=== PATIENT | female | born 1975 ===

== ENCOUNTER → 2020-07-15 11:32 | Outpatient (BNVA) | payer OTHER, SELFPAY | PROVIDERS: PCP Nurse Practitioner; Visit Provider Nurse Practitioner Gerontology | DX: E11.65 Type 2 diabetes mellitus with hyperglycemia (principal); E11.42 Type 2 diabetes mellitus with diabetic polyneuropathy; Z79.4 Long term (current) use of insulin; I10 Essential (primary) hypertension; E55.9 Vitamin D deficiency, unspecified | CPT/HCPCS: 82947; 99214 ==

== ENCOUNTER → 2020-09-10 09:10 | Outpatient (BNVA) | payer OTHER, SELFPAY | PROVIDERS: PCP Nurse Practitioner; Visit Provider Nurse Practitioner Gerontology | DX: Z76.89 Persons encountering health services in other specified circumstances (principal) ==

== ENCOUNTER 2020-09-11 13:25 | Outpatient (REF) | payer OTHER, SELFPAY | END 2020-09-11 13:26 | disposition home or self-care (01) | LOC: HO.LAB 13:25 | PROVIDERS: PCP Hospitalist; Visit Provider Internal Medicine | DX: Z20.828 Contact with and (suspected) exposure to other viral communicable diseases (principal) | CPT/HCPCS: C9803; U0003 ==

== ENCOUNTER → 2020-10-25 09:33 | Outpatient (BNVA) | payer OTHER, SELFPAY | PROVIDERS: PCP Hospitalist; Visit Provider Nurse Practitioner Gerontology ==

== ENCOUNTER → 2020-12-16 11:26 | Outpatient (BNVA) | payer OTHER, SELFPAY | PROVIDERS: PCP Hospitalist; Visit Provider Nurse Practitioner Gerontology | DX: E11.42 Type 2 diabetes mellitus with diabetic polyneuropathy (principal); E11.65 Type 2 diabetes mellitus with hyperglycemia; Z79.4 Long term (current) use of insulin; I10 Essential (primary) hypertension; E55.9 Vitamin D deficiency, unspecified | CPT/HCPCS: 82947 ==

== ENCOUNTER → 2021-01-30 10:26 | Outpatient (BNVA) | payer OTHER, SELFPAY | PROVIDERS: PCP Hospitalist; Visit Provider Nurse Practitioner Gerontology | DX: E11.42 Type 2 diabetes mellitus with diabetic polyneuropathy (principal); I10 Essential (primary) hypertension; E55.9 Vitamin D deficiency, unspecified | CPT/HCPCS: 82947 ==

== ENCOUNTER → 2021-05-02 10:13 | Outpatient (BNVA) | payer OTHER, SELFPAY | PROVIDERS: PCP Hospitalist; Visit Provider Nurse Practitioner Gerontology | DX: E11.42 Type 2 diabetes mellitus with diabetic polyneuropathy (principal); I10 Essential (primary) hypertension; E55.9 Vitamin D deficiency, unspecified | CPT/HCPCS: 82947; 99212 ==

== ENCOUNTER → 2021-10-02 12:33 | Outpatient (BNVA) | payer OTHER, SELFPAY | PROVIDERS: PCP Hospitalist; Visit Provider Nurse Practitioner Gerontology | DX: E11.42 Type 2 diabetes mellitus with diabetic polyneuropathy (principal); E55.9 Vitamin D deficiency, unspecified; I10 Essential (primary) hypertension | CPT/HCPCS: 82947; 83036; 99212 ==

== ENCOUNTER 2021-10-14 12:41 | Outpatient (REF) | payer OTHER, SELFPAY ==
[2021-10-14 14:03] LABS: COVID-19 Test Negative (Negative); IDNOW Serial# 16C4AD1C
== END 2021-10-14 12:42 | disposition home or self-care (01) ==
LOC: HO.LAB 12:41
PROVIDERS: Visit Provider Internal Medicine
DX: Z20.822 Contact with and (suspected) exposure to COVID-19 (principal)
CPT/HCPCS: 87635; C9803

== ENCOUNTER → 2022-01-01 12:48 | Outpatient (BNVA) | payer OTHER, SELFPAY | PROVIDERS: PCP Hospitalist; Visit Provider Nurse Practitioner Gerontology | DX: E11.42 Type 2 diabetes mellitus with diabetic polyneuropathy (principal); E55.9 Vitamin D deficiency, unspecified; I10 Essential (primary) hypertension | CPT/HCPCS: 82947; 83036; 99212 ==

== ENCOUNTER → 2022-02-05 12:50 | Outpatient (BNVA) | payer OTHER, SELFPAY | PROVIDERS: PCP Hospitalist; Visit Provider Registered Nurse Diabetes Educator | DX: E11.65 Type 2 diabetes mellitus with hyperglycemia (principal); Z79.4 Long term (current) use of insulin | CPT/HCPCS: 99211 ==

== ENCOUNTER → 2022-03-11 12:12 | Outpatient (BNVA) | payer OTHER, SELFPAY | PROVIDERS: PCP Hospitalist; Visit Provider Registered Nurse Diabetes Educator | DX: E11.65 Type 2 diabetes mellitus with hyperglycemia (principal); Z79.4 Long term (current) use of insulin | CPT/HCPCS: 99211 ==

== ENCOUNTER 2022-03-20 11:58 | Emergency (ER) | payer OTHER, SELFPAY ==
--- NOTE | ~2022-03-20 | XR_ITS ---
EXAMINATION: XR CHEST CLINICAL INFORMATION: Chest pain COMPARISON: Previous chest x-ray June 2019 TECHNIQUE: Frontal view of the chest was obtained. FINDINGS: No significant abnormality is noted involving the heart, lungs, mediastinum, bony thorax or soft tissues. XR/XR chest 1V IMPRESSION: Unremarkable examination.
--- NOTE | 2022-03-20 12:01 | ECG_ITS ---
Test Reason : cp Blood Pressure : / mmHG Vent. Rate : 076 BPM Atrial Rate : 076 BPM P-R Int : 182 ms QRS Dur : 078 ms QT Int : 376 ms P-R-T Axes : 014 007 024 degrees QTc Int : 423 ms Normal sinus rhythm Cannot rule out Anterior infarct (cited on or before 26-SEP-2016) Abnormal ECG When compared with ECG of 24-JUL-2019 21:19, No significant change was found Referred By: Generic ED Physician Electronically Signed By:HARVEY ELIZABETH MD
[2022-03-20 12:11] VITALS: BP 137/81; PULSE 78; RESP 18; TEMP 36.9; O2SAT 98; BMI 34.9
[2022-03-20 12:28] LABS: MANUAL DIFF FLAG NO
[2022-03-20 12:36] LABS: Basophils Percent Auto 0.2 % (0-2); Eosinophils Absolute Auto 0.1 X10*3/uL (0.0-0.4); Hemoglobin 12.3 g/dl (12.0-16.0); Imm Gran Abs Auto 0.05 X10*3/uL (0.00-0.03); Imm Gran Pct Auto 0.4 % (0.0-0.4); Lymphocytes Absolute Auto 3.3 X10*3/uL (1.2-4.9); Lymphocytes Percent Auto 25.8 % (20-40); Mean Corpuscular HGB Conc 32.4 g/dl (31.0-35.0); Mean Corpuscular Hemoglobin 27.8 pg (27.0-33.0); Mean Platelet Volume 10.5 fL (9.4-12.3); Monocytes Absolute Auto 0.6 X10*3/uL (0.1-1.2); Monocytes Percent Auto 4.9 % (2-11); Neutrophils Absolute Auto 8.7 x10*3/uL (2.0-8.3); Neutrophils Percent Auto 67.7 % (45-73); Platelet Count 364 X10*3/uL (160-400); Red Blood Count 4.42 X10*6/uL (4.20-5.50); Red Cell Distribution Width 13.6 % (11.0-16.0); White Blood Count 12.8 X10*3/uL (4.8-10.8)
[2022-03-20 12:46] LABS: Alanine Aminotransferase 26 U/L (0-31); Albumin Level 4.1 g/dL (3.5-5.0); Alkaline Phosphatase 80 U/L (39-117); Anion Gap 13 (12-20); Aspartate Amino Transferase 23 U/L (5-31); Bilirubin Total 0.3 mg/dL (0.0-1.0); Blood Urea Nitrogen 11 mg/dL (9-16); Calcium 9.6 mg/dL (8.4-10.2); Carbon Dioxide 25 mmol/L (22-29); Chloride 103 mmol/L (96-108); Creatinine Clr Calc Pharmacy 109.3; Estimated Glomerular Filt Rate > 60; Glucose Random 204 mg/dL (60-115); Sodium 137 mmol/L (135-145)
[2022-03-20 12:52] LABS: Troponin-I High Sensitivity < 3.5 ng/L (<3.5-17.0)
--- NOTE | 2022-03-20 12:53 | ED_ITS ---
HPI - Chest Pain General Chief Complaint: Chest Pain Stated Complaint: chest pains Time Seen by Provider: 03/20/22 12:53 Source: patient and family (daughter interpreting) Mode of arrival: ambulatory Limitations: language barrier (speaks thai) History of Present Illness HPI narrative: 46-year-old female who is Turkmen speaking here with her daughter who translatesfor her, presenting for chest pain and rash on chest for the last 3 days. Patient has felt a burning pain in her chest that is worse today. The pain is constant, and is worse with movement. No radiation of pain, no diaphoresis no nausea no shortness of breath. Patient does not smoke or drink, is vaccinated for COVID. Patient states she has a burning spot on her upper left chest. Past medical history insulin-dependent diabetes, hypertension, GERD, depression, anxiety, leukocytosis, migraine. Reports history of heart palpitations, is not having heart palpitations now. Patient is very concerned that she may have cancer, and wants us to run all the tests to rule out cancer. I explained to patient that that was not possible to do here in the emergency room, and that she did not Related Data Home Medications Medication Instructions Recorded Confirmed albuterol sulfate 90 mcg/actuation 2 puff inhalation Q4-5H PRN 07/04/20 01/01/22 aerosol inhaler amitriptyline 25 mg tablet 25 mg PO DAILY 07/04/20 01/01/22 fluoxetine 20 mg capsule 20 mg PO DAILY 07/04/20 01/01/22 fluticasone propionate 50 1 spray intranasal DAILY 07/04/20 01/01/22 mcg/actuation nasal spray,suspension (Flonase Allergy Relief) hydroxyzine HCl 25 mg tablet 25 mg PO BEDTIME 07/04/20 01/01/22 lisinopril 10 mg tablet 10 mg PO DAILY 07/04/20 01/01/22 lorazepam 0.5 mg tablet 0.5 mg PO DAILY PRN 07/04/20 01/01/22 quetiapine 25 mg tablet (Seroquel) 25 mg PO BEDTIME 07/04/20 05/02/21 zolpidem 10 mg tablet (Ambien) 10 mg PO BEDTIME PRN 07/04/20 01/01/22 blood sugar diagnostic #10 ea 07/15/20 01/01/22 loratadine 10 mg tablet (Allergy 10 mg PO DAILY PRN 12/16/20 01/01/22 Relief (loratadine)) meloxicam 7.5 mg tablet 7.5 mg PO DAILY 05/02/21 01/01/22 Previous Rx's Medication Instructions Recorded blood sugar diagnostic (FreeStyle 1 strip miscellaneous .qd 90 days 06/26/21 Lite Strips) #100 strips flash glucose sensor (FreeStyle 1 ea topical Q2W 90 days #6 ea 06/26/21 Sal 14 Day Sensor) glucose 4 gram chewable tablet 12 g PO Q15M PRN hypoglycemia 90 06/26/21 (Dex4 Glucose) days #60 tabs pen needle, diabetic 32 gauge x #150 ea 06/26/21 metformin 1,000 mg tablet 1,000 mg PO BID 90 days #180 tabs 06/27/21 cholecalciferol (vitamin D3) 50 50 mcg PO DAILY #30 caps 10/09/21 mcg (2,000 unit) capsule gabapentin 600 mg tablet 600 mg PO TID 30 days #90 tabs 01/01/22 insulin aspart U-100 100 unit/mL See Rx Instructions subcut TID #15 01/01/22 (3 mL) subcutaneous pen mL pen needle, diabetic 32 gauge x #125 ea 01/01/22 (BD Ultra-Fine Che Pen Needle) insulin glargine 100 unit/mL (3 32 unit (0.32 mL) subcut QAM 90 02/12/22 mL) subcutaneous pen (Lantus days #28.8 mL Solostar U-100 Insulin) triamcinolone acetonide 0.5 % 1 appl topical BID apply to rash 03/20/22 topical cream on chest #15 grams Allergies Allergy/AdvReac Type Severity Reaction Status Date / Time No Known Allergies Allergy Verified 01/01/22 13:16 Review of Systems Constitutional: Constitutional: Denies body ache(s), Denies chills, Denies fatigue, Denies fever(s), Denies headache(s), Denies malaise and Denies weakness Eyes: Eyes: Denies diplopia ENT: Denies vertigo, Denies dizziness, Denies otalgia, Denies headache(s), Denies mouth pain, Denies post nasal drip, Denies sinus pain, Denies sinus pressure, Denies sore throat and Denies throat swelling Cardiovascular: Cardiovascular: Reports chest pain, Denies syncope, Denies leg edema, Denies lightheadedness, Denies Loss of Consciousness, Denies palpitations and Denies dyspnea Respiratory: Respiratory: Denies chest congestion, Denies cough and Denies dyspnea Gastrointestinal: Gastrointestinal: Denies abdominal pain, Denies hematochezia, Denies constipation, Denies diarrhea, Denies nausea and Denies vomiting Genitourinary: Genitourinary: Reports no additional female genitourinary complaints Musculoskeletal: Musculoskeletal: Reports no additional musculoskeletal complaints and Denies back pain Integumentary/Breasts: Skin/Breast: Reports rash Neurologic: Denies confusion, Denies vertigo, Denies dizziness, Denies syncope, Denies headache(s) and Denies weakness Psychiatric: Psychiatric: Denies anxiety, Denies confusion and Denies depression Endocrine: Endocrine: Denies fatigue and Denies palpitations Allergic/Immunologic: Allergic/Immunologic: Denies throat swelling PMFSH Past Medical History Medical History Acid indigestion Anxiety Asthma Back pain Depression Leukocytosis Migraine Palpitations Surgical History Hx of section Hx of mammogram Family History Family History Father Hypertension Diabetes Heart disease Mother Diabetes Heart disease Hypertension Social History Social History (Updated 01/01/22 @ 13:51 by NARAYAN Kinsey) Household Members: Family and Children Alcohol intake: current Alcohol intake frequency: does not drink Patient Tobacco Use Status: Never used Tobacco Advance Directives: No Advance Directives Information Provided: No Patient : Yes Physical Exam Vital Signs: Vital Signs: Last Vital Signs Temp 98.2 F 03/20/22 15:20 Pulse 69 03/20/22 15:20 Resp 16 03/20/22 15:20 BP 127/77 03/20/22 15:20 Pulse Ox 98 03/20/22 15:20 O2 Del Method 03/20/22 15:20 BMI result Body Mass Index 34.9 Const: General: No confusion Nutritional Appearance: well nourished Orientation/consciousness: No confusion Limitations: no limitations Eyes: Conjunctivae: conjunctivae normal Pupils: Equal, round and reactive pupils present EOM: EOMs intact bilaterally Neck: Neck: Yes full ROM, Yes no lymphadenopathy and Yes supple Resp: Effort & Inspection: normal respiratory effort and able to speak in complete sentences Auscultation: clear to auscultation bilaterally, no crackles, no rales, no rhonchi and no wheezes Cardio: Rate: regular rate Rhythm: regular rhythm Heart sounds: S1 normal heart sound present and S2 normal heart sound present GI: Inspection: Yes normal to inspection Palpation (GI): Soft to palpation, nontender, no guarding and not rigid Percussion: Yes normal to percussion Auscultation: normal bowel sounds Skin: Other: Small scab the rash 3 cm in diameter left upper chest Neuro: General: No confusion Cranial nerves: Yes Equal, round and reactive pupils present Extrem: General: Yes normal to inspection and Yes full ROM Psych: Appearance: grossly normal Affect: normal affect Attitude: cooperative Thought process: Normal thought process present Course Course Course Narrative: 46-year-old female who is insulin-dependent diabetic presents with 3 days of chest pain and what she initially stated as a burning rash on her upper left chest. Patient is anxious, refuses morphine for concern of side effects, her chest pain resolved completely with Tylenol Patient has had stable vitals, not tachycardic, not hypoxic, she PERCs out. Patient has 2 negative troponins 3 hours apart. Patient has small 3 cm scab a rash on upper left chest. White blood cell count 12.8, blood glucose 204, chest x-ray negative, labs otherwise unremarkable Patient has a heart score of 4, EKG shows possible old anterior infarct. Initially thought rash in upper left chest could be zoster, but patient clarifies that the rash is just itchy, and is not burning in nature, is not painful. Referred patient to Cardiology, gave return precautions of chest pain, shortness of breath Daughter was there for entire workup and discussion, she translated everything into Turkmen. All patient's questions and daughter's questions were answered Reevaluation(s) Reevaluation #1: FINDINGS: No significant abnormality is noted involving the heart, lungs, mediastinum, bony thorax or soft tissues. XR/XR chest 1V IMPRESSION: Unremarkable examination. ? MDM - Chest Pain Lab Data Result diagrams: 03/20/22 12:25 03/20/22 12:25 Labs: Lab Results 03/20/22 03/20/22 03/20/22 Range/Units 12:25 12:25 12:25 WBC 12.8 H (4.8-10.8) X10*3/uL RBC 4.42 (4.20-5.50) X10*6/uL Hgb 12.3 (12.0-16.0) g/dl Hct 38.0 (37.0-47.0) % MCV 86.0 (80.0-98.0) fL MCH 27.8 (27.0-33.0) pg MCHC 32.4 (31.0-35.0) g/dl RDW 13.6 (11.0-16.0) % Plt Count 364 (160-400) X10*3/uL MPV 10.5 (9.4-12.3) fL Immature Gran % (Auto) 0.4 (0.0-0.4) % Neut % (Auto) 67.7 (45-73) % Lymph % (Auto) 25.8 (20-40) % [place] % (Auto) 4.9 (2-11) % Eos % (Auto) 1.0 (0-4) % Baso % (Auto) 0.2 (0-2) % Lymph # (Auto) 3.3 (1.2-4.9) X10*3/uL [place] # (Auto) 0.6 (0.1-1.2) X10*3/uL Eos # (Auto) 0.1 (0.0-0.4) X10*3/uL Baso # (Auto) 0.0 (0.0-0.2) X10*3/uL Abs Immat Gran (auto) 0.05 H (0.00-0.03) X10*3/uL Absolute Neuts (auto) 8.7 H (2.0-8.3) x10*3/uL Absolute Nucleated RBC 0.000 (0.0-0.012) X10*3/uL Nucleated RBC % (auto) 0.0 (0.0-0.2) /100WBC Sodium 137 (135-145) mmol/L Potassium 4.0 (3.3-5.1) mmol/L Chloride 103 (96-108) mmol/L Carbon Dioxide 25 (22-29) mmol/L Anion Gap 13 (12-20) BUN 11 (9-16) mg/dL Creatinine 0.70 (0.5-1.4) mg/dL Estim Creat Clear Calc 109.3 Estimated GFR > 60 POC Glucose (60-115) mg/dL Random Glucose 204 H (60-115) mg/dL Calcium 9.6 (8.4-10.2) mg/dL Total Bilirubin 0.3 (0.0-1.0) mg/dL AST 23 (5-31) U/L ALT 26 (0-31) U/L Alkaline Phosphatase 80 (39-117) U/L Troponin I High Sens < 3.5 (<3.5-17.0) ng/L Total Protein 8.0 (6.5-8.0) g/dL Albumin 4.1 (3.5-5.0) g/dL 03/20/22 03/20/22 Range/Units 15:02 15:36 WBC (4.8-10.8) X10*3/uL RBC (4.20-5.50) X10*6/uL Hgb (12.0-16.0) g/dl Hct (37.0-47.0) % MCV (80.0-98.0) fL MCH (27.0-33.0) pg MCHC (31.0-35.0) g/dl RDW (11.0-16.0) % Plt Count (160-400) X10*3/uL MPV (9.4-12.3) fL Immature Gran % (Auto) (0.0-0.4) % Neut % (Auto) (45-73) % Lymph % (Auto) (20-40) % [place] % (Auto) (2-11) % Eos % (Auto) (0-4) % Baso % (Auto) (0-2) % Lymph # (Auto) (1.2-4.9) X10*3/uL [place] # (Auto) (0.1-1.2) X10*3/uL Eos # (Auto) (0.0-0.4) X10*3/uL Baso # (Auto) (0.0-0.2) X10*3/uL Abs Immat Gran (auto) (0.00-0.03) X10*3/uL Absolute Neuts (auto) (2.0-8.3) x10*3/uL Absolute Nucleated RBC (0.0-0.012) X10*3/uL Nucleated RBC % (auto) (0.0-0.2) /100WBC Sodium (135-145) mmol/L Potassium (3.3-5.1) mmol/L Chloride (96-108) mmol/L Carbon Dioxide (22-29) mmol/L Anion Gap (12-20) BUN (9-16) mg/dL Creatinine (0.5-1.4) mg/dL Estim Creat Clear Calc Estimated GFR POC Glucose 85 (60-115) mg/dL Random Glucose (60-115) mg/dL Calcium (8.4-10.2) mg/dL Total Bilirubin (0.0-1.0) mg/dL AST (5-31) U/L ALT (0-31) U/L Alkaline Phosphatase (39-117) U/L Troponin I High Sens < 3.5 (<3.5-17.0) ng/L Total Protein (6.5-8.0) g/dL Albumin (3.5-5.0) g/dL ECG Data ECG #1: Interpretation: EKG shows sinus at a rate of 76, OH interval 182, QRS 78, QTC 423, normal axis, Q-waves in leads 3, V1, V2 no ST depression or elevation, no T-wave abnormalities Possible old anterior infarct Scores Heart Score History: -0- slightly suspicious ECG: -1- non specific repolarization disturbance Age: -1- >45 - <65 Risk factory: -2- 3 or more risk factors or treated atherosclerosis Troponin: -0- < or = normal limit Score: 4 Risk: 16.6% Discharge Plan Discharge Clinical Impression: Atypical chest pain, Rash Patient Disposition: Home, Self-Care Instructions: Chest Pain (ED), Acute Rash (ED) Additional Instructions: I have referred her to Cardiology as a follow-up from today's emergency room visit. If you do not hear from them by Wednesday I want you to call them at [phone] I have prescribed a cream to her pharmacy which you may apply to the rash on her chest twice a day until the rash goes away Please alternate Tylenol and ibuprofen for pain. Take 1 or the other every 4 hours. For example, at midnight take 1000 mg of Tylenol, then at 4:00 a.m. take 800 mg ibuprofen, at 8:00 a.m. take 1000 mg of Tylenol, at noon take 800 mg of ibuprofen, at 4:00 p.m. take 1000 mg of Tylenol, at 8:00 p.m. take 800 mg of ibuprofen. Do not exceed 3000 mg of Tylenol in 24 hours. This method is proven to be as effective as an opioid for pain control. If you have worsening chest pain, shortness of breath, or any other new or concerning symptoms, please return to the emergency room Prescriptions: New triamcinolone acetonide 0.5 % cream 1 appl topical BID Qty: 15 0RF No Action FreeStyle Lite Strips Strip 1 strip miscellaneous .qd 90 Days Qty: 100 10RF FreeStyle Sal 14 Day Sensor Kit 1 ea topical Q2W 90 Days Qty: 6 11RF glucose [Dex4 Glucose] 4 gram tablet,chewable 12 g PO Q15M PRN (Reason: hypoglycemia) 90 Days Qty: 60 3RF Rx Instructions: until symptoms of low blood sugar are controlled (DME) pen needle, diabetic 32 gauge x 5/32 needle See Rx Instructions subcut .MEDSUPPLY Qty: 150 11RF Rx Instructions: Once a day metformin 1,000 mg tablet 1,000 mg PO BID 90 Days Qty: 180 3RF cholecalciferol (vitamin D3) 50 mcg (2,000 unit) capsule 50 mcg PO DAILY Qty: 30 11RF Lantus Solostar U-100 Insulin 100 unit/mL (3 mL) insulin pen 32 unit subcut QAM 90 Days Qty: 28.8 1RF (DME) FreeStyle Precision [place] Strips Strip See Rx Instructions .ROUTE DAILY Qty: 10 Rx Instructions: As directed meloxicam 7.5 mg tablet 7.5 mg PO DAILY lorazepam 0.5 mg tablet 0.5 mg PO DAILY PRN hydroxyzine HCl 25 mg tablet 25 mg PO BEDTIME zolpidem [Ambien] 10 mg tablet 10 mg PO BEDTIME PRN fluoxetine 20 mg capsule 20 mg PO DAILY quetiapine [Seroquel] 25 mg tablet 25 mg PO BEDTIME fluticasone propionate [Flonase Allergy Relief] 50 mcg/actuation spray,suspen [place] 1 spray intranasal DAILY Rx Instructions: administer into each nostril amitriptyline 25 mg tablet 25 mg PO DAILY lisinopril 10 mg tablet 10 mg PO DAILY albuterol sulfate 90 mcg/actuation HFA aerosol inhaler 2 puff inhalation Q4-5H PRN loratadine [Allergy Relief (loratadine)] 10 mg tablet 10 mg PO DAILY PRN insulin aspart U-100 100 unit/mL (3 mL) insulin pen See Rx Instructions subcut TID Qty: 15 2RF Rx Instructions: 4 units before breakfast and dinner and 6 units before lunch subcut 3 times a day; (DME) pen needle, diabetic [BD Ultra-Fine Che Pen Needle] 32 gauge x 5/32 needle See Rx Instructions .ROUTE .MEDSUPPLY Qty: 125 6RF Rx Instructions: As directed four times a day gabapentin 600 mg tablet 600 mg PO TID 30 Days Qty: 90 6RF Referrals: Jm Osuna MD [Physician] - Interventions: ED Discharge Assessment Last Done: 03/20/22 16:24 Discharge Date/Time: 03/20/22 16:25
[2022-03-20 14:17] VITALS: BP 129/72; PULSE 75; RESP 18; TEMP 36.8
[2022-03-20 14:36] VITALS: PULSE 72
--- NOTE | 2022-03-20 14:44 | PC.NURSE ---
pt a/o x 3 refused pain med at this time concerns about side effects. mlp to re-eval.
[2022-03-20 15:06] LABS: Glucose, Whole Blood 85 mg/dL (60-115)
[2022-03-20] MEDS: Acetaminophen 325 MG TABLET 975 MG PO (15:06)
[2022-03-20 15:20] VITALS: BP 127/77; PULSE 69; RESP 16; TEMP 36.8; O2SAT 98
[2022-03-20 16:04] LABS: Troponin-I High Sensitivity < 3.5 ng/L (<3.5-17.0)
== END 2022-03-20 16:25 | disposition home or self-care (01) ==
PROVIDERS: Physician Assistant; Emergency Provider Emergency Medicine Emergency Medical Services; PCP Hospitalist
DX: R07.89 Other chest pain (principal); R00.2 Palpitations; R21 Rash and other nonspecific skin eruption; E11.9 Type 2 diabetes mellitus without complications; I10 Essential (primary) hypertension; Z79.4 Long term (current) use of insulin; Z79.899 Other long term (current) drug therapy
CPT/HCPCS: 36415; 71045; 80053; 82947; 84484; 85025; 93005; 99283; 99284

== ENCOUNTER → 2022-04-10 13:00 | Outpatient (BNVA) | payer OTHER, SELFPAY | PROVIDERS: PCP Hospitalist; Visit Provider Registered Nurse Diabetes Educator | DX: E11.42 Type 2 diabetes mellitus with diabetic polyneuropathy (principal); Z79.4 Long term (current) use of insulin | CPT/HCPCS: 99211 ==

== ENCOUNTER 2022-09-27 18:53 | Emergency (ER) | payer OTHER, SELFPAY ==
[2022-09-27 18:58] VITALS: BP 179/87; PULSE 92; RESP 18; TEMP 36.9; O2SAT 99; BMI 35.5
--- NOTE | 2022-09-27 18:59 | ED.GENADULT ---
HPI - General Adult General Chief complaint: Dizziness <SHARRON Galindo - Last Filed: 09/27/22 19:00> Stated complaint: palpatations,weakness <SHARRON Galindo - Last Filed: 09/27/22 19:00> Time Seen by Provider: 09/27/22 21:35 <SHARRON Galindo - Last Filed: 09/27/22 19:00> Source: patient <SHARRON Galindo - Last Filed: 09/27/22 19:00> family (Daughter) <Jos Gerard MD - Last Filed: 09/27/22 22:22> Mode of arrival: wheelchair <SHARRON Galindo - Last Filed: 09/27/22 19:00> Limitations: no limitations <SHARRON Galindo - Last Filed: 09/27/22 19:00> language barrier (Patient speaks Telugu, the patient's daughter speaks Swedish in air back and was used as the physical therapist center manager) <Jos Gerard MD - Last Filed: 09/27/22 22:22> History of Present Illness HPI narrative: 47-year-old female who presents emergency department with multiple complaints. The patient states that she is feeling very and easy. She states she feels dizzy. She states that when she walks she feels off balance and she has difficulty feeling her feet. She states that she feels like she is dying. She states she has been having difficulty eating of that when she eats she gets full quickly. She states she has been experiencing chest tightness daily. She states that she developed multiple episodes a and they can last up to 1 hour. She points to left chest when asked to localize this discomfort she states that it is a sharp pressure-like pain. She states that she often feels short of breath especially when she has chest tightness. She denied fever or chills. She states she occasionally gets throat pain but has no throat pain at this time. She has intermittent nausea with no vomiting. She states she feels constipated. The patient recently was started on Trulicity to try to help better control her diabetes. I did review the external record from her endocrinology office visit on 01/01/2022. Patient has had difficulty controlling her blood pressures since she has not been giving herself insulin boluses when she has high glucose. The patient states that she has been under increased stress mainly secondary to the recent of her in May of 2022. She does have a psychiatrist but she does not know which medications her psychiatrist as prescribed for her for her anxiety. <Jos Gerard MD - Last Filed: 09/27/22 22:22> Related Data Home medications: Home Medications Medication Instructions Recorded Confirmed albuterol sulfate 90 mcg/actuation 2 puff inhalation Q4-5H PRN 07/04/20 01/01/22 aerosol inhaler amitriptyline 25 mg tablet 25 mg PO DAILY 07/04/20 01/01/22 fluoxetine 20 mg capsule 20 mg PO DAILY 07/04/20 01/01/22 fluticasone propionate 50 1 spray intranasal DAILY 07/04/20 01/01/22 mcg/actuation nasal spray,suspension (Flonase Allergy Relief) hydroxyzine HCl 25 mg tablet 25 mg PO BEDTIME 07/04/20 01/01/22 lisinopril 10 mg tablet 10 mg PO DAILY 07/04/20 01/01/22 lorazepam 0.5 mg tablet 0.5 mg PO DAILY PRN 07/04/20 01/01/22 quetiapine 25 mg tablet (Seroquel) 25 mg PO BEDTIME 07/04/20 05/02/21 zolpidem 10 mg tablet (Ambien) 10 mg PO BEDTIME PRN 07/04/20 01/01/22 blood sugar diagnostic #10 ea 07/15/20 01/01/22 loratadine 10 mg tablet (Allergy 10 mg PO DAILY PRN 12/16/20 01/01/22 Relief (loratadine)) meloxicam 7.5 mg tablet 7.5 mg PO DAILY 05/02/21 01/01/22 Previous Rx's Medication Instructions Recorded blood sugar diagnostic (FreeStyle 1 strip miscellaneous .qd 90 days 06/26/21 Lite Strips) #100 strips glucose 4 gram chewable tablet 12 g PO Q15M PRN hypoglycemia 90 06/26/21 (Dex4 Glucose) days #60 tabs pen needle, diabetic 32 gauge x #150 ea 06/26/21 cholecalciferol (vitamin D3) 50 50 mcg PO DAILY #30 caps 10/09/21 mcg (2,000 unit) capsule gabapentin 600 mg tablet 600 mg PO TID 30 days #90 tabs 01/01/22 pen needle, diabetic 32 gauge x #125 ea 01/01/22 (BD Ultra-Fine Che Pen Needle) insulin glargine 100 unit/mL (3 32 unit (0.32 mL) subcut QAM 90 02/12/22 mL) subcutaneous pen (Lantus days #28.8 mL Solostar U-100 Insulin) triamcinolone acetonide 0.5 % 1 appl topical BID apply to rash 03/20/22 topical cream on chest #15 grams flash glucose sensor (FreeStyle 1 ea topical Q2W 90 days #6 ea 04/28/22 Sal 14 Day Sensor kit) insulin lispro 100 unit/mL See Rx Instructions subcut TID #15 07/02/22 subcutaneous pen mL metformin 1,000 mg tablet 1,000 mg PO BID 30 days #60 tabs 08/25/22 <SHARRON Galindo - Last Filed: 09/27/22 19:00> Allergies/adverse reactions: Allergies Allergy/AdvReac Type Severity Reaction Status Date / Time No Known Allergies Allergy Verified 01/01/22 13:16 <SHARRON Galindo - Last Filed: 09/27/22 19:00> Review of Systems Review of Systems: Yes all other systems are reviewed and are negative <Jos Gerard MD - Last Filed: 09/27/22 22:22> [facility] Past Medical History [facility] Narrative: Social history: She denies tobacco, alcohol and drug use. She is here with her daughter. Her recently in May of 2022. <Jos Gerard MD - Last Filed: 09/27/22 22:22> Medical History: Medical History Acid indigestion Anxiety Asthma Back pain Depression Essential hypertension Leukocytosis Migraine Palpitations Type 2 diabetes mellitus with hyperglycemia, with long-term current use of insulin Type 2 diabetes mellitus with polyneuropathy Vitamin D insufficiency <SHARRON Galindo - Last Filed: 09/27/22 19:00> Surgical History: Surgical History Hx of section Hx of mammogram <SHARRON Galindo - Last Filed: 09/27/22 19:00> Family History Family History: Family History Father Hypertension Diabetes Heart disease Mother Diabetes Heart disease Hypertension <SHARRON Galindo - Last Filed: 09/27/22 19:00> Social History Social History: Social History Household Members: Family and Children Alcohol intake: current Alcohol intake frequency: does not drink Patient Tobacco Use Status: Never used Tobacco Advance Directives: No Advance Directives Information Provided: No <SHARRON Galindo - Last Filed: 09/27/22 19:00> Physical Exam ED Vital Signs: Vital Signs - 24 hr 09/27/22 18:58 Temperature 98.4 F Pulse Rate 92 Respiratory Rate 18 Blood Pressure 179/87 H Pulse Oximetry 99 Oxygen Delivery Method Room Air BMI result Body Mass Index 35.5 <SHARRON Galindo - Last Filed: 09/27/22 19:00> Vital Signs - 24 hr 09/27/22 18:58 Temperature 98.4 F Pulse Rate 92 Respiratory Rate 18 Blood Pressure 179/87 H Pulse Oximetry 99 Oxygen Delivery Method Room Air BMI result Body Mass Index 35.5 <Jos Gerard MD - Last Filed: 09/27/22 22:22> Const General: cooperative and no acute distress <Jos Gerard MD - Last Filed: 09/27/22 22:22> Orientation/consciousness: oriented to person and oriented to place <Jos Gerard MD - Last Filed: 09/27/22 22:22> Limitations: no limitations <Jos Gerard MD - Last Filed: 09/27/22 22:22> HENMT Head: Yes normal to inspection, Yes normocephalic and Yes atraumatic <Jos Gerard MD - Last Filed: 09/27/22 22:22> Ears: external ears normal <Jos Gerard MD - Last Filed: 09/27/22 22:22> General nose exam: Normal external nose present <Jos Gerard MD - Last Filed: 09/27/22 22:22> Face and sinus: Yes normal facial exam <Jos Gerard MD - Last Filed: 09/27/22 22:22> Mouth: Normal oral and palatal mucosa present <MD Dano Hernandez Last Filed: 09/27/22 22:22> Throat: Yes posterior oropharynx normal <Jos Gerard MD - Last Filed: 09/27/22 22:22> Eyes General: appearance normal, both eyes and all related structures <Jos Gerard MD - Last Filed: 09/27/22 22:22> Pupils: Equal, round and reactive pupils present <Jos Gerard MD - Last Filed: 09/27/22 22:22> Neck Neck: Yes normal visual inspection, Yes no lymphadenopathy, Yes trachea midline and Yes supple <Jos Gerard MD - Last Filed: 09/27/22 22:22> Chest Chest palpation & inspection: normal inspection of the chest and normal palpation of entire chest wall <Jos Gerard MD - Last Filed: 09/27/22 22:22> Resp Effort & Inspection: normal respiratory effort and able to speak in complete sentences <MD Dano Hernandez Last Filed: 09/27/22 22:22> Auscultation: clear to auscultation bilaterally <Jos Gerard MD - Last Filed: 09/27/22 22:22> Cardio Rate: regular rate <MD Dano Hernandez Last Filed: 09/27/22 22:22> Rhythm: regular rhythm <MD Dano Hernandez Last Filed: 09/27/22 22:22> Heart sounds: S1 normal heart sound present, S2 normal heart sound present and no murmurs <MD Dano Hernandez Last Filed: 09/27/22 22:22> GI Inspection: Yes normal to inspection <MD Dano Hernandez Last Filed: 09/27/22 22:22> Palpation (GI): Soft to palpation, nontender and no guarding <Jos Gerard MD - Last Filed: 09/27/22 22:22> Auscultation: normal bowel sounds <Jos Gerard MD - Last Filed: 09/27/22 22:22> General: Yes no CVA tenderness <Jos Gerard MD - Last Filed: 09/27/22 22:22> Back/Spine/Pelvis Back: no CVA tenderness <Jos Gerard MD - Last Filed: 09/27/22 22:22> Skin General skin exam: no rashes or lesions noted <Jos Gerard MD - Last Filed: 09/27/22 22:22> Neuro General: oriented to person and oriented to place <Jos Gerard MD - Last Filed: 09/27/22 22:22> Cranial nerves: Yes CN's II-XII intact bilaterally and Yes Equal, round and reactive pupils present <Jos Gerard MD - Last Filed: 09/27/22 22:22> Cognition (Neuro): normal cognition <Jos Gerard MD - Last Filed: 09/27/22 22:22> Motor exam (neuro): 5/5 motor strength present throughout <Jos Gerard MD - Last Filed: 09/27/22 22:22> Extrem General: Yes normal to inspection <Jos Gerard MD - Last Filed: 09/27/22 22:22> Psych Appearance: grossly normal <Jos Gerard MD - Last Filed: 09/27/22 22:22> Speech and movement: Normal speech and movement present <Jos Gerard MD - Last Filed: 09/27/22 22:22> Affect: Anxious affect present <Jos eGrard MD - Last Filed: 09/27/22 22:22> Attitude: cooperative <Jos Gerard MD - Last Filed: 09/27/22 22:22> Thought process: Normal thought process present <Jos Gerard MD - Last Filed: 09/27/22 22:22> Course Course Course Narrative: RME performed by Tiffanie Mckeon PA-C. Patient is a 47 year old female presenting to the emergency department with palpitations. Work up ordered. Patient placed back in the waiting room pending results and room availability. <SHARRON Galindo - Last Filed: 09/27/22 19:00> Medical Decision Making Medical Decision Making [facility] Narrative: 47-year-old female who presents emergency department for evaluation of multiple complaints, please see the HPI. Patient has been under increased stress secondary to the recent of her in May of 2022. Patient does have a history of anxiety and believes that her anti anxiety medications are not helping. Patient's physical examination was unremarkable. [place] laboratory [place] [address] which is chronic she has leukocytosis of unclear etiology. Her glucose was elevated 259. Troponin was below detectable limits. COVID-19 influenza and RSV tests were negative 12 EKG was unchanged from her previous EKG dated 03/20/2022 she does have poor R-wave progression V2 and V3 and a Q-wave in V1 which is unchanged. At this time I believe that the patient's symptoms are secondary to stress reaction/anxiety and I did discuss this with the patient. I advised to discuss her symptoms with her psychiatrist at her appointment this week to see if her psychiatrist can adjust her medications to help her with her symptoms. I also believe that some of her symptoms are secondary to your diabetic neuropathy and I did discuss this with her as well. Patient was given printed and verbal instructions discharged home <Jos Gerard MD - Last Filed: 09/27/22 22:22> Differential Diagnosis Differential diagnosis includes was not limited to coronary disease, palpitations, myocardial infarction, chest wall pain, stress, anxiety, depression <Jos Gerard MD - Last Filed: 09/27/22 22:22> Lab Data [facility] Lab Attestation statement: I reviewed the patient's lab results. <Jos Gerard MD - Last Filed: 09/27/22 22:22> Please see [facility] for discussion of my laboratory interpretation <Jos Gerard MD - Last Filed: 09/27/22 22:22> Result Diagrams: : 09/27/22 19:24 09/27/22 19:24 <SHARRON Galindo - Last Filed: 09/27/22 19:00> Labs: Lab Results 09/27/22 09/27/22 09/27/22 Range/Units 19:20 19:24 19:24 WBC 13.7 H (4.8-10.8) X10*3/uL RBC 4.45 (4.20-5.50) X10*6/uL Hgb 12.3 (12.0-16.0) g/dl Hct 37.8 (37.0-47.0) % MCV 84.9 (80.0-98.0) fL MCH 27.6 (27.0-33.0) pg MCHC 32.5 (31.0-35.0) g/dl RDW 13.3 (11.0-16.0) % Plt Count 394 (160-400) X10*3/uL MPV 10.3 (9.4-12.3) fL Immature Gran % (Auto) 1.0 H (0.0-0.4) % Neut % (Auto) 69.3 (45-73) % Lymph % (Auto) 23.9 (20-40) % Yancey % (Auto) 4.9 (2-11) % Eos % (Auto) 0.6 (0-4) % Baso % (Auto) 0.3 (0-2) % Lymph # (Auto) 3.3 (1.2-4.9) X10*3/uL Yancey # (Auto) 0.7 (0.1-1.2) X10*3/uL Eos # (Auto) 0.1 (0.0-0.4) X10*3/uL Baso # (Auto) 0.0 (0.0-0.2) X10*3/uL Abs Immat Gran (auto) 0.14 H (0.00-0.03) X10*3/uL Absolute Neuts (auto) 9.5 H (2.0-8.3) x10*3/uL Absolute Nucleated RBC 0.000 (0.0-0.012) X10*3/uL Nucleated RBC % (auto) 0.0 (0.0-0.2) /100WBC Sodium 137 (135-145) mmol/L Potassium 4.3 (3.3-5.1) mmol/L Chloride 102 (96-108) mmol/L Carbon Dioxide 25 (22-29) mmol/L Anion Gap 14 (12-20) BUN 7 L (9-16) mg/dL Creatinine 0.74 (0.5-1.4) mg/dL Estim Creat Clear Calc 103.3 Estimated GFR > 60 POC Glucose 242 H (60-115) mg/dL Random Glucose 259 H (60-115) mg/dL Calcium 9.7 (8.4-10.2) mg/dL Magnesium 1.7 (1.6-2.6) mg/dL Total Bilirubin 0.2 (0.0-1.0) mg/dL AST 15 (5-31) U/L ALT 22 (0-31) U/L Alkaline Phosphatase 78 (39-117) U/L Troponin I High Sens (<3.5-17.0) ng/L Total Protein 8.0 (6.5-8.0) g/dL Albumin 4.2 (3.5-5.0) g/dL Urine Color Urine Appearance Urine pH (5.0-9.0) Ur Specific Fyffe (1.005-1.025) Urine Protein (Neg-Trace) mg/dL Urine Glucose (UA) (Negative) mg/dL Urine Ketones (Negative) mg/dL Urine Blood (Negative) Urine Nitrite (Negative) Ur Leukocyte Esterase (Negative) Urine RBC (0-2) /HPF Urine WBC (0-5) /HPF Ur Squamous Epith Cells (0-2) /HPF Urine Bacteria (None Seen) Hyaline Casts (0-2) /LPF Influenza Type A (PCR) (Negative) Influenza Type B (PCR) (Negative) RSV RNA Qual (PCR) (Negative) SARS-CoV-2 RNA (RT-PCR) (Negative) 09/27/22 09/27/22 09/27/22 Range/Units 19:24 19:24 19:31 WBC (4.8-10.8) X10*3/uL RBC (4.20-5.50) X10*6/uL Hgb (12.0-16.0) g/dl Hct (37.0-47.0) % MCV (80.0-98.0) fL MCH (27.0-33.0) pg MCHC (31.0-35.0) g/dl RDW (11.0-16.0) % Plt Count (160-400) X10*3/uL MPV (9.4-12.3) fL Immature Gran % (Auto) (0.0-0.4) % Neut % (Auto) (45-73) % Lymph % (Auto) (20-40) % Yancey % (Auto) (2-11) % Eos % (Auto) (0-4) % Baso % (Auto) (0-2) % Lymph # (Auto) (1.2-4.9) X10*3/uL Yancey # (Auto) (0.1-1.2) X10*3/uL Eos # (Auto) (0.0-0.4) X10*3/uL Baso # (Auto) (0.0-0.2) X10*3/uL Abs Immat Gran (auto) (0.00-0.03) X10*3/uL Absolute Neuts (auto) (2.0-8.3) x10*3/uL Absolute Nucleated RBC (0.0-0.012) X10*3/uL Nucleated RBC % (auto) (0.0-0.2) /100WBC Sodium (135-145) mmol/L Potassium (3.3-5.1) mmol/L Chloride (96-108) mmol/L Carbon Dioxide (22-29) mmol/L Anion Gap (12-20) BUN (9-16) mg/dL Creatinine (0.5-1.4) mg/dL Estim Creat Clear Calc Estimated GFR POC Glucose (60-115) mg/dL Random Glucose (60-115) mg/dL Calcium (8.4-10.2) mg/dL Magnesium (1.6-2.6) mg/dL Total Bilirubin (0.0-1.0) mg/dL AST (5-31) U/L ALT (0-31) U/L Alkaline Phosphatase (39-117) U/L Troponin I High Sens < 3.5 (<3.5-17.0) ng/L Total Protein (6.5-8.0) g/dL Albumin (3.5-5.0) g/dL Urine Color Yellow Urine Appearance Clear Urine pH 6.0 (5.0-9.0) Ur Specific Fyffe <= 1.005 (1.005-1.025) Urine Protein Negative (Neg-Trace) mg/dL Urine Glucose (UA) 100 H (Negative) mg/dL Urine Ketones Negative (Negative) mg/dL Urine Blood Trace H (Negative) Urine Nitrite Negative (Negative) Ur Leukocyte Esterase Negative (Negative) Urine RBC 0-2 (0-2) /HPF Urine WBC 0-5 (0-5) /HPF Ur Squamous Epith Cells 0-2 (0-2) /HPF Urine Bacteria None Seen (None Seen) Hyaline Casts 0-2 (0-2) /LPF Influenza Type A (PCR) NEGATIVE (Negative) Influenza Type B (PCR) NEGATIVE (Negative) RSV RNA Qual (PCR) NEGATIVE (Negative) SARS-CoV-2 RNA (RT-PCR) NEGATIVE (Negative) <SHARRON Galindo - Last Filed: 09/27/22 19:00> Lab Results 09/27/22 09/27/22 09/27/22 Range/Units 19:20 19:24 19:24 WBC 13.7 H (4.8-10.8) X10*3/uL RBC 4.45 (4.20-5.50) X10*6/uL Hgb 12.3 (12.0-16.0) g/dl Hct 37.8 (37.0-47.0) % MCV 84.9 (80.0-98.0) fL MCH 27.6 (27.0-33.0) pg MCHC 32.5 (31.0-35.0) g/dl RDW 13.3 (11.0-16.0) % Plt Count 394 (160-400) X10*3/uL MPV 10.3 (9.4-12.3) fL Immature Gran % (Auto) 1.0 H (0.0-0.4) % Neut % (Auto) 69.3 (45-73) % Lymph % (Auto) 23.9 (20-40) % Yancey % (Auto) 4.9 (2-11) % Eos % (Auto) 0.6 (0-4) % Baso % (Auto) 0.3 (0-2) % Lymph # (Auto) 3.3 (1.2-4.9) X10*3/uL Yancey # (Auto) 0.7 (0.1-1.2) X10*3/uL Eos # (Auto) 0.1 (0.0-0.4) X10*3/uL Baso # (Auto) 0.0 (0.0-0.2) X10*3/uL Abs Immat Gran (auto) 0.14 H (0.00-0.03) X10*3/uL Absolute Neuts (auto) 9.5 H (2.0-8.3) x10*3/uL Absolute Nucleated RBC 0.000 (0.0-0.012) X10*3/uL Nucleated RBC % (auto) 0.0 (0.0-0.2) /100WBC Sodium 137 (135-145) mmol/L Potassium 4.3 (3.3-5.1) mmol/L Chloride 102 (96-108) mmol/L Carbon Dioxide 25 (22-29) mmol/L Anion Gap 14 (12-20) BUN 7 L (9-16) mg/dL Creatinine 0.74 (0.5-1.4) mg/dL Estim Creat Clear Calc 103.3 Estimated GFR > 60 POC Glucose 242 H (60-115) mg/dL Random Glucose 259 H (60-115) mg/dL Calcium 9.7 (8.4-10.2) mg/dL Magnesium 1.7 (1.6-2.6) mg/dL Total Bilirubin 0.2 (0.0-1.0) mg/dL AST 15 (5-31) U/L ALT 22 (0-31) U/L Alkaline Phosphatase 78 (39-117) U/L Troponin I High Sens (<3.5-17.0) ng/L Total Protein 8.0 (6.5-8.0) g/dL Albumin 4.2 (3.5-5.0) g/dL Urine Color Urine Appearance Urine pH (5.0-9.0) Ur Specific F[place]ffe (1.005-1.025) Urine Protein (Neg-Trace) mg/dL Urine Glucose (UA) (Negative) mg/dL Urine Ketones (Negative) mg/dL Urine Blood (Negative) Urine Nitrite (Negative) Ur Leukocyte Esterase (Negative) Urine RBC (0-2) /HPF Urine WBC (0-5) /HPF Ur Squamous Epith Cells (0-2) /HPF Urine Bacteria (None Seen) Hyaline Casts (0-2) /LPF Influenza Type A (PCR) (Negative) Influenza Type B (PCR) (Negative) RSV RNA Qual (PCR) (Negative) SARS-CoV-2 RNA (RT-PCR) (Negative) 09/27/22 09/27/22 09/27/22 Range/Units 19:24 19:24 19:31 WBC (4.8-10.8) X10*3/uL RBC (4.20-5.50) X10*6/uL Hgb (12.0-16.0) g/dl Hct (37.0-47.0) % MCV (80.0-98.0) fL MCH (27.0-33.0) pg MCHC (31.0-35.0) g/dl RDW (11.0-16.0) % Plt Count (160-400) X10*3/uL MPV (9.4-12.3) fL Immature Gran % (Auto) (0.0-0.4) % Neut % (Auto) (45-73) % Lymph % (Auto) (20-40) % Yancey % (Auto) (2-11) % Eos % (Auto) (0-4) % Baso % (Auto) (0-2) % Lymph # (Auto) (1.2-4.9) X10*3/uL Yancey # (Auto) (0.1-1.2) X10*3/uL Eos # (Auto) (0.0-0.4) X10*3/uL Baso # (Auto) (0.0-0.2) X10*3/uL Abs Immat Gran (auto) (0.00-0.03) X10*3/uL Absolute Neuts (auto) (2.0-8.3) x10*3/uL Absolute Nucleated RBC (0.0-0.012) X10*3/uL Nucleated RBC % (auto) (0.0-0.2) /100WBC Sodium (135-145) mmol/L Potassium (3.3-5.1) mmol/L Chloride (96-108) mmol/L Carbon Dioxide (22-29) mmol/L Anion Gap (12-20) BUN (9-16) mg/dL Creatinine (0.5-1.4) mg/dL Estim Creat Clear Calc Estimated GFR POC Glucose (60-115) mg/dL Random Glucose (60-115) mg/dL Calcium (8.4-10.2) mg/dL Magnesium (1.6-2.6) mg/dL Total Bilirubin (0.0-1.0) mg/dL AST (5-31) U/L ALT (0-31) U/L Alkaline Phosphatase (39-117) U/L Troponin I High Sens < 3.5 (<3.5-17.0) ng/L Total Protein (6.5-8.0) g/dL Albumin (3.5-5.0) g/dL Urine Color Yellow Urine Appearance Clear Urine pH 6.0 (5.0-9.0) Ur Specific [place] <= 1.005 (1.005-1.025) Urine Protein Negative (Neg-Trace) mg/dL Urine Glucose (UA) 100 H (Negative) mg/dL Urine Ketones Negative (Negative) mg/dL Urine Blood Trace H (Negative) Urine Nitrite Negative (Negative) Ur Leukocyte Esterase Negative (Negative) Urine RBC 0-2 (0-2) /HPF Urine WBC 0-5 (0-5) /HPF Ur Squamous Epith Cells 0-2 (0-2) /HPF Urine Bacteria None Seen (None Seen) Hyaline Casts 0-2 (0-2) /LPF Influenza Type A (PCR) NEGATIVE (Negative) Influenza Type B (PCR) NEGATIVE (Negative) RSV RNA Qual (PCR) NEGATIVE (Negative) SARS-CoV-2 RNA (RT-PCR) NEGATIVE (Negative) <Jos Gerard MD - Last Filed: 09/27/22 22:22> Independent Interpretation Interpretation: My independent interpretation of the patient's EKG is as follows: Normal sinus rhythm rate of 84, normal MA interval, QRS duration QTC interval, inverted T-wave in lead 3 and V1. Q-wave in V1. Poor R-wave progression V1 to V2. No ST segment elevation. No ST segment depression, no PACs, no PVCs. Compared to EKG dated 03/20/2022 there is no significant change. <Jos Gerard MD - Last Filed: 09/27/22 22:22> Independent Historian Clinical information obtained from an independent historian. History obtained from or confirmed by: Other (Patient's daughter) <Jos Gerard MD - Last Filed: 09/27/22 22:22> External Record Review External record reviewed: Office record (Endocrinology record 01/01/2022) <Jos Gerard MD - Last Filed: 09/27/22 22:22> Tests considered The following testing was considered but not selected: D-dimer <Jos Gerard MD - Last Filed: 09/27/22 22:22> Prescription Management I considered prescription management with: Other (Anti anxiety medications however she has a psychiatrist and she is seeing this provider this week) <Jos Gerard MD - Last Filed: 09/27/22 22:22> Chronic Conditions Patient?s care impacted by: Diabetes and Hypertension <Jos Gerard MD - Last Filed: 09/27/22 22:22> Social Determinants Recent of her <Jos Gerard MD - Last Filed: 09/27/22 22:22> Discharge Plan Discharge Clinical Impression: Stress disorder, acute, Anxiety <SHARRON Galindo - Last Filed: 09/27/22 19:00> Patient Disposition: Home, Self-Care <SHARRON Galindo - Last Filed: 09/27/22 19:00> Instructions: Stress (ED), Anxiety (ED) <SHARRON Galindo - Last Filed: 09/27/22 19:00> Additional Instructions: Your blood work today was normal except for an elevated glucose. Your EKG was unchanged from your previous EKG At this time I think that your symptoms are caused by the stress and anxiety caused by the recent of your . Continue taking your medications as prescribed by your providers. When you see your psychiatrist this week make sure you tell them about your symptoms and the stress that your under and maybe they can adjust your medications to help with your symptoms. Follow-up with your doctor in 2 days. Please return to the emergency department if your symptoms get worse or if you develop any symptoms that are concerning to you. <SHARRON Galindo - Last Filed: 09/27/22 19:00> Prescriptions: No Action FreeStyle Lite Strips Strip 1 strip miscellaneous .qd 90 Days Qty: 100 10RF glucose [Dex4 Glucose] 4 gram tablet,chewable 12 g PO Q15M PRN (Reason: hypoglycemia) 90 Days Qty: 60 3RF Rx Instructions: until symptoms of low blood sugar are controlled (DME) pen needle, diabetic 32 gauge x 5/32 needle See Rx Instructions subcut .MEDSUPPLY Qty: 150 11RF Rx Instructions: Once a day cholecalciferol (vitamin D3) 50 mcg (2,000 unit) capsule 50 mcg PO DAILY Qty: 30 11RF Lantus Solostar U-100 Insulin 100 unit/mL (3 mL) insulin pen 32 unit subcut QAM 90 Days Qty: 28.8 1RF FreeStyle Sal 14 Day Sensor Kit 1 ea topical Q2W 90 Days Qty: 6 11RF insulin lispro 100 unit/mL insulin pen See Rx Instructions subcut TID Qty: 15 5RF Rx Instructions: 4 units before breakfast and dinner and 6 units before lunch subcut 3 times a day; 4 units before breakfast and dinner and 6 units before lunch subcut 3 times a day; subcutaneously 3 times a day; metformin 1,000 mg tablet 1,000 mg PO BID 30 Days Qty: 60 0RF Rx Instructions: FUTURE REFILLS FROM PCP. triamcinolone acetonide 0.5 % cream 1 appl topical BID Qty: 15 0RF (DME) FreeStyle Precision Krunal Strips Strip See Rx Instructions .ROUTE DAILY Qty: 10 Rx Instructions: As directed meloxicam 7.5 mg tablet 7.5 mg PO DAILY lorazepam 0.5 mg tablet 0.5 mg PO DAILY PRN hydroxyzine HCl 25 mg tablet 25 mg PO BEDTIME zolpidem [Ambien] 10 mg tablet 10 mg PO BEDTIME PRN fluoxetine 20 mg capsule 20 mg PO DAILY quetiapine [Seroquel] 25 mg tablet 25 mg PO BEDTIME fluticasone propionate [Flonase Allergy Relief] 50 mcg/actuation spray,suspension 1 spray intranasal DAILY Rx Instructions: administer into each nostril amitriptyline 25 mg tablet 25 mg PO DAILY lisinopril 10 mg tablet 10 mg PO DAILY albuterol sulfate 90 mcg/actuation HFA aerosol inhaler 2 puff inhalation Q4-5H PRN loratadine [Allergy Relief (loratadine)] 10 mg tablet 10 mg PO DAILY PRN (DME) pen needle, diabetic [BD Ultra-Fine Che Pen Needle] 32 gauge x 5/32 needle See Rx Instructions .ROUTE .MEDSUPPLY Qty: 125 6RF Rx Instructions: As directed four times a day gabapentin 600 mg tablet 600 mg PO TID 30 Days Qty: 90 6RF <SHARRON Galindo - Last Filed: 09/27/22 19:00> Interventions: ED Discharge Assessment Last Done: 09/27/22 22:20 <SHARRON Galindo - Last Filed: 09/27/22 19:00> Discharge Date/Time: 09/27/22 22:20 <SHARRON Galindo - Last Filed: 09/27/22 19:00>
--- NOTE | 2022-09-27 19:00 | ECG_ITS ---
Test Reason : CHEST PAIN Blood Pressure : / mmHG Vent. Rate : 084 BPM Atrial Rate : 084 BPM P-R Int : 184 ms QRS Dur : 084 ms QT Int : 376 ms P-R-T Axes : 022 007 020 degrees QTc Int : 444 ms Normal sinus rhythm Cannot rule out Anterior infarct (cited on or before 26-SEP-2016) Abnormal ECG When compared with ECG of 20-MAR-2022 12:00, No significant change was found Referred By: Tiffanie Mckeon Electronically Signed By:HARVEY ELIZABETH MD
[2022-09-27 19:31] LABS: Glucose, Whole Blood 242 mg/dL (60-115)
[2022-09-27 19:32] LABS: MANUAL DIFF FLAG NO
[2022-09-27 19:33] LABS: Basophils Percent Auto 0.3 % (0-2); Eosinophils Absolute Auto 0.1 X10*3/uL (0.0-0.4); Eosinophils Percent Auto 0.6 % (0-4); Hematocrit 37.8 % (37.0-47.0); Hemoglobin 12.3 g/dl (12.0-16.0); Imm Gran Abs Auto 0.14 X10*3/uL (0.00-0.03); Lymphocytes Absolute Auto 3.3 X10*3/uL (1.2-4.9); Lymphocytes Percent Auto 23.9 % (20-40); Mean Corpuscular HGB Conc 32.5 g/dl (31.0-35.0); Mean Corpuscular Hemoglobin 27.6 pg (27.0-33.0); Mean Corpuscular Volume 84.9 fL (80.0-98.0); Mean Platelet Volume 10.3 fL (9.4-12.3); Monocytes Absolute Auto 0.7 X10*3/uL (0.1-1.2); Monocytes Percent Auto 4.9 % (2-11); Neutrophils Absolute Auto 9.5 x10*3/uL (2.0-8.3); Neutrophils Percent Auto 69.3 % (45-73); Platelet Count 394 X10*3/uL (160-400); Red Blood Count 4.45 X10*6/uL (4.20-5.50); Red Cell Distribution Width 13.3 % (11.0-16.0); White Blood Count 13.7 X10*3/uL (4.8-10.8)
[2022-09-27 19:37] LABS: Appearance Urine Clear; Color Urine Yellow; Glucose Urine UA 100 mg/dL (Negative); Leukocyte Esterase Urine Negative (Negative); Nitrite Urine Negative (Negative); Specific Gravity - Urine <= 1.005 (1.005-1.025); UMIC TRIGGER UACC YES; Urine Blood Trace (Negative); Urine Ketones Negative (Negative); Urine Protein Negative (Neg-Trace)
[2022-09-27 19:42] LABS: Bacteria Urine None Seen (None Seen); Hyaline Casts Urine 0-2 /LPF (0-2); RBC Urine 0-2 /HPF (0-2); Squamous Epithelial Cell Urine 0-2 /HPF (0-2); WBC Urine 0-5 /HPF (0-5)
[2022-09-27 19:49] LABS: Alanine Aminotransferase 22 U/L (0-31); Albumin Level 4.2 g/dL (3.5-5.0); Alkaline Phosphatase 78 U/L (39-117); Anion Gap 14 (12-20); Aspartate Amino Transferase 15 U/L (5-31); Bilirubin Total 0.2 mg/dL (0.0-1.0); Blood Urea Nitrogen 7 mg/dL (9-16); Calcium 9.7 mg/dL (8.4-10.2); Carbon Dioxide 25 mmol/L (22-29); Chloride 102 mmol/L (96-108); Creatinine Clr Calc Pharmacy 103.3; Estimated Glomerular Filt Rate > 60; Glucose Random 259 mg/dL (60-115); Magnesium 1.7 mg/dL (1.6-2.6); Potassium 4.3 mmol/L (3.3-5.1); Sodium 137 mmol/L (135-145)
[2022-09-27 20:10] LABS: Influenza A PCR NEGATIVE (Negative); Influenza B PCR NEGATIVE (Negative); Resp Syncy Virus RNA Qual PCR NEGATIVE (Negative); SARS COV2 PCR INHOUSE NEGATIVE (Negative)
[2022-09-27 20:19] LABS: Troponin-I High Sensitivity < 3.5 ng/L (<3.5-17.0)
== END 2022-09-27 22:20 | disposition home or self-care (01) ==
PROVIDERS: Physician Assistant Medical; Emergency Provider Emergency Medicine Emergency Medical Services; PCP Hospitalist
DX: F41.9 Anxiety disorder, unspecified (principal); Z72.89 Other problems related to lifestyle; Z63.4 Disappearance and death of family member; I10 Essential (primary) hypertension; E11.9 Type 2 diabetes mellitus without complications; Z79.4 Long term (current) use of insulin; Z79.899 Other long term (current) drug therapy; Z20.828 Contact with and (suspected) exposure to other viral communicable diseases
CPT/HCPCS: 0241U; 80053; 81001; 82947; 83735; 84484; 85025; 93005; 99283

== ENCOUNTER 2023-04-27 19:39 | Emergency (ER) | payer OTHER, SELFPAY ==
--- NOTE | ~2023-04-27 | CT_ITS ---
EXAMINATION: CT ABDOMEN AND PELVIS WITH CONTRAST CLINICAL INFORMATION: Epigastric pain COMPARISON: None available. TECHNIQUE: Multidetector volumetric images were obtained from the superior aspect of the liver through the pubic symphysis following administration 85 mL of Omnipaque 350 intravenous contrast. Sagittal and coronal reformatted images were obtained on the technologist's workstation. Oral contrast: No This CT examination was performed using dose optimization techniques as appropriate, variously including the following: *Automated exposure control *Adjustment of mA and/or kV according to patient size (this includes techniques or standardized protocols for targeted exams where dose is matched to indication/reason for exam; i.e. extremities or head) *Use of iterative reconstruction technique DLP: 753 mGy-cm FINDINGS: LUNG BASES: There is a pleural-based 5 mm nodule present in the left lower lobe (4:49. No suspicious lung mass or pleural effusion is seen. LIVER, GALLBLADDER, AND BILIARY TREE: The liver is enlarged measuring almost 20 cm in greatest length with decreased attenuation consistent with hepatic steatosis. No focal hepatic lesion or biliary ductal dilatation is present. The gallbladder is contains layering calcified small stones but otherwise is unremarkable with no evidence of pericholecystic inflammatory changes. PANCREAS: Unremarkable. SPLEEN: Unremarkable. ADRENAL GLANDS: Unremarkable. KIDNEYS AND URETERS: The kidneys are normal in size, shape, and attenuation. No hydronephrosis, hydroureter, or calculi seen. No perinephric stranding. BLADDER: Unremarkable. GASTROINTESTINAL TRACT: The small and large bowel are unremarkable. The appendix is unremarkable. ABDOMINAL WALL: No significant hernia is appreciated. LYMPH NODES: No retroperitoneal lymphadenopathy. VASCULAR: Unremarkable. PELVIC VISCERA: The uterus and adnexa are unremarkable. Nabothian cysts are present in the cervix. OSSEOUS STRUCTURES: Unremarkable. CT/CT abdomen pelvis w IV con IMPRESSION: 1. A cause for the patient's epigastric pain has not been found. 2. Incidental note made of an enlarged fatty liver and cholelithiasis without cholecystitis. Fleischner guidelines were followed.
[2023-04-27 20:27] VITALS: BP 136/82; PULSE 76; RESP 20; TEMP 36.7; O2SAT 99; BMI 36.8
--- NOTE | 2023-04-27 20:29 | ED_ITS ---
HPI - Abdominal Pain General Chief Complaint: Abdominal Pain Stated Complaint: abd pain Time Seen by Provider: 04/27/23 21:02 Source: patient and family Mode of arrival: ambulatory History of Present Illness HPI narrative: Patient comes to the emergency room complaining of epigastric abdominal pain. patient states that the present started approximately a week ago, for the last 3 days she has been having lightheadedness and epigastric pain with food intake. Today, at 17:00 patient started having constant epigastric pain, nonradiating. Patient states it is a very severe pain, sharp. Patient complaining of nausea, no vomiting, no diarrhea. Patient states that last week she was seen by her primary care physician for constipation. Patient's son is at bedside, patient does not speak Swedish, an principal developer was offered, declined, patient would like her son to translate. Related Data Home Medications Medication Instructions Recorded Confirmed albuterol sulfate 90 mcg/actuation 2 puff inhalation Q4-5H PRN 07/04/20 01/01/22 aerosol inhaler amitriptyline 25 mg tablet 25 mg PO DAILY 07/04/20 01/01/22 fluoxetine 20 mg capsule 20 mg PO DAILY 07/04/20 01/01/22 fluticasone propionate 50 1 spray intranasal DAILY 07/04/20 01/01/22 mcg/actuation nasal spray,suspension (Flonase Allergy Relief) hydroxyzine HCl 25 mg tablet 25 mg PO BEDTIME 07/04/20 01/01/22 lisinopril 10 mg tablet 10 mg PO DAILY 07/04/20 01/01/22 lorazepam 0.5 mg tablet 0.5 mg PO DAILY PRN 07/04/20 01/01/22 quetiapine 25 mg tablet (Seroquel) 25 mg PO BEDTIME 07/04/20 05/02/21 zolpidem 10 mg tablet (Ambien) 10 mg PO BEDTIME PRN 07/04/20 01/01/22 blood sugar diagnostic #10 ea 07/15/20 01/01/22 loratadine 10 mg tablet (Allergy 10 mg PO DAILY PRN 12/16/20 01/01/22 Relief (loratadine)) meloxicam 7.5 mg tablet 7.5 mg PO DAILY 05/02/21 01/01/22 Previous Rx's Medication Instructions Recorded blood sugar diagnostic (FreeStyle 1 strip miscellaneous .qd 90 days 06/26/21 Lite Strips) #100 strips glucose 4 gram chewable tablet 12 g PO Q15M PRN hypoglycemia 90 06/26/21 (Dex4 Glucose) days #60 tabs pen needle, diabetic 32 gauge x #150 ea 06/26/21 cholecalciferol (vitamin D3) 50 50 mcg PO DAILY #30 caps 10/09/21 mcg (2,000 unit) capsule gabapentin 600 mg tablet 600 mg PO TID 30 days #90 tabs 01/01/22 pen needle, diabetic 32 gauge x #125 ea 01/01/22 (BD Ultra-Fine Che Pen Needle) insulin glargine 100 unit/mL (3 32 unit (0.32 mL) subcut QAM 90 02/12/22 mL) subcutaneous pen (Lantus days #28.8 mL Solostar U-100 Insulin) triamcinolone acetonide 0.5 % 1 appl topical BID apply to rash 03/20/22 topical cream on chest #15 grams flash glucose sensor (FreeStyle 1 ea topical Q2W 90 days #6 ea 04/28/22 Sal 14 Day Sensor kit) insulin lispro 100 unit/mL See Rx Instructions subcut TID #15 07/02/22 subcutaneous pen mL metformin 1,000 mg tablet 1,000 mg PO BID 30 days #60 tabs 08/25/22 omeprazole 40 mg capsule,delayed 40 mg PO DAILY #20 caps 04/27/23 release tramadol 50 mg tablet 50 mg PO BID PRN pain #5 tabs 04/27/23 Allergies Allergy/AdvReac Type Severity Reaction Status Date / Time No Known Allergies Allergy Verified 01/01/22 13:16 Review of Systems Review of Systems Constitutional : No Weight loss, No Fever, No Chills, No Night Sweats, No Fatigue, No Malaise ENT/Mouth : No Hearing loss, No Ear Pain, No Nasal Congestion, No Sinus Pain, No Hoarseness, No sore throat, No Rhinorrhea, No Swallowing Difficulty Eyes: No Eye Pain, No Swelling, No Redness, No Foreign Body, No Discharge, No Vision Changes Cardiovascular : No Chest Pain, No SOB, No Dyspnea on Exertion, No Orthopnea, No Edema, No Palpitations Respiratory : No Cough, No Sputum, No Wheezing, No Smoke Exposure, No Dyspnea Gastrointestinal : complaining of nausea, no vomiting, or diarrhea, had constipation last week, complaining of severe epigastric pain almost 5 hours Genitourinary : no irregular bleeding, No Dysuria, No Urinary Frequency, No Hematuria, No Urinary Incontinence, No Urgency, No Flank Pain, No Urinary Flow Changes, No Hesitancy Musculoskeletal : No joint pain, No Myalgias, No Joint Swelling Skin : No Skin Lesions, No rash Neuro : No Weakness, No Numbness, No Paresthesias, No Loss of Consciousness, No Dizziness, No Headache Psych : No Anxiety/Panic, No Depression, No SI/HI/AH/VH, No Social Issues, Heme/Lymph: No Bruising, No Bleeding,No Lymphadenopathy Endocrine : No Polyuria, No Polydipsia, No Temperature Intolerance PMFSH Past Medical History Medical History Acid indigestion Anxiety Asthma Back pain Depression Essential hypertension Leukocytosis Migraine Palpitations Type 2 diabetes mellitus with hyperglycemia, with long-term current use of insulin Type 2 diabetes mellitus with polyneuropathy Vitamin D insufficiency Surgical History Hx of section Hx of mammogram Family History Family History Father Hypertension Diabetes Heart disease Mother Diabetes Heart disease Hypertension Social History Social History Household Members: Family and Children Alcohol intake: current Alcohol intake frequency: does not drink Patient Tobacco Use Status: Never used Tobacco Advance Directives: No Advance Directives Information Provided: No Physical Exam ED Vital Signs: Vital Signs - 24 hr 04/27/23 20:27 04/27/23 22:09 Temperature 98.1 F Pulse Rate 76 69 Respiratory Rate 20 17 Blood Pressure 136/82 117/63 Pulse Oximetry 99 97 Oxygen Delivery Method Room Air Room Air BMI result Body Mass Index 36.8 Const Other: Appearance: Alert. Oriented X3. patient looks uncomfortable Eyes: Pupils equal, round and reactive to light. ENT: Pharynx normal. Neck: Normal inspection. Neck supple. No lymph nodes noted. No crepitus CVS: Normal heart rate and rhythm. Pulses normal. Normal S1 and S2 Respiratory: No respiratory distress. Breath sounds normal. No Wheezing. No rales Abdomen: Soft , nondistended, tender to palpation in epigastric area, no rebound or guarding Skin: Skin warm and dry. Normal skin color. Normal skin turgor. Extremities: No lower extremity edema. No Lacerations. No Rash Neuro: Oriented X 3. No motor deficit. No sensory deficit. Moving all extre mities. No slurred speech. CN 2 through 12 grossly intact Psych: calm, cooperative Course Course Course Narrative: RME - 48 yo female with history of DM2 w/ polyneuropathy, HTN who presents to the ER evaluation of 07/06 epigastric abdominal pain, nausea, dizziness that started at 5pm today. Sent in from Urgent Care. No vomiting or diarrhea. Seen by PCP last week for GERD, constipation and is now having normal BMs. Pain is now radiating to her back. VSS in triage, appears uncomfortable and is reporting chest pain. Plan: labs, EKG, to be brought back to treatment room Medical Decision Making Medical Decision Making [facility] Narrative: - initially patient complaining of significant pain in the abdomen, admission was considered - my interpretation of labs, white blood cell count 19.0. However, patient has chronic leukocytosis since 2019. Chemistry within normal limits . Lipase normal - my interpretation of CT scan findings, no obstruction - patient feeling much better. I discussed with the patient that likely she has peptic ulcer disease versus gastritis - patient instructed to follow-up with gastroenterology, patient may need an endoscopy Differential Diagnosis Differential Diagnoses: The differential diagnosis associated with the presentation includes ( peptic ulcer disease, gastritis, perforated ulcer) Admission/Observation Consideration of admission/observation: Escalation of care including admission/observation considered Lab Data [facility] Lab Attestation statement: I reviewed the patient's lab results. 04/27/23 20:50 04/27/23 20:50 Labs: Lab Results 04/27/23 04/27/23 04/27/23 Range/Units 20:48 20:50 20:50 WBC 19.0 H (4.8-10.8) X10*3/uL RBC 4.64 (4.20-5.50) X10*6/uL Hgb 13.0 (12.0-16.0) g/dl Hct 40.0 (37.0-47.0) % MCV 86.2 (80.0-98.0) fL MCH 28.0 (27.0-33.0) pg MCHC 32.5 (31.0-35.0) g/dl RDW 13.5 (11.0-16.0) % Plt Count 396 (160-400) X10*3/uL MPV 10.9 (9.4-12.3) fL Immature Gran % (Auto) 0.6 H (0.0-0.4) % Neut % (Auto) 77.2 H (45-73) % Lymph % (Auto) 16.0 L (20-40) % [place] % (Auto) 5.6 (2-11) % Eos % (Auto) 0.2 (0-4) % Baso % (Auto) 0.4 (0-2) % Lymph # (Auto) 3.0 (1.2-4.9) X10*3/uL [place] # (Auto) 1.1 (0.1-1.2) X10*3/uL Eos # (Auto) 0.0 (0.0-0.4) X10*3/uL Baso # (Auto) 0.1 (0.0-0.2) X10*3/uL Abs Immat Gran (auto) 0.11 H (0.00-0.03) X10*3/uL Absolute Neuts (auto) 14.7 H (2.0-8.3) x10*3/uL Absolute Nucleated RBC 0.000 (0.0-0.012) X10*3/uL Nucleated RBC % (auto) 0.0 (0.0-0.2) /100WBC Sodium 141 (135-145) mmol/L Potassium 3.6 (3.3-5.1) mmol/L Chloride 103 (96-108) mmol/L Carbon Dioxide 24 (22-29) mmol/L Anion Gap 18 (12-20) BUN 8 L (9-16) mg/dL Creatinine 0.68 (0.5-1.4) mg/dL Estim Creat Clear Calc 107.0 Estimated GFR > 60 Random Glucose 173 H (60-115) mg/dL Calcium 9.8 (8.4-10.2) mg/dL Magnesium 1.9 (1.6-2.6) mg/dL Total Bilirubin 0.4 (0.0-1.0) mg/dL Direct Bilirubin 0.3 (0.0-0.5) mg/dL AST 45 H (5-31) U/L ALT 28 (0-31) U/L Alkaline Phosphatase 70 (39-117) U/L Troponin I High Sens (<3.5-17.0) ng/L Total Protein 8.1 H (6.5-8.0) g/dL Albumin 4.1 (3.5-5.0) g/dL Lipase 25 (8-78) U/L Beta HCG, Quant < 2 mIU/mL Urine Color Yellow Urine Appearance Clear Urine pH 7.5 (5.0-9.0) Ur Specific [place] 1.020 (1.005-1.025) Urine Protein Negative (Neg-Trace) mg/dL Urine Glucose (UA) Negative (Negative) mg/dL Urine Ketones Negative (Negative) mg/dL Urine Blood Negative (Negative) Urine Nitrite Negative (Negative) Ur Leukocyte Esterase Negative (Negative) 04/27/23 Range/Units 20:50 WBC (4.8-10.8) X10*3/uL RBC (4.20-5.50) X10*6/uL Hgb (12.0-16.0) g/dl Hct (37.0-47.0) % MCV (80.0-98.0) fL MCH (27.0-33.0) pg MCHC (31.0-35.0) g/dl RDW (11.0-16.0) % Plt Count (160-400) X10*3/uL MPV (9.4-12.3) fL Immature Gran % (Auto) (0.0-0.4) % Neut % (Auto) (45-73) % Lymph % (Auto) (20-40) % [place] % (Auto) (2-11) % Eos % (Auto) (0-4) % Baso % (Auto) (0-2) % Lymph # (Auto) (1.2-4.9) X10*3/uL [place] # (Auto) (0.1-1.2) X10*3/uL Eos # (Auto) (0.0-0.4) X10*3/uL Baso # (Auto) (0.0-0.2) X10*3/uL Abs Immat Gran (auto) (0.00-0.03) X10*3/uL Absolute Neuts (auto) (2.0-8.3) x10*3/uL Absolute Nucleated RBC (0.0-0.012) X10*3/uL Nucleated RBC % (auto) (0.0-0.2) /100WBC Sodium (135-145) mmol/L Potassium (3.3-5.1) mmol/L Chloride (96-108) mmol/L Carbon Dioxide (22-29) mmol/L Anion Gap (12-20) BUN (9-16) mg/dL Creatinine (0.5-1.4) mg/dL Estim Creat Clear Calc Estimated GFR Random Glucose (60-115) mg/dL Calcium (8.4-10.2) mg/dL Magnesium (1.6-2.6) mg/dL Total Bilirubin (0.0-1.0) mg/dL Direct Bilirubin (0.0-0.5) mg/dL AST (5-31) U/L ALT (0-31) U/L Alkaline Phosphatase (39-117) U/L Troponin I High Sens < 2.7 (<3.5-17.0) ng/L Total Protein (6.5-8.0) g/dL Albumin (3.5-5.0) g/dL Lipase (8-78) U/L Beta HCG, Quant mIU/mL Urine Color Urine Appearance Urine pH (5.0-9.0) Ur Specific [place] (1.005-1.025) Urine Protein (Neg-Trace) mg/dL Urine Glucose (UA) (Negative) mg/dL Urine Ketones (Negative) mg/dL Urine Blood (Negative) Urine Nitrite (Negative) Ur Leukocyte Esterase (Negative) Independent Interpretation I performed an independent interpretation of an: EKG ( interpretation of EKG: Normal sinus rhythm, rate 79, no ST segment depression or elevation, no T-wave inversion, QTC 444) and CT Scan Radiology Impression Discussion of test interpretation with radiology: I have reviewed the radiologist's reading. Radiologist Impression: FINDINGS: LUNG BASES: There is a pleural-based 5 mm nodule present in the left lower lobe (4:49. No suspicious lung mass or pleural effusion is seen. LIVER, GALLBLADDER, AND BILIARY TREE: The liver is enlarged measuring almost 20 cm in greatest length with decreased attenuation consistent with hepatic steatosis.? No focal hepatic lesion or biliary ductal dilatation is present. The gallbladder is contains layering calcified small stones but otherwise is unremarkable with no evidence of pericholecystic inflammatory changes.? PANCREAS: Unremarkable.? SPLEEN: Unremarkable.? ADRENAL GLANDS: Unremarkable.? KIDNEYS AND URETERS: The kidneys are normal in size, shape, and attenuation. No hydronephrosis, hydroureter, or calculi seen. No perinephric stranding. ? BLADDER: Unremarkable.? GASTROINTESTINAL TRACT: The small and large bowel are unremarkable. The appendix is unremarkable.? ABDOMINAL WALL: No significant hernia is appreciated.? LYMPH NODES: No retroperitoneal lymphadenopathy. VASCULAR: Unremarkable. PELVIC VISCERA: The uterus and adnexa are unremarkable. Nabothian cysts are present in the cervix. OSSEOUS STRUCTURES: Unremarkable.? CT/CT abdomen pelvis w IV con IMPRESSION: 1.? A cause for the patient's epigastric pain has not been found. 2.? Incidental note made of an enlarged fatty liver and cholelithiasis without cholecystitis. ? Fleischner guidelines were followed. Independent Historian Clinical information obtained from an independent historian. History obtained from or confirmed by: Other ( son) Medications Administered Discontinued Medications Generic Name Dose Route Start Last Admin Trade Name Freq PRN Reason Stop Dose Admin Iohexol 100 ml 04/27/23 21:46 04/27/23 21:46 Iohexol 350 Mg/Ml 100 Ml Infus..Btl IV 04/27/23 21:47 85 ml ONCE ONE Administration Morphine Sulfate 4 mg 04/27/23 21:13 04/27/23 21:34 Morphine Sulfate 4 Mg/Ml Cartridge IVPUSH 04/27/23 21:14 4 mg ONCE ONE Administration Protocol Ondansetron HCl 4 mg 04/27/23 21:13 04/27/23 21:38 Ondansetron Hcl 4 Mg/2 Ml Vial IVPUSH 04/27/23 21:14 4 mg ONCE ONE Administration Discharge Plan Discharge Clinical Impression: Peptic ulcer disease Patient Disposition: Home, Self-Care Instructions: Peptic Ulcer (ED), Diet for Stomach Ulcers and Gastritis (ED) Additional Instructions: Please follow-up with your primary care physician tomorrow. If you have any worsening or new symptoms, please return to the emergency room or call 911 Prescriptions: New omeprazole 40 mg capsule,delayed release(DR/EC) 40 mg PO DAILY Qty: 20 0RF tramadol 50 mg tablet 50 mg PO BID PRN (Reason: pain) Qty: 5 0RF No Action FreeStyle Lite Strips Strip 1 strip miscellaneous .qd 90 Days Qty: 100 10RF glucose [Dex4 Glucose] 4 gram tablet,chewable 12 g PO Q15M PRN (Reason: hypoglycemia) 90 Days Qty: 60 3RF Rx Instructions: until symptoms of low blood sugar are controlled (DME) pen needle, diabetic 32 gauge x 5/32 needle See Rx Instructions subcut .MEDSUPPLY Qty: 150 11RF Rx Instructions: Once a day cholecalciferol (vitamin D3) 50 mcg (2,000 unit) capsule 50 mcg PO DAILY Qty: 30 11RF Lantus Solostar U-100 Insulin 100 unit/mL (3 mL) insulin pen 32 unit subcut QAM 90 Days Qty: 28.8 1RF FreeStyle Sal 14 Day Sensor Kit 1 ea topical Q2W 90 Days Qty: 6 11RF insulin lispro 100 unit/mL insulin pen See Rx Instructions subcut TID Qty: 15 5RF Rx Instructions: 4 units before breakfast and dinner and 6 units before lunch subcut 3 times a day; 4 units before breakfast and dinner and 6 units before lunch subcut 3 times a day; subcutaneously 3 times a day; metformin 1,000 mg tablet 1,000 mg PO BID 30 Days Qty: 60 0RF Rx Instructions: FUTURE REFILLS FROM PCP. triamcinolone acetonide 0.5 % cream 1 appl topical BID Qty: 15 0RF (DME) FreeStyle Precision Kurnal Strips Strip See Rx Instructions .ROUTE DAILY Qty: 10 Rx Instructions: As directed meloxicam 7.5 mg tablet 7.5 mg PO DAILY lorazepam 0.5 mg tablet 0.5 mg PO DAILY PRN hydroxyzine HCl 25 mg tablet 25 mg PO BEDTIME zolpidem [Ambien] 10 mg tablet 10 mg PO BEDTIME PRN fluoxetine 20 mg capsule 20 mg PO DAILY quetiapine [Seroquel] 25 mg tablet 25 mg PO BEDTIME fluticasone propionate [Flonase Allergy Relief] 50 mcg/actuation spray,suspension 1 spray intranasal DAILY Rx Instructions: administer into each nostril amitriptyline 25 mg tablet 25 mg PO DAILY lisinopril 10 mg tablet 10 mg PO DAILY albuterol sulfate 90 mcg/actuation HFA aerosol inhaler 2 puff inhalation Q4-5H PRN loratadine [Allergy Relief (loratadine)] 10 mg tablet 10 mg PO DAILY PRN (DME) pen needle, diabetic [BD Ultra-Fine Che Pen Needle] 32 gauge x 5/32 needle See Rx Instructions .ROUTE .MEDSUPPLY Qty: 125 6RF Rx Instructions: As directed four times a day gabapentin 600 mg tablet 600 mg PO TID 30 Days Qty: 90 6RF
--- NOTE | 2023-04-27 20:31 | ECG_ITS ---
Test Reason : cp Blood Pressure : / mmHG Vent. Rate : 079 BPM Atrial Rate : 079 BPM P-R Int : 184 ms QRS Dur : 080 ms QT Int : 388 ms P-R-T Axes : 028 011 019 degrees QTc Int : 444 ms Artifact in tracing Normal sinus rhythm Cannot rule out Anterior infarct (cited on or before 26-SEP-2016) Abnormal ECG When compared with ECG of 27-SEP-2022 19:13, Nonspecific T wave abnormality now evident in Anterior leads Referred By: Shanell Farias Electronically Signed By:DELISA POLLARD
--- NOTE | 2023-04-27 20:50 | MHC.EDTECH ---
This tech brought pt into triage area,EKG taken.Labs and Urine collected and sent to lab. Patient then brought to room 13 in the ED.
[2023-04-27 20:56] LABS: MANUAL DIFF FLAG NO
[2023-04-27 21:01] LABS: Basophils Absolute Auto 0.1 X10*3/uL (0.0-0.2); Basophils Percent Auto 0.4 % (0-2); Eosinophils Percent Auto 0.2 % (0-4); Imm Gran Abs Auto 0.11 X10*3/uL (0.00-0.03); Imm Gran Pct Auto 0.6 % (0.0-0.4); Mean Corpuscular HGB Conc 32.5 g/dl (31.0-35.0); Mean Corpuscular Volume 86.2 fL (80.0-98.0); Mean Platelet Volume 10.9 fL (9.4-12.3); Monocytes Absolute Auto 1.1 X10*3/uL (0.1-1.2); Monocytes Percent Auto 5.6 % (2-11); Neutrophils Absolute Auto 14.7 x10*3/uL (2.0-8.3); Neutrophils Percent Auto 77.2 % (45-73); Platelet Count 396 X10*3/uL (160-400); Red Blood Count 4.64 X10*6/uL (4.20-5.50); Red Cell Distribution Width 13.5 % (11.0-16.0)
[2023-04-27 21:12] LABS: Alanine Aminotransferase 28 U/L (0-31); Albumin Level 4.1 g/dL (3.5-5.0); Alkaline Phosphatase 70 U/L (39-117); Anion Gap 18 (12-20); Aspartate Amino Transferase 45 U/L (5-31); Bilirubin Direct 0.3 mg/dL (0.0-0.5); Bilirubin Total 0.4 mg/dL (0.0-1.0); Blood Urea Nitrogen 8 mg/dL (9-16); Calcium 9.8 mg/dL (8.4-10.2); Carbon Dioxide 24 mmol/L (22-29); Chloride 103 mmol/L (96-108); Estimated Glomerular Filt Rate > 60; Glucose Random 173 mg/dL (60-115); Lipase 25 U/L (8-78); Magnesium 1.9 mg/dL (1.6-2.6); Potassium 3.6 mmol/L (3.3-5.1); Sodium 141 mmol/L (135-145); Total Protein 8.1 g/dL (6.5-8.0)
[2023-04-27 21:25] LABS: Troponin-I High Sensitivity < 2.7 ng/L (<3.5-17.0)
[2023-04-27] MEDS: Morphine Sulfate 4 MG/ML CARTRIDGE IVPUSH (21:34)
[2023-04-27] MEDS: ondansetron HCL 4 MG/2 ML VIAL IVPUSH (21:38)
[2023-04-27 21:46] LABS: HCG Quantitative < 2 mIU/mL
[2023-04-27] MEDS: iohexoL 350 MG/ML 100 ML INFUS..BTL IV (21:46)
[2023-04-27 22:09] VITALS: BP 117/63; PULSE 69; RESP 17; O2SAT 97
[2023-04-27 23:08] LABS: Color Urine Yellow; Glucose Urine UA Negative (Negative); Leukocyte Esterase Urine Negative (Negative); Nitrite Urine Negative (Negative); PH 7.5 (5.0-9.0); Urine Blood Negative (Negative); Urine Ketones Negative (Negative); Urine Protein Negative (Neg-Trace)
[2023-04-27 23:11] LABS: Appearance Urine Clear
[2023-04-27 23:54] VITALS: BP 122/62; PULSE 66; RESP 18; TEMP 36.6; O2SAT 95
[2023-04-28] MEDS: Famotidine/PF 20 MG/2 ML VIAL IVPUSH (00:23)
[2023-04-28 00:24] VITALS: RESP 18
[2023-04-28] MEDS: Morphine Sulfate 2 MG/ML CARTRIDGE IM (00:24)
[2023-04-28] MEDS: Magnesium Hydrox/Alum Hydrox 30 ML ORAL.SUSP PO (00:24)
== END 2023-04-28 00:38 | disposition home or self-care (01) ==
PROVIDERS: Physician Assistant; Emergency Provider Emergency Medicine; PCP Hospitalist
DX: K27.9 Peptic ulcer, site unspecified, unspecified as acute or chronic, without hemorrhage or perforation (principal); E11.9 Type 2 diabetes mellitus without complications; I10 Essential (primary) hypertension; Z79.899 Other long term (current) drug therapy; Z79.4 Long term (current) use of insulin
CPT/HCPCS: 36415; 74177; 80048; 80076; 81003; 83690; 83735; 84484; 84702; 85025; 93005; 96372; 96374; 96375; 99284; J2270; J2405; Q9967

== ENCOUNTER → 2023-04-27 20:31 | Outpatient (BNV) | payer OTHER, SELFPAY | PROVIDERS: Emergency Provider Emergency Medicine; PCP Hospitalist; Visit Provider Internal Medicine | DX: R07.9 Chest pain, unspecified (principal); R94.31 Abnormal electrocardiogram [ECG] [EKG] | CPT/HCPCS: 93010 ==

== ENCOUNTER 2023-11-22 10:14 | Outpatient (REF) | payer OTHER, SELFPAY ==
[2023-11-22 13:01] LABS: Alanine Aminotransferase 23 U/L (0-31); Alkaline Phosphatase 66 U/L (39-117); Aspartate Amino Transferase 17 U/L (5-31); Bilirubin Direct < 0.2 mg/dL (0.0-0.5); Bilirubin Total 0.2 mg/dL (0.0-1.0); Lipase 28 U/L (8-78); Total Protein 7.8 g/dL (6.5-8.0)
[2023-11-22 13:17] LABS: TSH reflex Free T4 0.86 uIU/mL (0.32-4.0)
[2023-11-22 13:25] LABS: Folate 9.4 ng/mL (> or = 4.0); Vitamin B12 399 pg/mL (200-900)
[2023-11-24 07:43] LABS: Transglutaminase Ab IgG <1.0 U/mL; Transglutaminase IgA <1.0 U/mL
[2023-11-26 17:58] LABS: Vitamin D 25-OH, D2 <4 ng/mL; Vitamin D 25-OH, D3 37 ng/mL; Vitamin D 25-OH, Total 37 ng/mL (30-100)
== END 2023-11-22 10:15 | disposition home or self-care (01) ==
LOC: HO.LAB 10:14
PROVIDERS: PCP Hospitalist; Visit Provider Nurse Practitioner Family
DX: R10.13 Epigastric pain (principal); R14.0 Abdominal distension (gaseous); K59.01 Slow transit constipation; E55.9 Vitamin D deficiency, unspecified; R74.01 Elevation of levels of liver transaminase levels; R19.7 Diarrhea, unspecified
CPT/HCPCS: 36415; 80076; 82306; 82607; 82746; 83690; 84443; 86364; 99202

== ENCOUNTER 2023-11-22 10:14 | Outpatient (AMB) | payer OTHER, SELFPAY ==
--- NOTE | 2023-11-22 10:18 | MHC.OFFVIS ---
Intake Vital Signs 11/22/23 10:19 Height 5 ft 2.99 in Weight 201 lb 8.04 oz BMI 35.7 BP 116/75 Blood Pressure Location Rt brachial Position Sitting Pulse 70 Intake Visit Reasons: Abdominal pain Intake Note: Patient presents to in office visit today as a new patient for abdominal pain. CC: Patient's son translating for her. Pt states that her pain starts from her epigastric region with radiation to bilateral shoulders and upper back. She also c/o abdominal bloating, constipation, and feeling like fainting when finally having a BM. Per patient when she is emotionally stressed or having issues her symptoms flare up. She was given Tramadol 50 mg PRN but she states she gets side effects from Tramadol. She is also taking Omeprazole 40 mg at bedtime. Onset of symptoms around last March. She lost her in 05/2022, per her son this might've triggered some of her symptoms. She also reports dark stools and nausea occasionally. Body And Fender Worker Required: Yes Body And Fender Worker Language: Yi Allergies No Known Allergies Allergy (Verified 11/22/23 10:30) HPI Abdominal pain HPI Details 48-year-old female with past medical history of diabetes, asthma, osteoarthritis, hypertension, insomnia, pseudobulbar disorder is here today for initial consultation. Patient reports that she has started with symptoms of epigastric discomfort, dyspepsia postprandially. Depending on what she eats. If anything spicy or fried patient will have severe epigastric discomfort. Patient reports nausea pain radiates to upper back and shoulders. Patient denies any chest pain, presyncope or syncope. Patient lost her in 2021 since then her symptoms are getting worse. Patient states that she gets anxious many times and feels like that does not help. Patient reports that she is unable to move her bowels. When patient has a urge to go to the bathroom she has abdominal pain and cramping. Feels like something is twisting insight feeling like she is going to pass out. Patient was seen in the ER last April in [facility] and then again at [facility]. Patient was given tramadol for pain and omeprazole. Her PCP is refilling this for her for pain. Reports that when she takes tramadol her pain is relieved. Omeprazole patient reports that she takes, however does not feel like it always helps. Patient denies any nausea or vomiting at this time. Not on any particular diet. Aerobic interpreter for the deaf via iPad used during the appointment. Patient's son stepped out of the room for privacy. Patient reports occasional black stool, taking iron daily. Patient reports that she does not drink enough fluids. Patient denies any hematochezia, no unintentional weight loss or ribbon like stools. Patient reports dyspepsia without dysphagia or odynophagia. No fever or chills. Patient admits that symptoms worse with different food. PFSH Medical History Acid indigestion Anxiety Asthma Back pain Depression Essential hypertension Leukocytosis Migraine Palpitations Type 2 diabetes mellitus with hyperglycemia, with long-term current use of insulin Type 2 diabetes mellitus with polyneuropathy Vitamin D insufficiency Surgical History Hx of section Hx of mammogram Family History Father Hypertension Diabetes Heart disease Mother Diabetes Heart disease Hypertension Social History Household Members: Family and Children Alcohol intake: current Alcohol intake frequency: does not drink Patient Tobacco Use Status: Never used Tobacco Review of Systems Const Denies weight gain and Denies weight loss ENT Reports no additional complaints, Denies dysphagia and Denies odynophagia Card Reports no additional complaints Resp Reports no additional complaints GI Reports abdominal pain, Denies belching, Denies melena, Reports bloating, Denies change in bowel habits, Reports constipation, Denies dysphagia, Denies excessive flatus, Reports dyspepsia, Reports heartburn, Denies diarrhea, Denies loose stools, Denies nausea, Denies odynophagia and Denies vomiting Reports no additional complaints Musc Reports no additional complaints Neuro Reports no additional complaints Psych Reports no additional complaints Endo Reports no additional complaints Physical Exam Vital Signs: Last Vital Signs Pulse 70 11/22/23 10:19 BP 116/75 11/22/23 10:19 BMI result Body Mass Index 35.7 Const General: healthy appearing, no acute distress and well developed Nutritional Appearance: obese Orientation/consciousness: patient oriented x3 Resp Effort & Inspection: normal respiratory effort, able to speak in complete sentences, no tracheal deviation and symmetric chest movement Auscultation: clear to auscultation bilaterally Cardio Rate: regular rate GI Inspection: Yes normal to inspection, No distended and Yes obesity Palpation (GI): Soft to palpation, not firm, nontender and No hepatosplenomegaly present Auscultation: normal bowel sounds General: Yes no CVA tenderness Back/Spine/Pelvis Back: no CVA tenderness Skin General skin exam: elasticity normal, turgor normal and dry skin Neuro General: patient oriented x3 Psych Appearance: grossly normal Mental Status: mental status grossly normal Assessment & Plan Assessment & Plan (1) Postprandial epigastric pain: Code(s): R10.13 - Epigastric pain (2) Postprandial abdominal bloating: Code(s): R14.0 - Abdominal distension (gaseous) (3) Constipation: Code(s): K59.00 - Constipation, unspecified Qualifiers: Constipation type: slow transit constipation Qualified Code(s): K59.01 - Slow transit constipation (4) Dyspepsia: Code(s): R10.13 - Epigastric pain Plan Patient reports postprandial abdominal pain, will check lipase r/o pancreatitis, transglutaminase to rule out celiac component. Will check thyroid study, liver panel as well as vitamin B12, folate and vitamin-D level. Patient can stop taking omeprazole. Start taking Nexium in the morning half an hour before breakfast. Patient can take 2 Colace every evening to help her move her bowels better. Discussed with patient possibly going for upper endoscopy. Patient reports that she is too anxious to go for this type of a procedure. Reports that she will think about it until next appointment. Discussed with patient avoiding dietary triggers and late night snacking. Staying upright for minimum 3 hours after meals discussed with patient. I will see patient in 3 weeks, sooner on as needed basis. Patient is agreeable to this plan and verbalizes understanding of instructions. She was given the opportunity to ask questions and all questions answered. Thank you for allowing me to participate in her care Orders: Orders Transglutaminase IgA Today R10.9 - Unspecified abdominal pain Lipase Today R10.9 - Unspecified abdominal pain Vitamin B12 and Folate Today R19.7 - Diarrhea, unspecified Transglutaminase Ab IgG Today R10.9 - Unspecified abdominal pain TSH reflex Free T4 Today K59.00 - Constipation, unspecified Liver Panel Today R74.01 - Elevation of levels of liver transaminase levels Vitamin D 25-OH (D2 and D3) Today E55.9 - Vitamin D deficiency, unspecified Medications: New docusate sodium 200 mg (2 x 100 mg) PO BEDTIME 180 caps 3RF K59.00 - Constipation, unspecified esomeprazole magnesium (Nexium) 40 mg PO DAILY 30 caps 5RF K21.9 - Gastro-esophageal reflux disease without esophagitis Discontinued omeprazole Discontinued Reason: Doctor's Order 40 mg PO DAILY 20 caps 0RF Coding Level of Care Code New Pt Level 4 (90532) Diagnoses Postprandial epigastric pain R10.13 Postprandial abdominal bloating R14.0 Slow transit constipation K59.01 Constipation type: slow transit constipation Dyspepsia R10.13 Time Spent (min) 45 Comment 30 minutes spent with patient and additional 15 minutes spent reviewing her records
[2023-11-22 10:19] VITALS: BP 116/75; PULSE 70; BMI 35.7
== END 2023-11-22 11:00 | disposition home or self-care (01) ==
PROVIDERS: PCP Hospitalist; Visit Provider Nurse Practitioner Family
DX: R10.13 Epigastric pain (principal); R14.0 Abdominal distension (gaseous); K59.01 Slow transit constipation
CPT/HCPCS: 99204

== ENCOUNTER 2023-11-30 16:10 | Emergency (ER) | payer OTHER, SELFPAY ==
--- NOTE | ~2023-11-30 | XR_ITS ---
EXAMINATION: XR CHEST CLINICAL INFORMATION: Pain COMPARISON: Frontal view 03/20/22 TECHNIQUE: 2 views of the chest were obtained. FINDINGS: The mediastinum, oscar, vasculature, lungs and visualized pleural margins are within normal limits. Moderate relative elevation of the right hemidiaphragm. No suspicious focal bony lesion. No change in the appearance of the right hemidiaphragm XR/XR chest 2V IMPRESSION: No focal pneumonia or edema.
[2023-11-30 16:11] VITALS: BP 187/92; PULSE 90; RESP 18; TEMP 36.4; O2SAT 100; BMI 33.3
--- NOTE | 2023-11-30 16:12 | ECG_ITS ---
Test Reason : chest pain Blood Pressure : / mmHG Vent. Rate : 075 BPM Atrial Rate : 075 BPM P-R Int : 190 ms QRS Dur : 082 ms QT Int : 380 ms P-R-T Axes : 005 -02 014 degrees QTc Int : 424 ms Normal sinus rhythm Minimal voltage criteria for LVH, may be normal variant ( R in aVL ) Possible Anterior infarct (cited on or before 26-SEP-2016) Abnormal ECG When compared with ECG of 27-APR-2023 20:37, No significant change was found Referred By: Scot Chester Electronically Signed By:Dax Suarez
--- NOTE | 2023-11-30 16:24 | ED_ITS ---
HPI - General Adult General Chief complaint: Dyspnea Stated complaint: chest pain/sob Time Seen by Provider: 11/30/23 21:21 Source: patient and family Mode of arrival: ambulatory Limitations: no limitations History of Present Illness HPI narrative: Patient history of anxiety depression not taking any medication, hypertension, diabetes complaining of chest pain since 03:00 today with tightness feeling patient had similar feeling multiple times in the past when she gets anxiety was at [facility] months ago with whole workup was negative headache cardiac echo done which was also negative plan to have further evaluation by the senior accounting manager patient feels under increased stress pain is continuous since 03:00 EKG and high sensitive troponin done before my evaluation was normal. No leg pain no recent travel no history of PE or DVT patient is mongolian speaking son was translating Related Data Home Medications Medication Instructions Recorded Confirmed albuterol sulfate 90 mcg/actuation 2 puff inhalation Q4-5H PRN 07/04/20 01/01/22 aerosol inhaler amitriptyline 25 mg tablet 25 mg PO DAILY 07/04/20 01/01/22 fluticasone propionate 50 1 spray intranasal DAILY 07/04/20 01/01/22 mcg/actuation nasal spray,suspension (Flonase Allergy Relief) hydroxyzine HCl 25 mg tablet 25 mg PO BEDTIME 07/04/20 01/01/22 lisinopril 10 mg tablet 10 mg PO DAILY 07/04/20 01/01/22 lorazepam 0.5 mg tablet 0.5 mg PO DAILY PRN 07/04/20 01/01/22 quetiapine 25 mg tablet (Seroquel) 25 mg PO BEDTIME 07/04/20 05/02/21 zolpidem 10 mg tablet (Ambien) 10 mg PO BEDTIME PRN 07/04/20 01/01/22 blood sugar diagnostic #10 ea 07/15/20 01/01/22 loratadine 10 mg tablet (Allergy 10 mg PO DAILY PRN 12/16/20 01/01/22 Relief (loratadine)) meloxicam 7.5 mg tablet 7.5 mg PO DAILY 05/02/21 01/01/22 aspirin 81 mg tablet,delayed 81 mg PO DAILY 11/22/23 release calcium carbonate 500 mg calcium 500 mg PO BID 11/22/23 (1,250 mg) chewable tablet ferrous gluconate 324 mg (38 mg 324 mg PO DAILY 11/22/23 iron) tablet latanoprost 0.005 % eye drops 1 drp ophthalmic (eye) BEDTIME 11/22/23 metoprolol tartrate 25 mg tablet 12.5 mg PO BID 11/22/23 Previous Rx's Medication Instructions Recorded blood sugar diagnostic (FreeStyle 1 strip miscellaneous .qd 90 days 06/26/21 Lite Strips) #100 strips glucose 4 gram chewable tablet 12 g (3 x 4 gram) PO Q15M PRN 06/26/21 (Dex4 Glucose) hypoglycemia 90 days #60 tabs pen needle, diabetic 32 gauge x #150 ea 06/26/21 cholecalciferol (vitamin D3) 50 50 mcg PO DAILY #30 caps 10/09/21 mcg (2,000 unit) capsule gabapentin 600 mg tablet 600 mg PO TID 30 days #90 tabs 01/01/22 pen needle, diabetic 32 gauge x #125 ea 01/01/22 (BD Ultra-Fine Che Pen Needle) insulin glargine 100 unit/mL (3 32 unit (0.32 mL) subcut QAM 90 02/12/22 mL) subcutaneous pen (Lant days #28.8 mL Solostar U-100 Insulin) triamcinolone acetonide 0.5 % 1 appl topical BID apply to rash 03/20/22 topical cream on chest #15 grams flash glucose sensor (FreeStyle 1 ea topical Q2W 90 days #6 ea 04/28/22 Sal 14 Day Sensor kit) insulin lispro 100 unit/mL See Rx Instructions subcut TID #15 07/02/22 subcutaneous pen mL metformin 1,000 mg tablet 1,000 mg PO BID 30 days #60 tabs 08/25/22 tramadol 50 mg tablet 50 mg PO BID PRN pain #5 tabs 04/27/23 docusate sodium 100 mg capsule 200 mg (2 x 100 mg) PO BEDTIME 11/22/23 #180 caps esomeprazole magnesium 40 mg 40 mg PO DAILY #30 caps 11/22/23 capsule,delayed release (Nexium) alprazolam 0.5 mg tablet (Xanax) 0.5 mg PO BID PRN anxiety #20 tabs 11/30/23 Allergies Allergy/AdvReac Type Severity Reaction Status Date / Time No Known Allergies Allergy Verified 11/22/23 10:30 Review of Systems 2 Review of Systems: Yes all other systems are reviewed and are negative [facility] Past Medical History Medical History Acid indigestion Back pain Palpitations Leukocytosis Depression Anxiety Asthma Migraine Type 2 diabetes mellitus with polyneuropathy Type 2 diabetes mellitus with hyperglycemia, with long-term current use of insulin Essential hypertension Vitamin D insufficiency Surgical History Hx of mammogram Hx of section Family History Family History Father Hypertension Diabetes Heart disease Mother Diabetes Heart disease Hypertension Social History Social History Household Members: Family and Children Alcohol intake: current Alcohol intake frequency: does not drink Patient Tobacco Use Status: Never used Tobacco Smoked in Last 30 Days: No Advance Directives: No Advance Directives Information Provided: No Physical Exam ED Vital Signs: Vital Signs - 24 hr 11/30/23 16:11 11/30/23 21:24 Temperature 97.6 F 98.2 F Pulse Rate 90 75 Respiratory Rate 18 16 Blood Pressure 187/92 H 140/71 H Pulse Oximetry 100 98 Oxygen Delivery Method Room Air Room Air BMI result Body Mass Index 33.3 Appearance: Alert. Oriented X3. No acute distress. Eyes: PERRLA, No Nystagmus ENT: Pharynx normal. Oral Mucosa moist Neck: Normal inspection. Neck supple. CVS: Normal heart rate and rhythm. Pulses normal. Respiratory: No respiratory distress. Equal air entry bilateral, no wheezing/rales/rhonchi Abdomen: Soft and nontender. Bowel sounds are present, no mass palpable, no CVA tenderness Skin: Skin warm and dry. Normal skin color. Normal skin turgor. Extremities: No lower extremity edema. No calf tenderness Neuro: Oriented X 3. No motor deficit. Course Course Course Narrative: RME- 48 year old female presents for evaluation of chest pain since yesterday. Plan for cardiac workup with labs, EKG, chest x-ray Medications Administered Discontinued Medications Generic Name Dose Route Start Last Admin Trade Name Freq PRN Reason Stop Dose Admin Alprazolam 0.5 mg 11/30/23 21:48 11/30/23 21:54 Alprazolam 0.5 Mg Tablet PO 11/30/23 21:49 0.5 mg ONCE ONE Administration Medical Decision Making Medical Decision Making [facility] Narrative: Patient with chronic frequent chest pain with multiple evaluation in the ED negative workup likely has stress cardiomyopathy with history of anxiety 2 sets of cardiac enzymes negative discharge patient home on medication for anxiety advised to follow with senior accounting manager Differential Diagnosis Differential Diagnoses: The differential diagnosis associated with the presentation includes Lab Data [facility] Lab Attestation statement: I reviewed the patient's lab results. 11/30/23 19:01 11/30/23 19:01 Labs: Lab Results 11/30/23 11/30/23 Range/Units 19:01 21:55 WBC 14.0 H (4.8-10.8) X10*3/uL RBC 4.54 (4.20-5.50) X10*6/uL Hgb 12.2 (12.0-16.0) g/dl Hct 38.2 (37.0-47.0) % MCV 84.1 (80.0-98.0) fL MCH 26.9 L (27.0-33.0) pg MCHC 31.9 (31.0-35.0) g/dl RDW 13.4 (11.0-16.0) % Plt Count 361 (160-400) X10*3/uL MPV 10.7 (9.4-12.3) fL Immature Gran % (Auto) 0.3 (0.0-0.4) % Neut % (Auto) 69.1 (45-73) % Lymph % (Auto) 25.1 (20-40) % [place] % (Auto) 4.5 (2-11) % Eos % (Auto) 0.7 (0-4) % Baso % (Auto) 0.3 (0-2) % Lymph # (Auto) 3.5 (1.2-4.9) X10*3/uL [place] # (Auto) 0.6 (0.1-1.2) X10*3/uL Eos # (Auto) 0.1 (0.0-0.4) X10*3/uL Baso # (Auto) 0.0 (0.0-0.2) X10*3/uL Abs Immat Gran (auto) 0.04 H (0.00-0.03) X10*3/uL Absolute Neuts (auto) 9.7 H (2.0-8.3) x10*3/uL Absolute Nucleated RBC 0.000 (0.0-0.012) X10*3/uL Nucleated RBC % (auto) 0.0 (0.0-0.2) /100WBC PT 13.4 H (11.1-13.3) SEC INR 1.1 (0.9-1.1) Sodium 138 (135-145) mmol/L Potassium 3.8 (3.3-5.1) mmol/L Chloride 105 (96-108) mmol/L Carbon Dioxide 26 (22-29) mmol/L Anion Gap 11 L (12-20) BUN 8 L (9-16) mg/dL Creatinine 0.69 (0.5-1.4) mg/dL Estim Creat Clear Calc 109.7 Estimated GFR > 60 Random Glucose 149 H (60-115) mg/dL Calcium 9.9 (8.4-10.2) mg/dL Total Bilirubin 0.1 (0.0-1.0) mg/dL AST 17 (5-31) U/L ALT 22 (0-31) U/L Alkaline Phosphatase 69 (39-117) U/L Troponin I High Sens < 2.7 < 2.7 (<3.5-17.0) ng/L Total Protein 8.1 H (6.5-8.0) g/dL Albumin 4.0 (3.5-5.0) g/dL Lipase 34 (8-78) U/L Influenza Type A (PCR) NEGATIVE (Negative) Influenza Type B (PCR) NEGATIVE (Negative) RSV RNA Qual (PCR) NEGATIVE (Negative) SARS-CoV-2 RNA (RT-PCR) NEGATIVE (Negative) Independent Interpretation I performed an independent interpretation of an: EKG Interpretation: Normal sinus rhythm heart rate of 75 normal interval normal axis no acute ST-T no acute ischemia Discharge Plan Discharge Clinical Impression: Chest pain, Anxiety Patient Disposition: Home, Self-Care Instructions: Chest Pain (ED), Anxiety (ED) Additional Instructions: Your basic cardiac workup is negative for coronary artery disease The chest pain is likely from anxiety/panic attack Take medication as prescribed for anxiety/sleep Follow-up with your senior accounting manager as scheduled Prescriptions: New alprazolam [Xanax] 0.5 mg tablet 0.5 mg PO BID PRN (Reason: anxiety) Qty: 20 0RF No Action FreeStyle Lite Strips Strip 1 strip miscellaneous .qd 90 Days Qty: 100 10RF glucose [Dex4 Glucose] 4 gram tablet,chewable 12 g PO Q15M PRN (Reason: hypoglycemia) 90 Days Qty: 60 3RF Rx Instructions: until symptoms of low blood sugar are controlled (DME) pen needle, diabetic 32 gauge x 5/32 needle See Rx Instructions subcut .MEDSUPPLY Qty: 150 11RF Rx Instructions: Once a day cholecalciferol (vitamin D3) 50 mcg (2,000 unit) capsule 50 mcg PO DAILY Qty: 30 11RF Lantus Solostar U-100 Insulin 100 unit/mL (3 mL) insulin pen 32 unit subcut QAM 90 Days Qty: 28.8 1RF FreeStyle Sal 14 Day Sensor Kit 1 ea topical Q2W 90 Days Qty: 6 11RF insulin lispro 100 unit/mL insulin pen See Rx Instructions subcut TID Qty: 15 5RF Rx Instructions: 4 units before breakfast and dinner and 6 units before lunch subcut 3 times a day; 4 units before breakfast and dinner and 6 units before lunch subcut 3 times a day; subcutaneously 3 times a day; metformin 1,000 mg tablet 1,000 mg PO BID 30 Days Qty: 60 0RF Rx Instructions: FUTURE REFILLS FROM PCP. triamcinolone acetonide 0.5 % cream 1 appl topical BID Qty: 15 0RF tramadol 50 mg tablet 50 mg PO BID PRN (Reason: pain) Qty: 5 0RF (DME) FreeStyle Precision Krunal Strips Strip See Rx Instructions .ROUTE DAILY Qty: 10 Rx Instructions: As directed meloxicam 7.5 mg tablet 7.5 mg PO DAILY lorazepam 0.5 mg tablet 0.5 mg PO DAILY PRN hydroxyzine HCl 25 mg tablet 25 mg PO BEDTIME zolpidem [Ambien] 10 mg tablet 10 mg PO BEDTIME PRN quetiapine [Seroquel] 25 mg tablet 25 mg PO BEDTIME fluticasone propionate [Flonase Allergy Relief] 50 mcg/actuation spray,suspension 1 spray intranasal DAILY Rx Instructions: administer into each nostril amitriptyline 25 mg tablet 25 mg PO DAILY lisinopril 10 mg tablet 10 mg PO DAILY albuterol sulfate 90 mcg/actuation HFA aerosol inhaler 2 puff inhalation Q4-5H PRN loratadine [Allergy Relief (loratadine)] 10 mg tablet 10 mg PO DAILY PRN (DME) pen needle, diabetic [BD Ultra-Fine Che Pen Needle] 32 gauge x 5/32 needle See Rx Instructions .ROUTE .MEDSUPPLY Qty: 125 6RF Rx Instructions: As directed four times a day gabapentin 600 mg tablet 600 mg PO TID 30 Days Qty: 90 6RF aspirin 81 mg tablet,delayed release (DR/EC) 81 mg PO DAILY latanoprost 0.005 % drops 1 drp ophthalmic (eye) BEDTIME ferrous gluconate 324 mg (38 mg iron) tablet 324 mg PO DAILY docusate sodium 100 mg capsule 200 mg PO BEDTIME Qty: 180 3RF esomeprazole magnesium [Nexium] 40 mg capsule,delayed release(DR/EC) 40 mg PO DAILY Qty: 30 5RF metoprolol tartrate 25 mg tablet 12.5 mg PO BID calcium carbonate 500 mg calcium (1,250 mg) tablet,chewable 500 mg PO BID Interventions: ED Discharge Assessment Last Done: 11/30/23 23:04 Discharge Date/Time: 11/30/23 23:07
[2023-11-30 19:06] LABS: MANUAL DIFF FLAG NO
[2023-11-30 19:07] LABS: Basophils Percent Auto 0.3 % (0-2); Eosinophils Absolute Auto 0.1 X10*3/uL (0.0-0.4); Eosinophils Percent Auto 0.7 % (0-4); Hematocrit 38.2 % (37.0-47.0); Hemoglobin 12.2 g/dl (12.0-16.0); Imm Gran Abs Auto 0.04 X10*3/uL (0.00-0.03); Imm Gran Pct Auto 0.3 % (0.0-0.4); Lymphocytes Absolute Auto 3.5 X10*3/uL (1.2-4.9); Lymphocytes Percent Auto 25.1 % (20-40); Mean Corpuscular HGB Conc 31.9 g/dl (31.0-35.0); Mean Corpuscular Hemoglobin 26.9 pg (27.0-33.0); Mean Corpuscular Volume 84.1 fL (80.0-98.0); Mean Platelet Volume 10.7 fL (9.4-12.3); Monocytes Absolute Auto 0.6 X10*3/uL (0.1-1.2); Monocytes Percent Auto 4.5 % (2-11); Neutrophils Absolute Auto 9.7 x10*3/uL (2.0-8.3); Neutrophils Percent Auto 69.1 % (45-73); Platelet Count 361 X10*3/uL (160-400); Red Blood Count 4.54 X10*6/uL (4.20-5.50); Red Cell Distribution Width 13.4 % (11.0-16.0)
[2023-11-30 19:14] LABS: INTERNATIONAL NORM RATIO 1.1 (0.9-1.1); Prothrombin Time 13.4 SEC (11.1-13.3)
[2023-11-30 19:22] LABS: Alanine Aminotransferase 22 U/L (0-31); Alkaline Phosphatase 69 U/L (39-117); Anion Gap 11 (12-20); Aspartate Amino Transferase 17 U/L (5-31); Bilirubin Total 0.1 mg/dL (0.0-1.0); Blood Urea Nitrogen 8 mg/dL (9-16); Calcium 9.9 mg/dL (8.4-10.2); Carbon Dioxide 26 mmol/L (22-29); Chloride 105 mmol/L (96-108); Creatinine Clr Calc Pharmacy 109.7; Estimated Glomerular Filt Rate > 60; Glucose Random 149 mg/dL (60-115); Lipase 34 U/L (8-78); Potassium 3.8 mmol/L (3.3-5.1); Sodium 138 mmol/L (135-145); Total Protein 8.1 g/dL (6.5-8.0)
[2023-11-30 19:34] LABS: Troponin-I High Sensitivity < 2.7 ng/L (<3.5-17.0)
[2023-11-30 19:43] LABS: Influenza A PCR NEGATIVE (Negative); Influenza B PCR NEGATIVE (Negative); Resp Syncy Virus RNA Qual PCR NEGATIVE (Negative); SARS COV2 PCR INHOUSE NEGATIVE (Negative)
[2023-11-30 21:24] VITALS: BP 140/71; PULSE 75; RESP 16; TEMP 36.8; O2SAT 98
--- NOTE | 2023-11-30 21:34 | MHC.EDTECH ---
This pct just assumed care of patient ,vitals taken ,and Patient was hooked up to monitor technician .
[2023-11-30] MEDS: ALPRAZolam 0.5 MG TABLET PO (21:54)
--- NOTE | 2023-11-30 22:10 | MHC.EDTECH ---
PATIENT 2ND TROP COLLECTED AND SENT TO LAB .
[2023-11-30 22:31] LABS: Troponin-I High Sensitivity < 2.7 ng/L (<3.5-17.0)
== END 2023-11-30 23:07 | disposition home or self-care (01) ==
PROVIDERS: Physician Assistant; Emergency Provider Internal Medicine; PCP Hospitalist
DX: R06.02 Shortness of breath (principal); R07.89 Other chest pain; F41.9 Anxiety disorder, unspecified; Z79.899 Other long term (current) drug therapy; Z20.822 Contact with and (suspected) exposure to COVID-19; Z11.52 Encounter for screening for COVID-19
CPT/HCPCS: 0241U; 36415; 71046; 80053; 83690; 84484; 85025; 85610; 93005; 99283; 99284

== ENCOUNTER → 2023-11-30 16:12 | Outpatient (BNV) | payer OTHER, SELFPAY | PROVIDERS: Emergency Provider Internal Medicine; PCP Hospitalist; Visit Provider Internal Medicine Cardiovascular Disease | DX: R94.31 Abnormal electrocardiogram [ECG] [EKG] (principal) | CPT/HCPCS: 93010 ==

== ENCOUNTER 2023-12-22 10:59 | Outpatient (AMB) | payer OTHER, SELFPAY ==
--- NOTE | 2023-12-22 11:07 | A.OFFVIS_ITS ---
Intake Vital Signs 12/22/23 11:09 Height 5 ft 5 in Weight 208 lb 1.862 oz BMI 34.6 BP 130/60 Blood Pressure Location Lt brachial Position Sitting Pulse 71 Pulse Source Pulse Oximeter Pulse Oximetry (%) 99 Oxygen Delivery Method Room Air Intake Visit Reasons: 3 week follow up Intake Note: pt here for 3 months follow up.abdominal pain, loss appetite for one month Clinical Laboratory Scientist Required: Yes Clinical Laboratory Scientist Language: Azeri Clinical Laboratory Scientist Name: Joao([id number]) Accompanied by: Son Allergies No Known Allergies Allergy (Verified 11/22/23 10:30) HPI 3 week follow up HPI Details LAST VISIT: Postprandial epigastric pain Postprandial abdominal bloating Constipation Dyspepsia Plan Patient reports postprandial abdominal pain, will check lipase r/o pancreatitis, transglutaminase to rule out celiac component. Will check thyroid study, liver panel as well as vitamin B12, folate and vitamin-D level. Patient can stop taking omeprazole. Start taking Nexium in the morning half an hour before breakfast. Patient can take 2 Colace every evening to help her move her bowels better. Discussed with patient possibly going for upper endoscopy. Patient reports that she is too anxious to go for this type of a procedure. Reports that she will think about it until next appointment. Discussed with patient avoiding dietary triggers and late night snacking. Staying upright for minimum 3 hours after meals discussed with patient. I will see patient in 3 weeks, sooner on as needed basis. Patient is agreeable to this plan and verbalizes understanding of instructions. She was given the opportunity to ask questions and all questions answered. ? Thank you for allowing me to participate in her care Orders Orders Transglutaminase IgA Today R10.9 Lipase Today R10.9 Vitamin B12 and Folate Today R19.7 Transglutaminase Ab IgG Today R10.9 TSH reflex Free T4 Today K59.00 Liver Panel Today R74.01 Vitamin D 25-OH (D2 and D3) Today E55.9 Medications New docusate sodium 200 mg (2 x 100 mg) PO BEDTIME 180 caps 3RF K59.00 esomeprazole magnesium (Nexium) 40 mg PO DAILY 30 caps 5RF K21.9 Discontinued omeprazole Discontinued Reason: Doctor's Order 40 mg PO DAILY 20 caps 0RF TODAY'S VISIT: Patient is here today for follow-up and to discuss lab results. Patient continues to have epigastric discomfort postprandially. Patient also reports postprandial abdominal bloating. Patient tried [id number] simethicone with each meal and stated that she felt better. She reports that she is moving her bowels without any issues. Now that she is taking Colace. Patient reports that when she gets bloated she will get epigastric pain so strong that she feels it in her back. Patient gets very bloated with almost anything she eats. Patient never had colonoscopy and states that she does not want to go for colonoscopy. Patient agrees to go for upper endoscopy even though he is very scared. Patient denies melena, hematochezia, unintentional weight loss or ribbon like stools. Patient reports dyspepsia without dysphagia or odynophagia. [facility] Medical History Acid indigestion Back pain Palpitations Leukocytosis Depression Anxiety Asthma Migraine Type 2 diabetes mellitus with polyneuropathy Type 2 diabetes mellitus with hyperglycemia, with long-term current use of insulin Essential hypertension Vitamin D insufficiency Surgical History Hx of mammogram Hx of section Family History Father Hypertension Diabetes Heart disease Mother Diabetes Heart disease Hypertension Social History Household Members: Family and Children Alcohol intake: current Alcohol intake frequency: does not drink Patient Tobacco Use Status: Never used Tobacco Review of Systems Const Denies weight gain and Denies weight loss ENT Reports no additional complaints, Denies dysphagia and Denies odynophagia Card Reports no additional complaints Resp Reports no additional complaints GI Reports abdominal pain, Denies belching, Denies melena, Reports bloating, Denies change in bowel habits, Denies dysphagia, Denies excessive flatus, Denies dyspepsia, Reports heartburn, Denies diarrhea, Denies loose stools, Denies nausea, Denies odynophagia and Denies vomiting Reports no additional complaints Musc Reports no additional complaints Neuro Reports no additional complaints Psych Reports no additional complaints Endo Reports no additional complaints Physical Exam Vital Signs: Last Vital Signs Pulse 71 12/22/23 11:09 BP 130/60 12/22/23 11:09 Pulse Ox 99 12/22/23 11:09 Oxygen Delivery Method Room Air 12/22/23 11:09 BMI result Body Mass Index 34.6 Const General: healthy appearing and no acute distress Nutritional Appearance: obese Orientation/consciousness: patient oriented x3 Resp Effort & Inspection: normal respiratory effort, able to speak in complete sentences, no tracheal deviation and symmetric chest movement Auscultation: clear to auscultation bilaterally Cardio Rate: regular rate GI Inspection: Yes normal to inspection, No distended and Yes obesity Palpation (GI): Soft to palpation, not firm, nontender and No hepatosplenomegaly present Auscultation: normal bowel sounds General: Yes no CVA tenderness Back/Spine/Pelvis Back: no CVA tenderness Skin General skin exam: elasticity normal, turgor normal and dry skin Neuro General: patient oriented x3 Psych Appearance: grossly normal Mental Status: mental status grossly normal Assessment & Plan Assessment & Plan (1) Postprandial epigastric pain: Code(s): R10.13 - Epigastric pain (2) Postprandial abdominal bloating: Code(s): R14.0 - Abdominal distension (gaseous) (3) Constipation: Code(s): K59.00 - Constipation, unspecified Qualifiers: Constipation type: slow transit constipation Qualified Code(s): K59.01 - Slow transit constipation (4) Dyspepsia: Code(s): R10.13 - Epigastric pain (5) IBS (irritable bowel syndrome): Code(s): K58.9 - Irritable bowel syndrome without diarrhea Qualifiers: Irritable bowel syndrome type: without diarrhea Qualified Code(s): K58.9 - Irritable bowel syndrome without diarrhea Plan Discussed with patient avoiding dietary triggers and late night snacking. Staying upright for minimum patient. Patient will stop Nexium and start lansoprazole. Patient can also take famotidine at bedtime. Patient was instructed to stay upright for minimal 3 hours after meals. We will rule out pancreatic insufficiency and H pylori. Patient will be sent for upper endoscopy. I will also send her for ultrasound to rule out cholelithiasis, cholecystitis. I will see patient few weeks before the procedure, sooner on as needed basis. Patient is is agreeable to plan of care and verbalizes understanding of instructions. She was given the opportunity to ask questions and all questions answered. Thank you for allowing me to participate in her care Orders: Orders H pylori Ag Stool Today K21.9 - Gastro-esophageal reflux disease without esophagitis Pancreatic Elastase-1 Today R10.9 - Unspecified abdominal pain US abdomen complete Today R10.9 - Unspecified abdominal pain Medications: New lansoprazole 30 mg PO DAILY 30 caps 3RF K21.9 - Gastro-esophageal reflux disease without esophagitis famotidine 40 mg PO BEDTIME 30 tabs 3RF K21.9 - Gastro-esophageal reflux disease without esophagitis simethicone (Gas Relief (simethicone)) 125 mg PO TID-QID PRN 120 caps 2RF abdominal distention Discontinued esomeprazole magnesium (Nexium) Discontinued Reason: Doctor's Order 40 mg PO DAILY 30 caps 5RF K21.9 - Gastro-esophageal reflux disease without esophagitis Coding Level of Care Code Est Pt Level 4 (81920) Diagnoses Postprandial epigastric pain R10.13 Postprandial abdominal bloating R14.0 Slow transit constipation K59.01 Constipation type: slow transit constipation Dyspepsia R10.13 Irritable bowel syndrome without diarrhea K58.9 Irritable bowel syndrome type: without diarrhea Time Spent (min) 35 Comment 25 minutes spent with patient and additional 10 minutes spent reviewing her records
[2023-12-22 11:09] VITALS: BP 130/60; PULSE 71; O2SAT 99; BMI 34.6
== END 2023-12-22 11:57 | disposition home or self-care (01) ==
PROVIDERS: PCP Hospitalist; Visit Provider Nurse Practitioner Family
DX: R10.13 Epigastric pain (principal); R14.0 Abdominal distension (gaseous); K59.01 Slow transit constipation; K58.9 Irritable bowel syndrome, unspecified
CPT/HCPCS: 99214

== ENCOUNTER 2023-12-22 10:59 | Outpatient (REF) | payer OTHER, SELFPAY | END 2023-12-22 11:00 | disposition home or self-care (01) | LOC: HO.LAB 10:59 | PROVIDERS: PCP Hospitalist; Visit Provider Nurse Practitioner Family | DX: R10.13 Epigastric pain (principal); R14.0 Abdominal distension (gaseous); K59.01 Slow transit constipation; R63.0 Anorexia; K58.9 Irritable bowel syndrome, unspecified; K21.9 Gastro-esophageal reflux disease without esophagitis | CPT/HCPCS: 99212 ==

== ENCOUNTER 2024-01-12 09:08 | Outpatient (REF) | payer OTHER, SELFPAY ==
--- NOTE | ~2024-01-12 | US_ITS ---
EXAMINATION: US ABDOMEN COMPLETE CLINICAL INFORMATION: Unspecified abdominal pain. COMPARISON: CT abdomen and pelvis 04/27/2023. TECHNIQUE: Real-time imaging of the abdominal viscera. Technically difficult study secondary to bowel gas and body habitus. FINDINGS: PANCREAS: Limited visualization of pancreatic tail and head. Imaged portion of pancreatic body is unremarkable. ABDOMINAL AORTA: Limited visualization. INFERIOR VENA CAVA: Visualized portions are normal. LIVER: Hepatomegaly. Increased hepatic parenchymal heterogeneity and echogenicity could be associated with hepatocellular disease/hepatic steatosis and severely limits visualization. Hypoechoic areas within the liver adjacent to the gallbladder are characteristic of focal sparing within a fatty liver. Correlation with liver function tests and clinical exam recommended to determine further management. GALLBLADDER: No gallbladder wall thickening. 1.8 x 1.1 x 1.2 cm echogenic focus within the gallbladder characteristic of a gallstone. COMMON BILE DUCT: Normal in caliber measuring 0.6 cm in diameter. RIGHT KIDNEY: Mild right hydronephrosis. No renal calculi. Limited visualization. The kidney measures 11.0 cm in maximum dimension. LEFT KIDNEY: No hydronephrosis. No renal calculi. Limited visualization. The kidney measures 11.7 cm in maximum dimension. SPLEEN: Normal. The spleen measures 11.0 cm in maximum dimension. FREE FLUID: None. US/US abdomen complete IMPRESSION: 1. Hepatomegaly. Increased hepatic parenchymal heterogeneity and echogenicity could be associated with hepatocellular disease/hepatic steatosis and severely limits visualization. Hypoechoic areas within the liver adjacent to the gallbladder are characteristic of focal sparing within a fatty liver. Correlation with liver function tests and clinical exam recommended to determine further management. 2. A 1.8 cm echogenic focus in the gallbladder characteristic of a gallstone. Limited visualization due to bowel gas. 3. Mild right hydronephrosis. No obstructing renal calculi appreciated.
== END 2024-01-12 09:09 | disposition home or self-care (01) ==
LOC: HO.US 09:08
PROVIDERS: PCP Hospitalist; Visit Provider Nurse Practitioner Family
DX: R10.9 Unspecified abdominal pain (principal)
CPT/HCPCS: 76700

== ENCOUNTER 2024-01-20 12:29 | Outpatient (REF) | payer OTHER, SELFPAY ==
[2024-01-27 20:53] LABS: Pancreatic Elastase-1 >500 mcg/g
== END 2024-01-20 12:30 | disposition home or self-care (01) ==
LOC: HO.LNP 12:29
PROVIDERS: Visit Provider Nurse Practitioner Family
DX: K21.9 Gastro-esophageal reflux disease without esophagitis (principal); R10.9 Unspecified abdominal pain
CPT/HCPCS: 82656; 87338

== ENCOUNTER 2024-01-31 16:35 | Emergency (ER) | payer OTHER, SELFPAY ==
--- NOTE | ~2024-01-31 | US_ITS ---
EXAMINATION: US PELVIS CLINICAL INFORMATION: Heavy vaginal bleeding. COMPARISON: CT abdomen/pelvis 04/27/2023. TECHNIQUE: Ultrasound of the pelvis is performed using both transabdominal and transvaginal transducers along with Doppler. Transvaginal imaging is performed due to inadequate visualization transabdominally. FINDINGS: The uterus is anteverted measuring 10.7 x 5.6 x 6.3 cm. There is a 1.1 x 1 x 0.9 cm intramural lesion in the left uterine body, most likely representing a fibroid. Simple appearing nabothian cysts are noted in the cervix. The endometrium measures 1.9 cm in thickness without discrete focal abnormality nor associated vascularity on color Doppler. The ovaries are normal in morphology with preserved flow on color Doppler at the moment of this examination. The right ovary measures 2.5 x 1.7 x 1.6 cm, 3.6 mL. The left ovary measures 3.2 x 1.7 x 2.7 cm, 7.7 mL. There is a 2.1 x 1.1 x 1.4 cm simple appearing cyst in the left ovary, for which no imaging follow-up is recommended. No free fluid. US/US pelvic and transvaginal IMPRESSION: 1. Nonspecific mild thickening of the endometrium. Recommend LITHOGRAPH DESIGNER consultation and short-term follow-up pelvic ultrasound. 2. There is a 1.1 cm intramural lesion in the left uterine body, most likely representing a fibroid. 3. Normal sonographic appearance of the ovaries.
[2024-01-31 16:59] VITALS: BP 137/84; PULSE 81; RESP 16; TEMP 36.4; O2SAT 99; BMI 35.4
--- NOTE | 2024-01-31 17:03 | ED.GENADULT ---
HPI - General Adult General Chief complaint: Vaginal Bleeding Stated complaint: vaginal bleeding x22 days Time Seen by Provider: 01/31/24 22:52 Source: patient Mode of arrival: ambulatory Limitations: no limitations History of Present Illness HPI narrative: patient comes to the emergency room accompanied by her son. Patient is Persian speaking only, patient respectfully declined cell tuber machine, would like her son to interpret. Patient comes to the emergency room complaining of menstrual bleeding for approximately 25 days straight. Patient states that for the last couple of months, her menstrual cycle has become irregular. However, this time she came because she has been bleeding for so long and now she has mild lightheadedness and she is concerned that she may be becoming too anemic. Patient denies abdominal pain, no chest pain or shortness of breath, no dysuria. patient states that she saturates 6 pads every 24 hours. Related Data Home Medications ?Medication ?Instructions ?Recorded ?Confirmed albuterol sulfate 90 mcg/actuation 2 puff inhalation Q4-5H PRN 07/04/20 01/01/22 aerosol inhaler amitriptyline 25 mg tablet 25 mg PO DAILY 07/04/20 01/01/22 fluticasone propionate 50 1 spray intranasal DAILY 07/04/20 01/01/22 mcg/actuation nasal spray,suspension (Flonase Allergy Relief) hydroxyzine HCl 25 mg tablet 25 mg PO BEDTIME 07/04/20 01/01/22 lisinopril 10 mg tablet 10 mg PO DAILY 07/04/20 01/01/22 lorazepam 0.5 mg tablet 0.5 mg PO DAILY PRN 07/04/20 01/01/22 quetiapine 25 mg tablet (Seroquel) 25 mg PO BEDTIME 07/04/20 05/02/21 zolpidem 10 mg tablet (Ambien) 10 mg PO BEDTIME PRN 07/04/20 01/01/22 blood sugar diagnostic #10 ea 07/15/20 01/01/22 loratadine 10 mg tablet (Allergy 10 mg PO DAILY PRN 12/16/20 01/01/22 Relief (loratadine)) meloxicam 7.5 mg tablet 7.5 mg PO DAILY 05/02/21 01/01/22 aspirin 81 mg tablet,delayed 81 mg PO DAILY 11/22/23 release calcium carbonate 500 mg PO BID 11/22/23 ferrous gluconate 324 mg (38 mg 324 mg PO DAILY 11/22/23 iron) tablet latanoprost 0.005 % eye drops 1 drp ophthalmic (eye) BEDTIME 11/22/23 metoprolol tartrate 25 mg tablet 12.5 mg PO BID 11/22/23 Previous Rx's ?Medication ?Instructions ?Recorded blood sugar diagnostic (FreeStyle 1 strip miscellaneous .qd 90 days 06/26/21 Lite Strips) #100 strips glucose 4 gram chewable tablet 12 g (3 x 4 gram) PO Q15M PRN 06/26/21 (Dex4 Glucose) hypoglycemia 90 days #60 tabs pen needle, diabetic 32 gauge x #150 ea 06/26/21 cholecalciferol (vitamin D3) 50 50 mcg PO DAILY #30 caps 10/09/21 mcg (2,000 unit) capsule gabapentin 600 mg tablet 600 mg PO TID 30 days #90 tabs 01/01/22 pen needle, diabetic 32 gauge x #125 ea 01/01/22 (BD Ultra-Fine Che Pen Needle) insulin glargine 100 unit/mL (3 32 unit (0.32 mL) subcut QAM 90 02/12/22 mL) subcutaneous pen ( #28.8 mL Solostar U-100 Insulin) triamcinolone acetonide 0.5 % 1 appl topical BID apply to rash 03/20/22 topical cream on chest #15 grams flash glucose sensor (FreeStyle 1 ea topical Q2W 90 days #6 ea 04/28/22 Sal 14 Day Sensor kit) insulin lispro 100 unit/mL See Rx Instructions subcut TID #15 07/02/22 subcutaneous pen mL metformin 1,000 mg tablet 1,000 mg PO BID 30 days #60 tabs 08/25/22 tramadol 50 mg tablet 50 mg PO BID PRN pain #5 tabs 04/27/23 docusate sodium 100 mg capsule 200 mg (2 x 100 mg) PO BEDTIME 11/22/23 #180 caps alprazolam 0.5 mg tablet (Xanax) 0.5 mg PO BID PRN anxiety #20 tabs 11/30/23 famotidine 40 mg tablet 40 mg PO BEDTIME #30 tabs 12/22/23 lansoprazole 30 mg capsule,delayed 30 mg PO DAILY #30 caps 12/22/23 release simethicone 125 mg capsule (Gas 125 mg PO TID-QID PRN abdominal 12/22/23 Relief (simethicone)) distention #120 caps bismuth subsalicylate 262 mg 2 tab PO QID diarrhea 14 days #112 01/21/24 chewable tablet tabs metronidazole 500 mg tablet 1,000 mg (2 x 500 mg) PO BID #56 01/21/24 tabs tetracycline 500 mg capsule 1,000 mg (2 x 500 mg) PO Q12H #56 01/21/24 caps tranexamic acid 650 mg tablet 1,300 mg (2 x 650 mg) PO TID 5 01/31/24 days #30 tabs Allergies Allergy/AdvReac Type Severity Reaction Status Date / Time No Known Allergies Allergy Verified 01/31/24 17:06 Review of Systems Review of Systems: Constitutional : No Weight loss, No Fever, No Chills, No Night Sweats, No Fatigue, No Malaise ENT/Mouth : No Hearing loss, No Ear Pain, No Nasal Congestion, No Sinus Pain, No Hoarseness, No sore throat, No Rhinorrhea, No Swallowing Difficulty Eyes: No Eye Pain, No Swelling, No Redness, No Foreign Body, No Discharge, No Vision Changes Cardiovascular : No Chest Pain, No SOB, No Dyspnea on Exertion, No Orthopnea, No Edema, No Palpitations Respiratory : No Cough, No Sputum, No Wheezing, No Smoke Exposure, No Dyspnea Gastrointestinal : No Nausea, No Vomiting, No Diarrhea, No Constipation, No abdominal Pain, No Hematochezia, No Melena Genitourinary : Complaining of irregular bleeding, now on day 25 of vaginal bleeding. No Dysuria, No Urinary Frequency, No Hematuria, No Urinary Incontinence, No Urgency, No Flank Pain, No Urinary Flow Changes, No Hesitancy Musculoskeletal : No joint pain, No Myalgias, No Joint Swelling Skin : No Skin Lesions, No rash Neuro : No Weakness, No Numbness, No Paresthesias, No Loss of Consciousness, No Dizziness, No Headache Psych : No Anxiety/Panic, No Depression, No SI/HI/AH/VH, No Social Issues, Heme/Lymph: No Bruising, No Bleeding,No Lymphadenopathy Endocrine : No Polyuria, No Polydipsia, No Temperature Intolerance PMFSH Past Medical History Medical History Acid indigestion Back pain Palpitations Leukocytosis Depression Anxiety Asthma Migraine Type 2 diabetes mellitus with polyneuropathy Type 2 diabetes mellitus with hyperglycemia, with long-term current use of insulin Essential hypertension Vitamin D insufficiency Surgical History Hx of mammogram Hx of section Family History Family History Father Hypertension Diabetes Heart disease Mother Diabetes Heart disease Hypertension Social History Social History Household Members: Family and Children Alcohol intake: current Alcohol intake frequency: does not drink Patient Tobacco Use Status: Never used Tobacco Advance Directives: No Advance Directives Information Provided: No Do you have a plan to hurt others: No Plan Physical Exam ED Vital Signs: Vital Signs - 24 hr 01/31/24 16:59 01/31/24 22:07 Temperature 97.6 F Pulse Rate 81 79 Respiratory Rate 16 16 Blood Pressure 137/84 140/75 H Pulse Oximetry 99 98 Oxygen Delivery Method Room Air Room Air BMI result Body Mass Index 35.4 Const Other: Appearance: Alert. Oriented X3. No acute distress. Eyes: Pupils equal, round and reactive to light. ENT: Pharynx normal. Neck: Normal inspection. Neck supple. No lymph nodes noted. No crepitus CVS: Normal heart rate and rhythm. Pulses normal. Normal S1 and S2 Respiratory: No respiratory distress. Breath sounds normal. No Wheezing. No rales Abdomen: Soft and nontender. No rigidity. No distention. : Moderate vaginal bleeding Skin: Skin warm and dry. Normal skin color. Normal skin turgor. Extremities: No lower extremity edema. No Lacerations. No Rash Neuro: Oriented X 3. No motor deficit. No sensory deficit. Moving all extremities. No slurred speech. CN 2 through 12 grossly intact Psych: calm, cooperative, normal affect Course Course Course Narrative: RME performed by Tiffanie Mckeon PA-C. Patient is a 48 year old assigned female at presenting to the emergency department with vaginal bleeding. Patient states that she has had irregular periods lately, didn't have a period for months, and has now had a period for 25 days with intermittent days of heavy bleeding. Patient states that if necessary, she would consent to a blood transfusion. Detailed physical exam and review of systems are deferred to the grinder set up operator external. Labs ordered. Patient placed back in the waiting room pending room availability and results. Medical Decision Making Medical Decision Making [facility] Narrative: - my interpretation of labs: Hemoglobin 11.7, slightly be low patient's last set of labs, hemoglobin was 12.2. - Chemistry within normal limits - ultrasound report: There is a 1.1 cm fibroid - patient may be having heavy menstrual. Secondary to starting menopause versus a fibroma. - I discussed with the patient multiple treatment options including control pills, TXA, IUD. Patient states that she would like the treatment that is the shortness , which would be TXA. 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 Differential Diagnosis Differential Diagnoses: The differential diagnosis associated with the presentation includes ( As above) Lab Data [facility] Lab Attestation statement: I reviewed the patient's lab results. 01/31/24 18:11 01/31/24 18:11 Labs: Lab Results 01/31/24 Range/Units 18:11 WBC 16.4 H (4.8-10.8) X10*3/uL RBC 4.25 (4.20-5.50) X10*6/uL Hgb 11.7 L (12.0-16.0) g/dl Hct 35.4 L (37.0-47.0) % MCV 83.3 (80.0-98.0) fL MCH 27.5 (27.0-33.0) pg MCHC 33.1 (31.0-35.0) g/dl RDW 14.1 (11.0-16.0) % Plt Count 440 H (160-400) X10*3/uL MPV 10.6 (9.4-12.3) fL Immature Gran % (Auto) 0.5 H (0.0-0.4) % Neut % (Auto) 64.4 (45-73) % Lymph % (Auto) 27.0 (20-40) % [place] % (Auto) 5.8 (2-11) % Eos % (Auto) 1.9 (0-4) % Baso % (Auto) 0.4 (0-2) % Lymph # (Auto) 4.4 (1.2-4.9) X10*3/uL [place] # (Auto) 1.0 (0.1-1.2) X10*3/uL Eos # (Auto) 0.3 (0.0-0.4) X10*3/uL Baso # (Auto) 0.1 (0.0-0.2) X10*3/uL Abs Immat Gran (auto) 0.08 H (0.00-0.03) X10*3/uL Absolute Neuts (auto) 10.6 H (2.0-8.3) x10*3/uL Absolute Nucleated RBC 0.000 (0.0-0.012) X10*3/uL Nucleated RBC % (auto) 0.0 (0.0-0.2) /100WBC PT 14.9 H (11.1-13.3) SEC INR 1.2 H (0.9-1.1) APTT 31.0 (26.0-36.8) SEC Sodium 138 (135-145) mmol/L Potassium 4.0 (3.3-5.1) mmol/L Chloride 103 (96-108) mmol/L Carbon Dioxide 24 (22-29) mmol/L Anion Gap 15 (12-20) BUN 10 (9-16) mg/dL Creatinine 0.66 (0.5-1.4) mg/dL Estim Creat Clear Calc 110.2 Estimated GFR > 60 Random Glucose 87 (60-115) mg/dL Calcium 9.9 (8.4-10.2) mg/dL Magnesium 1.8 (1.6-2.6) mg/dL Total Bilirubin 0.1 (0.0-1.0) mg/dL AST 21 (5-31) U/L ALT 28 (0-31) U/L Alkaline Phosphatase 58 (39-117) U/L Total Protein 7.9 (6.5-8.0) g/dL Albumin 4.0 (3.5-5.0) g/dL Independent Interpretation I performed an independent interpretation of an: Ultrasound Radiology Impression Discussion of test interpretation with radiology: I have reviewed the radiologist's reading. Radiologist Impression: IMPRESSION: 1. Nonspecific mild thickening of the endometrium. Recommend COAL MINE INSPECTOR consultation and short-term follow-up pelvic ultrasound. 2. There is a 1.1 cm intramural lesion in the left uterine body, most likely representing a fibroid. 3. Normal sonographic appearance of the ovaries. Discharge Plan Discharge Clinical Impression: Menorrhagia Patient Disposition: Home, Self-Care Instructions: Menorrhagia (ED) Additional Instructions: Please follow-up with your primary care physician tomorrow. If you have any worsening or new symptoms, please return to the emergency room or call 911 Prescriptions: New tranexamic acid 650 mg tablet 1,300 mg PO TID 5 Days Qty: 30 0RF No Action FreeStyle Lite Strips Strip 1 strip miscellaneous .qd 90 Days Qty: 100 10RF glucose [Dex4 Glucose] 4 gram tablet,chewable 12 g PO Q15M PRN (Reason: hypoglycemia) 90 Days Qty: 60 3RF Rx Instructions: until symptoms of low blood sugar are controlled (DME) pen needle, diabetic 32 gauge x 5/32 needle See Rx Instructions subcut .MEDSUPPLY Qty: 150 11RF Rx Instructions: Once a day cholecalciferol (vitamin D3) 50 mcg (2,000 unit) capsule 50 mcg PO DAILY Qty: 30 11RF Lantus Solostar U-100 Insulin 100 unit/mL (3 mL) insulin pen 32 unit subcut QAM 90 Days Qty: 28.8 1RF FreeStyle Sal 14 Day Sensor Kit 1 ea topical Q2W 90 Days Qty: 6 11RF insulin lispro 100 unit/mL insulin pen See Rx Instructions subcut TID Qty: 15 5RF Rx Instructions: 4 units before breakfast and dinner and 6 units before lunch subcut 3 times a day; 4 units before breakfast and dinner and 6 units before lunch subcut 3 times a day; subcutaneously 3 times a day; metformin 1,000 mg tablet 1,000 mg PO BID 30 Days Qty: 60 0RF Rx Instructions: FUTURE REFILLS FROM PCP. tetracycline 500 mg capsule 1,000 mg PO Q12H Qty: 56 0RF metronidazole 500 mg tablet 1,000 mg PO BID Qty: 56 0RF bismuth subsalicylate 262 mg tablet,chewable 2 tab PO QID 14 Days Qty: 112 0RF triamcinolone acetonide 0.5 % cream 1 appl topical BID Qty: 15 0RF tramadol 50 mg tablet 50 mg PO BID PRN (Reason: pain) Qty: 5 0RF alprazolam [Xanax] 0.5 mg tablet 0.5 mg PO BID PRN (Reason: anxiety) Qty: 20 0RF (DME) FreeStyle Precision Krunal Strips Strip See Rx Instructions .ROUTE DAILY Qty: 10 Rx Instructions: As directed meloxicam 7.5 mg tablet 7.5 mg PO DAILY lorazepam 0.5 mg tablet 0.5 mg PO DAILY PRN hydroxyzine HCl 25 mg tablet 25 mg PO BEDTIME zolpidem [Ambien] 10 mg tablet 10 mg PO BEDTIME PRN quetiapine [Seroquel] 25 mg tablet 25 mg PO BEDTIME fluticasone propionate [Flonase Allergy Relief] 50 mcg/actuation spray,suspension 1 spray intranasal DAILY Rx Instructions: administer into each nostril amitriptyline 25 mg tablet 25 mg PO DAILY lisinopril 10 mg tablet 10 mg PO DAILY albuterol sulfate 90 mcg/actuation HFA aerosol inhaler 2 puff inhalation Q4-5H PRN loratadine [Allergy Relief (loratadine)] 10 mg tablet 10 mg PO DAILY PRN (DME) pen needle, diabetic [BD Ultra-Fine Che Pen Needle] 32 gauge x 5/32 needle See Rx Instructions .ROUTE .MEDSUPPLY Qty: 125 6RF Rx Instructions: As directed four times a day gabapentin 600 mg tablet 600 mg PO TID 30 Days Qty: 90 6RF aspirin 81 mg tablet,delayed release (DR/EC) 81 mg PO DAILY latanoprost 0.005 % drops 1 drp ophthalmic (eye) BEDTIME ferrous gluconate 324 mg (38 mg iron) tablet 324 mg PO DAILY docusate sodium 100 mg capsule 200 mg PO BEDTIME Qty: 180 3RF metoprolol tartrate 25 mg tablet 12.5 mg PO BID calcium carbonate 500 mg calcium (1,250 mg) tablet,chewable 500 mg PO BID famotidine 40 mg tablet 40 mg PO BEDTIME Qty: 30 3RF lansoprazole 30 mg capsule,delayed release(DR/EC) 30 mg PO DAILY Qty: 30 3RF simethicone [Gas Relief (simethicone)] 125 mg capsule 125 mg PO TID-QID PRN (Reason: abdominal distention) Qty: 120 2RF Print Language: Persian
[2024-01-31 18:17] LABS: MANUAL DIFF FLAG NO
[2024-01-31 18:22] LABS: Basophils Absolute Auto 0.1 X10*3/uL (0.0-0.2); Basophils Percent Auto 0.4 % (0-2); Eosinophils Absolute Auto 0.3 X10*3/uL (0.0-0.4); Eosinophils Percent Auto 1.9 % (0-4); Hematocrit 35.4 % (37.0-47.0); Hemoglobin 11.7 g/dl (12.0-16.0); Imm Gran Abs Auto 0.08 X10*3/uL (0.00-0.03); Imm Gran Pct Auto 0.5 % (0.0-0.4); Lymphocytes Absolute Auto 4.4 X10*3/uL (1.2-4.9); Mean Corpuscular HGB Conc 33.1 g/dl (31.0-35.0); Mean Corpuscular Hemoglobin 27.5 pg (27.0-33.0); Mean Corpuscular Volume 83.3 fL (80.0-98.0); Mean Platelet Volume 10.6 fL (9.4-12.3); Monocytes Percent Auto 5.8 % (2-11); Neutrophils Absolute Auto 10.6 x10*3/uL (2.0-8.3); Neutrophils Percent Auto 64.4 % (45-73); Platelet Count 440 X10*3/uL (160-400); Red Blood Count 4.25 X10*6/uL (4.20-5.50); Red Cell Distribution Width 14.1 % (11.0-16.0); White Blood Count 16.4 X10*3/uL (4.8-10.8)
[2024-01-31 18:29] LABS: INTERNATIONAL NORM RATIO 1.2 (0.9-1.1); Prothrombin Time 14.9 SEC (11.1-13.3)
[2024-01-31 18:46] LABS: Alanine Aminotransferase 28 U/L (0-31); Alkaline Phosphatase 58 U/L (39-117); Anion Gap 15 (12-20); Aspartate Amino Transferase 21 U/L (5-31); Bilirubin Total 0.1 mg/dL (0.0-1.0); Blood Urea Nitrogen 10 mg/dL (9-16); Calcium 9.9 mg/dL (8.4-10.2); Carbon Dioxide 24 mmol/L (22-29); Chloride 103 mmol/L (96-108); Creatinine Clr Calc Pharmacy 110.2; Estimated Glomerular Filt Rate > 60; Glucose Random 87 mg/dL (60-115); Magnesium 1.8 mg/dL (1.6-2.6); Sodium 138 mmol/L (135-145); Total Protein 7.9 g/dL (6.5-8.0)
[2024-01-31 22:07] VITALS: BP 140/75; PULSE 79; RESP 16; O2SAT 98
--- NOTE | 2024-01-31 23:38 | MHC.EDTECH ---
THIS PCT FINGERER DR ALCANTARA DURING PATIENT PELVIC EXAM .
[2024-01-31 23:43] VITALS: BP 148/73; PULSE 82; RESP 16; TEMP 36.9; O2SAT 98
[2024-01-31 23:49] VITALS: BP 148/73; PULSE 82; RESP 16; TEMP 36.9; O2SAT 98
== END 2024-01-31 23:51 | disposition home or self-care (01) ==
PROVIDERS: Physician Assistant Medical; Emergency Provider Emergency Medicine; PCP Hospitalist
DX: N92.0 Excessive and frequent menstruation with regular cycle (principal); N93.9 Abnormal uterine and vaginal bleeding, unspecified; E11.9 Type 2 diabetes mellitus without complications; Z79.899 Other long term (current) drug therapy
CPT/HCPCS: 36415; 76830; 76856; 80053; 83735; 85025; 85610; 85730; 99283; 99284

== ENCOUNTER 2024-02-04 01:30 | Emergency (ER) | payer OTHER, SELFPAY ==
[2024-02-04 01:38] VITALS: BP 109/58; BP 132/83; PULSE 78; PULSE 83; RESP 17; TEMP 36.6; O2SAT 97; O2SAT 99; BMI 36.6
--- NOTE | 2024-02-04 02:10 | ECG_ITS ---
Test Reason : ANXIETY Blood Pressure : / mmHG Vent. Rate : 083 BPM Atrial Rate : 083 BPM P-R Int : 184 ms QRS Dur : 088 ms QT Int : 372 ms P-R-T Axes : 044 002 013 degrees QTc Int : 437 ms Sinus rhythm with Fusion complexes Minimal voltage criteria for LVH, may be normal variant ( R in aVL ) Possible Anteroseptal infarct (cited on or before 26-SEP-2016) Abnormal ECG When compared with ECG of 30-NOV-2023 16:17, Fusion complexes are now Present Referred By: Radha Gallegos Electronically Signed By:Dax Suarez
--- NOTE | 2024-02-04 02:10 | ED_ITS ---
HPI - General Adult General Chief complaint: General Medical Stated complaint: crisis Time Seen by Provider: 02/04/24 01:33 Source: patient, family and EMS Mode of arrival: EMS Limitations: no limitations History of Present Illness HPI narrative: Patient comes to the emergency room via ambulance. Patient is Kinyarwanda speaking only, certified court/medical interpreter offered, patient declined, patient would like her son to interpret. Earlier today, there was a family argument today, patient became very anxious and had a panic attack. Patient requesting Ativan. Related Data Home Medications ?Medication ?Instructions ?Recorded ?Confirmed albuterol sulfate 90 mcg/actuation 2 puff inhalation Q4-5H PRN 07/04/20 01/01/22 aerosol inhaler amitriptyline 25 mg tablet 25 mg PO DAILY 07/04/20 01/01/22 fluticasone propionate 50 1 spray intranasal DAILY 07/04/20 01/01/22 mcg/actuation nasal spray,suspension (Flonase Allergy Relief) hydroxyzine HCl 25 mg tablet 25 mg PO BEDTIME 07/04/20 01/01/22 lisinopril 10 mg tablet 10 mg PO DAILY 07/04/20 01/01/22 lorazepam 0.5 mg tablet 0.5 mg PO DAILY PRN 07/04/20 01/01/22 quetiapine 25 mg tablet (Seroquel) 25 mg PO BEDTIME 07/04/20 05/02/21 zolpidem 10 mg tablet (Ambien) 10 mg PO BEDTIME PRN 07/04/20 01/01/22 blood sugar diagnostic #10 ea 07/15/20 01/01/22 loratadine 10 mg tablet (Allergy 10 mg PO DAILY PRN 12/16/20 01/01/22 Relief (loratadine)) meloxicam 7.5 mg tablet 7.5 mg PO DAILY 05/02/21 01/01/22 aspirin 81 mg tablet,delayed 81 mg PO DAILY 11/22/23 release calcium carbonate 500 mg PO BID 11/22/23 ferrous gluconate 324 mg (38 mg 324 mg PO DAILY 11/22/23 iron) tablet latanoprost 0.005 % eye drops 1 drp ophthalmic (eye) BEDTIME 11/22/23 metoprolol tartrate 25 mg tablet 12.5 mg PO BID 11/22/23 Previous Rx's ?Medication ?Instructions ?Recorded blood sugar diagnostic (FreeStyle 1 strip miscellaneous .qd 90 days 06/26/21 Lite Strips) #100 strips glucose 4 gram chewable tablet 12 g (3 x 4 gram) PO Q15M PRN 06/26/21 (Dex4 Glucose) hypoglycemia 90 days #60 tabs pen needle, diabetic 32 gauge x #150 ea 06/26/21 cholecalciferol (vitamin D3) 50 50 mcg PO DAILY #30 caps 10/09/21 mcg (2,000 unit) capsule gabapentin 600 mg tablet 600 mg PO TID 30 days #90 tabs 01/01/22 pen needle, diabetic 32 gauge x #125 ea 01/01/22 (BD Ultra-Fine Che Pen Needle) insulin glargine 100 unit/mL (3 32 unit (0.32 mL) subcut QAM 90 02/12/22 mL) subcutaneous pen ( days #28.8 mL Solostar U-100 Insulin) triamcinolone acetonide 0.5 % 1 appl topical BID apply to rash 03/20/22 topical cream on chest #15 grams flash glucose sensor (FreeStyle 1 ea topical Q2W 90 days #6 ea 04/28/22 Sal 14 Day Sensor kit) insulin lispro 100 unit/mL See Rx Instructions subcut TID #15 07/02/22 subcutaneous pen mL metformin 1,000 mg tablet 1,000 mg PO BID 30 days #60 tabs 08/25/22 tramadol 50 mg tablet 50 mg PO BID PRN pain #5 tabs 04/27/23 docusate sodium 100 mg capsule 200 mg (2 x 100 mg) PO BEDTIME 11/22/23 #180 caps alprazolam 0.5 mg tablet (Xanax) 0.5 mg PO BID PRN anxiety #20 tabs 11/30/23 famotidine 40 mg tablet 40 mg PO BEDTIME #30 tabs 12/22/23 lansoprazole 30 mg capsule,delayed 30 mg PO DAILY #30 caps 12/22/23 release simethicone 125 mg capsule (Gas 125 mg PO TID-QID PRN abdominal 12/22/23 Relief (simethicone)) distention #120 caps bismuth subsalicylate 262 mg 2 tab PO QID diarrhea 14 days #112 01/21/24 chewable tablet tabs metronidazole 500 mg tablet 1,000 mg (2 x 500 mg) PO BID #56 01/21/24 tabs tetracycline 500 mg capsule 1,000 mg (2 x 500 mg) PO Q12H #56 01/21/24 caps tranexamic acid 650 mg tablet 1,300 mg (2 x 650 mg) PO TID 5 01/31/24 days #30 tabs Allergies Allergy/AdvReac Type Severity Reaction Status Date / Time No Known Allergies Allergy Verified 02/04/24 01:41 Review of Systems Review of Systems: Constitutional : No Weight loss, No Fever, No Chills, No Night Sweats, No Fatigue, No Malaise ENT/Mouth : No Hearing loss, No Ear Pain, No Nasal Congestion, No Sinus Pain, No Hoarseness, No sore throat, No Rhinorrhea, No Swallowing Difficulty Eyes: No Eye Pain, No Swelling, No Redness, No Foreign Body, No Discharge, No Vision Changes Cardiovascular : No Chest Pain, No SOB, No Dyspnea on Exertion, No Orthopnea, No Edema, No Palpitations Respiratory : No Cough, No Sputum, No Wheezing, No Smoke Exposure, No Dyspnea Gastrointestinal : Mild epigastric discomfort, known to have H pylori. No Nausea, No Vomiting, No Diarrhea, No Constipation, No abdominal Pain, No Hematochezia, No Melena Genitourinary : no irregular bleeding, No Dysuria, No Urinary Frequency, No Hematuria, No Urinary Incontinence, No Urgency, No Flank Pain, No Urinary Flow Changes, No Hesitancy Musculoskeletal : No joint pain, No Myalgias, No Joint Swelling Skin : No Skin Lesions, No rash Neuro : No Weakness, No Numbness, No Paresthesias, No Loss of Consciousness, No Dizziness, No Headache Psych : Complaining of anxiety, panic attack earlier today, No Depression, No SI/HI/AH/VH, No Social Issues, Heme/Lymph: No Bruising, No Bleeding,No Lymphadenopathy Endocrine : No Polyuria, No Polydipsia, No Temperature Intolerance PMFSH Past Medical History Medical History Acid indigestion Back pain Palpitations Leukocytosis Depression Anxiety Asthma Migraine Type 2 diabetes mellitus with polyneuropathy Type 2 diabetes mellitus with hyperglycemia, with long-term current use of insulin Essential hypertension Vitamin D insufficiency Surgical History Hx of mammogram Hx of section Family History Family History Father Hypertension Diabetes Heart disease Mother Diabetes Heart disease Hypertension Social History Social History Household Members: Family and Children Alcohol intake: current Alcohol intake frequency: does not drink Patient Tobacco Use Status: Never used Tobacco Advance Directives: No Advance Directives Information Provided: No Do you have a plan to hurt others: No Plan Physical Exam ED Vital Signs: Vital Signs - 24 hr 02/04/24 01:38 Temperature 97.8 F Pulse Rate 78 Respiratory Rate 17 Blood Pressure 109/58 L Pulse Oximetry 97 Oxygen Delivery Method Room Air BMI result Body Mass Index 36.6 Const Other: Appearance: Alert. Oriented X3. No acute distress. Eyes: Pupils equal, round and reactive to light. ENT: Pharynx normal. Neck: Normal inspection. Neck supple. No lymph nodes noted. No crepitus CVS: Normal heart rate and rhythm. Pulses normal. Normal S1 and S2 Respiratory: No respiratory distress. Breath sounds normal. No Wheezing. No rales Abdomen: Soft and nontender. No rigidity. No distention. Skin: Skin warm and dry. Normal skin color. Normal skin turgor. Extremities: No lower extremity edema. No Lacerations. No Rash Neuro: Oriented X 3. No motor deficit. No sensory deficit. Moving all extremities. No slurred speech. CN 2 through 12 grossly intact Psych: calm, cooperative, normal affect Course Course Course Narrative: Patient states that overall she feels better, patient had a panic attack due to a home argument. According to the patient and family who is at bedside, there was no physical altercation. Medications Administered Discontinued Medications Generic Name Dose Route Start Last Admin Trade Name Freq PRN Reason Stop Dose Admin Lorazepam 2 mg 02/04/24 02:10 02/04/24 02:22 Lorazepam 1 Mg Tablet PO 02/04/24 02:11 2 mg ONCE ONE Administration Medical Decision Making Medical Decision Making [facility] Narrative: My interpretation of EKG, sinus rhythm, heart rate 83, no ST segment depression or elevation, nonspecific T-wave inversion in lead 3, QTC 437 -patient received a dose of Ativan, patient overall feeling better -patient's family at bedside, patient overall feels much better. Differential Diagnosis Differential Diagnoses: The differential diagnosis associated with the presentation includes (Anxiety, panic attack) Discharge Plan Discharge Clinical Impression: Anxiety Patient Disposition: Home, Self-Care Instructions: Anxiety (ED) Additional Instructions: Please follow-up with your primary care physician tomorrow. If you have any worsening or new symptoms, please return to the emergency room or call 911 Prescriptions: No Action FreeStyle Lite Strips Strip 1 strip miscellaneous .qd 90 Days Qty: 100 10RF glucose [Dex4 Glucose] 4 gram tablet,chewable 12 g PO Q15M PRN (Reason: hypoglycemia) 90 Days Qty: 60 3RF Rx Instructions: until symptoms of low blood sugar are controlled (DME) pen needle, diabetic 32 gauge x 5/32 needle See Rx Instructions subcut .MEDSUPPLY Qty: 150 11RF Rx Instructions: Once a day cholecalciferol (vitamin D3) 50 mcg (2,000 unit) capsule 50 mcg PO DAILY Qty: 30 11RF Lantus Solostar U-100 Insulin 100 unit/mL (3 mL) insulin pen 32 unit subcut QAM 90 Days Qty: 28.8 1RF FreeStyle Sal 14 Day Sensor Kit 1 ea topical Q2W 90 Days Qty: 6 11RF insulin lispro 100 unit/mL insulin pen See Rx Instructions subcut TID Qty: 15 5RF Rx Instructions: 4 units before breakfast and dinner and 6 units before lunch subcut 3 times a day; 4 units before breakfast and dinner and 6 units before lunch subcut 3 times a day; subcutaneously 3 times a day; metformin 1,000 mg tablet 1,000 mg PO BID 30 Days Qty: 60 0RF Rx Instructions: FUTURE REFILLS FROM PCP. tetracycline 500 mg capsule 1,000 mg PO Q12H Qty: 56 0RF metronidazole 500 mg tablet 1,000 mg PO BID Qty: 56 0RF bismuth subsalicylate 262 mg tablet,chewable 2 tab PO QID 14 Days Qty: 112 0RF triamcinolone acetonide 0.5 % cream 1 appl topical BID Qty: 15 0RF tramadol 50 mg tablet 50 mg PO BID PRN (Reason: pain) Qty: 5 0RF alprazolam [Xanax] 0.5 mg tablet 0.5 mg PO BID PRN (Reason: anxiety) Qty: 20 0RF tranexamic acid 650 mg tablet 1,300 mg PO TID 5 Days Qty: 30 0RF (DME) FreeStyle Precision Krunal Strips Strip See Rx Instructions .ROUTE DAILY Qty: 10 Rx Instructions: As directed meloxicam 7.5 mg tablet 7.5 mg PO DAILY lorazepam 0.5 mg tablet 0.5 mg PO DAILY PRN hydroxyzine HCl 25 mg tablet 25 mg PO BEDTIME zolpidem [Ambien] 10 mg tablet 10 mg PO BEDTIME PRN quetiapine [Seroquel] 25 mg tablet 25 mg PO BEDTIME fluticasone propionate [Flonase Allergy Relief] 50 mcg/actuation spray,suspension 1 spray intranasal DAILY Rx Instructions: administer into each nostril amitriptyline 25 mg tablet 25 mg PO DAILY lisinopril 10 mg tablet 10 mg PO DAILY albuterol sulfate 90 mcg/actuation HFA aerosol inhaler 2 puff inhalation Q4-5H PRN loratadine [Allergy Relief (loratadine)] 10 mg tablet 10 mg PO DAILY PRN (DME) pen needle, diabetic [BD Ultra-Fine Che Pen Needle] 32 gauge x 5/32 needle See Rx Instructions .ROUTE .MEDSUPPLY Qty: 125 6RF Rx Instructions: As directed four times a day gabapentin 600 mg tablet 600 mg PO TID 30 Days Qty: 90 6RF aspirin 81 mg tablet,delayed release (DR/EC) 81 mg PO DAILY latanoprost 0.005 % drops 1 drp ophthalmic (eye) BEDTIME ferrous gluconate 324 mg (38 mg iron) tablet 324 mg PO DAILY docusate sodium 100 mg capsule 200 mg PO BEDTIME Qty: 180 3RF metoprolol tartrate 25 mg tablet 12.5 mg PO BID calcium carbonate 500 mg calcium (1,250 mg) tablet,chewable 500 mg PO BID famotidine 40 mg tablet 40 mg PO BEDTIME Qty: 30 3RF lansoprazole 30 mg capsule,delayed release(DR/EC) 30 mg PO DAILY Qty: 30 3RF simethicone [Gas Relief (simethicone)] 125 mg capsule 125 mg PO TID-QID PRN (Reason: abdominal distention) Qty: 120 2RF Print Language: Kinyarwanda
[2024-02-04] MEDS: LORazepam 1 MG TABLET 2 MG PO (02:22)
[2024-02-04 03:30] VITALS: BP 102/60; PULSE 69; RESP 16; TEMP 36.6; O2SAT 98
== END 2024-02-04 03:30 | disposition home or self-care (01) ==
PROVIDERS: Emergency Provider Emergency Medicine; PCP Hospitalist
DX: F41.0 Panic disorder [episodic paroxysmal anxiety] (principal); F41.1 Generalized anxiety disorder; R94.31 Abnormal electrocardiogram [ECG] [EKG]; Z79.899 Other long term (current) drug therapy
CPT/HCPCS: 93005; 99283; 99284

== ENCOUNTER → 2024-02-04 02:10 | Outpatient (BNV) | payer OTHER, SELFPAY | PROVIDERS: Emergency Provider Emergency Medicine; PCP Hospitalist; Visit Provider Internal Medicine Cardiovascular Disease | DX: R94.31 Abnormal electrocardiogram [ECG] [EKG] (principal) | CPT/HCPCS: 93010 ==

== ENCOUNTER 2024-02-23 10:41 | Outpatient (AMB) | payer OTHER, SELFPAY ==
--- NOTE | 2024-02-23 10:44 | MHC.OFFVIS ---
Vital Signs 02/23/24 10:47 Height 5 ft 4 in Weight 200 lb 9.93 oz BMI 34.4 BP 111/63 Blood Pressure Location Lt brachial Position Sitting Pulse 72 Intake Visit Reasons: f/u prior to procedure Intake Note: Ele presents in the office as a follow up. CC: discuss having procedure. has follow up for procedure but I do not see that she is scheduled. Daughter states that it is 04/12/24. 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 Staying upright for minimum patient. Patient will stop Nexium and start lansoprazole. Patient can also take famotidine at bedtime. Patient was instructed to stay upright for minimal 3 hours after meals. We will rule out pancreatic insufficiency and H pylori. Patient will be sent for upper endoscopy. I will also send her for ultrasound to rule out cholelithiasis, cholecystitis. I will see patient few weeks before the procedure, sooner on as needed basis. Patient is is agreeable to plan of care and verbalizes understanding of instructions. She was given the opportunity to ask questions and all questions answered. ? Thank you for allowing me to participate in her care Orders Orders H pylori Ag Stool Today K21.9 Pancreatic Elastase-1 Today R10.9 US abdomen complete Today R10.9 Medications New lansoprazole 30 mg PO DAILY 30 caps 3RF K21.9 famotidine 40 mg PO BEDTIME 30 tabs 3RF K21.9 simethicone (Gas Relief (simethicone)) 125 mg PO TID-QID PRN 120 caps 2RF abdominal distention Discontinued esomeprazole magnesium (Nexium) Discontinued Reason: Doctor's Order 40 mg PO DAILY 30 caps 5RF K21.9 Patient is here today for follow-up and to discuss ultrasound results and lab results. Patient was diagnosed with H pylori and was placed on quadruple treatment for 2 weeks. Patient states that she finished all of her treatment. Reports that she is feeling much better. However patient states that she had to go to ER couple times for epigastric and chest pain. Patient is taking lansoprazole in the morning and famotidine at bedtime. Patient reports that she is moving her bowels well now. Patient has not booked upper endoscopy or colonoscopy yet. Agreeing to colonoscopy and endoscopy and will book the procedure today. [facility] Medical History Acid indigestion Back pain Palpitations Leukocytosis Depression Anxiety Asthma Migraine Type 2 diabetes mellitus with polyneuropathy Type 2 diabetes mellitus with hyperglycemia, with long-term current use of insulin Essential hypertension Vitamin D insufficiency Surgical History Hx of mammogram Hx of section Family History Father Hypertension Diabetes Heart disease Mother Diabetes Heart disease Hypertension Social History Household Members: Family and Children Alcohol intake: current Alcohol intake frequency: does not drink Patient Tobacco Use Status: Never used Tobacco Review of Systems Const Denies weight gain and Denies weight loss ENT Reports no additional complaints, Denies dysphagia and Denies odynophagia Card Reports no additional complaints Resp Reports no additional complaints GI Denies abdominal pain, Denies belching, Denies melena, Denies bloating, Denies change in bowel habits, Denies dysphagia, Denies excessive flatus, Denies dyspepsia, Reports heartburn (Occasional), Denies diarrhea, Denies loose stools, Denies nausea, Denies odynophagia and Denies vomiting Reports no additional complaints Musc Reports no additional complaints Neuro Reports no additional complaints Psych Reports no additional complaints Endo Reports no additional complaints Physical Exam Vital Signs: Last Vital Signs Pulse 72 02/23/24 10:47 BP 111/63 02/23/24 10:47 BMI result Body Mass Index 34.4 Const General: healthy appearing and no acute distress Nutritional Appearance: obese Orientation/consciousness: patient oriented x3 Resp Effort & Inspection: normal respiratory effort, able to speak in complete sentences, no tracheal deviation and symmetric chest movement Auscultation: clear to auscultation bilaterally Cardio Rate: regular rate GI Inspection: Yes normal to inspection, No distended and Yes obesity Palpation (GI): Soft to palpation, not firm, nontender and No hepatosplenomegaly present Auscultation: normal bowel sounds General: Yes no CVA tenderness Back/Spine/Pelvis Back: no CVA tenderness Skin General skin exam: elasticity normal, turgor normal and dry skin Neuro General: patient oriented x3 Psych Appearance: grossly normal Mental Status: mental status grossly normal Results Reviewed Results Reviewed: FINDINGS: PANCREAS: Limited visualization of pancreatic tail and head. Imaged portion of pancreatic body is unremarkable. ABDOMINAL AORTA: Limited visualization. INFERIOR VENA CAVA: Visualized portions are normal. LIVER: Hepatomegaly. Increased hepatic parenchymal heterogeneity and echogenicity could be associated with hepatocellular disease/hepatic steatosis and severely limits visualization. Hypoechoic areas within the liver adjacent to the gallbladder are characteristic of focal sparing within a fatty liver. Correlation with liver function tests and clinical exam recommended to determine further management. GALLBLADDER: No gallbladder wall thickening. 1.8 x 1.1 x 1.2 cm echogenic focus within the gallbladder characteristic of a gallstone. COMMON BILE DUCT: Normal in caliber measuring 0.6 cm in diameter. RIGHT KIDNEY: Mild right hydronephrosis. No renal calculi. Limited visualization. The kidney measures 11.0 cm in maximum dimension. LEFT KIDNEY: No hydronephrosis. No renal calculi. Limited visualization. The kidney measures 11.7 cm in maximum dimension. SPLEEN: Normal. The spleen measures 11.0 cm in maximum dimension. FREE FLUID: None. US/US abdomen complete IMPRESSION: 1. Hepatomegaly. Increased hepatic parenchymal heterogeneity and echogenicity could be associated with hepatocellular disease/hepatic steatosis and severely limits visualization. Hypoechoic areas within the liver adjacent to the gallbladder are characteristic of focal sparing within a fatty liver. Correlation with liver function tests and clinical exam recommended to determine further management. 2. A 1.8 cm echogenic focus in the gallbladder characteristic of a gallstone. Limited visualization due to bowel gas. Laboratory Tests 01/20/24 01/31/24 11:30 18:11 AST 21 ALT 28 Alkaline Phosphatase 58 Stool Pancreat Elastase >500 Stool H. pylori Ag SEE NOTE A Assessment & Plan Assessment & Plan (1) Postprandial epigastric pain: Code(s): R10.13 - Epigastric pain (2) Postprandial abdominal bloating: Code(s): R14.0 - Abdominal distension (gaseous) (3) Constipation: Code(s): K59.00 - Constipation, unspecified Qualifiers: Constipation type: slow transit constipation Qualified Code(s): K59.01 - Slow transit constipation (4) Dyspepsia: Code(s): R10.13 - Epigastric pain (5) IBS (irritable bowel syndrome): Code(s): K58.9 - Irritable bowel syndrome without diarrhea Qualifiers: Irritable bowel syndrome type: without diarrhea Qualified Code(s): K58.9 - Irritable bowel syndrome without diarrhea (6) Helicobacter pylori (H. pylori): Code(s): A04.8 - Other specified bacterial intestinal infections Plan Continue lansoprazole and famotidine. Avoid dietary triggers and late night snacking. Patient admits to have occasional postprandial abdominal bloating related most likely to food. Patient does admit that after she eats onions or garlic she will be bloated. Avoid dietary triggers. Continue low FODMAP diet. Patient has appointment in March with me. We will discuss going for endoscopy and colonoscopy. Patient will call our office if she will have any GI concerning symptoms. She is agreeable to this plan and verbalizes understanding of instructions. She was given the opportunity to ask questions and all questions answered. Thank you for allowing me to participate in her care Medications: Refilled lansoprazole 30 mg PO DAILY 90 caps 3RF K21.9 - Gastro-esophageal reflux disease without esophagitis famotidine 40 mg PO BEDTIME 90 tabs 3RF K21.9 - Gastro-esophageal reflux disease without esophagitis Discontinued tetracycline Discontinued Reason: Patient Completed Course 1,000 mg (2 x 500 mg) PO Q12H 56 caps 0RF A04.8 - Other specified bacterial intestinal infections bismuth subsalicylate Discontinued Reason: Patient Completed Course 2 tabs PO QID 14 days 112 tabs 0RF diarrhea A04.8 - Other specified bacterial intestinal infections metronidazole Discontinued Reason: Patient Completed Course 1,000 mg (2 x 500 mg) PO BID 56 tabs 0RF A04.8 - Other specified bacterial intestinal infections Coding Level of Care Code Est Pt Level 4 (59921) Diagnoses Postprandial epigastric pain R10.13 Postprandial abdominal bloating R14.0 Slow transit constipation K59.01 Constipation type: slow transit constipation Dyspepsia R10.13 Irritable bowel syndrome without diarrhea K58.9 Irritable bowel syndrome type: without diarrhea Helicobacter pylori (H. pylori) A04.8 Time Spent (min) 35 Comment 20 minutes spent with patient and additional 15 minutes her records
[2024-02-23 10:47] VITALS: BP 111/63; PULSE 72; BMI 34.4
== END 2024-02-23 11:19 | disposition home or self-care (01) ==
PROVIDERS: PCP Hospitalist; Visit Provider Nurse Practitioner Family
DX: R10.13 Epigastric pain (principal); R14.0 Abdominal distension (gaseous); K59.01 Slow transit constipation; K58.9 Irritable bowel syndrome, unspecified; A04.8 Other specified bacterial intestinal infections
CPT/HCPCS: 99214

== ENCOUNTER → 2024-02-23 10:41 | Outpatient (BNVA) | payer OTHER, SELFPAY | PROVIDERS: PCP Hospitalist; Visit Provider Nurse Practitioner Family | DX: K59.01 Slow transit constipation (principal); K58.9 Irritable bowel syndrome, unspecified; R10.13 Epigastric pain; R14.0 Abdominal distension (gaseous); A04.8 Other specified bacterial intestinal infections | CPT/HCPCS: 99212 ==

== ENCOUNTER 2024-07-09 21:38 | Emergency (ER) | payer OTHER, SELFPAY ==
--- NOTE | ~2024-07-09 | US_ITS ---
EXAMINATION: US ABDOMEN LIMITED CLINICAL INFORMATION: Epigastric pain.. COMPARISON: None available. TECHNIQUE: Real-time imaging of the right upper quadrant abdominal viscera. FINDINGS: PANCREAS: Not imaged. LIVER: Visualized portions of the liver are unremarkable. GALLBLADDER: There is a prominent gallstone measuring up to 1.7 cm. There is also a small amount of faintly echogenic layering and mobile material within the gallbladder consistent with sludge. COMMON BILE DUCT: Normal in caliber measuring 0.5 cm in diameter. RIGHT KIDNEY: Not imaged. FREE FLUID: None. US/US abdomen limited IMPRESSION: Cholelithiasis and gallbladder sludge without evidence of acute cholecystitis. Electronically signed by: Antoine Fermin MD 07/10/2024 04:05 AM EDT
[2024-07-09 21:43] VITALS: BP 159/69; PULSE 77; RESP 18; TEMP 36.6; O2SAT 100; BMI 33.7
[2024-07-09 22:04] LABS: MANUAL DIFF FLAG NO
[2024-07-09 22:12] LABS: Basophils Absolute Auto 0.1 X10*3/uL (0.0-0.2); Basophils Percent Auto 0.5 % (0-2); Eosinophils Absolute Auto 0.2 X10*3/uL (0.0-0.4); Eosinophils Percent Auto 1.2 % (0-4); Hematocrit 28.2 % (37.0-47.0); Hemoglobin 8.1 g/dl (12.0-16.0); Imm Gran Abs Auto 0.11 X10*3/uL (0.00-0.03); Imm Gran Pct Auto 0.6 % (0.0-0.4); Lymphocytes Absolute Auto 3.8 X10*3/uL (1.2-4.9); Lymphocytes Percent Auto 21.5 % (20-40); Mean Corpuscular HGB Conc 28.7 g/dl (31.0-35.0); Mean Platelet Volume 10.1 fL (9.4-12.3); Monocytes Absolute Auto 1.1 X10*3/uL (0.1-1.2); Monocytes Percent Auto 6.4 % (2-11); Neutrophils Absolute Auto 12.4 x10*3/uL (2.0-8.3); Neutrophils Percent Auto 69.8 % (45-73); Platelet Count 490 X10*3/uL (160-400); Red Blood Count 4.27 X10*6/uL (4.20-5.50); Red Cell Distribution Width 17.5 % (11.0-16.0); White Blood Count 17.7 X10*3/uL (4.8-10.8)
[2024-07-09 22:25] LABS: Alanine Aminotransferase 14 U/L (0-31); Albumin Level 3.8 g/dL (3.5-5.0); Alkaline Phosphatase 82 U/L (39-117); Anion Gap 13 (12-20); Aspartate Amino Transferase 10 U/L (5-31); Bilirubin Direct < 0.2 mg/dL (0.0-0.5); Bilirubin Total 0.1 mg/dL (0.0-1.0); Blood Urea Nitrogen 9 mg/dL (9-16); Calcium 9.5 mg/dL (8.4-10.2); Carbon Dioxide 25 mmol/L (22-29); Chloride 103 mmol/L (96-108); Creatinine Clr Calc Pharmacy 97.9; Estimated Glomerular Filt Rate > 60; Glucose Random 239 mg/dL (60-115); Lipase 44 U/L (8-78); Potassium 4.1 mmol/L (3.3-5.1); Sodium 137 mmol/L (135-145); Total Protein 7.5 g/dL (6.5-8.0)
--- NOTE | 2024-07-10 01:15 | ECG_ITS ---
Test Reason : EVAL Blood Pressure : / mmHG Vent. Rate : 066 BPM Atrial Rate : 066 BPM P-R Int : 184 ms QRS Dur : 078 ms QT Int : 402 ms P-R-T Axes : 005 020 029 degrees QTc Int : 421 ms Normal sinus rhythm Low voltage QRS Cannot rule out Anterior infarct (cited on or before 26-SEP-2016) Abnormal ECG When compared with ECG of 04-FEB-2024 02:36, Questionable change in initial forces of Septal leads Referred By: Reid Corrigan Electronically Signed By:DELISA POLLARD
--- NOTE | 2024-07-10 02:13 | ED.ABDPAIN ---
HPI - Abdominal Pain General Chief Complaint: Abdominal Pain Stated Complaint: gallstones Time Seen by Provider: 07/10/24 02:09 Source: patient Mode of arrival: ambulatory Limitations: no limitations History of Present Illness ED Provider: shelley GLOVER narrative: Patient is Hebrew speaking with history of menorrhagia and gallstone comes here for of epigastric pain followed by nausea after eating pizza. Also patient having heavy menstrual periods lasting than 10 days getting iron tablets lab workup done prior to my evaluation showed hemoglobin of 8.1 with hematocrit 28.2 as compared to 11.7 and 35.4 in 02/17 patient does feel weak patient claims that she take ferrous sulfate tablets daily and does have history of constipation pain in abdomen was getting better patient does not have a surgeon or manager of financial planning to follow up. Denies any urinary symptoms Related Data Home Medications ?Medication ?Instructions ?Recorded ?Confirmed albuterol sulfate 90 mcg/actuation 2 puff inhalation Q4-5H PRN 07/04/20 06/13/24 aerosol inhaler Shortness Of Breath amitriptyline 25 mg tablet 25 mg PO DAILY 07/04/20 06/13/24 fluticasone propionate 50 1 spray intranasal DAILY 07/04/20 06/13/24 mcg/actuation nasal spray,suspension (Flonase Allergy Relief) hydroxyzine HCl 25 mg tablet 25 mg PO BEDTIME 07/04/20 06/13/24 lisinopril 10 mg tablet 10 mg PO DAILY 07/04/20 06/13/24 quetiapine 25 mg tablet (Seroquel) 25 mg PO BEDTIME 07/04/20 06/13/24 zolpidem 10 mg tablet (Ambien) 10 mg PO BEDTIME PRN Insomnia 07/04/20 06/13/24 blood sugar diagnostic #10 ea 07/15/20 01/01/22 loratadine 10 mg tablet (Allergy 10 mg PO DAILY PRN Allergy Symptoms 12/16/20 06/13/24 Relief (loratadine)) meloxicam 7.5 mg tablet 7.5 mg PO DAILY 05/02/21 06/13/24 aspirin 81 mg tablet,delayed 81 mg PO DAILY 11/22/23 06/13/24 release calcium carbonate 500 mg PO BID 11/22/23 06/13/24 ferrous gluconate 324 mg (38 mg 324 mg PO DAILY 11/22/23 06/13/24 iron) tablet latanoprost 0.005 % eye drops 1 drp ophthalmic (eye) BEDTIME 11/22/23 06/13/24 metoprolol tartrate 25 mg tablet 12.5 mg PO BID 11/22/23 06/13/24 Previous Rx's ?Medication ?Instructions ?Recorded blood sugar diagnostic (FreeStyle 1 strip miscellaneous .qd 90 days 06/26/21 Lite Strips) #100 strips glucose 4 gram chewable tablet 12 g (3 x 4 gram) PO Q15M PRN 06/26/21 (Dex4 Glucose) hypoglycemia 90 days #60 tabs pen needle, diabetic 32 gauge x #150 ea 06/26/21 cholecalciferol (vitamin D3) 50 50 mcg PO DAILY #30 caps 10/09/21 mcg (2,000 unit) capsule gabapentin 600 mg tablet 600 mg PO TID 30 days #90 tabs 01/01/22 pen needle, diabetic 32 gauge x #125 ea 01/01/22 (BD Ultra-Fine Che Pen Needle) insulin glargine 100 unit/mL (3 32 unit (0.32 mL) subcut QAM 90 02/12/22 mL) subcutaneous pen ( days #28.8 mL Solostar U-100 Insulin) triamcinolone acetonide 0.5 % 1 appl topical BID apply to rash 03/20/22 topical cream on chest #15 grams flash glucose sensor (FreeStyle 1 ea topical Q2W 90 days #6 ea 04/28/22 Sal 14 Day Sensor kit) insulin lispro 100 unit/mL See Rx Instructions subcut TID #15 07/02/22 subcutaneous pen mL metformin 1,000 mg tablet 1,000 mg PO BID 30 days #60 tabs 08/25/22 tramadol 50 mg tablet 50 mg PO BID PRN pain #5 tabs 04/27/23 docusate sodium 100 mg capsule 200 mg (2 x 100 mg) PO BEDTIME 11/22/23 #180 caps alprazolam 0.5 mg tablet (Xanax) 0.5 mg PO BID PRN anxiety #20 tabs 11/30/23 simethicone 125 mg capsule (Gas 125 mg PO TID-QID PRN abdominal 12/22/23 Relief (simethicone)) distention #120 caps tranexamic acid 650 mg tablet 1,300 mg (2 x 650 mg) PO TID 5 01/31/24 days #30 tabs lorazepam 1 mg tablet (Ativan) 1 mg PO BID PRN anxiety #4 tabs 02/04/24 famotidine 40 mg tablet 40 mg PO BEDTIME #90 tabs 02/23/24 lansoprazole 30 mg capsule,delayed 30 mg PO DAILY #90 caps 02/23/24 release bisacodyl 5 mg tablet,delayed 20 mg (4 x 5 mg) PO .once #4 tabs 06/13/24 release (Dulcolax (bisacodyl)) polyethylene glycol 3350 17 238 g PO .COMPLEX 1 day #238 grams 06/13/24 gram/dose oral powder (Miralax) ferrous gluconate 324 mg (37.5 mg 324 mg PO BID #60 tabs 07/10/24 iron) tablet polyethylene glycol 3350 17 17 g PO DAILY #510 grams 07/10/24 gram/dose oral powder (Miralax) Allergies Allergy/AdvReac Type Severity Reaction Status Date / Time No Known Allergies Allergy Verified 07/09/24 21:44 Review of Systems Review of Systems Yes all other systems are reviewed and are negative PMFSH Past Medical History Medical History Acid indigestion Back pain Palpitations Leukocytosis Depression Anxiety Asthma Migraine Type 2 diabetes mellitus with polyneuropathy Type 2 diabetes mellitus with hyperglycemia, with long-term current use of insulin Essential hypertension Vitamin D insufficiency Surgical History Hx of section Family History Family History Father Hypertension Diabetes Heart disease Mother Diabetes Heart disease Hypertension Social History Social History Household Members: Family and Children Alcohol intake: current Alcohol intake frequency: does not drink Patient Tobacco Use Status: Never used Tobacco Advance Directives: No Advance Directives Information Provided: Yes Do you have a plan to hurt others: No Plan Physical Exam ED Vital Signs: Vital Signs - 24 hr 07/09/24 21:43 07/10/24 02:49 Temperature 97.8 F 98.4 F Pulse Rate 77 66 Respiratory Rate 18 16 Blood Pressure 159/69 H 111/56 L Pulse Oximetry 100 99 Oxygen Delivery Method Room Air Room Air BMI result Body Mass Index 33.7 Appearance: Alert. Oriented X3. No acute distress. Eyes: Pallor++ ENT: Pharynx normal. Oral Mucosa moist Neck: Normal inspection. Neck supple. CVS: Normal heart rate and rhythm. Pulses normal. Respiratory: No respiratory distress. Equal air entry bilateral, no wheezing/rales/rhonchi Abdomen: Soft and mild epigastric tenderness. Bowel sounds are present, no mass palpable, no CVA tenderness Skin: Skin warm and dry. Normal skin color. Normal skin turgor. Extremities: No lower extremity edema. No calf tenderness Neuro: Oriented X 3. No motor deficit. No sensory deficit.No cerebellar signs , cranial nerves II-XII intact Medical Decision Making Medical Decision Making MDM Narrative: Patient's gallstone with without any finding of cholecystitis and ultrasound pain-free at this time advised to follow with horticultural farm manager Lab Data [facility] Lab Attestation statement: I reviewed the patient's lab results. 07/09/24 22:01 07/09/24 22:01 Labs: Lab Results 07/09/24 07/10/24 Range/Units 22:01 01:45 WBC 17.7 H (4.8-10.8) X10*3/uL RBC 4.27 (4.20-5.50) X10*6/uL Hgb 8.1 L D (12.0-16.0) g/dl Hct 28.2 L D (37.0-47.0) % MCV 66.0 L (80.0-98.0) fL MCH 19.0 L (27.0-33.0) pg MCHC 28.7 L (31.0-35.0) g/dl RDW 17.5 H (11.0-16.0) % Plt Count 490 H (160-400) X10*3/uL MPV 10.1 (9.4-12.3) fL Immature Gran % (Auto) 0.6 H (0.0-0.4) % Neut % (Auto) 69.8 (45-73) % Lymph % (Auto) 21.5 (20-40) % [place] % (Auto) 6.4 (2-11) % Eos % (Auto) 1.2 (0-4) % Baso % (Auto) 0.5 (0-2) % Lymph # (Auto) 3.8 (1.2-4.9) X10*3/uL [place] # (Auto) 1.1 (0.1-1.2) X10*3/uL Eos # (Auto) 0.2 (0.0-0.4) X10*3/uL Baso # (Auto) 0.1 (0.0-0.2) X10*3/uL Abs Immat Gran (auto) 0.11 H (0.00-0.03) X10*3/uL Absolute Neuts (auto) 12.4 H (2.0-8.3) x10*3/uL Absolute Nucleated RBC 0.000 (0.0-0.012) X10*3/uL Nucleated RBC % (auto) 0.0 (0.0-0.2) /100WBC Sodium 137 (135-145) mmol/L Potassium 4.1 (3.3-5.1) mmol/L Chloride 103 (96-108) mmol/L Carbon Dioxide 25 (22-29) mmol/L Anion Gap 13 (12-20) BUN 9 (9-16) mg/dL Creatinine 0.70 (0.5-1.4) mg/dL Estim Creat Clear Calc 97.9 Estimated GFR > 60 Random Glucose 239 H (60-115) mg/dL Calcium 9.5 (8.4-10.2) mg/dL Iron 14 L (30-160) mcg/dL TIBC 337 (228-428) mcg/dL % Saturation 4 L (15-50) % Unsat Iron Binding 323 ug/dL Total Bilirubin 0.1 (0.0-1.0) mg/dL Direct Bilirubin < 0.2 (0.0-0.5) mg/dL AST 10 (5-31) U/L ALT 14 (0-31) U/L Alkaline Phosphatase 82 (39-117) U/L Total Protein 7.5 (6.5-8.0) g/dL Albumin 3.8 (3.5-5.0) g/dL Lipase 44 (8-78) U/L Blood Type B Positive Antibody Screen NEGATIVE Discharge Plan Discharge Clinical Impression: Gallstone, Iron deficiency anemia Patient Disposition: Home, Self-Care Instructions: Gallstones (ED), Iron Deficiency Anemia (ED) Additional Instructions: Increase the dose of your iron tablets 2 times a day Take MiraLax for constipation Follow with surgeon and manager of financial planning Avoid fried foods Prescriptions: New polyethylene glycol 3350 [Miralax] 17 gram/dose powder 17 g PO DAILY Qty: 510 0RF ferrous gluconate 324 mg (37.5 mg iron) tablet 324 mg PO BID Qty: 60 0RF No Action FreeStyle Lite Strips Strip 1 strip miscellaneous .qd 90 Days Qty: 100 10RF glucose [Dex4 Glucose] 4 gram tablet,chewable 12 g PO Q15M PRN (Reason: hypoglycemia) 90 Days Qty: 60 3RF Rx Instructions: until symptoms of low blood sugar are controlled (DME) pen needle, diabetic 32 gauge x 5/32 needle See Rx Instructions subcut .MEDSUPPLY Qty: 150 11RF Rx Instructions: Once a day cholecalciferol (vitamin D3) 50 mcg (2,000 unit) capsule 50 mcg PO DAILY Qty: 30 11RF Lantus Solostar U-100 Insulin 100 unit/mL (3 mL) insulin pen 32 unit subcut QAM 90 Days Qty: 28.8 1RF FreeStyle Sal 14 Day Sensor Kit 1 ea topical Q2W 90 Days Qty: 6 11RF insulin lispro 100 unit/mL insulin pen See Rx Instructions subcut TID Qty: 15 5RF Rx Instructions: 4 units before breakfast and dinner and 6 units before lunch subcut 3 times a day; 4 units before breakfast and dinner and 6 units before lunch subcut 3 times a day; subcutaneously 3 times a day; metformin 1,000 mg tablet 1,000 mg PO BID 30 Days Qty: 60 0RF Rx Instructions: FUTURE REFILLS FROM PCP. bisacodyl [Dulcolax (bisacodyl)] 5 mg tablet,delayed release (DR/EC) 20 mg PO .once Qty: 4 0RF Rx Instructions: Take 4 tablets of Dulcolax at noon, the day before your colonoscopy polyethylene glycol 3350 [Miralax] 17 gram/dose powder 238 g PO .COMPLEX 1 Days Qty: 238 0RF Rx Instructions: 238 grams orally; Mix Miralax with 64 oz of a clear liquid. Begin drinking at 5 pm the day before colonoscopy. triamcinolone acetonide 0.5 % cream 1 appl topical BID Qty: 15 0RF tramadol 50 mg tablet 50 mg PO BID PRN (Reason: pain) Qty: 5 0RF alprazolam [Xanax] 0.5 mg tablet 0.5 mg PO BID PRN (Reason: anxiety) Qty: 20 0RF tranexamic acid 650 mg tablet 1,300 mg PO TID 5 Days Qty: 30 0RF lorazepam [Ativan] 1 mg tablet 1 mg PO BID PRN (Reason: anxiety) Qty: 4 0RF Rx Instructions: Please be aware that this medication can cause addiction/dependence (DME) FreeStyle Precision Krunal Strips Strip See Rx Instructions .ROUTE DAILY Qty: 10 Rx Instructions: As directed meloxicam 7.5 mg tablet 7.5 mg PO DAILY hydroxyzine HCl 25 mg tablet 25 mg PO BEDTIME zolpidem [Ambien] 10 mg tablet 10 mg PO BEDTIME PRN (Reason: Insomnia) quetiapine [Seroquel] 25 mg tablet 25 mg PO BEDTIME fluticasone propionate [Flonase Allergy Relief] 50 mcg/actuation spray,suspension 1 spray intranasal DAILY Rx Instructions: administer into each nostril amitriptyline 25 mg tablet 25 mg PO DAILY lisinopril 10 mg tablet 10 mg PO DAILY albuterol sulfate 90 mcg/actuation HFA aerosol inhaler 2 puff inhalation Q4-5H PRN (Reason: Shortness Of Breath) loratadine [Allergy Relief (loratadine)] 10 mg tablet 10 mg PO DAILY PRN (Reason: Allergy Symptoms) (DME) pen needle, diabetic [BD Ultra-Fine Che Pen Needle] 32 gauge x 5/32 needle See Rx Instructions .ROUTE .MEDSUPPLY Qty: 125 6RF Rx Instructions: As directed four times a day gabapentin 600 mg tablet 600 mg PO TID 30 Days Qty: 90 6RF lansoprazole 30 mg capsule,delayed release(DR/EC) 30 mg PO DAILY Qty: 90 3RF famotidine 40 mg tablet 40 mg PO BEDTIME Qty: 90 3RF aspirin 81 mg tablet,delayed release (DR/EC) 81 mg PO DAILY latanoprost 0.005 % drops 1 drp ophthalmic (eye) BEDTIME ferrous gluconate 324 mg (38 mg iron) tablet 324 mg PO DAILY docusate sodium 100 mg capsule 200 mg PO BEDTIME Qty: 180 3RF metoprolol tartrate 25 mg tablet 12.5 mg PO BID calcium carbonate 500 mg calcium (1,250 mg) tablet,chewable 500 mg PO BID simethicone [Gas Relief (simethicone)] 125 mg capsule 125 mg PO TID-QID PRN (Reason: abdominal distention) Qty: 120 2RF Referrals: Jose Vogt MD [Physician] - 2 weeks Florin Downs MD [Physician] - 2 weeks Interventions: ED Discharge Assessment Last Done: 07/10/24 05:00 Discharge Date/Time: 07/10/24 05:02 Print Language: Hebrew
[2024-07-10 02:49] VITALS: BP 111/56; PULSE 66; RESP 16; TEMP 36.9; O2SAT 99
[2024-07-10 03:15] LABS: Iron 14 mcg/dL (30-160); Percent Iron Saturation 4 % (15-50); Total Iron Binding Capacity 337 mcg/dL (228-428); Unsaturated Iron Binding 323 ug/dL
[2024-07-10 04:34] VITALS: BP 112/65; PULSE 68; RESP 16; TEMP 36.7; O2SAT 100
[2024-07-10 05:00] VITALS: BP 112/65; PULSE 68; RESP 16; TEMP 36.7; O2SAT 100
== END 2024-07-10 05:02 | disposition home or self-care (01) ==
PROVIDERS: Emergency Provider Internal Medicine; PCP Hospitalist
DX: K80.20 Calculus of gallbladder without cholecystitis without obstruction (principal); D50.9 Iron deficiency anemia, unspecified; R94.31 Abnormal electrocardiogram [ECG] [EKG]; Z79.899 Other long term (current) drug therapy
CPT/HCPCS: 36415; 76705; 80048; 80076; 83540; 83690; 85025; 86850; 86900; 86901; 93005; 99284

== ENCOUNTER → 2024-07-10 01:15 | Outpatient (BNV) | payer OTHER, SELFPAY | PROVIDERS: Emergency Provider Internal Medicine; PCP Hospitalist; Visit Provider Internal Medicine | DX: R94.31 Abnormal electrocardiogram [ECG] [EKG] (principal) | CPT/HCPCS: 93010 ==

== ENCOUNTER 2024-09-04 08:59 | Outpatient (AMB) | payer OTHER, SELFPAY ==
[2024-09-04 09:01] VITALS: BP 142/86; PULSE 74; O2SAT 100; BMI 33.7
--- NOTE | 2024-09-04 09:01 | MHC.OFFVIS ---
Vital Signs 09/04/24 09:01 Height 5 ft 3 in Weight 190 lb 7.67 oz BMI 33.7 BP 142/86 H Blood Pressure Location Rt brachial Position Sitting Pulse 74 Pulse Source Pulse Oximeter Pulse Oximetry (%) 100 Oxygen Delivery Method Room Air Intake Visit Reasons: Abdominal pain when eating Intake Note: ESTABLISHED PATIENT Ele presents in office today for a scheduled FUV/Pre Op Visit Meds reviewed? Y. Pt states that they have been taking an unspecified GI medication and pain medication per their abd pain. Pt cannot recall any further details. Allergies reviewed? Y No recent surgeries in the last year? None, however; pt reports new dx of gallstones from a provider in her home country of [place]. Pt states that she has also been to the [facility] where she was told the same thing. Any significant concerns or new changes? Abd pain upon consumption Pharmacy verified? [facility] Picture Framer Required: Yes Picture Framer Services: Picture Framer Present Picture Framer Name: [id number] Patsy Information Interpreted: non-clinical & clinical Accompanied by: Self / Same As Patient Allergies No Known Allergies Allergy (Verified 09/04/24 10:12) HPI HPI Abdominal pain when eating: Details: LAST VISIT Postprandial epigastric pain Postprandial abdominal bloating Constipation Dyspepsia IBS (irritable bowel syndrome) Helicobacter pylori (H. pylori) Plan Continue lansoprazole and famotidine. Avoid dietary triggers and late night snacking. Patient admits to have occasional postprandial abdominal bloating related most likely to food. Patient does admit that after she eats onions or garlic she will be bloated. Avoid dietary triggers. Continue low FODMAP diet. Patient has appointment in March with me. We will discuss going for endoscopy and colonoscopy. Patient will call our office if she will have any GI concerning symptoms. She is agreeable to this plan and verbalizes understanding of instructions. She was given the opportunity to ask questions and all questions answered. ? Thank you for allowing me to participate in her care Medications Refilled lansoprazole 30 mg PO DAILY 90 caps 3RF K21.9 famotidine 40 mg PO BEDTIME 90 tabs 3RF K21.9 Discontinued tetracycline Discontinued Reason: Patient Completed Course 1,000 mg (2 x 500 mg) PO Q12H 56 caps 0RF A04.8 bismuth subsalicylate Discontinued Reason: Patient Completed Course 2 tabs PO QID 14 days 112 tabs 0RF diarrhea A04.8 metronidazole Discontinued Reason: Patient Completed Course 1,000 mg (2 x 500 mg) PO BID 56 tabs 0RF A04.8 TODAY'S VISIT Patient is here today for follow-up and to discuss going for upper endoscopy and colonoscopy. In the past patient was treated for H pylori, finished all her treatment. Patient was in [place] visiting by herself for about a month end of April till mid of May and developedt epigastric pain, nausea and vomiting and was seen by a provider in her own country. Patient had an ultrasound and H pylori testing. She tested positive again for H pylori and was given a treatment for 1 month. Patient reports that she finish all of her treatment and then started taking PPI treatment. Patient saw her PCP when she returned back to the [facility] and he send her to GI at [facility]. Patient was seen at [facility] outpatient GI. Was seen by Dr. Lagunas, sent for HIDA scan which came back normal. Patient never saw General surgery in regarding her ultrasound. Ultrasound showed large stone without cholecystitis. Patient has occasional postprandial abdominal bloating and pain. Started taking iron supplements and is having trouble moving her bowels. Patient is no longer taking Colace. Patient denies melena, hematochezia, unintentional weight loss or ribbon like stools. Patient has colonoscopy and upper endoscopy scheduled for August and follow-up in the office in September [facility] Medical History Acid indigestion Back pain Palpitations Leukocytosis Depression Anxiety Asthma Migraine Type 2 diabetes mellitus with polyneuropathy Type 2 diabetes mellitus with hyperglycemia, with long-term current use of insulin Essential hypertension Vitamin D insufficiency Surgical History (Updated 09/25/24 @ 14:55 by Meg Duncan RN) History of esophagogastroduodenoscopy (EGD) H/O colonoscopy Hx of section Family History Father Hypertension Diabetes Heart disease Mother Diabetes Heart disease Hypertension Social History Household Members: Family and Children Alcohol intake: current Alcohol intake frequency: does not drink Patient Tobacco Use Status: Never used Tobacco Second Hand Smoke Exposure: No Review of Systems Const Denies weight gain and Denies weight loss ENT Reports no additional complaints, Denies dysphagia and Denies odynophagia Card Reports no additional complaints Resp Reports no additional complaints GI Reports abdominal pain (Epigastric), Denies belching, Denies melena, Reports bloating, Denies change in bowel habits, Denies dysphagia, Denies excessive flatus, Denies dyspepsia, Reports heartburn, Denies diarrhea, Denies loose stools, Denies nausea, Denies odynophagia and Denies vomiting Reports no additional complaints Musc Reports no additional complaints Neuro Reports no additional complaints Psych Reports no additional complaints Endo Reports no additional complaints Physical Exam Vital Signs: Last Vital Signs Pulse 74 09/04/24 09:01 BP 142/86 H 09/04/24 09:01 Pulse Ox 100 09/04/24 09:01 Oxygen Delivery Method Room Air 09/04/24 09:01 BMI result Body Mass Index 33.7 Const General: healthy appearing and no acute distress Nutritional Appearance: obese Orientation/consciousness: patient oriented x3 Resp Effort & Inspection: normal respiratory effort, able to speak in complete sentences, no tracheal deviation and symmetric chest movement Auscultation: clear to auscultation bilaterally Cardio Rate: regular rate GI Inspection: Yes normal to inspection, No distended and Yes obesity Palpation (GI): Soft to palpation, not firm, nontender and No hepatosplenomegaly present Auscultation: normal bowel sounds General: Yes no CVA tenderness Back/Spine/Pelvis Back: no CVA tenderness Skin General skin exam: elasticity normal, turgor normal and dry skin Neuro General: patient oriented x3 Psych Appearance: grossly normal Mental Status: mental status grossly normal Assessment & Plan Assessment & Plan (1) Postprandial epigastric pain: Code(s): R10.13 - Epigastric pain (2) Postprandial abdominal bloating: Code(s): R14.0 - Abdominal distension (gaseous) (3) Constipation: Code(s): K59.00 - Constipation, unspecified Qualifiers: Constipation type: slow transit constipation Qualified Code(s): K59.01 - Slow transit constipation (4) Dyspepsia: Code(s): R10.13 - Epigastric pain (5) IBS (irritable bowel syndrome): Code(s): K58.9 - Irritable bowel syndrome, unspecified Qualifiers: Irritable bowel syndrome type: without diarrhea Qualified Code(s): K58.9 - Irritable bowel syndrome, unspecified (6) Helicobacter pylori (H. pylori): Code(s): A04.8 - Other specified bacterial intestinal infections (7) Cholelithiasis: Code(s): K80.20 - Calculus of gallbladder without cholecystitis without obstruction Qualifiers: Biliary obstruction: without biliary obstruction Cholecystitis presence: without cholecystitis Cholelithiasis location: gallbladder Qualified Code(s): K80.20 - Calculus of gallbladder without cholecystitis without obstruction Plan Patient will start taking Dulcolax daily. Referral to General surgery for large gallstone and severe postprandial symptoms that send patient to ER few times in the past. What to expect before during and after procedure discussed with patient. Stressed the importance of good bowel prep and clear liquid diet. Patient will see me after the procedure. Patient will avoid food high in fat. Increase fluid intake and activity to promote better bowel motility. Patient is agreeable to current plan of care and verbalizes understanding of instructions. She was given the opportunity to ask questions and all questions answered. Thank you for allowing me to participate in her care Orders: Referrals General Surgery Referral K80.20 - Calculus of gallbladder without cholecystitis without obstruction Medications: New bisacodyl (Dulcolax (bisacodyl)) 10 mg (2 x 5 mg) PO BEDTIME 180 tabs 4RF Changed From polyethylene glycol 3350 238 grams orally; Mix Miralax with 64 oz of a clear liquid. Begin drinking at 5 pm the day before colonoscopy. 1 day 238 grams 0RF To polyethylene glycol 3350 (Miralax) 238 grams orally; Mix Miralax with 64 oz of a clear liquid. Begin drinking at 5 pm the day before colonoscopy. 238 grams 0RF 1 day Refilled bisacodyl (Dulcolax (bisacodyl)) Take 4 tablets of Dulcolax at noon, the day before your colonoscopy 20 mg (4 x 5 mg) PO .once 4 tabs 0RF Coding Level of Care Code Est Pt Level 4 (31982) Complex EM visit Add On G2211 Diagnoses Postprandial epigastric pain R10.13 Postprandial abdominal bloating R14.0 Slow transit constipation K59.01 Constipation type: slow transit constipation Dyspepsia R10.13 Irritable bowel syndrome without diarrhea K58.9 Irritable bowel syndrome type: without diarrhea Helicobacter pylori (H. pylori) A04.8 Calculus of gallbladder without cholecystitis without obstruction K80.20 Biliary obstruction: without biliary obstruction Cholecystitis presence: without cholecystitis Cholelithiasis location: gallbladder Time Spent (min) 40 Comment 25 minutes spent with patient and additional 15 minutes spent reviewing her records
--- OUTSIDE RECORDS SUMMARY | 2024-09-06 13:41 | XMS_ITS | Continuity of Care Document ---
Author Organization [facility] [place] Address [address] [place] [address]- Care Team Providers Care Internal Security Manager Name Role Phone Yarely Rondon MD Primary Care Physician [phone] Encounter [facility] NBR [id number] Date(s): 07/24/24 - 08/23/24 [facility] [place] [address] [place] [address]- Attending Physician: Jordin Lyon Admitting Physician: Jordin Lyon Referring Physician: AdmtrJordin Encounter Type: Triage Allergies, Adverse Reactions, Alerts No Known Allergies Medications (Vitamin D3) Cholecalciferol 400 PENITENTIARY units/mL oral syringe 1 mL = 10 mcg, By Mouth, Daily, 0 Refills, Maintenance, 03/06/23 8:08:00 PM EDT, Partial fill upon patient request if the prescription is for a schedule II opioid drug. Start Date: 03/06/23 Status: Ordered Repeat number: 1 Abilify 2 mg oral tablet 2 mg, 1, tablet, By Mouth, Daily, Refills 0, Maintenance, 03/06/23 8:07:00 PM EDT, Partial fill uponpatient request if the prescription is for a schedule II opioid drug. Start Date: 03/06/23 Status: Ordered Repeat number: 1 acetaminophen-HYDROcodone 325 mg-5 mg oral tablet 1-2 tablet, By Mouth, Every 6 hours, PRN for pain, May partial fill [id number], # 12 tablet, 0 Refills, Maintenance, 07/09/23 12:54:00 AM EDT, Tablet, [id number], Partial fill upon patient request if the prescription is for a schedule II opioid drug., 1-2 tablet By Mouth Every 6 hours,PRN:for pain,Instr:May partial fill; BS [id number], 160, cm, 07/08/23 21:38:00 EDT, Height, 93, kg, 07/08/2321:38:00 EDT, Dry Weight Start Date: 07/09/23 Status: Ordered Quantity: 12.0 Unit: tablet Repeat number: 1 Albuterol 0.083% inhalation lulú Refills 0, Maintenance, 01/03/18 2:13:56 PM EDT Start Date: 01/03/18 Status: Ordered Repeat number: 1 Ambien 10 mg oral tablet 1 tablet = 10 mg, By Mouth, Daily at bedtime, PRN for sleep, 0 Refills, Maintenance, 01/03/18 2:11:37PM EDT, Tablet Start Date: 01/03/18 Status: Ordered Repeat number: 1 amiTRIPTYLINE By Mouth, Daily at bedtime, 0 Refills, Maintenance, 03/06/23 8:06:00 PM EDT, Partial fill upon patient request if the prescription is for a schedule II opioid drug. Start Date: 03/06/23 Status: Ordered Repeat number: 1 aspirin 81 mg oral delayed release tablet 1 tablet = 81 mg, By Mouth, Daily, 0 Refills, Maintenance, 12/04/21 7:28:00 PM EST, Partial fill upon patient request if the prescription is for a schedule II opioid drug. Start Date: 12/04/21 Status: Ordered Repeat number: 1 calcium (as carbonate and lactate)-vitamin D 200 mg-250 intl units oral tablet, chewable 2 tablet, By Mouth, 2 times a day, 0 Refills, Maintenance, 03/06/23 8:07:00 PM EDT, Partial fill upon patient request if the prescription is for a schedule II opioid drug. Start Date: 03/06/23 Status: Ordered Repeat number: 1 Fish Oil By Mouth, 0 Refills, Maintenance, 03/06/23 8:06:00 PM EDT, Partial fill upon patient request if the prescription is for a schedule II opioid drug. Start Date: 03/06/23 Status: Ordered Repeat number: 1 Fluoxetine By Mouth, 0 Refills, Maintenance, 03/06/23 8:07:00 PM EDT, Partial fill upon patient request if the prescription is for a schedule II opioid drug. Start Date: 03/06/23 Status: Ordered Repeat number: 1 Freestyle Lite Lancets Maintenance, 01/03/18 2:31:14 PM EDT, Compound Start Date: 01/03/18 Status: Ordered Repeat number: 1 Freestyle Lite Test Strips Maintenance, 01/03/18 2:31:26 PM EDT, Compound Start Date: 01/03/18 Status: Ordered Repeat number: 1 gabapentin 300 mg oral capsule 1 capsule = 300 mg, By Mouth, 3 times a day, Increase by 1 capsule every week to maximum dose of 3 capsules, 3x a day. Patient provided with written instructions., # 180 capsule, 5 Refills, Maintenance, 12/01/11 1:05:40 PM EST, [facility]/pharmacy #[id number] Start Date: 12/01/11 Status: Ordered Quantity: 180.0 Unit: capsule Repeat number: 6 hydrOXYzine hydrochloride 25 mg oral tablet 1 tablet = 25 mg, By Mouth, 4 times a day, 0 Refills, Maintenance, 01/03/18 2:11:29 PM EDT Start Date: 01/03/18 Status: Ordered Repeat number: 1 Lantus Solostar Pen 100 units/mL subcutaneous solution Subcutaneous Infusion, 0 Refills, Maintenance, 01/03/18 2:14:28 PM EDT Start Date: 01/03/18 Status: Ordered Repeat number: 1 lisinopril 10 mg oral tablet 10 mg, 1, tablet, By Mouth, Daily, # 30 tablet, Refills 0, Maintenance, 12/04/21 7:27:00 PM EST, Partial fill upon patient request if the prescription is for a schedule II opioid drug. Start Date: 12/04/21 Status: Ordered Quantity: 30.0 Unit: tablet Repeat number: 1 Lorazepam 0 Refills, Maintenance, 03/06/23 8:07:00 PM EDT, Partial fill upon patient request if the prescription is for a schedule II opioid drug. Start Date: 03/06/23 Status: Ordered Repeat number: 1 meclizine 12.5 mg oral tablet 1 tablet = 12.5 mg, By Mouth, 3 times a day, PRN for dizziness, # 30 tablet, 0 Refills, Maintenance, 03/06/23 9:21:00 PM EDT, Tablet, [facility]/pharmacy #[id number], Partial fill upon patient request if the prescription is for a schedule II opioid drug., 165, cm, 03/06/23 19:58:00 EDT, Height, 95.8, kg, 03/06/23 19:58:00 EDT, Dry Weight Start Date: 03/06/23 Status: Ordered Quantity: 30.0 Unit: tablet Repeat number: 1 Meloxicam Daily, 0 Refills, Maintenance, 03/06/23 8:06:00 PM EDT, Partial fill upon patient request if the prescription is for a schedule II opioid drug. Start Date: 03/06/23 Status: Ordered Repeat number: 1 metFORMIN 1000 mg oral tablet 1 tablet = 1,000 mg, By Mouth, 2 times a day, # 60 tablet, 0 Refills, Maintenance, 02/16/24 12:22:00PM EDT, Tablet, Partial fill upon patient request if the prescription is for a schedule II opioid drug. Start Date: 02/16/24 Status: Ordered Quantity: 60.0 Unit: tablet Repeat number: 1 metoprolol (OP) 0 Refills, Maintenance, 2 Start Date: 03/06/23 Status: Ordered Repeat number: 1 Nitrostat 0.3 mg sublingual tablet 1 tablet = 0.3 mg, Sublingual, Every 5 minutes, 0 Refills, Maintenance, 03/06/23 8:08:00 PM EDT, Partial fill upon patient request if the prescription is for a schedule II opioid drug. Start Date: 03/06/23 Status: Ordered Repeat number: 1 Nuedexta By Mouth, Every 12 hours, 0 Refills, Maintenance, 03/06/23 8:08:00 PM EDT, Partial fill upon patientrequest if the prescription is for a schedule II opioid drug. Start Date: 03/06/23 Status: Ordered Repeat number: 1 Onglyza 5 mg oral tablet 1 tablet = 5 mg, By Mouth, Daily, # 30 tablet, 0 Refills, Maintenance, 01/03/18 2:15:03 PM EDT, Tablet Start Date: 01/03/18 Status: Ordered Quantity: 30.0 Unit: tablet Repeat number: 1 prazosin 1 mg oral capsule 1, capsule, By Mouth, Daily at bedtime, # 30 capsule, Refills 0, Maintenance, 06/15/22 9:03:00 AM EDT, Route to Pharmacy Electronically, [id number], 160, cm, 04/07/22 15:56:00 EDT, Height, 96, kg, 12/04/21 19:19:00 EST, Dry Weight Start Date: 06/15/22 Status: Ordered Quantity: 30.0 Unit: capsule Repeat number: 1 SEROquel 25 mg oral tablet 25 mg, 1, tablet, By Mouth, Daily, # 30 tablet, Refills 0, Maintenance, 01/03/18 2:12:13 PM EDT Start Date: 01/03/18 Status: Ordered Quantity: 30.0 Unit: tablet Repeat number: 1 Valium 5 mg oral tablet 5 mg, 1, tablet, By Mouth, Once, # 1 tablet, Refills 0, Tot. Refills 0, Soft Stop, 12/10/21 12:52:00PM EDT, Route to Pharmacy Electronically, [facility]/pharmacy #1972, Partial fill upon patient request if the prescription is for a schedule II opioid drug., 160, cm, 12/04/21 19:19:00 EST, Height, 96, kg, 12/04/21 19:19:00 EST, Dry Weight Start Date: 12/10/21 Status: Ordered Quantity: 1.0 Unit: tablet Repeat number: 1 Vicodin 5/500 Tablet By Mouth, Every 6 hours, 0 Refills, Maintenance, 03/06/23 8:06:00 PM EDT, Partial fill upon patient request if the prescription is for a schedule II opioid drug. Start Date: 03/06/23 Status: Ordered Repeat number: 1 Problem List Condition Confirmation Course Effective Dates Status Health St atus Informant Hypertension Confirmed Active Obese class I Confirmed Active Social History Social History Type Response Smoking Status Never smoker entered on: 01/03/18 Sex Sex Representation Female (finding) Patient Care team information Care Team Personnel Name: Yarely Rondon MD Position: [facility] Physician - Primary Care Member Role: PCP Address: [address] [place] [address] Telecom: Care Team Related Persons Name: FELICITA SPAULDING Name: YO LONG Name: GHAZALA MEZA Name: MIN LOWERY Insurance Providers Guarantor name: [facility] Information #: 1 Payer: [employer] Member Number: NA Policy Number: NA Group Number: NA
--- OUTSIDE RECORDS SUMMARY | 2024-09-06 13:42 | XMS_ITS | Continuity of Care Document ---
Author Organization [facility] [place] Address [address] [place] [address]- Care Team Providers Care Community Engagement Manager Name Role Phone Yarely Rondon MD Primary Care Physician [phone] Encounter [facility] NBR [id number] Date(s): 08/04/24 - 09/03/24 [facility] [place] [address] [place] [address]- Encounter Type: Triage Allergies, Adverse Reactions, Alerts No Known Allergies Medications (Vitamin D3) Cholecalciferol 400 HALF-WAY units/mL oral syringe 1 mL = 10 [...] hours, PRN for pain, May partial fill [id number], # 12 tablet, 0 Refills, Maintenance, 07/09/23 12:54:00 AM EDT, Tablet, [facility]/pharmacy #1972, Partial fill upon patient request if the prescription is for a schedule II opioid drug., 1-2 tablet By Mouth Every 6 hours,PRN:for pain,Instr:May partial fill; BS [id number], 160, cm, 07/08/23 21:38:00 EDT, Height, 93, [...] 5 Refills, Maintenance, 12/01/11 1:05:40 PM EST, [facility]/pharmacy #[id number] Start Date: 12/01/11 Status: Ordered [...] Refills, Maintenance, 03/06/23 9:21:00 PM EDT, Tablet, [facility]/pharmacy #1972, Partial fill upon patient request [...] 9:03:00 AM EDT, Route to Pharmacy Electronically, [id number], 160, cm, 04/07/22 15:56:00 EDT, Height, 96, [...] 12/10/21 12:52:00PM EDT, Route to Pharmacy Electronically, [facility]/pharmacy #1972, Partial fill upon patient request [...] Team Personnel Name: Yarely Rondon MD Position: [facility] Physician - Primary Care Member Role: PCP Address: [address] [place] [address] Telecom: Care Team Related Persons Name: FELICITA SPAULDING Name: YO LONG Name: GHAZALA MEZA Name: MIN LOWERY Insurance Providers Guarantor name: [facility] Information #: 1 Payer: [employer] Member Number: NA Policy Number: NA Group Number: NA
--- OUTSIDE RECORDS SUMMARY | 2024-09-06 13:42 | XMS_ITS ---
Author Organization [facility] Address [address] [place] [id number] Care Team Providers Care Machinery Cleaner Name Role Phone ALBERT MOJICA Primary Care Provider REASON FOR VISIT pre op notes request Encounters Encounter Location Date Provider Diagnosis [facility] [address] [facility] [address] [place] [address] 08/18/2024 ALBERT MOJICA Plan Of Treatment Next Appt Details Provider Name:Tariq Llamas, 1 11/13/2023 01:30:00 PM, [address] [facility] [address], [place], [address], Progress Notes * Ele DEL VALLEDOCora:1975 ( 49 yo F)Acc No.[id number]:08/18/2024 Patient:?ELIGIOEvansjennifer :1975???Age:49 Y???Sex:Female Address:[place] [address] * true * Date:? Generated for Ronniei soumya/Bassam/eTransmitting on:?09/06/2024 01:42 PM EST
--- OUTSIDE RECORDS SUMMARY | 2024-09-06 13:42 | XMS_ITS ---
Author Organization [facility] Address [address] [facility] [address] [place] [address] Care Team Providers Care Road Manager Name Role Phone ALBERT MOJICA Primary Care Provider Eladio Garrett Unavailable [phone] REASON FOR VISIT Preop Encounters Encounter Location Date Provider Diagnosis [address] [place] [address] 08/18/2024 Eladio Garrett Plan Of Treatment Next Appt Details Provider Name:Tariq Llamas, 1 11/13/2023 01:30:00 PM, [address] [facility] [address], [place], [address], Progress Notes * Ele DEL VALLEDOB:1975 ( 49 yo F)Acc No.[id number]:08/18/2024 Patient:?Ele DEL VALLE :1975???Age:49 Y???Sex:Female Address:[place] [address] * true * Date:? Generated for Printi soumya/Bassam/eTransmitting on:?09/06/2024 01:41 PM EST
--- OUTSIDE RECORDS SUMMARY | 2024-09-06 13:42 | XMS_ITS ---
Author Organization [facility] Address [address] [address] Care Team Providers Care Co Founder Name Role Phone ALBERT MOJICA Primary Care Provider Eladio Garrett Unavailable [phone] REASON FOR VISIT Aspirin Encounters Encounter Location Date Provider Diagnosis [facility] [address] [address] 08/25/2024 Eladio Garrett Plan Of Treatment Next Appt Details Provider Name:Tariq Llamas, 1 11/13/2023 01:30:00 PM, [address] [address], [place], [address], Progress Notes * Ele DEL VALLEDOB:1975 ( 49 yo F)Acc No.[id number]:08/25/2024 Patient:?Ele DEL VALLE :1975???Age:49 Y???Sex:Female Address:[facility] [place] [address] * true * Date:? Generated for Printi soumya/Bassam/eTransmitting on:?09/06/2024 01:41 PM EST
--- OUTSIDE RECORDS SUMMARY | 2024-09-06 13:42 | XMS_ITS | Continuity of Care Document ---
Author Organization [facility] [place] Address [address] [place] [address]- Care Team Providers Care Rubber Compounder Mixer Name Role Phone Yarely Rondon MD Primary Care Physician [phone] Encounter [facility] NBR [id number] Date(s): 07/20/24 - 08/19/24 [facility] [place] [address] [place] [address]- Encounter Type: Triage Allergies, Adverse Reactions, Alerts No Known Allergies Medications (Vitamin D3) Cholecalciferol 400 FCI units/mL oral syringe 1 mL = 10 [...] hours, PRN for pain, May partial fill [id number], # 12 tablet, 0 Refills, Maintenance, 07/09/23 12:54:00 AM EDT, Tablet, [facility]/pharmacy #1972, Partial fill upon patient request if the prescription is for a schedule II opioid drug., 1-2 tablet By Mouth Every 6 hours,PRN:for pain,Instr:May partial fill; BS [id number], 160, cm, 07/08/23 21:38:00 EDT, Height, 93, [...] 5 Refills, Maintenance, 12/01/11 1:05:40 PM EST, [facility]/pharmacy #[id number] Start Date: 12/01/11 Status: Ordered Quantity: [...] Refills, Maintenance, 03/06/23 9:21:00 PM EDT, Tablet, [facility], Partial fill upon [...] 9:03:00 AM EDT, Route to Pharmacy Electronically, [id number], 160, cm, 04/07/22 15:56:00 EDT, Height, 96, [...] 12/10/21 12:52:00PM EDT, Route to Pharmacy Electronically, [facility]/pharmacy #1972, Partial fill upon patient request if [...] Team Personnel Name: Yarely Rondon MD Position: [facility] Physician - Primary Care Member Role: PCP Address: [address] [place] [address] Telecom: Care Team Related Persons Name: FELICITA SPAULDING Name: YO LONG Name: GHAZALA MEZA Name: MIN LOWERY Insurance Providers Guarantor name: [facility] Information #: 1 Payer: [employer] Member Number: NA Policy Number: NA Group Number: NA
--- OUTSIDE RECORDS SUMMARY | 2024-09-06 13:43 | XMS_ITS | Patient Health Record ---
Author Organization [facility]umatic Address [address] [facility] [address] [place] [address] Care Team Providers Care Broadcast Designer Name Role Phone ALBERT MOJICA Primary Care Provider [phone] Eladio Garrett Unavailable [phone] Allergies Allergen (clinical drug ingredient) Drug/Non Drug Allergy documented on EMR Reaction Allergy Type Onset Date Status dulaglutide Trulicity nausea/headache Drug Allergy Active Results Component Value Reference Range Notes Comp. Metabolic Panel (14)-3 Reviewed date:08/18/2024 11:12:10 AM Interpretation: Performing Lab:[facility], [address] [place] [address], [place], Phone - [phone], Director - Lissette Notes/Report: Glucose 144 70-99 mg/dL BUN 9 6-24 mg/dL Creatinine 0.68 0.57-1.00 mg/dL eGFR 106 >59 mL/min/1.73 BUN/Creatinine Ratio 13 9-23 Sodium 138 134-144 mmol/L Potassium 5.0 3.5-5.2 mmol/L Chloride 103 96-106 mmol/L Carbon Dioxide, Total 20 20-29 mmol/L Calcium 9.7 8.7-10.2 mg/dL Protein, Total 7.5 6.0-8.5 g/dL Albumin 4.1 3.9-4.9 g/dL Globulin, Total 3.4 1.5-4.5 g/dL Bilirubin, Total <0.2 0.0-1.2 mg/dL Alkaline Phosphatase 58 44-121 IU/L AST (SGOT) 10 0-40 IU/L ALT (SGPT) 11 0-32 IU/L CBC With Differential/Platel et-[id number] Reviewed date:08/18/2024 11:13:49 AM Interpretation: Performing Lab:[facility], [facility], Phone - [phone], Director - Lissette Notes/Report: WBC 12.4 3.4-10.8 x10E3/uL Effective August 28, 2024 profile [id number] WBC will be made non-orderable as a stand-alone order code. RBC 4.88 3.77-5.28 x10E6/uL Hemoglobin 9.9 11.1-15.9 g/dL Hematocrit 35.6 34.0-46.6 % MCV 73 79-97 fL MCH 20.3 26.6-33.0 pg MCHC 27.8 31.5-35.7 g/dL RDW 20.9 11.7-15.4 % Platelets 552 150-450 x10E3/uL Neutrophils 63 Not Estab. % Lymphs 30 Not Estab. % Monocytes 5 Not Estab. % Eos 1 Not Estab. % Basos 1 Not Estab. % Neutrophils (Absolute) 7.7 1.4-7.0 x10E3/uL Lymphs (Absolute) 3.8 0.7-3.1 x10E3/uL Monocytes(Absolute) 0.7 0.1-0.9 x10E3/uL Eos (Absolute) 0.1 0.0-0.4 x10E3/uL Baso (Absolute) 0.1 0.0-0.2 x10E3/uL Immature Granulocytes 0 Not Estab. % Immature Grans (Abs) 0.0 0.0-0.1 x10E3/uL Hemoglobin [id number] Reviewed date:08/18/2024 11:01:17 AM Interpretation: Performing Lab:[facility], [facility], Phone - [phone], Director - Lissette Notes/Report: Hemoglobin A1c 7.0 4.8-5.6 % . Prediabetes: 5.7 - 6.4 Diabetes: >6.4 Glycemic control for adults with diabetes: <7.0 CBC With Differential/Platel et-[id number] Reviewed date:02/17/2024 03:26:04 PM Interpretation: Performing Lab:[facility], [facility], Phone - [phone], Director - MDJodry Notes/Report: WBC 11.9 3.4-10.8 x10E3/uL RBC 3.51 3.77-5.28 x10E6/uL Hemoglobin 9.4 11.1-15.9 g/dL Hematocrit 30.7 34.0-46.6 % MCV 88 79-97 fL MCH 26.8 26.6-33.0 pg MCHC 30.6 31.5-35.7 g/dL RDW 13.1 11.7-15.4 % Platelets 455 150-450 x10E3/uL Neutrophils 59 Not Estab. % Lymphs 28 Not Estab. % Monocytes 7 Not Estab. % Eos 5 Not Estab. % Basos 1 Not Estab. % Neutrophils (Absolute) 7.1 1.4-7.0 x10E3/uL Lymphs (Absolute) 3.3 0.7-3.1 x10E3/uL Monocytes(Absolute) 0.8 0.1-0.9 x10E3/uL Eos (Absolute) 0.6 0.0-0.4 x10E3/uL Baso (Absolute) 0.1 0.0-0.2 x10E3/uL Immature Granulocytes 0 Not Estab. % Immature Grans (Abs) 0.0 0.0-0.1 x10E3/uL Ferritin-[id number] Reviewed date:02/16/2024 07:49:03 AM Interpretation: Performing Lab:[facility], [address] [place] [address], Phone - [phone], Director - Lissette Notes/Report: Ferritin 10 15-150 ng/mL Iron-[id number] Reviewed date:02/16/2024 07:49:05 AM Interpretation: Performing Lab:[facility], [address] [place] [address], Phone - [phone], Director - Marikay Notes/Report: Iron 15 27-159 ug/dL Hgb A1c with eAG Estimation- [id number] Reviewed date:02/01/2024 07:39:32 AM Interpretation: Performing Lab:Laura Goddard[address], Phone - [phone], Director - Lissette Notes/Report: Hemoglobin A1c 7.1 4.8-5.6 % . Prediabetes: 5.7 - 6.4 Diabetes: >6.4 Glycemic control for adults with diabetes: <7.0 Estim. Avg Glu (eAG) 157 CBC With Differential/Platel et-[id number] Reviewed date:07/18/2024 10:47:00 PM Interpretation: Performing Lab:Laura Goddard, [address] [place] [address], Phone - [phone], Director - Lissette Notes/Report: WBC 12.9 3.4-10.8 x10E3/uL RBC 4.35 3.77-5.28 x10E6/uL Hemoglobin 8.3 11.1-15.9 g/dL Hematocrit 31.2 34.0-46.6 % MCV 72 79-97 fL MCH 19.1 26.6-33.0 pg MCHC 26.6 31.5-35.7 g/dL RDW 17.1 11.7-15.4 % Platelets 568 150-450 x10E3/uL Neutrophils 69 Not Estab. % Lymphs 22 Not Estab. % Monocytes 6 Not Estab. % Eos 1 Not Estab. % Basos 1 Not Estab. % Neutrophils (Absolute) 8.9 1.4-7.0 x10E3/uL Lymphs (Absolute) 2.8 0.7-3.1 x10E3/uL Monocytes(Absolute) 0.8 0.1-0.9 x10E3/uL Eos (Absolute) 0.2 0.0-0.4 x10E3/uL Baso (Absolute) 0.1 0.0-0.2 x10E3/uL Immature Granulocytes 1 Not Estab. % Immature Grans (Abs) 0.1 0.0-0.1 x10E3/uL Ferritin-[id number] Reviewed date:07/18/2024 01:54:35 PM Interpretation: Performing Lab:[facility], [address] [place] [address], Phone - [phone], Director - Lissette Notes/Report: Ferritin 8 15-150 ng/mL Iron and TIBC-[id number] Reviewed date:07/18/2024 01:55:05 PM Interpretation: Performing Lab:Laura Goddard [address] [place] [address], Phone - [phone], Director - Lissette Notes/Report: Iron Bind.Cap.(TIBC) 385 250-450 ug/dL UIBC 329 131-425 ug/dL Iron 56 27-159 ug/dL Iron Saturation 15 15-55 % Reason For Referral Reason MARIANNA/MDD Diagnosis 1 Generalized anxiety disorder (F41.1) Diagnosis 2 Major depressive dis order, recurrent, moderate (F33.1) Referral Organization [facility] Referring Provider First Name ALBERT Referring Provider Last Name GALINA Referring Provider Speciality Internal M edicine Referred Provider Specialty Psychiatry General Notes Referral printed out and mailed home to patient with a list of Psychiatry for patient to see which one accepts her insurance.Niles Crystal 01/07/2024 04:19:53 PM > Referral Priority Routine Reason Evaluation and manag ement Diagnosis 1 Other cholelithiasis without obstruction (K80.80) Referral Organization [facility] Referring Provider First Name Eladio Referring Provider Last Name Tami Referred Provider Specialty Gastrointest inal surgeon General Notes Referral sent to [facility] GI - Office will call pt for scheduling.Chey Latraya 07/13/2024 07:43:35 AM > Referral Priority Stat Reason Evaluation and manag ement Diagnosis 1 Iron deficiency anem ia, unspecified (D50.9) Referral Organization [facility] Referring Provider First Name Eladio Referring Provider Last Name Tami Referred Provider Specialty Hematology General Notes [facility] Office will call patient for scheduling.Chey Latraya 07/14/2024 08:47:08 AM > Referral Priority Urgent Medications Medication SIG (Take, Route, Frequency, Duration) Notes Start Date End Date Status Baclofen 10 MG TAKE 1 TABLET BY GLORIA TH TWICE A DAY NEEDED FOR 30 DAYS for 30 Active metFORMIN HCl 1000 MG TAKE 1 TABLET BY M OUTH TWICE A DAY WITH A MEAL FOR 90 DAYS for 90 Active Fish Oil 1000 MG 1 capsule Orally Onc e a day Active Nitrostat 0.4 MG as directed Sublingual Active HumaLOG KwikPen 100 UNIT/ML as directed Subcutaneous before meals Active Aspirin Low Dose 81 MG TAKE 1 TABLET BY MOUTH EVERY DAY FOR 90 DAYS for 90 Active Amitriptyline HCl 25 MG 1 tablet at bedt david Orally Once a day for 30 day(s) Active Ferrous Gluconate 324 (38 Fe) MG TAKE 1 TABLET BY MOUTH EVERY DAY WITH WATER OR JUICE BETWEEN MEALS for 90 Active Abilify 10 MG 1 tablet Orally Once a day Active Vitamin D3 50 MCG (2000 UT) 1 capsule Orally Once a day for 90 days Active Calcium Carbonate 1250 (500 Ca) MG 1 tablet with food Orally Twice a day Active FreeStyle Sal 2 [place] - as directed Active hydrOXYzine HCl 25 MG 1 tablet as needed Orally every 8 hrs Active FreeStyle Sal 2 Sensor - Take as DIRECTED TRANSDERMAL CHANGE EVERY 14 DAYS 30 DAYS for 30 days Active Metoprolol Tartrate 25 MG 0.5 tablet wit h food Orally Twice a day for 30 day(s) Active Lantus SoloStar 100 UNIT/ML 32 units Subcutaneous once a day for 30 days Active SEROquel 25 MG 1 tablet at bedtime Orally Once a day Active FLUoxetine HCl 40 MG TAKE 1 CAPSULE BY [facility] EVERY DAY FOR 30 DAYS for 30 Active Ambien 10 MG 1 tablet at bedtime as needed Orally Once a day Active Gabapentin 300 MG 1 capsule Orally thr ee times a day for 30 day(s) Active Omeprazole 40 MG 1 capsule 30 minutes before morning meal Orally Once a day for 30 days Not-Taking FreeStyle Lite Test - as directed In Vitro Active Diflucan 150 MG 1 tablet Orally once for 1 days 11/04/2023 Not-Taking traMADol HCl 50 MG 1 tablet as needed Orally Once a day for 14 days 07/14/2024 Not-Taking Lisinopril 10 MG TAKE 1 TABLET BY GLORIA EVERY DAY FOR 90 DAYS for 90 Active Farxiga 10 MG 1/2 tab Orally Once a day Active Nuedexta 20-10 MG 1 capsule Orally Twi ce a day Active tiZANidine HCl 4 MG 1 tablet as needed Orally Three times a day for 7 days 05/06/2022 Not-Taking BD Pen Needle Che U/F 32G X 4 MM as directed Active Vicodin 5-300 MG 1 tablet as needed Orally every 6 hrs Not-Taking ProAir HFA 108 (90 Base) MCG/ACT INHALE 2 PUFFS BY MOUTH EVERY 6 HOURS NEEDED for 25 Active Bactrim DS 800-160 MG 1 tablet Orally Tw ice a day for 3 days 11/04/2023 Not-Taking Nabumetone 500 MG 1 tablet Orally Twic e a day for 30 day(s) 05/21/2020 Active tiZANidine HCl 2 MG 1 tablet as needed Orally Three times a day for 7 days 08/04/2023 Not-Taking Albuterol Sulfate HFA 108 (90 Base) MCG/ACT INHALE 2 PUFFS BY MOUTH NEEDED EVERY 6 HOURS. for 25 Active Famotidine 40 MG 1 tablet Orally Once a day for 30 days 08/15/2024 Active Prazosin HCl 1 MG 1 capsule at bedtime Orally Once a day for 30 days Active traMADol HCl 50 MG 1 tablet as needed Orally Once a day for 14 days 08/04/2023 Not-Taking FreeStyle Lancets - as directed for 30 days Active [place] 3 1000 MG 3 capsules Orally On ce a day for 30 days 08/13/2023 Active Lansoprazole 30 MG 1 capsule before a m eal Orally Once a day for 30 days 08/15/2024 Active Immunizations Vaccine Route Administration Date Status Comme nts COVID 19 Pfizer Unknown 01/28/2021 Administered COVID 19 Pfizer Unknown 02/18/2021 Administered Hep B, adult dosage, for intramuscular use Unknown 12/05/2010 Administered Hep B, adult dosage, for intramuscular use Unknown 08/13/2011 Administered Hep B, adult dosage, for intramuscular use Unknown 02/08/2012 Administered Influenza (split), 3 yrs and above Unknown 07/05/2013 A dministered Influenza, seasonal, injecta ble (split), for 3 yrs and up Unknown 06/29/2011 Administered MMR Unknown 11/07/2010 Administered MMR Unknown 12/05/2010 Administered Pneumococcal polysaccharide PPV23 Unknown 08/13/2011 Ad ministered Td (adult), absorbed Unknown 12/05/2010 Administered Tdap Unknown 11/07/2010 Administered Tdap Unknown 06/29/2011 Administered Social History Tobacco Use: Social History Observation Description Date Details (start date - stop date) Never Smoker NA - NA Tobacco Use/Smoking Question Answer Notes Are you a nonsmoker Alcohol Screen (Audit-C) Question Answer Notes Did you have a drink containing alcohol in the p ast year? 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) Active confirmed Problem Moderate recurrent major depression (26025479) Major depressive disorder, recurrent, moderate (F33.1) Active confirmed Problem Generalized anxiety disorder (64388392) Generalized anxiety disorder (F41.1) Active confirmed Problem Post-traumatic stress disorder (37594306) Post-traumatic stress disorder, unspecified (F43.10) Active confirmed Problem Transient ischemic attack (157021983) Transient cerebral ischemic attack, unspecified (G45.9) Active confirmed Problem Insomnia (514914260) Insomnia, unspecified (G47.00) Active confirmed Problem Vertiginous syndrome (23714234) Unspecified disorder of vestibular function, unspecified ear (H81.90) Active confirmed Problem Essential hypertension (72279140) Essential (primary) hypertension (I10) Active confirmed Problem Gastro-esophageal reflux disease without esophagitis (114001587) Gastro-esophageal reflux disease without esophagitis (K21.9) Active confirmed Problem Cholelithiasis without obstruction (42053038) Other cholelithiasis without obstruction (K80.80) Active confirmed Problem Osteoarthritis (155406816) Unspecified osteoarthritis, unspecified site (M19.90) Active confirmed Problem Backache (310358273) Dorsalgia, unspecified (M54.9) Active confirmed Problem Excessive and frequent menstruation (459423363) Excessive and frequent menstruation with regular cycle (N92.0) Active confirmed Problem Abnormal uterine bleeding (02633391345657) Abnormal uterine and vaginal bleeding, unspecified (N93.9) Active confirmed Problem Abnormal gait (92287620) Unspecified abnormalities of gait and mobility (R26.9) Active confirmed Problem Long-term current use of insulin (155134686) rn long term care (current) use of insulin (Z79.4) Active confirmed Problem Essential hypertension (05080440) HTN (hypertension), benign (I10) Active confirmed Problem Anemia (347884225) Anemia, unspecified type (D64.9) Active confirmed Problem Menstrual periods irregular (34768307) Menstrual periods irregular (N92.6) Active confirmed Vital Signs Heart Rate 76 /min 08/15/2024 Temperature 98.7 degrees Fahrenheit 08/15/2024 Blood pressure diastolic 72 mm Hg 08/15/2024 Oximetry 99 % 08/15/2024 Height 64 in 08/15/2024 Blood pressure systolic 116 mm Hg 08/15/2024 Weight 192.9 lbs 08/15/2024 BMI 33.11 kg/m2 08/15/2024 Encounters Encounter Location Date Provider Diagnosis [address] [place] [address] 05/05/[address] [place] [address] 08/16/[address] [place] [address] 11/04/2023 PRICE GU Urinary tract infection, site not specified N39.0 and Diabetes mellitus due to underlying condition with diabetic neuropathy, unspecified E08.[address] [place] [address] 12/03/2023 ALBERT MOJICA Diabetes mellitus du e to underlying condition with diabetic neuropathy, unspecified E08.40 ; Generalized anxiety disorder F41.1 ; Insomnia, unspecified G47.00 and Major depressive disorder, recurrent, moderate F33.[address] [place] [address] 02/03/2024 PRICE SANAMNeil Helicobacter pylori [H. pylori] as the cause of diseases classified elsewhere B96.81 ; Leiomyoma of uterus, unspecified D25.9 ; Abnormal uterine and vaginal bleeding, unspecified N93.9 ; Generalized anxiety disorder F41.1 and Headache, unspecified R51.[address] [place] [address] 03/08/2024 Ghadeer Mazloum Diabetes mellitus du e to underlying condition with diabetic neuropathy, unspecified E08.40 ; Essential (primary) hypertension I10 ; Anemia, unspecified D64.9 ; Menstrual periods irregular N92.6 and Gastro-esophageal reflux disease without esophagitis K21.[address] [place] [address] 07/12/2024 Ghadeer Mazloum Other cholelithiasis without obstruction K80.80 ; Anemia, unspecified type D64.9 and Diabetes mellitus due to underlying condition with diabetic neuropathy, unspecified E08.40 [facility] [address] [place] [address] 08/15/2024 Ghadeer Mazloum Pre-operative cleara nce Z01.818 ; Anemia, unspecified type D64.9 ; Menstrual periods irregular N92.6 and Other cholelithiasis without obstruction K80.80 [facility] [address] [place] [address] 11/22/2023 [facility] [address] [place] [address] 02/03/2024 [facility] [address] [place] [address] 03/03/2024 [facility] [address] [place] [address] 03/17/2024 [facility] [address] [place] [address] 05/05/2024 [facility] [address] [place] [address] 07/12/2024 [facility] [address] [place] [address] 07/17/2024 [facility] [address] [place] [address] 07/18/2024 Ghadeer Thaloum Other cholelithiasis without obstruction K80.80 [facility] [address] [place] [address] 08/04/2024 [facility] [address] [place] [address] 08/08/2024 [facility] Other cholelithiasis without obstruction K80.80 [facility] [address] [place] [address] 08/18/[address] [place] [address] 08/18/2024 Eladio Thaclaudette [facility] [address] [facility] [address] [place] [address] 10/15/2023 PRICE GUL [address] [place] [address] 01/28/2024 [facility] Excessive and freque nt menstruation with regular cycle N92.[address] [address] 08/25/2024 Eladio Almazaninnaamara Assessments Encounter Date Diagnosis (ICD Code) Assessment Notes Treatment Notes Treatment Clinical Notes Section Notes 11/04/2023 Urinary tract infection, site not specified (ICD-10 - N39.0) Mrs. Marlow is a 48-year-old female Georgian speaking patient with type 2 diabetes mellitus and multiple psych issues here for follow up. She complains of vaginal irritation and burning sensation with urination. It is associated with vaginal discharge. Plan is as follows: UTI. She saw nephrology in the past couple of weeks and she was started on GLP-1 and she has A1c of 8.2. She has vaginal discharge and burning sensations. Urine dip positive.Start Bactrim 800-160 MG BID for 3 days and Diflucan 150 MG. Type II diabetes mellitus with neuropathy. A1c in 8.2. Fasting sugars 189. She is on right medications. She has seen an rv service technician for the past year. Foot care discussed. check A1c. Blood work reviewed with patient and questions answered. Screening blood work before next appointment. General health concerns discussed with patient. Scribe services used to formulate this note under HIPAA compliance and under [place] law mandated for scribe services. Patient aware of service. Verbal consent and written consent taken from the patient. Patient understands and verbalizes understanding of the scribes services and all questions answered regarding scribes services. Patient agrees to use of scribes services. 01/28/2024 Excessive and frequent menstruation with regular cycle (ICD-10 - N92.0) 02/03/2024 Helicobacter pylori [H. pylori] as the cause of diseases classified elsewhere (ICD-10 - B96.81) Mrs. Marlow is a 48-year-old female Georgian speaking patient with type 2 diabetes mellitus and multiple psych issues here for follow up. She was recently diagnosed with H. pylori. She was not feeling well and had menorrhagia and she went to [facility]. She had CT abdomen and pelvis which showed fibroid and thickening of the uterus.Plan is as follows: H. pylori infection. She is currently on antibiotics for 2 weeks and then she will have a follow-up with GI for urea breath test Menorrhagia. She saw her water taxi operator and had a biopsy done and will go from there. She started on Tranxene acid tablets. Her hemoglobin and hematocrit were normal Generalized anxiety disorder. She is not currently seeing a psychiatrist. Increase fluoxetine to 40 mg daily and continue rest of the medications General health concerns discussed with patient and discharge summary from the ER visit reviewed and discussed with the patient and her son Headache. She also complained of headaches and she also have a pseudobulbar disorder. We will order MRI of the brain without contrast for further evaluation. She is having MRI of the spine under conscious sedation and this month. We will opportunity to do MRI of head at the same time Scribe services used to formulate this note under HIPAA compliance and under [place] law mandated for scribe services. Patient aware of service. Verbal consent and written consent taken from the patient. Patient understands and verbalizes understanding of the scribes services and all questions answered regarding scribes services. Patient agrees to use of scribes services. 02/03/2024 Leiomyoma of uterus, unspecified (ICD-10 - D25.9) Mrs. Marlow is a 48-year-old female Georgian speaking patient with type 2 diabetes mellitus and multiple psych issues here for follow up. She was recently diagnosed with H. pylori. She was not feeling well and had menorrhagia and she went to [facility]. She had CT abdomen and pelvis which showed fibroid and thickening of the uterus.Plan is as follows: H. pylori infection. She is currently on antibiotics for 2 weeks and then she will have a follow-up with GI for urea breath test Menorrhagia. She saw her water taxi operator and had a biopsy done and will go from there. She started on Tranxene acid tablets. Her hemoglobin and hematocrit were normal Generalized anxiety disorder. She is not currently seeing a psychiatrist. Increase fluoxetine to 40 mg daily and continue rest of the medications General health concerns discussed with patient and discharge summary from the ER visit reviewed and discussed with the patient and her son Headache. She also complained of headaches and she also have a pseudobulbar disorder. We will order MRI of the brain without contrast for further evaluation. She is having MRI of the spine under conscious sedation and this month. We will opportunity to do MRI of head at the same time Scribe services used to formulate this note under HIPAA compliance and under [place] law mandated for scribe services. Patient aware of service. Verbal consent and written consent taken from the patient. Patient understands and verbalizes understanding of the scribes services and all questions answered regarding scribes services. Patient agrees to use of scribes services. 03/08/2024 Diabetes mellitus due to underlying condition with diabetic neuropathy, unspecified (ICD-10 - E08.40) Mrs. Marlow is a 48-year-old female Georgian-speaking patient with type 2 diabetes mellitus and multiple psych issues here for follow up on MRI result. MRI of the brain and cervical were done on February 15. Findings are unremarkable for intracranial mass or mass effect. Cervical spine core is normal just small central disc protrusion on C3-C4 and C5-C6. DM: - Last A1C was 7.1 goal is below 7. Patient is educated lifestyle modifications. We will recheck A1C. COntinue on the same regimen. HTN: - Is well controlled. Continue on the same regimen. Anemia: Recent blood work showed iron deficiency anemia, secondary to menorrhagia. Continue on ferrous sulfate. Menstrual period irregular: - She is currently following up with obgyn. Based on recent CT scan patient has leiomyoma. Per patient bx is negative for malignancy. Finished Tranexamic acid. - Has an U/S of the pelvis coming up through obgyn. Also, they'll refer her for mammogram for screening. GERD: Pylori: - Patient has finished the antibiotic course. Recently seen by GI at [facility] with LISA Whitfield on February 22. She is currently on famotidine at night and lansoprazole. Recommended FOD MAP diet. Avoid triggers. Has an upcoming appt in March. And scheduled on for EGD and C-scope June 15. - CT of the abdomen and pelvis, showed a 1.8cm gallstone in the gallbladder Patient seen and examined with PA. Agree with the above mentioned assessment and plan 03/08/2024 Essential (primary) hypertension (ICD-10 - I10) Mrs. Marlow is a 48-year-old female Georgian-speaking patient with type 2 diabetes mellitus and multiple psych issues here for follow up on MRI result. MRI of the brain and cervical were done on February 15. Findings are unremarkable for intracranial mass or mass effect. Cervical spine core is normal just small central disc protrusion on C3-C4 and C5-C6. DM: - Last A1C was 7.1 goal is below 7. Patient is educated lifestyle modifications. We will recheck A1C. COntinue on the same regimen. HTN: - Is well controlled. Continue on the same regimen. Anemia: Recent blood work showed iron deficiency anemia, secondary to menorrhagia. Continue on ferrous sulfate. Menstrual period irregular: - She is currently following up with obgyn. Based on recent CT scan patient has leiomyoma. Per patient bx is negative for malignancy. Finished Tranexamic acid. - Has an U/S of the pelvis coming up through obgyn. Also, they'll refer her for mammogram for screening. GERD: Pylori: - Patient has finished the antibiotic course. Recently seen by GI at [facility] with LISA Whitfield on February 22. She is currently on famotidine at night and lansoprazole. Recommended FOD MAP diet. Avoid triggers. Has an upcoming appt in March. And scheduled on for EGD and C-scope June 15. - CT of the abdomen and pelvis, showed a 1.8cm gallstone in the gallbladder Patient seen and examined with PA. Agree with the above mentioned assessment and plan 07/12/2024 Other cholelithiasis without obstruction (ICD-10 - K80.80) Mrs. Marlow is a 48-year-old female Georgian-speaking patient with type 2 diabetes mellitus and multiple psych issues here for abdominal pain. Two days ago, she went to [facility] ER for recurrent abdominal pain. Ultrasound of abdomen and pelvis was remarkable for gallstone measuring about 1.8cm. Blood work remarkable for Hgb of 8.1 previously 11.1 normal Lipase. Plan as follows: Cholelithiasis w/o obstruction: - Recent U/S showed gallstone measuring about 1.8cm w/o obstruction or signs of cholecystitis. Unclear if GI surgeon was consulted. It is recurrent symptomatic cholelithiasis induced with eating. PE is positive for rodriguez sign and tender in the epigastric area. Started patient on Tramadol for pain. Referred to GI surgeon for consultation. - Ongoing epigastric pain, she has an appt with GI in August. Per record review, GI have considered EGD in October but patient deferred as she felt anxious. Suggested EGD to further delineate cause of persistent epigastric pain. Iron deficiency anemia Menorrhagia Fibroids - Patient has hx of iron deficiency anemia secondary to menorrhagia and recent finding of Fibroids. She has an appt July 13 with Obgyn to further discuss heavy menstruation. - Hgb in the ER of 8.1 previous Hgb 11.1. Per our record previous hgb of 9.1. I ordered CBC to check on Hgb. If Hgb is 7 or below then patient will be sent to ER for blood transfusion. Otherwise, she will be referred to animal hospital clerk. I have rendered the services for this patient under direct supervision of Dr. Mojica, who did not see the patient but was available upon request 07/12/2024 Anemia, unspecified type (ICD-10 - D64.9) Mrs. Marlow is a 48-year-old female Georgian-speaking patient with type 2 diabetes mellitus and multiple psych issues here for abdominal pain. Two days ago, she went to [facility] for recurrent abdominal pain. Ultrasound of abdomen and pelvis was remarkable for gallstone measuring about 1.8cm. Blood work remarkable for Hgb of 8.1 previously 11.1 normal Lipase. Plan as follows: Cholelithiasis w/o obstruction: - Recent U/S showed gallstone measuring about 1.8cm w/o obstruction or signs of cholecystitis. Unclear if GI surgeon was consulted. It is recurrent symptomatic cholelithiasis induced with eating. PE is positive for rodriguez sign and tender in the epigastric area. Started patient on Tramadol for pain. Referred to GI surgeon for consultation. - Ongoing epigastric pain, she has an appt with GI in August. Per record review, GI have considered EGD in October but patient deferred as she felt anxious. Suggested EGD to further delineate cause of persistent epigastric pain. Iron deficiency anemia Menorrhagia Fibroids - Patient has hx of iron deficiency anemia secondary to menorrhagia and recent finding of Fibroids. She has an appt July 13 with Obgyn to further discuss heavy menstruation. - Hgb in the ER of 8.1 previous Hgb 11.1. Per our record previous hgb of 9.1. I ordered CBC to check on Hgb. If Hgb is 7 or below then patient will be sent to ER for blood transfusion. Otherwise, she will be referred to animal hospital clerk. I have rendered the services for this patient under direct supervision of Dr. Mojica, who did not see the patient but was available upon request 07/18/2024 Other cholelithiasis without obstruction (ICD-10 - K80.80) 08/08/2024 Other cholelithiasis without obstruction (ICD-10 - K80.80) 08/15/2024 Pre-operative clearance (ICD-10 - Z01.818) Mrs. Marlow is a 49-year-old female Georgian-speaking patient with type 2 diabetes mellitus and multiple psych issues here for pre-op clearance for BL upper blepharoplasty w/ Bilateral Upper eyelid ptosis on 08/22/24. Plan as follows: Cardiac assessment. Patient can easily do 4 METS. Blood pressure and exam is within normal limits. Pulmonary assessment. Lung exam is normal. No further Intervention NPO on the day of surgery. Take your medications after the surgery. Hold NSAIDs and aspirin 5 days before the procedure. EKG is performed in the office today Heart rate of [address] No ST elevation/depressio n. No bundle branch block. Normal intervals. Bloodwork has been reviewed. Low risk procedure in a low risk patient. No contraindications for the procedure at this point in time. Menorrhagia Anemia - Improved hemoglobin of 9.9 previously 8.3. Platelet count is elevated, reactive. She is currently on TXA, iron supplements twice a day. Managed by Obgyn. She will be getting an IUD to regulate period. Cholelithiasis: - She is currently following up with GI surgeon. I have rendered the services for this patient under direct supervision of Dr. Mojica, who did not see the patient but was available upon request 12/03/2023 Diabetes mellitus due to underlying condition with diabetic neuropathy, unspecified (ICD-10 - E08.40) Mrs. Marlow is a 48-year-old female Georgian speaking patient with type 2 diabetes mellitus and multiple psych issues here complaining of severe stomach pain. Plan is as follows: Type II diabetes mellitus with neuropathy. She is on right medications. She has seen an rv service technician for the past year. Foot care discussed. Check A1c. MARIANNA/MDD/Insomnia. She was seen at [facility], all her exams are negative and was advised that her symptoms may be caused by anxiety. She may not be taking her medications as directed. Advised to take Lorazepam 0.5 MG as needed at this point and she was advised to touchbase with Psychiatry for review of her medications. She may also benefit from seeing a Psychologist. Referred to Psychiatry. Advised to bring the list of her updated medications next visit. patient daughter was advised to bring updated list of all her medications for review General health concerns discussed with patient discharge or from [facility] reviewed Scribe services used to formulate this note under HIPAA compliance and under [place] law mandated for scribe services. Patient aware of service. Verbal consent and written consent taken from the patient. Patient understands and verbalizes understanding of the scribes services and all questions answered regarding scribes services. Patient agrees to use of scribes services. 12/03/2023 Generalized anxiety disorder (ICD-10 - F41.1) Mrs. Marlow is a 48-year-old female Georgian speaking patient with type 2 diabetes mellitus and multiple psych issues here complaining of severe stomach pain. Plan is as follows: Type II diabetes mellitus with neuropathy. She is on right medications. She has seen an rv service technician for the past year. Foot care discussed. Check A1c. MARIANNA/MDD/Insomnia. She was seen at [facility], all her exams are negative and was advised that her symptoms may be caused by anxiety. She may not be taking her medications as directed. Advised to take Lorazepam 0.5 MG as needed at this point and she was advised to touchbase with Psychiatry for review of her medications. She may also benefit from seeing a Psychologist. Referred to Psychiatry. Advised to bring the list of her updated medications next visit. patient daughter was advised to bring updated list of all her medications for review General health concerns discussed with patient discharge or from [facility] reviewed Scribe services used to formulate this note under HIPAA compliance and under [place] law mandated for scribe services. Patient aware of service. Verbal consent and written consent taken from the patient. Patient understands and verbalizes understanding of the scribes services and all questions answered regarding scribes services. Patient agrees to use of scribes services. 12/03/2023 Insomnia, unspecified (ICD-10 - G47.00) Mrs. Marlow is a 48-year-old female Georgian speaking patient with type 2 diabetes mellitus and multiple psych issues here complaining of severe stomach pain. Plan is as follows: Type II diabetes mellitus with neuropathy. She is on right medications. She has seen an rv service technician for the past year. Foot care discussed. Check A1c. MARIANNA/MDD/Insomnia. She was seen at [facility], all her exams are negative and was advised that her symptoms may be caused by anxiety. She may not be taking her medications as directed. Advised to take Lorazepam 0.5 MG as needed at this point and she was advised to touchbase with Psychiatry for review of her medications. She may also benefit from seeing a Psychologist. Referred to Psychiatry. Advised to bring the list of her updated medications next visit. patient daughter was advised to bring updated list of all her medications for review General health concerns discussed with patient discharge or from [facility] reviewed Scribe services used to formulate this note under HIPAA compliance and under [place] law mandated for scribe services. Patient aware of service. Verbal consent and written consent taken from the patient. Patient understands and verbalizes understanding of the scribes services and all questions answered regarding scribes services. Patient agrees to use of scribes services. 08/15/2024 Anemia, unspecified type (ICD-10 - D64.9) Mrs. Marlow is a 49-year-old female Georgian-speaking patient with type 2 diabetes mellitus and multiple psych issues here for pre-op clearance for BL upper blepharoplasty w/ Bilateral Upper eyelid ptosis on 08/22/24. Plan as follows: Cardiac assessment. Patient can easily do 4 METS. Blood pressure and exam is within normal limits. Pulmonary assessment. Lung exam is normal. No further Intervention NPO on the day of surgery. Take your medications after the surgery. Hold NSAIDs and aspirin 5 days before the procedure. EKG is performed in the office today Heart rate of [address] bpm[address] Sin[address] rhythm[address] No ST elevation/depressio n. No bundle branch block. Normal intervals. Bloodwork has been reviewed. Low risk procedure in a low risk patient. No contraindications for the procedure at this point in time. Menorrhagia Anemia - Improved hemoglobin of 9.9 previously 8.3. Platelet count is elevated, reactive. She is currently on TXA, iron supplements twice a day. Managed by Obgyn. She will be getting an IUD to regulate period. Cholelithiasis: - She is currently following up with GI surgeon. I have rendered the services for this patient under direct supervision of Dr. Mojica, who did not see the patient but was available upon request 07/12/2024 Diabetes mellitus due to underlying condition with diabetic neuropathy, unspecified (ICD-10 - E08.40) Mrs. Marlow is a 48-year-old female Georgian-speaking patient with type 2 diabetes mellitus and multiple psych issues here for abdominal pain. Two days ago, she went to [facility] ER for recurrent abdominal pain. Ultrasound of abdomen and pelvis was remarkable for gallstone measuring about 1.8cm. Blood work remarkable for Hgb of 8.1 previously 11.1 normal Lipase. Plan as follows: Cholelithiasis w/o obstruction: - Recent U/S showed gallstone measuring about 1.8cm w/o obstruction or signs of cholecystitis. Unclear if GI surgeon was consulted. It is recurrent symptomatic cholelithiasis induced with eating. PE is positive for rodriguez sign and tender in the epigastric area. Started patient on Tramadol for pain. Referred to GI surgeon for consultation. - Ongoing epigastric pain, she has an appt with GI in August. Per record review, GI have considered EGD in October but patient deferred as she felt anxious. Suggested EGD to further delineate cause of persistent epigastric pain. Iron deficiency anemia Menorrhagia Fibroids - Patient has hx of iron deficiency anemia secondary to menorrhagia and recent finding of Fibroids. She has an appt July 13 with Obgyn to further discuss heavy menstruation. - Hgb in the ER of 8.1 previous Hgb 11.1. Per our record previous hgb of 9.1. I ordered CBC to check on Hgb. If Hgb is 7 or below then patient will be sent to ER for blood transfusion. Otherwise, she will be referred to animal hospital clerk. I have rendered the services for this patient under direct supervision of Dr. Mojica, who did not see the patient but was available upon request 02/03/2024 Abnormal uterine and vaginal bleeding, unspecified (ICD-10 - N93.9) Mrs. Marlow is a 48-year-old female Georgian speaking patient with type 2 diabetes mellitus and multiple psych issues here for follow up. She was recently diagnosed with H. pylori. She was not feeling well and had menorrhagia and she went to [facility]. She had CT abdomen and pelvis which showed fibroid and thickening of the uterus.Plan is as follows: H. pylori infection. She is currently on antibiotics for 2 weeks and then she will have a follow-up with GI for urea breath test Menorrhagia. She saw her water taxi operator and had a biopsy done and will go from there. She started on Tranxene acid tablets. Her hemoglobin and hematocrit were normal Generalized anxiety disorder. She is not currently seeing a psychiatrist. Increase fluoxetine to 40 mg daily and continue rest of the medications General health concerns discussed with patient and discharge summary from the ER visit reviewed and discussed with the patient and her son Headache. She also complained of headaches and she also have a pseudobulbar disorder. We will order MRI of the brain without contrast for further evaluation. She is having MRI of the spine under conscious sedation and this month. We will opportunity to do MRI of head at the same time Scribe services used to formulate this note under HIPAA compliance and under [place] law mandated for scribe services. Patient aware of service. Verbal consent and written consent taken from the patient. Patient understands and verbalizes understanding of the scribes services and all questions answered regarding scribes services. Patient agrees to use of scribes services. 03/08/2024 Anemia, unspecified (ICD-10 - D64.9) Mrs. Marlow is a 48-year-old female Georgian-speaking patient with type 2 diabetes mellitus and multiple psych issues here for follow up on MRI result. MRI of the brain and cervical were done on February 15. Findings are unremarkable for intracranial mass or mass effect. Cervical spine core is normal just small central disc protrusion on C3-C4 and C5-C6. DM: - Last A1C was 7.1 goal is below 7. Patient is educated lifestyle modifications. We will recheck A1C. COntinue on the same regimen. HTN: - Is well controlled. Continue on the same regimen. Anemia: Recent blood work showed iron deficiency anemia, secondary to menorrhagia. Continue on ferrous sulfate. Menstrual period irregular: - She is currently following up with obgyn. Based on recent CT scan patient has leiomyoma. Per patient bx is negative for malignancy. Finished Tranexamic acid. - Has an U/S of the pelvis coming up through obgyn. Also, they'll refer her for mammogram for screening. GERD: Pylori: - Patient has finished the antibiotic course. Recently seen by GI at [facility] with LISA Whitfield on February 22. She is currently on famotidine at night and lansoprazole. Recommended FOD MAP diet. Avoid triggers. Has an upcoming appt in March. And scheduled on for EGD and C-scope June 15. - CT of the abdomen and pelvis, showed a 1.8cm gallstone in the gallbladder Patient seen and examined with PA. Agree with the above mentioned assessment and plan 11/04/2023 Diabetes mellitus due to underlying condition with diabetic neuropathy, unspecified (ICD-10 - E08.40) Mrs. Marlow is a 48-year-old female Georgian speaking patient with type 2 diabetes mellitus and multiple psych issues here for follow up. She complains of vaginal irritation and burning sensation with urination. It is associated with vaginal discharge. Plan is as follows: UTI. She saw nephrology in the past couple of weeks and she was started on GLP-1 and she has A1c of 8.2. She has vaginal discharge and burning sensations. Urine dip positive.Start Bactrim 800-160 MG BID for 3 days and Diflucan 150 MG. Type II diabetes mellitus with neuropathy. A1c in 8.2. Fasting sugars 189. She is on right medications. She has seen an rv service technician for the past year. Foot care discussed. check A1c. Blood work reviewed with patient and questions answered. Screening blood work before next appointment. General health concerns discussed with patient. Scribe services used to formulate this note under HIPAA compliance and under [place] law mandated for scribe services. Patient aware of service. Verbal consent and written consent taken from the patient. Patient understands and verbalizes understanding of the scribes services and all questions answered regarding scribes services. Patient agrees to use of scribes services. 02/03/2024 Generalized anxiety disorder (ICD-10 - F41.1) Mrs. Marlow is a 48-year-old female Georgian speaking patient with type 2 diabetes mellitus and multiple psych issues here for follow up. She was recently diagnosed with H. pylori. She was not feeling well and had menorrhagia and she went to [facility]. She had CT abdomen and pelvis which showed fibroid and thickening of the uterus.Plan is as follows: H. pylori infection. She is currently on antibiotics for 2 weeks and then she will have a follow-up with GI for urea breath test Menorrhagia. She saw her water taxi operator and had a biopsy done and will go from there. She started on Tranxene acid tablets. Her hemoglobin and hematocrit were normal Generalized anxiety disorder. She is not currently seeing a psychiatrist. Increase fluoxetine to 40 mg daily and continue rest of the medications General health concerns discussed with patient and discharge summary from the ER visit reviewed and discussed with the patient and her son Headache. She also complained of headaches and she also have a pseudobulbar disorder. We will order MRI of the brain without contrast for further evaluation. She is having MRI of the spine under conscious sedation and this month. We will opportunity to do MRI of head at the same time Scribe services used to formulate this note under HIPAA compliance and under [place] law mandated for scribe services. Patient aware of service. Verbal consent and written consent taken from the patient. Patient understands and verbalizes understanding of the scribes services and all questions answered regarding scribes services. Patient agrees to use of scribes services. 03/08/2024 Menstrual periods irregular (ICD-10 - N92.6) Mrs. Marlow is a 48-year-old female Georgian-speaking patient with type 2 diabetes mellitus and multiple psych issues here for follow up on MRI result. MRI of the brain and cervical were done on February 15. Findings are unremarkable for intracranial mass or mass effect. Cervical spine core is normal just small central disc protrusion on C3-C4 and C5-C6. DM: - Last A1C was 7.1 goal is below 7. Patient is educated lifestyle modifications. We will recheck A1C. COntinue on the same regimen. HTN: - Is well controlled. Continue on the same regimen. Anemia: Recent blood work showed iron deficiency anemia, secondary to menorrhagia. Continue on ferrous sulfate. Menstrual period irregular: - She is currently following up with obgyn. Based on recent CT scan patient has leiomyoma. Per patient bx is negative for malignancy. Finished Tranexamic acid. - Has an U/S of the pelvis coming up through obgyn. Also, they'll refer her for mammogram for screening. GERD: Pylori: - Patient has finished the antibiotic course. Recently seen by GI at [facility] with LISA Whitfield on February 22. She is currently on famotidine at night and lansoprazole. Recommended FOD MAP diet. Avoid triggers. Has an upcoming appt in March. And scheduled on for EGD and C-scope June 15. - CT of the abdomen and pelvis, showed a 1.8cm gallstone in the gallbladder Patient seen and examined with PA. Agree with the above mentioned assessment and plan 08/15/2024 Menstrual periods irregular (ICD-10 - N92.6) Mrs. Marlow is a 49-year-old female Georgian-speaking patient with type 2 diabetes mellitus and multiple psych issues here for pre-op clearance for BL upper blepharoplasty w/ Bilateral Upper eyelid ptosis on 08/22/24. Plan as follows: Cardiac assessment. Patient can easily do 4 METS. Blood pressure and exam is within normal limits. Pulmonary assessment. Lung exam is normal. No further Intervention NPO on the day of surgery. Take your medications after the surgery. Hold NSAIDs and aspirin 5 days before the procedure. EKG is performed in the office today Heart rate of 76 bpm. Sin[address] rhythm. No ST elevation/depressio n. No bundle branch block. Normal intervals. Bloodwork has been reviewed. Low risk procedure in a low risk patient. No contraindications for the procedure at this point in time. Menorrhagia Anemia - Improved hemoglobin of 9.9 previously 8.3. Platelet count is elevated, reactive. She is currently on TXA, iron supplements twice a day. Managed by Obgyn. She will be getting an IUD to regulate period. Cholelithiasis: - She is currently following up with GI surgeon. I have rendered the services for this patient under direct supervision of Dr. Mojica, who did not see the patient but was available upon request 12/03/2023 Major depressive disorder, recurrent, moderate (ICD-10 - F33.1) Mrs. Marlow is a 48-year-old female Georgian speaking patient with type 2 diabetes mellitus and multiple psych issues here complaining of severe stomach pain. Plan is as follows: Type II diabetes mellitus with neuropathy. She is on right medications. She has seen an rv service technician for the past year. Foot care discussed. Check A1c. MARIANNA/MDD/Insomnia. She was seen at [facility], all her exams are negative and was advised that her symptoms may be caused by anxiety. She may not be taking her medications as directed. Advised to take Lorazepam 0.5 MG as needed at this point and she was advised to touchbase with Psychiatry for review of her medications. She may also benefit from seeing a Psychologist. Referred to Psychiatry. Advised to bring the list of her updated medications next visit. patient daughter was advised to bring updated list of all her medications for review General health concerns discussed with patient discharge or from [facility] reviewed Scribe services used to formulate this note under HIPAA compliance and under [place] law mandated for scribe services. Patient aware of service. Verbal consent and written consent taken from the patient. Patient understands and verbalizes understanding of the scribes services and all questions answered regarding scribes services. Patient agrees to use of scribes services. 03/08/2024 Gastro-esophageal reflux disease without esophagitis (ICD-10 - K21.9) Mrs. Marlow is a 48-year-old female Georgian-speaking patient with type 2 diabetes mellitus and multiple psych issues here for follow up on MRI result. MRI of the brain and cervical were done on February 15. Findings are unremarkable for intracranial mass or mass effect. Cervical spine core is normal just small central disc protrusion on C3-C4 and C5-C6. DM: - Last A1C was 7.1 goal is below 7. Patient is educated lifestyle modifications. We will recheck A1C. COntinue on the same regimen. HTN: - Is well controlled. Continue on the same regimen. Anemia: Recent blood work showed iron deficiency anemia, secondary to menorrhagia. Continue on ferrous sulfate. Menstrual period irregular: - She is currently following up with obgyn. Based on recent CT scan patient has leiomyoma. Per patient bx is negative for malignancy. Finished Tranexamic acid. - Has an U/S of the pelvis coming up through obgyn. Also, they'll refer her for mammogram for screening. GERD: Pylori: - Patient has finished the antibiotic course. Recently seen by GI at [facility] with LISA Whiftield on February 22. She is currently on famotidine at night and lansoprazole. Recommended FOD MAP diet. Avoid triggers. Has an upcoming appt in March. And scheduled on for EGD and C-scope June 15. - CT of the abdomen and pelvis, showed a 1.8cm gallstone in the gallbladder Patient seen and examined with PA. Agree with the above mentioned assessment and plan 08/15/2024 Other cholelithiasis without obstruction (ICD-10 - K80.80) Mrs. Marlow is a 49-year-old female Georgian-speaking patient with type 2 diabetes mellitus and multiple psych issues here for pre-op clearance for BL upper blepharoplasty w/ Bilateral Upper eyelid ptosis on 08/22/24. Plan as follows: Cardiac assessment. Patient can easily do 4 METS. Blood pressure and exam is within normal limits. Pulmonary assessment. Lung exam is normal. No further Intervention NPO on the day of surgery. Take your medications after the surgery. Hold NSAIDs and aspirin 5 days before the procedure. EKG is performed in the office today Heart rate of [address]. No ST elevation/depressio n. No bundle branch block. Normal intervals. Bloodwork has been reviewed. Low risk procedure in a low risk patient. No contraindications for the procedure at this point in time. Menorrhagia Anemia - Improved hemoglobin of 9.9 previously 8.3. Platelet count is elevated, reactive. She is currently on TXA, iron supplements twice a day. Managed by Obgyn. She will be getting an IUD to regulate period. Cholelithiasis: - She is currently following up with GI surgeon. I have rendered the services for this patient under direct supervision of Dr. Mojica, who did not see the patient but was available upon request 02/03/2024 Headache, unspecified (ICD-10 - R51.9) Mrs. Marlow is a 48-year-old female Georgian speaking patient with type 2 diabetes mellitus and multiple psych issues here for follow up. She was recently diagnosed with H. pylori. She was not feeling well and had menorrhagia and she went to [facility]. She had CT abdomen and pelvis which showed fibroid and thickening of the uterus.Plan is as follows: H. pylori infection. She is currently on antibiotics for 2 weeks and then she will have a follow-up with GI for urea breath test Menorrhagia. She saw her water taxi operator and had a biopsy done and will go from there. She started on Tranxene acid tablets. Her hemoglobin and hematocrit were normal Generalized anxiety disorder. She is not currently seeing a psychiatrist. Increase fluoxetine to 40 mg daily and continue rest of the medications General health concerns discussed with patient and discharge summary from the ER visit reviewed and discussed with the patient and her son Headache. She also complained of headaches and she also have a pseudobulbar disorder. We will order MRI of the brain without contrast for further evaluation. She is having MRI of the spine under conscious sedation and this month. We will opportunity to do MRI of head at the same time Scribe services used to formulate this note under HIPAA compliance and under [place] law mandated for scribe services. Patient aware of service. Verbal consent and written consent taken from the patient. Patient understands and verbalizes understanding of the scribes services and all questions answered regarding scribes services. Patient agrees to use of scribes services. Plan Of Treatment Pending Test Test Name Order Date MRI : Brain 02/03/2024 Comp. Metabolic Panel (14) 03/08/2024 MRI : Brain without Contrast 02/07/2024 COMPREHENSIVE METABOLIC PANEL 09/30/2022 H. PYLORI ANTIGEN, STOOL 11/27/2019 HEMOGLOBIN A1C 06/05/2022 HEMOGLOBIN A1C WITH EST GLUCOSE 09/30/19 23 HEMOGLOBIN A1C WITH EST GLUCOSE 01/29/20 23 TSH WITH REFLEX TO FT4 09/30/2022 CBC/Differential (No Platelet)-[id number] CBC/Differential (No Platelet)-[id number] A1c w/GlycoMark(R) Reflex-[id number] Next Appt Details Provider Name:Tariq Llamas, 1 11/13/2023 01:30:00 PM, [address] [place] [address], [phone], Insurance Providers Payer Name Payer Address Payer Phone Subscriber Number Group Number Insured Name Patient Relationship to Insured Coverage Start Date Coverage End Date [facility]) 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
== END 2024-09-04 10:30 | disposition home or self-care (01) ==
PROVIDERS: PCP Hospitalist; Visit Provider Nurse Practitioner Family
DX: R10.13 Epigastric pain (principal); R14.0 Abdominal distension (gaseous); K59.01 Slow transit constipation; K58.9 Irritable bowel syndrome, unspecified; A04.8 Other specified bacterial intestinal infections; K80.20 Calculus of gallbladder without cholecystitis without obstruction
CPT/HCPCS: 99214; G2211

== ENCOUNTER → 2024-09-04 08:59 | Outpatient (BNVA) | payer OTHER, SELFPAY | PROVIDERS: PCP Hospitalist; Visit Provider Nurse Practitioner Family | DX: K80.20 Calculus of gallbladder without cholecystitis without obstruction (principal); K59.01 Slow transit constipation; K58.9 Irritable bowel syndrome, unspecified; R10.13 Epigastric pain; R14.0 Abdominal distension (gaseous); A04.8 Other specified bacterial intestinal infections | CPT/HCPCS: 99202; 99212 ==

== ENCOUNTER 2024-09-04 10:09 | Outpatient (AMB) | payer OTHER, SELFPAY ==
[2024-09-04 10:10] VITALS: BP 142/86; PULSE 74; BMI 33.7
--- NOTE | 2024-09-04 10:10 | MHC.OFFVIS ---
Vital Signs 09/04/24 10:10 Height 5 ft 3 in Weight 190 lb BMI 33.7 BP 142/86 H Blood Pressure Location Rt brachial Position Sitting Pulse 74 Intake Visit Reasons: cholelithiasis Intake Note: Patient referred by Amanda GONZALEZ for cholelithiasis. Patient c/o; RUQ pain tht at times spreads to back. ABD US: 07-10-2024. Surgical Nurse Practitioner Required: Yes Surgical Nurse Practitioner Name: [id number] Aysar~ [place] Accompanied by: Self / Same As Patient Allergies No Known Allergies Allergy (Verified 09/04/24 10:12) HPI Comments Details: Patient presents here from GI as a referral because of symptomatic cholelithiasis. She has been seen by the GI clinic and has had symptoms of right upper quadrant pain radiating around to her back times a year and a half time. Interview was done through tele school community relations coordinator. She otherwise tolerating a diet. She has regular bowel habits. He has never been jaundiced before. Only past surgical history for section. Chart was reviewed and patient evaluated. Past medical history includes hypertension and diabetes [facility] Medical History Acid indigestion Back pain Palpitations Leukocytosis Depression Anxiety Asthma Migraine Type 2 diabetes mellitus with polyneuropathy Type 2 diabetes mellitus with hyperglycemia, with long-term current use of insulin Essential hypertension Vitamin D insufficiency Surgical History Hx of section Family History Father Hypertension Diabetes Heart disease Mother Diabetes Heart disease Hypertension Social History Household Members: Family and Children Alcohol intake: current Alcohol intake frequency: does not drink Patient Tobacco Use Status: Never used Tobacco Physical Exam Vital Signs: Last Vital Signs Pulse 74 09/04/24 10:10 BP 142/86 H 09/04/24 10:10 BMI result Body Mass Index 33.7 Chest Other: Chest breath sounds bilaterally, HS 1 in 2 GI Other: Abdomen moderately corpulent, soft, benign Assessment & Plan Assessment & Plan (1) Symptomatic cholelithiasis: Code(s): K80.20 - Calculus of gallbladder without cholecystitis without obstruction Category: Surgical Plan Therapeutic options reviewed with the patient which consistent with conservative therapy with laparoscopic possible open cholecystectomy. Because of severity of her symptoms which have included each visit to the ER because of severe pain, she would like to proceed with the latter. Risks, benefits, alternatives laparoscopic possible open cholecystectomy reviewed with the patient and included but not limited to bleeding, infection, recurrence of symptoms, numbness, pain, scarring bowel or bile duct injury or leak and the patient wishes to proceed. All questions answered. Arrangements were made for this on a day which is convenient for her. Coding Level of Care Code New Pt Level 5 (27128) Diagnoses Symptomatic cholelithiasis K80.20
== END 2024-09-04 10:52 | disposition home or self-care (01) ==
LOC: HO.HGS 10:09
PROVIDERS: PCP Hospitalist; Visit Provider Surgery
DX: K80.20 Calculus of gallbladder without cholecystitis without obstruction (principal)
CPT/HCPCS: 99204

== ENCOUNTER 2024-09-19 12:07 | Day surgery (SDC) | payer OTHER, SELFPAY ==
[2024-09-15 13:15] VITALS: BMI 33.7
--- NOTE | 2024-09-18 10:36 | HO.ANESPROP2 ---
Documented by User: Anne Marie Coreas NP 09/18/24 10:40 HPI - Anesthesia Eval Consult details Narrative: 49yo F for Upper Endoscopy and Colonoscopy [facility] Active Problems Active Problems: All Active Problems Symptomatic cholelithiasis (Acute) Type 2 diabetes mellitus with polyneuropathy (Acute) Type 2 diabetes mellitus with hyperglycemia, with long-term current use of insulin (Acute) Essential hypertension (Acute) Vitamin D insufficiency (Acute) Past Medical History Medical History Acid indigestion Back pain Palpitations Leukocytosis Depression Anxiety Asthma Migraine Type 2 diabetes mellitus with polyneuropathy Type 2 diabetes mellitus with hyperglycemia, with long-term current use of insulin Essential hypertension Vitamin D insufficiency Family History Family History Father Hypertension Diabetes Heart disease Mother Diabetes Heart disease Hypertension Surgical History Surgical History Hx of section Social History Social History Household Members: Family and Children Alcohol intake: current Alcohol intake frequency: does not drink Patient Tobacco Use Status: Never used Tobacco Second Hand Smoke Exposure: No Meds Allergies Allergy/AdvReac Type Severity Reaction Status Date / Time No Known Allergies Allergy Verified 09/04/24 10:12 Home Medications ?Medication ?Instructions ?Recorded ?Confirmed ?Last Taken ?Type albuterol sulfate 90 mcg/actuation 2 puff inhalation Q4-5H PRN 07/04/20 09/15/24 Unknown History aerosol inhaler Shortness Of Breath amitriptyline 25 mg tablet 25 mg PO DAILY 07/04/20 09/15/24 Unknown History fluticasone propionate 50 1 spray intranasal DAILY 07/04/20 09/15/24 Unknown History mcg/actuation nasal spray,suspension (Flonase Allergy Relief) hydroxyzine HCl 25 mg tablet 25 mg PO BEDTIME 07/04/20 09/15/24 Unknown History lisinopril 10 mg tablet 10 mg PO DAILY 07/04/20 09/15/24 Unknown History quetiapine 25 mg tablet (Seroquel) 25 mg PO BEDTIME 07/04/20 09/15/24 Unknown History zolpidem 10 mg tablet (Ambien) 10 mg PO BEDTIME PRN Insomnia 07/04/20 09/15/24 Unknown History blood sugar diagnostic #10 ea 07/15/20 09/04/24 Unknown History loratadine 10 mg tablet (Allergy 10 mg PO DAILY PRN Allergy Symptoms 12/16/20 09/15/24 Unknown History Relief (loratadine)) meloxicam 7.5 mg tablet 7.5 mg PO DAILY 05/02/21 09/15/24 Unknown History aspirin 81 mg tablet,delayed 81 mg PO DAILY 11/22/23 09/15/24 Unknown History release calcium carbonate 500 mg PO BID 11/22/23 09/15/24 Unknown History latanoprost 0.005 % eye drops 1 drp ophthalmic (eye) BEDTIME 11/22/23 09/15/24 Unknown History metoprolol tartrate 25 mg tablet 12.5 mg PO BID 11/22/23 09/15/24 Unknown History baclofen 10 mg tablet 10 mg PO BID 09/04/24 09/15/24 Unknown History flash glucose scanning reader #1 ea 09/04/24 09/04/24 Unknown History (Datahero Sal 2 Crary) gabapentin 300 mg capsule 300 mg PO TID 09/04/24 09/15/24 Unknown History levonorgestrel 20.4 mcg/24 hr (up intrauterine 09/04/24 09/04/24 Unknown History to 8 yrs) 52 mg intrauterine device (Liletta) Exam Height,Weight and Vital Signs: Height 5 ft 3 in Weight 86.183 kg Pertinent Lab Results Pertinent Lab Results: Laboratory Tests 07/09/24 22:01 WBC 17.7 H Hgb 8.1 L D Hct 28.2 L D Plt Count 490 H Sodium 137 Potassium 4.1 Chloride 103 Carbon Dioxide 25 BUN 9 Creatinine 0.70 Narrative Narrative: EKG 06/2024 Vent. Rate : 066 BPM Atrial Rate : 066 BPM P-R Int : 184 ms QRS Dur : 078 ms QT Int : 402 ms P-R-T Axes : 005 020 029 degrees QTc Int : 421 ms Normal sinus rhythm Low voltage QRS Cannot rule out Anterior infarct (cited on or before 26-SEP-2016) Abnormal ECG When compared with ECG of 04-FEB-2024 02:36, Questionable change in initial forces of Septal leads Assessment and Plan Assessment Anesthesia Assessment: Chart Reviewed Documented by User: Jayy Gloria MD 09/19/24 13:08 [facility] Past Medical History Medical History Acid indigestion Back pain Palpitations Leukocytosis Depression Anxiety Asthma Migraine Type 2 diabetes mellitus with polyneuropathy Type 2 diabetes mellitus with hyperglycemia, with long-term current use of insulin Essential hypertension Vitamin D insufficiency Patient : No Family History Family History Father Hypertension Diabetes Heart disease Mother Diabetes Heart disease Hypertension Family history of problems with anesthesia: No Surgical History Surgical History Hx of section History of Problems with Anesthesia: No Social History Social History Household Members: Family and Children Alcohol intake: current Alcohol intake frequency: does not drink Patient Tobacco Use Status: Never used Tobacco Second Hand Smoke Exposure: No Meds Allergies Allergy/AdvReac Type Severity Reaction Status Date / Time No Known Allergies Allergy Verified 09/04/24 10:12 Home Medications ?Medication ?Instructions ?Recorded ?Confirmed ?Last Taken ?Type albuterol sulfate 90 mcg/actuation 2 puff inhalation Q4-5H PRN 07/04/20 09/15/24 Unknown History aerosol inhaler Shortness Of Breath amitriptyline 25 mg tablet 25 mg PO DAILY 07/04/20 09/15/24 Unknown History fluticasone propionate 50 1 spray intranasal DAILY 07/04/20 09/15/24 Unknown History mcg/actuation nasal spray,suspension (Flonase Allergy Relief) hydroxyzine HCl 25 mg tablet 25 mg PO BEDTIME 07/04/20 09/15/24 Unknown History lisinopril 10 mg tablet 10 mg PO DAILY 07/04/20 09/15/24 Unknown History quetiapine 25 mg tablet (Seroquel) 25 mg PO BEDTIME 07/04/20 09/15/24 Unknown History zolpidem 10 mg tablet (Ambien) 10 mg PO BEDTIME PRN Insomnia 07/04/20 09/15/24 Unknown History blood sugar diagnostic #10 ea 07/15/20 09/04/24 Unknown History loratadine 10 mg tablet (Allergy 10 mg PO DAILY PRN Allergy Symptoms 12/16/20 09/15/24 Unknown History Relief (loratadine)) meloxicam 7.5 mg tablet 7.5 mg PO DAILY 05/02/21 09/15/24 Unknown History aspirin 81 mg tablet,delayed 81 mg PO DAILY 11/22/23 09/15/24 Unknown History release calcium carbonate 500 mg PO BID 11/22/23 09/15/24 Unknown History latanoprost 0.005 % eye drops 1 drp ophthalmic (eye) BEDTIME 11/22/23 09/15/24 Unknown History metoprolol tartrate 25 mg tablet 12.5 mg PO BID 11/22/23 09/15/24 Unknown History baclofen 10 mg tablet 10 mg PO BID 09/04/24 09/15/24 Unknown History flash glucose scanning reader #1 ea 09/04/24 09/04/24 Unknown History (Datahero Sal 2 Crary) gabapentin 300 mg capsule 300 mg PO TID 09/04/24 09/15/24 Unknown History levonorgestrel 20.4 mcg/24 hr (up intrauterine 09/04/24 09/04/24 Unknown History to 8 yrs) 52 mg intrauterine device (Liletta) Exam Airway Mallampati Class: II TM Dist: >3cm Neck ROM: Full Loose/Missing/Broken Teeth: No Heart: ok Lungs: ok Assessment and Plan Assessment Anesthesia Assessment: Anesthesia Plan Discussed Final Anesthetic Review Family History of Problems with Anesthesia: No History of Problems with Anesthesia: No NPO: Yes ASA Class: II Final Preanesthetic Review: No Changes in Pt Med Stat, Meds/Allgs Chart Reviewed, Consent Obtained/Reviewed and Anes Risks/Benef Reviewed Patient Risk: Low Procedure Risk: Intermediate Anesthetic Plan Anesthetic Plan: Agree w/ Assess. and Plan and TIVA Disposition: Standard PACU
[2024-09-19 12:31] VITALS: BP 149/82; PULSE 84; RESP 16; TEMP 36.7; O2SAT 99
[2024-09-19 12:31] LABS: UPreg QC Valid YES; Urine Pregnancy NEGATIVE (NEGATIVE)
[2024-09-19] MEDS: Lactated Ringers 1,000 ML 100 ML IVCONT (12:42)
--- NOTE | 2024-09-19 13:05 | MHC.SHP ---
Pre-Procedural Eval Section A - 24 Hr Update-Section A only Date of Service: 09/19/24 The patient is an INPATIENT: No The patient has been examined within 24 hours of the surgical procedure. The History & Physical has been completed within 30 days and I have reviewed it.: Yes Section B - Complete if H&P > 30 days Chief Complaint: gerd,screening Allergies: Allergies Allergy/AdvReac Type Severity Reaction Status Date / Time No Known Allergies Allergy Verified 09/04/24 10:12 Plan Diagnosis/Plan: Unchanged I have reviewed the history and physical and performed a pertinent physical examination on my patient. No changes have occurred unless specified. Time Spent With Patient Time: Total time managing care of this patient today ____ minutes.
--- NOTE | 2024-09-19 13:44 | P.OPN-COLO_ITS ---
Colonoscopy Operative Note Operative Note Date of Service: 09/19/24 Narrative: Procedure: Upper endoscopy and colonoscopy Indication: Abd pain, H Pylori, iron deficiency anemia Endoscopist: Beatrice Aragon MD Anesthesia Provider: Anesthesia type: MAC Instrument: [id number] and [id number]-[id number] EGD Procedure:?? The procedure, indications, preparation and potential complications were reviewed with the patient, who indicated understanding and gave written informed consent to proceed. The endoscope was introduced through the mouth, and advanced to the 2nd part of the duodenum. The mucosa was carefully examined on slow withdrawal of the endoscope. The patient tolerated the procedure well. There were no immediate complications.? EGD Findings:? * Esophagus:? Normal esophageal mucosa was noted. The Z-line was at 35 cm. Cold forceps biopsies were taken from middle and lower esophagus to rule out eosinophilic esophagitis. * Stomach:? Mild erythema in the antrum. Retroflexion was performed in the cardia. Random cold forceps biopsies were taken from the stomach. * Duodenum:? Fissuring of the mucosa was noted in the duodenal bulb. Cold forceps biopsies were taken from the duodenal bulb and 2nd portion of the duodenum to rule out celiac sprue. Additional interventions: Due to history of recurrent H Pylori infection, sample was also sent to Micro for culture and sensitivity to tailor antibiotics. Colonoscopy Procedure:? The patient was then turned for the colonoscopy. A digital rectal exam was performed which was normal.? A distal attachment cap was affixed to the tip of the scope and the colonoscope was then inserted through the anus and advanced through the colon and advanced to the cecum at 70 cm.? Appendiceal orifice and ileocecal valve were identified. Mucosa was carefully examined under high definition white light as the instrument was slowly withdrawn in a retrograde panoramic fashion. Retroflexion was performed in rectum. The procedure was not difficult. The quality of the prep was BBPS: 0+2+2 = inadequate Withdrawal time 6 minutes Limitations: Poor prep Findings: Mucosa: Solid stool noted in the cecal pouch which could not be flushed out limiting visualization. Protruding lesions: * Medium internal hemorrhoids. Impression: 1. Normal esophagus (biopsy) 2. Gastritis (biopsy) 3. Abnormal duodenal mucosa (biopsy) 4. Poor prep 5. Internal hemorrhoids Recommendations:?? * Follow-up path and micro results * H Pylori treatment if biopsies + * Consider iron infusion/supplementation * Repeat colonoscopy will be booked in 6-12 months
[2024-09-19 13:49] VITALS: BP 114/81; PULSE 91; RESP 18; TEMP 36.3; O2SAT 98
[2024-09-19 14:04] VITALS: BP 125/80; PULSE 71; RESP 16; TEMP 36.1; O2SAT 98
[2024-09-19 14:39] LABS: Glucose, Whole Blood 135 mg/dL (60-115)
== END 2024-09-19 14:45 | disposition home or self-care (01) ==
PROVIDERS: Nurse Practitioner; PCP Hospitalist; Visit Provider Internal Medicine
PROC: (CPT 45378; principal; 2024-09-19 11:10)
DX: Z12.11 Encounter for screening for malignant neoplasm of colon (principal); K64.8 Other hemorrhoids; K59.01 Slow transit constipation; Z91.199 Patient's noncompliance with other medical treatment and regimen due to unspecified reason; K29.70 Gastritis, unspecified, without bleeding; K21.9 Gastro-esophageal reflux disease without esophagitis; D50.9 Iron deficiency anemia, unspecified; E11.9 Type 2 diabetes mellitus without complications; I10 Essential (primary) hypertension; E55.9 Vitamin D deficiency, unspecified; J45.909 Unspecified asthma, uncomplicated
CPT/HCPCS: 45378; 43239; 81025; 82947; 87081; 87205; 88305; 88342; J2003; J2704

== ENCOUNTER → 2024-09-19 12:07 | Outpatient (BNV) | payer OTHER, SELFPAY | PROVIDERS: PCP Hospitalist; Visit Provider Internal Medicine | DX: R10.9 Unspecified abdominal pain (principal); D50.9 Iron deficiency anemia, unspecified; B96.81 Helicobacter pylori [H. pylori] as the cause of diseases classified elsewhere; K29.70 Gastritis, unspecified, without bleeding; Z91.199 Patient's noncompliance with other medical treatment and regimen due to unspecified reason; K64.8 Other hemorrhoids | CPT/HCPCS: 43239; 45378 ==

== ENCOUNTER 2024-10-03 14:11 | Outpatient (AMB) | payer OTHER, SELFPAY ==
[2024-10-03 14:13] VITALS: BP 134/76; PULSE 74; O2SAT 100; BMI 34.2
--- NOTE | 2024-10-03 14:13 | A.OFFVIS_ITS ---
Vital Signs 10/03/24 14:13 Height 5 ft 3 in Weight 193 lb 1.999 oz BMI 34.2 BP 134/76 Blood Pressure Location Lt brachial Position Sitting Pulse 74 Pulse Source Pulse Oximeter Pulse Oximetry (%) 100 Oxygen Delivery Method Room Air Intake Visit Reasons: s/p egd/colon Intake Note: ESTABLISHED PATIENT Reason; s/p FUV Changes/Concerns? Pt would like to discuss recent difficulties with bloating and abd pain after eating. Pharmacy verified? [facility] Secured Entrance Monitor Required: Yes Secured Entrance Monitor Name: Patsy [id number] Accompanied by: Self / Same As Patient Allergies No Known Allergies Allergy (Verified 10/03/24 14:15) HPI HPI s/p egd/colon: Details: LAST VISIT Postprandial epigastric pain Postprandial abdominal bloating Constipation Dyspepsia IBS (irritable bowel syndrome) Helicobacter pylori (H. pylori) Cholelithiasis Plan Patient will start taking Dulcolax daily. Referral to General surgery for large gallstone and severe postprandial symptoms that send patient to ER few times in the past. What to expect before during and after procedure discussed with patient. Stressed the importance of good bowel prep and clear liquid diet. Patient will see me after the procedure. Patient will avoid food high in fat. Increase fluid intake and activity to promote better bowel motility. Patient is agreeable to current plan of care and verbalizes understanding of instructions. She was given the opportunity to ask questions and all questions answered. ? Thank you for allowing me to participate in her care Orders Referrals General Surgery Referral K80.20 Medications New bisacodyl (Dulcolax (bisacodyl)) 10 mg (2 x 5 mg) PO BEDTIME 180 tabs 4RF Changed Changed From polyethylene glycol 3350 238 grams orally; Mix Miralax with 64 oz of a clear liquid. Begin drinking at 5 pm the day before colonoscopy. 1 day 238 grams 0RF Changed To polyethylene glycol 3350 (Miralax) 238 grams orally; Mix Miralax with 64 oz of a clear liquid. Begin drinking at 5 pm the day before colonoscopy. 238 grams 0RF 1 day Refilled bisacodyl (Dulcolax (bisacodyl)) Take 4 tablets of Dulcolax at noon, the day before your colonoscopy 20 mg (4 x 5 mg) PO .once 4 tabs 0RF UPPER ENDOSCOPY AND COLONOSCOPY EGD Findings:? * Esophagus:? Normal esophageal mucosa was noted. The Z-line was at 35 cm. Cold forceps biopsies were taken from middle and lower esophagus to rule out eosinophilic esophagitis. * Stomach:? Mild erythema in the antrum. Retroflexion was performed in the cardia. Random cold forceps biopsies were taken from the stomach. * Duodenum:? Fissuring of the mucosa was noted in the duodenal bulb. Cold forceps biopsies were taken from the duodenal bulb and 2nd portion of the duodenum to rule out celiac sprue. Additional interventions: Due to history of recurrent H Pylori infection, sample was also sent to Micro for culture and sensitivity to tailor antibiotics. Colonoscopy Procedure:? The patient was then turned for the colonoscopy. A digital rectal exam was performed which was normal.? A distal attachment cap was affixed to the tip of the scope and the colonoscope was then inserted through the anus and advanced through the colon and advanced to the cecum at 70 cm.? Appendiceal orifice and ileocecal valve were identified. Mucosa was carefully examined under high definition white light as the instrument was slowly withdrawn in a retrograde panoramic fashion. Retroflexion was performed in rectum. The procedure was not difficult. The quality of the prep was BBPS: 0+2+2 = inadequate Withdrawal time 6 minutes Limitations: Poor prep Findings: Mucosa: Solid stool noted in the cecal pouch which could not be flushed out limiting visualization. Protruding lesions: * Medium internal hemorrhoids. Impression: 1. Normal esophagus (biopsy) 2. Gastritis (biopsy) 3. Abnormal duodenal mucosa (biopsy) 4. Poor prep 5. Internal hemorrhoids Recommendations:?? * Follow-up path and micro results * H Pylori treatment if biopsies + * Consider iron infusion/supplementation * Repeat colonoscopy will be booked in 6-12 months PATHOLOGY: Diagnosis A. Duodenum, biopsy: Duodenal mucosa with preserved villi and no specific change. B. Stomach, random, biopsy: Gastric body mucosa with minimal chronic inactive gastritis; negative for H. pylori, intestinal metaplasia and dysplasia. C. Esophagus, lower, biopsy: Squamous mucosa with no specific change; no columnar mucosa present. D. Esophagus, mid, biopsy: Squamous mucosa with no specific change; no columnar mucosa present TODAY'S VISIT: Patient is here today for follow-up and to discuss upper endoscopy and colonoscopy results. Patient denies any ill effects from the prep, anesthesia or procedure itself. Upper endoscopy with chronic inactive gastritis negative for esophagitis. Patient continues to have epigastric pain postprandially. Colonoscopy unable to complete as patient had suboptimal prep. Patient reports that because she is a diabetic she had breakfast in the morning day before the procedure. Patient continues to have trouble with her bowels. Taking Dulcolax and still is unable to have a bowel movement. Patient reports that she is also taking MiraLax in the morning. Patient was referred to general surgeon was supposed to have a cholecystectomy September 28, however patient states that she got nervous because she was told that she does not have to stop aspirin before the procedure. Patient has appointment with the surgeon next week. Patient denies any melena, hematochezia, unintentional weight loss or ribbon like stools. Denies any dyspepsia, dysphagia or odynophagia. [facility] Medical History (Updated 10/03/24 @ 20:17 by Roseann Trujillo [facility]) GERD (gastroesophageal reflux disease) Acid indigestion Back pain Palpitations Leukocytosis Depression Anxiety Asthma Migraine Type 2 diabetes mellitus with polyneuropathy Type 2 diabetes mellitus with hyperglycemia, with long-term current use of insulin Essential hypertension Vitamin D insufficiency Surgical History History of esophagogastroduodenoscopy (EGD) H/O colonoscopy Hx of section Family History Father Hypertension Diabetes Heart disease Mother Diabetes Heart disease Hypertension Social History Household Members: Family and Children Alcohol intake: current Alcohol intake frequency: does not drink Patient Tobacco Use Status: Never used Tobacco Second Hand Smoke Exposure: No Review of Systems Const Denies weight gain and Denies weight loss ENT Reports no additional complaints, Denies dysphagia and Denies odynophagia Card Reports no additional complaints Resp Reports no additional complaints GI Reports abdominal pain (Epigastric), Denies belching, Denies melena, Reports bloating, Denies change in bowel habits, Reports constipation, Denies dysphagia, Denies excessive flatus, Denies dyspepsia, Reports heartburn, Denies diarrhea, Denies loose stools, Denies nausea, Denies odynophagia and Denies vomiting Reports no additional complaints Musc Reports no additional complaints Neuro Reports no additional complaints Psych Reports no additional complaints Endo Reports no additional complaints Physical Exam Vital Signs: Last Vital Signs Pulse 74 10/03/24 14:13 BP 134/76 10/03/24 14:13 Pulse Ox 100 10/03/24 14:13 Oxygen Delivery Method Room Air 10/03/24 14:13 BMI result Body Mass Index 34.2 Const General: healthy appearing and no acute distress Nutritional Appearance: obese Orientation/consciousness: patient oriented x3 Resp Effort & Inspection: normal respiratory effort, able to speak in complete sentences, no tracheal deviation and symmetric chest movement Auscultation: clear to auscultation bilaterally Cardio Rate: regular rate GI Inspection: Yes normal to inspection, No distended and Yes obesity Palpation (GI): Soft to palpation, not firm, nontender and No hepatosplenomegaly present Auscultation: normal bowel sounds General: Yes no CVA tenderness Back/Spine/Pelvis Back: no CVA tenderness Skin General skin exam: elasticity normal, turgor normal and dry skin Neuro General: patient oriented x3 Psych Appearance: grossly normal Mental Status: mental status grossly normal Assessment & Plan Assessment & Plan (1) Symptomatic cholelithiasis: Code(s): K80.20 - Calculus of gallbladder without cholecystitis without obstruction Category: Surgical (2) GERD (gastroesophageal reflux disease): Code(s): K21.9 - Gastro-esophageal reflux disease without esophagitis Category: Medical Qualifiers: Esophagitis presence: without esophagitis Qualified Code(s): K21.9 - Gastro-esophageal reflux disease without esophagitis (3) Postprandial epigastric pain: Code(s): R10.13 - Epigastric pain (4) Postprandial abdominal bloating: Code(s): R14.0 - Abdominal distension (gaseous) (5) Constipation: Code(s): K59.00 - Constipation, unspecified Qualifiers: Constipation type: slow transit constipation Qualified Code(s): K59.01 - Slow transit constipation (6) Dyspepsia: Code(s): R10.13 - Epigastric pain (7) IBS (irritable bowel syndrome): Code(s): K58.9 - Irritable bowel syndrome, unspecified Qualifiers: Irritable bowel syndrome type: with constipation Qualified Code(s): K58.1 - Irritable bowel syndrome with constipation (8) Helicobacter pylori (H. pylori): Code(s): A04.8 - Other specified bacterial intestinal infections Plan History of anemia, patient will go and have her blood work rechecked today. Patient will have colonoscopy rescheduled as she had a suboptimal prep. Will return in 2 months so we can discuss how to prep and making sure that she is currently moving her bowels. Dulcolax has not been working for patient she continues to have left lower quadrant pain and constipation. Will start patient on Linzess 145 mcg if this will not work we will increase her dose. Patient was also encouraged to increase fluid intake and activity to promote better bowel motility. No H pylori found on upper endoscopy. Continue lansoprazole. Avoid dietary triggers and late night snacking. Staying upright for minimum 3 hours after meals discussed with patient. Patient was encouraged to keep her appointment with general surgeon for next week so she can discuss a plan about going for cholecystectomy. Patient is agreeable to current plan of care and verbalizes understanding of instructions, she was given the opportunity to ask questions and all questions answered. Thank you for allowing me to participate in her care Orders: Orders Complete Blood Count no Diff Today K21.9 - Gastro-esophageal reflux disease without esophagitis Medications: New linaclotide (Linzess) 145 mcg PO DAILY 30 caps 2RF Coding Level of Care Code Est Pt Level 4 (81657) Diagnoses Symptomatic cholelithiasis K80.20 Gastroesophageal reflux disease without esophagitis K21.9 Esophagitis presence: without esophagitis Postprandial epigastric pain R10.13 Postprandial abdominal bloating R14.0 Slow transit constipation K59.01 Constipation type: slow transit constipation Dyspepsia R10.13 Irritable bowel syndrome with constipation K58.1 Irritable bowel syndrome type: with constipation Helicobacter pylori (H. pylori) A04.8 Time Spent (min) 40 Comment 25 minutes spent with patient and additional 15 minutes spent reviewing her records
--- OUTSIDE RECORDS SUMMARY | 2024-10-03 17:36 | XMS_ITS ---
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 Refill FreeStyle Sal 2 Sensor Miscellaneous, -, 1, Take as DIRECTED TRANSDERMAL CHANGE EVERY 14 DAYS 30 DAYS, 30 days, Refills=5 Refill Ferrous Gluconate Tablet, 324 (38 Fe) MG, 90 Tablet, TAKE 1 TABLET BY MOUTH EVERY DAY WITH WATER OR JUICE BETWEEN MEALS, 90, Refills=3 * true * Date:? Generated for Alvaro dooley/Bassam/Patysmitting on:?10/03/2024 05:36 PM EST
--- OUTSIDE RECORDS SUMMARY | 2024-10-03 17:36 | XMS_ITS | Patient Health Record ---
Author Organization [facility] Address [address] [place] [address] Care Team Providers Care Edi Coordinator Name Role Phone ALBERT MOJICA Primary Care Provider [phone] Tariq Llamas Unavailable [phone] Eladio Garrett Unavailable [phone] Allergies Allergen (clinical drug ingredient) Drug/Non Drug Allergy documented on EMR Reaction Allergy Type Onset Date Status dulaglutide Trulicity nausea/headache Drug Allergy Active Results Component Value Reference Range Notes Hgb A1c with eAG Estimation- [id number] Reviewed date:02/01/2024 07:39:32 AM Interpretation: Performing Lab:[facility], [address] [facility], Phone - [phone], Director - MDJodry Notes/Report: Hemoglobin A1c 7.1 4.8-5.6 % . Prediabetes: 5.7 - 6.4 Diabetes: >6.4 Glycemic control for adults with diabetes: <7.0 Estim. Avg Glu (eAG) 157 CBC With Differential/Platel et-[id number] Reviewed date:07/18/2024 10:47:00 PM Interpretation: Performing Lab:[facility], [address] [employer] [place], [place], Phone - [phone], Director - MDJodry Notes/Report: WBC 12.9 3.4-10.8 x10E3/uL RBC 4.35 [...] % Immature Grans (Abs) 0.1 0.0-0.1 x10E3/uL Ferritin-[id number] Reviewed date:07/18/2024 01:54:35 PM Interpretation: Performing Lab:[facility] [place], [address] [place] [address], Phone - [phone], Director - Marikay Notes/Report: Ferritin 8 15-150 ng/mL Iron and TIBC-[id number] Reviewed date:07/18/2024 01:55:05 PM Interpretation: Performing Lab:[facility] [place], [address] [place] [address], Phone - [phone], Director - Marikay Notes/Report: Iron Bind.Cap.(TIBC) 385 250-450 ug/dL UIBC 329 131-425 ug/dL Iron 56 27-159 ug/dL Iron Saturation 15 15-55 % CBC With Differential/Platel et-[id number] Reviewed date:02/17/2024 03:26:04 PM Interpretation: Performing Lab:[facility], [address] [place] [address], Phone - [phone], Director - MDJodry Notes/Report: WBC 11.9 3.4-10.8 [...] % Immature Grans (Abs) 0.0 0.0-0.1 x10E3/uL Ferritin-[id number] Reviewed date:02/16/2024 07:49:03 AM Interpretation: Performing Lab:[facility], [address] [place] [address], Phone - [phone], Director - ARBuffyy Notes/Report: Ferritin 10 15-150 ng/mL Iron-[id number] Reviewed date:02/16/2024 07:49:05 AM Interpretation: Performing Lab:[facility], [address] [place] [address], Phone - [phone], Director - [facility] Notes/Report: Iron 15 27-159 ug/dL Comp. Metabolic Panel (14)-3 [id number] Reviewed date:08/18/2024 11:12:10 AM Interpretation: Performing Lab:[facility], [address] [place] [address], Phone - [phone], Director - [facility]/Report: Glucose 144 70-99 mg/dL BUN 9 [...] (SGPT) 11 0-32 IU/L CBC With Differential/Platel et-[id number] Reviewed date:08/18/2024 11:13:49 AM Interpretation: Performing Lab:[facility] [place], [address] [facility], Phone - [phone], Director - MDJoy Notes/Report: WBC 12.4 3.4-10.8 x10E3/uL Effective August 28, 2024 profile [id number] WBC will be made non-orderable as a [...] Immature Grans (Abs) 0.0 0.0-0.1 x10E3/uL Hemoglobin P8r-[id number] Reviewed date:08/18/2024 11:01:17 AM Interpretation: Performing Lab:[facility] [place], [address] [facility], [place], Phone - [phone], Director - Lissette Notes/Report: Hemoglobin A1c 7.0 4.8-5.6 % . Prediabetes: 5.7 - 6.4 Diabetes: >6.4 Glycemic control for adults with diabetes: <7.0 Reason For Referral Reason MARIANNA/MDD Diagnosis 1 Generalized anxiety disorder (F41.1) Diagnosis 2 Major depressive dis order, recurrent, moderate (F33.1) Referral Organization [facility] Referring Provider First Name ALBERT Referring Provider Last Name GAILNA Referring Provider Speciality Internal M edicine Referred Provider Specialty Psychiatry General Notes Referral printed out and mailed home to patient with a list of Psychiatry for patient to see which one accepts her insurance. [email or web address] 01/07/2024 04:19:53 PM > Referral Priority Routine Reason Evaluation and manag ement Diagnosis 1 Other cholelithiasis without obstruction (K80.80) Referral Organization [facility] Referring Provider First Name Eladio Referring Provider Last Name Tami Referred Provider Specialty Gastrointest inal surgeon General Notes Referral sent to [facility] GI - Office will call pt for scheduling.Chey Latraya 07/13/2024 07:43:35 AM > Referral Priority Stat Reason Evaluation and manag ement Diagnosis 1 Iron deficiency anem ia, unspecified (D50.9) Referral Organization [facility] Referring Provider First Name Eladio Referring Provider Last Name Tami Referred Provider Specialty Hematology General Notes [facility] - Office will call patient for scheduling.Chey Latraya 07/14/2024 08:47:08 AM > Referral Priority Urgent Medications Medication SIG (Take, Route, Frequency, Duration) Notes Start Date End Date Status HumaLOG KwikPen 100 UNIT/ML as directed Subcutaneous before meals Active FreeStyle Sal 2 [place] - as directed Active Aspirin Low Dose [...] Twice a day for 30 days Active Lisinopril 10 MG TAKE 1 TABLET BY GLORIA EVERY DAY FOR 90 DAYS for 90 Active Laxative 5 MG 1 tablet as needed Orally Once a day Active metFORMIN HCl 1000 MG TAKE 1 TABLET BY M OUTH TWICE A DAY WITH A MEAL FOR 90 DAYS for 90 Active Amitriptyline [...] - as directed for 30 days Active Chloride 3 1000 MG 3 capsules Orally On [...] Status Risk Notes Problem Iron deficiency anemia (06311932) Iron deficiency anemia, unspecified (D50.9) Active confirmed Problem Diabetic neuropathy (469133949) Diabetes mellitus due to underlying condition with diabetic neuropathy, unspecified (E08.40) Active confirmed Problem Type II diabetes mellitus without complication (066468834) Type 2 diabetes mellitus without complications (E11.9) Active confirmed Problem 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) Active confirmed Problem Moderate recurrent major depression (47214672) Major depressive disorder, recurrent, moderate (F33.1) Active confirmed Problem Generalized anxiety disorder (99587143) Generalized anxiety disorder (F41.1) Active confirmed Problem Post-traumatic stress disorder (27162878) Post-traumatic stress disorder, unspecified (F43.10) Active confirmed Problem Transient ischemic attack (079644179) Transient cerebral ischemic attack, unspecified (G45.9) Active confirmed Problem Insomnia (284603512) Insomnia, unspecified (G47.00) Active confirmed Problem Vertiginous syndrome (70101727) Unspecified disorder of vestibular function, unspecified ear (H81.90) Active confirmed Problem Essential hypertension (59421201) Essential (primary) hypertension (I10) Active confirmed Problem Gastro-esophageal reflux disease without esophagitis (844247446) Gastro-esophageal reflux disease without esophagitis (K21.9) Active confirmed Problem Cholelithiasis without obstruction (24605032) Other cholelithiasis without obstruction (K80.80) Active confirmed Problem Osteoarthritis (853992725) Unspecified osteoarthritis, unspecified site (M19.90) Active confirmed Problem Backache (637910458) Dorsalgia, unspecified (M54.9) Active confirmed Problem Excessive and frequent menstruation (777929815) Excessive and frequent menstruation with regular cycle (N92.0) Active confirmed Problem Abnormal uterine bleeding (92589765854287) Abnormal uterine and vaginal bleeding, unspecified (N93.9) Active confirmed Problem Abnormal gait (74664403) Unspecified abnormalities of gait and mobility (R26.9) Active confirmed Problem Long-term current use of insulin (900946867) correction (current) use of insulin (Z79.4) Active confirmed Problem Essential hypertension (82216177) HTN (hypertension), benign (I10) Active confirmed Problem Anemia (893484410) Anemia, unspecified type (D64.9) Active confirmed Problem Menstrual periods irregular (74760320) Menstrual periods irregular (N92.6) Active confirmed Vital Signs Heart Rate 74 /min 09/12/2024 Temperature 98.1 degrees Fahrenheit 09/12/2024 Blood pressure diastolic 70 mm Hg 09/12/2024 Oximetry 99 % 09/12/2024 Height 64 in 09/12/2024 Blood pressure systolic 118 mm Hg 09/12/2024 Weight 193.4 lbs 09/12/2024 BMI 33.19 kg/m2 09/12/2024 Encounters Encounter Location Date Provider Diagnosis [address] [place] [address] 05/05/[address] [place] [address] 08/16/[address] [address] 11/04/2023 ALBERT MARION Urinary tract infection, site not specified N39.0 and Diabetes mellitus due to underlying condition with diabetic neuropathy, unspecified E08.[address] [address] 12/03/2023 ALBERT MOJICA Diabetes mellitus du e to underlying condition with diabetic neuropathy, unspecified E08.40 ; Generalized anxiety disorder F41.1 ; Insomnia, unspecified G47.00 and Major depressive disorder, recurrent, moderate F33.[address] [address] 02/03/2024 [facility] Helicobacter pylori [H. pylori] as the cause of diseases classified elsewhere B96.81 ; Leiomyoma of uterus, unspecified D25.9 ; Abnormal uterine and vaginal bleeding, unspecified N93.9 ; Generalized anxiety disorder F41.1 and Headache, unspecified R51.[address] [address] 03/08/2024 Ghadeer Mazloum Diabetes mellitus du e to underlying condition with diabetic neuropathy, unspecified E08.40 ; Essential (primary) hypertension I10 ; Anemia, unspecified D64.9 ; Menstrual periods irregular N92.6 and Gastro-esophageal reflux disease without esophagitis K21.[address] [address] 07/12/2024 Ghadeer Mazloum Other cholelithiasis without obstruction K80.80 ; Anemia, unspecified type D64.9 and Diabetes mellitus due to underlying condition with diabetic neuropathy, unspecified E08.40 [facility] [address] [facility] [address] [place] [address] 08/15/2024 Ghadeer Mazloum Pre-operative cleara nce Z01.818 ; Anemia, unspecified type D64.9 ; Menstrual periods irregular N92.6 and Other cholelithiasis without obstruction K80.80 [facility] [address] [facility] [address] [place] [address] 09/12/2024 Aroosa Alam Anemia, unspecified type D64.9 ; Annual physical exam Z00.00 ; Menstrual periods irregular N92.6 and Other cholelithiasis without obstruction K80.80 [facility] [address] [facility] [address] [place] [address] 11/22/[address] [place] [address] 02/03/2024 [facility] [address] [place] [address] 03/03/[address] [place] [address] 03/17/2024 [facility] [address] [facility] [address] [place] [address] 05/05/2024 [facility] [address] [facility] [address] [place] [address] 07/12/2024 [facility] [address] [facility] [address] [place] [address] 07/17/2024 [facility] [address] [facility] [address] [place] [address] 07/18/2024 Ghadeer Mazloum Other cholelithiasis without obstruction K80.[address] [place] [address] 08/04/2024 ALBERT MOJICA [address] [place] [address] 08/08/2024 PRICE GUL Other cholelithiasis without obstruction K80.[address] [place] [address] 08/18/[address] [place] [address] 08/18/2024 Eladio Garrett [address] [place] [address] 09/12/2024 PRICE GUL Other cholelithiasis without obstruction K80.[address] [place] [address] 09/14/2024 PRICE SANAML Anemia, unspecified type D64.[address] [place] [address] 09/18/2024 PRICE Neil [address] [place] [address] 10/15/[address] [place] [address] 01/28/2024 PRICE SANAML Excessive and freque nt menstruation with regular cycle N92.[address] [place] [address] 08/25/2024 Eladio Garrett Assessments Encounter Date Diagnosis (ICD Code) Assessment Notes Treatment Notes Treatment Clinical Notes Section Notes 11/04/2023 Urinary tract infection, site not specified (ICD-10 - N39.0) Mrs. Marlow is a 48-year-old female Slovenian speaking patient with type 2 diabetes mellitus [...] on right medications. She has seen an dry wall finisher for the past year. Foot care discussed. check A1c. Blood work reviewed with patient and questions answered. Screening blood work before next appointment. General health concerns discussed with patient. Scribe services used to formulate this note under HIPAA compliance and under [place] law mandated for scribe services. Patient aware of service. Verbal consent and written consent taken from the patient. Patient understands and verbalizes understanding of the scribes services and all questions answered regarding scribes services. Patient agrees to use of scribes services. 12/03/2023 Diabetes mellitus due to underlying condition with diabetic neuropathy, unspecified (ICD-10 - E08.40) Mrs. Marlow is a 48-year-old female [place]ian speaking patient with type 2 diabetes mellitus and multiple psych issues here complaining of severe stomach pain. Plan is as follows: Type II diabetes mellitus with neuropathy. She is on right medications. She has seen an dry wall finisher for the past year. Foot care discussed. Check A1c. MARIANNA/MDD/Insomnia. She was seen at [facility], all her exams are negative and [...] concerns discussed with patient discharge or from [facility] reviewed Scribe services used to formulate this note under HIPAA compliance and under [place] law mandated for scribe services. Patient aware [...] B96.81) Mrs. Marlow is a 48-year-old female [place]ian speaking patient with type 2 diabetes mellitus and multiple psych issues here for follow up. She was recently diagnosed with H. pylori. She was not feeling well and had menorrhagia and she went to [facility]. She had CT abdomen and pelvis which showed fibroid and thickening of the uterus.Plan is as follows: H. pylori infection. She is currently on antibiotics for 2 weeks and then she will have a follow-up with GI for urea breath test Menorrhagia. She saw her narrow fabric calenderer and had a biopsy done and will [...] this note under HIPAA compliance and under [place] law mandated for scribe services. Patient aware of service. Verbal consent and written consent taken from the patient. Patient understands and verbalizes understanding of the scribes services and all questions answered regarding scribes services. Patient agrees to use of scribes services. 02/03/2024 Leiomyoma of uterus, unspecified (ICD-10 - D25.9) Mrs. Marlow is a 48-year-old female Slovenian speaking patient with type 2 diabetes mellitus and multiple psych issues here for follow up. She was recently diagnosed with H. pylori. She was not feeling well and had menorrhagia and she went to [facility]. She had CT abdomen and pelvis which showed fibroid and thickening of the uterus.Plan is as follows: H. pylori infection. She is currently on antibiotics for 2 weeks and then she will have a follow-up with GI for urea breath test Menorrhagia. She saw her narrow fabric calenderer and had a biopsy done and will [...] this note under HIPAA compliance and under [place] law mandated for scribe services. Patient aware of service. Verbal consent and written consent taken from the patient. Patient understands and verbalizes understanding of the scribes services and all questions answered regarding scribes services. Patient agrees to use of scribes services. 12/03/2023 Generalized anxiety disorder (ICD-10 - F41.1) Mrs. Marlow is a 48-year-old female [place]ian speaking patient with type 2 diabetes mellitus and multiple psych issues here complaining of severe stomach pain. Plan is as follows: Type II diabetes mellitus with neuropathy. She is on right medications. She has seen an dry wall finisher for the past year. Foot care discussed. Check A1c. MARIANNA/MDD/Insomnia. She was seen at [facility], all her exams are negative and [...] concerns discussed with patient discharge or from [facility] reviewed Scribe services used to formulate this note under HIPAA compliance and under [place] law mandated for scribe services. Patient aware of service. Verbal consent and written consent taken from the patient. Patient understands and verbalizes understanding of the scribes services and all questions answered regarding scribes services. Patient agrees to use of scribes services. 03/08/2024 Diabetes mellitus due to underlying condition with diabetic neuropathy, unspecified (ICD-10 - E08.40) Mrs. Marlow is a 48-year-old female Slovenian-speaking patient with type 2 diabetes mellitus and [...] antibiotic course. Recently seen by GI at [facility] with LISA Whitfield on February 22. She [...] I10) Mrs. Marlow is a 48-year-old female Slovenian-speaking patient with type 2 diabetes mellitus and [...] antibiotic course. Recently seen by GI at [facility] with LISA Whitfield on February 22. She [...] K80.80) Mrs. Marlow is a 48-year-old female Slovenian-speaking patient with type 2 diabetes mellitus and multiple psych issues here for abdominal pain. Two days ago, she went to [facility] ER for recurrent abdominal pain. Ultrasound of [...] transfusion. Otherwise, she will be referred to qc manager. I have rendered the services for this patient under direct supervision of Dr. Mojica, who did not see the patient but was available upon request 07/12/2024 Anemia, unspecified type (ICD-10 - D64.9) Mrs. Marlow is a 48-year-old female Slovenian-speaking patient with type 2 diabetes mellitus and multiple psych issues here for abdominal pain. Two days ago, she went to [facility] for recurrent abdominal pain. Ultrasound of [...] transfusion. Otherwise, she will be referred to qc manager. I have rendered the services for this patient under direct supervision of Dr. Mojica, who did not see the patient but was available upon request 07/18/2024 Other cholelithiasis without obstruction (ICD-10 - K80.80) 08/08/2024 Other cholelithiasis without obstruction (ICD-10 - K80.80) 08/15/2024 Pre-operative clearance (ICD-10 - Z01.818) Mrs. Marlow is a 49-year-old female Slovenian-speaking patient with type 2 diabetes mellitus and [...] patient but was available upon request 09/12/2024 Annual physical exam (ICD-10 - Z00.00) Mrs. Marlow is a 49-year-old female Slovenian-speaking patient with type 2 diabetes mellitus anxiety [...] D64.9) Mrs. Marlow is a 49-year-old female Slovenian-speaking patient with type 2 diabetes mellitus anxiety [...] she does not want tdap either 09/12/2024 Other cholelithiasis without obstruction (ICD-10 - K80.80) 09/14/2024 Anemia, unspecified type (ICD-10 - D64.9) 09/12/2024 Menstrual periods irregular (ICD-10 - N92.6) Mrs. Marlow is a 49-year-old female Slovenian-speaking patient with type 2 diabetes mellitus anxiety [...] E08.40) Mrs. Marlow is a 48-year-old female Slovenian-speaking patient with type 2 diabetes mellitus and multiple psych issues here for abdominal pain. Two days ago, she went to [facility] ER for recurrent abdominal pain. Ultrasound of [...] transfusion. Otherwise, she will be referred to qc manager. I have rendered the services for this patient under direct supervision of Dr. Mojica, who did not see the patient but was available upon request 08/15/2024 Anemia, unspecified type (ICD-10 - D64.9) Mrs. Marlow is a 49-year-old female Slovenian-speaking patient with type 2 diabetes mellitus and [...] the patient but was available upon request 03/08/2024 Anemia, unspecified (ICD-10 - D64.9) Mrs. Marlow is a 48-year-old female Slovenian-speaking patient with type 2 diabetes mellitus and [...] antibiotic course. Recently seen by GI at [facility] with LISA Whitfield on February 22. She [...] the above mentioned assessment and plan 12/03/2023 Insomnia, unspecified (ICD-10 - G47.00) Mrs. Marlow is a 48-year-old female Slovenian speaking patient with type 2 diabetes mellitus and multiple psych issues here complaining of severe stomach pain. Plan is as follows: Type II diabetes mellitus with neuropathy. She is on right medications. She has seen an dry wall finisher for the past year. Foot care discussed. Check A1c. MARIANNA/MDD/Insomnia. She was seen at [facility], all her exams are negative and [...] concerns discussed with patient discharge or from [facility] reviewed Scribe services used to formulate this note under HIPAA compliance and under [place] law mandated for scribe services. Patient aware of service. Verbal consent and written consent taken from the patient. Patient understands and verbalizes understanding of the scribes services and all questions answered regarding scribes services. Patient agrees to use of scribes services. 02/03/2024 Abnormal uterine and vaginal bleeding, unspecified (ICD-10 - N93.9) Mrs. Marlow is a 48-year-old female [place]ian speaking patient with type 2 diabetes mellitus and multiple psych issues here for follow up. She was recently diagnosed with H. pylori. She was not feeling well and had menorrhagia and she went to [facility]. She had CT abdomen and pelvis which showed fibroid and thickening of the uterus.Plan is as follows: H. pylori infection. She is currently on antibiotics for 2 weeks and then she will have a follow-up with GI for urea breath test Menorrhagia. She saw her narrow fabric calenderer and had a biopsy done and will [...] this note under HIPAA compliance and under [place] law mandated for scribe services. Patient aware of service. Verbal consent and written consent taken from the patient. Patient understands and verbalizes understanding of the scribes services and all questions answered regarding scribes services. Patient agrees to use of scribes services. 11/04/2023 Diabetes mellitus due to underlying condition with diabetic neuropathy, unspecified (ICD-10 - E08.40) Mrs. Marlow is a 48-year-old female [place]ian speaking patient with type 2 diabetes mellitus [...] on right medications. She has seen an dry wall finisher for the past year. Foot care discussed. check A1c. Blood work reviewed with patient and questions answered. Screening blood work before next appointment. General health concerns discussed with patient. Scribe services used to formulate this note under HIPAA compliance and under [place] law mandated for scribe services. Patient aware of service. Verbal consent and written consent taken from the patient. Patient understands and verbalizes understanding of the scribes services and all questions answered regarding scribes services. Patient agrees to use of scribes services. 12/03/2023 Major depressive disorder, recurrent, moderate (ICD-10 - F33.1) Mrs. Marlow is a 48-year-old female [place]ian speaking patient with type 2 diabetes mellitus and multiple psych issues here complaining of severe stomach pain. Plan is as follows: Type II diabetes mellitus with neuropathy. She is on right medications. She has seen an dry wall finisher for the past year. Foot care discussed. Check A1c. MARIANNA/MDD/Insomnia. She was seen at [facility], all her exams are negative and [...] concerns discussed with patient discharge or from [facility] reviewed Scribe services used to formulate this note under HIPAA compliance and under [place] law mandated for scribe services. Patient aware of service. Verbal consent and written consent taken from the patient. Patient understands and verbalizes understanding of the scribes services and all questions answered regarding scribes services. Patient agrees to use of scribes services. 02/03/2024 Generalized anxiety disorder (ICD-10 - F41.1) Mrs. Marlow is a 48-year-old female Slovenian speaking patient with type 2 diabetes mellitus and multiple psych issues here for follow up. She was recently diagnosed with H. pylori. She was not feeling well and had menorrhagia and she went to [facility]. She had CT abdomen and pelvis which showed fibroid and thickening of the uterus.Plan is as follows: H. pylori infection. She is currently on antibiotics for 2 weeks and then she will have a follow-up with GI for urea breath test Menorrhagia. She saw her narrow fabric calenderer and had a biopsy done and will [...] this note under HIPAA compliance and under [place] law mandated for scribe services. Patient aware of service. Verbal consent and written consent taken from the patient. Patient understands and verbalizes understanding of the scribes services and all questions answered regarding scribes services. Patient agrees to use of scribes services. 03/08/2024 Menstrual periods irregular (ICD-10 - N92.6) Mrs. Marlow is a 48-year-old female Slovenian-speaking patient with type 2 diabetes mellitus and [...] antibiotic course. Recently seen by GI at [facility] with LISA Whitfield on February 22. She [...] N92.6) Mrs. Marlow is a 49-year-old female Slovenian-speaking patient with type 2 diabetes mellitus and [...] patient but was available upon request 09/12/2024 Other cholelithiasis without obstruction (ICD-10 - K80.80) Mrs. Marlow is a 49-year-old female Slovenian-speaking patient with type 2 diabetes mellitus anxiety [...] she does not want tdap either 08/15/2024 Other cholelithiasis without obstruction (ICD-10 - K80.80) Mrs. Marlow is a 49-year-old female Slovenian-speaking patient with type 2 diabetes mellitus and [...] the patient but was available upon request 03/08/2024 Gastro-esophageal reflux disease without esophagitis (ICD-10 - K21.9) Mrs. Marlow is a 48-year-old female Slovenian-speaking patient with type 2 diabetes mellitus and [...] antibiotic course. Recently seen by GI at [facility] with LISA Whitfield on February 22. She [...] the above mentioned assessment and plan 02/03/2024 Headache, unspecified (ICD-10 - R51.9) Mrs. Marlow is a 48-year-old female Slovenian speaking patient with type 2 diabetes mellitus and multiple psych issues here for follow up. She was recently diagnosed with H. pylori. She was not feeling well and had menorrhagia and she went to [facility]. She had CT abdomen and pelvis which showed fibroid and thickening of the uterus.Plan is as follows: H. pylori infection. She is currently on antibiotics for 2 weeks and then she will have a follow-up with GI for urea breath test Menorrhagia. She saw her narrow fabric calenderer and had a biopsy done and will [...] this note under HIPAA compliance and under [place] law mandated for scribe services. Patient aware [...] 09/30/2022 Mammo: Diagnostic Mammogram Bilateral CBC/Differential (No Platelet)-[id number] CBC/Differential (No Platelet)-[id number] A1c w/GlycoMark(R) Reflex-[id number] Next Appt Details Provider Name:Eladio multani, 03/14/2025 11:00:00 AM, [address] [place] [address], [phone], Insurance Providers Payer Name Payer Address Payer Phone Subscriber Number Group Number Insured Name Patient Relationship to Insured Coverage Start Date Coverage End Date [facility]) 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
--- OUTSIDE RECORDS SUMMARY | 2024-10-03 17:36 | XMS_ITS ---
Author Organization [facility] Address [address] [place] [address] Care Team Providers Care Die Lay Out Worker Name Role Phone ALBERT MOJICA Primary Care Provider [phone] REASON FOR VISIT BD needle refill Medications Medication SIG (Take, Route, Frequency, Duration) Notes Start Date End Date Status BD Pen Needle Che U/F 32G X 4 MM Check blood sugar three times a day DX: E11.9 for 30 days Active Encounters Encounter Location Date Provider Diagnosis [facility] [address] [address] 09/14/2024 PRICESONAM MARIONNeil Anemia, unspecified type D64.9 [...] Details Provider Name:Eladio multani, 03/14/2025 11:00:00 AM, [address] [place] [address], [place], [address], Progress Notes * Ele DEL VALLEDOB:1975 ( 49 yo F)Acc No.[id number]:09/14/2024 Patient:?Ele DEL VALLE :1975???Age:49 Y???Sex:Female Address:[facility], [place] [address] * Refills? Refill BD Pen Needle Che [...] * true * Date:? Generated for Alvaro dooley/Bassam/eTtheosmmontserrat on:?10/03/2024 05:35 PM EST
--- OUTSIDE RECORDS SUMMARY | 2024-10-03 17:36 | XMS_ITS ---
Author Organization [facility] Address [address] [place] [phone] Care Team Providers Care Director Public Policy Name Role Phone ALBERT MOJICA Primary Care Provider REASON FOR VISIT Colonoscopy Question Encounters Encounter Location Date Provider Diagnosis [facility] [address] [facility] [address] [place] [address] 09/18/2024 ALBERT MOJICA Plan Of Treatment Next Appt Details Provider Name:Eladio multani, 03/14/2025 11:00:00 AM, [address] [facility] [address], [place], [address], Progress Notes * Ele DEL VALLEDOB:1975 ( 49 yo F)Acc No.[id number]:09/18/2024 Patient:?ELIGIO Ele :1975???Age:49 Y???Sex:Female Address:[place] [address] * true * Date:? Generated for Alvaro dooley/Bassam/eTransmitting on:?10/03/2024 05:35 PM EST
== END 2024-10-03 14:49 | disposition home or self-care (01) ==
PROVIDERS: PCP Hospitalist; Visit Provider Nurse Practitioner Family
DX: K80.20 Calculus of gallbladder without cholecystitis without obstruction (principal); K21.9 Gastro-esophageal reflux disease without esophagitis; R10.13 Epigastric pain; R14.0 Abdominal distension (gaseous); K59.01 Slow transit constipation; K58.1 Irritable bowel syndrome with constipation; A04.8 Other specified bacterial intestinal infections
CPT/HCPCS: 99214

== ENCOUNTER 2024-10-03 14:11 | Outpatient (REF) | payer OTHER, SELFPAY ==
[2024-10-03 15:26] LABS: Hematocrit 38.3 % (37.0-47.0); Hemoglobin 11.6 g/dl (12.0-16.0); Mean Corpuscular HGB Conc 30.3 g/dl (31.0-35.0); Mean Corpuscular Hemoglobin 22.4 pg (27.0-33.0); Mean Corpuscular Volume 74.1 fL (80.0-98.0); Mean Platelet Volume 10.3 fL (9.4-12.3); Platelet Count 426 X10*3/uL (160-400); Red Blood Count 5.17 X10*6/uL (4.20-5.50); Red Cell Distribution Width 20.5 % (11.0-16.0); White Blood Count 13.9 X10*3/uL (4.8-10.8)
== END 2024-10-03 14:12 | disposition home or self-care (01) ==
LOC: HO.LAB 14:11
PROVIDERS: PCP Hospitalist; Visit Provider Nurse Practitioner Family
DX: K21.9 Gastro-esophageal reflux disease without esophagitis (principal); K80.20 Calculus of gallbladder without cholecystitis without obstruction; R10.13 Epigastric pain; R14.0 Abdominal distension (gaseous); K59.00 Constipation, unspecified; K58.1 Irritable bowel syndrome with constipation; A04.8 Other specified bacterial intestinal infections; Z86.2 Personal history of diseases of the blood and blood-forming organs and certain disorders involving the immune mechanism; Z98.890 Other specified postprocedural states
CPT/HCPCS: 36415; 85027; 99212

== ENCOUNTER 2024-11-22 21:37 | Emergency (ER) | payer OTHER, SELFPAY ==
--- NOTE | 2024-11-22 | ECG_ITS ---
Test Reason : CHEST PAIN Blood Pressure : */* mmHG Vent. Rate : 76 BPM Atrial Rate : 76 BPM P-R Int : 170 ms QRS Dur : 74 ms QT Int : 366 ms P-R-T Axes : 52 6 41 degrees QTcB Int : 411 ms Normal sinus rhythm Possible Anterior infarct (cited on or before 20-Mar-2012) Abnormal ECG When compared with ECG of 10-Jul-2024 01:26, No significant change was found Referred By: Generic ED Physician Electronically Signed By: Dax Suarez
[2024-11-22 21:47] VITALS: BP 147/81; PULSE 76; RESP 18; TEMP 36.9; O2SAT 98; BMI 32.6
--- OUTSIDE RECORDS SUMMARY | 2024-11-22 22:18 | XMS_ITS | Encounter Summary ---
Author Organization [facility] Address [id number] [place] [address] Care Team Providers Care Windows Software Engineer Name Role Phone Yarely Rondon MD Primary Care Provider [phone] Reason for Visit * Episode Based Medications (Routine) - Authorized Specialty Diagnoses / Procedures Referred By Estelita callaway Referred To Contact Diagnoses Iron deficiency anemia due to chronic blood loss Chi Barrow MD [address] [place] [address] Phone: tel: fax: [facility] [address] [place] [address] Phone: tel: fax: Referral ID Status Reason Start Date Expiration Date V isits Requested Visits Authorized [id number] Authorized 10/16/2024 10/16/2025 6 6 Encounter Details Date Type Department Care Team (Latest Contact Info) Description 10/23/2024 2:00 PM EST - 10/23/2024 11:59 PM EST Hospital Encounter [facility] [address] [place] [address] Chi Barrow MD [address] [place] [address] Iron deficiency anemia due to chronic blood loss (Primary Dx) Discharge Disposition: Home or Self Care Social History Tobacco Use Types Packs/Day Years Used Date Smoking Tobacco: Never Smokeless Tobacco: Never Alcohol Use Standard Drinks/Week Comments Never 0 (1 standard drink = 0.6 oz pur e alcohol) Comments Unknown Sex and Gender Information Value Date Recorded Sex Assigned at Female 08/16/2024 2:52 PM EST Legal Sex Female 9:20 AM EST Gender Identity Female 08/16/2024 2:52 PM EST Sexual Orientation Straight 10/23/2024 2: 07 PM EST documented as of this encounter Last Filed Vital Signs Vital Sign Reading Time Taken Comments Blood Pressure 143/75 10/23/2024 4:03 PM EST Pulse 81 10/23/2024 4:03 PM EST Temperature 36.7 ??C (98.1 ??F) 10/23/2024 4:03 PM ES T Respiratory Rate 18 10/23/2024 4:03 PM EST Oxygen Saturation 100% 10/23/2024 4:03 PM EST Inhaled Oxygen Concentration - - Weight - - Height - - Body Mass Index - - documented in this encounter Medications at Time of Discharge aspirin 81 mg EC tablet Take 81 mg by mouth. 12/04/2021 baclofen (LIORESAL) 10 mg tablet take 1 tablet by mouth twice a day as needed for 30 days 09/07/2024 gabapentin (NEURONTIN) 300 mg capsule Take 300 mg by mouth. 12/01/2011 hydrOXYzine HCL (ATARAX) 25 mg tablet Take 25 mg by mouth. 01/03/2018 insulin glargine (LANTUS) 100 unit/mL injection Inject into the skin. 01/03/2018 ketorolac (TORADOL) 60 mg/2 mL syringe 2 mL by Other route Once for 1 dose. 10/29/2023 Laxative, bisacodyl, 5 mg EC tablet Take 2 tablets (10 mg total) by mouth. at bedtime 09/05/2024 lisinopriL (PRINIVIL,ZESTRIL ) 10 mg tablet Take 10 mg by mouth. 12/04/2021 metFORMIN (GLUCOPHAGE) 500 mg tablet Take 500 mg by mouth. 01/03/2018 QUEtiapine (SEROquel) 25 mg tablet Take 25 mg by mouth. 01/03/2018 zolpidem (AMBIEN) 10 mg tablet Take 10 mg by mouth. 01/03/2018 documented as of this encounter Discharge Disposition Disposition Code Departure Means Destination Home or Self Care documented in this encounter Progress Notes * Poppy Neves RN - 10/23/2024 2:00 PM ESTEncounter addended by: Poppy Neves RN on: 10/23/2024 5:00 PM Actions taken: Flowsheet accepted * Poppy Neves RN - 10/23/2024 2:00 PM EST Patient arrives ambulatory accompanied by daughter for first Feraheme infusion. Patient Maltese speaking and video investigation clerk used throughout encounter. Patient educated on Feraheme and given opportunity to ask questions. PIV inserted without incident. Patient resting comfortably in chair with callbell in reach. 1533-Patient completed Feraheme infusion without incident. Patient to remain for 30 minute observation period. 1605-Patient completed observation period without incident. Vitals retaken and stable. Patient reports feeling well. PIV removed-intact. Patient's next appointment scheduled and provided to her. Patient stable upon discharge. documented in this encounter Plan of Treatment Not on file documented as of this encounter Visit Diagnoses Diagnosis Iron deficiency anemia due to chronic blood loss- Primary Iron deficiency anemia secondary to blood loss (chronic) documented in this encounter Administered Medications Inactive Administered Medications - up to 3 most recent administrations Medication Order MAR Action Action Date Dose Rate Site ferumoxytoL (FERAHEME) 510 mg in sodium chloride 117 mL IVPB 510 mg, intravenous, at 468 mL/hr, Administer over 15 Minutes, Once, On 10/23/24 at 1500, For 1 doseIndications:Iron deficiency anemia due to chronic blood loss New Bag 10/23/2024 3:03 PM EST 510 mg documented in this encounter Orders Medications Ordered That Chance ht Not Have Been Administered Count Last Ordered Date First Ordered Date ferumoxytoL (FERAHEME) 510 m g in sodium chloride 117 mL IVPB 1 10/23/2024 documented in this encounter Care Teams Windows Software Engineer Relationship Specialty Start Date End Date Yarely Rondon MD [address] [place] [address] PCP - General Internal Medicine 03/05/22 documented as of this encounter
--- OUTSIDE RECORDS SUMMARY | 2024-11-22 22:18 | XMS_ITS | Clinical Summary ---
Author Organization [facility] Address [address] [place] [address] Care Team Providers Care Box Covering Machine Operator Name Role Phone Unavailable Primary Care Provider Unavailabl e Source Comments PLEASE NOTE, if this patient is a minor, it may be UNLAWFUL to discuss sensitive information that is contained in these records (such as FAMILY PLANNING, MENTAL HEALTH or SUBSTANCE ABUSE) with the minor patient's parent or other person without the patient's specific authorization.[facility] Allergies No known active allergies Medications metFORMIN (GLUCOPHAGE) 1,000 mg tabletIndications :Type 2 diabetes mellitus without complication, with long-term current use of insulin ([facility]) Take 1,000 mg by mouth 2 (two) times daily Per Endo 1 7 Active ADITYA PEN NEEDLE 32 gauge x 32 ndleIndications:T ype 2 diabetes mellitus without complication, with long-term current use of insulin ([facility]) Per Endo 0 7 Active ONGLYZA 5 mg tabletIndications :Type 2 diabetes mellitus without complication, with long-term current use of insulin ([facility]) Take by mouth once daily Per Endo 0 7 Active insulin glargine (LANTUS) 100 unit/mL injectionIndicati ons:Type 2 diabetes mellitus without complication, with long-term current use of insulin ([facility]) Per Endo 10 mL 7 Active canagliflozin (INVOKANA) 100 mg tabIndications:Ty pe 2 diabetes mellitus without complication, with long-term current use of insulin ([facility]) Take by mouth 7 Active betamethasone dipropionate (DIPROLENE) 0.05 % creamIndications: Dermatitis Apply topically 2 (two) times daily Apply as a thin film. 45 g 2 7 Active ferrous sulfate 325 mg (65 mg iron) tabletIndications :Iron deficiency anemia due to chronic blood loss Take 1 Tab by mouth 2 (two) times daily with a meal 60 Tab 5 7 Active FLUoxetine (PROZAC) 20 mg capsuleIndication s:Anxiety and depression Take 1 Cap by mouth once daily 30 Cap 5 8 Active capsaicin 0.025 % creamIndications: Musculoskeletal pain Apply topically 3 (three) times daily 60 g 3 8 Active polyethylene glycol 3350 (GLYCOLAX, MIRALAX) 17 gram packetIndications :Constipation, unspecified constipation type Take 17 g by mouth once daily 28 Each 1 8 Active metoprolol succinate (TOPROL-XL) 50 mg 24 hr tablet PER PSYCH 0 9 Active VITAMIN D3 2,000 unit capsule 0 9 Active amitriptyline (ELAVIL) 50 mg tablet PER PSYCH 0 9 Active FREESTYLE LITE STRIPS strips 1 9 Active MAPAP, ACETAMINOPHEN, 325 mg tablet take 2 tablets by mouth four times a day if needed 0 9 Active LANTUS SOLOSTAR U-100 INSULIN 100 unit/mL (3 mL) injection pen 0 9 Active FREESTYLE LANCETS 28 gauge 1 9 Active albuterol sulfate 90 mcg/actuation inhalerIndication s:Mild intermittent asthma without complication Inhale 2 Puffs into the lungs every 6 (six) hours as needed for shortness of breath 1 Inhaler 3 9 Active gabapentin (NEURONTIN) 300 mg capsuleIndication s:Neuropathy Take 1 Cap by mouth 3 (three) times daily 90 Cap 5 9 Active buPROPion HCl (WELLBUTRIN SR) 100 mg 12 hr tablet Take 100 mg by mouth every morning 0 9 Active nabumetone (RELAFEN) 500 mg tabletIndications :Musculoskeletal pain take 1 tablet by mouth twice a day 60 Tab 5 9 Active aspirin [address] tabletIndications :Essential hypertension take 1 tablet by mouth once daily 30 Tab 5 9 Active meclizine (ANTIVERT) 25 mg tabletIndications :Dizziness TAKE 1 TABLET BY MOUTH TWICE A DAY IF NEEDED FOR DIZZINESS 60 Tab 3 0 Active lisinopriL 10 mg tabletIndications :Essential hypertension TAKE 1 TABLET BY MOUTH ONCE DAILY 30 Tab 5 0 Active Active Problems Problem Noted Date Diagnosed Date Chest wall pain 11/05/2018 Overview (07/02/2019): 09/29/18 - Seen at [facility] c/o left sided chest pain x 2 days. CXR, EKG and troponin negative. Pain improved with Tylenol. Dx: chest chest wall pain. Tx: Tylenol. 06/21/19 - Myocardial perfusion study: likely normal myocardial perfusion. Gated LVEF is greater than 70%, Transcient ischemic dilatation not present. Stress EKG negative for ischemia. Iron deficiency anemia due to chronic blood loss 01/25/2017 Overview (01/25/2017): Due to menorrhagia Mild intermittent asthma 01/25/2017 Type 2 diabetes mellitus without complication Overview (06/26/2019): F/U C Endo 03/25/18 - Endo F/U. HgA1c 8.8%. C/w Onglyza 5 mg, Lantus, Invokana 100 mg, Metformin 1000 mg BID. 05/08/18 - A1c 8.5% 08/05/18 - A1c 8.1% lantus 57 u 11/08/18 - A1c = 8.0% 03/17/19 - A1c = 7.7% 06/16/19 - 7.2% Musculoskeletal pain 11/13/2016 Neuropathy 11/13/2016 Essential hypertension 11/13/2016 Anxiety and depression 11/13/2016 Resolved Problems Problem Noted Date Diagnosed Date Resolved Date Diabetic eye exam ([facility]) 11/17/2016 08/03/2018 Overview (11/17/2016): Per pt, follow up with eye doc regularly Psychophysiological insomnia 11/13/2016 08/03/2018 Social History Tobacco Use Types Packs/Day Years Used Date Smoking Tobacco: Never Smokeless Tobacco: Never Alcohol Use Standard Drinks/Week Comments No 0 (1 standard drink = 0.6 oz pur e alcohol) Social Connections Answer Date Recorded Social Connections and Isolation 0 05/16/2019 Financial Resource Strain Answer Date R ecorded Financial Resource Strain 0 2018 Stress Answer Date Recorded Stress 0 05/16/2019 Physical Activity Answer Date Recorded Physical Activity 0 05/16/2019 Food Insecurity Answer Date Recorded Food 0 05/16/2019 Transportation Needs Answer Date Record ed Transportation 0 05/16/2019 Housing Stability Answer Date Recorded Housing 0 05/16/2019 Safety and Environment Answer Date Jae rded Safety 0 05/16/2019 Utilities Answer Date Recorded Utilities 0 05/16/2019 Employment Answer Date Recorded Employment 0 05/16/2019 Comments No Sex and Gender Information Value Date Recorded Sex Assigned at Female 09/02/2017 6:16 AM PST Legal Sex Female 11:36 AM PDT Gender Identity Female 09/02/2017 6:16 AM PST Sexual Orientation Straight 09/02/2017 6: 16 AM PST Last Filed Vital Signs Vital Sign Reading Time Taken Comments Blood Pressure 116/70 02/01/2019 11:30 AM EDT Pulse 76 02/01/2019 11:30 AM EDT Temperature 36.8 ??C (98.2 ??F) 02/01/2019 11:30 AM E DT Respiratory Rate 16 02/01/2019 11:30 AM EDT Oxygen Saturation 100% 04/08/2018 10:17 AM EDT Inhaled Oxygen Concentration - - Weight 97.1 kg (214 lb) 02/01/2019 11:30 AM EDT Height 168 cm (5' 6.14 ) 02/01/2019 11:30 AM EDT Body Mass Index 34.39 02/01/2019 11:30 AM EDT Plan of Treatment Not on file Insurance [facility] [employer] [facility]
--- OUTSIDE RECORDS SUMMARY | 2024-11-22 22:18 | XMS_ITS | Clinical Summary ---
Author Organization [facility] Address [address] [place] [address] Phone Care Team Providers Care Soubrette Name Role Phone Yarely Rondon MD Primary Care Provider [phone] Allergies No known active allergies Medications aspirin (ST MACY) 81 MG EC tablet Take 81 mg by mouth 12/04/2021 Active Calcium Citrate-Vitamin D 250-5 MG-MCG tablet Take 2 tablets by mouth 03/06/2023 Active diazePAM (Valium) 5 MG tablet Take 5 mg by mouth 12/10/2021 Active gabapentin (NEURONTIN) 300 MG capsule Take 300 mg by mouth 12/01/2011 Active insulin glargine (Lantus SoloStar) 100 UNIT/ML injection Inject under the skin 01/03/2018 Active lisinopril 10 MG tablet Take 10 mg by mouth 12/04/2021 Active meclizine (ANTIVERT) 12.5 MG tablet Take 12.5 mg by mouth 03/06/2023 Active metFORMIN (GLUCOPHAGE) 1000 MG tablet Take 1,000 mg by mouth in the morning and 1,000 mg in the evening. 01/03/2018 Active QUEtiapine (SEROquel) 25 MG tablet Take 25 mg by mouth 01/03/2018 Active rizatriptan (MAXALT) 10 MG tablet Take 10 mg by mouth 03/11/2023 Active zolpidem (Ambien) 10 MG tablet Take 10 mg by mouth 01/03/2018 Active Dapagliflozin Propanediol 5 MG tablet Take 5 mg by mouth 1 (one) time each day in the morning 30 tablet 11 10/08/2023 Active Active Problems Problem Noted Date Diagnosed Date Other iron deficiency anemia 10/01/2023 Irregular period 10/01/2023 Long-term (current) use of insulin 10/01/2023 Other abnormalities of gait and mobility 024 Pain in right upper arm 10/01/2023 Dorsalgia 10/01/2023 Osteoarthritis 10/01/2023 Other specified diabetes mellitus with diabetic nephropathy 09/06/2023 Type 2 diabetes mellitus with diabetic polyneuro hoa 09/06/2023 Major depressive disorder 09/06/2023 Generalized anxiety disorder 09/06/2023 Post-traumatic stress disorder 09/06/2023 Transient cerebral ischemic attack 09/06/2023 Insomnia 09/06/2023 Other disorders of vestibular function, unspecif ied ear 09/06/2023 Gastro-esophageal reflux disease without esophag itis 09/06/2023 Hypertension 09/03/2023 09/03/2023 Obese class I 09/03/2023 09/03/2023 Family History Medical History Relation Comments Diabetes Father Heart attack Father Hypertension Father Diabetes Mother Heart attack Mother Hypertension Mother Relation Status Comments Father Mother Social History Tobacco Use Types Packs/Day Years Used Date Smoking Tobacco: Never Tobacco Cessation:Counseling Given: Not Answered Alcohol Use Standard Drinks/Week Comments Never 0 (1 standard drink = 0.6 oz pur e alcohol) Comments Unknown Sex and Gender Information Value Date Recorded Sex Assigned at Not on file Legal Sex Female 9:54 AM EDT Gender Identity Not on file Sexual Orientation Not on file Last Filed Vital Signs Vital Sign Reading Time Taken Comments Blood Pressure 120/72 02/08/2024 1:43 PM EDT Pulse 83 02/08/2024 1:43 PM EDT Temperature - - Respiratory Rate - - Oxygen Saturation - - Inhaled Oxygen Concentration - - Weight 88.5 kg (195 lb) 02/08/2024 1:43 PM EDT Height - - Body Mass Index - - Plan of Treatment Upcoming Encounters Date Type Department Care Team (Late st Contact Info) Description 02/06/2025 1:00 PM EDT Office Visit [facility] [address] [address] Catalino Younger MD [address] [address] Health Maintenance Due Date Last Done Comments Breast Cancer Screening 1975 Pneumococcal Vaccine: Pediat rics (0 to 5 Years) and At-Risk Patients (6 to 64 Years) (1 of 2 - PCV) 1980 Hepatitis B Vaccine (1 of 3 - 19+ 3-dose series) 03/29 Colorectal Cancer Screening: Annual FOBT 2023 Colorectal Cancer Screening: Colonoscopy 2023 Colorectal Cancer Screening: Sigmoidoscopy 2023 Diabetes: Hemoglobin A1C 09/06/2023 Diabetes: Ophthalmology Exam 09/06/2023 Diabetes: Pedal Pulse Checked 09/06/2023 Diabetes: Sensory Foot Exam 09/06/2023 Diabetes: Visual Foot Exam 09/06/2023 Influenza Vaccine (#1) [address] [place] [address] [place] [address] Care Teams Soubrette Relationship Specialty Start Date End Date Yarely Rondon MD [address] [place] [address] PCP - General Internal Medicine 04/07/23
--- OUTSIDE RECORDS SUMMARY | 2024-11-22 22:18 | XMS_ITS ---
Author Organization [facility] Address [address] [place] [address] [address] [place] [address] Care Team Providers Care Shop Supervisor Name Role Phone ALBERT MOJICA Primary Care Provider [phone] REASON FOR VISIT psychi Encounters Encounter Location Date Provider Diagnosis [facility] [address] [facility] [address] [place] [address] 11/03/2024 ALBERT MOJICA Plan Of Treatment Next Appt Details Provider Name:Eladio Almazanjeremiah multani, 01/11/2025 11:00:00 AM, [address] [place] [address], [phone], Provider Name:Eladio Almazanjeremiah multani, 03/14/2025 11:00:00 AM, [address] [place] [address], [phone], Progress Notes * Ele DEL VALLEDOB:1975 ( 49 yo F)Acc No.[id number]:11/03/2024 Patient:?Ele DEL VALLE :1975???Age:49 Y???Sex:Female Address:[place] [address] * true * Date:? Generated for Ronniei soumya/Bassam/eTransmitting on:?11/22/2024 10:18 PM EST
--- OUTSIDE RECORDS SUMMARY | 2024-11-22 22:18 | XMS_ITS | Encounter Summary ---
Author Organization [facility] Address [address] [facility] [address] [place] [address] Phone Care Team Providers Care Control Clerk Head Name Role Phone Yarely Rondon MD Primary Care Provider [phone] Reason for Visit * Reason Comments Med Change Request Encounter Details Date Type Department Care Team (Late Contact Info) Description 10/08/2023 Refill [facility] [address] [place] [address] Catalino Younger MD [address] [address] Social History Tobacco Use Types Packs/Day Years Used Date Smoking Tobacco: Never Alcohol Use Standard Drinks/Week Comments Never 0 (1 standard drink = 0.6 oz pur e alcohol) Comments Unknown Sex and Gender Information Value Date Recorded Sex Assigned at Not on file Legal Sex Female 9:54 AM EDT Gender Identity Not on file Sexual Orientation Not on file documented as of this encounter Plan of Treatment Upcoming Encounters Date Type Department Care Team (Late st Contact Info) Description 02/06/2025 1:00 PM EDT Office Visit [facility] [address] [address] Catalino Younger MD [address] [address] documented as of this encounter Visit Diagnoses Not on filedocumented in this encounter Care Teams Control Clerk Head Relationship Specialty Start Date End Date Yarely Rondon MD [address] [place] [address] PCP - General Internal Medicine 04/07/23 documented as of this encounter
--- OUTSIDE RECORDS SUMMARY | 2024-11-22 22:18 | XMS_ITS | Encounter Summary ---
Author Organization [facility] Address [address] [place] [id number] Care Team Providers Care Pm Head Cook Name Role Phone Yarely Rondon MD Primary Care Provider [phone] Reason for Visit * Episode Based Medications (Routine) - Authorized Specialty Diagnoses / Procedures Referred By Estelita callaway Referred To Contact Diagnoses Iron deficiency anemia due to chronic blood loss Chi Barrow MD [address] [place] [address] Phone: tel: fax: [facility] [address] [place] [phone] Phone: tel: fax: Referral ID Status Reason Start Date Expiration Date V isits Requested Visits Authorized [id number] Authorized 10/16/2024 10/16/2025 6 6 Encounter Details Date Type Department Care Team (Latest Contact Info) Description 10/31/2024 2:00 PM EST - 10/31/2024 11:59 PM EST Hospital Encounter [facility] [address] [place] [phone] Chi Barrow MD [address] [place] [address] Iron deficiency anemia due to [...] Sign Reading Time Taken Comments Blood Pressure 135/81 10/31/2024 3:20 PM EST Pulse 85 10/31/2024 3:20 PM EST Temperature 36.7 ??C (98 ??F) 10/31/2024 3:04 PM EST Respiratory Rate 18 10/31/2024 3:20 PM EST Oxygen Saturation 100% 10/31/2024 3:04 PM EST Inhaled Oxygen Concentration - - Weight - - Height - - Body Mass Index - - documented in this encounter Medications at Time of Discharge glipiZIDE (GLUCOTROL XL) 5 mg 24 hr tablet 1 TABLET BY MOUTH DAILY,INSTR:WIT H BREAKFAST 10/26/2024 aspirin 81 mg EC tablet Take 81 [...] total) by mouth. at bedtime 09/05/2024 lisinopriL (PRINIVIL,ZESTRI L) 10 mg tablet Take 10 mg by [...] Progress Notes * Poppy Neves RN - 10/31/2024 2:00 PM ESTEncounter addended by: Poppy Neves RN on: 10/31/2024 3:55 PM Actions taken: Flowsheet accepted * Poppy Neves RN - 10/31/2024 2:00 PM EST Patient arrives ambulatory accompanied by son for second feraheme infusion. Patient Estonian speaking, video gold leaf printer used throughout encounter. Stable patient assessment, patient reports mild headache after her first infusion. PIV inserted without incident. Patient resting comfortably in chair with call corado in reach. 1503-Patient's feraheme 29.4mls infused when patient reported 8/10 bilateral leg pain. Patient's vitals taken and HR and BP elevated, temperature and oxygen saturation normal. Feraheme stopped and normal saline initiated to flush line. Phone call placed to Dr. Barrow who advised to give patient 25mg Benadryl and 650mg Tylenol. Estonian gold leaf printer used to explain plan of administering benadryl and tylenol and restarting iron infusion after those medications have absorbed. Patient stating after a few minutes of the iron beingoff her pain has resolved. Patient expressing reservations about restarting iron infusion and wouldlike a few minutes to think about it and consult her other son who is a physician. Patient requesting BP be retaken- BP and HR decreased to normal range. 1530-Patient decided she does not wish to continue with iron infusion today. PIV removed-intact. Patient advised to follow-up with her PCP regarding repeat lab testing. Patient verbalized understanding. Patient stable upon discharge. documented in this [...] mL/hr, Administer over 15 Minutes, Once, On Wed10/31/24 at 1445, For 1 doseIndications:Iron deficiency anemia due to chronic blood loss New Bag 10/31/2024 2:49 PM EST 510 mg documented in this encounter Historical Medications * This list may reflect changes made after this encounter. glipiZIDE (GLUCOTROL XL) 5 mg 24 hr tablet 1 TABLET BY MOUTH DAILY,INSTR:WIT H BREAKFAST 10/26/2024 added in this encounter Orders Medications Ordered That Chance ht Not Have Been Administered Count Last Ordered Date First Ordered Date acetaminophen (TYLENOL) tablet 650 mg 1 12/2024 diphenhydrAMINE (BENADRYL) injection 25 mg 1 10/31/2024 sodium chloride 0.9 % flush 10 mL 1 025 sodium chloride 0.9 % flush 5 mL 1 10/31/19 25 sodium chloride 0.9 % infusion 1 10/31/2024 Nursing Count Last Ordered Date First Orde red Date ONC NURSING COMMUNICATION 1 10/31/2024 ONC NURSING COMMUNICATION 10 2 10/31/2024 ONC NURSING COMMUNICATION 5 1 10/31/2024 ONC NURSING COMMUNICATION 7 1 10/31/2024 TREATMENT CONDITIONS 1 10/31/2024 Appointment Requests Count Last Ordered Date Fi rst Ordered Date ONCBCN INFUSION APPOINTMENT REQUEST 03 1 documented in this encounter Care Teams Pm Head Cook Relationship Specialty Start Date End Date Yarely Rondon MD [address] [place] [address] PCP - General Internal Medicine 03/05/22 documented as of this encounter
--- OUTSIDE RECORDS SUMMARY | 2024-11-22 22:19 | XMS_ITS ---
Author Organization [facility] Address [address] [place] [phone] Care Team Providers Care Administrative Fellow Name Role Phone ALBERT MOJICA Primary Care Provider REASON FOR VISIT psychiatry Encounters Encounter Location Date Provider Diagnosis [facility] [address] [phone] 11/03/2024 ALBERT MOJICA Plan Of Treatment Next Appt Details Provider Name:Eladio Almazanjeremiah multani, 01/11/2025 11:00:00 AM, [address] [place] [address], [phone], Provider Name:Eladio Almazanjeremiah multani, 03/14/2025 11:00:00 AM, [address] [place] [address], [phone], Progress Notes * Ele DEL VALLEDOB:1975 ( 49 yo F)Acc No.[id number]:11/03/2024 Patient:?Ele DEL VALLE :1975???Age:49 Y???Sex:Female Address:[place] [address] * true * Date:? Generated for Printi ng/Fatroyg/eTransmitting on:?11/22/2024 10:18 PM EST
[2024-11-22 22:28] LABS: MANUAL DIFF FLAG NO
[2024-11-22 22:30] LABS: Basophils Absolute Auto 0.1 X10*3/uL (0.0-0.2); Basophils Percent Auto 0.4 % (0-2); Eosinophils Absolute Auto 0.1 X10*3/uL (0.0-0.4); Hematocrit 37.9 % (37.0-47.0); Hemoglobin 12.4 g/dl (12.0-16.0); Imm Gran Abs Auto 0.04 X10*3/uL (0.00-0.03); Imm Gran Pct Auto 0.3 % (0.0-0.4); Lymphocytes Absolute Auto 4.1 X10*3/uL (1.2-4.9); Lymphocytes Percent Auto 29.3 % (20-40); Mean Corpuscular HGB Conc 32.7 g/dl (31.0-35.0); Mean Corpuscular Hemoglobin 25.6 pg (27.0-33.0); Mean Corpuscular Volume 78.3 fL (80.0-98.0); Mean Platelet Volume 10.4 fL (9.4-12.3); Monocytes Absolute Auto 0.8 X10*3/uL (0.1-1.2); Monocytes Percent Auto 5.8 % (2-11); Neutrophils Absolute Auto 8.9 x10*3/uL (2.0-8.3); Neutrophils Percent Auto 63.2 % (45-73); Platelet Count 344 X10*3/uL (160-400); Red Blood Count 4.84 X10*6/uL (4.20-5.50); Red Cell Distribution Width 20.8 % (11.0-16.0); White Blood Count 14.1 X10*3/uL (4.8-10.8)
[2024-11-22 22:46] LABS: Alanine Aminotransferase 12 U/L (0-31); Albumin Level 3.8 g/dL (3.5-5.0); Alkaline Phosphatase 67 U/L (39-117); Anion Gap 10 (12-20); Aspartate Amino Transferase 14 U/L (5-31); Bilirubin Direct < 0.2 mg/dL (0.0-0.5); Bilirubin Total 0.2 mg/dL (0.0-1.0); Blood Urea Nitrogen 10 mg/dL (9-16); Calcium 9.2 mg/dL (8.4-10.2); Carbon Dioxide 25 mmol/L (22-29); Chloride 106 mmol/L (96-108); Creatinine Clr Calc Pharmacy 103.6; Estimated Glomerular Filt Rate > 60; Glucose Random 135 mg/dL (60-115); Lipase 38 U/L (8-78); Potassium 3.9 mmol/L (3.3-5.1); Sodium 137 mmol/L (135-145); Total Protein 7.6 g/dL (6.5-8.0)
[2024-11-22 22:55] LABS: Troponin-I High Sensitivity < 2.7 ng/L (<3.5-17.0)
== END 2024-11-23 03:03 | disposition left against medical advice (07) ==
PROVIDERS: Emergency Provider Emergency Medicine; PCP Hospitalist
DX: R10.9 Unspecified abdominal pain (principal); R07.9 Chest pain, unspecified; Z53.21 Procedure and treatment not carried out due to patient leaving prior to being seen by health care provider
CPT/HCPCS: 36415; 80048; 80076; 83690; 84484; 85025; 93005; 99281; 99283

== ENCOUNTER → 2024-11-22 21:41 | Outpatient (BNV) | payer OTHER, SELFPAY | PROVIDERS: Emergency Provider Emergency Medicine; PCP Hospitalist; Visit Provider Internal Medicine Cardiovascular Disease | DX: R07.9 Chest pain, unspecified (principal); R94.31 Abnormal electrocardiogram [ECG] [EKG] | CPT/HCPCS: 93010 ==

== ENCOUNTER 2024-12-26 18:14 | Emergency (ER) | payer OTHER, SELFPAY ==
--- NOTE | ~2024-12-26 | CT_ITS ---
CLINICAL HISTORY: Transient vision loss?tia CT head without contrast Comparison: None Findings: No acute intracranial hemorrhage. No midline shift or hydrocephalus. No arterial territorial infarction by CT. Fluid and mucosal thickening of the paranasal sinuses are multifocal. Partially empty sella. No acute skull fracture. Imaged mastoid air cells are well aerated. Imaged orbits are unremarkable for technique. IMPRESSION: 1. No acute intracranial abnormality by CT. 2. Fluid and mucosal thickening of the paranasal sinuses as can be associated with sinusitis. This document has been electronically signed by: Westley Whitney MD on 12/27/2024 02:21:19
[2024-12-26 18:25] VITALS: BP 175/78; PULSE 77; RESP 16; TEMP 36.8; O2SAT 98; BMI 33.7
[2024-12-26 18:49] LABS: MANUAL DIFF FLAG NO
[2024-12-26 18:57] LABS: Basophils Percent Auto 0.1 % (0-2); Eosinophils Absolute Auto 0.1 X10*3/uL (0.0-0.4); Eosinophils Percent Auto 0.8 % (0-4); Hematocrit 40.7 % (37.0-47.0); Hemoglobin 13.4 g/dl (12.0-16.0); Imm Gran Abs Auto 0.02 X10*3/uL (0.00-0.03); Imm Gran Pct Auto 0.2 % (0.0-0.4); Lymphocytes Absolute Auto 2.8 X10*3/uL (1.2-4.9); Lymphocytes Percent Auto 30.7 % (20-40); Mean Corpuscular HGB Conc 32.9 g/dl (31.0-35.0); Mean Corpuscular Hemoglobin 26.9 pg (27.0-33.0); Mean Corpuscular Volume 81.6 fL (80.0-98.0); Mean Platelet Volume 10.8 fL (9.4-12.3); Monocytes Absolute Auto 0.5 X10*3/uL (0.1-1.2); Monocytes Percent Auto 5.3 % (2-11); Neutrophils Absolute Auto 5.6 x10*3/uL (2.0-8.3); Neutrophils Percent Auto 62.9 % (45-73); Platelet Count 269 X10*3/uL (160-400); Red Blood Count 4.99 X10*6/uL (4.20-5.50); Red Cell Distribution Width 18.4 % (11.0-16.0)
[2024-12-26 19:08] LABS: INTERNATIONAL NORM RATIO 1.1 (0.9-1.1); Prothrombin Time 12.3 SEC (10.9-12.4)
[2024-12-26 19:12] LABS: Alanine Aminotransferase 18 U/L (0-31); Albumin Level 4.1 g/dL (3.5-5.0); Alkaline Phosphatase 65 U/L (39-117); Anion Gap 12 (12-20); Aspartate Amino Transferase 21 U/L (5-31); Bilirubin Direct < 0.2 mg/dL (0.0-0.5); Bilirubin Total 0.2 mg/dL (0.0-1.0); Blood Urea Nitrogen 9 mg/dL (9-16); Calcium 9.2 mg/dL (8.4-10.2); Carbon Dioxide 24 mmol/L (22-29); Chloride 106 mmol/L (96-108); Creatinine Clr Calc Pharmacy 96.6; Estimated Glomerular Filt Rate > 60; Glucose Random 180 mg/dL (60-115); Potassium 4.4 mmol/L (3.3-5.1); Sodium 138 mmol/L (135-145); Total Protein 7.9 g/dL (6.5-8.0)
[2024-12-26 19:49] LABS: Influenza A PCR NEGATIVE (Negative); Influenza B PCR NEGATIVE (Negative); Resp Syncy Virus RNA Qual PCR NEGATIVE (Negative); SARS COV2 PCR INHOUSE NEGATIVE (Negative)
--- NOTE | 2024-12-27 00:16 | ED_ITS ---
HPI - General Adult General Chief complaint: General Medical Stated complaint: 6 days of tooth pain Time Seen by Provider: 12/27/24 00:16 Source: patient Mode of arrival: ambulatory Limitations: no limitations History of Present Illness ED Provider: HPI narrative: Patient's history of remote migraine comes here for toothache in right upper premolar for last 1 week in the dentist who prescribed antibiotics earlier today at 17:00 patient noticed tingling sensation of the right face with transient decreased vision on the right eye lasted for 15 minutes patient does have history of migraines headache did not have slight headache on that time no vision loss at this time no other deficits Related Data Home Medications ?Medication ?Instructions ?Recorded ?Confirmed albuterol sulfate 90 mcg/actuation 2 puff inhalation Q4-5H PRN 07/04/20 09/15/24 aerosol inhaler Shortness Of Breath amitriptyline 25 mg tablet 25 mg PO DAILY 07/04/20 09/15/24 fluticasone propionate 50 1 spray intranasal DAILY 07/04/20 09/15/24 mcg/actuation nasal spray,suspension (Flonase Allergy Relief) hydroxyzine HCl 25 mg tablet 25 mg PO BEDTIME 07/04/20 09/15/24 lisinopril 10 mg tablet 10 mg PO DAILY 07/04/20 09/15/24 quetiapine 25 mg tablet (Seroquel) 25 mg PO BEDTIME 07/04/20 09/15/24 zolpidem 10 mg tablet (Ambien) 10 mg PO BEDTIME PRN Insomnia 07/04/20 09/15/24 blood sugar diagnostic #10 ea 07/15/20 09/04/24 loratadine 10 mg tablet (Allergy 10 mg PO DAILY PRN Allergy Symptoms 12/16/20 09/15/24 Relief (loratadine)) meloxicam 7.5 mg tablet 7.5 mg PO DAILY 05/02/21 09/15/24 aspirin 81 mg tablet,delayed 81 mg PO DAILY 11/22/23 09/15/24 release calcium carbonate 500 mg PO BID 11/22/23 09/15/24 latanoprost 0.005 % eye drops 1 drp ophthalmic (eye) BEDTIME 11/22/23 09/15/24 metoprolol tartrate 25 mg tablet 12.5 mg PO BID 11/22/23 09/15/24 baclofen 10 mg tablet 10 mg PO BID 09/04/24 09/15/24 flash glucose scanning reader #1 ea 09/04/24 09/04/24 (FreeStyle Sal 2 [place]) gabapentin 300 mg capsule 300 mg PO TID 09/04/24 09/15/24 levonorgestrel 20.4 mcg/24 hr (up intrauterine 09/04/24 09/04/24 to 8 yrs) 52 mg intrauterine device (Liletta) Previous Rx's ?Medication ?Instructions ?Recorded blood sugar diagnostic (FreeStyle 1 strip miscellaneous .qd 90 days 06/26/21 Lite Strips) #100 strips glucose 4 gram chewable tablet 12 g (3 x 4 gram) PO Q15M PRN 06/26/21 (Dex4 Glucose) hypoglycemia 90 days #60 tabs pen needle, diabetic 32 gauge x #150 ea 06/26/21 cholecalciferol (vitamin D3) 50 50 mcg PO DAILY #30 caps 10/09/21 mcg (2,000 unit) capsule pen needle, diabetic 32 gauge x #125 ea 01/01/22 (BD Ultra-Fine Che Pen Needle) insulin glargine 100 unit/mL (3 32 unit (0.32 mL) subcut QAM 90 02/12/22 mL) subcutaneous pen ( #28.8 mL Solostar U-100 Insulin) triamcinolone acetonide 0.5 % 1 appl topical BID apply to rash 03/20/22 topical cream on chest #15 grams flash glucose sensor (FreeStyle 1 ea topical Q2W 90 days #6 ea 04/28/22 Sal 14 Day Sensor kit) insulin lispro 100 unit/mL See Rx Instructions subcut TID #15 07/02/22 subcutaneous pen mL metformin 1,000 mg tablet 1,000 mg PO BID 30 days #60 tabs 08/25/22 tramadol 50 mg tablet 50 mg PO BID PRN pain #5 tabs 04/27/23 docusate sodium 100 mg capsule 200 mg (2 x 100 mg) PO BEDTIME 11/22/23 #180 caps alprazolam 0.5 mg tablet (Xanax) 0.5 mg PO BID PRN anxiety #20 tabs 11/30/23 simethicone 125 mg capsule (Gas 125 mg PO TID-QID PRN abdominal 12/22/23 Relief (simethicone)) distention #120 caps tranexamic acid 650 mg tablet 1,300 mg (2 x 650 mg) PO TID 5 01/31/24 days #30 tabs lorazepam 1 mg tablet (Ativan) 1 mg PO BID PRN anxiety #4 tabs 02/04/24 famotidine 40 mg tablet 40 mg PO BEDTIME #90 tabs 02/23/24 lansoprazole 30 mg capsule,delayed 30 mg PO DAILY #90 caps 02/23/24 release ferrous gluconate 324 mg (37.5 mg 324 mg PO BID #60 tabs 07/10/24 iron) tablet polyethylene glycol 3350 17 17 g PO DAILY #510 grams 07/10/24 gram/dose oral powder (Miralax) bisacodyl 5 mg tablet,delayed 10 mg (2 x 5 mg) PO BEDTIME #180 09/04/24 release (Dulcolax (bisacodyl)) tabs linaclotide 145 mcg capsule 145 mcg PO DAILY #30 caps 10/03/24 (Linzess) tramadol 50 mg tablet 50 mg PO Q6H PRN pain #20 tabs 12/27/24 Allergies Allergy/AdvReac Type Severity Reaction Status Date / Time No Known Allergies Allergy Verified 12/26/24 18:30 Review of Systems 2 Review of Systems: Yes all other systems are reviewed and are negative PMFSH Past Medical History Medical History GERD (gastroesophageal reflux disease) Acid indigestion Back pain Palpitations Leukocytosis Depression Anxiety Asthma Migraine Type 2 diabetes mellitus with polyneuropathy Type 2 diabetes mellitus with hyperglycemia, with long-term current use of insulin Essential hypertension Vitamin D insufficiency Surgical History History of esophagogastroduodenoscopy (EGD) H/O colonoscopy Hx of section Family History Family History Father Hypertension Diabetes Heart disease Mother Diabetes Heart disease Hypertension Social History Social History Household Members: Family and Children Alcohol intake: current Alcohol intake frequency: does not drink Patient Tobacco Use Status: Never used Tobacco Second Hand Smoke Exposure: No Advance Directives: No Advance Directives Information Provided: Yes Physical Exam ED Vital Signs: Vital Signs - 24 hr 12/26/24 18:25 12/27/24 01:22 12/27/24 02:02 Temperature 98.3 F 98.2 F 98.2 F Pulse Rate 77 61 61 Respiratory Rate 16 16 16 Blood Pressure 175/78 H 136/79 136/79 Pulse Oximetry 98 97 97 Oxygen Delivery Method Room Air Room Air Room Air BMI result Body Mass Index 33.7 Appearance: Alert. Oriented X3. No acute distress. Eyes: PERRLA, No Nystagmus ENT: Pharynx normal. Oral Mucosa moist Neck: Normal inspection. Neck supple. CVS: Normal heart rate and rhythm. Pulses normal. Respiratory: No respiratory distress. Equal air entry bilateral, no wheezing/rales/rhonchi Abdomen: Soft and nontender. Bowel sounds are present, no mass palpable, no CVA tenderness Skin: Skin warm and dry. Normal skin color. Normal skin turgor. Extremities: No lower extremity edema. No calf tenderness Neuro: Oriented X 3. No motor deficit. No sensory deficit.No cerebellar signs , cranial nerves II-XII intact NIH Stroke Scale Internal: Initial- Upon Arrival Level of Consciousness: Alert Level of Consciousness Questions: Answers both questions correctly Level of Consciousness Commands: Performs both tasks correctly Best Gaze: Normal Visual: No visual loss Facial Palsy: Normal Motor Arm (Right): No drift Motor Arm (Left): No drift Motor Leg (Right): No drift Motor Leg (Left): No drift Limb Ataxia: Absent Sensory: Normal Best Language: No aphasia Dysarthia: Normal Extinction and Inattention: No abnormality Score: 0 Medications Administered Discontinued Medications Generic Name Dose Route Start Last Admin Trade Name Freq PRN Reason Stop Dose Admin Oxycodone HCl 10 mg 12/27/24 01:53 12/27/24 02:00 Oxycodone Hcl Immed Release 5 Mg Tablet PO 12/27/24 01:54 10 mg ONCE ONE Administration Medical Decision Making Medical Decision Making [facility] Narrative: Patient with transient loss of vision on the ice eye with headache likely ocular migraine CT scan is negative workup also negative Differential Diagnosis Differential Diagnoses: The differential diagnosis associated with the presentation includes TIA/ocular migraine Lab Data [facility] Lab Attestation statement: I reviewed the patient's lab results. 12/26/24 18:43 12/26/24 18:43 Labs: Lab Results 12/26/24 Range/Units 18:43 WBC 9.0 (4.8-10.8) X10*3/uL RBC 4.99 (4.20-5.50) X10*6/uL Hgb 13.4 (12.0-16.0) g/dl Hct 40.7 (37.0-47.0) % MCV 81.6 (80.0-98.0) fL MCH 26.9 L (27.0-33.0) pg MCHC 32.9 (31.0-35.0) g/dl RDW 18.4 H (11.0-16.0) % Plt Count 269 (160-400) X10*3/uL MPV 10.8 (9.4-12.3) fL Immature Gran % (Auto) 0.2 (0.0-0.4) % Neut % (Auto) 62.9 (45-73) % Lymph % (Auto) 30.7 (20-40) % [place] % (Auto) 5.3 (2-11) % Eos % (Auto) 0.8 (0-4) % Baso % (Auto) 0.1 (0-2) % Lymph # (Auto) 2.8 (1.2-4.9) X10*3/uL [place] # (Auto) 0.5 (0.1-1.2) X10*3/uL Eos # (Auto) 0.1 (0.0-0.4) X10*3/uL Baso # (Auto) 0.0 (0.0-0.2) X10*3/uL Abs Immat Gran (auto) 0.02 (0.00-0.03) X10*3/uL Absolute Neuts (auto) 5.6 (2.0-8.3) x10*3/uL Absolute Nucleated RBC 0.000 (0.0-0.012) X10*3/uL Nucleated RBC % (auto) 0.0 (0.0-0.2) /100WBC PT 12.3 (10.9-12.4) SEC INR 1.1 (0.9-1.1) Sodium 138 (135-145) mmol/L Potassium 4.4 (3.3-5.1) mmol/L Chloride 106 (96-108) mmol/L Carbon Dioxide 24 (22-29) mmol/L Anion Gap 12 (12-20) BUN 9 (9-16) mg/dL Creatinine 0.71 (0.5-1.4) mg/dL Estim Creat Clear Calc 96.6 Estimated GFR > 60 Random Glucose 180 H (60-115) mg/dL Calcium 9.2 (8.4-10.2) mg/dL Total Bilirubin 0.2 (0.0-1.0) mg/dL Direct Bilirubin < 0.2 (0.0-0.5) mg/dL AST 21 (5-31) U/L ALT 18 (0-31) U/L Alkaline Phosphatase 65 (39-117) U/L Total Protein 7.9 (6.5-8.0) g/dL Albumin 4.1 (3.5-5.0) g/dL Influenza Type A (PCR) NEGATIVE (Negative) Influenza Type B (PCR) NEGATIVE (Negative) RSV RNA Qual (PCR) NEGATIVE (Negative) SARS-CoV-2 RNA (RT-PCR) NEGATIVE (Negative) Discharge Plan Discharge Clinical Impression: Migraine aura occurring with and without headache Patient Disposition: Home, Self-Care Instructions: Ocular Migraine (ED) Additional Instructions: Likely your symptoms were from the migraine aura phase No signs of stroke were seen Your CT scan is negative for stroke Follow up with your PCP if any recurrence Prescriptions: New tramadol 50 mg tablet 50 mg PO Q6H PRN (Reason: pain) Qty: 20 0RF No Action FreeStyle Lite Strips Strip 1 strip miscellaneous .qd 90 Days Qty: 100 10RF glucose [Dex4 Glucose] 4 gram tablet,chewable 12 g PO Q15M PRN (Reason: hypoglycemia) 90 Days Qty: 60 3RF Rx Instructions: until symptoms of low blood sugar are controlled (DME) pen needle, diabetic 32 gauge x 5/32 needle See Rx Instructions subcut .MEDSUPPLY Qty: 150 11RF Rx Instructions: Once a day cholecalciferol (vitamin D3) 50 mcg (2,000 unit) capsule 50 mcg PO DAILY Qty: 30 11RF Lantus Solostar U-100 Insulin 100 unit/mL (3 mL) insulin pen 32 unit subcut QAM 90 Days Qty: 28.8 1RF FreeStyle Sal 14 Day Sensor Kit 1 ea topical Q2W 90 Days Qty: 6 11RF insulin lispro 100 unit/mL insulin pen See Rx Instructions subcut TID Qty: 15 5RF Rx Instructions: 4 units before breakfast and dinner and 6 units before lunch subcut 3 times a day; 4 units before breakfast and dinner and 6 units before lunch subcut 3 times a day; subcutaneously 3 times a day; metformin 1,000 mg tablet 1,000 mg PO BID 30 Days Qty: 60 0RF Rx Instructions: FUTURE REFILLS FROM PCP. triamcinolone acetonide 0.5 % cream 1 appl topical BID Qty: 15 0RF tramadol 50 mg tablet 50 mg PO BID PRN (Reason: pain) Qty: 5 0RF alprazolam [Xanax] 0.5 mg tablet 0.5 mg PO BID PRN (Reason: anxiety) Qty: 20 0RF tranexamic acid 650 mg tablet 1,300 mg PO TID 5 Days Qty: 30 0RF lorazepam [Ativan] 1 mg tablet 1 mg PO BID PRN (Reason: anxiety) Qty: 4 0RF Rx Instructions: Please be aware that this medication can cause addiction/dependence polyethylene glycol 3350 [Miralax] 17 gram/dose powder 17 g PO DAILY Qty: 510 0RF ferrous gluconate 324 mg (37.5 mg iron) tablet 324 mg PO BID Qty: 60 0RF (DME) FreeStyle Precision [place] Strips Strip See Rx Instructions .ROUTE DAILY Qty: 10 Rx Instructions: As directed meloxicam 7.5 mg tablet 7.5 mg PO DAILY hydroxyzine HCl 25 mg tablet 25 mg PO BEDTIME zolpidem [Ambien] 10 mg tablet 10 mg PO BEDTIME PRN (Reason: Insomnia) quetiapine [Seroquel] 25 mg tablet 25 mg PO BEDTIME fluticasone propionate [Flonase Allergy Relief] 50 mcg/actuation spray,suspension 1 spray intranasal DAILY Rx Instructions: administer into each nostril amitriptyline 25 mg tablet 25 mg PO DAILY lisinopril 10 mg tablet 10 mg PO DAILY albuterol sulfate 90 mcg/actuation HFA aerosol inhaler 2 puff inhalation Q4-5H PRN (Reason: Shortness Of Breath) loratadine [Allergy Relief (loratadine)] 10 mg tablet 10 mg PO DAILY PRN (Reason: Allergy Symptoms) (DME) pen needle, diabetic [BD Ultra-Fine Che Pen Needle] 32 gauge x 5/32 needle See Rx Instructions .ROUTE .MEDSUPPLY Qty: 125 6RF Rx Instructions: As directed four times a day lansoprazole 30 mg capsule,delayed release(DR/EC) 30 mg PO DAILY Qty: 90 3RF famotidine 40 mg tablet 40 mg PO BEDTIME Qty: 90 3RF aspirin 81 mg tablet,delayed release (DR/EC) 81 mg PO DAILY latanoprost 0.005 % drops 1 drp ophthalmic (eye) BEDTIME docusate sodium 100 mg capsule 200 mg PO BEDTIME Qty: 180 3RF metoprolol tartrate 25 mg tablet 12.5 mg PO BID calcium carbonate 500 mg calcium (1,250 mg) tablet,chewable 500 mg PO BID simethicone [Gas Relief (simethicone)] 125 mg capsule 125 mg PO TID-QID PRN (Reason: abdominal distention) Qty: 120 2RF Linzess 145 mcg capsule 145 mcg PO DAILY Qty: 30 2RF baclofen 10 mg tablet 10 mg PO BID gabapentin 300 mg capsule 300 mg PO TID (DME) FreeStyle Sal 2 [place] Misc See Rx Instructions .ROUTE .MEDSUPPLY Qty: 1 Rx Instructions: As directed Liletta 20.4 mcg/24 hr (8 yrs) 52 mg intrauterine device intrauterine bisacodyl [Dulcolax (bisacodyl)] 5 mg tablet,delayed release (DR/EC) 10 mg PO BEDTIME Qty: 180 4RF Interventions: ED Discharge Assessment Last Done: 12/27/24 02:02 Discharge Date/Time: 12/27/24 02:03 Print Language: Other
[2024-12-27 01:22] VITALS: BP 136/79; PULSE 61; RESP 16; TEMP 36.8; O2SAT 97
[2024-12-27] MEDS: oxyCODONE HCl Immed Release 5 MG TABLET 10 MG PO (02:00)
[2024-12-27 02:02] VITALS: BP 136/79; PULSE 61; RESP 16; TEMP 36.8; O2SAT 97
== END 2024-12-27 02:03 | disposition home or self-care (01) ==
PROVIDERS: Emergency Provider Internal Medicine; PCP Hospitalist
DX: G43.909 Migraine, unspecified, not intractable, without status migrainosus (principal); K08.89 Other specified disorders of teeth and supporting structures; Z03.818 Encounter for observation for suspected exposure to other biological agents ruled out; Z79.899 Other long term (current) drug therapy; Z79.4 Long term (current) use of insulin
CPT/HCPCS: 0241U; 70450; 80048; 80076; 85025; 85610; 99283; 99284

== ENCOUNTER → 2024-12-27 00:25 | Outpatient (BNV) | payer OTHER, SELFPAY | PROVIDERS: Emergency Provider Internal Medicine; PCP Hospitalist; Visit Provider Radiology Neuroradiology | DX: J34.89 Other specified disorders of nose and nasal sinuses (principal) | CPT/HCPCS: 70450 ==

== ENCOUNTER 2024-12-29 06:28 | Day surgery (SDC) | payer OTHER, SELFPAY ==
--- OUTSIDE RECORDS SUMMARY | 2024-10-02 07:48 | XMS_ITS ---
Author Organization [facility] Address [address] [place] [id number] Care Team Providers Care Chain Puller Name Role Phone ALBERT MOJICA Primary Care Provider REASON FOR VISIT BD needle refill Medications Medication SIG (Take, Route, Frequency, Duration) Notes Start Date End Date Status BD Pen Needle Che U/F 32G X 4 MM Check blood sugar three times a day DX: E11.9 for 30 days Active Encounters Encounter Location Date Provider Diagnosis [facility] [address] [address] 09/14/2024 PRICESONAM MARIONNeil Anemia, unspecified type D64.9 Assessments Encounter Date Diagnosis (ICD Code) Assessment Notes Treatment Notes Treatment Clinical Notes Section Notes 09/14/2024 Anemia, unspecified type (ICD-10 - D64.9) Plan Of Treatment Medication Medication Name Sig Start Date Stop Date Notes BD Pen Needle Che U/F 32G X 4 MM Check blood sugar three times a day DX: E11.9 for 30 days Next Appt Details Provider Name:Eladio multani, 03/14/2025 11:00:00 AM, [address] [place] [address], [place], [phone], Progress Notes * Ele DEL VALLEDOB:1975 ( 49 yo F)Acc No.[id number]:09/14/2024 Patient:?Ele DEL VALLE :1975???Age:49 Y???Sex:Female Address:[facility] [address], [place] [address] * Refills? Refill BD Pen Needle Che U/F Miscellaneous, 32G X 4 MM, 100, Check blood sugar three times a day DX: E11.9, 30 days, Refills=11 Subjective: * Chief Complaints: * ???BD needle refill * Medical History:? * Surgical History:? * Hospitalization/Major Diagno stic Procedure:? * Medications:? Objective: * Vitals:? * Physical Examination:? Assessment: * Assessment: 1.?Anemia, unspecified type - D64.9??? Plan: * Treatment: * Procedure Codes:? * true * Date:? Generated for Alvaro dooley/Bassam/eTtheosmitting on:?10/02/2024 07:48 AM EST
--- OUTSIDE RECORDS SUMMARY | 2024-10-02 07:48 | XMS_ITS | Continuity of Care Document ---
Author Organization [facility] Address [address] [place] [address]- Care Team Providers Care Idea Man Name Role Phone Yarely Rondon MD Primary Care Physician Encounter [facility] NBR [id number] Date(s): 08/29/24 - 09/28/24 [facility] [address] [place] [address]- Encounter Type: Triage Allergies, Adverse Reactions, Alerts No Known Allergies Medications (Vitamin D3) Cholecalciferol 400 FPC units/mL oral syringe 1 mL = 10 [...] hours, PRN for pain, May partial fill [id number], # 12 tablet, 0 Refills, Maintenance, 07/09/23 12:54:00 AM EDT, Tablet, [facility]/pharmacy #[id number], Partial fill upon patient request if the prescription is for a schedule II opioid drug., 1-2 tablet By Mouth Every 6 hours,PRN:for pain,Instr:May partial fill; BS [id number], 160, cm, 07/08/23 21:38:00 EDT, Height, 93, [...] 5 Refills, Maintenance, 12/01/11 1:05:40 PM EST, [facility]/pharmacy #[id number] Start Date: 12/01/11 Status: Ordered [...] 9:03:00 AM EDT, Route to Pharmacy Electronically, [id number], 160, cm, 04/07/22 15:56:00 EDT, Height, 96, [...] 12/10/21 12:52:00PM EDT, Route to Pharmacy Electronically, [facility]/pharmacy #[id number], Partial fill upon patient request [...] Team Personnel Name: Yarely Rondon MD Position: [facility] Physician - Primary Care Member Role: PCP Address: [address] [place] [address] Telecom: Care Team Related Persons Name: FELICITA SPAULDING Name: YO LONG Name: GHAZALA MEZA Name: MIN LOWERY Insurance Providers Guarantor name: [facility] Information #: 1 Payer: [employer] Member Number: NA Policy Number: NA Group Number: NA
--- OUTSIDE RECORDS SUMMARY | 2024-10-02 07:48 | XMS_ITS ---
Author Organization [facility] Address [address] [place] [phone] Care Team Providers Care Hand Stonecutter Name Role Phone ALBERT MOJICA Primary Care Provider [phone] REASON FOR VISIT Colonoscopy Question Encounters Encounter Location Date Provider Diagnosis [facility] [address] [facility] [address] [place] [address] 09/18/2024 ALBERT MOJICA Plan Of Treatment Next Appt Details Provider Name:Eladio multani, 03/14/2025 11:00:00 AM, [address] [facility] [address], [place], [address], Progress Notes * Ele DEL VALLEDOB:1975 ( 49 yo F)Acc No.[id number]:09/18/2024 Patient:?ELIGIO Ele :1975???Age:49 Y???Sex:Female Address:[place] [address] * true * Date:? Generated for Ronniei soumya/Bassam/eTransmitting on:?10/02/2024 07:48 AM EST
--- OUTSIDE RECORDS SUMMARY | 2024-10-02 07:48 | XMS_ITS ---
Author Organization [facility] Address [address] [place] [address] Care Team Providers Care Linux Engineer Name Role Phone CHARLES MOJICAPRICE Primary Care Provider REASON FOR VISIT Refills Medications Medication SIG (Take, Route, Frequency, Duration) Notes Start Date End Date Status Ferrous Gluconate 324 (38 Fe) MG TAKE 1 TABLET BY MOUTH EVERY DAY WITH WATER OR JUICE BETWEEN MEALS for 90 Activ e FreeStyle Sal 2 Sensor - Take as DIREC ALLAN TRANSDERMAL CHANGE EVERY 14 DAYS 30 DAYS for 30 days Active Encounters Encounter Location Date Provider Diagnosis [facility] [address] [address] 09/12/2024 ALBERT MOJICA Other cholelithiasis without obstruction K80.80 Assessments Encounter Date Diagnosis (ICD Code) Assessment Notes Treatment Notes Treatment Clinical Notes Section Notes 09/12/2024 Other cholelithiasis without obstruction (ICD-10 - K80.80) Plan Of Treatment Medication Medication Name Sig Start Date Stop Date Notes Ferrous Gluconate 324 (38 Fe ) MG TAKE 1 TABLET BY MOUTH EVERY DAY WITH WATER OR JUICE BETWEEN MEALS for 90 FreeStyle Sal 2 Sensor - Take as DIREC ALLAN TRANSDERMAL CHANGE EVERY 14 DAYS 30 DAYS for 30 days Next Appt Details Provider Name:Eladio multani, 03/14/2025 11:00:00 AM, [address] [place] [address], [place], [address], Progress Notes * Ele DEL VALLEDOB:1975 ( 49 yo F)Acc No.[id number]:09/12/2024 Patient:?Ele DEL VALLE :1975???Age:49 Y???Sex:Female Address:[facility] [place] [address] * Refills? Refill FreeStyle Sal 2 Sensor Miscellaneous, -, 1, Take as DIRECTED TRANSDERMAL CHANGE EVERY 14 DAYS 30 DAYS, 30 days, Refills=5 Refill Ferrous Gluconate Tablet, 324 (38 Fe) MG, 90 Tablet, TAKE 1 TABLET BY MOUTH EVERY DAY WITH WATER OR JUICE BETWEEN MEALS, 90, Refills=3 * true * Date:? Generated for Alvaro dooley/Bassam/Patysmitting on:?10/02/2024 07:48 AM EST
--- OUTSIDE RECORDS SUMMARY | 2024-10-02 07:49 | XMS_ITS | Patient Health Record ---
Author Organization [employer] Address [address] [place] [address] Care Team Providers Care Operations Support Coordinator Name Role Phone SANAMNeil PRICE Primary Care Provider Tariq Llamas Unavailable [phone] Eladio Garrett Unavailable [phone] Allergies Allergen (clinical drug ingredient) Drug/Non Drug Allergy documented on EMR Reaction Allergy Type Onset Date Status dulaglutide Trulicity nausea/headache Drug Allergy Active Results Component Value Reference Range Notes CBC With Differential/Platel et-[id number] Reviewed date:07/18/2024 10:47:00 PM Interpretation: Performing Lab:[facility], [address], [place], Phone - [phone], Director - Lissette Notes/Report: WBC 12.9 3.4-10.8 [...] % Immature Grans (Abs) 0.1 0.0-0.1 x10E3/uL Comp. Metabolic Panel (14)-3 [id number] Reviewed date:08/18/2024 11:12:10 AM Interpretation: Performing Lab:[facility], [address] [place] [address], Phone - [phone], Director - MDJodry Notes/Report: Glucose 144 70-99 mg/dL BUN 9 [...] 0-40 IU/L ALT (SGPT) 11 0-32 IU/L Hemoglobin I9o-[id number] Reviewed date:08/18/2024 11:01:17 AM Interpretation: Performing Lab:[facility]athewutdeyan[facility]dard, [address] [place] [address], Phone - [phone], Director - MDJodry Notes/Report: Hemoglobin A1c 7.0 4.8-5.6 % . Prediabetes: 5.7 - 6.4 Diabetes: >6.4 Glycemic control for adults with diabetes: <7.0 Iron and TIBC-[id number] Reviewed date:07/18/2024 01:55:05 PM Interpretation: Performing Lab:[facility] Goddard, [address] [place] [address], Phone - [phone], Director - MDJodry Notes/Report: Iron Bind.Cap.(TIBC) 385 250-450 ug/dL UIBC 329 131-425 ug/dL Iron 56 27-159 ug/dL Iron Saturation 15 15-55 % Ferritin-[id number] Reviewed date:07/18/2024 01:54:35 PM Interpretation: Performing Lab:[facility] Goddard, [address] [place] [address], Phone - [phone], Director - Lissette Notes/Report: Ferritin 8 15-150 ng/mL CBC With Differential/Platel et-[id number] Reviewed date:02/17/2024 03:26:04 PM Interpretation: Performing Lab:[facility], [address] [place] [address], Phone - [phone], Director - Lissette Notes/Report: WBC 11.9 3.4-10.8 x10E3/uL RBC 3.51 [...] % Immature Grans (Abs) 0.0 0.0-0.1 x10E3/uL Ferritin-[id number] Reviewed date:02/16/2024 07:49:03 AM Interpretation: Performing Lab:[facility] Goddard, [address] [place] [address], Phone - [phone], Director - Lissette Notes/Report: Ferritin 10 15-150 ng/mL Iron-[id number] Reviewed date:02/16/2024 07:49:05 AM Interpretation: Performing Lab:[facility] [place], [address] [facility], Phone - [phone], Director - Lissette Notes/Report: Iron 15 27-159 ug/dL Hgb A1c with eAG Estimation- [id number] Reviewed date:02/01/2024 07:39:32 AM Interpretation: Performing Lab:[facility] [place], [address] [facility], [place], Phone - [phone], Director - Lissette Notes/Report: Hemoglobin A1c 7.1 4.8-5.6 % . Prediabetes: 5.7 - 6.4 Diabetes: >6.4 Glycemic control for adults with diabetes: <7.0 Estim. Avg Glu (eAG) 157 CBC With Differential/Platel et-[id number] Reviewed date:08/18/2024 11:13:49 AM Interpretation: Performing Lab:[facility] [place], [address] [facility], Phone - [phone], Director - Lissette Notes/Report: WBC 12.4 3.4-10.8 x10E3/uL Effective August 28, 2024 profile [id number] WBC will be made non-orderable as a [...] % Immature Grans (Abs) 0.0 0.0-0.1 x10E3/uL Reason For Referral Reason MARIANNA/MDD Diagnosis 1 Generalized anxiety disorder (F41.1) Diagnosis 2 Major depressive dis order, recurrent, moderate (F33.1) Referral Organization [facility] Referring Provider First Name PRICE Referring Provider Last Name GALINA Referring Provider Speciality Internal M edicine Referred Provider Specialty Psychiatry General Notes Referral printed out and mailed home to patient with a list of Psychiatry for patient to see which one accepts her insurance. [email or web address] 01/07/2024 04:19:53 PM > Referral Priority Routine Reason Evaluation and manag ement Diagnosis 1 Other cholelithiasis without obstruction (K80.80) Referral Organization [facility] Referring Provider First Name Eladio Referring Provider Last Name Tami Referred Provider Specialty Gastrointest inal surgeon General Notes Referral sent to [facility] GI - Office will call pt for scheduling.Chey Latraya 07/13/2024 07:43:35 AM > Referral Priority Stat Reason Evaluation and manag ement Diagnosis 1 Iron deficiency anem ia, unspecified (D50.9) Referral Organization [facility] Referring Provider First Name Eladio Referring Provider Last Name Tami Referred Provider Specialty Hematology General Notes [facility] Office will call patient for scheduling.Chey Latraya 07/14/2024 08:47:08 AM > Referral Priority Urgent Medications Medication SIG (Take, Route, Frequency, Duration) Notes Start Date End Date Status HumaLOG KwikPen 100 UNIT/ML as directed Subcutaneous before meals Active FreeStyle Sal 2 [place] - as directed Active Aspirin Low Dose 81 MG TAKE 1 TABLET BY MOUTH EVERY DAY FOR 90 DAYS for 90 Active Abilify 10 MG 1 tablet Orally Once a day Active Lantus SoloStar 100 UNIT/ML 32 units Subcutaneous once a day for 30 days Active Calcium Carbonate 1250 (500 Ca) MG 1 tablet with food Orally Twice a day Active Vitamin D3 50 MCG (2000 UT) 1 capsule Orally Once a day for 90 days Active BD Pen Needle Che U/F 32G X 4 MM Check blood sugar three times a day DX: E11.9 for 30 days Active Ferrous Gluconate 324 (38 Fe) MG TAKE 1 TABLET BY MOUTH EVERY DAY WITH WATER OR JUICE BETWEEN MEALS for 90 Active FreeStyle Sal 2 Sensor - Take as DIRECTED TRANSDERMAL CHANGE EVERY 14 DAYS 30 DAYS for 30 days Active Fish Oil 1000 MG 1 capsule Orally Onc e a day Active Nitrostat 0.4 MG as directed Sublingual Active Lansoprazole 30 MG 1 capsule before a m eal Orally Once a day for 30 days 08/15/2024 Active FreeStyle Lite Test - as directed In Vitro Active hydrOXYzine HCl 25 MG 1 tablet as needed Orally every 8 hrs Active Metoprolol Tartrate 25 MG 0.5 tablet wit h food Orally Twice a day for 30 day(s) Active SEROquel 25 MG 1 tablet at bedtime Orally Once a day Active Famotidine 40 MG 1 tablet Orally Once a day for 30 days 08/15/2024 Active Ambien 10 MG 1 tablet at bedtime as needed Orally Once a day Active FLUoxetine HCl 40 MG TAKE 1 CAPSULE BY M OUTH EVERY DAY FOR 30 DAYS for 30 Active Nuedexta 20-10 MG 1 capsule Orally Twi ce a day Active Diflucan 150 MG 1 tablet Orally once for 1 days 11/04/2023 Not-Taking traMADol HCl 50 MG 1 tablet as needed Orally Once a day for 14 days 07/14/2024 Not-Taking ProAir HFA 108 (90 Base) MCG/ACT INHALE 2 PUFFS BY MOUTH EVERY 6 HOURS NEEDED for 25 Active tiZANidine HCl 4 MG 1 tablet as needed Orally Three times a day for 7 days 05/06/2022 Not-Taking Nabumetone 500 MG 1 tablet Orally Twic e a day for 30 day(s) 05/21/2020 Active Vicodin 5-300 MG 1 tablet as needed Orally every 6 hrs Not-Taking Gabapentin 300 MG TAKE 1 CAPSULE BY MO UTH THREE TIMES A DAY FOR 30 DAYS for 30 Active Omeprazole 40 MG 1 capsule 30 minutes before morning meal Orally Once a day for 30 days Not-Taking Baclofen 10 MG 1 tablet as needed Orally Twice a day for 30 days Active Laxative 5 MG 1 tablet as needed Orally Once a day Active metFORMIN HCl 1000 MG TAKE 1 TABLET BY M OUTH TWICE A DAY WITH A MEAL FOR 90 DAYS for 90 Active Lisinopril 10 MG TAKE 1 TABLET BY GLORIA EVERY DAY FOR 90 DAYS for 90 Active Amitriptyline HCl 25 MG 1 tablet at bedt david Orally Once a day for 30 day(s) Active Farxiga 10 MG 1/2 tab Orally Once a day Active Albuterol Sulfate HFA 108 (90 Base) MCG/ACT INHALE 2 PUFFS BY MOUTH NEEDED EVERY 6 HOURS. for 25 Active Bactrim DS 800-160 MG 1 tablet Orally Tw ice a day for 3 days 11/04/2023 Not-Taking Prazosin HCl 1 MG 1 capsule at bedtime Orally Once a day for 30 days Active tiZANidine HCl 2 MG 1 tablet as needed Orally Three times a day for 7 days 08/04/2023 Not-Taking FreeStyle Lancets - as directed for [address] 3 1000 MG 3 capsules Orally On ce a day for 30 days 08/13/2023 Active traMADol HCl 50 MG 1 tablet as needed Orally Once a day for 14 days 08/04/2023 Not-Taking Immunizations Vaccine Route Administration Date Status Comme [...] Status Risk Notes Problem Iron deficiency anemia (91481070) Iron deficiency anemia, unspecified (D50.9) Active confirmed Problem Diabetic neuropathy (474401979) Diabetes mellitus due to underlying condition with diabetic neuropathy, unspecified (E08.40) Active confirmed Problem Type II diabetes mellitus without complication (467830101) Type 2 diabetes mellitus without complications (E11.9) Active confirmed Problem 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) Active confirmed Problem Moderate recurrent major depression (11826406) Major depressive disorder, recurrent, moderate (F33.1) Active confirmed Problem Generalized anxiety disorder (02300378) Generalized anxiety disorder (F41.1) Active confirmed Problem Post-traumatic stress disorder (79259625) Post-traumatic stress disorder, unspecified (F43.10) Active confirmed Problem Transient ischemic attack (722266994) Transient cerebral ischemic attack, unspecified (G45.9) Active confirmed Problem Insomnia (231098990) Insomnia, unspecified (G47.00) Active confirmed Problem Vertiginous syndrome (61850696) Unspecified disorder of vestibular function, unspecified ear (H81.90) Active confirmed Problem Essential hypertension (57069025) Essential (primary) hypertension (I10) Active confirmed Problem Gastro-esophageal reflux disease without esophagitis (863775926) Gastro-esophageal reflux disease without esophagitis (K21.9) Active confirmed Problem Cholelithiasis without obstruction (44053073) Other cholelithiasis without obstruction (K80.80) Active confirmed Problem Osteoarthritis (835446376) Unspecified osteoarthritis, unspecified site (M19.90) Active confirmed Problem Backache (781274813) Dorsalgia, unspecified (M54.9) Active confirmed Problem Excessive and frequent menstruation (165459081) Excessive and frequent menstruation with regular cycle (N92.0) Active confirmed Problem Abnormal uterine bleeding (27897637301963) Abnormal uterine and vaginal bleeding, unspecified (N93.9) Active confirmed Problem Abnormal gait (52085336) Unspecified abnormalities of gait and mobility (R26.9) Active confirmed Problem Long-term current use of insulin (978275185) [facility] (current) use of insulin (Z79.4) Active confirmed Problem Essential hypertension (95929545) HTN (hypertension), benign (I10) Active confirmed Problem Anemia (473824246) Anemia, unspecified type (D64.9) Active confirmed Problem Menstrual periods irregular (32334173) Menstrual periods irregular (N92.6) Active confirmed Vital Signs Heart Rate 74 /min 09/12/2024 Temperature 98.1 degrees Fahrenheit 09/12/2024 Blood pressure diastolic 70 mm Hg 09/12/2024 Oximetry 99 % 09/12/2024 Height 64 in 09/12/2024 Blood pressure systolic 118 mm Hg 09/12/2024 Weight 193.4 lbs 09/12/2024 BMI 33.19 kg/m2 09/12/2024 Encounters Encounter Location Date Provider Diagnosis [address] [place] [address] 05/05/[address] [place] [address] 08/16/[address] [address] 11/04/2023 ALBERT MARION Urinary tract infection, site not specified N39.0 and Diabetes mellitus due to underlying condition with diabetic neuropathy, unspecified E08.[address] [address] 12/03/2023 ALBERT MOJICA Diabetes mellitus du e to underlying condition with diabetic neuropathy, unspecified E08.40 ; Generalized anxiety disorder F41.1 ; Insomnia, unspecified G47.00 and Major depressive disorder, recurrent, moderate F33.[address] [address] 02/03/2024 [facility] Helicobacter pylori [H. pylori] as the cause of diseases classified elsewhere B96.81 ; Leiomyoma of uterus, unspecified D25.9 ; Abnormal uterine and vaginal bleeding, unspecified N93.9 ; Generalized anxiety disorder F41.1 and Headache, unspecified R51.[address] [address] 03/08/2024 Ghadeer Mazloum Diabetes mellitus du e to underlying condition with diabetic neuropathy, unspecified E08.40 ; Essential (primary) hypertension I10 ; Anemia, unspecified D64.9 ; Menstrual periods irregular N92.6 and Gastro-esophageal reflux disease without esophagitis K21.[address] [address] 07/12/2024 Ghadeer Mazloum Other cholelithiasis without obstruction K80.80 ; Anemia, unspecified type D64.9 and Diabetes mellitus due to underlying condition with diabetic neuropathy, unspecified E08.40 [facility] [address] [place] [address] 08/15/2024 Ghadeer Mazloum Pre-operative cleara nce Z01.818 ; Anemia, unspecified type D64.9 ; Menstrual periods irregular N92.6 and Other cholelithiasis without obstruction K80.80 [facility] [address] [place] [address] 09/12/2024 Aroosa Alam Anemia, unspecified type D64.9 ; Annual physical exam Z00.00 ; Menstrual periods irregular N92.6 and Other cholelithiasis without obstruction K80.80 [facility] [address] [place] [address] 11/22/[address] [place] [address] 02/03/2024 [facility] [address] [place] [address] 03/03/[address] [place] [address] 03/17/2024 [facility] [address] [place] [address] 05/05/2024 [facility] [address] [place] [address] 07/12/2024 [facility] [address] [place] [address] 07/17/2024 [facility] [address] [place] [address] 07/18/2024 Ghadeer Mazloum Other cholelithiasis without obstruction K80.[address] [place] [address] 08/04/2024 PRICE GALINA [address] [place] [address] 08/08/2024 PRICE GUL Other cholelithiasis without obstruction K80.[address] [place] [address] 08/18/[address] [place] [address] 08/18/2024 Eladio Garrett [address] [place] [address] 09/12/2024 PRICE GUL Other cholelithiasis without obstruction K80.[address] [place] [address] 09/14/2024 PRICE GUL Anemia, unspecified type D64.[address] [place] [address] 09/18/[address] [place] [address] 10/15/[address] [place] [address] 01/28/2024 PRICE SANAML Excessive and freque nt menstruation with regular cycle N92.[address] [place] [address] 08/25/2024 Eladio Garrett Assessments Encounter Date Diagnosis (ICD Code) Assessment Notes Treatment Notes Treatment Clinical Notes Section Notes 01/28/2024 Excessive and frequent menstruation with regular cycle (ICD-10 - N92.0) 03/08/2024 Diabetes mellitus due to underlying condition with diabetic neuropathy, unspecified (ICD-10 - E08.40) Mrs. Marlow is a 48-year-old female Kyrgyz-speaking patient with type 2 diabetes mellitus and [...] I10) Mrs. Marlow is a 48-year-old female [place]yr[place]z-speaking patient with type 2 diabetes mellitus and [...] K80.80) Mrs. Marlow is a 48-year-old female [place]z-speaking patient with type 2 diabetes mellitus and [...] transfusion. Otherwise, she will be referred to engraver picture. I have rendered the services for this patient under direct supervision of Dr. Mojica, who did not see the patient but was available upon request 07/12/2024 Anemia, unspecified type (ICD-10 - D64.9) Mrs. Marlow is a 48-year-old female [place]yrgyz-speaking patient with type 2 diabetes mellitus and [...] transfusion. Otherwise, she will be referred to engraver picture. I have rendered the services for this patient under direct supervision of Dr. Mojica, who did not see the patient but was available upon request 08/08/2024 Other cholelithiasis without obstruction (ICD-10 - K80.80) 02/03/2024 Helicobacter pylori [H. pylori] as the cause of diseases classified elsewhere (ICD-10 - B96.81) Mrs. Marlow is a 48-year-old female [place]yrgyz speaking patient with type 2 diabetes mellitus and multiple psych issues here for follow up. She was recently diagnosed with H. pylori. She was not feeling well and had menorrhagia and she went to [facility]. She had CT abdomen and pelvis which showed fibroid and thickening of the uterus.Plan is as follows: H. pylori infection. She is currently on antibiotics for 2 weeks and then she will have a follow-up with GI for urea breath test Menorrhagia. She saw her sewer contractor and had a biopsy done and will [...] this note under HIPAA compliance and under [place] law mandated for scribe services. Patient aware of service. Verbal consent and written consent taken from the patient. Patient understands and verbalizes understanding of the scribes services and all questions answered regarding scribes services. Patient agrees to use of scribes services. 02/03/2024 Leiomyoma of uterus, unspecified (ICD-10 - D25.9) Mrs. Marolw is a 48-year-old female [place]yrgyz speaking patient with type 2 diabetes mellitus and multiple psych issues here for follow up. She was recently diagnosed with H. pylori. She was not feeling well and had menorrhagia and she went to [facility]. She had CT abdomen and pelvis which showed fibroid and thickening of the uterus.Plan is as follows: H. pylori infection. She is currently on antibiotics for 2 weeks and then she will have a follow-up with GI for urea breath test Menorrhagia. She saw her sewer contractor and had a biopsy done and will [...] this note under HIPAA compliance and under [place] law mandated for scribe services. Patient aware of service. Verbal consent and written consent taken from the patient. Patient understands and verbalizes understanding of the scribes services and all questions answered regarding scribes services. Patient agrees to use of scribes services. 12/03/2023 Diabetes mellitus due to underlying condition with diabetic neuropathy, unspecified (ICD-10 - E08.40) Mrs. Marlow is a 48-year-old female [place]yrgyz speaking patient with type 2 diabetes mellitus and multiple psych issues here complaining of severe stomach pain. Plan is as follows: Type II diabetes mellitus with neuropathy. She is on right medications. She has seen an communications analyst for the past year. Foot care discussed. Check A1c. MARIANNA/MDD/Insomnia. She was seen at [facility], all her exams are negative and was [...] concerns discussed with patient discharge or from [facility] reviewed Scribe services used to formulate this note under HIPAA compliance and under [place] law mandated for scribe services. Patient aware of service. Verbal consent and written consent taken from the patient. Patient understands and verbalizes understanding of the scribes services and all questions answered regarding scribes services. Patient agrees to use of scribes services. 12/03/2023 Generalized anxiety disorder (ICD-10 - F41.1) Mrs. Marlow is a 48-year-old female Kyrgyz speaking patient with type 2 diabetes mellitus and multiple psych issues here complaining of severe stomach pain. Plan is as follows: Type II diabetes mellitus with neuropathy. She is on right medications. She has seen an communications analyst for the past year. Foot care discussed. Check A1c. MARIANNA/MDD/Insomnia. She was seen at [facility], all her exams are negative and was [...] concerns discussed with patient discharge or from [facility] reviewed Scribe services used to formulate this note under HIPAA compliance and under [place] law mandated for scribe services. Patient aware of service. Verbal consent and written consent taken from the patient. Patient understands and verbalizes understanding of the scribes services and all questions answered regarding scribes services. Patient agrees to use of scribes services. 11/04/2023 Urinary tract infection, site not specified (ICD-10 - N39.0) Mrs. Marlow is a 48-year-old female Kyrgyz speaking patient with type 2 diabetes mellitus [...] on right medications. She has seen an communications analyst for the past year. Foot care discussed. check A1c. Blood work reviewed with patient and questions answered. Screening blood work before next appointment. General health concerns discussed with patient. Scribe services used to formulate this note under HIPAA compliance and under [place] law mandated for scribe services. Patient aware of service. Verbal consent and written consent taken from the patient. Patient understands and verbalizes understanding of the scribes services and all questions answered regarding scribes services. Patient agrees to use of scribes services. 09/12/2024 Annual physical exam (ICD-10 - Z00.00) Mrs. Marlow is a 49-year-old female Kyrgyz-speaking patient with type 2 diabetes mellitus anxiety depression is here today for CPE.. hypertension blood pressure is stable today, last blood work done was unremarkable.she is on metoprolol which she will continue. Anxiety and depression her PHQ score is 18 however when I asked multiple questions her complaints are mostly missing her home country overall change in life, feeling fatigued at time and not really seriously depressed or anxious. Confirmed with her daughter who is very supportive. Patient is on fluoxetine and taking it regularly. She sleeps well. insulin-dependent diabetes mellitus, HbA1c is improved to 7.0 she checks her sugars regularly mostly morning fasting glucose is 130. She will continue with dietary restriction and weight loss Constipation she is on laxatives history of H pylori completed therapy with Dr. Bebo Chavezagia Anemia, iron deficiency anemia patient is on iron supplements but that causes constipation she will be following up with hematology if she needs iron infusion. -. Managed by Obgyn. She will be getting an IUD to regulate period. Cholelithiasis: - She is currently following up with GI surgeon.and plan for cholecystectomy in September 2024 preventive care measures listed below she will be given a referral for mammogram today She does not want Clomid vaccine and does not want flu vaccination she does not want tdap either 09/12/2024 Anemia, unspecified type (ICD-10 - D64.9) Mrs. Marlow is a 49-year-old female Kyrgyz-speaking patient with type 2 diabetes mellitus anxiety depression is here today for CPE.. hypertension blood pressure is stable today, last blood work done was unremarkable.she is on metoprolol which she will continue. Anxiety and depression her PHQ score is 18 however when I asked multiple questions her complaints are mostly missing her home country overall change in life, feeling fatigued at time and not really seriously depressed or anxious. Confirmed with her daughter who is very supportive. Patient is on fluoxetine and taking it regularly. She sleeps well. insulin-dependent diabetes mellitus, HbA1c is improved to 7.0 she checks her sugars regularly mostly morning fasting glucose is 130. She will continue with dietary restriction and weight loss Constipation she is on laxatives history of H pylori completed therapy with Dr. Bebo Chavezagia Anemia, iron deficiency anemia patient is on iron supplements but that causes constipation she will be following up with hematology if she needs iron infusion. -. Managed by Obgyn. She will be getting an IUD to regulate period. Cholelithiasis: - She is currently following up with GI surgeon.and plan for cholecystectomy in September 2024 preventive care measures listed below she will be given a referral for mammogram today She does not want Clomid vaccine and does not want flu vaccination she does not want tdap either 08/15/2024 Pre-operative clearance (ICD-10 - Z01.818) Mrs. Marlow is a 49-year-old female Kyrgyz-speaking patient with type 2 diabetes mellitus and [...] Other cholelithiasis without obstruction (ICD-10 - K80.80) 09/14/2024 Anemia, unspecified type (ICD-10 - D64.9) 09/12/2024 Other cholelithiasis without obstruction (ICD-10 - K80.80) 08/15/2024 Anemia, unspecified type (ICD-10 - D64.9) Mrs. Marlow is a 49-year-old female Kyrgyz-speaking patient with type 2 diabetes mellitus and [...] the patient but was available upon request 09/12/2024 Menstrual periods irregular (ICD-10 - N92.6) Mrs. Marlow is a 49-year-old female Kyrgyz-speaking patient with type 2 diabetes mellitus anxiety depression is here today for CPE.. hypertension blood pressure is stable today, last blood work done was unremarkable.she is on metoprolol which she will continue. Anxiety and depression her PHQ score is 18 however when I asked multiple questions her complaints are mostly missing her home country overall change in life, feeling fatigued at time and not really seriously depressed or anxious. Confirmed with her daughter who is very supportive. Patient is on fluoxetine and taking it regularly. She sleeps well. insulin-dependent diabetes mellitus, HbA1c is improved to 7.0 she checks her sugars regularly mostly morning fasting glucose is 130. She will continue with dietary restriction and weight loss Constipation she is on laxatives history of H pylori completed therapy with Dr. Lagunas Menorrhagia Anemia, iron deficiency anemia patient is on iron supplements but that causes constipation she will be following up with hematology if she needs iron infusion. -. Managed by Obgyn. She will be getting an IUD to regulate period. Cholelithiasis: - She is currently following up with GI surgeon.and plan for cholecystectomy in September 2024 preventive care measures listed below she will be given a referral for mammogram today She does not want Clomid vaccine and does not want flu vaccination she does not want tdap either 07/12/2024 Diabetes mellitus due to underlying condition with diabetic neuropathy, unspecified (ICD-10 - E08.40) Mrs. Marlow is a 48-year-old female Kyrgyz-speaking patient with type 2 diabetes mellitus and [...] transfusion. Otherwise, she will be referred to engraver picture. I have rendered the services for this patient under direct supervision of Dr. Mojica, who did not see the patient but was available upon request 12/03/2023 Insomnia, unspecified (ICD-10 - G47.00) Mrs. Marlow is a 48-year-old female Kyrgyz speaking patient with type 2 diabetes mellitus and multiple psych issues here complaining of severe stomach pain. Plan is as follows: Type II diabetes mellitus with neuropathy. She is on right medications. She has seen an communications analyst for the past year. Foot care discussed. Check A1c. MARIANNA/MDD/Insomnia. She was seen at [facility], all her exams are negative and was [...] concerns discussed with patient discharge or from [facility] reviewed Scribe services used to formulate this note under HIPAA compliance and under [place] law mandated for scribe services. Patient aware of service. Verbal consent and written consent taken from the patient. Patient understands and verbalizes understanding of the scribes services and all questions answered regarding scribes services. Patient agrees to use of scribes services. 11/04/2023 Diabetes mellitus due to underlying condition with diabetic neuropathy, unspecified (ICD-10 - E08.40) Mrs. Marlow is a 48-year-old female Kyrgyz speaking patient with type 2 diabetes mellitus [...] on right medications. She has seen an communications analyst for the past year. Foot care discussed. check A1c. Blood work reviewed with patient and questions answered. Screening blood work before next appointment. General health concerns discussed with patient. Scribe services used to formulate this note under HIPAA compliance and under [place] law mandated for scribe services. Patient aware of service. Verbal consent and written consent taken from the patient. Patient understands and verbalizes understanding of the scribes services and all questions answered regarding scribes services. Patient agrees to use of scribes services. 02/03/2024 Abnormal uterine and vaginal bleeding, unspecified (ICD-10 - N93.9) Mrs. Marlow is a 48-year-old female Kyrgyz speaking patient with type 2 diabetes mellitus and multiple psych issues here for follow up. She was recently diagnosed with H. pylori. She was not feeling well and had menorrhagia and she went to [facility]. She had CT abdomen and pelvis which showed fibroid and thickening of the uterus.Plan is as follows: H. pylori infection. She is currently on antibiotics for 2 weeks and then she will have a follow-up with GI for urea breath test Menorrhagia. She saw her sewer contractor and had a biopsy done and will [...] this note under HIPAA compliance and under [place] law mandated for scribe services. Patient aware of service. Verbal consent and written consent taken from the patient. Patient understands and verbalizes understanding of the scribes services and all questions answered regarding scribes services. Patient agrees to use of scribes services. 03/08/2024 Anemia, unspecified (ICD-10 - D64.9) Mrs. Marlow is a 48-year-old female Kyrgyz-speaking patient with type 2 diabetes mellitus and [...] with the above mentioned assessment and plan 02/03/2024 Generalized anxiety disorder (ICD-10 - F41.1) Mrs. Marlow is a 48-year-old female Kyrgyz speaking patient with type 2 diabetes mellitus and multiple psych issues here for follow up. She was recently diagnosed with H. pylori. She was not feeling well and had menorrhagia and she went to [facility]. She had CT abdomen and pelvis which showed fibroid and thickening of the uterus.Plan is as follows: H. pylori infection. She is currently on antibiotics for 2 weeks and then she will have a follow-up with GI for urea breath test Menorrhagia. She saw her sewer contractor and had a biopsy done and will [...] this note under HIPAA compliance and under [place] law mandated for scribe services. Patient aware of service. Verbal consent and written consent taken from the patient. Patient understands and verbalizes understanding of the scribes services and all questions answered regarding scribes services. Patient agrees to use of scribes services. 03/08/2024 Menstrual periods irregular (ICD-10 - N92.6) Mrs. Marlow is a 48-year-old female Kyrgyz-speaking patient with type 2 diabetes mellitus and [...] with the above mentioned assessment and plan 12/03/2023 Major depressive disorder, recurrent, moderate (ICD-10 - F33.1) Mrs. Marlow is a 48-year-old female Kyrgyz speaking patient with type 2 diabetes mellitus and multiple psych issues here complaining of severe stomach pain. Plan is as follows: Type II diabetes mellitus with neuropathy. She is on right medications. She has seen an communications analyst for the past year. Foot care discussed. Check A1c. MARIANNA/MDD/Insomnia. She was seen at [facility], all her exams are negative and was [...] concerns discussed with patient discharge or from [facility] reviewed Scribe services used to formulate this note under HIPAA compliance and under [place] law mandated for scribe services. Patient aware of service. Verbal consent and written consent taken from the patient. Patient understands and verbalizes understanding of the scribes services and all questions answered regarding scribes services. Patient agrees to use of scribes services. 09/12/2024 Other cholelithiasis without obstruction (ICD-10 - K80.80) Mrs. Marlow is a 49-year-old female Kyrgyz-speaking patient with type 2 diabetes mellitus anxiety depression is here today for CPE.. hypertension blood pressure is stable today, last blood work done was unremarkable.she is on metoprolol which she will continue. Anxiety and depression her PHQ score is 18 however when I asked multiple questions her complaints are mostly missing her home country overall change in life, feeling fatigued at time and not really seriously depressed or anxious. Confirmed with her daughter who is very supportive. Patient is on fluoxetine and taking it regularly. She sleeps well. insulin-dependent diabetes mellitus, HbA1c is improved to 7.0 she checks her sugars regularly mostly morning fasting glucose is 130. She will continue with dietary restriction and weight loss Constipation she is on laxatives history of H pylori completed therapy with Dr. Lagunas Menorrhagia Anemia, iron deficiency anemia patient is on iron supplements but that causes constipation she will be following up with hematology if she needs iron infusion. -. Managed by Obgyn. She will be getting an IUD to regulate period. Cholelithiasis: - She is currently following up with GI surgeon.and plan for cholecystectomy in September 2024 preventive care measures listed below she will be given a referral for mammogram today She does not want Clomid vaccine and does not want flu vaccination she does not want tdap either 08/15/2024 Menstrual periods irregular (ICD-10 - N92.6) Mrs. Marlow is a 49-year-old female Kyrgyz-speaking patient with type 2 diabetes mellitus and [...] the patient but was available upon request 08/15/2024 Other cholelithiasis without obstruction (ICD-10 - K80.80) Mrs. Marlow is a 49-year-old female Kyrgyz-speaking patient with type 2 diabetes mellitus and [...] R51.9) Mrs. Marlow is a 48-year-old female Kyrgyz speaking patient with type 2 diabetes mellitus and multiple psych issues here for follow up. She was recently diagnosed with H. pylori. She was not feeling well and had menorrhagia and she went to [facility]. She had CT abdomen and pelvis which showed fibroid and thickening of the uterus.Plan is as follows: H. pylori infection. She is currently on antibiotics for 2 weeks and then she will have a follow-up with GI for urea breath test Menorrhagia. She saw her sewer contractor and had a biopsy done and will [...] this note under HIPAA compliance and under [place] law mandated for scribe services. Patient aware of service. Verbal consent and written consent taken from the patient. Patient understands and verbalizes understanding of the scribes services and all questions answered regarding scribes services. Patient agrees to use of scribes services. 03/08/2024 Gastro-esophageal reflux disease without esophagitis (ICD-10 - K21.9) Mrs. Marlow is a 48-year-old female Kyrgyz-speaking patient with type 2 diabetes mellitus and [...] with the above mentioned assessment and plan Plan Of Treatment Pending Test Test Name Order Date MRI : Brain 02/03/2024 Comp. Metabolic Panel (14) 03/08/2024 MRI : Brain without Contrast 02/07/2024 COMPREHENSIVE METABOLIC PANEL 09/30/2022 H. PYLORI ANTIGEN, STOOL 11/27/2019 HEMOGLOBIN A1C 06/05/2022 HEMOGLOBIN A1C WITH EST GLUCOSE 09/30/19 23 HEMOGLOBIN A1C WITH EST GLUCOSE 01/29/20 23 TSH WITH REFLEX TO FT4 09/30/2022 Mammo: Diagnostic Mammogram Bilateral CBC/Differential (No Platelet)-[id number] CBC/Differential (No Platelet)-[id number] A1c w/GlycoMark(R) Reflex-[id number] Next Appt Details Provider Name:Eladio multani, 03/14/2025 11:00:00 AM, [address] [place] [address], [id number], Insurance Providers Payer Name Payer Address Payer Phone Subscriber Number Group Number Insured Name Patient Relationship to Insured Coverage Start Date Coverage End Date [facility]) 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
[2024-11-08 12:51] VITALS: BMI 33.7
--- NOTE | 2024-12-28 13:04 | MHC.SHP ---
Pre-Procedural Eval Section A - 24 Hr Update-Section A only Date of Service: 12/29/24 The patient is an INPATIENT: No Changes since office visit: No Cold of Flu in the past 2 weeks, No New Medical Problems, No Changes in Medication and No Patient answered all questions Section B - Complete if H&P > 30 days Chief Complaint: Calculus of gallbladder without cholecystitis with Allergies: Allergies Allergy/AdvReac Type Severity Reaction Status Date / Time No Known Allergies Allergy Verified 12/26/24 18:30 Review of Systems Sugical H&P ROS: Negative: Constitution, Cardiovascular, Respiratory, Neurological, Psychiatric, Hem-Onc, Allergic/Immunologic, Gastrointestinal, Genitourinary, Musculoskeletal, Integumentary, Endocrine and Eyes/Ears/Nose/Throat Exam Surgical H&P Exam: Normal: HEENT, Normal: Heart, Normal: Lungs, Normal: Extremities, Normal: Abdomen, Normal: Skin and Normal: Neurological Plan I have reviewed the history and physical and performed a pertinent physical examination on my patient. No changes have occurred unless specified. Time Spent With Patient Time: Total time managing care of this patient today ____ minutes.
[2024-12-29] VITALS (13 sets, daily range): BP systolic 129–153; BP diastolic 65–87; PULSE 70–96; RESP 10–16; TEMP 36.1–37.2; O2SAT 89–100; BMI 33.2
[2024-12-29 07:52] LABS: UPreg QC Valid YES
[2024-12-29 07:54] LABS: Urine Pregnancy NEGATIVE (NEGATIVE)
[2024-12-29] MEDS: Lactated Ringers 1,000 ML 100 ML IVCONT (08:08)
--- NOTE | 2024-12-29 08:29 | HO.ANESPROP2 ---
Documented by User: Anne Marie Coreas NP 12/27/24 14:41 HPI - Anesthesia Eval Consult details Narrative: 49yo F for Cholecystectomy Laparoscopic, possible open s/p EGD and [place] 08/2024 with [facility] PMFSH Active Problems Active Problems: All Active Problems Migraine aura occurring with and without headache (Acute) GERD (gastroesophageal reflux disease) (Acute) Symptomatic cholelithiasis (Acute) Type 2 diabetes mellitus with polyneuropathy (Acute) Type 2 diabetes mellitus with hyperglycemia, with long-term current use of insulin (Acute) Essential hypertension (Acute) Vitamin D insufficiency (Acute) Past Medical History Medical History GERD (gastroesophageal reflux disease) Acid indigestion Back pain Palpitations Leukocytosis Depression Anxiety Asthma Migraine Type 2 diabetes mellitus with polyneuropathy Type 2 diabetes mellitus with hyperglycemia, with long-term current use of insulin Essential hypertension Vitamin D insufficiency Family History Family History Father Hypertension Diabetes Heart disease Mother Diabetes Heart disease Hypertension Family history of problems with anesthesia: No Surgical History Surgical History History of esophagogastroduodenoscopy (EGD) H/O colonoscopy Hx of section History of Problems with Anesthesia: No Social History Social History Household Members: Family and Children Are you a primary palliative care nurse to a significant other at home: No Do you presently have visiting nurse or other home services: No Alcohol intake: current Alcohol intake frequency: does not drink Patient Tobacco Use Status: Never used Tobacco Second Hand Smoke Exposure: No Use of substances other than those prescribed or required for medical reasons: No Have you been hit, kicked, punched, or otherwise hurt by someone within the past year? If so, by whom?: No Are you DNR?: No Advance Directives: No Advance Directives Information Provided: Yes Patient : No FDLMP: 12/15/24 Meds Allergies Allergy/AdvReac Type Severity Reaction Status Date / Time No Known Allergies Allergy Verified 12/29/24 07:58 Home Medications ?Medication ?Instructions ?Recorded ?Confirmed ?Last Taken ?Type albuterol sulfate 90 mcg/actuation 2 puff inhalation Q4-5H PRN 07/04/20 09/15/24 Unknown History aerosol inhaler Shortness Of Breath amitriptyline 25 mg tablet 25 mg PO DAILY 07/04/20 09/15/24 Unknown History fluticasone propionate 50 1 spray intranasal DAILY 07/04/20 09/15/24 Unknown History mcg/actuation nasal spray,suspension (Flonase Allergy Relief) hydroxyzine HCl 25 mg tablet 25 mg PO BEDTIME 07/04/20 09/15/24 Unknown History lisinopril 10 mg tablet 10 mg PO DAILY 07/04/20 09/15/24 Unknown History quetiapine 25 mg tablet (Seroquel) 25 mg PO BEDTIME 07/04/20 09/15/24 Unknown History zolpidem 10 mg tablet (Ambien) 10 mg PO BEDTIME PRN Insomnia 07/04/20 09/15/24 Unknown History blood sugar diagnostic #10 ea 07/15/20 09/04/24 Unknown History loratadine 10 mg tablet (Allergy 10 mg PO DAILY PRN Allergy Symptoms 12/16/20 09/15/24 Unknown History Relief (loratadine)) meloxicam 7.5 mg tablet 7.5 mg PO DAILY 05/02/21 09/15/24 Unknown History aspirin 81 mg tablet,delayed 81 mg PO DAILY 11/22/23 09/15/24 Unknown History release calcium carbonate 500 mg PO BID 11/22/23 09/15/24 Unknown History latanoprost 0.005 % eye drops 1 drp ophthalmic (eye) BEDTIME 11/22/23 09/15/24 Unknown History metoprolol tartrate 25 mg tablet 12.5 mg PO BID 11/22/23 09/15/24 Unknown History baclofen 10 mg tablet 10 mg PO BID 09/04/24 09/15/24 Unknown History flash glucose scanning reader #1 ea 09/04/24 09/04/24 Unknown History ([employer] [place]) gabapentin 300 mg capsule 300 mg PO TID 09/04/24 09/15/24 Unknown History levonorgestrel 20.4 mcg/24 hr (up intrauterine 09/04/24 09/04/24 Unknown History to 8 yrs) 52 mg intrauterine device (Liletta) benzonatate 100 mg capsule 100 mg PO TID cough 12/29/24 12/29/24 Unknown History clindamycin HCl 300 mg capsule 300 mg PO TID 12/29/24 12/29/24 Unknown History metoclopramide HCl 10 mg tablet mg 12/29/24 Unknown History metoclopramide HCl 10 mg tablet mg 12/29/24 Unknown History tramadol 50 mg tablet 50 mg PO Q6H PRN Pain 12/29/24 12/29/24 Unknown History Exam Height,Weight and Vital Signs: Height 5 ft 3 in Weight 86.183 kg Pertinent Lab Results Pertinent Lab Results: Laboratory Tests 12/26/24 18:43 WBC 9.0 Hgb 13.4 Hct 40.7 Plt Count 269 Sodium 138 Potassium 4.4 Chloride 106 Carbon Dioxide 24 BUN 9 Creatinine 0.71 Narrative Narrative: EKG 10/2024 Vent. Rate : 76 BPM Atrial Rate : 76 BPM P-R Int : 170 ms QRS Dur : 74 ms QT Int : 366 ms P-R-T Axes : 52 6 41 degrees QTcB Int : 411 ms Normal sinus rhythm Possible Anterior infarct (cited on or before 20-Mar-2012) Abnormal ECG When compared with ECG of 10-Jul-2024 01:26, No significant change was found Assessment and Plan Assessment Anesthesia Assessment: Chart Reviewed Final Anesthetic Review Family History of Problems with Anesthesia: No History of Problems with Anesthesia: No Documented by User: Angela Ellison DO 12/29/24 08:31 [facility] Past Medical History Medical History GERD (gastroesophageal reflux disease) Acid indigestion Back pain Palpitations Leukocytosis Depression Anxiety Asthma Migraine Type 2 diabetes mellitus with polyneuropathy Type 2 diabetes mellitus with hyperglycemia, with long-term current use of insulin Essential hypertension Vitamin D insufficiency Family History Family History Father Hypertension Diabetes Heart disease Mother Diabetes Heart disease Hypertension Family history of problems with anesthesia: No Surgical History Surgical History History of esophagogastroduodenoscopy (EGD) H/O colonoscopy Hx of section History of Problems with Anesthesia: No Social History Social History Household Members: Family and Children Are you a primary palliative care nurse to a significant other at home: No Do you presently have visiting nurse or other home services: No Alcohol intake: current Alcohol intake frequency: does not drink Patient Tobacco Use Status: Never used Tobacco Second Hand Smoke Exposure: No Use of substances other than those prescribed or required for medical reasons: No Have you been hit, kicked, punched, or otherwise hurt by someone within the past year? If so, by whom?: No Are you DNR?: No Advance Directives: No Advance Directives Information Provided: Yes Patient : No FDLMP: 12/15/24 Meds Allergies Allergy/AdvReac Type Severity Reaction Status Date / Time No Known Allergies Allergy Verified 12/29/24 07:58 Home Medications ?Medication ?Instructions ?Recorded ?Confirmed ?Last Taken ?Type albuterol sulfate 90 mcg/actuation 2 puff inhalation Q4-5H PRN 07/04/20 09/15/24 Unknown History aerosol inhaler Shortness Of Breath amitriptyline 25 mg tablet 25 mg PO DAILY 07/04/20 09/15/24 Unknown History fluticasone propionate 50 1 spray intranasal DAILY 07/04/20 09/15/24 Unknown History mcg/actuation nasal spray,suspension (Flonase Allergy Relief) hydroxyzine HCl 25 mg tablet 25 mg PO BEDTIME 07/04/20 09/15/24 Unknown History lisinopril 10 mg tablet 10 mg PO DAILY 07/04/20 09/15/24 Unknown History quetiapine 25 mg tablet (Seroquel) 25 mg PO BEDTIME 07/04/20 09/15/24 Unknown History zolpidem 10 mg tablet (Ambien) 10 mg PO BEDTIME PRN Insomnia 07/04/20 09/15/24 Unknown History blood sugar diagnostic #10 ea 07/15/20 09/04/24 Unknown History loratadine 10 mg tablet (Allergy 10 mg PO DAILY PRN Allergy Symptoms 12/16/20 09/15/24 Unknown History Relief (loratadine)) meloxicam 7.5 mg tablet 7.5 mg PO DAILY 05/02/21 09/15/24 Unknown History aspirin 81 mg tablet,delayed 81 mg PO DAILY 11/22/23 09/15/24 Unknown History release calcium carbonate 500 mg PO BID 11/22/23 09/15/24 Unknown History latanoprost 0.005 % eye drops 1 drp ophthalmic (eye) BEDTIME 11/22/23 09/15/24 Unknown History metoprolol tartrate 25 mg tablet 12.5 mg PO BID 11/22/23 09/15/24 Unknown History baclofen 10 mg tablet 10 mg PO BID 09/04/24 09/15/24 Unknown History flash glucose scanning reader #1 ea 09/04/24 09/04/24 Unknown History ([employer] [place]) gabapentin 300 mg capsule 300 mg PO TID 09/04/24 09/15/24 Unknown History levonorgestrel 20.4 mcg/24 hr (up intrauterine 09/04/24 09/04/24 Unknown History to 8 yrs) 52 mg intrauterine device (Liletta) benzonatate 100 mg capsule 100 mg PO TID cough 12/29/24 12/29/24 Unknown History clindamycin HCl 300 mg capsule 300 mg PO TID 12/29/24 12/29/24 Unknown History metoclopramide HCl 10 mg tablet mg 12/29/24 Unknown History metoclopramide HCl 10 mg tablet mg 12/29/24 Unknown History tramadol 50 mg tablet 50 mg PO Q6H PRN Pain 12/29/24 12/29/24 Unknown History Exam Exam Date and Time: 12/29/24 0825 Height,Weight and Vital Signs: Height 5 ft 3 in Weight 86.183 kg Vital Signs Temperature 99.0 F 12/29/24 08:04 Pulse Rate 85 12/29/24 08:04 Respiratory Rate 14 12/29/24 08:04 Blood Pressure 134/87 12/29/24 08:04 Pulse Oximetry 98 12/29/24 08:04 Oxygen Delivery Method Room Air 12/29/24 08:04 Temperature 99.0 F 12/29/24 08:04 Pulse Rate 85 12/29/24 08:04 Respiratory Rate 14 12/29/24 08:04 Blood Pressure 134/87 12/29/24 08:04 Pulse Oximetry 98 12/29/24 08:04 Oxygen Delivery Method Room Air 12/29/24 08:04 Airway Mallampati Class: II TM Dist: >3cm Neck ROM: Full Loose/Missing/Broken Teeth: No (patient denies any loose or broken teeth) Heart: S1S2 Lungs: CTAB Assessment and Plan Assessment Anesthesia Assessment: Anesthesia Plan Discussed and Chart Reviewed Final Anesthetic Review Family History of Problems with Anesthesia: No History of Problems with Anesthesia: No NPO: Yes ASA Class: II Final Preanesthetic Review: No Changes in Pt Med Stat, Meds/Allgs Chart Reviewed, Consent Obtained/Reviewed (Faroese cardiovascular lab director at bedside for translation) and Anes Risks/Benef Reviewed Patient Risk: Low Procedure Risk: Intermediate Anesthetic Plan Anesthetic Plan: GA and Agree w/ Assess. and Plan Disposition: Standard PACU
--- NOTE | 2024-12-29 09:28 | W.PM.OPN ---
Operative Note Operative Note Date of Service: 12/29/24 Narrative: Preoperative diagnosis: [] Symptomatic gallbladder Postop diagnosis: [] The same Procedure [] laparoscopic cholecystectomy Surgeon: [] Farhat Tricot Knitter: [] Shashi Type of Anesthesia: [] General Indication for surgery: [] Gallbladder with omental and gastric adhesions to it. Moderately intrahepatic gallbladder. Findings: [] Patient brought to the operating room, placed on operative table supine position, after an adequate level of general anesthesia was induced, the patient's abdomen was prepped and draped in usual sterile fashion. Using a supraumbilical curvilinear incision, Dennis technique was used to insufflate abdominal cavity to 15 mm of CO2. Upper midline and right subcostal ports were placed under direct laparoscopic view, and the patient placed in reverse Trendelenburg position, and tilted to the left. Findings were as noted above. Common bile duct was identified and preserved throughout the procedure. Gallbladder was grasped using laparoscopic graspers and retracted superiorly and laterally. Soft omental and gastric adhesions were swept off the gallbladder, where the hilum was approached. Cystic artery and cystic duct were each identified, circumferentially skeletonized, traced directly into the gallbladder, and critical view obtained. Each was clipped proximally x2, distally x1, and transected.The gallbladder, which was moderately intrahepatic ,was then cauterized from the gallbladder fossa using Bovie. Specimen placed in an Endo-Catch bag, and retrieved through the umbilical port. Abdominal cavity was copiously irrigated and secured hemostasis. All ports removed under direct laparoscopic view. Wounds were closed in the following manner; umbilical wound had its fascia reapproximated using interrupted 0 Vicryl sutures. Skin wounds were closed using subcuticular 4-0 Vicryl sutures followed by Steri-Strips and sterile dressings. Wounds were infiltrated 0.5% Marcaine at completion. Sponge, needle, and instrument counts reported correct. Patient tolerated the procedure well and emerged from anesthesia stable condition. EBL minimal
[2024-12-29] MEDS: fentaNYL citrate/PF 100 MCG/2 ML VIAL 50 MCG IVPUSH (09:54)
[2024-12-29] MEDS: oxyCODONE HCl Immed Release 5 MG TABLET PO (10:15)
== END 2024-12-29 11:45 | disposition home or self-care (01) ==
PROVIDERS: Nurse Practitioner; PCP Hospitalist; Visit Provider Surgery
PROC: 0FT44ZZ Resection of Gallbladder, Percutaneous Endoscopic Approach (ICD-10-PCS; CPT 47562; principal; 2024-12-29 08:40)
DX: K80.10 Calculus of gallbladder with chronic cholecystitis without obstruction (principal); K82.8 Other specified diseases of gallbladder; Q44.1 Other congenital malformations of gallbladder; K21.9 Gastro-esophageal reflux disease without esophagitis; I10 Essential (primary) hypertension; E11.42 Type 2 diabetes mellitus with diabetic polyneuropathy; E11.65 Type 2 diabetes mellitus with hyperglycemia; D72.829 Elevated white blood cell count, unspecified; E55.9 Vitamin D deficiency, unspecified; J45.909 Unspecified asthma, uncomplicated; G43.109 Migraine with aura, not intractable, without status migrainosus; R00.2 Palpitations; F32.A Depression, unspecified; F41.9 Anxiety disorder, unspecified; Z79.82 Long term (current) use of aspirin; Z79.899 Other long term (current) drug therapy
CPT/HCPCS: 47562; 81025; 88304; J0131; J0690; J1100; J1885; J2003; J2250; J2405; J2704; J3010

== ENCOUNTER → 2024-12-29 06:28 | Outpatient (BNV) | payer OTHER, SELFPAY | PROVIDERS: PCP Hospitalist; Visit Provider Surgery | DX: K81.0 Acute cholecystitis (principal) | CPT/HCPCS: 47562 ==

== ENCOUNTER 2024-12-31 17:15 | Emergency (ER) | payer OTHER, SELFPAY ==
[2024-12-31 17:25] VITALS: BP 123/84; PULSE 80; O2SAT 97
[2024-12-31 17:31] VITALS: BP 150/83; PULSE 83; RESP 16; TEMP 37.6; O2SAT 97; BMI 33.3
--- NOTE | 2024-12-31 17:34 | ED_ITS ---
HPI - General Adult General Chief complaint: General Medical Stated complaint: fatigue weakness abd pain hx pt had cholecysectomy Time Seen by Provider: 12/31/24 17:31 Source: patient Mode of arrival: ambulatory Limitations: no limitations History of Present Illness ED Provider: HPI narrative: Patient with multiple complaints was seen here on 12/26 went to [facility] next day and was seen by surgeon on 12/29 and had cholecystectomy done now she comes here with not feeling good fatigue patient is taking hydrocodone for the pain and feel foggy no diarrhea patient did not move her bowels today vomited 1 time after surgery Related Data Home Medications ?Medication ?Instructions ?Recorded ?Confirmed albuterol sulfate 90 mcg/actuation 2 puff inhalation Q4-5H PRN 07/04/20 09/15/24 aerosol inhaler Shortness Of Breath amitriptyline 25 mg tablet 25 mg PO DAILY 07/04/20 09/15/24 fluticasone propionate 50 1 spray intranasal DAILY 07/04/20 09/15/24 mcg/actuation nasal spray,suspension (Flonase Allergy Relief) hydroxyzine HCl 25 mg tablet 25 mg PO BEDTIME 07/04/20 09/15/24 lisinopril 10 mg tablet 10 mg PO DAILY 07/04/20 09/15/24 quetiapine 25 mg tablet (Seroquel) 25 mg PO BEDTIME 07/04/20 09/15/24 zolpidem 10 mg tablet (Ambien) 10 mg PO BEDTIME PRN Insomnia 07/04/20 09/15/24 blood sugar diagnostic #10 ea 07/15/20 09/04/24 loratadine 10 mg tablet (Allergy 10 mg PO DAILY PRN Allergy Symptoms 12/16/20 09/15/24 Relief (loratadine)) meloxicam 7.5 mg tablet 7.5 mg PO DAILY 05/02/21 09/15/24 aspirin 81 mg tablet,delayed 81 mg PO DAILY 11/22/23 09/15/24 release calcium carbonate 500 mg PO BID 11/22/23 09/15/24 latanoprost 0.005 % eye drops 1 drp ophthalmic (eye) BEDTIME 11/22/23 09/15/24 metoprolol tartrate 25 mg tablet 12.5 mg PO BID 11/22/23 09/15/24 baclofen 10 mg tablet 10 mg PO BID 09/04/24 09/15/24 flash glucose scanning reader #1 ea 09/04/24 09/04/24 (FreeStyle Sal 2 Naalehu) gabapentin 300 mg capsule 300 mg PO TID 09/04/24 09/15/24 levonorgestrel 20.4 mcg/24 hr (up intrauterine 09/04/24 09/04/24 to 8 yrs) 52 mg intrauterine device (Liletta) benzonatate 100 mg capsule 100 mg PO TID cough 12/29/24 12/29/24 clindamycin HCl 300 mg capsule 300 mg PO TID 12/29/24 12/29/24 metoclopramide HCl 10 mg tablet mg 12/29/24 metoclopramide HCl 10 mg tablet mg 12/29/24 tramadol 50 mg tablet 50 mg PO Q6H PRN Pain 12/29/24 12/29/24 Previous Rx's ?Medication ?Instructions ?Recorded blood sugar diagnostic (FreeStyle 1 strip miscellaneous .qd 90 days 06/26/21 Lite Strips) #100 strips glucose 4 gram chewable tablet 12 g (3 x 4 gram) PO Q15M PRN 06/26/21 (Dex4 Glucose) hypoglycemia 90 days #60 tabs pen needle, diabetic 32 gauge x #150 ea 06/26/21 cholecalciferol (vitamin D3) 50 50 mcg PO DAILY #30 caps 10/09/21 mcg (2,000 unit) capsule pen needle, diabetic 32 gauge x #125 ea 01/01/22 (BD Ultra-Fine Che Pen Needle) insulin glargine 100 unit/mL (3 32 unit (0.32 mL) subcut QAM 90 02/12/22 mL) subcutaneous pen (Lantus days #28.8 mL Solostar U-100 Insulin) triamcinolone acetonide 0.5 % 1 appl topical BID apply to rash 03/20/22 topical cream on chest #15 grams flash glucose sensor (FreeStyle 1 ea topical Q2W 90 days #6 ea 04/28/22 Sal 14 Day Sensor kit) insulin lispro 100 unit/mL See Rx Instructions subcut TID #15 07/02/22 subcutaneous pen mL metformin 1,000 mg tablet 1,000 mg PO BID 30 days #60 tabs 08/25/22 tramadol 50 mg tablet 50 mg PO BID PRN pain #5 tabs 04/27/23 docusate sodium 100 mg capsule 200 mg (2 x 100 mg) PO BEDTIME 11/22/23 #180 caps alprazolam 0.5 mg tablet (Xanax) 0.5 mg PO BID PRN anxiety #20 tabs 11/30/23 simethicone 125 mg capsule (Gas 125 mg PO TID-QID PRN abdominal 12/22/23 Relief (simethicone)) distention #120 caps tranexamic acid 650 mg tablet 1,300 mg (2 x 650 mg) PO TID 5 01/31/24 days #30 tabs lorazepam 1 mg tablet (Ativan) 1 mg PO BID PRN anxiety #4 tabs 02/04/24 famotidine 40 mg tablet 40 mg PO BEDTIME #90 tabs 02/23/24 lansoprazole 30 mg capsule,delayed 30 mg PO DAILY #90 caps 02/23/24 release ferrous gluconate 324 mg (37.5 mg 324 mg PO BID #60 tabs 07/10/24 iron) tablet polyethylene glycol 3350 17 17 g PO DAILY #510 grams 07/10/24 gram/dose oral powder (Miralax) bisacodyl 5 mg tablet,delayed 10 mg (2 x 5 mg) PO BEDTIME #180 09/04/24 release (Dulcolax (bisacodyl)) tabs linaclotide 145 mcg capsule 145 mcg PO DAILY #30 caps 10/03/24 (Linzess) tramadol 50 mg tablet 50 mg PO Q6H PRN pain #20 tabs 12/27/24 hydrocodone 5 mg-acetaminophen 325 1 tab PO Q4-6H PRN pain #30 tabs 12/29/24 mg tablet alprazolam 0.5 mg tablet 0.5 mg PO BEDTIME PRN 12/31/24 anxiety/sleep #20 tabs Allergies Allergy/AdvReac Type Severity Reaction Status Date / Time No Known Allergies Allergy Verified 12/31/24 17:31 Review of Systems 2 Review of Systems: Yes all other systems are reviewed and are negative PMFSH Past Medical History Medical History GERD (gastroesophageal reflux disease) Acid indigestion Back pain Palpitations Leukocytosis Depression Anxiety Asthma Migraine Type 2 diabetes mellitus with polyneuropathy Type 2 diabetes mellitus with hyperglycemia, with long-term current use of insulin Essential hypertension Vitamin D insufficiency Surgical History History of esophagogastroduodenoscopy (EGD) H/O colonoscopy Hx of section Family History Family History Father Hypertension Diabetes Heart disease Mother Diabetes Heart disease Hypertension Social History Social History Household Members: Family and Children Are you a primary manager care management to a significant other at home: No Do you presently have visiting nurse or other home services: No Alcohol intake: current Alcohol intake frequency: does not drink Patient Tobacco Use Status: Never used Tobacco Smoked in Last 30 Days: No Second Hand Smoke Exposure: No Advance Directives: No Advance Directives Information Provided: Yes Patient : No Physical Exam ED Vital Signs: Vital Signs - 24 hr 12/31/24 17:31 12/31/24 18:02 12/31/24 19:01 Temperature 99.7 F 98.7 F 98.1 F Pulse Rate 83 72 63 Respiratory Rate 16 16 16 Blood Pressure 150/83 H 137/78 135/77 Pulse Oximetry 97 97 97 Oxygen Delivery Method Room Air Room Air Room Air 12/31/24 19:21 Temperature 98.1 F Pulse Rate 63 Respiratory Rate 16 Blood Pressure 135/77 Pulse Oximetry 97 Oxygen Delivery Method Room Air BMI result Body Mass Index 33.3 Appearance: Alert. Oriented X3. No acute distress. Anxious Eyes: No pallor or icterus ENT: Pharynx normal. Oral Mucosa moist Neck: Normal inspection. Neck supple. CVS: Normal heart rate and rhythm. Pulses normal. Respiratory: No respiratory distress. Equal air entry bilateral, no wheezing/rales/rhonchi Abdomen: Soft and mild tenderness at the surgical site Bowel sounds are present, no mass palpable, no CVA tenderness Skin: Skin warm and dry. Normal skin color. Normal skin turgor. Extremities: No lower extremity edema. No calf tenderness Neuro: Oriented X 3. No motor deficit. No sensory deficit.No cerebellar signs , cranial nerves II-XII intact Medications Administered Discontinued Medications Generic Name Dose Route Start Last Admin Trade Name Freq PRN Reason Stop Dose Admin Sodium Chloride 1,000 mls @ 999 mls/hr 12/31/24 17:36 12/31/24 17:48 Ns IV 12/31/24 18:36 999 mls/hr .Q1H1M ONE Administration Medical Decision Making Medical Decision Making [facility] Narrative: Patient with multiple nonspecific complaints taking hydrocodone likely the side effect of the also patient does have history of anxiety has not taken anxiety medication fairly wide maybe that is contributing to have will give alprazolam 0.5 mg every night used to take in the past Lab Data MDM Lab Attestation statement: I reviewed the patient's lab results. 12/31/24 17:45 12/31/24 17:45 Labs: Lab Results 12/31/24 Range/Units 17:45 WBC 11.8 H (4.8-10.8) X10*3/uL RBC 4.74 (4.20-5.50) X10*6/uL Hgb 13.0 (12.0-16.0) g/dl Hct 38.1 (37.0-47.0) % MCV 80.4 (80.0-98.0) fL MCH 27.4 (27.0-33.0) pg MCHC 34.1 (31.0-35.0) g/dl RDW 17.1 H (11.0-16.0) % Plt Count 350 D (160-400) X10*3/uL MPV 10.4 (9.4-12.3) fL Immature Gran % (Auto) 0.4 (0.0-0.4) % Neut % (Auto) 68.6 (45-73) % Lymph % (Auto) 23.0 (20-40) % Callaway % (Auto) 7.1 (2-11) % Eos % (Auto) 0.6 (0-4) % Baso % (Auto) 0.3 (0-2) % Lymph # (Auto) 2.7 (1.2-4.9) X10*3/uL Callaway # (Auto) 0.8 (0.1-1.2) X10*3/uL Eos # (Auto) 0.1 (0.0-0.4) X10*3/uL Baso # (Auto) 0.0 (0.0-0.2) X10*3/uL Abs Immat Gran (auto) 0.05 H (0.00-0.03) X10*3/uL Absolute Neuts (auto) 8.1 (2.0-8.3) x10*3/uL Absolute Nucleated RBC 0.000 (0.0-0.012) X10*3/uL Nucleated RBC % (auto) 0.0 (0.0-0.2) /100WBC Sodium 139 (135-145) mmol/L Potassium 3.9 (3.3-5.1) mmol/L Chloride 108 (96-108) mmol/L Carbon Dioxide 24 (22-29) mmol/L Anion Gap 11 L (12-20) BUN 8 L (9-16) mg/dL Creatinine 0.68 (0.5-1.4) mg/dL Estim Creat Clear Calc 102.4 Estimated GFR > 60 Random Glucose 178 H (60-115) mg/dL Calcium 9.4 (8.4-10.2) mg/dL Total Bilirubin 0.4 (0.0-1.0) mg/dL AST 31 (5-31) U/L ALT 28 (0-31) U/L Alkaline Phosphatase 68 (39-117) U/L Total Protein 7.7 (6.5-8.0) g/dL Albumin 4.0 (3.5-5.0) g/dL Lipase 28 (8-78) U/L Discharge Plan Discharge Clinical Impression: Anxiety GERD (gastroesophageal reflux disease) Qualifiers: Esophagitis presence: without esophagitis Qualified Code(s): K21.9 - Gastro- esophageal reflux disease without esophagitis Patient Disposition: Home, Self-Care Instructions: Gastroesophageal Reflux Disease (ED), Anxiety (ED) Additional Instructions: Continue take your medications as prescribed by your PCP and clinical research physician Alprazolam every night for sleep and and anxiety Prescriptions: New alprazolam 0.5 mg tablet 0.5 mg PO BEDTIME PRN (Reason: anxiety/sleep) Qty: 20 0RF No Action FreeStyle Lite Strips Strip 1 strip miscellaneous .qd 90 Days Qty: 100 10RF glucose [Dex4 Glucose] 4 gram tablet,chewable 12 g PO Q15M PRN (Reason: hypoglycemia) 90 Days Qty: 60 3RF Rx Instructions: until symptoms of low blood sugar are controlled (DME) pen needle, diabetic 32 gauge x 5/32 needle See Rx Instructions subcut .MEDSUPPLY Qty: 150 11RF Rx Instructions: Once a day cholecalciferol (vitamin D3) 50 mcg (2,000 unit) capsule 50 mcg PO DAILY Qty: 30 11RF Lantus Solostar U-100 Insulin 100 unit/mL (3 mL) insulin pen 32 unit subcut QAM 90 Days Qty: 28.8 1RF FreeStyle Sal 14 Day Sensor Kit 1 ea topical Q2W 90 Days Qty: 6 11RF insulin lispro 100 unit/mL insulin pen See Rx Instructions subcut TID Qty: 15 5RF Rx Instructions: 4 units before breakfast and dinner and 6 units before lunch subcut 3 times a day; 4 units before breakfast and dinner and 6 units before lunch subcut 3 times a day; subcutaneously 3 times a day; metformin 1,000 mg tablet 1,000 mg PO BID 30 Days Qty: 60 0RF Rx Instructions: FUTURE REFILLS FROM PCP. triamcinolone acetonide 0.5 % cream 1 appl topical BID Qty: 15 0RF clindamycin HCl 300 mg capsule 300 mg PO TID tramadol 50 mg Tablet 50 mg PO Q6H PRN (Reason: Pain) metoclopramide HCl 10 mg Tablet metoclopramide HCl 10 mg Tablet benzonatate 100 mg capsule 100 mg PO TID hydrocodone-acetaminophen 5-325 mg tablet 1 tab PO Q4-6H PRN (Reason: pain) Qty: 30 0RF Rx Instructions: Partial Fill upon patient request. tramadol 50 mg tablet 50 mg PO Q6H PRN (Reason: pain) Qty: 20 0RF tramadol 50 mg tablet 50 mg PO BID PRN (Reason: pain) Qty: 5 0RF alprazolam [Xanax] 0.5 mg tablet 0.5 mg PO BID PRN (Reason: anxiety) Qty: 20 0RF tranexamic acid 650 mg tablet 1,300 mg PO TID 5 Days Qty: 30 0RF lorazepam [Ativan] 1 mg tablet 1 mg PO BID PRN (Reason: anxiety) Qty: 4 0RF Rx Instructions: Please be aware that this medication can cause addiction/dependence polyethylene glycol 3350 [Miralax] 17 gram/dose powder 17 g PO DAILY Qty: 510 0RF ferrous gluconate 324 mg (37.5 mg iron) tablet 324 mg PO BID Qty: 60 0RF (DME) FreeStyle Precision Krunal Strips Strip See Rx Instructions .ROUTE DAILY Qty: 10 Rx Instructions: As directed meloxicam 7.5 mg tablet 7.5 mg PO DAILY hydroxyzine HCl 25 mg tablet 25 mg PO BEDTIME zolpidem [Ambien] 10 mg tablet 10 mg PO BEDTIME PRN (Reason: Insomnia) quetiapine [Seroquel] 25 mg tablet 25 mg PO BEDTIME fluticasone propionate [Flonase Allergy Relief] 50 mcg/actuation spray,suspension 1 spray intranasal DAILY Rx Instructions: administer into each nostril amitriptyline 25 mg tablet 25 mg PO DAILY lisinopril 10 mg tablet 10 mg PO DAILY albuterol sulfate 90 mcg/actuation HFA aerosol inhaler 2 puff inhalation Q4-5H PRN (Reason: Shortness Of Breath) loratadine [Allergy Relief (loratadine)] 10 mg tablet 10 mg PO DAILY PRN (Reason: Allergy Symptoms) (DME) pen needle, diabetic [BD Ultra-Fine Che Pen Needle] 32 gauge x 5/32 needle See Rx Instructions .ROUTE .MEDSUPPLY Qty: 125 6RF Rx Instructions: As directed four times a day lansoprazole 30 mg capsule,delayed release(DR/EC) 30 mg PO DAILY Qty: 90 3RF famotidine 40 mg tablet 40 mg PO BEDTIME Qty: 90 3RF aspirin 81 mg tablet,delayed release (DR/EC) 81 mg PO DAILY latanoprost 0.005 % drops 1 drp ophthalmic (eye) BEDTIME docusate sodium 100 mg capsule 200 mg PO BEDTIME Qty: 180 3RF metoprolol tartrate 25 mg tablet 12.5 mg PO BID calcium carbonate 500 mg calcium (1,250 mg) tablet,chewable 500 mg PO BID simethicone [Gas Relief (simethicone)] 125 mg capsule 125 mg PO TID-QID PRN (Reason: abdominal distention) Qty: 120 2RF Linzess 145 mcg capsule 145 mcg PO DAILY Qty: 30 2RF baclofen 10 mg tablet 10 mg PO BID gabapentin 300 mg capsule 300 mg PO TID (DME) FreeStyle Sal 2 Naalehu Misc See Rx Instructions .ROUTE .MEDSUPPLY Qty: 1 Rx Instructions: As directed Liletta 20.4 mcg/24 hr (8 yrs) 52 mg intrauterine device intrauterine bisacodyl [Dulcolax (bisacodyl)] 5 mg tablet,delayed release (DR/EC) 10 mg PO BEDTIME Qty: 180 4RF Interventions: ED Discharge Assessment Last Done: 12/31/24 19:21 Discharge Date/Time: 12/31/24 19:21 Print Language: Other
[2024-12-31] MEDS: 0.9 % Sodium Chloride 1,000 ML 999 ML IV (17:48)
[2024-12-31 17:49] LABS: MANUAL DIFF FLAG NO
[2024-12-31 18:02] VITALS: BP 137/78; PULSE 72; RESP 16; TEMP 37.1; O2SAT 97
[2024-12-31 18:03] LABS: Basophils Percent Auto 0.3 % (0-2); Eosinophils Absolute Auto 0.1 X10*3/uL (0.0-0.4); Eosinophils Percent Auto 0.6 % (0-4); Hematocrit 38.1 % (37.0-47.0); Imm Gran Abs Auto 0.05 X10*3/uL (0.00-0.03); Imm Gran Pct Auto 0.4 % (0.0-0.4); Lymphocytes Absolute Auto 2.7 X10*3/uL (1.2-4.9); Mean Corpuscular HGB Conc 34.1 g/dl (31.0-35.0); Mean Corpuscular Hemoglobin 27.4 pg (27.0-33.0); Mean Corpuscular Volume 80.4 fL (80.0-98.0); Mean Platelet Volume 10.4 fL (9.4-12.3); Monocytes Absolute Auto 0.8 X10*3/uL (0.1-1.2); Monocytes Percent Auto 7.1 % (2-11); Neutrophils Absolute Auto 8.1 x10*3/uL (2.0-8.3); Neutrophils Percent Auto 68.6 % (45-73); Platelet Count 350 X10*3/uL (160-400); Red Blood Count 4.74 X10*6/uL (4.20-5.50); Red Cell Distribution Width 17.1 % (11.0-16.0); White Blood Count 11.8 X10*3/uL (4.8-10.8)
[2024-12-31 18:08] LABS: Alanine Aminotransferase 28 U/L (0-31); Alkaline Phosphatase 68 U/L (39-117); Anion Gap 11 (12-20); Aspartate Amino Transferase 31 U/L (5-31); Bilirubin Total 0.4 mg/dL (0.0-1.0); Blood Urea Nitrogen 8 mg/dL (9-16); Calcium 9.4 mg/dL (8.4-10.2); Carbon Dioxide 24 mmol/L (22-29); Chloride 108 mmol/L (96-108); Creatinine Clr Calc Pharmacy 102.4; Estimated Glomerular Filt Rate > 60; Glucose Random 178 mg/dL (60-115); Lipase 28 U/L (8-78); Potassium 3.9 mmol/L (3.3-5.1); Sodium 139 mmol/L (135-145); Total Protein 7.7 g/dL (6.5-8.0)
[2024-12-31 19:01] VITALS: BP 135/77; PULSE 63; RESP 16; TEMP 36.7; O2SAT 97
--- OUTSIDE RECORDS SUMMARY | 2024-12-31 19:10 | XMS_ITS | Clinical Summary ---
Author Organization [facility] Address [address] [place] [address] Phone Care Team Providers Care Marketing Support Assistant Name Role Phone Yarely Mojica MD Primary Care Provider [phone] Allergies No known active allergies Medications aspirin 81 mg EC tablet Take 81 mg by mouth. 2 Active gabapentin (NEURONTIN) 300 mg capsule Take 300 mg by mouth. 2 Active hydrOXYzine HCL (ATARAX) 25 mg tablet Take 25 mg by mouth. 8 Active insulin glargine (LANTUS) 100 unit/mL injection Inject into the skin. 8 Active ketorolac (TORADOL) 60 mg/2 mL syringe 2 mL by Other route Once for 1 dose. 4 Active lisinopriL (PRINIVIL,ZESTR IL) 10 mg tablet Take 10 mg by mouth. 2 Active metFORMIN (GLUCOPHAGE) 500 mg tablet Take 500 mg by mouth. 8 Active QUEtiapine (SEROquel) 25 mg tablet Take 25 mg by mouth. 8 Active zolpidem (AMBIEN) 10 mg tablet Take 10 mg by mouth. 8 Active baclofen (LIORESAL) 10 mg tablet take 1 tablet by mouth twice a day as needed for 30 days 4 Active Laxative, bisacodyl, 5 mg EC tablet Take 2 tablets (10 mg total) by mouth. at bedtime 4 Active glipiZIDE (GLUCOTROL XL) 5 mg 24 hr tablet 1 TABLET BY MOUTH DAILY,INSTR: BREAKFAST 5 Active Active Problems Problem Noted Date Diagnosed Date Trigger ring finger of right hand 05/04/2023 Nodule of skin of hand 08/26/2022 Abnormal gait 04/08/2022 Backache 04/08/2022 Class 2 obesity 04/08/2022 Diabetic neuropathy 04/08/2022 Essential hypertension 04/08/2022 Gastro-esophageal reflux disease without esophag itis 04/08/2022 Generalized anxiety disorder 04/08/2022 Insomnia 04/08/2022 Iron deficiency anemia 04/08/2022 Moderate recurrent major depression 04/08/2022 Osteoarthrosis 04/08/2022 Transient ischemic attack 04/08/2022 Post-traumatic stress disorder 04/08/2022 Severe obesity (BMI >= 40) 04/08/2022 Overview (08/17/2024): Body mass index (BMI) greater than 40 Encounters Date Type Department Care Team Description 10/31/2024 2:00 PM EST - 10/31/2024 11:59 PM EST Hospital Encounter [facility] [address] [place] [phone] Chi Barrow MD Iron deficiency anemia due to chronic blood loss (Primary Dx) Discharge Disposition: Home or Self Care 10/23/2024 2:00 PM EST - 10/23/2024 11:59 PM EST Hospital Encounter [facility] [address] [place] [phone] Chi Barrow MD Iron deficiency anemia due to chronic blood loss (Primary Dx) Discharge Disposition: Home or Self Care 10/16/2024 10:30 AM EST Office Visit [facility] Hematology Oncology [address] [place] [phone] Chi Barrow MD Iron deficiency anemia due to chronic blood loss (Primary Dx) from Last 3 Months Surgical History Surgery Date Site/Laterality Comments SECTION PROCEDURE: HISTORICAL Medical History Medical History Date Comments Diabetes mellitus type 2, co ntrolled, with complications (CMS/HCC) DX:Diabetes mellitus type 2, controlled, with complications (HCC) Essential hypertension DX:Essent ial hypertension Anxiety state DX:Anxiety state Asthma DX:Asthma Social History Tobacco Use Types Packs/Day Years [...] Orientation Straight 10/23/2024 2: 07 PM EST Obstetrics History Last Filed Vital Signs Vital Sign Reading Time Taken Comments Blood Pressure 135/81 10/31/2024 3:20 PM EST Pulse 85 10/31/2024 3:20 PM EST Temperature 36.7 ??C (98 ??F) 10/31/2024 3:04 PM EST Respiratory Rate 18 10/31/2024 3:20 PM EST Oxygen Saturation 100% 10/31/2024 3:04 PM EST Inhaled Oxygen Concentration - - Weight 86.2 kg (190 lb) 10/16/2024 10:40 AM EST Height 160 cm (5' 2.99 ) 09/15/2024 9:37 AM EST Body Mass Index 33.67 09/15/2024 9:37 AM EST Plan of Treatment Health Maintenance Due Date Last Done Comments Diabetes: Annual GFR (Glomer ular Filtration Rate) 1974 Diabetes: Annual Foot Exam 1984 Diabetes: Annual Retina Eye Exam 1984 DTaP,Tdap,and Td Vaccines (1 - Tdap) 1993 Hepatitis B Vaccines (1 of 3 - 19+ 3-dose series) 1993 Pneumococcal Vaccine: 50+ Ye ars (1 of 2 - PCV) 1993 Pneumococcal Vaccine: Pediat rics (0 to 5 Years) and At-Risk Patients (6 to 64 Years) (1 of 2 - PCV) 1993 Cervical Cancer Screening: P ap Smear 1995 Cholesterol Screening (Lipid Panel) 09/05/2022 Colorectal Cancer Screening: Colonoscopy 09/05/2022 Depression Screening 09/05/2022 HIV Screening 09/05/2022 Hepatitis C Screening 09/05/2022 Social Influencers of Health Screening 09/05/2022 Diabetes: Annual Urine Albumin-Creatinine Ratio (uACR) 09/12/2022 02/01/2019 Diabetes: Blood Sugar Contro l Test (HGBA1C) 09/12/2022 Hypertension/CHF/CAD Annual BMP Blood Test 09/12/2022 Zoster Vaccines (1 of 2) 2024 Breast Cancer Screening 05/07/2024 05/07/2022 COVID-19 Vaccine ( - 2023-2 5 season) 2024 Influenza Vaccine (#1) 2024 HIB Vaccines Aged Out No longer eligi ble based on patient's age to complete this topic HPV Vaccines Aged Out No longer eligi ble based on patient's age to complete this topic Hepatitis A Vaccines Aged Out No long er eligible based on patient's age to complete this topic IPV Vaccines Aged Out No longer eligi ble based on patient's age to complete this topic MMR Vaccines Aged Out No longer eligi ble based on patient's age to complete this topic Meningococcal ACWY Vaccine Aged Out N o longer eligible based on patient's age to complete this topic Meningococcal B Vacine Aged Out No lo nger eligible based on patient's age to complete this topic RSV Immunization Patients Un christal 20 months Aged Out No longer eligible b ased on patient's age to complete this topic Varicella Vaccines Aged Out No longer eligible based on patient's age to complete this topic Procedures Procedure Name Priority Date/Time Associated Diagnosis Comments [facility] Routine 05/07/2022 8:06 AM EDT Encounter for screening mammogram for malignant neoplasm of breast from Last 3 Months or Most Recently Relevant to Health Maintenance Results * [facility] (05/07/2022 8:06 AM EDT) Anatomical Region Laterality Modality Mammography 05/04/2022 2:48 PM EDT Narrative 05/07/2022 8:06 AM EDT [facility] Diagnostic Imaging Department [address] [place] [id number] Patient: ??ELIGIO,ELE ?/Age/Sex: 1975 - 47 - F Unit#: ??[id number] ? Location/Status: ??SPDIMAM/REG CLI ? Mnemonic/Ordering Site: ??DIGSC/SPMAM Ordering Physician: ??YARELY MOJICA MD [facility] Screening Digital - 05/04/22 - 1523 EXAM: [facility] Screening Digital EXAM DATE AND TIME: 05/04/2022 3:24 PM HISTORY: ??Screening. COMPARISON: ??05/03/14 outside study TECHNIQUE: CC and MLO views of both breasts were obtained using full field digital mammography. Bilateral digital breast tomosynthesis was performed in the MLO projection. Computer aided detection with the Direct Sitters 7.2-H was employed. TISSUE DENSITY: c. The breasts are heterogeneously dense, which may obscure small masses. FINDINGS: There is significant motion artifact on the left MLO view, requiring a repeat image. The patient will be called back and this will be performed at no additional charge. No suspicious masses, grouped microcalcifications, or areas of architectural distortion are seen. Vascular calcification is present. The skin is unremarkable. IMPRESSION: 1. Motion artifact on the left MLO view, requiring a repeat image. The patient will be called back. 2. Stable mammographic appearance of the right breast. No evidence of malignancy is seen. BI-RADS: ??Category 0: Incomplete - Need Additional Imaging Evaluation (technical recall) RECOMMENDATION(S): 1: Repeat film(s) needed LEFT 04306, [id number] 3340F, 7025F Dictating Physician: ??ELIAN HERNANDEZ MD Electronically Signed by: ??ELIAN HERNANDEZ MD Dic Date/Time: ??05/07/22803 Sign date/Time: ??05/07/22 0806 Procedure Note Elian Hernandez MD - 09/16/2022 [facility] Diagnostic Imaging Department [address] [place] [id number] Patient: ELIGIOELE /Age/Sex: 1975 - 47 - F Unit#: [id number] [facility]Ordering [facility] Ordering Physician: YARELY MOJICA MD [facility] Screening Digital - 05/04/22 - 1523 EXAM: [facility] Screening Digital EXAM DATE AND TIME: 05/04/2022 3:24 PM HISTORY: Screening. COMPARISON: 05/03/14 outside study TECHNIQUE: CC and MLO views of both breasts were obtained using fullfield digital mammography. Bilateral digital breast tomosynthesis was performedin the MLO projection. Computer aided detection with the Direct Sitters 7.2-Hwas employed. TISSUE DENSITY: c. The breasts are heterogeneously dense, which mayobscure small masses. FINDINGS: There is significant motion artifact on the left MLO view, requiring arepeat image. The patient will be called back and this will be performed at no additional charge. No suspicious masses, grouped microcalcifications, or areas ofarchitectural distortion are seen. Vascular calcification is present. The skin is unremarkable. IMPRESSION: 1. Motion artifact on the left MLO view, requiring a repeat image. Thepatient will be called back. 2. Stable mammographic appearance of the right breast. No evidence of malignancy is seen. BI-RADS: Category 0: Incomplete - Need Additional Imaging Evaluation (technical recall) RECOMMENDATION(S): 1: Repeat film(s) needed LEFT 53324, [id number] 3340F, 7025F Dictating Physician: ELIAN HERNANDEZ MD Electronically Signed by: ELIAN HERNANDEZ MD Dic Date/Time: 05/07/22803 Sign date/Time: 05/07/22805 Yarely Mojica MD IMG BI PROCEDURES Final Result from Last 3 Months or Most Recently Relevant to Health Maintenance Insurance [facility] [email or web address] [address] Care Teams Marketing Support Assistant Relationship Specialty Start Date End Date Yarely Mojica MD [address] [place] [phone] PCP - General Internal Medicine 03/05/22
--- OUTSIDE RECORDS SUMMARY | 2024-12-31 19:10 | XMS_ITS | Clinical Summary ---
Author Organization [facility] Address [address] [place] [address] Care Team Providers Care Burr Grinder Name Role Phone Unavailable Primary Care Provider [...] complication, with long-term current use of insulin ([facility]) Take 1,000 mg by mouth 2 (two) times daily Per Endo 1 7 Active ADITYA PEN NEEDLE 32 gauge x 32 ndleIndications:T ype 2 diabetes mellitus without complication, with long-term current use of insulin ([facility]) Per Endo 0 7 Active ONGLYZA 5 mg tabletIndications :Type 2 diabetes mellitus without complication, with long-term current use of insulin ([facility]) Take by mouth once daily Per Endo 0 7 Active insulin glargine (LANTUS) 100 unit/mL injectionIndicati ons:Type 2 diabetes mellitus without complication, with long-term current use of insulin ([facility]) Per Endo 10 mL 7 Active canagliflozin (INVOKANA) 100 mg tabIndications:Ty pe 2 diabetes mellitus without complication, with long-term current use of insulin ([facility]) Take by mouth 7 Active betamethasone dipropionate [...] mcg/actuation inhalerIndication s:Mild intermittent asthma without complication ([facility]) Inhale 2 Puffs into the lungs every [...] 11/05/2018 Overview (07/02/2019): 09/29/18 - Seen at [facility] c/o left sided chest pain x [...] (01/25/2017): Due to menorrhagia Mild intermittent asthma ([facility]) 01/25/2017 Type 2 diabetes mellitus without complication Overview (06/26/2019): F/U [facility] Endo 03/25/18 - Endo F/U. HgA1c 8.8%. [...] Diagnosed Date Resolved Date Diabetic eye exam ([facility]) 11/17/2016 08/03/2018 Overview (11/17/2016): Per pt, follow [...] Plan of Treatment Not on file Insurance [facility] [place] [employer] [facility]
--- OUTSIDE RECORDS SUMMARY | 2024-12-31 19:10 | XMS_ITS | Clinical Summary ---
Author Organization [facility] Address [address] [place] [address] Phone Care Team Providers Care International Trade Manager Name Role Phone Yarely Rondon MD Primary Care Provider [phone] Allergies No known active allergies Medications aspirin [...] Visit [facility] [address] [address] Catalino Younger MD [address] [address] Health Maintenance Due Date Last Done Comments [...] Diabetes: Visual Foot Exam 09/06/2023 Influenza Vaccine (Season Ended) [address] [place] [address] Care Teams International Trade Manager Relationship Specialty Start Date End Date Yarely Rondon MD [address] [place] [address] PCP - General Internal Medicine 04/07/23
--- OUTSIDE RECORDS SUMMARY | 2024-12-31 19:10 | XMS_ITS ---
Author Organization [id number] Address [address] 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 Mojica, will bring daughter Medications Medication SIG (Take, Route, Frequency, Duration) Notes Start Date End Date Status Ambien 10 MG 1 tablet at bedtime as needed Orally Once a day Active hydrOXYzine HCl 25 MG 1 tablet as needed Orally every 8 hrs Active SEROquel 25 MG 1 tablet at bedtime Orally Once a day Active Metoprolol Tartrate 25 MG 0.5 tablet wit h food Orally Twice a day for 30 day(s) Active Abilify 10 MG 1 tablet Orally Once a day Active glipiZIDE 5 MG 1 tablet 30 minutes before breakfast Orally Once a day 11/03/2024 Active Farxiga 10 MG 1/2 tab Orally Once a day Active Laxative 5 MG 1 tablet as needed Orally Once a day Active Calcium Carbonate 1250 (500 Ca) MG 1 tablet with food Orally Twice a day Active Amitriptyline HCl 25 MG 1 tablet at bedt david Orally Once a day for 30 day(s) Active tiZANidine HCl 2 MG 1 tablet as needed Orally Three times a day for 7 days 08/04/2023 Not-Taking tiZANidine HCl 4 MG 1 tablet as needed Orally Three times a day for 7 days 05/06/2022 Not-Taking traMADol HCl 50 MG 1 tablet as needed Orally Once a day for 14 days 08/04/2023 Not-Taking Bactrim DS 800-160 MG 1 tablet Orally Tw ice a day for 3 days 11/04/2023 Not-Taking Albuterol Sulfate HFA 108 (90 Base) MCG/ACT 1 puff as needed Inhalation every 4 hrs for 30 days 12/25/2024 Active Omeprazole 40 MG 1 capsule 30 minutes before morning meal Orally Once a day for 30 days Not-Taking metFORMIN HCl 1000 MG TAKE 1 TABLET BY M OUTH TWICE A DAY WITH MEALS for 90 Active Diflucan 150 MG 1 tablet Orally once for 1 days 11/04/2023 Not-Taking traMADol HCl 50 MG 1 tablet as needed Orally Once a day for 14 days 07/14/2024 Not-Taking Vicodin 5-300 MG 1 tablet as needed Orally every 6 hrs Not-Taking Glucose 4 GM as directed Orally 3 0 for 30 days 10/13/2024 Active FreeStyle Sal 2 Dennis - as directed Active BD Pen Needle Che U/F 32G X 4 MM Check blood sugar three times a day DX: E11.9 for 30 days Active Gabapentin 300 MG TAKE 1 CAPSULE BY MO [facility] THREE TIMES A DAY for 30 Active HumaLOG KwikPen 100 UNIT/ML Sliding scale; DX: E11.9 Subcutaneous before meals for 30 days Active Lansoprazole 30 MG 1 capsule before a m eal Orally Once a day for 30 days 08/15/2024 Active FreeStyle Sal 2 Sensor - Take as DIRECTED TRANSDERMAL CHANGE EVERY 14 DAYS 30 DAYS for 30 days Active Baclofen 10 MG 1 tablet as needed Orally Twice a day for 30 days Active Lisinopril 10 MG TAKE 1 TABLET BY GLORIA EVERY DAY FOR 90 DAYS for 90 Active Ferrous Gluconate 324 (38 Fe) MG TAKE 1 TABLET BY MOUTH EVERY DAY WITH WATER OR JUICE BETWEEN MEALS for 90 Active Vitamin D3 50 MCG (2000 UT) 1 capsule Orally Once a day for 90 days Active Aspirin Low Dose 81 MG TAKE 1 TABLET BY MOUTH EVERY DAY FOR 90 DAYS for 90 Active FLUoxetine HCl 40 MG TAKE 1 CAPSULE BY M OUTH EVERY DAY FOR 30 DAYS for 30 Active Lantus SoloStar 100 UNIT/ML 25 unit Subcutaneous once a day for 30 days Active Famotidine 40 MG 1 tablet Orally Once a day for 30 days 08/15/2024 Active Prazosin HCl 1 MG 1 capsule at bedtime Orally Once a day for 30 days Active ProAir HFA 108 (90 Base) MCG/ACT INHALE 2 PUFFS BY MOUTH EVERY 6 HOURS NEEDED for 25 Active Belfast 3 1000 MG 3 capsules Orally On ce a day for 30 days 08/13/2023 Active Albuterol Sulfate HFA 108 (90 Base) MCG/ACT INHALE 2 PUFFS BY MOUTH NEEDED EVERY 6 HOURS. for 25 Active FreeStyle Lancets - as directed for 30 days Active Nitrostat 0.4 MG as directed Sublingual Active FreeStyle Lite Test - as directed In Vitro Active Fish Oil 1000 MG 1 capsule Orally Onc e a day Active Nabumetone 500 MG 1 tablet Orally Twic e a day for 30 day(s) 05/21/2020 Active Nuedexta 20-10 MG 1 capsule Orally Twi ce a day Active Vital Signs Temperature 97.7 degrees Fahrenheit 12/26/19 25 Oximetry 98 % 12/25/2024 Heart Rate 88 /min 12/25/2024 Blood pressure systolic 110 mm Hg 12/26/19 25 Blood pressure diastolic 82 mm Hg 025 Weight 191.4 lbs 12/25/2024 BMI 32.85 kg/m2 12/25/2024 Height 64 in 12/25/2024 Encounters Encounter Location Date Provider Diagnosis [facility] [address] [address] 12/25/2024 ALBERT MOJICA Cough, unspecified R05.9 and Pain in right knee M25.561 Assessments Encounter Date Diagnosis (ICD Code) Assessment Notes Treatment Notes Treatment Clinical Notes Section Notes 12/25/2024 Cough, unspecified (ICD-10 - R05.9) Mrs. Marlow is a 49-year-old female Ukrainian-speaking patient with type 2 diabetes mellitus anxiety, depression, history of H pylori is here for follow-up. She states that recently was seen by Dr. Jones for iron transfusion. She complains of right knee joint pain and cough. Plan is as follows Cough. Most likely viral. She has upcoming cholecystectomy at [facility]. We will do chest x-ray to rule out any underlying pathology.meanwhil e she can continue Tessalon Perles and appropriate hydration. Pain right knee joint. Osteoarthritis, tendinitis. Will do x-ray and continue ibuprofen along with Tylenol and recommended weight loss. once we have the results of the x-ray we will decide on further disposition 12/25/2024 Pain in right knee (ICD-10 - M25.561) Mrs. Marlow is a 49-year-old female Ukrainian-speaking patient with type 2 diabetes mellitus anxiety, depression, history of H pylori is here for follow-up. She states that recently was seen by Dr. Jones for iron transfusion. She complains of right knee joint pain and cough. Plan is as follows Cough. Most likely viral. She has upcoming cholecystectomy at [facility]. We will do chest x-ray to rule out any underlying pathology.meanwhil e she can continue Tessalon Perles and appropriate hydration. Pain right knee joint. Osteoarthritis, tendinitis. Will do x-ray and continue ibuprofen along with Tylenol and recommended weight loss. once we have the results of the x-ray we will decide on further disposition Plan Of Treatment Medication Medication Name Sig Start Date Stop Date Notes Albuterol Sulfate HFA 108 (9 0 Base) MCG/ACT 1 puff as needed Inhalation every 4 hrs for 30 days 12/25/2024 Pending Test Test Name Order Date Chest X-ray PA and lateral 12/25/2024 Xray: Knee Right (Standard, 4 Views) Next Appt Details Follow Up: 6 Months, Reason: Provider Name:Eladio Gayle nerissa, 01/11/2025 11:00:00 AM, [address] [place] [address], [phone], Provider Name:Eladio Gayle nerissa, 03/14/2025 11:00:00 AM, [address] [place] [address], [phone], Progress Notes * ELIGIO EleDOB:1975 ( 49 yo F)Acc No.[id number]:12/25/2024 Patient:?Ele DEL VALLE Provider:?ALBERT MOJICA MD :1975???Age:49 Y???Sex:Female D ate:12/25/2024 Address:[address] [place] [address] Subjective: * Chief Complaints: * ???R knee pain/Pt req Dr. Aaron gilmore, will bring daughter * HPI: ???Internal Medicine:? Mrs. Marlow is a 49-year-old female Ukrainian-speaking patient with type 2 diabetes mellitus anxiety, depression, history of H pylori is here for follow- up. She states that recently was seen by Dr. Jones for iron transfusion. She currently saw his dentist and she is having infection and she is on clindamycin along with ibuprofen for pain.? She is also coughing with no fever or chills and she is on Tessalon Perles.? She is going to have gallbladder surgery at [facility] and she is concerned of cough.? She also complained of pain in the right knee joint and she has difficulty in flexion and extension.? No history of injury or trauma. Per record review, she currently has IUD. Her recent Hgb was 11.5, HCT 39.5, MCV 75. She was on iron supplements, but she could not tolerate it, thus heme/onc decided on Iron infusion with Feraheme 510. Initially she was able to tolerate it but during her second session she developed abdominal pain with body weakness, however after discontinuing the infusion her sxs improved. Now she is back on taking the iron supplements. She also states that she recently had EGD/c-scope which it was remarkable for inactive gastritis negative for esophagitis and hpylori. Internal hemorrhoids were noted. She has a repeat C-scope in 6-12 months due to poor prep. Patient is to start taking Dulcolax daily and to continue on Lansoprazole and famotidine, also to follow FODMAP diet. In addition, she has elective cholecystectomy coming up. She is also currently seeing microsystems engineer for T2DM and was started on glipizide. Off note, she states that she has not been seeing Dr. Meade due to change in insurance and would like to be referred to a new provider. She denies any other active issues. * ROS:?General/Constitutional:?Overall health?Good.?Change in appetite?denies.?Chills?denies.?Fatigue?admits, that is constan.?Fever?denies.?Night sweats?denies.?Sleep disturbance?denies.?Weight gain?denies.?Weight loss?denies.?Neurologic:?Difficulty speaking?denies.?Dizziness?denies.?Gait abnormality?denies.?Headache?denies.?Loss of strength?denies.?Memory loss?denies.?Seizures?denies.?Tingling/Numbness?denies .?Ophthalmologic:?Blurred vision?denies.?Discharge?denies.?Dry eye?denies.?Red eye?denies.?ENT:?Change in Voice?Denies.?Cold Symptoms?Denies.?Cough?,Admits.?Dizziness?Denies.?Nasal Congestion?Denies.?Otalgia?Denies.?postnasal drip?Denies.?Blocked ear?denies.?Nosebleed?denies.?Snoring?denies.?Cardiovascular:?Diaphoresis?Denies.?Pedal Edema?Denies.?PND (Paroxsymal nocturnal dyspnea)?Denies.?Chest pain?denies.?Difficulty laying flat?denies.?Dyspnea on exertion?denies.?Heart murmur?denies.?Orthopnea?denies.?Respiratory:?Snoring?denies.?Asthma?denies.?Cough?denies.?Shortness of breath with exertion?denies.?Sputum production?denies.?Wheezing?denies.?Gastrointestinal:?Abdominal pain?admits.?Change in bowel habits?denies.?Constipation?admits.?Decreased appetite?denies.?Diarrhea?denies.?Heartburn?denies.?Nausea?denies.?Vomiting?doug es.?Musculoskeletal:?tingling/numbness?Denies.?myalgias?Denies.?Joint Swelling?Denies.?extremeties?normal.?Arthritis?,admits.?Back problems?denies.?Carpal tunnel?denies.?Joint stiffness?denies.?Muscle aches?denies.?Endocrine:?Bowel Changes?Denies.?Breast Discharge?Denies.?poor libido?Denies.?Cold intolerance?denies.?Excessive sweating?denies.?Excessive thirst?denies.?Frequent urination?denies.?Thyroid problems?denies.?Skin:?Bruising?Denies.?Eczema?denies.?Hair changes?denies.?Rash?denies.?Skin lesion(s)?denies.?Psychiatric:?Anxiety?denies.?Depressed mood?denies.?Difficulty sleeping?denies.?Nervous breakdown?denies.?Substance abuse?denies.?Urology:?abnormal menstrual bleeding?admits.?blood in urine?denies.?burning on urination?denies.?difficulty urinating?denies.?discharge?denies.?dysuria?denies.? * Medical History:? * Medications:?TakingglipiZIDE 5 MG Tablet 1 tablet 30 minutes before breakfast Orally Once a day Laxative 5 MG Tablet Delayed Release 1 tablet as needed Orally Once a day Farxiga 10 MG Tablet 1/2 tab Orally Once a day Amitriptyline HCl 25 MG Tablet 1 tablet at bedtime Orally Once a day Calcium Carbonate 1250 (500 Ca) MG Tablet 1 tablet with food Orally Twice a day Abilify 10 MG Tablet 1 tablet Orally Once a day Metoprolol Tartrate 25 MG Tablet 0.5 tablet with food Orally Twice a day hydrOXYzine HCl 25 MG Tablet 1 tablet as needed Orally every 8 hrs Ambien 10 MG Tablet 1 tablet at bedtime as needed Orally Once a day SEROquel 25 MG Tablet 1 tablet at bedtime Orally Once a day Nitrostat 0.4 MG Tablet Sublingual as directed Sublingual Fish Oil 1000 MG Capsule 1 capsule Orally Once a day FreeStyle Lite Test - Strip as directed In Vitro Nuedexta 20-10 MG Capsule 1 capsule Orally Twice a day Nabumetone 500 MG Tablet 1 tablet Orally Twice a day ProAir HFA 108 (90 Base) MCG/ACT Aerosol Solution INHALE 2 PUFFS BY MOUTH EVERY 6 HOURS NEEDED Prazosin HCl 1 MG Capsule 1 capsule at bedtime Orally Once a day Albuterol Sulfate HFA 108 (90 Base) MCG/ACT Aerosol Solution INHALE 2 PUFFS BY MOUTH NEEDED EVERY 6 HOURS. Belfast 3 1000 MG Capsule 3 capsules Orally Once a day FreeStyle Lancets - Miscellaneous as directed Aspirin Low Dose 81 MG Tablet Delayed Release TAKE 1 TABLET BY MOUTH EVERY DAY FOR 90 DAYS Vitamin D3 50 MCG (2000 UT) Capsule 1 capsule Orally Once a day Lantus SoloStar 100 UNIT/ML Solution Pen-injector 25 unit Subcutaneous once a day FLUoxetine HCl 40 MG Capsule TAKE 1 CAPSULE BY MOUTH EVERY DAY FOR 30 DAYS Famotidine 40 MG Tablet 1 tablet Orally Once a day Lansoprazole 30 MG Capsule Delayed Release 1 capsule before a meal Orally Once a day Baclofen 10 MG Tablet 1 tablet as needed Orally Twice a day FreeStyle Sal 2 Sensor - Miscellaneous Take as DIRECTED TRANSDERMAL CHANGE EVERY 14 DAYS 30 DAYS Ferrous Gluconate 324 (38 Fe) MG Tablet TAKE 1 TABLET BY MOUTH EVERY DAY WITH WATER OR JUICE BETWEEN MEALS Lisinopril 10 MG Tablet TAKE 1 TABLET BY MOUTH EVERY DAY FOR 90 DAYS Glucose 4 GM Tablet Chewable as directed Orally 30 BD Pen Needle Che U/F 32G X 4 MM Miscellaneous Check blood sugar three times a day DX: E11.9 FreeStyle Sal 2 Dennis - Device as directed HumaLOG KwikPen 100 UNIT/ML Solution Pen-injector Sliding scale; DX: E11.9 Subcutaneous before meals Gabapentin 300 MG Capsule TAKE 1 CAPSULE BY MOUTH THREE TIMES A DAY metFORMIN HCl 1000 MG Tablet TAKE 1 TABLET BY MOUTH TWICE A DAY WITH MEALS Taking glipiZIDE 5 MG Tablet 1 tablet 30 minutes before breakfast Orally Once a day Taking Laxative 5 MG Tablet Delayed Release 1 tablet as needed Orally Once a day Taking Farxiga 10 MG Tablet 1/2 tab Orally Once a day Taking Amitriptyline HCl 25 MG Tablet 1 tablet at bedtime Orally Once a day Taking Calcium Carbonate 1250 (500 Ca) MG Tablet 1 tablet with food Orally Twice a day Taking Abilify 10 MG Tablet 1 tablet Orally Once a day Taking Metoprolol Tartrate 25 MG Tablet 0.5 tablet with food Orally Twice a day Taking hydrOXYzine HCl 25 MG Tablet 1 tablet as needed Orally every 8 hrs Taking Ambien 10 MG Tablet 1 tablet at bedtime as needed Orally Once a day Taking SEROquel 25 MG Tablet 1 tablet at bedtime Orally Once a day Taking Nitrostat 0.4 MG Tablet Sublingual as directed Sublingual Taking Fish Oil 1000 MG Capsule 1 capsule Orally Once a day Taking FreeStyle Lite Test - Strip as directed In Vitro Taking Nuedexta 20-10 MG Capsule 1 capsule Orally Twice a day Taking Nabumetone 500 MG Tablet 1 tablet Orally Twice a day Taking ProAir HFA 108 (90 Base) MCG/ACT Aerosol Solution INHALE 2 PUFFS BY MOUTH EVERY 6 HOURS NEEDED Taking Prazosin HCl 1 MG Capsule 1 capsule at bedtime Orally Once a day Taking Albuterol Sulfate HFA 108 (90 Base) MCG/ACT Aerosol Solution INHALE 2 PUFFS BY MOUTH NEEDED EVERY 6 HOURS. Taking Belfast 3 1000 MG Capsule 3 capsules Orally Once a day Taking FreeStyle Lancets - Miscellaneous as directed Taking Aspirin Low Dose 81 MG Tablet Delayed Release TAKE 1 TABLET BY MOUTH EVERY DAY FOR 90 DAYS Taking Vitamin D3 50 MCG (2000 UT) Capsule 1 capsule Orally Once a day Taking Lantus SoloStar 100 UNIT/ML Solution Pen-injector 25 unit Subcutaneous once a day Taking FLUoxetine HCl 40 MG Capsule TAKE 1 CAPSULE BY MOUTH EVERY DAY FOR 30 DAYS Taking Famotidine 40 MG Tablet 1 tablet Orally Once a day Taking Lansoprazole 30 MG Capsule Delayed Release 1 capsule before a meal Orally Once a day Taking Baclofen 10 MG Tablet 1 tablet as needed Orally Twice a day Taking FreeStyle Sal 2 Sensor - Miscellaneous Take as DIRECTED TRANSDERMAL CHANGE EVERY 14 DAYS 30 DAYS Taking Ferrous Gluconate 324 (38 Fe) MG Tablet TAKE 1 TABLET BY MOUTH EVERY DAY WITH WATER OR JUICE BETWEEN MEALS Taking Lisinopril 10 MG Tablet TAKE 1 TABLET BY MOUTH EVERY DAY FOR 90 DAYS Taking Glucose 4 GM Tablet Chewable as directed Orally 30 Taking BD Pen Needle Che U/F 32G X 4 MM Miscellaneous Check blood sugar three times a day DX: E11.9 Taking FreeStyle Sal 2 Dennis - Device as directed Taking HumaLOG KwikPen 100 UNIT/ML Solution Pen-injector Sliding scale; DX: E11.9 Subcutaneous before meals Taking Gabapentin 300 MG Capsule TAKE 1 CAPSULE BY MOUTH THREE TIMES A DAY Taking metFORMIN HCl 1000 MG Tablet TAKE 1 TABLET BY MOUTH TWICE A DAY WITH MEALS Not-TakingOmeprazole 40 MG Capsule Delayed Release 1 capsule 30 minutes before morning meal Orally Once a day traMADol HCl 50 MG Tablet 1 tablet as needed Orally Once a day Diflucan 150 MG Tablet 1 tablet Orally once Vicodin 5-300 MG Tablet 1 tablet as needed Orally every 6 hrs tiZANidine HCl 4 MG Tablet 1 tablet as needed Orally Three times a day tiZANidine HCl 2 MG Tablet 1 tablet as needed Orally Three times a day Bactrim DS 800-160 MG Tablet 1 tablet Orally Twice a day traMADol HCl 50 MG Tablet 1 tablet as needed Orally Once a day Medication List reviewed and reconciled with the patientNot-Taking Omeprazole 40 MG Capsule Delayed Release 1 capsule 30 minutes before morning meal Orally Once a day Not-Taking traMADol HCl 50 MG Tablet 1 tablet as needed Orally Once a day Not-Taking Diflucan 150 MG Tablet 1 tablet Orally once Not-Taking Vicodin 5-300 MG Tablet 1 tablet as needed Orally every 6 hrs Not-Taking tiZANidine HCl 4 MG Tablet 1 tablet as needed Orally Three times a day Not-Taking tiZANidine HCl 2 MG Tablet 1 tablet as needed Orally Three times a day Not-Taking Bactrim DS 800-160 MG Tablet 1 tablet Orally Twice a day Not-Taking traMADol HCl 50 MG Tablet 1 tablet as needed Orally Once a day Medication List reviewed and reconciled with the patient * Allergies:?Trulicity: nausea /headache - Side Effectsno[Allergies Verified] Objective: * Vitals:?Temp:97.7F, Oxygen s at %:98%, HR:88/min, BP:110/82mm Hg, Wt:191.4lbs, BMI:32.85Index, Ht: 64 in. * Examination: ???General Examination: ?Psychiatry?Normal.?GENERAL APPEARANCE:?Well developed, well nourished, in no acute distress.?MUSCULOSKELETAL:?mild discomfort on flexion and extension of the right knee joint.?HEAD:?Normocephalic, atraumatic.?EYES:?Pupils equal, round, reactive to light and accommodation, sclera non-icteric.?SINUSES?Normal.?NECK/THYROID:?Neck supple, full range of motion, no cervical lymphadenopathy.?SKIN:?Warm and dry, no suspicious lesions.?HEART:?Normal, no murmurs, rubs, gallops.?LUNGS:?Normal, clear to auscultation bilaterally.?BREASTS:?__, normal, normal, no discharge, no drainage.?ABDOMEN:?bowel sounds present.?EXTREMITIES:?Normal.?PERIPHERAL PULSES:?Normal.?NEUROLOGIC:?Nonfocal,? appropriate?motor strength normal upper and lower extremities, sensory exam intact.?FEMALE GENITOURINARY:?__.?MALE GENITOURINARY:?__.?Personal Computer Network Engineer? .? Assessment: * Assessment: 1.?Cough, unspecified - R05. 9 (Primary)???2.?Pain in right knee - M25.561??? Mrs. Marlow is a 49-year-old female Ukrainian-speaking patient with type 2 diabetes mellitus anxiety, depression, history of H pylori is here for follow-up. She states that recently was seen by Dr. Jones for iron transfusion.? She complains of right knee joint pain and cough.? Plan is as follows Cough.? Most likely viral.? She has upcoming? cholecystectomy at [facility].? We will do chest x-ray to rule out any underlying pathology.meanwhile she can continue Tessalon Perles and appropriate hydration. Pain right knee joint.? Osteoarthritis, tendinitis.? Will do x-ray and continue ibuprofen along with Tylenol and recommended weight loss. once we have the results of the x-ray we will decide on further disposition Plan: * Treatment: 2.?Pain in right knee?Imaging: Xray: Knee Right (Standard, 4 Views) * Procedure Codes:?3079F DIAST BP 80-89 MM [id number] SYST BP LT 130 MM HG * Follow Up:?6 Months * Images: * Sign off status: Completed true * Provider:?ALBERT MOJICA MD Date:?12/25 Generated for Alvaro dooley/Bassam/Horaceitting on:?12/31/2024 07:09 PM EDT History and Physical Notes * HPI (History of Present Illness) Category Sub-Category Detail Notes Category Not es Internal Medicine Mrs. Marlow is a 49-year-old female Ukrainian-speaking patient with type 2 diabetes mellitus anxiety, depression, history of H pylori is here for follow-up. She states that recently was seen by Dr. Jones for iron transfusion. She currently saw his dentist and she is having infection and she is on clindamycin along with ibuprofen for pain. She is also coughing with no fever or chills and she is on Tessalon Perles. She is going to have gallbladder surgery at [facility] and she is concerned of cough. She also complained of pain in the right knee joint and she has difficulty in flexion and extension. No history of injury or trauma. Per record review, she currently has IUD. Her recent Hgb was 11.5, HCT 39.5, MCV 75. She was on iron supplements, but she could not tolerate it, thus heme/onc decided on Iron infusion with Feraheme 510. Initially she was able to tolerate it but during her second session she developed abdominal pain with body weakness, however after discontinuing the infusion her sxs improved. Now she is back on taking the iron supplements. She also states that she recently had EGD/c-scope which it was remarkable for inactive gastritis negative for esophagitis and hpylori. Internal hemorrhoids were noted. She has a repeat C-scope in 6-12 months due to poor prep. Patient is to start taking Dulcolax daily and to continue on Lansoprazole and famotidine, also to follow FODMAP diet. In addition, she has elective cholecystectomy coming up. She is also currently seeing microsystems engineer for T2DM and was started on glipizide. Off note, she states that she has not been seeing Dr. Meade due to change in insurance and would like to be referred to a new provider. She denies any other active issues. Examination Category Sub-Category Detail Notes Category Not es General Examination GENERAL APPEARANCE: Well dev eloped, well nourished, in no acute distress HEAD: Normocephalic, atrau matic EYES: Pupils equal, round, reactive to light and accommodation, sclera non-icteric NECK/THYROID: Neck supple, full ra nge of motion, no cervical lymphadenopathy HEART: Normal, no murmurs, rubs, gallops LUNGS: Normal, clear to aus cultation bilaterally ABDOMEN: bowel sounds present NEUROLOGIC: Nonfocal, appropriat e motor strength normal upper and lower extremities, sensory exam intact SKIN: Warm and dry, no selena picious lesions EXTREMITIES: Normal PERIPHERAL PULSES: Normal BREASTS: __, normal, normal, no discharge, no drainage MUSCULOSKELETAL: mild discomfort on f lexion and extension of the right knee joint MALE GENITOURINARY: __ FEMALE GENITOURINARY: __ Psychiatry Normal SINUSES Normal Personal Computer Network Engineer
--- OUTSIDE RECORDS SUMMARY | 2024-12-31 19:10 | XMS_ITS ---
Author Organization [facility] Address [address] [place] [address] [address] [place] [address] Care Team Providers Care [employer] Worker Name Role Phone ALBERT MOJICA Primary Care Provider [phone] REASON FOR VISIT psychi Encounters Encounter Location Date Provider Diagnosis [facility] [address] [facility] [address] [place] [address] 11/03/2024 ALBERT MOJICA Plan Of Treatment Next Appt Details Provider Name:Eladio Almazanjeremiah multani, 01/11/2025 11:00:00 AM, [address] [place] [address], [place], [phone], Provider Name:Eladio Almazaninnadaphney nerissa, 03/14/2025 11:00:00 AM, [address] [place] [address], [phone], Progress Notes * Ele DEL VALLEDOB:1975 ( 49 yo F)Acc No.[id number]:11/03/2024 Patient:?Ele DEL VALLE :1975???Age:49 Y???Sex:Female Address:[place] [address] * true * Date:? Generated for Printi soumya/Bassam/eTransmitting on:?12/31/2024 07:10 PM EDT
--- OUTSIDE RECORDS SUMMARY | 2024-12-31 19:10 | XMS_ITS | Continuity of Care Document ---
Author Organization [facility] ter Address [address] [place] [address]- Care Team Providers Care Jewelry Model Maker Name Role Phone Yarely Rondon MD Primary Care Physician [phone] [id number] Date(s): 12/28/24 - 12/28/[address] [address]- Encounter Diagnosis N&V (nausea and vomiting)(Final) - 12/28/24 Discharge Disposition: A-D/C Home Attending Physician: Seymour Escobedo MD Admitting Physician: Seymour Escobedo MD Referring Physician: Not on Staff, Referring MD Encounter Type: Disch ES Allergies, Adverse Reactions, Alerts No Known Allergies Medications (Vitamin D3) Cholecalciferol 400 RETIREMENT units/mL oral syringe 1 mL = 10 [...] hours, PRN for pain, May partial fill [id number], # 12 tablet, 0 Refills, Maintenance, 07/09/23 12:54:00 AM EDT, Tablet, [facility]/pharmacy #[id number], Partial fill upon patient request if the prescription is for a schedule II opioid drug., 1-2 tablet By Mouth Every 6 hours,PRN:for pain,Instr:May partial fill; BS [id number], 160, cm, 07/08/23 21:38:00 EDT, Height, 93, [...] 03/06/23 Status: Ordered Repeat number: 1 Freestyle Sal 3 Monitor Freestyle Sal 3 Monitor, See Instructions, # 1 each, Refills 0, Tot. Refills 0, Maintenance, Use to check blood glucose at least 4x daily E 11.9, 10/31/24 7:31:00 PM EST, Supply, 160, cm, 10/26/24 10:54:00 EST, Height, 89.5, kg, 02/16/24 12:27:00 EDT, Dry Weight Start Date: 10/31/24 Status: Ordered Quantity: 1.0 Unit: each Repeat number: 1 Indication: Type 2 diabetes mellitus with hyperglycemia Freestyle Sal 3 Plus sensors Freestyle Sal 3 Plus sensors, See Instructions, # 2 each, Refills 11, Tot. Refills 11, Maintenance, E11.9 30 day supply Use to check blood glucose 4x daily, 10/31/24 7:30:00 PM EST, Supply, 160, cm, 10/26/24 10:54:00 EST, Height, 89.5, kg, 02/16/24 12:27:00 EDT, Dry Weight Start Date: 10/31/24 Status: Ordered Quantity: 2.0 Unit: each Repeat number: 12 Indication: Type 2 diabetes mellitus with hyperglycemia Freestyle Lite Lancets Freestyle Lite Lancets, See Instructions, # 100 each, Refills 11, Tot. Refills 11, Maintenance, Used to test blood glucose 3x/day. E11.65, 10/26/24 11:21:00 AM EST, Supply, 160, cm, 10/26/24 10:54:00 EST, Height, 89.5, kg, 02/16/24 12:27:00 EDT, Dry Weight Start Date: 10/26/24 Status: Ordered Quantity: 100.0 Unit: each Repeat number: 12 Indication: Type 2 diabetes mellitus with hyperglycemia Freestyle Lite Lancets Maintenance, 01/03/18 2:31:14 PM [...] 5 Refills, Maintenance, 12/01/11 1:05:40 PM EST, [facility]/pharmacy #[id number] Start Date: 12/01/11 Status: Ordered Quantity: 180.0 Unit: capsule Repeat number: 6 glipiZIDE 5 mg oral tablet, extended release 1 tablet = 5 mg, By Mouth, Daily, with breakfast, # 30 tablet, 5 Refills, Maintenance, 10/26/24 11:22:00 AM EST, ER Tablet, [facility]/pharmacy #[id number], Partial fill upon patient request if the prescription isfor a schedule II opioid drug., 160, cm, 10/26/24 10:54:00 EST, Height, 89.5, kg, 02/16/24 12:27:00EDT, Dry Weight Start Date: 10/26/24 Status: Ordered Quantity: 30.0 Unit: tablet Repeat number: 6 Indication: Type 2 diabetes mellitus with hyperglycemia hydrOXYzine hydrochloride 25 mg oral tablet 1 [...] Quantity: 60.0 Unit: tablet Repeat number: 1 metoclopramide 10 mg oral tablet 1 tablet = 10 mg, By Mouth, 4 times a day, for 7 days, # 28 tablet, 0 Refills, Acute 01/04/25 6:43:00 PM EDT, 12/28/24 6:43:00 PM EDT, Tablet, [facility]/pharmacy #1972, Partial fill upon patient request if the prescription is for a schedule II opioid drug., 160, cm, 12/28/24 14:30:00 EDT, Height, 86.5, kg, 12/28/24 14:30:00 EDT, Dry Weight Start Date: 12/28/24 Stop Date: 01/04/25 Status: Ordered Quantity: 28.0 Unit: tablet Repeat number: 1 metoprolol (OP) [...] 9:03:00 AM EDT, Route to Pharmacy Electronically, [facility] ST[id number], 160, cm, 04/07/22 15:56:00 EDT, Height, 96, [...] 12/10/21 12:52:00PM EDT, Route to Pharmacy Electronically, [facility]/pharmacy #[id number], Partial fill upon patient request [...] Confirmed Active Obese class I Confirmed Active Vital Signs Most recent to oldest [Reference Range]: 1 2 Height 160 cm (12/28/24 2:30 PM) 160 cm (12/28/24 2:15 PM) Weight 86.5 kg (12/28/24 2:30 PM) 86.5 kg (12/28/24 2:15 PM) Oxygen Saturation [94-100 %] 100 % (12/28/24 2:15 PM) Pulse Rate [55-90 bpm] 77 bpm (12/28/24 2:15 PM) Body Mass Index [18.5-24.99 kg/m2] 33.79 kg/m2 *>HHI* (12/28/24 2:15 PM) Blood Pressure [90-138/55-84 mm Hg] 139/ 79mm Hg *H* (12/28/24 2:15 PM) Respiratory Rate [16-30 br/min] 18 br/mi n (12/28/24 2:15 PM) Temperature [96.8-100.4 DegF] 97.6 DegF (12/28/24 2:15 PM) Mode of Delivery (Oxygen) Room air (12/28/24 2:15 PM) Blood pressure sites Arm, left (12/28/24 2:15 PM) Temperature Route Oral (12/28/24 2:15 PM) Dry Weight 86.5 kg (12/28/24 2:30 PM) 86.5 kg (12/28/24 2:15 PM) Weight Obtained Via Patient/family state d (12/28/24 2:15 PM) Dry Weight Obtained Via Patient/family s tated (12/28/24 2:15 PM) Social History Social History Type Response Smoking Status Never smoker entered on: 01/03/18 Sex Sex Representation Female (finding) Note * Seymour Escobedo MD: PERFORM Event Display: Patient Education Leaflets Authored Date: [id number] [employer] ?? [id number] ? (?) ?. ?. ? (?)?. ?. ? (?) ?. ?. ?. ?. ?. ? . ?. ?. ?: ? (?) ? 24 ?. ?. ?. ? 20 ?. ?.? 20 ?. ?. ?. ?. ?.?. ? 18 ?. ?. ?. ?. ?. ?. ?. ?. ?: ? 12 ? 24 ?: ? (?)? 24 ?: ? (?) ? (6 ? 8 ?) ? 24 ?. ?. ?: ? (?) ? 24 ? (? 5?)? (?) ? 100.4 ? (38 ?) ? Last Reviewed Date: 2024 00:00:00 ? [employer] ?. ?. ?. ?? Patient Care team information Care Team Personnel Name: Yarely Rondon MD Position: [facility] Physician - Primary Care Member Role: PCP Address: [address] [place] [address]- [place] Telecom: Care Team Related Persons Name: FELICITA SPAULDING Name: YO LONG Name: GHAZALA MEZA Name: MIN LOWERY Insurance Providers Guarantor name: [facility] Information #: 1 Payer: [employer] Member Number: [id number] Policy Number: NA Group Number: [id number] [facility] Information #: 2 Payer: [employer] Member Number: [id number] Policy Number: NA Group Number: NA
--- OUTSIDE RECORDS SUMMARY | 2024-12-31 19:10 | XMS_ITS | Encounter Summary ---
Author Organization [facility] Address 100 [facility] [address] [place] [address] Phone Care Team Providers Care Agronomy Technician Name Role Phone Yarely Rondon MD Primary Care Provider [phone] Reason for Visit * Reason Comments Med Change Request Encounter Details Date Type Department Care Team (Late Contact Info) Description 10/08/2023 Refill [facility] 100 [facility] [address] [place] [address] Catalino Younger MD [address] [address] Social History Tobacco Use Types [...] Visit [facility] [address] [address] Catalino Younger MD [address] [address] documented as of this encounter Visit Diagnoses Not on filedocumented in this encounter Care Teams Agronomy Technician Relationship Specialty Start Date End Date Yarely Rondon MD [address] [place] [address] PCP - General Internal Medicine 04/07/23 documented as of this encounter
--- OUTSIDE RECORDS SUMMARY | 2024-12-31 19:11 | XMS_ITS ---
Author Organization [facility] Address [address] [place] [address] Care Team Providers Care Certified Anesthesiologist Assistant Name Role Phone ALBERT MOJICA Primary Care Provider REASON FOR VISIT psychiatry Encounters Encounter Location Date Provider Diagnosis [facility] [address] [address] 11/03/2024 ALBERT MOJICA Plan Of Treatment Next Appt Details Provider Name:Eladio Almazanjeremiah multani, 01/11/2025 11:00:00 AM, [address] [place] [address], [phone], Provider Name:Eladio Almazanjeremiah multani, 03/14/2025 11:00:00 AM, [address] [place] [address], [phone], Progress Notes * Ele DEL VALLEDOB:1975 ( 49 yo F)Acc No.[id number]:11/03/2024 Patient:?Eel DEL VALLE :1975???Age:49 Y???Sex:Female Address:[place] [address] * true * Date:? Generated for Printi ng/Faxing/eTransmitting on:?12/31/2024 07:11 PM EDT
--- OUTSIDE RECORDS SUMMARY | 2024-12-31 19:11 | XMS_ITS | Continuity of Care Document ---
Author Organization [facility] ter Address [address] [place] [address]- Care Team Providers Care Motel Keeper Name Role Phone Yarely Rondon MD Primary Care Physician [id number] Date(s): 12/29/24 - 12/30/[address] [address]- Encounter Diagnosis Vomiting(Final) - 12/30/24 Discharge Disposition: A-D/C Home Attending Physician: Jane Rousseau MD Admitting Physician: Jane Rousseau MD Referring Physician: Not on Staff, Referring MD Encounter Type: Disch ES Allergies, Adverse Reactions, Alerts No Known Allergies Medications (Vitamin D3) Cholecalciferol 400 ASSISTED units/mL oral syringe 1 mL = 10 [...] hours, PRN for pain, May partial fill [id number], # 12 tablet, 0 Refills, Maintenance, 07/09/23 12:54:00 AM EDT, Tablet, [facility]/pharmacy #1972, Partial fill upon patient request if the prescription is for a schedule II opioid drug., 1-2 tablet By Mouth Every 6 hours,PRN:for pain,Instr:May partial fill; BS [id number], 160, cm, 07/08/23 21:38:00 EDT, Height, 93, [...] 5 Refills, Maintenance, 12/01/11 1:05:40 PM EST, [facility]/pharmacy #[id number] Start Date: 12/01/11 Status: Ordered Quantity: 180.0 Unit: capsule Repeat number: 6 glipiZIDE 5 mg oral tablet, extended release 1 tablet = 5 mg, By Mouth, Daily, with breakfast, # 30 tablet, 5 Refills, Maintenance, 10/26/24 11:22:00 AM EST, ER Tablet, [facility]/pharmacy #1972, Partial fill upon patient request [...] 9:03:00 AM EDT, Route to Pharmacy Electronically, [facility] [id number], 160, cm, 04/07/22 15:56:00 EDT, Height, 96, [...] 12/10/21 12:52:00PM EDT, Route to Pharmacy Electronically, [facility]/pharmacy #1972, Partial fill upon patient request [...] recent to oldest [Reference Range]: 1 2 3 Height 163 cm (12/30/24 4:55 AM) 163 cm (12/29/24 10:55 PM) Weight 86.2 kg (12/30/24 4:55 AM) 86.2 kg (12/29/24 10:55 PM) Oxygen Saturation [94-100 %] 97 % (12/30/24 4:55 AM) 98 % (12/30/24 1:49 AM) 96 % (12/29/24 10:55 PM) Pulse Rate [55-90 bpm] 72 bpm (12/30/24 4:55 AM) 70 bpm (12/30/24 1:49 AM) 75 bpm (12/29/24 10:55 PM) Body Mass Index [18.5-24.99 kg/m2] 32.44 kg/m2 *>HHI* (12/30/24 4:55 AM) Blood Pressure [90-138/55-84 mm Hg] 152/77mm Hg *H* (12/30/24 4:55 AM) 148/66mm Hg *H* (12/30/24 1:49 AM) 152/90mm Hg *H* (12/29/24 10:55 PM) Respiratory Rate [16-30 br/min] 17 br/min (12/30/24 4:55 AM) 18 br/min (12/30/24 1:49 AM) 17 br/min (12/29/24 10:55 PM) Temperature [96.8-100.4 DegF] 98.2 DegF (12/29/24 10:55 PM) Mode of Delivery (Oxygen) Room air (12/30/24 4:55 AM) Room air (12/30/24 1:49 AM) Room air (12/29/24 10:55 PM) Blood pressure sites Arm, left (12/30/24 4:55 AM) Arm, right (12/29/24 10:55 PM) Temperature Route Oral (12/29/24 10:55 PM) Weight Obtained Via Patient/family state d (12/29/24 10:55 PM) Social History Social History Type Response Smoking Status Never smoker entered on: 01/03/18 Sex Sex Representation Female (finding) Note * Rene Diallo DO: PERFORM Event Display: Patient Education Leaflets Authored Date: [id number] [facility] ?? [id number] ? (?) ?. ?. ? (?)?. ?. [...] ?) ? Last Reviewed Date: 2024 00:00:00 ?? [id number] ? [employer] ?. ?. ?. ?? Patient Care team information Care Team Personnel Name: Yarely Rondon MD Position: [facility] Physician - Primary Care Member Role: PCP Address: [address] [facility] [address] [place] [address]- Telecom: Care Team Related Persons Name: FELICITA SPAULDING Name: YO LONG Name: GHAZALA MEZA Name: MIN LOWERY Insurance Providers Guarantor name: [facility] [employer] [facility] Information #: 1 Payer: [employer] O Member Number: [id number] Policy Number: NA Group Number: [id number] Health Plan Information #: 2 Payer: [employer] O Member Number: [id number] Policy Number: NA Group Number: NA
[2024-12-31 19:21] VITALS: BP 135/77; PULSE 63; RESP 16; TEMP 36.7; O2SAT 97
== END 2024-12-31 19:21 | disposition home or self-care (01) ==
PROVIDERS: Emergency Provider Internal Medicine; PCP Hospitalist
DX: F41.9 Anxiety disorder, unspecified (principal); K21.9 Gastro-esophageal reflux disease without esophagitis; R53.83 Other fatigue; E11.9 Type 2 diabetes mellitus without complications; I10 Essential (primary) hypertension; Z79.899 Other long term (current) drug therapy
CPT/HCPCS: 36415; 80053; 83690; 85025; 99283; 99284

== ENCOUNTER 2025-01-08 08:50 | Outpatient (AMB) | payer OTHER, SELFPAY ==
--- NOTE | 2025-01-08 08:51 | A.OFFVIS_ITS ---
Vital Signs 01/08/25 09:02 Height 5 ft 3 in Weight 187 lb BMI 33.1 BP 112/63 Blood Pressure Location Rt brachial Position Sitting Pulse 81 Intake Visit Reasons: s/p laparoscopic cholecystectomy Intake Note: Patient here s/p laparoscopic cholecystectomy. Reports incision healing well. Patient c/o: no cocnerns. Steri strips fell off. No longer taking rx pain meds. Surgery: 12-29-2024 Roll Picker Required: Yes Roll Picker Name: Andreea # [id number] Accompanied by: daughter Balbir Allergies No Known Allergies Allergy (Verified 01/08/25 09:02) HPI Comments Details: Patient presents for follow-up status post laparoscopic cholecystectomy. Zoom pit operator was used. She is doing well all things considered. She had a reaction to the pain meds and had to be seen ER for this. Otherwise she is tolerating a diet. She is having bowel movements. Minimal incisional discomfort. Increasing her activity level. [facility] Medical History GERD (gastroesophageal reflux disease) Acid indigestion Back pain Palpitations Leukocytosis Depression Anxiety Asthma Migraine Type 2 diabetes mellitus with polyneuropathy Type 2 diabetes mellitus with hyperglycemia, with long-term current use of insulin Essential hypertension Vitamin D insufficiency Surgical History History of esophagogastroduodenoscopy (EGD) H/O colonoscopy Hx of section Family History Father Hypertension Diabetes Heart disease Mother Diabetes Heart disease Hypertension Social History Household Members: Family and Children Are you a primary neonatal intensive care unit nurse to a significant other at home: No Do you presently have visiting nurse or other home services: No Alcohol intake: current Alcohol intake frequency: does not drink Patient Tobacco Use Status: Never used Tobacco Second Hand Smoke Exposure: No Physical Exam Vital Signs: Last Vital Signs Pulse 81 01/08/25 09:02 BP 112/63 01/08/25 09:02 BMI result Body Mass Index 33.1 Eyes Other: Anicteric GI Other: Abdomen is soft, benign. All wounds clean dry and intact healing well Assessment & Plan Assessment & Plan (1) Status post laparoscopic cholecystectomy: Code(s): Z90.49 - Acquired absence of other specified parts of digestive tract Category: Surgical Plan Patient was been given local instructions, and will otherwise follow-up p.r.n.. All questions answered. Coding Level of Care Code Global (40353) Diagnoses Status post laparoscopic cholecystectomy Z90.49
[2025-01-08 09:02] VITALS: BP 112/63; PULSE 81; BMI 33.1
--- OUTSIDE RECORDS SUMMARY | 2025-01-08 09:36 | XMS_ITS | Clinical Summary ---
Author Organization [facility] Address [address] [place] [address] Phone Care Team Providers Care Die Repairer Trimmer Dies Name Role Phone Yarely Mojica MD Primary Care Provider [phone] Allergies No known active allergies Medications aspirin [...] tablet 1 TABLET BY MOUTH DAILY,INSTR: BREAKFAST Active Active Problems Problem Noted Date Diagnosed Date Trigger ring finger of right hand 05/04/2023 Nodule of skin of hand 08/26/2022 Abnormal gait 04/08/2022 Backache 04/08/2022 Class 2 obesity 04/08/2022 Diabetic neuropathy ([facility] V24, [facility] V28) 0 04/08/2022 Essential hypertension 04/08/2022 Gastro-esophageal reflux disease without esophag itis 04/08/2022 Generalized anxiety disorder 04/08/2022 Insomnia 04/08/2022 Iron deficiency anemia 04/08/2022 Moderate recurrent major dep ression ([facility] V24, [facility] V28) 04/08/2022 Osteoarthrosis 04/08/2022 Transient ischemic attack 04/08/2022 Post-traumatic stress disorder 04/08/2022 Severe obesity (BMI >= 40) ([facility] V24, [facility] V28) 04/08/2022 Overview (08/17/2024): Body mass index (BMI) greater than 40 Encounters Date Type Department Care Team Description 10/31/2024 2:00 PM EST - 10/31/2024 11:59 PM EST Hospital Encounter [facility] [address] [place] [phone] Chi Barrow MD Iron deficiency anemia due to chronic blood loss (Primary Dx) Discharge Disposition: Home or Self Care 10/23/2024 2:00 PM EST - 10/23/2024 11:59 PM EST Hospital Encounter [facility] [address] [place] [phone] Chi Barrow MD Iron deficiency anemia due to chronic blood loss (Primary Dx) Discharge Disposition: Home or Self Care 10/16/2024 10:30 AM EST Office Visit [facility] [address] [place] [phone] Chi Barrow MD Iron deficiency anemia due to chronic blood loss (Primary Dx) from Last 3 Months Surgical History Surgery Date Site/Laterality Comments SECTION PROCEDURE: HISTORICAL Medical History Medical History Date Comments Diabetes mellitus type 2, co ntrolled, with complications (CMS/HCC V24, CMS/HCC V28) DX:Diabetes mellitus type 2, controlled, with complications [...] - 2023-2 5 season) 2024 Influenza Vaccine (Season Ended) 2025 HIB Vaccines Aged Out No longer eligi [...] age to complete this topic Meningococcal B Vaccine Aged Out No l onger eligible based on patient's age to complete this topic RSV Immunization Patients Un christal 20 months Aged Out No longer eligible b ased on patient's age to complete this topic Varicella Vaccines Aged Out No longer eligible based on patient's age to complete this topic Procedures Procedure Name Priority Date/Time Associated Diagnosis Comments [facility] SCREENING DIGITAL Routine 05/07/2022 8:06 AM EDT Encounter for screening mammogram for malignant neoplasm of breast from Last 3 Months or Most Recently Relevant to Health Maintenance Results * DADA SCREENING DIGITAL (05/07/2022 8:06 AM EDT) Anatomical Region Laterality Modality Mammography 05/04/2022 2:48 PM EDT Narrative 05/07/2022 8:06 AM EDT [facility] Diagnostic Imaging Department [address] [place] [address] Patient: ??ELE DEL VALLE ?/Age/Sex: 1975 - 47 - F Unit#: ??[id number] ? Location/Status: ??SPDIMAM/REG CLI ? Mnemonic/Ordering Site: ??DIGSC/SPMAM Ordering Physician: ??YARELY MOJICA MD Dada Screening Digital - 05/04/22 - 1523 EXAM: [facility] Screening Digital EXAM DATE AND TIME: 05/04/2022 3:24 PM HISTORY: ??Screening. COMPARISON: ??05/03/14 outside study TECHNIQUE: CC and MLO views of both breasts were obtained using full field digital mammography. Bilateral digital breast tomosynthesis was performed in the MLO projection. Computer aided detection with the [employer] 7.2-H was employed. TISSUE DENSITY: c. The [...] recall) RECOMMENDATION(S): 1: Repeat film(s) needed LEFT 81221, 68931 3340F, 7030F Dictating Physician: ??ELIAN HERNANDEZ MD Electronically Signed by: ??ELIAN HERNANDEZ MD Dic Date/Time: ??05/07/22803 Sign date/Time: ??05/07/22 08 Procedure Note Elian Hernandez MD - 09/16/2022 [facility] Diagnostic Imaging Department [address] [place] [address] Patient: ELIGIOELE /Age/Sex: 1975 - 47 - F Unit#: [id number] Location/Status: [facility] CLI Mnemonic/Ordering Site: [facility] Ordering Physician: YARELY MOJICA MD [facility] Screening Digital - 05/04/22 - 1523 EXAM: [facility] Screening Digital EXAM DATE AND TIME: 05/04/2022 3:24 PM HISTORY: Screening. COMPARISON: 05/03/14 outside study TECHNIQUE: CC and MLO views of both breasts were obtained using fullfield digital mammography. Bilateral digital breast tomosynthesis was performedin the MLO projection. Computer aided detection with the [employer] 7.2-WO Fundingas employed. TISSUE DENSITY: c. The breasts are [...] recall) RECOMMENDATION(S): 1: Repeat film(s) needed LEFT 39637, 99000 3340F, 7025F Dictating Physician: ELIAN HERNANDEZ MD Electronically Signed by: ELIAN HERNANDEZ MD Dic Date/Time: 05/07/22803 Sign date/Time: 05/07/22805 Yarely Mojica MD IMG BI PROCEDURES Final Result from Last 3 Months or Most Recently Relevant to Health Maintenance Insurance [facility] [address] Care Teams Die Repairer Trimmer Dies Relationship Specialty Start Date End Date Yarely Mojica MD [address] [place] [address] PCP - General Internal Medicine 03/05/22
--- OUTSIDE RECORDS SUMMARY | 2025-01-08 09:36 | XMS_ITS | Encounter Summary ---
Author Organization [facility] Address [address] [facility] [address] [place] [address] Phone Care Team Providers Care Deburr Technician Name Role Phone Yarely Rondon MD Primary Care Provider [phone] Reason for Visit * Reason Comments Med Change Request Encounter Details Date Type Department Care Team (Late Contact Info) Description 10/08/2023 Refill [facility] 100 [facility] [address] [place] [address] Catalino Younger MD [address] [address] Social History Tobacco Use Types [...] [facility] [address] [address] Catalino Younger MD [address] [address] documented as of this encounter Visit Diagnoses Not on filedocumented in this encounter Care Teams Deburr Technician Relationship Specialty Start Date End Date Yarely Rondon MD [address] [place] [address] PCP - General Internal Medicine 04/07/23 documented as of this encounter
--- OUTSIDE RECORDS SUMMARY | 2025-01-08 09:37 | XMS_ITS ---
Author Organization [employer] [facility] Address [address] [place] [address] Care Team Providers Care Petroleum Sampler Name Role Phone AARONCHARLES GilmorePRICE Primary Care [...] 30 days 10/13/2024 Active FreeStyle Sal 2 [place] - as directed Active BD Pen Needle Che U/F 32G X 4 MM Check blood sugar three times a day DX: E11.9 for 30 days Active Gabapentin 300 MG TAKE 1 CAPSULE BY MO [facility] THREE TIMES A DAY for 30 Active [...] EVERY 6 HOURS NEEDED for 25 Active [place] 3 1000 MG 3 capsules Orally On [...] 12/25/2024 Encounters Encounter Location Date Provider Diagnosis [facility] [address] [address] 12/25/2024 ALBERT MOJICA Cough, unspecified R05.9 and Pain in right knee M25.561 Assessments Encounter Date Diagnosis (ICD Code) Assessment Notes Treatment Notes Treatment Clinical Notes Section Notes 12/25/2024 Cough, unspecified (ICD-10 - R05.9) Mrs. Marlow is a 49-year-old female Nepali-speaking patient with type 2 diabetes mellitus anxiety, depression, history of H pylori is here for follow-up. She states that recently was seen by Dr. Jones for iron transfusion. She complains of right knee joint pain and cough. Plan is as follows Cough. Most likely viral. She has upcoming cholecystectomy at [facility]. We will do chest x-ray to rule [...] M25.561) Mrs. Marlow is a 49-year-old female Nepali-speaking patient with type 2 diabetes mellitus anxiety, depression, history of H pylori is here for follow-up. She states that recently was seen by Dr. Jones for iron transfusion. She complains of right knee joint pain and cough. Plan is as follows Cough. Most likely viral. She has upcoming cholecystectomy at [facility]. We will do chest x-ray to rule [...] Provider Name:Eladio Gayle nerissa, 01/11/2025 11:00:00 AM, [address] [place] [address], [phone], Provider Name:Eladio Gayle nerissa, 03/14/2025 11:00:00 AM, [address] [place] [address], [phone], Progress Notes * ELIGIO EleDOB:1975 ( 49 yo F)Acc No.[id number]:12/25/2024 Patient:?Ele DEL VALLE Provider:?ALBERT MOJICA MD :1975???Age:49 Y???Sex:Female D ate:12/25/2024 Address:[address] [place] [address] Subjective: * Chief Complaints: * ???R knee pain/Pt req Dr. Aaron gilmore, will bring daughter * HPI: ???Internal Medicine:? Mrs. Marlow is a 49-year-old female Nepali-speaking patient with type 2 diabetes mellitus anxiety, [...] is going to have gallbladder surgery at [facility] and she is concerned of cough.? [...] coming up. She is also currently seeing environmental protection forester for T2DM and was started on glipizide. [...] PUFFS BY MOUTH NEEDED EVERY 6 HOURS. Atlanta 3 1000 MG Capsule 3 capsules Orally [...] a day DX: E11.9 FreeStyle Sal 2 [place] - Device as directed [employer]LOG KwikPen 100 [...] BY MOUTH NEEDED EVERY 6 HOURS. Taking [place] 3 1000 MG Capsule 3 capsules Orally [...] day DX: E11.9 Taking FreeStyle Sal 2 [place] - Device as directed Taking [employer]umaLOG KwikPen [...] and lower extremities, sensory exam intact.?FEMALE GENITOURINARY:?__.?MALE GENITOURINARY:?__.?Roll Hauler? .? Assessment: * Assessment: 1.?Cough, unspecified - R05. 9 (Primary)???2.?Pain in right knee - M25.561??? Mrs. Marlow is a 49-year-old female Nepali-speaking patient with type 2 diabetes mellitus anxiety, depression, history of H pylori is here for follow-up. She states that recently was seen by Dr. Jones for iron transfusion.? She complains of right knee joint pain and cough.? Plan is as follows Cough.? Most likely viral.? She has upcoming? cholecystectomy at [facility].? We will do chest x-ray to rule [...] * Procedure Codes:?3079F DIAST BP 80-89 MM [id number] SYST BP LT 130 MM HG * Follow Up:?6 Months * Images: * Sign off status: Completed true * Provider:?ALBERT MOJICA MD Date:?12/25 Generated for Alvaro dooley/Bassam/Horaceitting on:?01/08/2025 09:36 AM EDT History and Physical Notes * HPI (History of Present Illness) Category Sub-Category Detail Notes Category Not es Internal Medicine Mrs. Marlow is a 49-year-old female Nepali-speaking patient with type 2 diabetes mellitus anxiety, [...] is going to have gallbladder surgery at [facility] and she is concerned of cough. [...] coming up. She is also currently seeing environmental protection forester for T2DM and was started on glipizide. [...] FEMALE GENITOURINARY: __ Psychiatry Normal SINUSES Normal Roll Hauler
--- OUTSIDE RECORDS SUMMARY | 2025-01-08 09:37 | XMS_ITS ---
Author Organization [facility] Address [address] [place] [address] Care Team Providers Care Cardiovascular Surgical Tech Name Role Phone ALBERT MOJICA Primary Care Provider [phone] Eladio Garrett Unavailable [phone] REASON FOR VISIT Glucose tab PA Denial Encounters Encounter Location Date Provider Diagnosis [facility] [address] [address] 01/02/2025 Eladio Garrett Plan Of Treatment Next Appt Details Provider Name:Eladio multani, 01/11/2025 11:00:00 AM, [address] [place] [address], [phone], Provider Name:Sheilaantonia Almazanjeremiah multani, 03/14/2025 11:00:00 AM, [address] [place] [address], [phone], Progress Notes * Ele DEL VALLEDOB:1975 ( 49 yo F)Acc No.[id number]:01/02/2025 Patient:?Ele DEL VALLE :1975???Age:49 Y???Sex:Female Address:[place] [address] * true * Date:? Generated for Printi ng/Faxing/eTransmitting on:?01/08/2025 09:37 AM EDT
--- OUTSIDE RECORDS SUMMARY | 2025-01-08 09:38 | XMS_ITS | Clinical Summary ---
Author Organization [facility] Address [address] [place] [address] Phone Care Team Providers Care Cell Cleaner Name Role Phone Yarely Rondon MD Primary Care Provider [phone] Allergies No known active allergies Medications aspirin [...] [facility] [address] [address] Catalino Younger MD [address] [address] Health Maintenance Due Date Last Done Comments Breast Cancer Screening 1975 Hepatitis B Vaccine (1 of 3 - 19+ 3-dose series) 03/29 Pneumococcal Vaccine: 50+ Years (1 of 2 - PCV) 993 Colorectal Cancer Screening: Annual FOBT 2023 Colorectal Cancer Screening: Colonoscopy 2023 Colorectal Cancer Screening: Sigmoidoscopy 2023 Diabetes: Hemoglobin A1C 09/06/2023 Diabetes: Ophthalmology Exam 09/06/2023 Diabetes: Pedal Pulse Checked 09/06/2023 Diabetes: Sensory Foot Exam 09/06/2023 Diabetes: Visual Foot Exam 09/06/2023 Influenza Vaccine (Season Ended) 2025 Insurance Care Teams Cell Cleaner Relationship Specialty Start Date End Date Yarely Rondon MD [address] [place] [address] PCP - General Internal Medicine 04/07/23
--- OUTSIDE RECORDS SUMMARY | 2025-01-08 09:38 | XMS_ITS | Clinical Summary ---
Author Organization [facility] Address [address] [place] [address] Care Team Providers Care Ash Handler Name Role Phone Unavailable Primary Care Provider [...] complication, with long-term current use of insulin ([facility]) Take 1,000 mg by mouth 2 (two) times daily Per Endo 1 7 Active ADITYA PEN NEEDLE 32 gauge x 32 ndleIndications:T ype 2 diabetes mellitus without complication, with long-term current use of insulin ([facility]) Per Endo 0 7 Active ONGLYZA 5 mg tabletIndications :Type 2 diabetes mellitus without complication, with long-term current use of insulin ([facility]) Take by mouth once daily Per Endo 0 7 Active insulin glargine (LANTUS) 100 unit/mL injectionIndicati ons:Type 2 diabetes mellitus without complication, with long-term current use of insulin ([facility]) Per Endo 10 mL 7 Active canagliflozin (INVOKANA) 100 mg tabIndications:Ty pe 2 diabetes mellitus without complication, with long-term current use of insulin ([facility]) Take by mouth 7 Active betamethasone dipropionate [...] mcg/actuation inhalerIndication s:Mild intermittent asthma without complication ([facility]) Inhale 2 Puffs into the lungs every [...] 11/05/2018 Overview (07/02/2019): 09/29/18 - Seen at [facility] c/o left sided chest pain x [...] (01/25/2017): Due to menorrhagia Mild intermittent asthma ([facility]) 01/25/2017 Type 2 diabetes mellitus without complication Overview (06/26/2019): F/U [facility] Endo 03/25/18 - Endo F/U. HgA1c 8.8%. [...] Diagnosed Date Resolved Date Diabetic eye exam ([facility]) 11/17/2016 08/03/2018 Overview (11/17/2016): Per pt, [...] Plan of Treatment Not on file Insurance [facility] [place] [employer] [facility] [employer]
--- OUTSIDE RECORDS SUMMARY | 2025-01-08 09:38 | XMS_ITS ---
Author Organization [facility] Address [address] [place] [address] Care Team Providers Care Horse Trekking Guide Name Role Phone ALBERT MOJICA Primary Care Provider REASON FOR VISIT psychiatry Encounters Encounter Location Date Provider Diagnosis [facility] [address] [address] 11/03/2024 ALBERT MOJICA Plan Of Treatment Next Appt Details Provider Name:Eladio Almazanjeremiah multani, 01/11/2025 11:00:00 AM, [address] [place] [address], [phone], Provider Name:Arsengilbertoantonia Irwin multani, 03/14/2025 11:00:00 AM, [address] [place] [address], [phone], Progress Notes * Ele DEL VALLEDOB:1975 ( 49 yo F)Acc No.[id number]:11/03/2024 Patient:?Ele DEL VALLE :1975???Age:49 Y???Sex:Female Address:[place] [address] * true * Date:? Generated for Printi ng/Faxing/eTransmitting on:?01/08/2025 09:37 AM EDT
== END 2025-01-08 09:15 | disposition home or self-care (01) ==
LOC: HO.HGS 08:51
PROVIDERS: PCP Hospitalist; Visit Provider Surgery
DX: Z90.49 Acquired absence of other specified parts of digestive tract (principal)
CPT/HCPCS: 99024

== ENCOUNTER → 2025-01-08 08:50 | Outpatient (BNVA) | payer OTHER, SELFPAY | PROVIDERS: PCP Hospitalist; Visit Provider Surgery | DX: Z90.49 Acquired absence of other specified parts of digestive tract (principal); Z79.899 Other long term (current) drug therapy | CPT/HCPCS: 99212 ==

== ENCOUNTER 2025-01-22 13:24 | Outpatient (AMB) | payer OTHER, SELFPAY ==
[2025-01-22 13:28] VITALS: BP 134/74; PULSE 80; O2SAT 98; BMI 33.1
--- NOTE | 2025-01-22 13:28 | MHC.OFFVIS ---
Vital Signs 01/22/25 13:28 Height 5 ft 3 in Weight 187 lb BMI 33.1 BP 134/74 Blood Pressure Location Rt brachial Position Sitting Pulse 80 Pulse Source Pulse Oximeter Pulse Oximetry (%) 98 Oxygen Delivery Method Room Air Intake Visit Reasons: Gerd Intake Note: ESTABLISHED PATIENT for mgmt of GERD + CIC. Lab done. Chief Complaint; C/O epigastric pain, reflux, intermittent constipation. Pt reports typically having BM every other day. Pt states she had some difficulty managing her medication s/p cholecystectomy Additional note; A VERY lengthy amount of time was needed in attempts to find an middle school spanish teacher. Both video and audio were attempted for establishing connection for approximately 15 minutes without success. An audio middle school spanish teacher was finally found after approximately 20 minutes. Imaging Technician Required: Yes Imaging Technician Services: Imaging Technician Present Imaging Technician Name: [id number] Ciara Accompanied by: Self / Same As Patient Allergies No Known Allergies Allergy (Verified 01/22/25 13:38) HPI HPI Gerd: Details: LAST VISIT: Symptomatic cholelithiasis GERD (gastroesophageal reflux disease) Postprandial epigastric pain Postprandial abdominal bloating Constipation Dyspepsia IBS (irritable bowel syndrome) Helicobacter pylori (H. pylori) Plan History of anemia, patient will go and have her blood work rechecked today. Patient will have colonoscopy rescheduled as she had a suboptimal prep. Will return in 2 months so we can discuss how to prep and making sure that she is currently moving her bowels. Dulcolax has not been working for patient she continues to have left lower quadrant pain and constipation. Will start patient on Linzess 145 mcg if this will not work we will increase her dose. Patient was also encouraged to increase fluid intake and activity to promote better bowel motility. No H pylori found on upper endoscopy. Continue lansoprazole. Avoid dietary triggers and late night snacking. Staying upright for minimum 3 hours after meals discussed with patient. Patient was encouraged to keep her appointment with general surgeon for next week so she can discuss a plan about going for cholecystectomy. Patient is agreeable to current plan of care and verbalizes understanding of instructions, she was given the opportunity to ask questions and all questions answered. ? Thank you for allowing me to participate in her care Orders Orders Complete Blood Count no Diff Today K21.9 Medications New linaclotide (Linzess) 145 mcg PO DAILY 30 caps 2RF LAST VISIT: Patient is here today for follow-up. Patient reports that she has been feeling fairly well except for still having epigastric pain. Patient reports to nauseous at times. Have epigastric stable better what she eats. Sometimes pain with just water. Patient does have a history of H pylori in the past and treated. Endoscopy in August of 2024 showed no H pylori on biopsy. Currently patient is on lansoprazole. Patient admits to be having more difficulties with epigastric pain after cholecystectomy.. Patient has been placed on antibiotics for tooth infection. Patient had to stop as she was getting severe discomfort. Patient was placed on hydrocodone for pain control which caused her to be more constipated. His her patient reports that she is taking Linzess daily, however bowel movements only every couple days. Patient denies any melena, hematochezia. Denies any postsurgical complications. Admits to abdominal bloating with certain food. [facility] Medical History GERD (gastroesophageal reflux disease) Acid indigestion Back pain Palpitations Leukocytosis Depression Anxiety Asthma Migraine Type 2 diabetes mellitus with polyneuropathy Type 2 diabetes mellitus with hyperglycemia, with long-term current use of insulin Essential hypertension Vitamin D insufficiency Surgical History (Updated 01/22/25 @ 13:48 by CYNDI Sampson) Hx of cholecystectomy History of esophagogastroduodenoscopy (EGD) H/O colonoscopy Hx of section Family History Father Hypertension Diabetes Heart disease Mother Diabetes Heart disease Hypertension Social History Household Members: Family and Children Are you a primary home care physical therapist to a significant other at home: No Do you presently have visiting nurse or other home services: No Alcohol intake: current Alcohol intake frequency: does not drink Patient Tobacco Use Status: Never used Tobacco Second Hand Smoke Exposure: No Review of Systems Const Denies weight gain and Denies weight loss ENT Reports no additional complaints, Denies dysphagia and Denies odynophagia Card Reports no additional complaints Resp Reports no additional complaints GI Reports abdominal pain (Epigastric), Denies belching, Denies melena, Reports bloating, Denies change in bowel habits, Reports constipation, Denies dysphagia, Denies excessive flatus, Denies dyspepsia, Reports heartburn, Denies diarrhea, Denies loose stools, Denies nausea, Denies odynophagia and Denies vomiting Reports no additional complaints Musc Reports no additional complaints Neuro Reports no additional complaints Psych Reports no additional complaints Endo Reports no additional complaints Physical Exam Vital Signs: Last Vital Signs Pulse 80 01/22/25 13:28 BP 134/74 01/22/25 13:28 Pulse Ox 98 01/22/25 13:28 Oxygen Delivery Method Room Air 01/22/25 13:28 BMI result Body Mass Index 33.1 Const General: healthy appearing and no acute distress Nutritional Appearance: obese Orientation/consciousness: patient oriented x3 Resp Effort & Inspection: normal respiratory effort, able to speak in complete sentences, no tracheal deviation and symmetric chest movement Auscultation: clear to auscultation bilaterally Cardio Rate: regular rate GI Inspection: Yes normal to inspection, No distended and Yes obesity Palpation (GI): Soft to palpation, not firm, nontender and No hepatosplenomegaly present Auscultation: normal bowel sounds General: Yes no CVA tenderness Back/Spine/Pelvis Back: no CVA tenderness Skin General skin exam: elasticity normal, turgor normal and dry skin Neuro General: patient oriented x3 Psych Appearance: grossly normal Mental Status: mental status grossly normal Assessment & Plan Assessment & Plan (1) Status post laparoscopic cholecystectomy: Code(s): Z90.49 - Acquired absence of other specified parts of digestive tract Category: Surgical (2) GERD (gastroesophageal reflux disease): Code(s): K21.9 - Gastro-esophageal reflux disease without esophagitis Category: Medical Qualifiers: Esophagitis presence: without esophagitis Qualified Code(s): K21.9 - Gastro-esophageal reflux disease without esophagitis (3) Postprandial epigastric pain: Code(s): R10.13 - Epigastric pain (4) Postprandial abdominal bloating: Code(s): R14.0 - Abdominal distension (gaseous) (5) Dyspepsia: Code(s): R10.13 - Epigastric pain (6) IBS (irritable bowel syndrome): Code(s): K58.9 - Irritable bowel syndrome, unspecified Qualifiers: Irritable bowel syndrome type: with constipation Qualified Code(s): K58.1 - Irritable bowel syndrome with constipation (7) Helicobacter pylori (H. pylori): Code(s): A04.8 - Other specified bacterial intestinal infections Plan Patient will hold lansoprazole and will take famotidine twice a day for 2 weeks until her H pylori breath test. Patient can restart PPI after the testing. If positive we will treat empirically. Continue Linzess daily. Increase fluid intake and activity to remove it her bowels lately. Patient reports postprandial abdominal bloating. Discussed with her low FODMAP diet. List of food recommended as well as list of food to avoid given to patient. Patient will follow-up in 3 months, sooner on as needed basis. She is agreeable to this plan and verbalizes understanding of instructions. She was given the opportunity to ask questions and all questions answered. Thank you for allowing me to participate in her care Orders: Orders H Pylori Breath Test Today K21.9 - Gastro-esophageal reflux disease without esophagitis Medications: On Hold lansoprazole Hold Comment: Doctor's Order 30 mg PO DAILY 90 caps 3RF K21.9 - Gastro-esophageal reflux disease without esophagitis Coding Level of Care Code Est Pt Level 4 (79050) Complex EM visit Add On G2211 Diagnoses Status post laparoscopic cholecystectomy Z90.49 Gastroesophageal reflux disease without esophagitis K21.9 Esophagitis presence: without esophagitis Postprandial epigastric pain R10.13 Postprandial abdominal bloating R14.0 Dyspepsia R10.13 Irritable bowel syndrome with constipation K58.1 Irritable bowel syndrome type: with constipation Helicobacter pylori (H. pylori) A04.8 Time Spent (min) 40 Comment 25 minutes spent with patient and additional 15 minutes spent reviewing her records
--- OUTSIDE RECORDS SUMMARY | 2025-01-22 15:55 | XMS_ITS | Encounter Summary ---
Author Organization [facility] Address [address] [facility] [address] [place] [address] Phone Care Team Providers Care Irrigation Equipment Installer Name Role Phone Yarely Rondon MD Primary Care Provider [phone] Reason for Visit * Reason Comments Med Change Request Encounter Details Date Type Department Care Team (Late Contact Info) Description 10/08/2023 Refill [facility] [address] [facility] [address] [place] [address] Catalino Younger MD [address] [address] Social History Tobacco Use Types [...] Visit [facility] [address] [address] Catalino Younger MD [address] [address] documented as of this encounter Visit Diagnoses Not on filedocumented in this encounter Care Teams Irrigation Equipment Installer Relationship Specialty Start Date End Date Yarely Rondon MD [address] [place] [address] PCP - General Internal Medicine 04/07/23 documented as of this encounter
--- OUTSIDE RECORDS SUMMARY | 2025-01-22 15:55 | XMS_ITS | Clinical Summary ---
Author Organization [facility] Address [address] [place] [address] Care Team Providers Care Contact Lens Inspector Name Role Phone Unavailable Primary Care Provider [...] complication, with long-term current use of insulin ([facility]) Take 1,000 mg by mouth 2 (two) times daily Per Endo 1 7 Active ADITYA PEN NEEDLE 32 gauge x 32 ndleIndications:T ype 2 diabetes mellitus without complication, with long-term current use of insulin ([facility]) Per Endo 0 7 Active ONGLYZA 5 mg tabletIndications :Type 2 diabetes mellitus without complication, with long-term current use of insulin ([facility]) Take by mouth once daily Per Endo 0 7 Active insulin glargine (LANTUS) 100 unit/mL injectionIndicati ons:Type 2 diabetes mellitus without complication, with long-term current use of insulin ([facility]) Per Endo 10 mL 7 Active canagliflozin (INVOKANA) 100 mg tabIndications:Ty pe 2 diabetes mellitus without complication, with long-term current use of insulin ([facility]) Take by mouth 7 Active [...] mcg/actuation inhalerIndication s:Mild intermittent asthma without complication ([facility]) Inhale 2 Puffs into the lungs every [...] 11/05/2018 Overview (07/02/2019): 09/29/18 - Seen at [facility] c/o left sided chest pain x [...] (01/25/2017): Due to menorrhagia Mild intermittent asthma ([facility]) 01/25/2017 Type 2 diabetes mellitus without complication Overview (06/26/2019): F[facility]o 03/25/18 - Endo F/U. HgA1c 8.8%. [...] Date Resolved Date Diabetic eye exam ([facility]) 11/17/2016 08/03/2018 Overview (11/17/2016): Per pt, follow [...] Plan of Treatment Not on file Insurance [facility] [employer] [place] [employer] [facility] [employer]
--- OUTSIDE RECORDS SUMMARY | 2025-01-22 15:55 | XMS_ITS ---
Author Organization [facility] Address [address] [address] Care Team Providers Care Residential Treatment Specialist Name Role Phone ALBERT MOJICA Primary Care Provider Eladio Garrett Unavailable [phone] REASON FOR VISIT Ubrelvy PA Approval Medications Medication SIG (Take, Route, Frequency, Duration) Notes Start Date End Date Status Ubrelvy 50 MG 1 tablet as needed, may take second dose at least 2 hours after first dose up to 4 tablets per day as needed Orally Once a day for 30 days As needed 01/11/2025 Active Encounters Encounter Location Date Provider Diagnosis [facility] [address] [address] 01/15/2025 Eladio Garrett Migraine, unspecified, not intractable, without status migrainosus G43.909 Assessments Encounter Date Diagnosis (ICD Code) Assessment Notes Treatment Notes Treatment Clinical Notes Section Notes 01/15/2025 Migraine, unspecified, not intractable, without status migrainosus (ICD-10 - G43.909) Plan Of Treatment Medication Medication Name Sig Start Date Stop Date Notes Ubrelvy 50 MG 1 tablet as needed, may take second dose at least 2 hours after first dose up to 4 tablets per day as needed Orally Once a day for 30 days 01/11/2025 Next Appt Details Provider Name:Eladio multani, 03/14/2025 11:00:00 AM, [address] [place] [address], [phone], Provider Name:Eladio multani, 07/13/2025 10:30:00 AM, [address] [place] [address], [place], [phone], Progress Notes * Ele DEL VALLEDOB:1975 ( 49 yo F)Acc No.[id number]:01/15/2025 Patient:?Ele DEL VALLE :1975???Age:49 Y???Sex:Female Address:[address] [place] [address] * Refills? Refill Ubrelvy Tablet, 50 MG, Orally, 90, 1 tablet as needed, may take second dose at least 2 hours after first dose up to 4 tablets per day as needed, Once a day, 30 days, Refills=3 * true * Date:? Generated for Alvaro dooley/Bassam/Patysmitting on:?01/22/2025 03:55 PM EDT
--- OUTSIDE RECORDS SUMMARY | 2025-01-22 15:55 | XMS_ITS | Clinical Summary ---
Author Organization [facility] Address [address] [place] [address] Phone Care Team Providers Care Alley Cleaner Name Role Phone Yarely Rondon MD Primary Care Provider [phone] Allergies No known active allergies Medications aspirin [...] Visit [facility] [address] [address] Catalino Younger MD [address] [address] Health Maintenance Due Date Last Done Comments [...] Vaccine (Season Ended) 2025 Insurance Care Teams Alley Cleaner Relationship Specialty Start Date End Date Yarely Rondon MD [address] [place] [address] PCP - General Internal Medicine 04/07/23
--- OUTSIDE RECORDS SUMMARY | 2025-01-22 15:55 | XMS_ITS ---
Author Organization [facility] Address [address] [place] [address] Care Team Providers Care Cream Maker Name Role Phone SANAMNeil PRICE Primary Care Provider [phone] Eladio Garrett Unavailable [phone] Allergies Allergen (clinical drug ingredient) Drug/Non Drug Allergy documented on EMR Reaction Allergy Type Onset Date Status dulaglutide Trulicity nausea/headache Drug Allergy Active Reason For Referral Reason Please evaluate and treat Diagnosis 1 Post-traumatic stres s disorder, unspecified (F43.10) Referral Organization [facility] Referring Provider First Name Eladio Referring Provider Last Name Tami Referred Provider Specialty Psychiatry General Notes Please call patient to schedule appointment.Niles Crystal 01/12/2025 07:07:00 AM > Referral Priority Routine REASON FOR VISIT 3 month f/u Medications Medication SIG (Take, Route, Frequency, Duration) Notes Start Date End Date Status Ubrelvy 50 MG 1 tablet as needed, may take second dose at least 2 hours after first dose up to 4 tablets per day as needed Orally Once a day for 30 days As needed 01/11/2025 Active Bactrim DS 800-160 MG 1 tablet Orally Tw ice a day for 3 days 11/04/2023 Not-Taking traMADol HCl 50 MG 1 tablet as needed Orally Once a day for 14 days 08/04/2023 Not-Taking tiZANidine HCl 4 MG 1 tablet as needed Orally Three times a day for 7 days 05/06/2022 Not-Taking tiZANidine HCl 2 MG 1 tablet as needed Orally Three times a day for 7 days 08/04/2023 Not-Taking Albuterol Sulfate HFA 108 (90 Base) MCG/ACT 1 puff as needed Inhalation every 4 hrs for 30 days 12/25/2024 Active Diflucan 150 MG 1 tablet Orally once for 1 days 11/04/2023 Not-Taking Vicodin 5-300 MG 1 tablet as needed Orally every 6 hrs Not-Taking Omeprazole 40 MG 1 capsule 30 minutes before morning meal Orally Once a day for 30 days Not-Taking traMADol HCl 50 MG 1 tablet as needed Orally Once a day for 14 days 07/14/2024 Not-Taking Gabapentin 300 MG TAKE 1 CAPSULE BY MO [facility] THREE TIMES A DAY for 30 Active metFORMIN HCl 1000 MG TAKE 1 TABLET BY M OUTH TWICE A DAY WITH MEALS for 90 Active FreeStyle Sal 2 Union - as directed Active HumaLOG KwikPen 100 UNIT/ML Sliding scale; DX: E11.9 Subcutaneous before meals for 30 days Active BD Pen Needle Che U/F 32G X 4 MM Check blood sugar three times a day DX: E11.9 for 30 days Active Baclofen 10 MG 1 tablet as needed Orally Twice a day for 30 days Active Glucose 4 GM as directed Orally 3 0 for 30 days 10/13/2024 Active Ferrous Gluconate 324 (38 Fe) MG TAKE 1 TABLET BY MOUTH EVERY DAY WITH WATER OR JUICE BETWEEN MEALS for 90 Active Lisinopril 10 MG TAKE 1 TABLET BY [facility] EVERY DAY FOR 90 DAYS for 90 Active FreeStyle Sal 2 Sensor - Take as DIRECTED TRANSDERMAL CHANGE EVERY 14 DAYS 30 DAYS for 30 days Active Lansoprazole 30 MG 1 capsule before a m eal Orally Once a day for 30 days 08/15/2024 Active FLUoxetine HCl 40 MG TAKE 1 CAPSULE BY OUT EVERY DAY FOR 30 DAYS for 30 Active Famotidine 40 MG 1 tablet Orally Once a day for 30 days 08/15/2024 Active Vitamin D3 50 MCG (2000 UT) 1 capsule Orally Once a day for 90 days Active Lantus SoloStar 100 UNIT/ML 25 unit Subcutaneous once a day for 30 days Active Prazosin HCl 1 MG 1 capsule at bedtime Orally Once a day for 30 days Active FreeStyle Lancets - as directed for 30 days Active Aspirin Low Dose 81 MG TAKE 1 TABLET BY MOUTH EVERY DAY FOR 90 DAYS for 90 Active Albuterol Sulfate HFA 108 (90 Base) MCG/ACT INHALE 2 PUFFS BY MOUTH NEEDED EVERY 6 HOURS. for 25 Active Big Sandy 3 1000 MG 3 capsules Orally On ce a day for 30 days 08/13/2023 Active Nabumetone 500 MG 1 tablet Orally Twic e a day for 30 day(s) 05/21/2020 Active ProAir HFA 108 (90 Base) MCG/ACT INHALE 2 PUFFS BY MOUTH EVERY 6 HOURS NEEDED for 25 Active FreeStyle Lite Test - as directed In Vitro Active Nuedexta 20-10 MG 1 capsule Orally Twi ce a day Active Fish Oil 1000 MG 1 capsule Orally Onc e a day Active Metoprolol Tartrate 25 MG 0.5 tablet wit h food Orally Twice a day for 30 day(s) Active Nitrostat 0.4 MG as directed Sublingual Active Ambien 10 MG 1 tablet at bedtime as needed Orally Once a day Active SEROquel 25 MG 1 tablet at bedtime Orally Once a day Active hydrOXYzine HCl 25 MG 1 tablet as needed Orally every 8 hrs Active Abilify 10 MG 1 tablet Orally Once a day Active Amitriptyline HCl 25 MG 1 tablet at bedt david Orally Once a day for 30 day(s) Active Calcium Carbonate 1250 (500 Ca) MG 1 tablet with food Orally Twice a day Active Laxative 5 MG 1 tablet as needed Orally Once a day Active Farxiga 10 MG 1/2 tab Orally Once a day Active glipiZIDE 5 MG 1 tablet 30 minutes before breakfast Orally Once a day 11/03/2024 Active Social History Tobacco Use: Social History Observation Description Date Details (start date - stop date) Never Smoker NA - NA Tobacco Use/Smoking Question Answer Notes Are you a nonsmoker Problems Problem Type SNOMED Code ICD Code Onset Dates Problem Status W/U Status Risk Notes Problem Migraine without aura, not refractory (disorder) ([id number]) Migraine, unspecified, not intractable, without status migrainosus (G43.909) Active confirmed Vital Signs Temperature 98.9 degrees Fahrenheit 01/12/20 25 Oximetry 98 % 01/11/2025 Heart Rate 75 /min 01/11/2025 Blood pressure systolic 110 mm Hg 01/12/20 25 Blood pressure diastolic 72 mm Hg 025 Weight 185.7 lbs 01/11/2025 BMI 31.87 kg/m2 01/11/2025 Height 64 in 01/11/2025 Encounters Encounter Location Date Provider Diagnosis [facility] [address] [place] [address] 01/11/2025 Eladio Garrett Type 2 diabetes mellitus without complications E11.9 ; Anemia, unspecified type D64.9 ; Gastro-esophageal reflux disease without esophagitis K21.9 ; Post-traumatic stress disorder, unspecified F43.10 and Migraine, unspecified, not intractable, without status migrainosus G43.909 Assessments Encounter Date Diagnosis (ICD Code) Assessment Notes Treatment Notes Treatment Clinical Notes Section Notes 01/11/2025 Type 2 diabetes mellitus without complications (ICD-10 - E11.9) Mrs. Marlow is a 49-year-old female Slovak-speaking patient with type 2 diabetes mellitus anxiety, depression, history of H pylori is here for follow-up. Plan as follows: T2DM: - She is currently following with duct cleaner at [facility]. Glipizide has been recently added to the regimen. Anemia: Irregular menstrual period: - She currently has IUD. She had two iron infusion, she could not tolerate the second round, thus treatment has been aborted. Patient is to resume back on iron supplements. Recent Hgb was 11.9. We will check CBC in 3-6 months. GERD/abdominal pain: - Had recent EGD/c-sccope. EGD was remarkable for inactive gastritis, negative for hpylori or dysplasia. She is to continue on Lansoprazole and famotidine. C-scope showed internal hemorrhoids but due to poor prep, patient to repeat c-scope in 6-12 months. - She follows with [facility]. She has an elective cholecystectomy surgery coming up at [facility]. PTSD: - referred patient to psychiatry Migraine: We will consider Ubrelvy. NSAIDs are CTD due to history of GI ulcer. Triptan is CTD due to history of TIA. She will be benefit from ubrelvy during acute attack. She was before on TCA however she has not been taking the medication. I have rendered the services for this patient under direct supervision of Dr. Mojica, who did not see the patient but was available upon request 01/11/2025 Anemia, unspecified type (ICD-10 - D64.9) Mrs. Marlow is a 49-year-old female Slovak-speaking patient with type 2 diabetes mellitus anxiety, depression, history of H pylori is here for follow-up. Plan as follows: T2DM: - She is currently following with duct cleaner at [facility]. Glipizide has been recently added to the regimen. Anemia: Irregular menstrual period: - She currently has IUD. She had two iron infusion, she could not tolerate the second round, thus treatment has been aborted. Patient is to resume back on iron supplements. Recent Hgb was 11.9. We will check CBC in 3-6 months. GERD/abdominal pain: - Had recent EGD/c-sccope. EGD was remarkable for inactive gastritis, negative for hpylori or dysplasia. She is to continue on Lansoprazole and famotidine. C-scope showed internal hemorrhoids but due to poor prep, patient to repeat c-scope in 6-12 months. - She follows with [facility]. She has an elective cholecystectomy surgery coming up at [facility]. PTSD: - referred patient to psychiatry Migraine: We will consider Ubrelvy. NSAIDs are CTD due to history of GI ulcer. Triptan is CTD due to history of TIA. She will be benefit from ubrelvy during acute attack. She was before on TCA however she has not been taking the medication. I have rendered the services for this patient under direct supervision of Dr. Mojica, who did not see the patient but was available upon request 01/11/2025 Gastro-esophageal reflux disease without esophagitis (ICD-10 - K21.9) Mrs. Marlow is a 49-year-old female Slovak-speaking patient with type 2 diabetes mellitus anxiety, depression, history of H pylori is here for follow-up. Plan as follows: T2DM: - She is currently following with duct cleaner at [facility]. Glipizide has been recently added to the regimen. Anemia: Irregular menstrual period: - She currently has IUD. She had two iron infusion, she could not tolerate the second round, thus treatment has been aborted. Patient is to resume back on iron supplements. Recent Hgb was 11.9. We will check CBC in 3-6 months. GERD/abdominal pain: - Had recent EGD/c-sccope. EGD was remarkable for inactive gastritis, negative for hpylori or dysplasia. She is to continue on Lansoprazole and famotidine. C-scope showed internal hemorrhoids but due to poor prep, patient to repeat c-scope in 6-12 months. - She follows with [facility]. She has an elective cholecystectomy surgery coming up at [facility]. PTSD: - referred patient to psychiatry Migraine: We will consider Ubrelvy. NSAIDs are CTD due to history of GI ulcer. Triptan is CTD due to history of TIA. She will be benefit from ubrelvy during acute attack. She was before on TCA however she has not been taking the medication. I have rendered the services for this patient under direct supervision of Dr. Mojica, who did not see the patient but was available upon request 01/11/2025 Post-traumatic stress disorder, unspecified (ICD-10 - F43.10) Mrs. Marlow is a 49-year-old female Slovak-speaking patient with type 2 diabetes mellitus anxiety, depression, history of H pylori is here for follow-up. Plan as follows: T2DM: - She is currently following with duct cleaner at [facility]. Glipizide has been recently added to the regimen. Anemia: Irregular menstrual period: - She currently has IUD. She had two iron infusion, she could not tolerate the second round, thus treatment has been aborted. Patient is to resume back on iron supplements. Recent Hgb was 11.9. We will check CBC in 3-6 months. GERD/abdominal pain: - Had recent EGD/c-sccope. EGD was remarkable for inactive gastritis, negative for hpylori or dysplasia. She is to continue on Lansoprazole and famotidine. C-scope showed internal hemorrhoids but due to poor prep, patient to repeat c-scope in 6-12 months. - She follows with [facility]. She has an elective cholecystectomy surgery coming up at [facility]. PTSD: - referred patient to psychiatry Migraine: We will consider Ubrelvy. NSAIDs are CTD due to history of GI ulcer. Triptan is CTD due to history of TIA. She will be benefit from ubrelvy during acute attack. She was before on TCA however she has not been taking the medication. I have rendered the services for this patient under direct supervision of Dr. Mojica, who did not see the patient but was available upon request 01/11/2025 Migraine, unspecified, not intractable, without status migrainosus (ICD-10 - G43.909) Mrs. Marlow is a 49-year-old female Slovak-speaking patient with type 2 diabetes mellitus anxiety, depression, history of H pylori is here for follow-up. Plan as follows: T2DM: - She is currently following with duct cleaner at [facility]. Glipizide has been recently added to the regimen. Anemia: Irregular menstrual period: - She currently has IUD. She had two iron infusion, she could not tolerate the second round, thus treatment has been aborted. Patient is to resume back on iron supplements. Recent Hgb was 11.9. We will check CBC in 3-6 months. GERD/abdominal pain: - Had recent EGD/c-sccope. EGD was remarkable for inactive gastritis, negative for hpylori or dysplasia. She is to continue on Lansoprazole and famotidine. C-scope showed internal hemorrhoids but due to poor prep, patient to repeat c-scope in 6-12 months. - She follows [facility]. She has an elective cholecystectomy surgery coming up at [facility]. PTSD: - referred patient to psychiatry Migraine: We will consider Ubrelvy. NSAIDs are CTD due to history of GI ulcer. Triptan is CTD due to history of TIA. She will be benefit from ubrelvy during acute attack. She was before on TCA however she has not been taking the medication. I have rendered the services for this patient under direct supervision of Dr. Mojica, who did not see the patient but was available upon request Plan Of Treatment Medication Medication Name Sig Start Date Stop Date Notes Ubrelvy 50 MG 1 tablet as needed, may take second dose at least 2 hours after first dose up to 4 tablets per day as needed Orally Once a day for 30 days 01/11/2025 Pending Test Test Name Order Date Albumin/Creatinine Ratio,[id number] Comp. Metabolic Panel [id number] Referrals Referral Date Details 01/11/2025 01/11/2025, Please e valuate and treat Next Appt Details Follow Up: 6 Months-f/up, Re ason: Provider Name:Eladio multani, 03/14/2025 11:00:00 AM, [address] [place] [address], [id number], Provider Name:Eladio multani, 07/13/2025 10:30:00 AM, [address] [place], [place] [address], [place], [address], Progress Notes * Ele DEL VALLEDOB:1975 ( 49 yo F)Acc No.[id number]:01/11/2025 Progress Notes Patient:Ele VAUGHN Appointment Provider:?Eladio Garrett :1975???Age:49 Y???Sex:Female S upervising Provider:Jose Aviles Date:01/11/2025 Address:[facility] [address] [facility] Pcp:ALBERT MOJICA Subjective: * Chief Complaints: * ???3 month f/u * HPI: ???Internal Medicine:? Mrs. Marlow is a 49-year-old female Slovak-speaking patient with type 2 diabetes mellitus anxiety, [...] is going to have gallbladder surgery at [facility] and she is concerned of cough.? [...] coming up. She is also currently seeing duct cleaner for T2DM and was started on glipizide. [...] on urination?denies.?difficulty urinating?denies.?discharge?denies.?dysuria?denies.? * Medical History:? 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 * Social History:?Tobacco Use:?Tobacco Use/Smoking?Are you a?nonsmoker ???Miscellaneous:?Marital status: . ?Occupation: Unemployed. * Medications:?TakingglipiZIDE 5 MG Tablet 1 tablet [...] PUFFS BY MOUTH NEEDED EVERY 6 HOURS. [place] 3 1000 MG Capsule 3 capsules Orally [...] a day DX: E11.9 FreeStyle Sal 2 Union - Device as directed HumaLOG KwikPen 100 UNIT/ML Solution Pen-injector Sliding scale; DX: E11.9 Subcutaneous before meals Gabapentin 300 MG Capsule TAKE 1 CAPSULE BY MOUTH THREE TIMES A DAY metFORMIN HCl 1000 MG Tablet TAKE 1 TABLET BY MOUTH TWICE A DAY WITH MEALS Albuterol Sulfate HFA 108 (90 Base) MCG/ACT Aerosol Solution 1 puff as needed Inhalation every 4 hrs Taking glipiZIDE 5 MG Tablet 1 tablet [...] BY MOUTH NEEDED EVERY 6 HOURS. Taking [place] 3 1000 MG Capsule 3 capsules Orally Once a day Taking FreeStyle Lancets - Miscellaneous as directed Taking Aspirin Low Dose 81 MG Tablet Delayed Release TAKE 1 TABLET BY MOUTH EVERY DAY FOR 90 DAYS Taking Vitamin D3 50 MCG (2000 UT) Capsule 1 capsule Orally Once a day Taking Lantus SoloStar 100 UNIT/ML Solution Pen- injector 25 unit Subcutaneous once a day Taking [...] day DX: E11.9 Taking FreeStyle Sal 2 Union - Device as directed Taking HumaLOG KwikPen 100 UNIT/ML Solution Pen-injector Sliding scale; DX: E11.9 Subcutaneous before meals Taking Gabapentin 300 MG Capsule TAKE 1 CAPSULE BY MOUTH THREE TIMES A DAY Taking metFORMIN HCl 1000 MG Tablet TAKE 1 TABLET BY MOUTH TWICE A DAY WITH MEALS Taking Albuterol Sulfate HFA 108 (90 Base) MCG/ACT Aerosol Solution 1 puff as needed Inhalation every 4 hrs Not-TakingOmeprazole 40 MG Capsule Delayed Release 1 [...] tablet as needed Orally Once a day Not- Taking Diflucan 150 MG Tablet 1 tablet Orally [...] /headache - Side Effectsno[Allergies Verified] Objective: * Vitals:?Temp:98.9F, Oxygen s at %:98%, HR:75/min, BP:110/72mm Hg, Wt:185.7lbs, BMI:31.87Index, Ht: 64 in. * Examination: ???General Examination: ?Psychiatry?Normal.?GENERAL APPEARANCE:?Well developed, well nourished, in no acute distress.?MUSCULOSKELETAL:?normal.?HEAD:?Normocephalic, atraumatic.?EYES:?Pupils equal, round, reactive to light and accommodation, sclera non-icteric.?SINUSES?Normal.?NECK/THYROID:?Neck supple, full range of motion, no cervical lymphadenopathy.?SKIN:?Warm and dry, no suspicious lesions.?HEART:?Normal, no murmurs, rubs, gallops.?LUNGS:?Normal, clear to auscultation bilaterally.?BREASTS:?__, normal, normal, no discharge, no drainage.?ABDOMEN:?bowel sounds present.?EXTREMITIES:?Normal.?PERIPHERAL PULSES:?Normal.?NEUROLOGIC:?Nonfocal,? appropriate?motor strength normal upper and lower extremities, sensory exam intact.?FEMALE GENITOURINARY:?__.?MALE GENITOURINARY:?__.?Line Construction Supervisor? .? Assessment: * Assessment: 1.?Type 2 diabetes mellitus without complications - E11.9???2.?Anemia, unspecified type - D64.9???3.?Gastro-esophageal reflux disease without esophagitis - K21.9???4.?Post-traumatic stress disorder, unspecified - F43.10?? 5.?Migraine, unspecified, not intractable, without status migrainosus - G43.909??? Mrs. Marlow is a 49-year-old female Slovak-speaking patient with type 2 diabetes mellitus anxiety, depression, history of H pylori is here for follow-up. Plan as follows: T2DM: - She is currently following with duct cleaner at [facility]. Glipizide has been recently added to the regimen. Anemia: Irregular menstrual period: - She currently has IUD. She had two iron infusion, she could not tolerate the second round, thus treatment has been aborted. Patient is to resume back on iron supplements. Recent Hgb was 11.9. We will check CBC in 3-6 months. GERD/abdominal pain: - Had recent EGD/c-sccope. EGD was remarkable for inactive gastritis, negative for hpylori or dysplasia. She is to continue on Lansoprazole and famotidine. C-scope showed internal hemorrhoids but due to poor prep, patient to repeat c- scope in 6-12 months. - [facility] follows [facility]. She has an elective cholecystectomy surgery coming up at [facility]. PTSD: - referred patient to psychiatry Migraine: We will consider Ubrelvy. NSAIDs are CTD due to history of GI ulcer. Triptan is CTD due to history of TIA. She will be benefit from ubrelvy during acute attack. She was before on TCA however she has not been taking the medication.? I have rendered the services for this patient under direct supervision of Dr. Mojica, who did not see the patient but was available upon request Plan: * Treatment: 2.?Post-traumatic stress dis order, unspecified? Referral To:Psychiatry ?Reason:Please evaluate and treat 3.?Migraine, unspecified, no t intractable, without status migrainosus? Start Ubrelvy Tablet, 50 MG, 1 tablet as needed, may take second dose at least 2 hours after first dose up to 4 tablets per day as needed, Orally, Once a day As needed, 30 days, 90, Refills 3.?? * Procedure Codes:? * Follow Up:?6 Months-f/up * Images: Review Notes: NidaJose garzon 2025-01-12 16:11:55* Electronically co-signed by Jose Aviles on 01/12/2025 at 04:11 PM EDT Sign off status: Completed true * Appointment Provider:?Eladio Mckeon te:?01/11/2025 Generated for Alvaro dooley/Bassam/Hanh on:?01/22/2025 03:55 PM EDT History and Physical Notes * HPI (History of Present Illness) Category Sub-Category Detail Notes Category Not es Internal Medicine Mrs. Marlow is a 49-year-old female Slovak-speaking patient with type 2 diabetes mellitus anxiety, [...] is going to have gallbladder surgery at [facility] and she is concerned of cough. [...] coming up. She is also currently seeing duct cleaner for T2DM and was started on glipizide. [...] normal, normal, no discharge, no drainage MUSCULOSKELETAL: normal MALE GENITOURINARY: __ FEMALE GENITOURINARY: __ Psychiatry Normal SINUSES Normal Line Construction Supervisor Consultation Request Notes Referral Date Referring Provider Referred Provider Not es 01/11/2025 Eladio Garrett , Please eval uate and treat
--- OUTSIDE RECORDS SUMMARY | 2025-01-22 15:55 | XMS_ITS | Patient Health Record ---
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 Electronic Name Role Phone ALBERT MOJICA Primary Care Provider [phone] Cliff Llamasphylicia Unavailable [phone] UvaldoArsen maloneysumeet Unavailable [phone] Allergies Allergen (clinical drug ingredient) Drug/Non Drug Allergy documented on EMR Reaction Allergy Type Onset Date Status dulaglutide Trulicity nausea/headache Drug Allergy Active Results Component Value Reference Range Notes Hgb A1c with eAG Estimation- [id number] Reviewed date:02/01/2024 07:39:32 AM Interpretation: Performing Lab:[facility], [address] [facility], Phone - [phone], Director - Lissette Notes/Report: Hemoglobin A1c 7.1 4.8-5.6 % . Prediabetes: 5.7 - 6.4 Diabetes: >6.4 Glycemic control for adults with diabetes: <7.0 Estim. Avg Glu (eAG) 157 CBC With Differential/Platel et-[id number] Reviewed date:02/17/2024 03:26:04 PM Interpretation: Performing Lab:[facility], [address] [facility], [place], Phone - [phone], Director - MDSuzette Notes/Report: WBC 11.9 3.4-10.8 x10E3/uL RBC 3.51 [...] % Immature Grans (Abs) 0.0 0.0-0.1 x10E3/uL Ferritin-[id number] Reviewed date:02/16/2024 07:49:03 AM Interpretation: Performing Lab:[facility], [address] [place] [address], Phone - [phone], Director - MDMegandry Notes/Report: Ferritin 10 15-150 ng/mL Iron-[id number] Reviewed date:02/16/2024 07:49:05 AM Interpretation: Performing Lab:[facility] Goddard, [address] [place] [address], Phone - [phone], Director - MDBuffyy Notes/Report: Iron 15 27-159 ug/dL Comp. Metabolic Panel (14)-3 [id number] Reviewed date:10/19/2024 02:29:35 PM Interpretation: Performing Lab:[facility]aura Goddard, [address] [place] [address], Phone - [phone], Director - MDJodry Notes/Report: Glucose 133 70-99 mg/dL BUN 8 6-24 mg/dL Creatinine 0.66 0.57-1.00 mg/dL eGFR 107 >59 mL/min/1.73 BUN/Creatinine Ratio 12 9-23 Sodium 138 134-144 mmol/L Potassium 5.0 3.5-5.2 mmol/L Chloride 102 96-106 mmol/L Carbon Dioxide, Total 23 20-29 mmol/L Calcium 9.6 8.7-10.2 mg/dL Protein, Total 7.3 6.0-8.5 g/dL Albumin 4.2 3.9-4.9 g/dL Globulin, Total 3.1 1.5-4.5 g/dL Bilirubin, Total <0.2 0.0-1.2 mg/dL Alkaline Phosphatase 69 44-121 IU/L AST (SGOT) 12 0-40 IU/L ALT (SGPT) 9 0-32 IU/L Hemoglobin [id number]-[id number] Reviewed date:10/19/2024 02:31:00 PM Interpretation: [facility]forming [facility], [address] [place] [address], Phone - [phone], [facility] Notes/Report: Hemoglobin A1c 7.5 4.8-5.6 % . Prediabetes: 5.7 - 6.4 Diabetes: >6.4 Glycemic control for adults with diabetes: <7.0 Rell Donaldson CMP14 Default A hand-written panel/profile was received from your office. In accordance with the [facility] Ambiguous Test Code Policy dated March 2003, we have completed your order by using the closest currently or formerly recognized AMA panel. We have assigned Comprehensive Metabolic Panel (14), Test Code #641800 to this request. If this is not the testing you wished to receive on this specimen, please contact the [facility] Client Inquiry/Technical Services Department to clarify the test order. We appreciate your business. Comp. Metabolic Panel (14)-3 Reviewed date:08/18/2024 11:12:10 AM Interpretation: Performing Lab:[facility], [address] [facility], Phone - [phone], Director - WYSuzette Notes/Report: Glucose 144 70-99 mg/dL BUN 9 [...] (SGPT) 11 0-32 IU/L CBC With Differential/Platel et-[id number] Reviewed date:08/18/2024 11:13:49 AM Interpretation: Performing Lab:[facility] [place], [address] [facility], Phone - [phone], Director - Lissette Notes/Report: WBC 12.4 3.4-10.8 x10E3/uL Effective August 28, 2024 profile [id number] WBC will be made non-orderable as a [...] Immature Grans (Abs) 0.0 0.0-0.1 x10E3/uL Hemoglobin [id number] Reviewed date:08/18/2024 11:01:17 AM Interpretation: Performing Lab:[facility] [place], [address] [facility], [place], Phone - [phone], Director - Lissette Notes/Report: Hemoglobin A1c 7.0 4.8-5.6 % . Prediabetes: 5.7 - 6.4 Diabetes: >6.4 Glycemic control for adults with diabetes: <7.0 Iron and TIBC-[id number] Reviewed date:07/18/2024 01:55:05 PM Interpretation: Performing Lab:[facility] [place], [address] [place] [address], Phone - [phone], Director - MDJodry Notes/Report: Iron Bind.Cap.(TIBC) 385 250-450 ug/dL UIBC 329 131-425 ug/dL Iron 56 27-159 ug/dL Iron Saturation 15 15-55 % Ferritin-[id number] Reviewed date:07/18/2024 01:54:35 PM Interpretation: Performing Lab:[facility] [place], [address] [place] [address], Phone - [phone], Director - MDJodry Notes/Report: Ferritin 8 15-150 ng/mL CBC With Differential/Platel et-[id number] Reviewed date:07/18/2024 10:47:00 PM Interpretation: Performing Lab:[facility] [place], [address] [place] [address], Phone - [phone], Director - MDJodry Notes/Report: WBC 12.9 3.4-10.8 [...] % Immature Grans (Abs) 0.1 0.0-0.1 x10E3/uL Reason For Referral Reason please evaluate and treat Diagnosis 1 Diabetes mellitus du e to underlying condition with diabetic neuropathy, unspecified (E08.40) Referral Organization [facility] Referring Provider First Name [facility] Referring Provider Last Name Uvaldo Referred Provider Specialty Endocrinolog y General Notes referral was faxed t o [facility]. Please contact patient for scheduling. Referral Priority Routine Reason please evaluate and treat Diagnosis 1 Post-traumatic stres s disorder, unspecified (F43.10) Referral Organization [facility] Referring Provider First Name [facility] Referring Provider Last Name Uvaldo Referred Provider Specialty Psychiatry General Notes referral was faxed t o Dr. Mann office. Please contact patient for scheduling.Rekha Rashida 11/03/2024 01:29:36 PM > Referral Priority Routine Reason Please evaluate and treat Diagnosis 1 Post-traumatic stres s disorder, unspecified (F43.10) Referral Organization [facility] Referring Provider First Name [facility] Referring Provider Last Name Uvaldo Referred Provider Specialty Psychiatry General Notes Please call patient to schedule appointment.Niles Crystal 01/12/2025 07:07:00 AM > Referral Priority Routine Reason Evaluation and manag ement Diagnosis 1 Iron deficiency anem ia, unspecified (D50.9) Referral Organization [facility] Referring Provider First Name [facility] Referring Provider Last Name Uvaldo Referred Provider Specialty Hematology General Notes [facility] Office will call patient for scheduling.Chey Latraya 07/14/2024 08:47:08 AM > Referral Priority Urgent Reason Evaluation and manag ement Diagnosis 1 Other cholelithiasis without obstruction (K80.80) Referral Organization [facility] Referring Provider First Name [facility] Referred Provider Specialty Gastrointest inal surgeon General Notes Referral sent to [facility] - Office will call pt for scheduling.Chey Latraya 07/13/2024 07:43:35 AM > Referral Priority Stat Medications Medication SIG (Take, Route, Frequency, Duration) Notes Start Date End Date Status Prazosin HCl 1 MG 1 capsule at bedtime Orally Once a day for 30 days Active Nabumetone 500 MG 1 tablet Orally Twic e a day for 30 day(s) 05/21/2020 Active Albuterol Sulfate HFA 108 (90 Base) MCG/ACT 1 puff as needed Inhalation every 4 hrs for 30 days 12/25/2024 Active ProAir HFA 108 (90 Base) MCG/ACT INHALE 2 PUFFS BY MOUTH EVERY 6 HOURS NEEDED for 25 Active FreeStyle Lite Test - as directed In Vitro Active Gabapentin 300 MG TAKE 1 CAPSULE BY MO UTH THREE TIMES A DAY for 30 Active Nuedexta 20-10 MG 1 capsule Orally Twi ce a day Active metFORMIN HCl 1000 MG TAKE 1 TABLET BY M OUTH TWICE A DAY WITH MEALS for 90 Active Nitrostat 0.4 MG as directed Sublingual Active FreeStyle Sal 2 Tibbie - as directed Active Fish Oil 1000 MG 1 capsule Orally Onc e a day Active HumaLOG KwikPen 100 UNIT/ML Sliding scale; DX: E11.9 Subcutaneous before meals for 30 days Active Ambien 10 MG 1 tablet at bedtime as needed Orally Once a day Active Glucose 4 GM as directed Orally 3 0 for 30 days 10/13/2024 Active SEROquel 25 MG 1 tablet at bedtime Orally Once a day Active BD Pen Needle Che U/F 32G X 4 MM Check blood sugar three times a day DX: E11.9 for 30 days Active Ferrous Gluconate 324 (38 Fe) MG TAKE 1 TABLET BY MOUTH EVERY DAY WITH WATER OR JUICE BETWEEN MEALS for 90 Active hydrOXYzine HCl 25 MG 1 tablet as needed Orally every 8 hrs Active Lisinopril 10 MG TAKE 1 TABLET BY GLORIA TH EVERY DAY FOR 90 DAYS for 90 Active FreeStyle Sal 2 Sensor - Take as DIRECTED TRANSDERMAL CHANGE EVERY 14 DAYS 30 DAYS for 30 days Active Abilify 10 MG 1 tablet Orally Once a day Active Metoprolol Tartrate 25 MG 0.5 tablet wit h food Orally Twice a day for 30 day(s) Active Amitriptyline HCl 25 MG 1 tablet at bedt david Orally Once a day for 30 day(s) Active Lansoprazole 30 MG 1 capsule before a m eal Orally Once a day for 30 days 08/15/2024 Active Calcium Carbonate 1250 (500 Ca) MG 1 tablet with food Orally Twice a day Active Baclofen 10 MG 1 tablet as needed Orally Twice a day for 30 days Active Laxative 5 MG 1 tablet as needed Orally Once a day Active FLUoxetine HCl 40 MG TAKE 1 CAPSULE BY M OUTH EVERY DAY FOR 30 DAYS for 30 Active Farxiga 10 MG 1/2 tab Orally Once a day Active Famotidine 40 MG 1 tablet Orally Once a day for 30 days 08/15/2024 Active Vitamin D3 50 MCG (2000 UT) 1 capsule Orally Once a day for 90 days Active Bactrim DS 800-160 MG 1 tablet Orally Tw ice a day for 3 days 11/04/2023 Not-Taking glipiZIDE 5 MG 1 tablet 30 minutes before breakfast Orally Once a day 11/03/2024 Active Lantus SoloStar 100 UNIT/ML 25 unit Subcutaneous once a day for 30 days Active traMADol HCl 50 MG 1 tablet as needed Orally Once a day for 14 days 08/04/2023 Not-Taking FreeStyle Lancets - as directed for 30 days Active tiZANidine HCl 4 MG 1 tablet as needed Orally Three times a day for 7 days 05/06/2022 Not-Taking tiZANidine HCl 2 MG 1 tablet as needed Orally Three times a day for 7 days 08/04/2023 Not-Taking Albuterol Sulfate HFA 108 (90 Base) MCG/ACT INHALE 2 PUFFS BY MOUTH NEEDED EVERY 6 HOURS. for 25 Active Diflucan 150 MG 1 tablet Orally once for 1 days 11/04/2023 Not-Taking Shelton 3 1000 MG 3 capsules Orally On ce a day for 30 days 08/13/2023 Active Vicodin 5-300 MG 1 tablet as needed Orally every 6 hrs Not-Taking Omeprazole 40 MG 1 capsule 30 minutes before morning meal Orally Once a day for 30 days Not-Taking traMADol HCl 50 MG 1 tablet as needed Orally Once a day for 14 days 07/14/2024 Not-Taking Aspirin Low Dose 81 MG TAKE 1 TABLET BY MOUTH EVERY DAY for 90 Active Ubrelvy 50 MG 1 tablet as needed, may take second dose at least 2 hours after first dose up to 4 tablets per day as needed Orally Once a day for 30 days As needed 01/11/2025 Active Immunizations Vaccine Route Administration Date Status [...] Problem Status W/U Status Risk Notes Problem Helicobacter pylori (77650547) Helicobacter pylori [H. 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) Active confirmed Problem Moderate recurrent major depression (19989099) Major depressive disorder, recurrent, moderate (F33.1) Active confirmed Problem Generalized anxiety disorder (35372221) Generalized anxiety disorder (F41.1) Active confirmed Problem Post-traumatic stress disorder (53120965) Post-traumatic stress disorder, unspecified (F43.10) Active confirmed Problem Migraine without aura, not refractory (disorder) (757197708) Migraine, unspecified, not intractable, without status migrainosus (G43.909) Active confirmed Problem Transient ischemic attack (247872025) Transient cerebral ischemic attack, unspecified (G45.9) Active confirmed Problem Insomnia (764263885) Insomnia, unspecified (G47.00) Active confirmed Problem Vertiginous syndrome (38370915) Unspecified disorder of vestibular function, unspecified ear (H81.90) Active confirmed Problem Essential hypertension (39353637) Essential (primary) hypertension (I10) Active confirmed Problem Gastro-esophageal reflux disease without esophagitis (218427257) Gastro-esophageal reflux disease without esophagitis (K21.9) Active confirmed Problem Cholelithiasis without obstruction (02120560) Other cholelithiasis without obstruction (K80.80) Active confirmed Problem Osteoarthritis (446977470) Unspecified osteoarthritis, unspecified site (M19.90) Active confirmed Problem Backache (035772734) Dorsalgia, unspecified (M54.9) Active confirmed Problem Excessive and frequent menstruation (895485697) Excessive and frequent menstruation with regular cycle (N92.0) Active confirmed Problem Abnormal uterine bleeding (52561900720483) Abnormal uterine and vaginal bleeding, unspecified (N93.9) Active confirmed Problem Abnormal gait (17445114) Unspecified abnormalities of gait and mobility (R26.9) Active confirmed Problem Long-term current use of insulin (337888894) 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 (Z79.4) Active confirmed Problem Essential hypertension (67420487) HTN (hypertension), benign (I10) Active confirmed Problem Anemia (731293415) Anemia, unspecified type (D64.9) Active confirmed Problem Menstrual periods irregular (62763469) Menstrual periods irregular (N92.6) Active confirmed Vital Signs Heart Rate 75 /min 01/11/2025 Temperature 98.9 degrees Fahrenheit 01/11/2025 Oximetry 98 % 01/11/2025 Blood pressure diastolic 72 mm Hg 01/11/2025 Height 64 in 01/11/2025 Blood pressure systolic 110 mm Hg 01/11/2025 Weight 185.7 lbs 01/11/2025 BMI 31.87 kg/m2 01/11/2025 Encounters Encounter Location Date Provider Diagnosis [address] [place] [address] 02/03/[address] [place] [address] 03/03/[address] [place] [address] 03/17/[address] [place] [address] 05/05/2024 PRICE GUL [facility] [address] [place] [address] 07/12/2024 PRICE L [facility] [address] [place] [address] 07/17/2024 PRICE L [facility] [address] [place] [address] 07/18/2024 Ghadeer Thaloum Other cholelithiasis without obstruction K80.80 [facility] [address] [facility] [address] [place] [address] 08/04/2024 PR[facility] [address] [facility] [address] [place] [address] 08/08/2024 PRICE GUL Other cholelithiasis without obstruction K80.80 [facility] [address] [place] [address] 08/18/2024 [facility] [address] [place] [address] 08/18/2024 Eladio Thaum [facility] [address] [facility] [address] [place] [address] 09/12/2024 PRICE GUL Other cholelithiasis without obstruction K80.80 [facility] [address] [place] [address] 09/14/2024 PRICE GUL Anemia, unspecified type D64.9 [facility] [address] [place] [address] 09/18/2024 PRICE [facility] [address] [facility] [address] [place] [address] 10/11/2024 [facility] [address] [place] [address] 10/16/2024 [facility] [address] [facility] [address] [place] [address] 10/19/2024 Eladio Thaclaudette [address] [place] [address] 11/03/2024 PRICE Neil [address] [place] [address] 11/03/[address] [place] [address] 01/02/2025 [facility] [place] [address] 01/15/2025 Eladio Garrett Migraine, unspecifie d, not intractable, without status migrainosus G43.[address] [place] [address] 01/28/2024 ALBERT MOJICA Excessive and freque nt menstruation with regular cycle N92.[address] [place] [address] 08/25/[address] [place] [address] 09/12/2024 Aroosa Alam Anemia, unspecified type D64.9 ; Annual physical exam Z00.00 ; Menstrual periods irregular N92.6 and Other cholelithiasis without obstruction K80.[address] [place] [address] 02/03/2024 PRICE SANAMNeil Helicobacter pylori [H. pylori] as the cause of diseases classified elsewhere B96.81 ; Leiomyoma of uterus, unspecified D25.9 ; Abnormal uterine and vaginal bleeding, unspecified N93.9 ; Generalized anxiety disorder F41.1 and Headache, unspecified R51.[address] [place] [address] 03/08/2024 Eladio Thaclaudette Diabetes mellitus du e to underlying condition with diabetic neuropathy, unspecified E08.40 ; Essential (primary) hypertension I10 ; Anemia, unspecified D64.9 ; Menstrual periods irregular N92.6 and Gastro-esophageal reflux disease without esophagitis K21.[address] [place] [address] 01/11/2025 Eladio Garrett Type 2 diabetes mellitus without complications E11.9 ; Anemia, unspecified type D64.9 ; Gastro-esophageal reflux disease without esophagitis K21.9 ; Post-traumatic stress disorder, unspecified F43.10 and Migraine, unspecified, not intractable, without status migrainosus G43.[address] [place] [address] 08/16/2024 ALBERT MOJICA [address] [place] [address] 08/15/2024 Eladio Garrett Pre-operative cleara nce Z01.818 ; Anemia, unspecified type D64.9 ; Menstrual periods irregular N92.6 and Other cholelithiasis without obstruction K80.[address] [place] [address] 07/12/2024 Eladio Garrett Other cholelithiasis without obstruction K80.80 ; Anemia, unspecified type D64.9 and Diabetes mellitus due to underlying condition with diabetic neuropathy, unspecified E08.[address] [place] [address] 10/13/2024 Eladio Garrett Diabetes mellitus du e to underlying condition with diabetic neuropathy, unspecified E08.40 ; Anemia, unspecified type D64.9 and Helicobacter pylori [H. pylori] as the cause of diseases classified elsewhere B96.[address] [place] [address] 11/03/2024 Eladio Garrett Type 2 diabetes mellitus without complications E11.9 ; Anemia, unspecified type D64.9 ; Gastro-esophageal reflux disease without esophagitis K21.9 and Post-traumatic stress disorder, unspecified F43.[address] [place] [address] 12/25/2024 ALBERT MOJICA Cough, unspecified R05.9 and Pain in right knee M25.561 [facility] [address] [facility] [address] [place] [address] 05/05/2024 ALBERT MOJICA Assessments Encounter Date Diagnosis (ICD Code) Assessment Notes Treatment Notes Treatment Clinical Notes Section Notes 07/12/2024 Other cholelithiasis without obstruction (ICD-10 - K80.80) Mrs. Marlow is a 48-year-old female Indonesian-speaking patient with type 2 diabetes mellitus and multiple psych issues here for abdominal pain. Two days ago, she went to [facility] for recurrent abdominal pain. Ultrasound of [...] transfusion. Otherwise, she will be referred to company pilot. I have rendered the services for this patient under direct supervision of Dr. Mojica, who did not see the patient but was available upon request 07/12/2024 Anemia, unspecified type (ICD-10 - D64.9) Mrs. Marlow is a 48-year-old female Indonesian-speaking patient with type 2 diabetes mellitus and multiple psych issues here for abdominal pain. Two days ago, she went to [facility] for recurrent abdominal pain. Ultrasound of [...] transfusion. Otherwise, she will be referred to company pilot. I have rendered the services for this patient under direct supervision of Dr. Mojica, who did not see the patient but was available upon request 07/18/2024 Other cholelithiasis without obstruction (ICD-10 - K80.80) 08/08/2024 Other cholelithiasis without obstruction (ICD-10 - K80.80) 08/15/2024 Pre-operative clearance (ICD-10 - Z01.818) Mrs. Marlow is a 49-year-old female Indonesian-speaking patient with type 2 diabetes mellitus and [...] Z00.00) Mrs. Marlow is a 49-year-old female Indonesian-speaking patient with type 2 diabetes mellitus anxiety [...] D64.9) Mrs. Marlow is a 49-year-old female Indonesian-speaking patient with type 2 diabetes mellitus anxiety [...] vaccination she does not want tdap either 10/13/2024 Diabetes mellitus due to underlying condition with diabetic neuropathy, unspecified (ICD-10 - E08.40) Mrs. Marlow is a 49-year-old female Indonesian-speaking patient with type 2 diabetes mellitus anxiety, depression, history of H pylori currently on abx treatment is here for fluctuating glucose. Plan as follows: T2DM: - Recent A1c of 7.0. She is currently on lantus 25units. Advised on consuming frequent small meals during the day to avoid hypoglycemia. However, if she experiences hypoglycemia at night then consider eating a meal or snack before sleep. Consider decreasinglantus 2-3 units. Consider glucose tabs, rx given today. Rule 15/15 explained. glucose should be above 70. - Resumed patient on Humalog. Sliding scale has been discussed. Postprandial glucose to be below 180. - She would like to establish care with office associate. Referred pt. Anemia: - Iron is currently on hold. She has a follow-up with Dr. Barrow next week for further workup. Hypylori; - She is currently on triple therapy. She has a follow-up with GI. I have rendered the services for this patient under direct supervision of Dr. Mojica, who did not see the patient but was available upon request 10/13/2024 Anemia, unspecified type (ICD-10 - D64.9) Mrs. Marlow is a 49-year-old female Indonesian-speaking patient with type 2 diabetes mellitus anxiety, depression, history of H pylori currently on abx treatment is here for fluctuating glucose. Plan as follows: T2DM: - Recent A1c of 7.0. She is currently on lantus 25units. Advised on consuming frequent small meals during the day to avoid hypoglycemia. However, if she experiences hypoglycemia at night then consider eating a meal or snack before sleep. Consider decreasinglantus 2-3 units. Consider glucose tabs, rx given today. Rule 15/15 explained. glucose should be above 70. - Resumed patient on Humalog. Sliding scale has been discussed. Postprandial glucose to be below 180. - She would like to establish care with office associate. Referred pt. Anemia: - Iron is currently on hold. She has a follow-up with Dr. Barrow next week for further workup. Hypylori; - She is currently on triple therapy. She has a follow-up with GI. I have rendered the services for this patient under direct supervision of Dr. Mojica, who did not see the patient but was available upon request 11/03/2024 Type 2 diabetes mellitus without complications (ICD-10 - E11.9) Mrs. Marlow is a 49-year-old female Indonesian-speaking patient with type 2 diabetes mellitus anxiety, depression, history of H pylori is here for follow-up. Plan as follows: T2DM: - She is currently following with office associate at [facility]. Glipizide has been recently added to [...] 6-12 months. - She follows with [facility]. She has an elective cholecystectomy surgery coming up at [facility]. PTSD: - referred patient to psychiatry I have rendered the services for this patient under direct supervision of Dr. Mojica, who did not see the patient but was available upon request 09/12/2024 Other cholelithiasis without obstruction (ICD-10 - K80.80) 09/14/2024 Anemia, unspecified type (ICD-10 - D64.9) 12/25/2024 Pain in right knee (ICD-10 - M25.561) Mrs. Marlow is a 49-year-old female Indonesian-speaking patient with type 2 diabetes mellitus anxiety, depression, history of H pylori is here for follow-up. She states that recently was seen by Dr. Jones for iron transfusion. She complains of right knee joint pain and cough. Plan is as follows Cough. Most likely viral. She has upcoming cholecystectomy at [facility]. We will do chest x-ray to rule out any underlying pathology.meanwhile she can continue Tessalon Perles and appropriate hydration. Pain right knee joint. Osteoarthritis, tendinitis. Will do x-ray and continue ibuprofen along with Tylenol and recommended weight loss. once we have the results of the x-ray we will decide on further disposition 12/25/2024 Cough, unspecified (ICD-10 - R05.9) Mrs. Marlow is a 49-year-old female Indonesian-speaking patient with type 2 diabetes mellitus anxiety, depression, history of H pylori is here for follow-up. She states that recently was seen by Dr. Jones for iron transfusion. She complains of right knee joint pain and cough. Plan is as follows Cough. Most likely viral. She has upcoming cholecystectomy at [facility]. We will do chest x-ray to rule out any underlying pathology.meanwhile she can continue Tessalon Perles and appropriate hydration. Pain right knee joint. Osteoarthritis, tendinitis. Will do x-ray and continue ibuprofen along with Tylenol and recommended weight loss. once we have the results of the x-ray we will decide on further disposition 01/11/2025 Type 2 diabetes mellitus without complications (ICD-10 - E11.9) Mrs. Marlow is a 49-year-old female Indonesian-speaking patient with type 2 diabetes mellitus anxiety, depression, history of H pylori is here for follow-up. Plan as follows: T2DM: - She is currently following with office associate at [facility]. Glipizide has been recently added to [...] 6-12 months. - She follows with [facility]. She has an elective cholecystectomy surgery coming up at [facility]. PTSD: - referred patient to psychiatry [...] the patient but was available upon request 01/15/2025 Migraine, unspecified, not intractable, without status migrainosus (ICD-10 - G43.909) 02/03/2024 Helicobacter pylori [H. pylori] as the cause of diseases classified elsewhere (ICD-10 - B96.81) Mrs. Marlow is a 48-year-old female Indonesian speaking patient with type 2 diabetes mellitus and multiple psych issues here for follow up. She was recently diagnosed with H. pylori. She was not feeling well and had menorrhagia and she went to [facility]. She had CT abdomen and pelvis which showed fibroid and thickening of the uterus.Plan is as follows: H. pylori infection. She is currently on antibiotics for 2 weeks and then she will have a follow-up with GI for urea breath test Menorrhagia. She saw her skin diving teacher and had a biopsy done and will [...] this note under HIPAA compliance and under [place] law mandated for scribe services. Patient aware of service. Verbal consent and written consent taken from the patient. Patient understands and verbalizes understanding of the scribes services and all questions answered regarding scribes services. Patient agrees to use of scribes services. 02/03/2024 Leiomyoma of uterus, unspecified (ICD-10 - D25.9) Mrs. Marlow is a 48-year-old female Indonesian speaking patient with type 2 diabetes mellitus and multiple psych issues here for follow up. She was recently diagnosed with H. pylori. She was not feeling well and had menorrhagia and she went to [facility]. She had CT abdomen and pelvis which showed fibroid and thickening of the uterus.Plan is as follows: H. pylori infection. She is currently on antibiotics for 2 weeks and then she will have a follow-up with GI for urea breath test Menorrhagia. She saw her skin diving teacher and had a biopsy done and will [...] this note under HIPAA compliance and under [place] law mandated for scribe services. Patient aware of service. Verbal consent and written consent taken from the patient. Patient understands and verbalizes understanding of the scribes services and all questions answered regarding scribes services. Patient agrees to use of scribes services. 03/08/2024 Diabetes mellitus due to underlying condition with diabetic neuropathy, unspecified (ICD-10 - E08.40) Mrs. Marlow is a 48-year-old female Indonesian-speaking patient with type 2 diabetes mellitus and [...] antibiotic course. Recently seen by GI at [facility] with LISA Whitfield on February 22. She [...] I10) Mrs. Marlow is a 48-year-old female Indonesian-speaking patient with type 2 diabetes mellitus and [...] antibiotic course. Recently seen by GI at [facility] with LISA Whitfield on February 22. She [...] with the above mentioned assessment and plan 01/28/2024 Excessive and frequent menstruation with regular cycle (ICD-10 - N92.0) 03/08/2024 Anemia, unspecified (ICD-10 - D64.9) Mrs. Marlow is a 48-year-old female Indonesian-speaking patient with type 2 diabetes mellitus and [...] antibiotic course. Recently seen by GI at [facility] with LISA Whitfield on February 22. She [...] the above mentioned assessment and plan 02/03/2024 Abnormal uterine and vaginal bleeding, unspecified (ICD-10 - N93.9) Mrs. Marlow is a 48-year-old female Indonesian speaking patient with type 2 diabetes mellitus and multiple psych issues here for follow up. She was recently diagnosed with H. pylori. She was not feeling well and had menorrhagia and she went to [facility]. She had CT abdomen and pelvis which showed fibroid and thickening of the uterus.Plan is as follows: H. pylori infection. She is currently on antibiotics for 2 weeks and then she will have a follow-up with GI for urea breath test Menorrhagia. She saw her skin diving teacher and had a biopsy done and will [...] this note under HIPAA compliance and under [place] law mandated for scribe services. Patient aware of service. Verbal consent and written consent taken from the patient. Patient understands and verbalizes understanding of the scribes services and all questions answered regarding scribes services. Patient agrees to use of scribes services. 01/11/2025 Anemia, unspecified type (ICD-10 - D64.9) Mrs. Marlow is a 49-year-old female Indonesian-speaking patient with type 2 diabetes mellitus anxiety, depression, history of H pylori is here for follow-up. Plan as follows: T2DM: - She is currently following with office associate at [facility]. Glipizide has been recently added to [...] 6-12 months. - She follows with [facility] She has an elective cholecystectomy surgery coming up at [facility]. PTSD: - referred patient to psychiatry [...] the patient but was available upon request 10/13/2024 Helicobacter pylori [H. pylori] as the cause of diseases classified elsewhere (ICD-10 - B96.81) Mrs. Marlow is a 49-year-old female Indonesian-speaking patient with type 2 diabetes mellitus anxiety, depression, history of H pylori currently on abx treatment is here for fluctuating glucose. Plan as follows: T2DM: - Recent A1c of 7.0. She is currently on lantus 25units. Advised on consuming frequent small meals during the day to avoid hypoglycemia. However, if she experiences hypoglycemia at night then consider eating a meal or snack before sleep. Consider decreasinglantus 2-3 units. Consider glucose tabs, rx given today. Rule 15/15 explained. glucose should be above 70. - Resumed patient on Humalog. Sliding scale has been discussed. Postprandial glucose to be below 180. - She would like to establish care with office associate. Referred pt. Anemia: - Iron is currently on hold. She has a follow-up with Dr. Barrow next week for further workup. Hypylori; - She is currently on triple therapy. She has a follow-up with GI. I have rendered the services for this patient under direct supervision of Dr. Mojica, who did not see the patient but was available upon request 11/03/2024 Anemia, unspecified type (ICD-10 - D64.9) Mrs. Marlow is a 49-year-old female Indonesian-speaking patient with type 2 diabetes mellitus anxiety, depression, history of H pylori is here for follow-up. Plan as follows: T2DM: - She is currently following with office associate at [facility]. Glipizide has been recently added to [...] 6-12 months. - She follows with [facility]. She has an elective cholecystectomy surgery coming up at [facility]. PTSD: - referred patient to psychiatry I have rendered the services for this patient under direct supervision of Dr. Mojica, who did not see the patient but was available upon request 09/12/2024 Menstrual periods irregular (ICD-10 - N92.6) Mrs. Marlow is a 49-year-old female Indonesian-speaking patient with type 2 diabetes mellitus anxiety [...] E08.40) Mrs. Marlow is a 48-year-old female Indonesian-speaking patient with type 2 diabetes mellitus and multiple psych issues here for abdominal pain. Two days ago, she went to [facility] for recurrent abdominal pain. Ultrasound of [...] transfusion. Otherwise, she will be referred to company pilot. I have rendered the services for this patient under direct supervision of Dr. Mojica, who did not see the patient but was available upon request 08/15/2024 Anemia, unspecified type (ICD-10 - D64.9) Mrs. Marlow is a 49-year-old female Indonesian-speaking patient with type 2 diabetes mellitus and [...] patient but was available upon request 08/15/2024 Menstrual periods irregular (ICD-10 - N92.6) Mrs. Marlow is a 49-year-old female Indonesian-speaking patient with type 2 diabetes mellitus and [...] K80.80) Mrs. Marlow is a 49-year-old female Indonesian-speaking patient with type 2 diabetes mellitus anxiety [...] vaccination she does not want tdap either 11/03/2024 Gastro-esophageal reflux disease without esophagitis (ICD-10 - K21.9) Mrs. Marlow is a 49-year-old female Indonesian-speaking patient with type 2 diabetes mellitus anxiety, depression, history of H pylori is here for follow-up. Plan as follows: T2DM: - She is currently following with office associate at [facility]. Glipizide has been recently added to [...] in 6-12 months. - She follows with [facility]. She has an elective cholecystectomy surgery coming up at [facility]. PTSD: - referred patient to psychiatry I have rendered the services for this patient under direct supervision of Dr. Mojica, who did not see the patient but was available upon request 01/11/2025 Gastro-esophageal reflux disease without esophagitis (ICD-10 - K21.9) Mrs. Marlow is a 49-year-old female Indonesian-speaking patient with type 2 diabetes mellitus anxiety, depression, history of H pylori is here for follow-up. Plan as follows: T2DM: - She is currently following with office associate at [facility]. Glipizide has been recently added to [...] in 6-12 months. - She follows with [facility]. She has an elective cholecystectomy surgery coming up at [facility]. PTSD: - referred patient to psychiatry [...] patient but was available upon request 02/03/2024 Generalized anxiety disorder (ICD-10 - F41.1) Mrs. Marlow is a 48-year-old female Indonesian speaking patient with type 2 diabetes mellitus and multiple psych issues here for follow up. She was recently diagnosed with H. pylori. She was not feeling well and had menorrhagia and she went to [facility]. She had CT abdomen and pelvis which showed fibroid and thickening of the uterus.Plan is as follows: H. pylori infection. She is currently on antibiotics for 2 weeks and then she will have a follow-up with GI for urea breath test Menorrhagia. She saw her skin diving teacher and had a biopsy done and will [...] this note under HIPAA compliance and under [place] law mandated for scribe services. Patient aware of service. Verbal consent and written consent taken from the patient. Patient understands and verbalizes understanding of the scribes services and all questions answered regarding scribes services. Patient agrees to use of scribes services. 03/08/2024 Menstrual periods irregular (ICD-10 - N92.6) Mrs. Marlow is a 48-year-old female Indonesian-speaking patient with type 2 diabetes mellitus and [...] antibiotic course. Recently seen by GI at [facility] with LISA Whitfield on February 22. She [...] the above mentioned assessment and plan 03/08/2024 Gastro-esophageal reflux disease without esophagitis (ICD-10 - K21.9) Mrs. Marlow is a 48-year-old female Indonesian-speaking patient with type 2 diabetes mellitus and [...] antibiotic course. Recently seen by GI at [facility] with LISA Whitfield on February 22. She [...] R51.9) Mrs. Marlow is a 48-year-old female Indonesian speaking patient with type 2 diabetes mellitus and multiple psych issues here for follow up. She was recently diagnosed with H. pylori. She was not feeling well and had menorrhagia and she went to [facility]. She had CT abdomen and pelvis which showed fibroid and thickening of the uterus.Plan is as follows: H. pylori infection. She is currently on antibiotics for 2 weeks and then she will have a follow-up with GI for urea breath test Menorrhagia. She saw her skin diving teacher and had a biopsy done and will [...] this note under HIPAA compliance and under [place] law mandated for scribe services. Patient aware of service. Verbal consent and written consent taken from the patient. Patient understands and verbalizes understanding of the scribes services and all questions answered regarding scribes services. Patient agrees to use of scribes services. 01/11/2025 Post-traumatic stress disorder, unspecified (ICD-10 - F43.10) Mrs. Marlow is a 49-year-old female Indonesian-speaking patient with type 2 diabetes mellitus anxiety, depression, history of H pylori is here for follow-up. Plan as follows: T2DM: - She is currently following with office associate at [facility]. Glipizide has been recently added to [...] in 6-12 months. - She follows with [facility]. She has an elective cholecystectomy surgery coming up at [facility]. PTSD: - referred patient to psychiatry [...] the patient but was available upon request 11/03/2024 Post-traumatic stress disorder, unspecified (ICD-10 - F43.10) Mrs. Marlow is a 49-year-old female Indonesian-speaking patient with type 2 diabetes mellitus anxiety, depression, history of H pylori is here for follow-up. Plan as follows: T2DM: - She is currently following with office associate at [facility]. Glipizide has been recently added to [...] in 6-12 months. - She follows with [facility]. She has an elective cholecystectomy surgery coming up at [facility]. PTSD: - referred patient to psychiatry I have rendered the services for this patient under direct supervision of Dr. Mojica, who did not see the patient but was available upon request 08/15/2024 Other cholelithiasis without obstruction (ICD-10 - K80.80) Mrs. Marlow is a 49-year-old female Indonesian-speaking patient with type 2 diabetes mellitus and [...] G43.909) Mrs. Marlow is a 49-year-old female Indonesian-speaking patient with type 2 diabetes mellitus anxiety, depression, history of H pylori is here for follow-up. Plan as follows: T2DM: - She is currently following with office associate at [facility]. Glipizide has been recently added to [...] 6-12 months. - She follows with [facility]. She has an elective cholecystectomy surgery coming up at [facility]. PTSD: - referred patient to psychiatry [...] was available upon request Plan Of Treatment Pending Test Test Name Order Date MRI : Brain 02/03/2024 Chest X-ray PA and lateral 12/25/2024 Comp. Metabolic Panel (14) 03/08/2024 MRI : Brain without Contrast 02/07/2024 COMPREHENSIVE METABOLIC PANEL 09/30/2022 H. PYLORI ANTIGEN, STOOL 11/27/2019 HEMOGLOBIN A1C 06/05/2022 HEMOGLOBIN A1C WITH EST GLUCOSE 09/30/19 23 HEMOGLOBIN A1C WITH EST GLUCOSE 01/29/20 23 TSH WITH REFLEX TO FT4 09/30/2022 Mammo: Diagnostic Mammogram Bilateral Xray: Knee Right (Standard, 4 Views) CBC/Differential (No Platelet)-[id number] CBC/Differential (No Platelet)-[id number] Albumin/Creatinine Ratio,Urine-[id number] Comp. Metabolic Panel (14)-[id number] 2024 A1c w/GlycoMark(R) Reflex-[id number] Future Test Test Name Order Date Iron and TIBC-[id number] 11/03/2024 Ferritin-[id number] 11/03/2024 CBC/Differential (No Platelet)-[id number] Next Appt Details Provider Name:Eladio multani, 03/14/2025 11:00:00 AM, [address] [place] [address], [phone], Provider Name:Eladio multani, 07/13/2025 10:30:00 AM, [address] [place] [address], [phone], Insurance Providers Payer Name Payer Address Payer Phone Subscriber Number Group Number Insured Name Patient Relationship to Insured Coverage Start Date Coverage End Date [facility]) [address] [address] [place] [phone] [id number] Ele Valencia Self - patient is the insured Medical (General) History Medical History History ICD Code Insulin-dependent DM type II and she see Lisette Bruce [employer] OFFICER Hypertension Insomnia Generalized anxiety disorder And see Dr Shannon Mcginnis PTSD Diabetic neuropathy Osteoarthritis Acid reflux Asthma Pseudobulbar disorder Surgical History Surgery Date(Month/Year) cholecystectomy 2024 Hospitalization History Reason Date(Month/Year) confused on meds as she lost her [employer]AN
--- OUTSIDE RECORDS SUMMARY | 2025-01-22 15:55 | XMS_ITS ---
Author Organization [facility] Address [address] [place] [address] Care Team Providers Care Licensed Sales Assistant Name Role Phone ALBERT MOJICA Primary Care Provider Eladio Garrett Unavailable [phone] REASON FOR VISIT Glucose tab PA Denial Encounters Encounter Location Date Provider Diagnosis [facility] [address] [address] 01/02/2025 Eladio Garrett Plan Of Treatment Next Appt Details Provider Name:Eladio multani, 03/14/2025 11:00:00 AM, [address] [place] [address], [phone], Provider Name:Sheilaantonia Almazanjeremiah multani, 07/13/2025 10:30:00 AM, [address] [place] [address], [phone], Progress Notes * Ele DEL VALLEDOB:1975 ( 49 yo F)Acc No.[id number]:01/02/2025 Patient:?Ele DEL VALLE :1975???Age:49 Y???Sex:Female Address:[place] [address] * true * Date:? Generated for Printi ng/Faxing/eTransmitting on:?01/22/2025 03:55 PM EDT
--- OUTSIDE RECORDS SUMMARY | 2025-01-22 15:55 | XMS_ITS | Clinical Summary ---
Author Organization [facility] Address [address] [place] [address] Phone Care Team Providers Care Tin Cutter Name Role Phone Yarely Mojica MD Primary Care Provider [phone] Allergies No known active allergies Medications aspirin [...] 04/08/2022 Class 2 obesity 04/08/2022 Diabetic neuropathy ([facility] V24, [facility] V28) 0 04/08/2022 Essential hypertension 04/08/2022 Gastro-esophageal reflux disease without esophag itis 04/08/2022 Generalized anxiety disorder 04/08/2022 Insomnia 04/08/2022 Iron deficiency anemia 04/08/2022 Moderate recurrent major dep ression ([facility] V24, [facility] V28) 04/08/2022 Osteoarthrosis 04/08/2022 Transient ischemic attack 04/08/2022 Post-traumatic stress disorder 04/08/2022 Severe obesity (BMI >= 40) ([facility] V24, [facility] V28) 04/08/2022 Overview (08/17/2024): Body mass index (BMI) greater than 40 Encounters Date Type Department Care Team Description 10/31/2024 2:00 PM EST - 10/31/2024 11:59 PM EST Hospital Encounter [facility] [address] [place] [phone] Chi Barrow MD Iron deficiency anemia due to chronic blood loss (Primary Dx) Discharge Disposition: Home or Self Care from Last 3 Months Surgical History Surgery Date Site/Laterality Comments SECTION PROCEDURE: HISTORICAL Medical History Medical History Date Comments Diabetes mellitus type 2, co ntrolled, with complications ([facility] V24, [facility] V28) DX:Diabetes mellitus type 2, controlled, with [...] Procedure Name Priority Date/Time Associated Diagnosis Comments [facility] SCREENING DIGITAL Routine 05/07/2022 8:06 AM EDT Encounter for screening mammogram for malignant neoplasm of breast from Last 3 Months or Most Recently Relevant to Health Maintenance Results * [facility] SCREENING DIGITAL (05/07/2022 8:06 AM EDT) Anatomical Region Laterality Modality Mammography 05/04/2022 2:48 PM EDT Narrative 05/07/2022 8:06 AM EDT [facility] Diagnostic Imaging Department [address] [place], [place] [id number] Patient: ??ABBAS,AKBAL ?/Age/Sex: 1975 - 47 - F Unit#: ??[id number] ? Location/Status: ??SPDIMAM/REG CLI ? Mnemonic/Ordering Site: ??DIGSC/SPMAM Ordering Physician: ??YARELY MOJICA MD Dada Screening Digital - 05/04/22 - 1523 EXAM: Dada Screening Digital EXAM DATE AND TIME: 05/04/2022 3:24 PM HISTORY: ??Screening. COMPARISON: ??05/03/14 outside study TECHNIQUE: CC and MLO views of both breasts were obtained using full field digital mammography. Bilateral digital breast tomosynthesis was performed in the MLO projection. Computer aided detection with the Localisto 7.2-H was employed. TISSUE DENSITY: c. The [...] recall) RECOMMENDATION(S): 1: Repeat film(s) needed LEFT 51928, 17587 3340F, 7025F Dictating Physician: ??ELIAN HERNANDEZ MD Electronically Signed by: ??ELIAN HERNANDEZ MD Dic Date/Time: ??05/07/22803 Sign date/Time: ??05/07/22 08 Procedure Note Elian Hernandez MD - 09/16/2022 [facility] Diagnostic Imaging Department [address] [place] [id number] Patient: ELE DEL VALLE /Age/Sex: 1975 - 47 - F Unit#: [id number] Location/Status: SPDIMAM/REG CLI Mnemonic/Ordering Site: [facility] Ordering Physician: YARELY MOJICA MD Dada Screening Digital - 05/04/22 - 1523 EXAM: [facility] Screening Digital EXAM DATE AND TIME: 05/04/2022 3:24 PM HISTORY: Screening. COMPARISON: 05/03/14 outside study TECHNIQUE: CC and MLO views of both breasts were obtained using fullfield digital mammography. Bilateral digital breast tomosynthesis was performedin the MLO projection. Computer aided detection with the Localisto 7.2-Retora Blackas employed. TISSUE DENSITY: c. The breasts are [...] recall) RECOMMENDATION(S): 1: Repeat film(s) needed LEFT 70725, 03566 3340F, 7025F Dictating Physician: ELIAN HERNANDEZ MD Electronically Signed by: ELIAN HERNANDEZ MD Dic Date/Time: 05/07/22803 Sign date/Time: 05/07/22805 Yarely Mojica MD IMG BI PROCEDURES Final Result from Last 3 Months or Most Recently Relevant to Health Maintenance Insurance [facility] [employer] Care Teams Tin Cutter Relationship Specialty Start Date End Date Yarely Mojica MD [address] [place] [address] PCP - General Internal Medicine 03/05/22
== END 2025-01-22 14:18 | disposition home or self-care (01) ==
LOC: HO.HGI 13:24
PROVIDERS: PCP Hospitalist; Visit Provider Nurse Practitioner Family
DX: Z90.49 Acquired absence of other specified parts of digestive tract (principal); K21.9 Gastro-esophageal reflux disease without esophagitis; R10.13 Epigastric pain; R14.0 Abdominal distension (gaseous); K58.1 Irritable bowel syndrome with constipation; A04.8 Other specified bacterial intestinal infections
CPT/HCPCS: 99214; G2211

== ENCOUNTER → 2025-01-22 13:24 | Outpatient (BNVA) | payer OTHER, SELFPAY | PROVIDERS: PCP Hospitalist; Visit Provider Nurse Practitioner Family | DX: K21.9 Gastro-esophageal reflux disease without esophagitis (principal); K58.1 Irritable bowel syndrome with constipation; R10.13 Epigastric pain; R14.0 Abdominal distension (gaseous); A04.8 Other specified bacterial intestinal infections; Z90.49 Acquired absence of other specified parts of digestive tract | CPT/HCPCS: 99212 ==

== ENCOUNTER 2025-02-07 12:04 | Outpatient (REF) | payer OTHER, SELFPAY ==
--- OUTSIDE RECORDS SUMMARY | 2025-02-09 11:54 | XMS_ITS | Clinical Summary ---
Author Organization [facility] Address [address] [place] [address] Care Team Providers Care Addictions Therapist Name Role Phone Unavailable Primary Care Provider [...] complication, with long-term current use of insulin ([facility]) Take 1,000 mg by mouth 2 (two) times daily Per Endo 1 7 Active ADITYA PEN NEEDLE 32 gauge x 32 ndleIndications:T ype 2 diabetes mellitus without complication, with long-term current use of insulin ([facility]) Per Endo 0 7 Active ONGLYZA 5 mg tabletIndications :Type 2 diabetes mellitus without complication, with long-term current use of insulin ([facility]) Take by mouth once daily Per Endo 0 7 Active insulin glargine (LANTUS) 100 unit/mL injectionIndicati ons:Type 2 diabetes mellitus without complication, with long-term current use of insulin ([facility]) Per Endo 10 mL 7 Active canagliflozin (INVOKANA) 100 mg tabIndications:Ty pe 2 diabetes mellitus without complication, with long-term current use of insulin ([facility]) Take by mouth 7 Active betamethasone dipropionate [...] mcg/actuation inhalerIndication s:Mild intermittent asthma without complication ([facility]) Inhale 2 Puffs into the lungs every [...] 11/05/2018 Overview (07/02/2019): 09/29/18 - Seen at [place] [facility] c/o left sided chest pain x [...] (01/25/2017): Due to menorrhagia Mild intermittent asthma ([facility]) 01/25/2017 Type 2 diabetes mellitus without complication Overview (06/26/2019): F/U [facility] Endo 03/25/18 - Endo F/U. HgA1c 8.8%. [...] Diagnosed Date Resolved Date Diabetic eye exam ([facility]) 11/17/2016 08/03/2018 Overview (11/17/2016): Per [...] Plan of Treatment Not on file Insurance [facility] [employer] [facility] [employer]
--- OUTSIDE RECORDS SUMMARY | 2025-02-09 11:54 | XMS_ITS | Patient Health Record ---
Author Organization [facility] Address [address] [place] [address] Care Team Providers Care Recep Name Role Phone ALBERT MOJICA Primary Care Provider [phone] YeseniaCliff multaniphylicia Unavailable [phone] UvaldoArsen maloneysumeet Unavailable [phone] Allergies Allergen (clinical drug ingredient) Drug/Non Drug Allergy documented on EMR Reaction Allergy Type Onset Date Status dulaglutide Trulicity nausea/headache Drug Allergy Active Results Component Value Reference Range Notes Comp. Metabolic Panel (14)-3 21111 Reviewed date:10/19/2024 02:29:35 PM Interpretation: Performing Lab:[facility], [address] [facility], [place], Phone - [phone], Director - Lissette Notes/Report: Glucose 133 70-99 mg/dL BUN 8 [...] IU/L ALT (SGPT) 9 0-32 IU/L Hemoglobin [id number] Reviewed date:10/19/2024 02:31:00 PM Interpretation: [facility], [address] [place] [address], [place], Phone - [phone], Director - Lissette Notes/Report: Hemoglobin A1c 7.5 4.8-5.6 % . Prediabetes: 5.7 - 6.4 Diabetes: >6.4 Glycemic control for adults with diabetes: <7.0 Rell Donaldson CMP14 Default A hand-written panel/profile was received from your office. In accordance with the [facility] Ambiguous Test Code Policy dated March 2003, we have completed your order by using the closest currently or formerly recognized AMA panel. We have assigned Comprehensive Metabolic Panel (14), Test Code #623826 to this request. If this is not the testing you wished to receive on this specimen, please contact the [facility] Client Inquiry/Technical Services Department to clarify the test order. We appreciate your business. CBC With Differential/Platel et-[id number] Reviewed date:07/18/2024 10:47:00 PM Interpretation: [facility]forming [facility], [address] [place] [address], [place], Phone - [phone], Director - Lissette Notes/Report: WBC 12.9 3.4-10.8 [...] % Immature Grans (Abs) 0.1 0.0-0.1 x10E3/uL Ferritin-[id number] Reviewed date:07/18/2024 01:54:35 PM Interpretation: Performing [facility], [address] [place] [address], Phone - [phone], [facility] Notes/Report: Ferritin 8 15-150 ng/mL Iron and TIBC-[id number] Reviewed date:07/18/2024 01:55:05 PM Interpretation: Performing Lab:[facility] [place], [address] [place] [address], Phone - [phone], Director - MDJodry Notes/Report: Iron Bind.Cap.(TIBC) 385 250-450 ug/dL UIBC 329 131-425 ug/dL Iron 56 27-159 ug/dL Iron Saturation 15 15-55 % CBC With Differential/Platel et-[id number] Reviewed date:02/17/2024 03:26:04 PM Interpretation: Performing Lab:[facility] [place], [address] [place] [address], Phone - [phone], Director - MDJodry Notes/Report: WBC 11.9 3.4-10.8 [...] % Immature Grans (Abs) 0.0 0.0-0.1 x10E3/uL [id number] Reviewed date:02/16/2024 07:49:03 AM Interpretation: Performing Lab:[facility] [place], [address] [place] [address], Phone - [phone], Director - MDdry Notes/Report: Ferritin 10 15-150 ng/mL Iron-[id number] Reviewed date:02/16/2024 07:49:05 AM Interpretation: Performing Lab:[facility] [place], [address] [place] [address], Phone - [phone], Director - MDJodry Notes/Report: Iron 15 27-159 ug/dL Comp. Metabolic Panel (14)-3 Reviewed date:08/18/2024 11:12:10 AM Interpretation: Performing Lab:[facility] [place], [address] [place] [address], Phone - [phone], Director - MDJodry Notes/Report: Glucose 144 70-99 [...] IU/L ALT (SGPT) 11 0-32 IU/L Hemoglobin [id number] Reviewed date:08/18/2024 11:01:17 AM Interpretation: Performing Lab:[facility] [address], Phone - [phone], Director - MDJodry Notes/Report: Hemoglobin A1c 7.0 4.8-5.6 % . Prediabetes: 5.7 - 6.4 Diabetes: >6.4 Glycemic control for adults with diabetes: <7.0 CBC With Differential/Platel et-[id number] Reviewed date:08/18/2024 11:13:49 AM Interpretation: Performing Lab:[facility], [address], [place], Phone - [phone], Director - Lissette Notes/Report: WBC 12.4 3.4-10.8 x10E3/uL Effective August 28, 2024 profile [id number] WBC will be made non-orderable as a [...] 0.0 0.0-0.1 x10E3/uL Reason For Referral Reason Evaluation and manag ement Diagnosis 1 Other cholelithiasis without obstruction (K80.80) Referral Organization [facility] Referring Provider First Name Eladio Referring Provider Last Name Tami Referred Provider Specialty Gastrointest inal surgeon General Notes Referral sent to [facility] - Office will call pt for scheduling., Emilie Guerrier 07/13/2024 07:43:35 AM > Referral Priority Stat Reason Evaluation and manag ement Diagnosis 1 Iron deficiency anem ia, unspecified (D50.9) Referral Organization [facility] Referring Provider First Name [facility] Referring Provider Last Name [facility] Referred Provider Specialty Hematology General Notes Referral faxed to [facility] - Office will call patient for scheduling.Chey Emilie 07/14/2024 08:47:08 AM > Referral Priority Urgent Reason please evaluate and treat Diagnosis 1 Diabetes mellitus du e to underlying condition with diabetic neuropathy, unspecified (E08.40) Referral Organization [facility] Referring Provider First Name [facility] Referring Provider Last Name [facility] Referred Provider Specialty Endocrinolog y General Notes referral was faxed t o [facility]. Please contact patient for scheduling. Referral Priority Routine Reason please evaluate and treat Diagnosis 1 Post-traumatic stres s disorder, unspecified (F43.10) Referral Organization [facility] Referring Provider First Name [facility] Referring Provider Last Name [facility] Referred Provider Specialty Psychiatry General Notes referral was faxed t o Dr. Mann office. Please contact patient for scheduling., Elana Da Silva 11/03/2024 01:29:36 PM > Referral Priority Routine Reason Please evaluate and treat Diagnosis 1 Post-traumatic stres s disorder, unspecified (F43.10) Referral Organization [facility] Referring Provider First Name [facility] Referring Provider Last Name [facility] Referred Provider Specialty Psychiatry General Notes Please [...] Gabapentin 300 MG TAKE 1 CAPSULE BY [facility] THREE TIMES A DAY for 30 Active Nuedexta 20-10 MG 1 capsule Orally Twi ce a day Active metFORMIN HCl 1000 MG TAKE 1 TABLET BY M OUTH TWICE A DAY WITH MEALS for 90 Active Nitrostat 0.4 MG as directed Sublingual Active FreeStyle Sal 2 [place] - as directed Active Fish Oil 1000 [...] Orally once for 1 days 11/04/2023 Not-Taking [place] 3 1000 MG 3 capsules Orally On [...] W/U Status Risk Notes Problem Helicobacter pylori (68682230) Helicobacter pylori [H. 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) Active confirmed Problem Moderate recurrent major depression (59495406) Major depressive disorder, recurrent, moderate (F33.1) Active confirmed Problem Generalized anxiety disorder (69982305) Generalized anxiety disorder (F41.1) Active confirmed Problem Post-traumatic stress disorder (38088399) Post-traumatic stress disorder, unspecified (F43.10) Active confirmed Problem Migraine without aura, not refractory (disorder) (995786763) Migraine, unspecified, not intractable, without status migrainosus (G43.909) Active confirmed Problem Transient ischemic attack (345573551) Transient cerebral ischemic attack, unspecified (G45.9) Active confirmed Problem Insomnia (622183646) Insomnia, unspecified (G47.00) Active confirmed Problem Vertiginous syndrome (48007436) Unspecified disorder of vestibular function, unspecified ear (H81.90) Active confirmed Problem Essential hypertension (49012390) Essential (primary) hypertension (I10) Active confirmed Problem Gastro-esophageal reflux disease without esophagitis (757638939) Gastro-esophageal reflux disease without esophagitis (K21.9) Active confirmed Problem Cholelithiasis without obstruction (45336375) Other cholelithiasis without obstruction (K80.80) Active confirmed Problem Osteoarthritis (417964673) Unspecified osteoarthritis, unspecified site (M19.90) Active confirmed Problem Backache (629560035) Dorsalgia, unspecified (M54.9) Active confirmed Problem Excessive and frequent menstruation (598495970) Excessive and frequent menstruation with regular cycle (N92.0) Active confirmed Problem Abnormal uterine bleeding (38108987994504) Abnormal uterine and vaginal bleeding, unspecified (N93.9) Active confirmed Problem Abnormal gait (41022824) Unspecified abnormalities of gait and mobility (R26.9) Active confirmed Problem Long-term current use of insulin (504390765) FCI (current) use of insulin (Z79.4) Active confirmed Problem Essential hypertension (42554836) HTN (hypertension), benign (I10) Active confirmed Problem Anemia (248127664) Anemia, unspecified type (D64.9) Active confirmed Problem Menstrual periods irregular (88522675) Menstrual periods irregular (N92.6) Active confirmed Vital Signs Heart Rate 75 /min 01/11/2025 Temperature 98.9 degrees Fahrenheit 01/11/2025 Blood pressure diastolic 72 mm Hg 01/11/2025 Oximetry 98 % 01/11/2025 Height 64 in 01/11/2025 Blood pressure systolic 110 mm Hg 01/11/2025 Weight 185.7 lbs 01/11/2025 BMI 31.87 kg/m2 01/11/2025 Encounters Encounter Location Date Provider Diagnosis [address] [address] 03/08/2024 Eladio Garrett Diabetes mellitus du e to underlying condition with diabetic neuropathy, unspecified E08.40 ; Essential (primary) hypertension I10 ; Anemia, unspecified D64.9 ; Menstrual periods irregular N92.6 and Gastro-esophageal reflux disease without esophagitis K21.[address] [address] 05/05/2024 ALBERT MOJICA [address] [place] [address] 07/12/2024 Eladio Garrett Other cholelithiasis without obstruction K80.80 ; Anemia, unspecified type D64.9 and Diabetes mellitus due to underlying condition with diabetic neuropathy, unspecified E08.[address] [address] 08/15/2024 Eladio Garrett Pre-operative cleara nce Z01.818 ; Anemia, unspecified type D64.9 ; Menstrual periods irregular N92.6 and Other cholelithiasis without obstruction K80.[address] [place] [address] 08/16/2024 PRICE Neil [address] [place] [address] 09/12/2024 Aroosa Alam Anemia, unspecified type D64.9 ; Annual physical exam Z00.00 ; Menstrual periods irregular N92.6 and Other cholelithiasis without obstruction K80.[address] [address] 10/13/2024 Eladio Garrett Diabetes mellitus du e to underlying condition with diabetic neuropathy, unspecified E08.40 ; Anemia, unspecified type D64.9 and Helicobacter pylori [H. pylori] as the cause of diseases classified elsewhere B96.[address] [address] 11/03/2024 Eladio Garrett Type 2 diabetes mellitus without complications E11.9 ; Anemia, unspecified type D64.9 ; Gastro-esophageal reflux disease without esophagitis K21.9 and Post-traumatic stress disorder, unspecified F43.[address] [place] [address] 12/25/2024 ALBERT MOJICA Cough, unspecified R05.9 and Pain in right knee M25.[address] [address] 01/11/2025 Eladio Garrett Type 2 diabetes mellitus without complications E11.9 ; Anemia, unspecified type D64.9 ; Gastro-esophageal reflux disease without esophagitis K21.9 ; Post-traumatic stress disorder, unspecified F43.10 and Migraine, unspecified, not intractable, without status migrainosus G43.[address] [place] [address] 03/03/2024 PRICE [facility] [address] [place] [address] 03/17/2024 PRICE [facility] [address] [place] [address] 05/05/2024 PRICE [facility] [address] [place] [address] 07/12/2024 PRICE [facility] [address] [place] [address] 07/17/2024 [facility] [address] [place] [address] 07/18/2024 Ghadeer Mazloum Other cholelithiasis without obstruction K80.80 [facility] [address] [place] [address] 08/04/2024 PRICE [facility] [address] [place] [address] 08/08/2024 PRICE GUL Other cholelithiasis without obstruction K80.80 [facility] [address] [place] [address] 08/18/2024 [facility] [address] [place] [address] 08/18/2024 Ghadeer Mazloum [facility] [address] [place] [address] 09/12/2024 PRICE GUL Other cholelithiasis without obstruction K80.80 [facility] [address] [place] [address] 09/14/2024 RPICE GUL Anemia, unspecified type D64.9 [facility] [address] [place] [address] 09/18/2024 [facility] [address] [place] [address] 10/11/[address] [place] [address] 10/16/[address] [place] [address] 10/19/2024 [facility] [address] [place] [address] 11/03/[address] [place] [address] 11/03/[address] [place] [address] 01/02/[address] [place] [address] 01/15/2025 [facility] Migraine, unspecifie d, not intractable, without status migrainosus G43.[address] [place] [address] 08/25/2024 [facility] Assessments Encounter Date Diagnosis (ICD Code) Assessment Notes Treatment Notes Treatment Clinical Notes Section Notes 03/08/2024 Diabetes mellitus due to underlying condition with diabetic neuropathy, unspecified (ICD-10 - E08.40) Mrs. Marlow is a 48-year-old female Danish-speaking patient with type 2 diabetes mellitus and [...] antibiotic course. Recently seen by GI at [facility] with LISA Whitfield on [...] I10) Mrs. Marlow is a 48-year-old female Danish-speaking patient with type 2 diabetes mellitus and [...] antibiotic course. Recently seen by GI at [facility] with LISA Whitfield on [...] K80.80) Mrs. Marlow is a 48-year-old female Danish-speaking patient with type 2 diabetes mellitus and multiple psych issues here for abdominal pain. Two days ago, she went to [facility] ER for recurrent abdominal [...] transfusion. Otherwise, she will be referred to chief passenger ship steward/stewardess. I have rendered the services for this patient under direct supervision of Dr. Mojica, who did not see the patient but was available upon request 07/12/2024 Anemia, unspecified type (ICD-10 - D64.9) Mrs. Marlow is a 48-year-old female Danish-speaking patient with type 2 diabetes mellitus and multiple psych issues here for abdominal pain. Two days ago, she went to [facility] ER for recurrent abdominal [...] transfusion. Otherwise, she will be referred to chief passenger ship steward/stewardess. I have rendered the services for this patient under direct supervision of Dr. Mojica, who did not see the patient but was available upon request 07/18/2024 Other cholelithiasis without obstruction (ICD-10 - K80.80) 08/08/2024 Other cholelithiasis without obstruction (ICD-10 - K80.80) 08/15/2024 Pre-operative clearance (ICD-10 - Z01.818) Mrs. Marlow is a 49-year-old female Danish-speaking patient with type 2 diabetes mellitus and [...] Z00.00) Mrs. Marlow is a 49-year-old female Danish-speaking patient with type 2 diabetes mellitus anxiety [...] D64.9) Mrs. Marlow is a 49-year-old female Danish-speaking patient with type 2 diabetes mellitus anxiety [...] E08.40) Mrs. Marlow is a 49-year-old female Danish-speaking patient with type 2 diabetes mellitus anxiety, [...] She would like to establish care with harness cutter. Referred pt. Anemia: - Iron is currently [...] D64.9) Mrs. Marlow is a 49-year-old female Danish-speaking patient with type 2 diabetes mellitus anxiety, [...] She would like to establish care with harness cutter. Referred pt. Anemia: - Iron is currently [...] E11.9) Mrs. Marlow is a 49-year-old female Danish-speaking patient with type 2 diabetes mellitus anxiety, depression, history of H pylori is here for follow-up. Plan as follows: T2DM: - She is currently following with harness cutter at [facility]. Glipizide has been recently added to [...] 6-12 months. - She follows with GI [facility]. She has an elective cholecystectomy surgery coming up at [facility]. PTSD: - referred patient to psychiatry I have rendered the services for this patient under direct supervision of Dr. Mojica, who did not see the patient but was available upon request 12/25/2024 Pain in right knee (ICD-10 - M25.561) Mrs. Marlow is a 49-year-old female Danish-speaking patient with type 2 diabetes mellitus anxiety, depression, history of H pylori is here for follow-up. She states that recently was seen by Dr. Jones for iron transfusion. She complains of right knee joint pain and cough. Plan is as follows Cough. Most likely viral. She has upcoming cholecystectomy at [facility]. We will do chest x-ray to [...] R05.9) Mrs. Marlow is a 49-year-old female Danish-speaking patient with type 2 diabetes mellitus anxiety, depression, history of H pylori is here for follow-up. She states that recently was seen by Dr. Jones for iron transfusion. She complains of right knee joint pain and cough. Plan is as follows Cough. Most likely viral. She has upcoming cholecystectomy at [facility]. We will do chest x-ray to [...] E11.9) Mrs. Marlow is a 49-year-old female Danish-speaking patient with type 2 diabetes mellitus anxiety, depression, history of H pylori is here for follow-up. Plan as follows: T2DM: - She is currently following with harness cutter at [facility]. Glipizide has been recently added to [...] in 6-12 months. - She follows with [facility]. She has an elective cholecystectomy surgery coming up at [facility]. PTSD: - referred patient to psychiatry [...] D64.9) Mrs. Marlow is a 49-year-old female Danish-speaking patient with type 2 diabetes mellitus anxiety, depression, history of H pylori is here for follow-up. Plan as follows: T2DM: - She is currently following with harness cutter at [facility]. Glipizide has been recently added to [...] in 6-12 months. - She follows with [facility]. She has an elective cholecystectomy surgery coming up at [facility]. PTSD: - referred patient to psychiatry [...] E08.40) Mrs. Marlow is a 48-year-old female Danish-speaking patient with type 2 diabetes mellitus and multiple psych issues here for abdominal pain. Two days ago, she went to [facility] ER for recurrent abdominal [...] transfusion. Otherwise, she will be referred to chief passenger ship steward/stewardess. I have rendered the services for this patient under direct supervision of Dr. Mojica, who did not see the patient but was available upon request 11/03/2024 Anemia, unspecified type (ICD-10 - D64.9) Mrs. Marlow is a 49-year-old female Danish-speaking patient with type 2 diabetes mellitus anxiety, depression, history of H pylori is here for follow-up. Plan as follows: T2DM: - She is currently following with harness cutter at [facility]. Glipizide has been recently added to [...] 6-12 months. - She follows with GI [facility]. She has an elective cholecystectomy surgery coming up at [facility]. PTSD: - referred patient to psychiatry I have rendered the services for this patient under direct supervision of Dr. Mojica, who did not see the patient but was available upon request 10/13/2024 Helicobacter pylori [H. pylori] as the cause of diseases classified elsewhere (ICD-10 - B96.81) Mrs. Marlow is a 49-year-old female Danish-speaking patient with type 2 diabetes mellitus anxiety, [...] She would like to establish care with harness cutter. Referred pt. Anemia: - Iron is currently [...] N92.6) Mrs. Marlow is a 49-year-old female Danish-speaking patient with type 2 diabetes mellitus anxiety [...] D64.9) Mrs. Marlow is a 49-year-old female Danish-speaking patient with type 2 diabetes mellitus and [...] D64.9) Mrs. Marlow is a 48-year-old female Danish-speaking patient with type 2 diabetes mellitus and [...] antibiotic course. Recently seen by GI at [facility] with LISA Whitfield on [...] N92.6) Mrs. Marlow is a 48-year-old female Danish-speaking patient with type 2 diabetes mellitus and [...] antibiotic course. Recently seen by GI at [facility] with LISA Whitfield on [...] N92.6) Mrs. Marlow is a 49-year-old female Danish-speaking patient with type 2 diabetes mellitus and [...] K80.80) Mrs. Marlow is a 49-year-old female Danish-speaking patient with type 2 diabetes mellitus anxiety [...] K21.9) Mrs. Marlow is a 49-year-old female Danish-speaking patient with type 2 diabetes mellitus anxiety, depression, history of H pylori is here for follow-up. Plan as follows: T2DM: - She is currently following with harness cutter at [facility]. Glipizide has been recently added to [...] in 6-12 months. - She follows with [facility]. She has an elective cholecystectomy surgery coming up at [facility]. PTSD: - referred patient to psychiatry [...] K21.9) Mrs. Marlow is a 49-year-old female Danish-speaking patient with type 2 diabetes mellitus anxiety, depression, history of H pylori is here for follow-up. Plan as follows: T2DM: - She is currently following with harness cutter at [facility]. Glipizide has been recently added to [...] in 6-12 months. - She follows with [facility]. She has an elective cholecystectomy surgery coming up at [facility]. PTSD: - referred patient to psychiatry I have rendered the services for this patient under direct supervision of Dr. Mojica, who did not see the patient but was available upon request 01/11/2025 Post-traumatic stress disorder, unspecified (ICD-10 - F43.10) Mrs. Marlow is a 49-year-old female Danish-speaking patient with type 2 diabetes mellitus anxiety, depression, history of H pylori is here for follow-up. Plan as follows: T2DM: - She is currently following with harness cutter at [facility]. Glipizide has been recently added to [...] 6-12 months. - She follows with [facility]. She has an elective cholecystectomy surgery coming up at [facility]. PTSD: - referred patient to psychiatry [...] F43.10) Mrs. Marlow is a 49-year-old female Danish-speaking patient with type 2 diabetes mellitus anxiety, depression, history of H pylori is here for follow-up. Plan as follows: T2DM: - She is currently following with harness cutter at [facility]. Glipizide has been recently added to [...] 6-12 months. - She follows with [facility]. She has an elective cholecystectomy surgery coming up at [facility]. PTSD: - referred patient to psychiatry I have rendered the services for this patient under direct supervision of Dr. Mojica, who did not see the patient but was available upon request 08/15/2024 Other cholelithiasis without obstruction (ICD-10 - K80.80) Mrs. Marlow is a 49-year-old female Danish-speaking patient with type 2 diabetes mellitus and [...] K21.9) Mrs. Marlow is a 48-year-old female Danish-speaking patient with type 2 diabetes mellitus and [...] antibiotic course. Recently seen by GI at [facility] with LISA Whitfield on [...] G43.909) Mrs. Marlow is a 49-year-old female Danish-speaking patient with type 2 diabetes mellitus anxiety, depression, history of H pylori is here for follow-up. Plan as follows: T2DM: - She is currently following with harness cutter at [facility]. Glipizide has been recently added to [...] 6-12 months. - She follows with GI [facility]. She has an elective cholecystectomy surgery coming up at [facility]. PTSD: - referred patient to psychiatry [...] A1C 06/05/2022 HEMOGLOBIN A1C WITH EST GLUCOSE 01/29/20 23 HEMOGLOBIN A1C WITH EST GLUCOSE 09/30/19 TSH WITH REFLEX TO FT4 09/30/2022 Mammo: Diagnostic Mammogram Bilateral Xray: Knee Right (Standard, 4 Views) CBC/Differential (No Platelet)-[id number] CBC/Differential (No Platelet)-[id number] Albumin/Creatinine Ratio,Urine-[id number] Comp. Metabolic Panel (14)-[id number] 2024 A1c w/GlycoMark(R) Reflex-[id number] 024 Future Test Test Name Order Date Iron and [id number] 11/03/2024 Ferritin-[id number] 11/03/2024 CBC/Differential (No Platelet)-[id number] Next Appt Details Provider Name:Eladio multani, 02/09/2025 02:30:00 PM, [address] [place] [address], [phone], Provider Name:Eladio multani, 03/14/2025 11:00:00 AM, [address] [place] [address], [phone], Provider Name:Eladio multani, 07/13/2025 10:30:00 AM, [address] [place] [address], [phone], Insurance Providers Payer Name Payer Address Payer Phone Subscriber Number Group Number Insured Name Patient Relationship to Insured Coverage Start Date Coverage End Date [facility]) 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
--- OUTSIDE RECORDS SUMMARY | 2025-02-09 11:54 | XMS_ITS | Clinical Summary ---
Author Organization [facility] Address [address] [place] [address] Phone Care Team Providers Care Director Of Corporate Sales Name Role Phone Albert Mojica MD Primary Care Provider [phone] Allergies No known active allergies Medications aspirin [...] 04/08/2022 Class 2 obesity 04/08/2022 Diabetic neuropathy ([facility] V24, [facility] V28) 0 04/08/2022 Essential hypertension 04/08/2022 Gastro-esophageal reflux disease without esophag itis 04/08/2022 Generalized anxiety disorder 04/08/2022 Insomnia 04/08/2022 Iron deficiency anemia 04/08/2022 Moderate recurrent major dep ression ([facility] V24, [facility] V28) 04/08/2022 Osteoarthrosis 04/08/2022 Transient ischemic attack 04/08/2022 Post-traumatic stress disorder 04/08/2022 Severe obesity (BMI >= 40) ([facility] V24, [facility] V28) 04/08/2022 Overview (08/17/2024): Body mass index (BMI) greater than 40 Surgical History Surgery Date Site/Laterality Comments SECTION PROCEDURE: HISTORICAL Medical History Medical History Date Comments Diabetes mellitus type 2, co ntrolled, with complications ([facility] V24, [facility] V28) DX:Diabetes mellitus type 2, controlled, with complications ([facility]) Essential hypertension DX:Essent ial hypertension Anxiety state [...] Name Priority Date/Time Associated Diagnosis Comments [facility] SCREENING DIGITAL Routine 05/07/2022 8:06 AM EDT Encounter for screening mammogram for malignant neoplasm of breast from Last 3 Months or Most Recently Relevant to Health Maintenance Results * [facility] SCREENING DIGITAL (05/07/2022 8:06 AM EDT) Anatomical Region Laterality Modality Mammography 05/04/2022 2:48 PM EDT Narrative 05/07/2022 8:06 AM EDT [facility] Diagnostic Imaging Department [address] [place] [address] Patient: ??ABBAS,AKBAL ?/Age/Sex: 1975 - 47 - F Unit#: ??[id number] ? Location/Status: ??SPDIMAM/REG CLI ? Mnemonic/Ordering Site: ??DIGSC/SPMAM Ordering Physician: ??ALBERT MOJICA MD [facility] Screening Digital - 05/04/22 - 1523 EXAM: [facility] Screening Digital EXAM DATE AND TIME: 05/04/2022 3:24 PM HISTORY: ??Screening. COMPARISON: ??05/03/14 outside study TECHNIQUE: CC and MLO views of both breasts were obtained using full field digital mammography. Bilateral digital breast tomosynthesis was performed in the MLO projection. Computer aided detection with the [employer]2-AnyPerk was employed. TISSUE DENSITY: c. The breasts [...] recall) RECOMMENDATION(S): 1: Repeat film(s) needed LEFT 94964, 30166 3340F, 7025F Dictating Physician: ??ELIAN HERNANDEZ MD Electronically Signed by: ??ELIAN HERNANDEZ MD Dic Date/Time: ??05/07/22 08 Sign date/Time: ??05/07/22 0806 Procedure Note Elian Hernandez MD - 09/16/2022 [facility] Diagnostic Imaging Department [address] [place] [address] Patient: RANDY DEL VALLE D.O.B./Age/Sex: 1975 - 47 - F Unit#: [id number] Location/Status: SPDIMAM/REG CLI Mnemonic/Ordering Site: [facility] Ordering Physician: ALBERT MOJICA MD [facility] Screening Digital - 05/04/22 - 1523 EXAM: [facility] Screening Digital EXAM DATE AND TIME: 05/04/2022 3:24 PM HISTORY: Screening. COMPARISON: 05/03/14 outside study TECHNIQUE: CC and MLO views of both breasts were obtained using fullfield digital mammography. Bilateral digital breast tomosynthesis was performedin the MLO projection. Computer aided detection with the [employer] 7.2-I-MDas employed. TISSUE DENSITY: c. The breasts are [...] recall) RECOMMENDATION(S): 1: Repeat film(s) needed LEFT 35937, 78345 3340F, 7025F Dictating Physician: ELIAN HERNANDEZ MD Electronically Signed by: ELIAN HERNANDEZ MD Dic Date/Time: 05/07/22803 Sign date/Time: 05/07/22805 Albert Mojica MD IMG BI PROCEDURES Final Result from Last 3 Months or Most Recently Relevant to Health Maintenance Insurance [facility] Care Teams Director Of Corporate Sales Relationship Specialty Start Date End Date Albert Mojica MD [address] [place] [address] PCP - General Internal Medicine 03/05/22
--- OUTSIDE RECORDS SUMMARY | 2025-02-09 11:54 | XMS_ITS | Encounter Summary ---
Author Organization [facility] Address [address] [address] Phone Care Team Providers Care Speeder Hand Name Role Phone Yarely Rondon MD Primary Care Provider [phone] Reason for Visit * Reason Comments Proteinuria Encounter Details Date Type Department Care Team (Latest Contact Info) Description 02/06/2025 1:00 PM EDT Office Visit [facility] [address] [address] Catalino Younger MD [address] [address] Type 2 diabetes mellitus with [...] Return in about 1 year (around 02/06/2026). Catalino Younger MD documented in this encounter Plan of Treatment Upcoming Encounters Date Type Department Care Team (Late st Contact Info) Description 02/05/2026 1:30 PM EDT Office Visit [facility] [address] [address] Catalino Younger MD [address] [address] Scheduled Orders Name Type Priority [...] proteinuria documented in this encounter Care Teams Speeder Hand Relationship Specialty Start Date End Date Yarely Rondon MD [address] [place] [address] PCP - General Internal Medicine 04/07/23 documented as of this encounter
--- OUTSIDE RECORDS SUMMARY | 2025-02-09 11:54 | XMS_ITS | Clinical Summary ---
Author Organization [facility] Address [address] [place] [address] Phone Care Team Providers Care Weight Engineer Name Role Phone Alcon Yarely Vines MD Primary Care Provider [phone] Allergies No known active allergies Medications aspirin [...] [facility] Visit [facility] [address] [address] Catalino oYunger MD Type 2 diabetes mellitus with diabetic [...] Office Visit [facility] [address] [address] Catalino Younger MD [address] [address] Health Maintenance Due Date Last [...] (6 to 49 Years) Discontinued 08/13/2011 Insurance [facility] [employer] [facility] [employer] Care Teams Weight Engineer Relationship Specialty Start Date End Date Yarely Rondon MD [address] [place] [address] PCP - General Internal Medicine 04/07/23
--- OUTSIDE RECORDS SUMMARY | 2025-02-09 11:54 | XMS_ITS | Encounter Summary ---
Author Organization [facility] Address [address] [facility] [address] [place] [address] Phone Care Team Providers Care Electrical Equipment Assembler Name Role Phone Alcon Pritchett A MD Primary Care Provider [phone] Reason for Visit * Reason Comments Med Change Request Encounter Details Date Type Department Care Team (Late Contact Info) Description 10/08/2023 Refill [facility] [address] [facility] [address] [place] [address] Catalino Younger MD [address] [address] Social History Tobacco Use Types [...] Visit [facility] [address] [address] Catalino Younger MD [address] [address] documented as of this encounter Visit Diagnoses Not on filedocumented in this encounter Care Teams Electrical Equipment Assembler Relationship Specialty Start Date End Date Yarely Rondon MD [address] [place] [address] PCP - General Internal Medicine 04/07/23 documented as of this encounter
[2025-02-09 13:44] LABS: H Pylori Breath Test Negative (Negative)
== END 2025-02-07 12:05 | disposition home or self-care (01) ==
LOC: HO.LNP 12:04
PROVIDERS: PCP Hospitalist; Visit Provider Nurse Practitioner Family
DX: K21.9 Gastro-esophageal reflux disease without esophagitis (principal)
CPT/HCPCS: 83013; 99211

== ENCOUNTER 2025-02-07 12:04 | Outpatient (AMB) | payer OTHER, SELFPAY ==
--- OUTSIDE RECORDS SUMMARY | 2025-02-07 12:45 | XMS_ITS | Continuity of Care Document ---
Author Organization [facility]ocrinolo gy and Diabetes Address [address] [place] [id number]- Care Team Providers Care Liquid Loader Name Role Phone Yarely Rondon MD Primary Care Physician En[facility] [id number] Date(s): 10/26/24 - 02/01/25 [facility] Diabetes [address] [place] [address] Encounter Diagnosis Type 2 diabetes mellitus with hyperglycemia, with long-term current use of insulin(Discharge Diagnosis) - 01/01/25 Attending Physician: Didier Vega MD Admitting Physician: Didier Vega MD Referring Physician: Yarely Rondon MD Encounter Type: Pre-OutPatient One Time Allergies, Adverse Reactions, Alerts No Known Allergies Medications (Vitamin D3) Cholecalciferol 400 [facility] units/mL oral syringe 1 mL = 10 [...] hours, PRN for pain, May partial fill BS [id number], # 12 tablet, 0 Refills, Maintenance, 07/09/23 12:54:00 AM EDT, Tablet, [facility]/pharmacy #[id number], Partial fill upon patient request if the prescription is for a schedule II opioid drug., 1-2 tablet By Mouth Every 6 hours,PRN:for pain,Instr:May partial fill; BS [id number], 160, cm, 07/08/23 21:38:00 EDT, Height, 93, [...] Repeat number: 1 Freestyle Lite Test Strips Freestyle Lite Test Strips, See Instructions, # 100 each, Refills 11, Tot. Refills 11, Maintenance,Used to test blood glucose 3x/day. E11.65, 01/30/25 3:28:00 PM EDT, Supply, 163, cm, 01/30/25 15:03:00 EDT, Height, 86.5, kg, 12/28/24 14:30:00 EDT, Dry Weight Start Date: 01/30/25 Status: Ordered Quantity: 100.0 Unit: each Repeat number: 12 Indication: Type 2 diabetes mellitus with hyperglycemia Freestyle Lite Test Strips Maintenance, 01/03/18 2:31:26 [...] 5 Refills, Maintenance, 12/01/11 1:05:40 PM EST, [facility]/pharmacy #[id number] Start Date: 12/01/11 Status: Ordered Quantity: 180.0 Unit: capsule Repeat number: 6 glipiZIDE 5 mg oral tablet, extended release 1 tablet = 5 mg, By Mouth, Daily, with breakfast, # 30 tablet, 5 Refills, Maintenance, 10/26/24 11:22:00 AM EST, ER Tablet, [facility]/pharmacy #[id number], Partial fill upon patient request if [...] Refills, Maintenance, 03/06/23 9:21:00 PM EDT, Tablet, [facility]/pharmacy #[id number], Partial fill upon patient request if [...] 9:03:00 AM EDT, Route to Pharmacy Electronically, [facility] STORE [id number], 160, cm, 04/07/22 15:56:00 EDT, Height, 96, [...] 12/10/21 12:52:00PM EDT, Route to Pharmacy Electronically, [facility]/pharmacy #[id number], Partial fill upon patient request if [...] Confirmed Active Obese class I Confirmed Active Diagnosis Diagnosis Type Effective Dates Health Status Cl inical Service Informant Type 2 diabetes mellitus with hyperglycemia, with long-term current use of insulin Discharge Diagnosis 01/01/25 Social History Social History Type Response Smoking Status Never (less than 100 in lifetime) entered on: 01/30/25 Sex Sex Representation Female (finding) Patient Care team information Care Team Personnel Name: Yarely Rondon MD Position: [facility] Physician - Primary Care Member Role: PCP Address: [address] [place] [address] [address] Telecom: Care Team Related Persons Name: FELICITA SPAULDING Name: YO LONG Name: GHAZALA MEZA Name: MIN LOWERY Insurance Providers Guarantor name: RANDY DEL VALLE Health Plan Information #: 1 Payer: [employer] Member Number: [id number] Policy Number: NA Group Number: NA Health Plan Information #: 2 Payer: [employer] Member Number: [id number] Policy Number: NA Group Number: NA
--- OUTSIDE RECORDS SUMMARY | 2025-02-07 12:45 | XMS_ITS | Clinical Summary ---
Author Organization [facility] Address [address] [place] [address] Phone Care Team Providers Care International Representative Name Role Phone Albert Mojica MD Primary Care Provider [phone] Allergies No known active allergies Medications aspirin [...] 04/08/2022 Class 2 obesity 04/08/2022 Diabetic neuropathy ([facility] V24, [facility] V28) 0 04/08/2022 Essential hypertension 04/08/2022 Gastro-esophageal reflux disease without esophag itis 04/08/2022 Generalized anxiety disorder 04/08/2022 Insomnia 04/08/2022 Iron deficiency anemia 04/08/2022 Moderate recurrent major dep ression ([facility] V24, [facility] V28) 04/08/2022 Osteoarthrosis 04/08/2022 Transient ischemic attack 04/08/2022 Post-traumatic stress disorder 04/08/2022 Severe obesity (BMI >= 40) ([facility] V24, [facility] V28) 04/08/2022 Overview (08/17/2024): Body mass index (BMI) greater than 40 Surgical History Surgery Date Site/Laterality Comments SECTION PROCEDURE: HISTORICAL Medical History Medical History Date Comments Diabetes mellitus type 2, co ntrolled, with complications ([facility] V24, [facility] V28) DX:Diabetes mellitus type 2, controlled, with complications ([facility]) Essential hypertension DX:Essent ial hypertension Anxiety state [...] Procedure Name Priority Date/Time Associated Diagnosis Comments [facility] Routine 05/07/2022 8:06 AM EDT Encounter for screening mammogram for malignant neoplasm of breast from Last 3 Months or Most Recently Relevant to Health Maintenance Results * [facility] (05/07/2022 8:06 AM EDT) Anatomical Region Laterality Modality Mammography 05/04/2022 2:48 PM EDT Narrative 05/07/2022 8:06 AM EDT [facility] Diagnostic Imaging Department [address] [place] [address] Patient: ??ABBAS,AKBAL ?/Age/Sex: 1975 - 47 - F Unit#: ??[id number] ? Location/Status: ??SPDIMAM/REG CLI ? Mnemonic/Ordering Site: ??DIGSC/SPMAM Ordering Physician: ??ALBERT MOJICA MD [facility] Screening Digital - 05/04/22 - 1523 EXAM: [facility] Screening Digital EXAM DATE AND TIME: 05/04/2022 3:24 PM HISTORY: ??Screening. COMPARISON: ??05/03/14 outside study TECHNIQUE: CC and MLO views of both breasts were obtained using full field digital mammography. Bilateral digital breast tomosynthesis was performed in the MLO projection. 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 TISSUE DENSITY: c. The breasts [...] recall) RECOMMENDATION(S): 1: Repeat film(s) needed LEFT 30035, 37648 3340F, 7025F Dictating Physician: ??ELIAN HERNANDEZ MD Electronically Signed by: ??ELIAN HERNANDEZ MD Dic Date/Time: ??05/07/22 08 Sign date/Time: ??05/07/22 0806 Procedure Note Elian Hernandez MD - 09/16/2022 [facility] Diagnostic Imaging Department [address] [place] [address] Patient: RANDY DEL VALLE D.O.B./Age/Sex: 1975 - 47 - F Unit#: [id number] Location/Status: SPDIMAM/REG CLI Mnemonic/Ordering Site: [facility] Ordering Physician: ALBERT MOJICA MD [facility] Digital - 05/04/22 - 1523 EXAM: [facility] EXAM DATE AND TIME: 05/04/2022 3:24 PM HISTORY: Screening. COMPARISON: 05/03/14 outside study TECHNIQUE: CC and MLO views of both breasts were obtained using fullfield digital mammography. Bilateral digital breast tomosynthesis was performedin the MLO projection. 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 TISSUE DENSITY: c. The breasts are [...] recall) RECOMMENDATION(S): 1: Repeat film(s) needed LEFT 82082, 24115 3340F, 7025F Dictating Physician: ELIAN HERNANDEZ MD Electronically Signed by: ELIAN HERNANDEZ MD Dic Date/Time: 05/07/22803 Sign date/Time: 05/07/22805 Albert Mojica MD IMG BI PROCEDURES Final Result from Last 3 Months or Most Recently Relevant to Health Maintenance Insurance [facility] [employer] Care Teams International Representative Relationship Specialty Start Date End Date Albert Mojica MD [address] [place] [address] PCP - General Internal Medicine 03/05/22
--- OUTSIDE RECORDS SUMMARY | 2025-02-07 12:45 | XMS_ITS | Encounter Summary ---
Author Organization [facility] Address [address] [address] Phone Care Team Providers Care Meat Department Manager Name Role Phone Yarely Rondon MD Primary Care Provider [phone] Reason for Visit * Reason Comments Proteinuria Encounter Details Date Type Department Care Team (Latest Contact Info) Description 02/06/2025 1:00 PM EDT Office Visit [facility] [address] [address] Catalino Younger MD [address] [address] Type 2 diabetes mellitus with diabetic polyneuropathy (HCC) (Primary Dx); Other proteinuria Social History Tobacco Use Types Packs/Day Years [...] on file documented as of this encounter Last Filed Vital Signs Vital Sign Reading Time Taken Comments Blood Pressure 120/74 02/06/2025 1:52 PM EDT Pulse 78 02/06/2025 1:52 PM EDT Temperature - - Respiratory Rate - - Oxygen Saturation - - Inhaled Oxygen Concentration - - Weight 83.9 kg (185 lb) 02/06/2025 1:52 PM EDT Height - - Body Mass Index - - documented in this encounter Progress Notes * Catalino Younger MD - 02/06/2025 1:00 PM EDT Images from the original note were not included. Patient Name: Ele Valencia, Female Date of : 1975, 49 y.o. Date: 02/06/2025 History of Present Illness Ele Valencia is a 49 y.o. female with past medical history of diabetes for the past 18 years, on insulin for the past 10 years, hypertension for > 10 years, GERD, obesity, asthma presents for concerns of microalbuminuria. Her renal function is fortunately within normal limits she has tried Trulicity in the past and she did not like it and therefore was stopped. She has been on lisinopril 10mg for about 10 years and at some point yet 20 mg dose was tried and it made her feel weird and then it was stopped by her doctor. Since last visit, she has some GI issues due to which reduced food intake and increased sugar control. A1c decreased from ~8 to ~7 now. She took the sglt2i for 3 days, had urinary symptoms- stopped taking it The following portions of the patient's chart were reviewed in this encounter and updated as appropriate: Allergies Meds Problems Med Hx Surg Hx Fam Hx Past Medical History: Diagnosis Date Anxiety disorder Asthma Insomnia Other specified diabetes mellitus with diabetic neuropathy (HCC) Posttraumatic stress disorder Pseudobulbar affect Review of Systems Constitutional: Negative for chills and fever. Respiratory: Negative for cough and shortness of breath. Cardiovascular: Negative for chest pain, palpitations and leg swelling. Gastrointestinal: Negative for abdominal pain, nausea and vomiting. Genitourinary: Negative for dysuria, frequency, hematuria and urgency. Medication List Current Outpatient Medications Medication Sig Dispense Refill aspirin (ST MACY) 81 MG EC tablet Take 81 mg by mouth Calcium Citrate-Vitamin D 250-5 MG-MCG tablet Take 2 tablets by mouth Dapagliflozin Propanediol 5 MG tablet Take 5 mg by mouth 1 (one) time each day in the morning 30 tablet 11 diazePAM (Valium) 5 MG tablet Take 5 mg by mouth gabapentin (NEURONTIN) 300 MG capsule Take 300 mg by mouth insulin glargine (Lantus SoloStar) 100 UNIT/ML injection Inject under the skin lisinopril 10 MG tablet Take 10 mg by mouth meclizine (ANTIVERT) 12.5 MG tablet Take 12.5 mg by mouth metFORMIN (GLUCOPHAGE) 1000 MG tablet Take 1,000 mg by mouth in the morning and 1,000 mg in the evening. QUEtiapine (SEROquel) 25 MG tablet Take 25 mg by mouth rizatriptan (MAXALT) 10 MG tablet Take 10 mg by mouth zolpidem (Ambien) 10 MG tablet Take 10 mg by mouth No current facility-administered medications for this visit. Allergy List No Known Allergies Physical Exam BP 120/74 Pulse 78 Wt 185 lb (83.9 kg) Vitals reviewed. Constitutional: She is oriented to person, place, and time. She appears well- developed. No distress. obese Cardiovascular: Normal rate, regular rhythm and normal heart sounds. She exhibits no edema. Pulmonary/Chest: Effort normal and breath sounds normal. No respiratory distress. Abdominal: Soft. There is no abdominal tenderness. Musculoskeletal: Normal range of motion. Neurological: She is alert and oriented to person, place, and time. Skin: Skin is warm and dry. Labs Chemistry Lab Units 08/10/23 0000 SODIUM 136* POTASSIUM 4.3* CO2 mmol/L 26 BUN mg/dL 13 CREATININE mg/dL 0.60 CHLORIDE 101.0 ALBUMIN g/dL 4.2 Bone Mineral Lab Units 08/10/23 0000 CALCIUM mg/dL 9.6 Iron Studies Lab Units 09/15/24 1019 FERRITIN ng/mL 6* TIBC mcg/dL 392 IRON SATURATION % 5* Assessment & Plan 1. Type 2 diabetes mellitus with diabetic polyneuropathy (HCC) 2. Other proteinuria She has diabetic nephropathy with microalbuminuria likely from longstanding diabetes. Fortunately her kidney function is within normal limits. Explored the option of increasing lisinopril to 20 mg, however due to side effects in the past thiswas stopped. Her blood pressure today is well-controlled Holding off SGLT2 inhibitors, dapagliflozin at 5 mg as she developed urinary symptoms. On metformin and insulin presently - last A1c 6.9 ( ) Plan: Counseled about weight loss and considering alternatives to Trulicity, counseled about diet and diabetes control. No medication changes today Will see her in follow-up with recheck of her urine albumin. Orders Placed This Encounter CBC and Differential Basic Metabolic Panel Urinalysis with microscopic Urine Albumin / Creatinine Ratio Protein, Total, Random Urine w/Creatinine (Protein/Creat Ratio) Vitamin D 25 Hydroxy Return in about 1 year (around 02/06/2026). Catalion Younger MD documented in this encounter Plan of Treatment Upcoming Encounters Date Type Department Care Team (Late st Contact Info) Description 02/05/2026 1:30 PM EDT Office Visit [facility] [address] [address] Catalino Younger MD [address] [address] Scheduled Orders Name Type Priority Associated Diagnoses Orde r Schedule CBC and Differential Lab Routine Type 2 diabetes mellitus with diabetic polyneuropathy (HCC) Other proteinuria Expected: 02/06/2025, Expires: 03/09/2026 Basic Metabolic Panel Lab Routine Type 2 diabetes mellitus with diabetic polyneuropathy (HCC) Other proteinuria Expected: 02/06/2025, Expires: 03/09/2026 Urinalysis with microscopic Lab Routine Type 2 diabetes mellitus with diabetic polyneuropathy (HCC) Other proteinuria Expected: 02/06/2025, Expires: 03/09/2026 Urine Albumin / Creatinine Ratio Lab Routine Type 2 diabetes mellitus with diabetic polyneuropathy (HCC) Other proteinuria Expected: 02/06/2025, Expires: 03/09/2026 Protein, Total, Random Urine w/Creatinine (Protein/Creat Ratio) Lab Routine Type 2 diabetes mellitus with diabetic polyneuropathy (HCC) Other proteinuria Expected: 02/06/2025, Expires: 03/09/2026 Vitamin D 25 Hydroxy Lab Routine Type 2 diabetes mellitus with diabetic polyneuropathy (HCC) Other proteinuria Expected: 02/06/2025, Expires: 03/09/2026 documented as of this encounter Visit Diagnoses Diagnosis Type 2 diabetes mellitus with diabetic polyneuropathy (HCC)- Primary Other proteinuria documented in this encounter Care Teams Meat Department Manager Relationship Specialty Start Date End Date Yarely Rondon MD [address] [place] [address] PCP - General Internal Medicine 04/07/23 documented as of this encounter
--- OUTSIDE RECORDS SUMMARY | 2025-02-07 12:45 | XMS_ITS | Clinical Summary ---
Author Organization [facility] Address [address] [place] [address] Care Team Providers Care Photoradio Operator Name Role Phone Unavailable Primary Care [...] complication, with long-term current use of insulin ([facility]) Take 1,000 mg by mouth 2 (two) times daily Per Endo 1 7 Active ADITYA PEN NEEDLE 32 gauge x 32 ndleIndications:T ype 2 diabetes mellitus without complication, with long-term current use of insulin ([facility]) Per Endo 0 7 Active ONGLYZA 5 mg tabletIndications :Type 2 diabetes mellitus without complication, with long-term current use of insulin ([facility]) Take by mouth once daily Per Endo 0 7 Active insulin glargine (LANTUS) 100 unit/mL injectionIndicati ons:Type 2 diabetes mellitus without complication, with long-term current use of insulin ([facility]) Per Endo 10 mL 7 Active canagliflozin (INVOKANA) 100 mg tabIndications:Ty pe 2 diabetes mellitus without complication, with long-term current use of insulin ([facility]) Take by mouth 7 Active betamethasone dipropionate [...] mcg/actuation inhalerIndication s:Mild intermittent asthma without complication ([facility]) Inhale 2 Puffs into the lungs every [...] 11/05/2018 Overview (07/02/2019): 09/29/18 - Seen at [facility] c/o left sided chest pain x [...] (01/25/2017): Due to menorrhagia Mild intermittent asthma ([facility]) 01/25/2017 Type 2 diabetes mellitus without complication Overview (06/26/2019): [place] [facility] [place] 03/25/18 - Endo F/U. HgA1c 8.8%. [...] Diagnosed Date Resolved Date Diabetic eye exam ([facility]) 11/17/2016 08/03/2018 Overview (11/17/2016): Per pt, [...] of Treatment Not on file Insurance [facility] [employer] [facility] [employer]
--- OUTSIDE RECORDS SUMMARY | 2025-02-07 12:45 | XMS_ITS | Patient Health Record ---
Author Organization [facility] Address [address] [place] [address] Care Team Providers Care Behavior Analyst Name Role Phone ALBERT MOJICA Primary Care Provider Tariq Llamas Unavailable [phone] Eladio Garrett Unavailable [phone] Allergies Allergen (clinical drug ingredient) Drug/Non Drug Allergy documented on EMR Reaction Allergy Type Onset Date Status dulaglutide Trulicity nausea/headache Drug Allergy Active Results Component Value Reference Range Notes CBC With Differential/Platel et-[id number] Reviewed date:02/17/2024 03:26:04 PM Interpretation: Performing Lab:[facility], [address], [place], Phone - [phone], Director - Lissette Notes/Report: WBC 11.9 3.4-10.8 [...] % Immature Grans (Abs) 0.0 0.0-0.1 x10E3/uL Ferritin-[id number] Reviewed date:02/16/2024 07:49:03 AM Interpretation: Performing Lab:[facility], [address] [place] [address], Phone - [phone], Director - MDJodry Notes/Report: Ferritin 10 15-150 ng/mL Iron-[id number] Reviewed date:02/16/2024 07:49:05 AM Interpretation: Performing Lab:[facility], [address] [place] [address], Phone - [phone], Director - MDJodry Notes/Report: Iron 15 27-159 ug/dL CBC With Differential/Platel et-[id number] Reviewed date:07/18/2024 10:47:00 PM Interpretation: Performing Lab:[facility], [address] [place] [address], Phone - [phone], Director - MDJodry Notes/Report: WBC 12.9 3.4-10.8 [...] % Immature Grans (Abs) 0.1 0.0-0.1 x10E3/uL Ferritin-[id number] Reviewed date:07/18/2024 01:54:35 PM Interpretation: Performing Lab:[facility], Phone - [phone], Director - [facility] Notes/Report: Ferritin 8 15-150 ng/mL Iron and TIBC-[id number] Reviewed date:07/18/2024 01:55:05 PM Interpretation: Performing Lab:[facility], Phone - [phone], Director [facility] Notes/Report: Iron Bind.Cap.(TIBC) 385 250-450 ug/dL UIBC 329 131-425 ug/dL Iron 56 27-159 ug/dL Iron Saturation 15 15-55 % Comp. Metabolic Panel (14)-3 65099 Reviewed date:10/19/2024 02:29:35 PM Interpretation: Performing Lab:[facility], [address] [place] [address], Phone - [phone], Director [facility] Notes/Report: Glucose 133 70-99 mg/dL BUN 8 [...] IU/L ALT (SGPT) 9 0-32 IU/L Hemoglobin [id number] Reviewed date:10/19/2024 02:31:00 PM Interpretation: Performing Lab:[facility], Phone - [phone], Director - Lissette Notes/Report: Hemoglobin A1c 7.5 4.8-5.6 % . Prediabetes: 5.7 - 6.4 Diabetes: >6.4 Glycemic control for adults with diabetes: <7.0 Rell Donaldson CMP14 Default A hand-written panel/profile was received from your office. In accordance with the [facility] Ambiguous Test Code Policy dated March 2003, we have completed your order by using the closest currently or formerly recognized AMA panel. We have assigned Comprehensive Metabolic Panel (14), Test Code #372058 to this request. If this is not the testing you wished to receive on this specimen, please contact the [facility] Client Inquiry/Technical Services Department to clarify the test order. We appreciate your business. Comp. Metabolic Panel (14)-3 Reviewed date:08/18/2024 11:12:10 AM Interpretation: Performing Lab:[facility], [address] [facility], Phone - [phone], Director - Lissette Notes/Report: Glucose 144 70-99 [...] (SGPT) 11 0-32 IU/L CBC With Differential/Platel et-[id number] Reviewed date:08/18/2024 11:13:49 AM Interpretation: Performing Lab:[facility], [address] [facility], [place], Phone - [phone], Director - Lissette Notes/Report: WBC 12.4 3.4-10.8 x10E3/uL Effective August 28, 2024 profile [id number] WBC will be made non-orderable as a [...] Immature Grans (Abs) 0.0 0.0-0.1 x10E3/uL Hemoglobin [id number] Reviewed date:08/18/2024 11:01:17 AM Interpretation: Performing Lab:[facility], [address] [place] [address], [place], Phone - [phone], Director - Lissette Notes/Report: Hemoglobin A1c 7.0 4.8-5.6 % . Prediabetes: 5.7 - 6.4 Diabetes: >6.4 Glycemic control for adults with diabetes: <7.0 Reason For Referral Reason Evaluation and manag ement Diagnosis 1 Other cholelithiasis without obstruction (K80.80) Referral Organization [facility] Referring Provider First Name Eladio Referring Provider Last Name Tami Referred Provider Specialty Gastrointest inal surgeon General Notes Referral sent to [facility] - Office will call pt for scheduling.Chey Latraya 07/13/2024 07:43:35 AM > Referral Priority Stat Reason Evaluation and manag ement Diagnosis 1 Iron deficiency anem ia, unspecified (D50.9) Referral Organization [facility] Referring Provider First Name [facility] Referring Provider Last Name [facility] Referred Provider Specialty Hematology General Notes Referral faxed to [facility] - Office will call patient for scheduling.Chey Emilie 07/14/2024 08:47:08 AM > Referral Priority Urgent Reason please evaluate and treat Diagnosis 1 Diabetes mellitus du e to underlying condition with diabetic neuropathy, unspecified (E08.40) Referral Organization [facility] Referring Provider First Name [facility] Referring Provider Last Name [facility] Referred Provider Specialty Endocrinolog y General Notes referral was faxed t o [facility]. Please contact patient for scheduling. Referral Priority Routine Reason please evaluate and treat Diagnosis 1 Post-traumatic stres s disorder, unspecified (F43.10) Referral Organization [facility] Referring Provider First Name [facility] Referring Provider Last Name [facility] Referred Provider Specialty Psychiatry General Notes referral was faxed t o Dr. Mann office. Please contact patient for scheduling., Elana Da Silva 11/03/2024 01:29:36 PM > Referral Priority Routine Reason Please evaluate and treat Diagnosis 1 Post-traumatic stres s disorder, unspecified (F43.10) Referral Organization [facility] Referring Provider First Name [facility] Referring Provider Last Name [facility] Referred Provider Specialty Psychiatry General Notes Please call patient to schedule appointment.Niles Crystal 01/12/2025 07:07:00 AM > Referral Priority Routine Medications Medication SIG (Take, Route, Frequency, Duration) [...] Gabapentin 300 MG TAKE 1 CAPSULE BY [facility] THREE TIMES A DAY for 30 Active Nuedexta 20-10 MG 1 capsule Orally Twi ce a day Active metFORMIN HCl 1000 MG TAKE 1 TABLET BY M OUTH TWICE A DAY WITH MEALS for 90 Active Nitrostat 0.4 MG as directed Sublingual Active FreeStyle Sal 2 [place] - as directed Active Fish Oil 1000 [...] Orally once for 1 days 11/04/2023 Not-Taking [place] 3 1000 MG 3 capsules Orally On [...] W/U Status Risk Notes Problem Helicobacter pylori (94260458) Helicobacter pylori [H. 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) Active confirmed Problem Moderate recurrent major depression (09407369) Major depressive disorder, recurrent, moderate (F33.1) Active confirmed Problem Generalized anxiety disorder (55294774) Generalized anxiety disorder (F41.1) Active confirmed Problem Post-traumatic stress disorder (85450033) Post-traumatic stress disorder, unspecified (F43.10) Active confirmed Problem Migraine without aura, not refractory (disorder) (562274732) Migraine, unspecified, not intractable, without status migrainosus (G43.909) Active confirmed Problem Transient ischemic attack (417551545) Transient cerebral ischemic attack, unspecified (G45.9) Active confirmed Problem Insomnia (476487264) Insomnia, unspecified (G47.00) Active confirmed Problem Vertiginous syndrome (83836453) Unspecified disorder of vestibular function, unspecified ear (H81.90) Active confirmed Problem Essential hypertension (97071996) Essential (primary) hypertension (I10) Active confirmed Problem Gastro-esophageal reflux disease without esophagitis (964897030) Gastro-esophageal reflux disease without esophagitis (K21.9) Active confirmed Problem Cholelithiasis without obstruction (50850827) Other cholelithiasis without obstruction (K80.80) Active confirmed Problem Osteoarthritis (873381339) Unspecified osteoarthritis, unspecified site (M19.90) Active confirmed Problem Backache (982575623) Dorsalgia, unspecified (M54.9) Active confirmed Problem Excessive and frequent menstruation (277175560) Excessive and frequent menstruation with regular cycle (N92.0) Active confirmed Problem Abnormal uterine bleeding (41374171090636) Abnormal uterine and vaginal bleeding, unspecified (N93.9) Active confirmed Problem Abnormal gait (11142019) Unspecified abnormalities of gait and mobility (R26.9) Active confirmed Problem Long-term current use of insulin (414520511) detention (current) use of insulin (Z79.4) Active confirmed Problem Essential hypertension (31941825) HTN (hypertension), benign (I10) Active confirmed Problem Anemia (543954591) Anemia, unspecified type (D64.9) Active confirmed Problem Menstrual periods irregular (56267209) Menstrual periods irregular (N92.6) Active confirmed Vital Signs Heart Rate 75 /min 01/11/2025 Temperature 98.9 degrees Fahrenheit 01/11/2025 Blood pressure diastolic 72 mm Hg 01/11/2025 Oximetry 98 % 01/11/2025 Height 64 in 01/11/2025 Blood pressure systolic 110 mm Hg 01/11/2025 Weight 185.7 lbs 01/11/2025 BMI 31.87 kg/m2 01/11/2025 Encounters Encounter Location Date Provider Diagnosis [address] [address] 03/08/2024 Eladio Garrett Diabetes mellitus du e to underlying condition with diabetic neuropathy, unspecified E08.40 ; Essential (primary) hypertension I10 ; Anemia, unspecified D64.9 ; Menstrual periods irregular N92.6 and Gastro-esophageal reflux disease without esophagitis K21.[address] [address] 05/05/2024 ALBERT MOJICA [address] [place] [address] 07/12/2024 Eladio Garrett Other cholelithiasis without obstruction K80.80 ; Anemia, unspecified type D64.9 and Diabetes mellitus due to underlying condition with diabetic neuropathy, unspecified E08.[address] [address] 08/15/2024 Eladio Garrett Pre-operative cleara nce Z01.818 ; Anemia, unspecified type D64.9 ; Menstrual periods irregular N92.6 and Other cholelithiasis without obstruction K80.[address] [place] [address] 08/16/2024 PRICE Neil [address] [place] [address] 09/12/2024 A[place] Alam Anemia, unspecified type D64.9 ; Annual physical exam Z00.00 ; Menstrual periods irregular N92.6 and Other cholelithiasis without obstruction K80.[address] [address] 10/13/2024 Eladio Garrett Diabetes mellitus du e to underlying condition with diabetic neuropathy, unspecified E08.40 ; Anemia, unspecified type D64.9 and Helicobacter pylori [H. pylori] as the cause of diseases classified elsewhere B96.[address] [address] 11/03/2024 Eladio Garrett Type 2 diabetes mellitus without complications E11.9 ; Anemia, unspecified type D64.9 ; Gastro-esophageal reflux disease without esophagitis K21.9 and Post-traumatic stress disorder, unspecified F43.[address] [place] [address] 12/25/2024 ALBERT MOJICA Cough, unspecified R05.9 and Pain in right knee M25.[address] [address] 01/11/2025 Eladio Garrett Type 2 diabetes mellitus without complications E11.9 ; Anemia, unspecified type D64.9 ; Gastro-esophageal reflux disease without esophagitis K21.9 ; Post-traumatic stress disorder, unspecified F43.10 and Migraine, unspecified, not intractable, without status migrainosus G43.[address] [place] [address] 03/03/2024 PRICE [facility] [address] [place] [address] 03/17/2024 PRICE [facility] [address] [place] [address] 05/05/2024 PRICE [facility] [address] [place] [address] 07/12/2024 PRICE [facility] [address] [place] [address] 07/17/2024 [facility] [address] [place] [address] 07/18/2024 Ghadeer Mazloum Other cholelithiasis without obstruction K80.80 [facility] [address] [place] [address] 08/04/2024 PRICE [facility] [address] [place] [address] 08/08/2024 PRICE GUL Other cholelithiasis without obstruction K80.80 [facility] [address] [place] [address] 08/18/2024 [facility] [address] [place] [address] 08/18/2024 Ghadeer Mazloum [facility] [address] [place] [address] 09/12/2024 PRICE GUL Other cholelithiasis without obstruction K80.80 [facility] [address] [place] [address] 09/14/2024 PRICE GUL Anemia, unspecified type D64.9 [facility] [address] [place] [address] 09/18/2024 [facility] [address] [place] [address] 10/11/[address] [place] [address] 10/16/[address] [place] [address] 10/19/2024 [facility] [address] [place] [address] 11/03/[address] [place] [address] 11/03/[address] [place] [address] 01/02/[address] [place] [address] 01/15/2025 [facility] Migraine, unspecifie d, not intractable, without status migrainosus G43.[address] [place] [address] 08/25/2024 [facility] Assessments Encounter Date Diagnosis (ICD Code) Assessment Notes Treatment Notes Treatment Clinical Notes Section Notes 03/08/2024 Diabetes mellitus due to underlying condition with diabetic neuropathy, unspecified (ICD-10 - E08.40) Mrs. Marlow is a 48-year-old female Mohawk-speaking patient with type 2 diabetes mellitus and [...] antibiotic course. Recently seen [place] [facility] [place] LISA Whitfield on February 22. She [...] I10) Mrs. Marlow is a 48-year-old female Mohawk-speaking patient with type 2 diabetes mellitus and [...] antibiotic course. Recently seen by GI at [facility] [place] LISA Whitfield on February 22. She [...] K80.80) Mrs. Marlow is a 48-year-old female Mohawk-speaking patient with type 2 diabetes mellitus and multiple psych issues here for abdominal pain. Two days ago, she went to [facility] for recurrent abdominal pain. Ultrasound of [...] transfusion. Otherwise, she will be referred to central service supply distributor. I have rendered the services for this patient under direct supervision of Dr. Mojica, who did not see the patient but was available upon request 07/12/2024 Anemia, unspecified type (ICD-10 - D64.9) Mrs. Marlow is a 48-year-old female Mohawk-speaking patient with type 2 diabetes mellitus and multiple psych issues here for abdominal pain. Two days ago, she went to [facility] for recurrent abdominal pain. Ultrasound of [...] transfusion. Otherwise, she will be referred to central service supply distributor. I have rendered the services for this patient under direct supervision of Dr. Mojica, who did not see the patient but was available upon request 07/18/2024 Other cholelithiasis without obstruction (ICD-10 - K80.80) 08/08/2024 Other cholelithiasis without obstruction (ICD-10 - K80.80) 08/15/2024 Pre-operative clearance (ICD-10 - Z01.818) Mrs. Marlow is a 49-year-old female Mohawk-speaking patient with type 2 diabetes mellitus and [...] Z00.00) Mrs. Marlow is a 49-year-old female Mohawk-speaking patient with type 2 diabetes mellitus anxiety [...] D64.9) Mrs. Marlow is a 49-year-old female Mohawk-speaking patient with type 2 diabetes mellitus anxiety [...] 09/14/2024 Anemia, unspecified type (ICD-10 - D64.9) 10/13/2024 Diabetes mellitus due to underlying condition with diabetic neuropathy, unspecified (ICD-10 - E08.40) Mrs. Marlow is a 49-year-old female Mohawk-speaking patient with type 2 diabetes mellitus anxiety, [...] She would like to establish care with geophysical laboratory chief. Referred pt. Anemia: - Iron is currently [...] D64.9) Mrs. Marlow is a 49-year-old female Mohawk-speaking patient with type 2 diabetes mellitus anxiety, [...] She would like to establish care with geophysical laboratory chief. Referred pt. Anemia: - Iron is currently [...] E11.9) Mrs. Marlow is a 49-year-old female Mohawk-speaking patient with type 2 diabetes mellitus anxiety, depression, history of H pylori is here for follow-up. Plan as follows: T2DM: - She is currently following with geophysical laboratory chief at [facility]. Glipizide has been recently added to [...] 6-12 months. - She follows with GI [facility]. She has an elective cholecystectomy surgery coming up at [facility]. PTSD: - referred patient to psychiatry I have rendered the services for this patient under direct supervision of Dr. Mojica, who did not see the patient but was available upon request 12/25/2024 Pain in right knee (ICD-10 - M25.561) Mrs. Marlow is a 49-year-old female Mohawk-speaking patient with type 2 diabetes mellitus anxiety, depression, history of H pylori is here for follow-up. She states that recently was seen by Dr. Jones for iron transfusion. She complains of right knee joint pain and cough. Plan is as follows Cough. Most likely viral. She has upcoming cholecystectomy at [facility]. We will do chest x-ray to [...] R05.9) Mrs. Marlow is a 49-year-old female Mohawk-speaking patient with type 2 diabetes mellitus anxiety, depression, history of H pylori is here for follow-up. She states that recently was seen by Dr. Jones for iron transfusion. She complains of right knee joint pain and cough. Plan is as follows Cough. Most likely viral. She has upcoming cholecystectomy at [facility]. We will do chest x-ray to [...] E11.9) Mrs. Marlow is a 49-year-old female Mohawk-speaking patient with type 2 diabetes mellitus anxiety, depression, history of H pylori is here for follow-up. Plan as follows: T2DM: - She is currently following with geophysical laboratory chief at [facility]. Glipizide has been recently added to [...] in 6-12 months. - She follows with [facility]. She has an elective cholecystectomy surgery coming up at [facility]. PTSD: - referred patient to psychiatry [...] this patient under direct supervision of Dr. Mojiac, who did not see the patient but was available upon request 01/15/2025 Migraine, unspecified, not intractable, without status migrainosus (ICD-10 - G43.909) 01/11/2025 Anemia, unspecified type (ICD-10 - D64.9) Mrs. Marlow is a 49-year-old female Mohawk-speaking patient with type 2 diabetes mellitus anxiety, depression, history of H pylori is here for follow-up. Plan as follows: T2DM: - She is currently following with geophysical laboratory chief at [facility]. Glipizide has been recently added to [...] in 6-12 months. - She follows with [facility]. She has an elective cholecystectomy surgery coming up at [facility]. PTSD: - referred patient to psychiatry [...] E08.40) Mrs. Marlow is a 48-year-old female Mohawk-speaking patient with type 2 diabetes mellitus and multiple psych issues here for abdominal pain. Two days ago, she went to [facility] for recurrent abdominal pain. Ultrasound of [...] transfusion. Otherwise, she will be referred to central service supply distributor. I have rendered the services for this patient under direct supervision of Dr. Mojica, who did not see the patient but was available upon request 11/03/2024 Anemia, unspecified type (ICD-10 - D64.9) Mrs. Marlow is a 49-year-old female Mohawk-speaking patient with type 2 diabetes mellitus anxiety, depression, history of H pylori is here for follow-up. Plan as follows: T2DM: - She is currently following with geophysical laboratory chief at [facility]. Glipizide has been recently added to [...] 6-12 months. - She follows with GI [facility]. She has an elective cholecystectomy surgery coming up at [facility]. PTSD: - referred patient to psychiatry I have rendered the services for this patient under direct supervision of Dr. Mojica, who did not see the patient but was available upon request 10/13/2024 Helicobacter pylori [H. pylori] as the cause of diseases classified elsewhere (ICD-10 - B96.81) Mrs. Marlow is a 49-year-old female Mohawk-speaking patient with type 2 diabetes mellitus anxiety, [...] She would like to establish care with geophysical laboratory chief. Referred pt. Anemia: - Iron is currently [...] N92.6) Mrs. Marlow is a 49-year-old female Mohawk-speaking patient with type 2 diabetes mellitus anxiety [...] she does not want tdap either 08/15/2024 Anemia, unspecified type (ICD-10 - D64.9) Mrs. aMrlow is a 49-year-old female Mohawk-speaking patient with type 2 diabetes mellitus and [...] D64.9) Mrs. Marlow is a 48-year-old female Mohawk-speaking patient with type 2 diabetes mellitus and [...] antibiotic course. Recently seen by GI [place] [facility] [place] LISA Whitfield on February 22. She [...] the above mentioned assessment and plan 03/08/2024 Menstrual periods irregular (ICD-10 - N92.6) Mrs. Marlow is a 48-year-old female Mohawk-speaking patient with type 2 diabetes mellitus and [...] antibiotic course. Recently seen by GI [place] [facility] [place] LISA Whitfield on February 22. She [...] N92.6) Mrs. Marlow is a 49-year-old female Mohawk-speaking patient with type 2 diabetes mellitus and [...] K80.80) Mrs. Marlow is a 49-year-old female Mohawk-speaking patient with type 2 diabetes mellitus anxiety [...] vaccination she does not want tdap either 01/11/2025 Gastro-esophageal reflux disease without esophagitis (ICD-10 - K21.9) Mrs. Marlow is a 49-year-old female Mohawk-speaking patient with type 2 diabetes mellitus anxiety, depression, history of H pylori is here for follow-up. Plan as follows: T2DM: - She is currently following with geophysical laboratory chief at [facility]. Glipizide has been recently added to [...] in 6-12 months. - She follows with [facility]. She has an elective cholecystectomy surgery coming up at [facility]. PTSD: - referred patient to psychiatry [...] patient but was available upon request 11/03/2024 Gastro-esophageal reflux disease without esophagitis (ICD-10 - K21.9) Mrs. Marlow is a 49-year-old female Mohawk-speaking patient with type 2 diabetes mellitus anxiety, depression, history of H pylori is here for follow-up. Plan as follows: T2DM: - She is currently following with geophysical laboratory chief at [facility]. Glipizide has been recently added to [...] in 6-12 months. - [facility] [facility] She has an elective cholecystectomy surgery coming up at [facility]. PTSD: - referred patient to psychiatry I have rendered the services for this patient under direct supervision of Dr. Mojica, who did not see the patient but was available upon request 01/11/2025 Post-traumatic stress disorder, unspecified (ICD-10 - F43.10) Mrs. Marlow is a 49-year-old female Mohawk-speaking patient with type 2 diabetes mellitus anxiety, depression, history of H pylori is here for follow-up. Plan as follows: T2DM: - She is currently following with geophysical laboratory chief at [facility]. Glipizide has been recently added to [...] 6-12 months. - She follows with GI [facility]. She has an elective cholecystectomy surgery coming up at [facility]. PTSD: - referred patient to psychiatry [...] F43.10) Mrs. Marlow is a 49-year-old female Mohawk-speaking patient with type 2 diabetes mellitus anxiety, depression, history of H pylori is here for follow-up. Plan as follows: T2DM: - She is currently following with geophysical laboratory chief at [facility]. Glipizide has been recently added to [...] 6-12 months. - She follows with GI [facility]. She has an elective cholecystectomy surgery coming up at [facility]. PTSD: - referred patient to psychiatry I have rendered the services for this patient under direct supervision of Dr. Mojica, who did not see the patient but was available upon request 08/15/2024 Other cholelithiasis without obstruction (ICD-10 - K80.80) Mrs. Marlow is a 49-year-old female Mohawk-speaking patient with type 2 diabetes mellitus and [...] K21.9) Mrs. Marlow is a 48-year-old female Mohawk-speaking patient with type 2 diabetes mellitus and [...] antibiotic course. Recently seen [place] [facility] [place] LISA Whitfield on February 22. She [...] with the above mentioned assessment and plan 01/11/2025 Migraine, unspecified, not intractable, without status migrainosus (ICD-10 - G43.909) Mrs. Marlow is a 49-year-old female Mohawk-speaking patient with type 2 diabetes mellitus anxiety, depression, history of H pylori is here for follow-up. Plan as follows: T2DM: - She is currently following with geophysical laboratory chief at [facility]. Glipizide has been recently added to [...] 6-12 months. - She follows with GI [facility]. She has an elective cholecystectomy surgery coming up at [facility]. PTSD: - referred patient to psychiatry [...] 23 HEMOGLOBIN A1C WITH EST GLUCOSE 01/29/20 TSH WITH REFLEX TO FT4 09/30/2022 Mammo: Diagnostic Mammogram Bilateral Xray: Knee Right (Standard, 4 Views) CBC/Differential (No Platelet)-[id number] CBC/Differential (No Platelet)-[id number] Albumin/Creatinine Ratio,Urine-[id number] Comp. Metabolic Panel [id number] 2024 A1c w/GlycoMark(R) Reflex-[id number] Future Test Test Name Order Date Iron and [id number] 11/03/2024 Ferritin-[id number] 11/03/2024 CBC/Differential (No Platelet)-[id number] Next Appt Details Provider Name:Eladio multani, 03/14/2025 11:00:00 AM, [address] [place] [address], [phone], Provider Name:Eladio multani, 07/13/2025 10:30:00 AM, [address] [place] [address], [phone], Insurance Providers Payer Name Payer Address Payer Phone Subscriber Number Group Number Insured Name Patient Relationship to Insured Coverage Start Date Coverage End Date [facility]) 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
--- OUTSIDE RECORDS SUMMARY | 2025-02-07 12:45 | XMS_ITS | Encounter Summary ---
Author Organization [facility] Address [address] [facility] [address] [place] [address] Phone Care Team Providers Care Financial Report Service Sales Agent Name Role Phone Alcon Pritchett A MD Primary Care Provider [phone] Reason for Visit * Reason Comments Med Change Request Encounter Details Date Type Department Care Team (Late Contact Info) Description 10/08/2023 Refill [facility] [address] [facility] [address] [place] [address] Catalino Younger MD [address] [address] Social History Tobacco Use Types [...] Encounters Date Type Department Care Team (Late Contact Info) Description 02/05/2026 1:30 PM EDT Office Visit [facility] [address] [address] Catalino Younger MD [address] [address] documented as of this encounter Visit Diagnoses Not on filedocumented in this encounter Care Teams Financial Report Service Sales Agent Relationship Specialty Start Date End Date Yarely Rondon MD [address] [place] [address] PCP - General Internal Medicine 04/07/23 documented as of this encounter
--- OUTSIDE RECORDS SUMMARY | 2025-02-07 12:45 | XMS_ITS | Clinical Summary ---
Author Organization [facility] Address [address] [place] [address] Phone Care Team Providers Care Screw Driver Operator Name Role Phone Alcon Yarely Vines MD Primary Care Provider [phone] Allergies No known active allergies Medications aspirin [...] 09/03/2023 09/03/2023 Obese class I 09/03/2023 09/03/2023 Encounters Date Type Department Care Team Description 02/06/2025 1:00 PM EDT [facility] [address] [address] Catalino Younger MD Type 2 diabetes mellitus with diabetic polyneuropathy (HCC) (Primary Dx); Other proteinuria from Last 3 Months Family History Medical History Relation Comments Diabetes [...] Office Visit [facility] [address] [address] Catalino Younger MD [address] [address] Health Maintenance Due Date Last Done Comments Breast Cancer Screening 1975 Hepatitis B Vaccine (1 of 3 - 19+ 3-dose series) 1993 02/08/2012, 08/13/2011, 12/05/2010 Pneumococcal Vaccine: 50+ Ye ars (2 of 2 - PCV) 08/13/2012 08/13/2011 Colorectal Cancer Screening: Annual FOBT 2023 Colorectal Cancer Screening: Colonoscopy 2023 Colorectal Cancer Screening: Sigmoidoscopy 2023 Diabetes: Hemoglobin A1C 09/06/2023 Diabetes: Ophthalmology Exam 09/06/2023 Diabetes: Pedal Pulse Checked 09/06/2023 Diabetes: Sensory Foot Exam 09/06/2023 Diabetes: Visual Foot Exam 09/06/2023 Influenza Vaccine (Season Ended) 2025 07/05/20 13 Pneumococcal Vaccine: Peds ( 0 to 5 Years) and At-Risk Patients (6 to 49 Years) Discontinued 08/13/2011 Insurance [facility] [employer] Care Teams Screw Driver Operator Relationship Specialty Start Date End Date Yarely Rondon MD [address] [place] [address] PCP - General Internal Medicine 04/07/23
--- NOTE | 2025-02-07 14:00 | AM.OFFVISNUR ---
Intake Visit Reasons: hpylori Allergies No Known Allergies Allergy (Verified 01/22/25 13:38) Nursing Note Patient presents for collection of H Pylori breath test. Patient has been fasting for 1 hour (nothing to eat, drink, no chewing gum or smoking) has not taken any antacid medication for at least 2 weeks and has no allergies to artificial sweeteners.?? Assessment & Plan Assessment & Plan (1) GERD (gastroesophageal reflux disease): Code(s): K21.9 - Gastro-esophageal reflux disease without esophagitis Category: Medical Qualifiers: Esophagitis presence: without esophagitis Qualified Code(s): K21.9 - Gastro-esophageal reflux disease without esophagitis Plan Patient presents for collection of H Pylori breath test. Patient has been fasting for 1 hour (nothing to eat, drink, no chewing gum or smoking) has not taken any antacid medication for at least 2 weeks and has no allergies to artificial sweeteners.???This test checks for an overgrowth of bacteria in your stomach. We all have bacteria but some may have more than others. It is treatable. if the test comes back negative there is nothing else to do. If the test result is positive we will treat you with 2 antibiotics and a medication to decrease the acid in your stomach (PPI) for 2 weeks. Two weeks after you have completed the treatment we will retest you to make sure the overgrowth has resolved. Patient Instructions: Process for specimen collection and reason for testing was explained to the patient. Specimen collection. Patient instructed to take a deep breath and then exhale into the blue bag, filling it up as much as possible. Patient instructed to drink a mixture of water and the artificial sweetener with a straw. A 15 minute wait period was observed. Patient instructed to take a deep breath and then exhale into the pink bag, filling it up as much as possible. Coding Level of Care Code Established Pt Est Pt Level 1 (22869) Patient Type Established Medical Decision Making Straight Forward Diagnoses Gastroesophageal reflux disease without esophagitis K21.9 Esophagitis presence: without esophagitis
== END 2025-02-07 13:54 | disposition home or self-care (01) ==
LOC: HO.HGI 12:04
PROVIDERS: PCP Hospitalist; Visit Provider Nurse Practitioner Family
DX: K21.9 Gastro-esophageal reflux disease without esophagitis (principal)

== ENCOUNTER 2025-04-23 13:30 | Outpatient (AMB) | payer OTHER, SELFPAY ==
--- NOTE | 2025-04-23 13:32 | MHC.OFFVIS ---
Vital Signs 04/23/25 13:40 Height 5 ft 3 in Weight 187 lb BMI 33.1 Intake Visit Reasons: 30 min pls Intake Note: ESTABLISHED PATIENT for mgmt of GERD + CIC. Chief Complaint; C.O. difficulty with eating meals and intermittent appetite fluctuations. Pt had cholecystectomy in December and has been having trouble with the changes. Pole Classifier Required: Yes Pole Classifier Services: Pole Classifier Present Pole Classifier Name: Shahriar (Voice only) Information Interpreted: clinical only Accompanied by: Self / Same As Patient Allergies No Known Allergies Allergy (Verified 04/23/25 13:32) HPI HPI 30 min pls: Details: LAST VISIT Status post laparoscopic cholecystectomy GERD (gastroesophageal reflux disease) Postprandial epigastric pain Postprandial abdominal bloating Dyspepsia IBS (irritable bowel syndrome) Helicobacter pylori (H. pylori) Plan Patient will hold lansoprazole and will take famotidine twice a day for 2 weeks until her H pylori breath test. Patient can restart PPI after the testing. If positive we will treat empirically. Continue Linzess daily. Increase fluid intake and activity to remove it her bowels lately. Patient reports postprandial abdominal bloating. Discussed with her low FODMAP diet. List of food recommended as well as list of food to avoid given to patient. Patient will follow-up in 3 months, sooner on as needed basis. She is agreeable to this plan and verbalizes understanding of instructions. She was given the opportunity to ask questions and all questions answered. ? Thank you for allowing me to participate in her care Orders H Pylori Breath Test Today K21.9 On Hold lansoprazole Hold Comment: Doctor's Order 30 mg PO DAILY 90 caps 3RF K21.9 TODAY'S VISIT: Patient is here today for follow-up. Patient reports that she has been doing okay, however she still has epigastric pain. H pylori was negative. She reports that she is moving her bowels better. Patient is taking Linzess in the morning the 1st thing when she wakes up. Sometimes it causes her to have diarrhea. Patient denies melena, hematochezia, unintentional weight loss or ribbon like stools. Currently she is taking lansoprazole every morning. Patient reports that the epigastric pain is there is since she had cholecystectomy. Patient had upper endoscopy and colonoscopy scheduled for April 03 and she canceled the procedure as she was afraid of the anesthesia. Patient never had trouble with anesthesia in the past, not even after her surgery. Patient reports occasional dyspepsia without dysphagia or odynophagia. Patient reports that her symptoms are worse after she eats sweets and fatty food PFSH Medical History GERD (gastroesophageal reflux disease) Acid indigestion Back pain Palpitations Leukocytosis Depression Anxiety Asthma Migraine Type 2 diabetes mellitus with polyneuropathy Type 2 diabetes mellitus with hyperglycemia, with long-term current use of insulin Essential hypertension Vitamin D insufficiency Surgical History Hx of cholecystectomy History of esophagogastroduodenoscopy (EGD) H/O colonoscopy Hx of section Family History Father Hypertension Diabetes Heart disease Mother Diabetes Heart disease Hypertension Social History Household Members: Family and Children Are you a primary urgent care technician to a significant other at home: No Do you presently have visiting nurse or other home services: No Alcohol intake: current Alcohol intake frequency: does not drink Patient Tobacco Use Status: Never used Tobacco Second Hand Smoke Exposure: No Review of Systems Const Denies weight gain and Denies weight loss ENT Reports no additional complaints, Denies dysphagia and Denies odynophagia Card Reports no additional complaints Resp Reports no additional complaints GI Reports abdominal pain (Epigastric), Denies belching, Denies melena, Reports bloating, Denies change in bowel habits, Reports constipation, Denies dysphagia, Denies excessive flatus, Denies dyspepsia, Reports heartburn, Denies diarrhea, Denies loose stools, Denies nausea, Denies odynophagia and Denies vomiting Reports no additional complaints Musc Reports no additional complaints Neuro Reports no additional complaints Psych Reports no additional complaints Endo Reports no additional complaints Physical Exam Vital Signs: BMI result Body Mass Index 33.1 Const General: healthy appearing and no acute distress Nutritional Appearance: obese Orientation/consciousness: patient oriented x3 Resp Effort & Inspection: normal respiratory effort, able to speak in complete sentences, no tracheal deviation and symmetric chest movement Auscultation: clear to auscultation bilaterally Cardio Rate: regular rate GI Inspection: Yes normal to inspection, No distended and Yes obesity Palpation (GI): Soft to palpation, not firm, nontender and No hepatosplenomegaly present Auscultation: normal bowel sounds General: Yes no CVA tenderness Back/Spine/Pelvis Back: no CVA tenderness Skin General skin exam: elasticity normal, turgor normal and dry skin Neuro General: patient oriented x3 Psych Appearance: grossly normal Mental Status: mental status grossly normal Assessment & Plan Assessment & Plan (1) Status post laparoscopic cholecystectomy: Code(s): Z90.49 - Acquired absence of other specified parts of digestive tract Category: Surgical (2) GERD (gastroesophageal reflux disease): Code(s): K21.9 - Gastro-esophageal reflux disease without esophagitis Category: Medical Qualifiers: Esophagitis presence: without esophagitis Qualified Code(s): K21.9 - Gastro-esophageal reflux disease without esophagitis (3) Postprandial epigastric pain: Code(s): R10.13 - Epigastric pain (4) Postprandial abdominal bloating: Code(s): R14.0 - Abdominal distension (gaseous) (5) Dyspepsia: Code(s): R10.13 - Epigastric pain (6) Irritable bowel syndrome: Code(s): K58.9 - Irritable bowel syndrome, unspecified Qualifiers: Irritable bowel syndrome type: without diarrhea Qualified Code(s): K58.9 - Irritable bowel syndrome, unspecified Plan Patient will continue taking lansoprazole in the morning. Avoid dietary triggers in late night snacking. Staying upright for minimum 3 hours after meals discussed with patient. Patient will start taking famotidine at bedtime. Patient will avoid food high in fat. Low-fat, low carb diet recommended. Patient will be scheduled for upper endoscopy and colonoscopy. Message sent to Surgical scheduled to go procedure perforation. Patient did not had any issues with anesthesia in the past. Currently is on Lantus and should take half of the Lantus does night before and 2 nights before the procedure. What to expect before during and after procedure discussed with patient. Stressed importance of good bowel prep and clear liquid diet day before procedure. I will see her after the procedure, sooner on as needed basis. Patient is agreeable to this plan and verbalizes understanding of instructions. She was given the opportunity to ask questions and all questions answered. Thank you for allowing me to participate in her care Medications: New famotidine (Pepcid) 20 mg PO BEDTIME 30 tabs 3RF K21.9 - Gastro-esophageal reflux disease without esophagitis Refilled lansoprazole 30 mg PO DAILY 90 caps 3RF K21.9 - Gastro-esophageal reflux disease without esophagitis Coding Level of Care Code Est Pt Level 4 (80149) Complex EM visit Add On G2211 Diagnoses Status post laparoscopic cholecystectomy Z90.49 Gastroesophageal reflux disease without esophagitis K21.9 Esophagitis presence: without esophagitis Postprandial epigastric pain R10.13 Postprandial abdominal bloating R14.0 Dyspepsia R10.13 Irritable bowel syndrome without diarrhea K58.9 Irritable bowel syndrome type: without diarrhea Time Spent (min) 35 Comment 25 minutes spent with patient and additional 10 minutes spent reviewing her records
[2025-04-23 13:40] VITALS: BMI 33.1
--- OUTSIDE RECORDS SUMMARY | 2025-04-23 14:11 | XMS_ITS | Clinical Summary ---
Author Organization [facility] Address [address] [place] [address] Phone Care Team Providers Care Electroplater Name Role Phone Yarely Mojica MD Primary Care Provider [phone] Allergies No known active allergies Medications aspirin [...] 24 hr tablet 1 TABLET BY MOUTH DAILY,INSTR:MS BREAKFAST Active Active Problems Problem Noted Date Diagnosed Date Trigger ring finger of right hand 05/04/2023 Nodule of skin of hand 08/26/2022 Abnormal gait 04/08/2022 Backache 04/08/2022 Class 2 obesity 04/08/2022 Diabetic neuropathy ([facility] V24, [facility] V28) 0 04/08/2022 Essential hypertension 04/08/2022 Gastro-esophageal reflux disease without esophag itis 04/08/2022 Generalized anxiety disorder 04/08/2022 Insomnia 04/08/2022 Iron deficiency anemia 04/08/2022 Moderate recurrent major dep ression ([facility] V24, [facility] V28) 04/08/2022 Osteoarthrosis 04/08/2022 Transient ischemic attack 04/08/2022 Post-traumatic stress disorder 04/08/2022 Severe obesity (BMI >= 40) ([facility] V24, [facility] V28) 04/08/2022 Overview (08/17/2024): Body mass index (BMI) greater than 40 Encounters Date Type Department Care Team Description 03/23/2025 2:30 PM EDT Ancillary Procedure [facility] [address] [facility] [address] [place] [address] Shortness of breath from Last 3 Months Surgical History Surgery Date Site/Laterality Comments SECTION PROCEDURE: HISTORICAL Medical History Medical History Date Comments Diabetes mellitus type 2, co ntrolled, with complications ([facility] V24, [facility] V28) DX:Diabetes mellitus type 2, controlled, with complications ([facility]) Essential hypertension DX:Essent ial hypertension Anxiety [...] 85 10/31/2024 3:20 PM EST Temperature 36.7 C (98 F) 10/31/2024 3:04 PM EST Respiratory Rate 18 10/31/2024 3:20 PM EST Oxygen Saturation 100% 10/31/2024 3:04 PM EST Inhaled Oxygen Concentration - - Weight 86.2 kg (190 lb) 03/23/2025 2:46 PM EDT Height 160 cm (5' 3 ) 03/23/2025 2:46 PM EDT Body Mass Index 33.66 03/23/2025 2:46 PM EDT Plan of Treatment Health Maintenance Due Date Last Done Comments Diabetes: Annual GFR (Glomerular Filtration Rate) 1974 Diabetes: Annual Foot Exam 1984 Diabetes: Annual Retina Eye Exam 1984 Cervical Cancer Screening: P ap Smear 1995 Pneumococcal Vaccine: 50+ Years (2 of 2 - PCV) 08/13/2012 08/13/2011 DTaP,Tdap,and Td Vaccines (4 - Td or Tdap) 06/29/2021 06/29/2011, 12/05/2010, 11/07/2010 Cholesterol Screening (Lipid Panel) 09/05/2022 Colorectal Cancer Screening: Colonoscopy 09/05/2022 HIV Screening 09/05/2022 Hepatitis C Screening 09/05/2022 Social Influencers of Health Screening 09/05/2022 Diabetes: Annual Urine Albumin-Creatinine Ratio (uACR) 09/12/2022 02/01/2019 Diabetes: Blood Sugar Contro l Test (HGBA1C) 09/12/2022 Hypertension/CHF/CAD Annual BMP Blood Test 09/12/2022 Zoster Vaccines (1 of 2) 2024 Breast Cancer Screening 05/07/2024 05/07/2022 COVID-19 Vaccine (3 - 2023-2 5 season) 2024 02/18/2021, 01/28/2021 Depression Screening 09/27/2024 Influenza Vaccine (#1) 2025 3, 06/29/2011 MMR Vaccines Aged Out 12/05/2010, 11/07/2010 No longer eligible based on patient's age to complete this topic Hepatitis B Vaccines Completed 02/08/2012, 08/13/2011, 12/05/2010 HIB Vaccines Aged Out No longer eligi [...] to complete this topic RSV Immunization Patients Under 20 months Aged Out No longer eligible b ased on patient's age to complete this topic Varicella Vaccines Aged Out No longer eligible based on patient's age to complete this topic Procedures Procedure Name Priority Date/Time Associated Diagnosis Comments STRESS ECHOCARDIOGRAM EXERCISE Routine 03/23/2025 3:36 PM EDT Shortness of breath DADA SCREENING DIGITAL Routine 05/07/2022 8:06 AM EDT Encounter for screening mammogram for malignant neoplasm of breast from Last 3 Months or Most Recently Relevant to Health Maintenance Results * STRESS ECHOCARDIOGRAM EXERCISE (03/23/2025 3:36 PM EDT) BSA 1.96 m2 CV PACS STRESS Target HR 145 bpm CV PACS STRESS Baseline HR 78 bpm CV PACS STRESS Baseline SBP 128 mmHg CV PACS STRESS Baseline DBP 70 mmHg CV PACS STRESS O2 sat rest 99 % CV PACS STRESS Peak HR 167 bpm CV PACS STRESS Peak SBP 136 mmHg CV PACS STRESS Peak DBP 70 mmHg CV PACS STRESS O2 sat peak 99 % CV PACS STRESS Estimated workload 7.1 METS CV PACS STRESS Rate Pressure Product 22,712.0 mmHg*bpm CV PACS STRESS Percent HR 98 % CV PACS STRESS Exercise/injec tion duration (min) 5 min CV PACS STRESS Exercise/injec tion duration (sec) 42 sec CV PACS STRESS Angina Index 0 CV PACS STRESS Max HR Percent 98 % CV PA CS STRESS Anatomical Region Laterality Modality Ultrasound Narrative 03/23/2025 5:36 PM EDT This is an equivocal exercise echocardiogram stress test at a target heart rate. There is no significant enhancement of left ventricular contraction post exercise. Stress ECG was normal. Patient reported no symptoms during the stress test. Exercise capacity was average. Normal blood pressure response. Left Ventricle Left ventricle cavity size is normal. Systolic function is normal with an ejection fraction of 55-60%. There are no regional LV wall motion abnormalities. Right Ventricle Right ventricle cavity appears normal. Systolic function is normal. Mitral Valve There is no significant mitral valve regurgitation. There is no evidence of mitral valve stenosis. Aortic Valve The aortic valve is trileaflet. There is no regurgitation or stenosis. Study Details Overall the study quality was adequate. Stress Findings A Dakota protocol stress test was performed. Overall, the patient's exercise capacity was average. The patient reached stage 2. Total stress time was 5 min and 42 sec. The patient experienced no angina during the test. The test was stopped because the patient experienced fatigue. The patient requested the test to be stopped. The patient's hemodynamic response was adequate for diagnosis. Blood pressure demonstrated a normal response. Heart rate demonstrated a normal response. The patient reported no symptoms during the stress test. ECG Mrs. Del Valle is a 49-year-old female with past medical history of diabetes on insulin, hypertension, GERD, obesity and asthma who presents for evaluation of shortness of breath. The ECG shows normal sinus rhythm. There were no arrhythmias during stress. There were no arrhythmias during recovery. The result of the stress ECG was negative for ischemia. Echo Post Stress Left ventricular cavity size was unchanged from baseline. Left ventricular systolic function was unchanged from baseline. Normal wall motion, unchanged from baseline. Procedure Note Troy Sal NP / Celina Hernández MD - 03/23/2025 This is an equivocal exercise echocardiogram stress test at a targetheart rate. There is no significant enhancement of left ventricular contractionpost exercise. Stress ECG was normal. Patient reported no symptoms during the stress test. Exercise capacitywas average. Normal blood pressure response. us Eladio MCDERMOTT CV ECHO PROCEDURES Final Re sult * [facility] SCREENING DIGITAL (05/07/2022 8:06 AM EDT) Anatomical Region Laterality Modality Mammography 05/04/2022 2:48 PM EDT Narrative 05/07/2022 8:06 AM EDT [facility] Diagnostic Imaging Department [address] [place] [id number] Patient: ELE DEL VALLE /Age/Sex: 1975 - 47 - F Unit#: [id number] Location/Status: SPDIMAM/REG CLI Mnemonic/Ordering Site: [facility] Ordering Physician: YARELY MOJICA MD Dada Screening Digital - 05/04/22 - 1523 EXAM: [facility] Screening Digital EXAM DATE AND TIME: 05/04/2022 3:24 PM HISTORY: Screening. COMPARISON: 05/03/14 outside study TECHNIQUE: CC and MLO views of both breasts were obtained using full field digital mammography. Bilateral digital breast tomosynthesis was performed in the MLO projection. Computer aided detection with the Auterra 7.2-H was employed. TISSUE DENSITY: c. The [...] recall) RECOMMENDATION(S): 1: Repeat film(s) needed LEFT 70960, 05701 3340F, 7025F Dictating Physician: GAY HERNANDEZ MD Electronically Signed by: GAY HERNANDEZ MD Dic Date/Time: 05/07/22803 Sign date/Time: 05/07/22805 Procedure Note Gay Hernandez MD - 09/16/2022 [facility] Diagnostic Imaging Department [address] [place] [address] Patient: ELE DEL VALLE /Age/Sex: 1975 - 47 - F Unit#: [id number] Location/Status: [facility] CLI Mnemonic/Ordering Site: [facility] Ordering Physician: YARELY MOJICA MD [facility] Screening Digital - 05/04/22 - 1523 EXAM: [facility] Screening Digital EXAM DATE AND TIME: 05/04/2022 3:24 PM HISTORY: Screening. COMPARISON: 05/03/14 outside study TECHNIQUE: CC and MLO views of both breasts were obtained using fullfield digital mammography. Bilateral digital breast tomosynthesis was performedin the MLO projection. Computer aided detection with the [employer]erra 7.[employer] employed. TISSUE DENSITY: c. The breasts are [...] recall) RECOMMENDATION(S): 1: Repeat film(s) needed LEFT 90291, 91533 3340F, 7025F Dictating Physician: GAY HERNANDEZ MD Electronically Signed by: GAY HERNANDEZ MD Dic Date/Time: 05/07/22803 Sign date/Time: 05/07/22805 Yarely Mojica MD IMG BI PROCEDURES Final Result from Last 3 Months or Most Recently Relevant to Health Maintenance Insurance [facility] [employer] [facility] Care Teams Electroplater Relationship Specialty Start Date End Date Yarely Mojica MD [address] [place] [id number] PCP - General Internal Medicine 03/05/22
--- OUTSIDE RECORDS SUMMARY | 2025-04-23 14:11 | XMS_ITS | Encounter Summary ---
Author Organization [facility] Address [address] [facility] [address] [place] [address] Phone Care Team Providers Care Roll Off Driver Name Role Phone Alcon Pritchett A MD Primary Care Provider [phone] Reason for Visit * Reason Comments Med Change Request Encounter Details Date Type Department Care Team (Late Contact Info) Description 10/08/2023 Refill [facility] [address] [facility] [address] [place] [phone] Catalino Younger MD [address] [address] Social History Tobacco Use Types [...] [facility] [address] [address] Catalino Younger MD [address] [address] documented as of this encounter Visit Diagnoses Not on filedocumented in this encounter Care Teams Roll Off Driver Relationship Specialty Start Date End Date Yarely Rondon MD [address] [facility], [address] [place] [address] PCP - General Internal Medicine 03/16/25 documented as of this encounter
--- OUTSIDE RECORDS SUMMARY | 2025-04-23 14:11 | XMS_ITS | Clinical Summary ---
Author Organization [facility] Address [address] [place] [address] Care Team Providers Care Pig Breeder Name Role Phone Unavailable Primary Care Provider [...] complication, with long-term current use of insulin ([facility]) Take 1,000 mg by mouth 2 (two) times daily Per Endo 1 7 Active ADITYA PEN NEEDLE 32 gauge x 5/32 ndleIndications:T ype 2 diabetes mellitus without complication, with long-term current use of insulin ([facility]) Per Endo 0 7 Active ONGLYZA 5 mg tabletIndications :Type 2 diabetes mellitus without complication, with long-term current use of insulin ([facility]) Take by mouth once daily Per Endo 0 7 Active insulin glargine (LANTUS) 100 unit/mL injectionIndicati ons:Type 2 diabetes mellitus without complication, with long-term current use of insulin (CMS & [facility]) Per Endo 10 mL 7 Active canagliflozin (INVOKANA) 100 mg tabIndications:Ty pe 2 diabetes mellitus without complication, with long-term current use of insulin (CMS & [facility]) Take by mouth 7 Active betamethasone dipropionate [...] mcg/actuation inhalerIndication s:Mild intermittent asthma without complication ([facility]) Inhale 2 Puffs into the lungs every [...] 11/05/2018 Overview (07/02/2019): 09/29/18 - Seen at [place] [facility] c/o left sided chest pain x [...] (01/25/2017): Due to menorrhagia Mild intermittent asthma ([facility]) 01/25/2017 Type 2 diabetes mellitus without complication Overview (06/26/2019): F/U [facility] Endo 03/25/18 - Endo [...] Diagnosed Date Resolved Date Diabetic eye exam ([facility]) 11/17/2016 08/03/2018 Overview (11/17/2016): Per [...] 76 02/01/2019 11:30 AM EDT Temperature 36.8 C (98.2 F) 02/01/2019 11:30 AM EDT Respiratory Rate 16 02/01/2019 11:30 AM EDT Oxygen Saturation 100% 04/08/2018 10:17 AM EDT Inhaled Oxygen Concentration - - Weight 97.1 kg (214 lb) 02/01/2019 11:30 AM EDT Height 168 cm (5' 6.14 ) 02/01/2019 11:30 AM EDT Body Mass Index 34.39 02/01/2019 11:30 AM EDT Plan of Treatment Not on file Insurance [facility] [employer] [facility] [employer]
== END 2025-04-23 14:24 | disposition home or self-care (01) ==
LOC: HO.HGI 13:31
PROVIDERS: PCP Hospitalist; Visit Provider Nurse Practitioner Family
DX: Z90.49 Acquired absence of other specified parts of digestive tract (principal); K21.9 Gastro-esophageal reflux disease without esophagitis; R10.13 Epigastric pain; R14.0 Abdominal distension (gaseous); K58.9 Irritable bowel syndrome, unspecified
CPT/HCPCS: 99214; G2211

== ENCOUNTER → 2025-04-23 13:30 | Outpatient (BNVA) | payer OTHER, SELFPAY | PROVIDERS: PCP Hospitalist; Visit Provider Nurse Practitioner Family | DX: K21.9 Gastro-esophageal reflux disease without esophagitis (principal); K58.9 Irritable bowel syndrome, unspecified; R10.13 Epigastric pain; R14.0 Abdominal distension (gaseous); Z90.49 Acquired absence of other specified parts of digestive tract | CPT/HCPCS: 99212 ==

== ENCOUNTER 2025-05-12 13:15 | Emergency (ER) | payer OTHER, SELFPAY ==
--- NOTE | ~2025-05-12 | XR_ITS ---
CLINICAL HISTORY: cp 2 view chest x-ray Comparison: CR/SR - XR CHEST 2 VIEWS - 11/30/23 16:42 EST Findings: The lungs are clear. Normal size heart. No acute fracture. IMPRESSION: 1. No acute findings. This document has been electronically signed by: Peyton Hernández MD on 05/12/2025 14:57:24
--- NOTE | ~2025-05-12 | CT_ITS ---
CLINICAL HISTORY: chest pain, SOB CT angiography chest with contrast. 3D Postprocessing. Comparison: CR - XR CHEST 2V - 05/12/25 13:57 EDT Findings: The heart size is normal. RV/LV ratio is normal. Unremarkable thoracic aorta and great vessels. No aneurysm. No pulmonary artery filling defects. The visualized thyroid and mediastinum are unremarkable. No consolidation or effusion. The visualized upper abdomen is unremarkable. Status post cholecystectomy. No acute fractures. IMPRESSION: 1. No pulmonary embolus. No acute aortic syndrome. Lungs are grossly clear. This document has been electronically signed by: Karo Martinez MD on 05/12/2025 18:23:44
--- NOTE | 2025-05-12 13:17 | ECG_ITS ---
Test Reason : CP Blood Pressure : */* mmHG Vent. 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
[2025-05-12 13:30] VITALS: BP 155/75; PULSE 84; RESP 18; TEMP 36.8; O2SAT 99; BMI 32.9
--- NOTE | 2025-05-12 13:38 | ED.CHESTPAIN ---
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 Patient states that she has had intermittent chest pain for the last 3 days, however states that since today the chest pain has been constant. She describes this sensation as a tight like sensation. Patient reports that the pain worsens when she is lying on her left side. Denies any recent trauma, injury, or heavy lifting. She denies any known cardiac history, however states that she recently had a cardiac stress test, which was normal. Patient does report that she had a cholecystectomy 4 months ago, she does have an IUD, and also reports recent flight to [place] several months ago. She denies any known fevers. She does endorse subjective fevers and chills. Unable to discern whether not she is having palpitations however does report flutter like sensation. She states that she is currently comfortable, has not taken any many indications to treat her current pain. Denies any lower extremity swelling. She states that she has had this chest pain for 10 years however states that she has had increased shortness of breath over the last several days which is why she presented to the emergency room today. No other complaints or concerns at this time. MD complaint: chest pain Onset (ago): day(s) Timing of current episode: constant Prior episodes: Yes Onset: during rest Pain location: left chest Pain radiation: none Severity: moderate Quality: tightness Relieving factors: nothing Exacerbating factors: palpation and movement Context: recent surgery and recent travel Treatment prior to arrival: none Risk Factors Coronary artery disease risk factors: diabetes and hypertension Thoracic aortic dissection risk factors: none Related Data Home Medications ?Medication ?Instructions ?Recorded ?Confirmed albuterol sulfate 90 mcg/actuation 2 puff inhalation Q4-5H PRN 07/04/20 03/29/25 aerosol inhaler Shortness Of Breath amitriptyline 25 mg tablet 25 mg PO DAILY 07/04/20 03/29/25 fluticasone propionate 50 1 spray intranasal DAILY 07/04/20 01/08/25 mcg/actuation nasal spray,suspension (Flonase Allergy Relief) hydroxyzine HCl 25 mg tablet 25 mg PO BEDTIME 07/04/20 03/29/25 lisinopril 10 mg tablet 10 mg PO DAILY 07/04/20 03/29/25 quetiapine 25 mg tablet (Seroquel) 25 mg PO BEDTIME 07/04/20 03/29/25 zolpidem 10 mg tablet (Ambien) 10 mg PO BEDTIME PRN Insomnia 07/04/20 03/29/25 blood sugar diagnostic #10 ea 07/15/20 01/08/25 loratadine 10 mg tablet (Allergy 10 mg PO DAILY PRN Allergy Symptoms 12/16/20 01/08/25 Relief (loratadine)) meloxicam 7.5 mg tablet 7.5 mg PO DAILY 05/02/21 03/29/25 aspirin 81 mg tablet,delayed 81 mg PO DAILY 11/22/23 03/29/25 release calcium carbonate 500 mg PO BID 11/22/23 03/29/25 latanoprost 0.005 % eye drops 1 drp ophthalmic (eye) BEDTIME 11/22/23 01/08/25 metoprolol tartrate 25 mg tablet 12.5 mg PO BID 11/22/23 03/29/25 flash glucose scanning reader #1 ea 09/04/24 01/08/25 (FreeStyle Sal 2 Carver) gabapentin 300 mg capsule 300 mg PO TID 09/04/24 03/29/25 levonorgestrel 20.4 mcg/24 hr (up intrauterine 09/04/24 01/08/25 to 8 yrs) 52 mg intrauterine device (Liletta) metoclopramide HCl 10 mg tablet mg 12/29/24 01/08/25 ubrogepant 50 mg tablet (Ubrelvy) mg PO 01/22/25 aripiprazole 2 mg tablet (Abilify) 2 mg PO DAILY 03/29/25 03/29/25 prazosin 1 mg capsule 1 mg PO BEDTIME 03/29/25 03/29/25 Previous Rx's ?Medication ?Instructions ?Recorded blood sugar diagnostic (FreeStyle 1 strip miscellaneous .qd 90 days 06/26/21 Lite Strips) #100 strips glucose 4 gram chewable tablet 12 g (3 x 4 gram) PO Q15M PRN 06/26/21 (Dex4 Glucose) hypoglycemia 90 days #60 tabs pen needle, diabetic 32 gauge x #150 ea 06/26/21 cholecalciferol (vitamin D3) 50 50 mcg PO DAILY #30 caps 10/09/21 mcg (2,000 unit) capsule pen needle, diabetic 32 gauge x #125 ea 01/01/22 (BD Ultra-Fine Che Pen Needle) insulin glargine 100 unit/mL (3 32 unit (0.32 mL) subcut QAM 90 02/12/22 mL) subcutaneous pen (Lantus days #28.8 mL Solostar U-100 Insulin) triamcinolone acetonide 0.5 % 1 appl topical BID apply to rash 03/20/22 topical cream on chest #15 grams flash glucose sensor (FreeStyle 1 ea topical Q2W 90 days #6 ea 04/28/22 Sal 14 Day Sensor kit) insulin lispro 100 unit/mL See Rx Instructions subcut TID #15 07/02/22 subcutaneous pen mL metformin 1,000 mg tablet 1,000 mg PO BID 30 days #60 tabs 08/25/22 simethicone 125 mg capsule (Gas 125 mg PO TID-QID PRN abdominal 12/22/23 Relief (simethicone)) distention #120 caps lorazepam 1 mg tablet (Ativan) 1 mg PO BID PRN anxiety #4 tabs 02/04/24 ferrous gluconate 324 mg (37.5 mg 324 mg PO BID #60 tabs 07/10/24 iron) tablet polyethylene glycol 3350 17 17 g PO DAILY #510 grams 07/10/24 gram/dose oral powder (Miralax) bisacodyl 5 mg tablet,delayed 10 mg (2 x 5 mg) PO BEDTIME #180 09/04/24 release (Dulcolax (bisacodyl)) tabs alprazolam 0.5 mg tablet 0.5 mg PO BEDTIME PRN 12/31/24 anxiety/sleep #20 tabs linaclotide 145 mcg capsule 145 mcg PO DAILY #30 caps 02/07/25 (Linzess) famotidine 20 mg tablet (Pepcid) 20 mg PO BEDTIME #30 tabs 04/23/25 lansoprazole 30 mg capsule,delayed 30 mg PO DAILY #90 caps 04/23/25 release Allergies Allergy/AdvReac Type Severity Reaction Status Date / Time No Known Allergies Allergy Verified 05/12/25 13:38 Review of Systems Review of Systems: Yes all other systems are reviewed and are negative Constitutional: Constitutional: Reports as per [facility] Past Medical History Medical History GERD (gastroesophageal reflux disease) Acid indigestion Back pain Palpitations Leukocytosis Depression Anxiety Asthma Migraine Type 2 diabetes mellitus with polyneuropathy Type 2 diabetes mellitus with hyperglycemia, with long-term current use of insulin Essential hypertension Vitamin D insufficiency Surgical History Hx of cholecystectomy History of esophagogastroduodenoscopy (EGD) H/O colonoscopy Hx of section Family History Family History Father Hypertension Diabetes Heart disease Mother Diabetes Heart disease Hypertension Social History Social History Household Members: Family and Children Are you a primary urgent care physician to a significant other at home: No Do you presently have visiting nurse or other home services: No Alcohol intake: current Alcohol intake frequency: does not drink Patient Tobacco Use Status: Never used Tobacco Smoked in Last 30 Days: No Second Hand Smoke Exposure: No Use of substances other than those prescribed or required for medical reasons: No Advance Directives: No Advance Directives Information Provided: Yes Patient : No Physical Exam Vital Signs: Vital Signs: Last Vital Signs Temp 98.1 F 05/12/25 19:57 Pulse 79 05/12/25 19:57 Resp 16 05/12/25 19:57 BP 116/81 05/12/25 19:57 Pulse Ox 100 05/12/25 19:57 O2 Del Method Room Air 05/12/25 19:57 BMI result Body Mass Index 32.9 Const: General: cooperative, comfortable and no acute distress Orientation/consciousness: patient oriented x3 Limitations: no limitations HEENT: Head: Yes normal to inspection, Yes normocephalic and Yes atraumatic Ears: hearing grossly normal bilaterally General nose exam: Normal external nose present Face and sinus: Yes normal facial exam Mouth: Normal oral and palatal mucosa present, oropharynx normal and moist mucous membranes Throat: Yes posterior oropharynx normal Eyes: General: appearance normal, both eyes and all related structures Eyelids: Yes eyelids normal Conjunctivae: conjunctivae normal Sclerae: sclerae normal Pupils: Equal, round and reactive pupils present EOM: EOMs intact bilaterally Neck: Neck: Yes normal visual inspection, Yes full ROM and Yes no lymphadenopathy Lymphatic: no lymphadenopathy noted Chest: Other: Mild tenderness to palpation along the anterior chest wall. No overlying skin changes or warmth. Chest palpation & inspection: normal inspection of the chest Resp: Effort & Inspection: normal respiratory effort and able to speak in complete sentences Auscultation: clear to auscultation bilaterally, no crackles, no rales, no rhonchi and no wheezes Cardio: Rate: regular rate Rhythm: regular rhythm Heart sounds: S1 normal heart sound present and S2 normal heart sound present GI: Inspection: Yes normal to inspection Skin: General skin exam: no rashes or lesions noted Trauma: no lacerations or abrasions Wounds: no wounds Neuro: General: patient oriented x3 and moves all extremities Cranial nerves: Yes Equal, round and reactive pupils present Extrem: General: Yes normal to inspection Right upper extremity: normal to inspection Left upper extremity: normal to inspection Right lower extremity: normal to inspection Left lower extremity: normal to inspection Course Course Course Narrative: 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 Defer additional HPI, ROS and PE to primary provider. 50 yo female with PMH of DM, HTN, GERD, anemia here with complaints of intermittent chest tightness/shortness of breath x 3 days. Patient reports had negative stress test one month ago at [facility] which was ordered by her PCP. Will obtain labs, EKG, CXR VSS Medications Administered Discontinued Medications Generic Name Dose Route Start Last Admin Trade Name Freq PRN Reason Stop Dose Admin Iohexol 65 ml 05/12/25 16:59 05/12/25 17:00 Iohexol 350 Mg/Ml 100 Ml Infus..Btl IV 05/12/25 17:00 65 ml ONCE ONE Administration Medical Decision Making Medical Decision Making [facility] Narrative: This is a 50-year-old female, with a past medical history of asthma, diabetes, hypertension, who presents emergency department with concerns of intermittent chest pain, as well as shortness for breath. On arrival, blood pressure mildly elevated at 150 5/75, all other vital signs within normal limits. She is speaking full sentences under no acute distress. Lungs are clear to auscultation bilaterally. She did have recent travel, surgery, and is on an IUD, unable to report if this is a hormonal IUD therefore she is at risk for pulmonary embolism. Unable to use PERC score given these factors. She is not hypoxic or tachycardic. Her presentation does not appear to be a pulmonary embolism however we are unable to rule this out without a CTA. Will obtain labs to rule out any electrolyte derangement. Patient has been seen here numerous times, states that she has had this ongoing chest pain for 10 years however over the last several days she has had shortness for breath which is atypical of her chest pain therefore will obtain cardiac workup. Course: EKG nonischemic, labs returned, she has slight leukocytosis at 13 however no left shift, likely reactive, she does have a history of leukocytosis in the past, this appears to be at around her baseline. Random glucose 209, no electrolyte derangement. Negative troponin. Given that her chest pain has been ongoing for the last several days, no need to repeat. CTA revealing no pulmonary embolism, no acute aortic syndrome, lungs are grossly clear. I discussed this with patient as well as daughter at bedside. Patient eager for discharge. Given strict return precautions. She will follow-up with her primary care physician. She understands agrees with plan. Vital signs remained stable. She is comfortable, in no acute distress. Patient stable for discharge. Differential Diagnosis Differential Diagnoses: The differential diagnosis associated with the presentation includes ACS, costochondritis, atypical chest pain, muscle strain, PE Admission/Observation Consideration of admission/observation: Escalation of care including admission/observation considered Escalation of care including admission/observation considered however given workup today not warranted at this time. Lab Data [facility] Lab Attestation statement: I reviewed the patient's lab results. See MDM and course 05/12/25 13:49 05/12/25 13:49 Labs: Lab Results 05/12/25 05/12/25 05/12/25 Range/Units 13:49 16:16 17:04 WBC 13.0 H (4.8-10.8) X10*3/uL RBC 4.90 (4.20-5.50) X10*6/uL Hgb 14.0 (12.0-16.0) g/dl Hct 41.8 (37.0-47.0) % MCV 85.3 (80.0-98.0) fL MCH 28.6 (27.0-33.0) pg MCHC 33.5 (31.0-35.0) g/dl RDW 12.9 (11.0-16.0) % Plt Count 348 (160-400) X10*3/uL MPV 10.8 (9.4-12.3) fL Immature Gran % (Auto) 0.3 (0.0-0.4) % Neut % (Auto) 63.2 (45-73) % Lymph % (Auto) 29.9 (20-40) % [place] % (Auto) 5.4 (2-11) % Eos % (Auto) 0.8 (0-4) % Baso % (Auto) 0.4 (0-2) % Lymph # (Auto) 3.9 (1.2-4.9) X10*3/uL [place] # (Auto) 0.7 (0.1-1.2) X10*3/uL Eos # (Auto) 0.1 (0.0-0.4) X10*3/uL Baso # (Auto) 0.1 (0.0-0.2) X10*3/uL Abs Immat Gran (auto) 0.04 H (0.00-0.03) X10*3/uL Absolute Neuts (auto) 8.2 (2.0-8.3) x10*3/uL Absolute Nucleated RBC 0.000 (0.0-0.012) X10*3/uL Nucleated RBC % (auto) 0.0 (0.0-0.2) /100WBC Sodium 138 (135-145) mmol/L Potassium 4.0 (3.3-5.1) mmol/L Chloride 106 (96-108) mmol/L Carbon Dioxide 23 (22-29) mmol/L Anion Gap 13 (12-20) BUN 9 (9-16) mg/dL Creatinine 0.64 (0.5-1.4) mg/dL Estim Creat Clear Calc 106.9 Estimated GFR > 60 POC Glucose 105 (60-115) mg/dL Random Glucose 209 H (60-115) mg/dL Calcium 9.9 (8.4-10.2) mg/dL Total Bilirubin 0.3 (0.0-1.0) mg/dL Direct Bilirubin 0.1 (0.0-0.5) mg/dL AST 23 (5-31) U/L ALT 23 (0-31) U/L Alkaline Phosphatase 79 (39-117) U/L Troponin I High Sens < 2.7 (<3.5-17.0) ng/L Total Protein 8.0 (6.5-8.0) g/dL Albumin 4.5 (3.5-5.0) g/dL Influenza Type A (PCR) NEGATIVE (Negative) Influenza Type B (PCR) NEGATIVE (Negative) RSV RNA Qual (PCR) NEGATIVE (Negative) SARS-CoV-2 RNA (RT-PCR) NEGATIVE (Negative) Independent Interpretation I performed an independent interpretation of an: EKG Interpretation: EKG normal sinus rhythm at a ventricular rate of 78 beats per minute, MO interval 178, QT QTC 374/426, no STEMI. Radiology Impression Discussion of test interpretation with radiology: I have reviewed the radiologist's reading. Radiologist Impression: Findings: The heart size is normal. RV/LV ratio is normal. Unremarkable thoracic aorta and great vessels. No aneurysm. No pulmonary artery filling defects. The visualized thyroid and mediastinum are unremarkable. No consolidation or effusion. The visualized upper abdomen is unremarkable. Status post cholecystectomy. No acute fractures. IMPRESSION: 1. No pulmonary embolus. No acute aortic syndrome. Lungs are grossly clear. This document has been electronically signed by: Karo Martinez MD on 05/12/2025 18:23:44 Dictated By: Karo Martinez MD Comparison: CR/SR - XR CHEST 2 VIEWS - 11/30/23 16:42 EST Findings: The lungs are clear. Normal size heart. No acute fracture. IMPRESSION: 1. No acute findings. This document has been electronically signed by: Peyton Hernández MD on 05/12/2025 14:57:24 Dictated By: Peyton Hernández MD Discharge Plan Discharge Clinical Impression: Chest pain Patient Disposition: Home, Self-Care Instructions: Chest Pain (ED) Additional Instructions: You were seen in the emergency department due to left-sided chest pain. Your overall workup today was reassuring. Your CT scan of your chest did not show any pulmonary embolism or any abnormalities. You need to follow-up with your primary care physician and/or autoglazier for further management. Drink plenty of fluids get plenty of rest. If any new or worsening symptoms occur including but not limited to severe chest pain, shortness of breath, please return for re-evaluation. Prescriptions: No Action FreeStyle Lite Strips Strip 1 strip miscellaneous .qd 90 Days Qty: 100 10RF glucose [Dex4 Glucose] 4 gram tablet,chewable 12 g PO Q15M PRN (Reason: hypoglycemia) 90 Days Qty: 60 3RF Rx Instructions: until symptoms of low blood sugar are controlled (DME) pen needle, diabetic 32 gauge x 5/32 needle See Rx Instructions subcut .MEDSUPPLY Qty: 150 11RF Rx Instructions: Once a day cholecalciferol (vitamin D3) 50 mcg (2,000 unit) capsule 50 mcg PO DAILY Qty: 30 11RF Lantus Solostar U-100 Insulin 100 unit/mL (3 mL) insulin pen 32 unit subcut QAM 90 Days Qty: 28.8 1RF FreeStyle Sal 14 Day Sensor Kit 1 ea topical Q2W 90 Days Qty: 6 11RF insulin lispro 100 unit/mL insulin pen See Rx Instructions subcut TID Qty: 15 5RF Rx Instructions: 4 units before breakfast and dinner and 6 units before lunch subcut 3 times a day; 4 units before breakfast and dinner and 6 units before lunch subcut 3 times a day; subcutaneously 3 times a day; metformin 1,000 mg tablet 1,000 mg PO BID 30 Days Qty: 60 0RF Rx Instructions: FUTURE REFILLS FROM PCP. Linzess 145 mcg capsule 145 mcg PO DAILY Qty: 30 2RF triamcinolone acetonide 0.5 % cream 1 appl topical BID Qty: 15 0RF metoclopramide HCl 10 mg Tablet alprazolam 0.5 mg tablet 0.5 mg PO BEDTIME PRN (Reason: anxiety/sleep) Qty: 20 0RF prazosin 1 mg Capsule 1 mg PO BEDTIME aripiprazole [Abilify] 2 mg Tablet 2 mg PO DAILY lorazepam [Ativan] 1 mg tablet 1 mg PO BID PRN (Reason: anxiety) Qty: 4 0RF Rx Instructions: Please be aware that this medication can cause addiction/dependence polyethylene glycol 3350 [Miralax] 17 gram/dose powder 17 g PO DAILY Qty: 510 0RF ferrous gluconate 324 mg (37.5 mg iron) tablet 324 mg PO BID Qty: 60 0RF (DME) FreeStyle Precision Krunal Strips Strip See Rx Instructions .ROUTE DAILY Qty: 10 Rx Instructions: As directed meloxicam 7.5 mg tablet 7.5 mg PO DAILY hydroxyzine HCl 25 mg tablet 25 mg PO BEDTIME zolpidem [Ambien] 10 mg tablet 10 mg PO BEDTIME PRN (Reason: Insomnia) quetiapine [Seroquel] 25 mg tablet 25 mg PO BEDTIME fluticasone propionate [Flonase Allergy Relief] 50 mcg/actuation spray,suspension 1 spray intranasal DAILY Rx Instructions: administer into each nostril amitriptyline 25 mg tablet 25 mg PO DAILY lisinopril 10 mg tablet 10 mg PO DAILY albuterol sulfate 90 mcg/actuation HFA aerosol inhaler 2 puff inhalation Q4-5H PRN (Reason: Shortness Of Breath) loratadine [Allergy Relief (loratadine)] 10 mg tablet 10 mg PO DAILY PRN (Reason: Allergy Symptoms) (DME) pen needle, diabetic [BD Ultra-Fine Che Pen Needle] 32 gauge x 5/32 needle See Rx Instructions .ROUTE .MEDSUPPLY Qty: 125 6RF Rx Instructions: As directed four times a day lansoprazole 30 mg capsule,delayed release(DR/EC) 30 mg PO DAILY Qty: 90 3RF famotidine [Pepcid] 20 mg tablet 20 mg PO BEDTIME Qty: 30 3RF aspirin 81 mg tablet,delayed release (DR/EC) 81 mg PO DAILY latanoprost 0.005 % drops 1 drp ophthalmic (eye) BEDTIME metoprolol tartrate 25 mg tablet 12.5 mg PO BID calcium carbonate 500 mg calcium (1,250 mg) tablet,chewable 500 mg PO BID simethicone [Gas Relief (simethicone)] 125 mg capsule 125 mg PO TID-QID PRN (Reason: abdominal distention) Qty: 120 2RF gabapentin 300 mg capsule 300 mg PO TID (DME) FreeStyle Sal 2 Carver Misc See Rx Instructions .ROUTE .MEDSUPPLY Qty: 1 Rx Instructions: As directed Liletta 20.4 mcg/24 hr (8 yrs) 52 mg intrauterine device intrauterine bisacodyl [Dulcolax (bisacodyl)] 5 mg tablet,delayed release (DR/EC) 10 mg PO BEDTIME Qty: 180 4RF Ubrelvy 50 mg tablet PO Interventions: ED Discharge Assessment Last Done: 05/12/25 19:57 Discharge Date/Time: 05/12/25 19:58 Print Language: Other
[2025-05-12 13:52] LABS: MANUAL DIFF FLAG NO
[2025-05-12 14:03] LABS: Hematocrit 41.8 % (37.0-47.0); Hemoglobin 14.0 g/dl (12.0-16.0); Imm Gran Abs Auto 0.04 X10*3/uL (0.00-0.03); Imm Gran Pct Auto 0.3 % (0.0-0.4); Lymphocytes Absolute Auto 3.9 X10*3/uL (1.2-4.9); Mean Corpuscular HGB Conc 33.5 g/dl (31.0-35.0); Mean Corpuscular Hemoglobin 28.6 pg (27.0-33.0); Mean Corpuscular Volume 85.3 fL (80.0-98.0); NRBC Abs Auto 0.000 X10*3/uL (0.0-0.012); NRBC Pct Auto 0.0 /100WBC (0.0-0.2); Platelet Count 348 X10*3/uL (160-400); Red Blood Count 4.90 X10*6/uL (4.20-5.50); White Blood Count 13.0 X10*3/uL (4.8-10.8)
--- OUTSIDE RECORDS SUMMARY | 2025-05-12 14:03 | XMS_ITS | Patient Health Record ---
Author Organization [facility] Address [address] [place] [address] Care Team Providers Care Bailer Tenders Supervisor Name Role Phone ALBERT MOJICA Primary Care Provider [phone] YeseniaCliff multaniphylicia Unavailable [phone] UvaldoArsen maloneysumeet Unavailable [phone] Allergies Allergen (clinical drug ingredient) Drug/Non Drug Allergy documented on EMR Reaction Allergy Type Onset Date Status dulaglutide Trulicity nausea/headache Drug Allergy Active Results Component Value Reference Range Notes Comp. Metabolic Panel (14)-3 [id number] Reviewed date:08/18/2024 11:12:10 AM Interpretation: Performing Lab:[facility], [address] [facility], [place], Phone - [phone], Director - Lissette Notes/Report: Glucose 144 70-99 [...] (SGPT) 11 0-32 IU/L CBC With Differential/Platel et-[id number] Reviewed date:08/18/2024 11:13:49 AM Interpretation: Performing Lab:[facility], Phone - [phone], Director - Lissette Notes/Report: WBC 12.4 3.4-10.8 x10E3/uL Effective August 28, 2024 profile [id number] WBC will be made non-orderable as a [...] Immature Grans (Abs) 0.0 0.0-0.1 x10E3/uL Hemoglobin [id number] Reviewed date:08/18/2024 11:01:17 AM Interpretation: Performing Lab:Laura Goddard, [facility], [place], Phone - [phone], Director - Lissette Notes/Report: Hemoglobin A1c 7.0 4.8-5.6 % . Prediabetes: 5.7 - 6.4 Diabetes: >6.4 Glycemic control for adults with diabetes: <7.0 CBC With Differential/Platel et-[id number] Reviewed date:03/06/2025 11:44:54 AM Interpretation: Performing Lab:[facility] [address], Phone - [phone], Director - Lissette Notes/Report: WBC 10.0 3.4-10.8 x10E3/uL RBC 4.82 3.77-5.28 x10E6/uL Hemoglobin 14.0 11.1-15.9 g/dL Hematocrit 42.7 34.0-46.6 % MCV 89 79-97 fL MCH 29.0 26.6-33.0 pg MCHC 32.8 31.5-35.7 g/dL RDW 12.9 11.7-15.4 % Platelets 320 150-450 x10E3/uL Neutrophils 68 Not Estab. % Lymphs 25 Not Estab. % Monocytes 6 Not Estab. % Eos 1 Not Estab. % Basos 0 Not Estab. % Neutrophils (Absolute) 6.8 1.4-7.0 x10E3/uL Lymphs (Absolute) 2.5 0.7-3.1 x10E3/uL Monocytes(Absolute) 0.6 0.1-0.9 x10E3/uL Eos (Absolute) 0.1 0.0-0.4 x10E3/uL Baso (Absolute) 0.0 0.0-0.2 x10E3/uL Immature Granulocytes 0 Not Estab. % Immature Grans (Abs) 0.0 0.0-0.1 x10E3/uL Ferritin-[id number] Reviewed date:03/06/2025 11:45:13 AM Interpretation: Performing Lab:[facility] [address], Phone - [phone], Director - Lissette Notes/Report: Ferritin 24 15-150 ng/mL Iron and TIBC-[id number] Reviewed date:03/06/2025 11:45:02 AM Interpretation: Performing Lab:[facility] [address], Phone - [phone], Director - Marikay Notes/Report: Iron Bind.Cap.(TIBC) 330 250-450 ug/dL UIBC 267 131-425 ug/dL Iron 63 27-159 ug/dL Iron Saturation 19 15-55 % CBC With Differential/Platel et-[id number] Reviewed date:07/18/2024 10:47:00 PM Interpretation: Performing Lab:[facility] [address], Phone - [phone], Director - [facility] Notes/Report: WBC 12.9 3.4-10.8 x10E3/uL RBC 4.35 [...] % Immature Grans (Abs) 0.1 0.0-0.1 x10E3/uL Hemoglobin M1p-[id number] Reviewed date:10/19/2024 02:31:00 PM Interpretation: Performing Lab:[facility] [place], [address] [facility], [place], Phone - [phone], Director - IDSuzette Notes/Report: Hemoglobin A1c 7.5 4.8-5.6 % . Prediabetes: 5.7 - 6.4 Diabetes: >6.4 Glycemic control for adults with diabetes: <7.0 Rell Donaldson CMP14 Default A hand-written panel/profile was received from your office. In accordance with the [facility] Ambiguous Test Code Policy dated March 2003, we have completed your order by using the closest currently or formerly recognized AMA panel. We have assigned Comprehensive Metabolic Panel (14), Test Code #071955 to this request. If this is not the testing you wished to receive on this specimen, please contact the [facility] Client Inquiry/Technical Services Department to clarify the test order. We appreciate your business. Comp. Metabolic Panel (14)-3 Reviewed date:10/19/2024 02:29:35 PM Interpretation: Performing Lab:[facility], [facility], Phone - [phone], Director - Marikay Notes/Report: Glucose 133 70-99 mg/dL BUN 8 [...] 0-40 IU/L ALT (SGPT) 9 0-32 IU/L Iron and TIBC-[id number] Reviewed date:07/18/2024 01:55:05 PM Interpretation: Performing Lab:[facility], [address] [facility], [place], Phone - [phone], Director - Bassemdry Notes/Report: Iron Bind.Cap.(TIBC) 385 250-450 ug/dL UIBC 329 131-425 ug/dL Iron 56 27-159 ug/dL Iron Saturation 15 15-55 % Ferritin-[id number] Reviewed date:07/18/2024 01:54:35 PM Interpretation: Performing Lab:[facility], [address] [facility], [place], Phone - [phone], Director - MDJodry Notes/Report: Ferritin 8 15-150 ng/mL Reason For Referral Reason Evaluation and manag ement Diagnosis 1 Other cholelithiasis without obstruction (K80.80) Referral Organization [facility] ter Referring Provider First Name Eladio Referring Provider Last Name Tami Referred Provider Specialty Gastrointest inal surgeon General Notes Referral sent to [facility] GI - Office will call pt for scheduling., Emilie Guerrier 07/13/2024 07:43:35 AM > Referral Priority Stat Reason Evaluation and manag ement Diagnosis 1 Iron deficiency anem ia, unspecified (D50.9) Referral Organization [facility] Referring Provider First Name ade Referring Provider Last Name Thalo Referred Provider Specialty Hematology General Notes Referral faxed to [facility]emat[facility] On[facility] - Office will call patient for scheduling., Emilei Guerrier 07/14/2024 08:47:08 AM > Referral Priority Urgent Reason please evaluate and treat Diagnosis 1 Diabetes mellitus du e to underlying condition with diabetic neuropathy, unspecified (E08.40) Referral Organization [facility] Referring Provider First Name ade Referring Provider Last Name Thalo Referred Provider Specialty Endocrinolog y General Notes referral was faxed t o [facility] Endocrinology. Please contact patient for scheduling. Referral Priority Routine Reason please evaluate and treat Diagnosis 1 Post-traumatic stres s disorder, unspecified (F43.10) Referral Organization [facility] Referring Provider First Name [facility] Referring Provider Last Name Thalo Referred Provider Specialty Psychiatry General Notes referral was faxed t o Dr. Mann office. Please contact patient for scheduling., Elana Da Silva 11/03/2024 01:29:36 PM > Referral Priority Routine Reason Please evaluate and treat Diagnosis 1 Post-traumatic stres s disorder, unspecified (F43.10) Referral Organization [facility] Referring Provider First Name ade Referring Provider Last Name Thalo Referred Provider Specialty Psychiatry General Notes Please call patient to schedule appointment.Niles Crystal 01/12/2025 07:07:00 AM > Referral Priority Routine Reason loop recorder 7 days Please evaluate and treat Diagnosis 1 Palpitations (R00.2) Referral Organization [facility] Referring Provider First Name [facility] Referring Provider Last Name [facility] Referred Provider Specialty Cardiology General Notes Please call the dara ent to schedule the appointment, [facility] Cardiology. Please contact them at [phone], Aurora James 03/06/2025 03:10:24 PM > Referral Priority Routine Medications Medication SIG (Take, Route, Frequency, Duration) Notes Start Date End Date Status traMADol HCl 50 MG 1 tablet as needed Orally Once a day; Duration: 14 days 08/04/2023 Not-Taking FreeStyle Lite Test - as directed In Vitro Active Bactrim DS 800-160 MG 1 tablet Orally Tw ice a day; Duration: 3 days 11/04/2023 Not-Taking Fish Oil 1000 MG 1 capsule Orally Onc e a day Active tiZANidine HCl 2 MG 1 tablet as needed Orally Three times a day; Duration: 7 days 08/04/2023 Not-Taking Metoprolol Tartrate 25 MG 0.5 tablet wit h food Orally Twice a day; Duration: 30 day(s) Active Glucose 4 GM as directed Orally 3 0; Duration: 30 days 10/13/2024 Active Abilify 10 MG 1 tablet Orally Once a day Active Lisinopril 10 MG TAKE 1 TABLET BY [facility] EVERY DAY FOR 90 DAYS; Duration: 90 Active Calcium Carbonate 1250 (500 Ca) MG 1 tablet with food Orally Twice a day Active Ferrous Gluconate 324 (38 Fe) MG TAKE 1 TABLET BY MOUTH EVERY DAY WITH WATER OR JUICE BETWEEN MEALS; Duration: 90 Active Amitriptyline HCl 25 MG 1 tablet at bedt david Orally Once a day; Duration: 30 day(s) Active FreeStyle Sal 2 Sensor - Take as DIRECTED TRANSDERMAL CHANGE EVERY 14 DAYS 30 DAYS; Duration: 30 days Active Nitrostat 0.4 MG as directed Sublingual Active Gabapentin 300 MG TAKE 1 CAPSULE BY [facility] THREE TIMES A DAY; Duration: 30 Active tiZANidine HCl 4 MG 1 tablet as needed Orally Three times a day; Duration: 7 days 05/06/2022 Not-Taking SEROquel 25 MG 1 tablet at bedtime Orally Once a day Active HumaLOG KwikPen 100 UNIT/ML Sliding scale; DX: E11.9 Subcutaneous before meals; Duration: 30 days Active Ambien 10 MG 1 tablet at bedtime as needed Orally Once a day Active FreeStyle Sal 2 [place] - as directed Active hydrOXYzine HCl 25 MG 1 tablet as needed Orally every 8 hrs Active BD Pen Needle Che U/F 32G X 4 MM Check blood sugar three times a day DX: E11.9; Duration: 30 days Active Vitamin D3 50 MCG (2000 UT) TAKE 1 CAPSULE BY MOUTH EVERY DAY FOR 90 DAYS; Duration: 90 Active Baclofen 10 MG 1 tablet as needed Orally Twice a day; Duration: 30 days Active Lansoprazole 30 MG 1 capsule before a m eal Orally Once a day; Duration: 30 days 08/15/2024 Active Farxiga 10 MG 1/2 tab Orally Once a day Active Laxative 5 MG 1 tablet as needed Orally Once a day Active glipiZIDE 5 MG 1 tablet 30 minutes before breakfast Orally Once a day 11/03/2024 Active Famotidine 40 MG 1 tablet Orally Once a day; Duration: 30 days 08/15/2024 Active Albuterol Sulfate HFA 108 (90 Base) MCG/ACT INHALE 2 PUFFS BY MOUTH NEEDED EVERY 6 HOURS.; Duration: 25 Active Omeprazole 40 MG 1 capsule 30 minutes before morning meal Orally Once a day; Duration: 30 days Not-Taking Prazosin HCl 1 MG 1 capsule at bedtime Orally Once a day; Duration: 30 days Active Lantus SoloStar 100 UNIT/ML 32 units Subcutaneous once a day; Duration: 30 days Active ProAir HFA 108 (90 Base) MCG/ACT INHALE 2 PUFFS BY MOUTH EVERY 6 HOURS NEEDED; Duration: 25 Active Reglan 5 MG 1 tablet before meal s Orally Twice a day; Duration: 30 days 02/09/2025 Active Nabumetone 500 MG 1 tablet Orally Twic e a day; Duration: 30 day(s) 05/21/2020 Active Aspirin Low Dose 81 MG TAKE 1 TABLET BY MOUTH EVERY DAY; Duration: 90 Active FLUoxetine HCl 40 MG TAKE 1 CAPSULE BY M OUTH EVERY DAY FOR 30 DAYS; Duration: 30 Active Vicodin 5-300 MG 1 tablet as needed Orally every 6 hrs Not-Taking FreeStyle Lancets - as directed; Duratio n: 30 days Active Diflucan 150 MG 1 tablet Orally once ; Duration: 1 days 11/04/2023 Not-Taking Phoenix 3 1000 MG 3 capsules Orally On ce a day; Duration: 30 days 08/13/2023 Active traMADol HCl 50 MG 1 tablet as needed Orally Once a day; Duration: 14 days 07/14/2024 Not-Taking Nuedexta 20-10 MG 1 capsule Orally Twi ce a day Active Ubrelvy 50 MG 1 tablet as needed, may take second dose at least 2 hours after first dose up to 4 tablets per day as needed Orally Once a day; Duration: 30 days As needed 01/11/2025 Active Albuterol Sulfate HFA 108 (90 Base) MCG/ACT 1 puff as needed Inhalation every 4 hrs; Duration: 30 days 12/25/2024 Active metFORMIN HCl 1000 MG TAKE 1 TABLET BY M OUTH TWICE A DAY WITH MEALS; Duration: 90 Active Immunizations Vaccine Route Administration Date Status [...] W/U Status Risk Notes Problem Helicobacter pylori (33210181) Helicobacter pylori [H. 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) Active confirmed Problem Moderate recurrent major depression (99970560) Major depressive disorder, recurrent, moderate (F33.1) Active confirmed Problem Generalized anxiety disorder (23439891) Generalized anxiety disorder (F41.1) Active confirmed Problem Post-traumatic stress disorder (54636998) Post-traumatic stress disorder, unspecified (F43.10) Active confirmed Problem Migraine without aura, not refractory (disorder) (281966240) Migraine, unspecified, not intractable, without status migrainosus (G43.909) Active confirmed Problem Transient ischemic attack (301634869) Transient cerebral ischemic attack, unspecified (G45.9) Active confirmed Problem Insomnia (623547513) Insomnia, unspecified (G47.00) Active confirmed Problem Vertiginous syndrome (24346374) Unspecified disorder of vestibular function, unspecified ear (H81.90) Active confirmed Problem Essential hypertension (87701592) Essential (primary) hypertension (I10) Active confirmed Problem Gastro-esophageal reflux disease without esophagitis (781425634) Gastro-esophageal reflux disease without esophagitis (K21.9) Active confirmed Problem Cholelithiasis without obstruction (09175951) Other cholelithiasis without obstruction (K80.80) Active confirmed Problem Osteoarthritis (605180753) Unspecified osteoarthritis, unspecified site (M19.90) Active confirmed Problem Backache (415096276) Dorsalgia, unspecified (M54.9) Active confirmed Problem Excessive and frequent menstruation (031967234) Excessive and frequent menstruation with regular cycle (N92.0) Active confirmed Problem Abnormal uterine bleeding (75609148314745) Abnormal uterine and vaginal bleeding, unspecified (N93.9) Active confirmed Problem Abnormal gait (23165134) Unspecified abnormalities of gait and mobility (R26.9) Active confirmed Problem Long-term current use of insulin (839366178) USP (current) use of insulin (Z79.4) Active confirmed Problem Essential hypertension (10729513) HTN (hypertension), benign (I10) Active confirmed Problem Anemia (619440170) Anemia, unspecified type (D64.9) Active confirmed Problem Menstrual periods irregular (14507914) Menstrual periods irregular (N92.6) Active confirmed Vital Signs Heart Rate 72 /min 03/14/2025 Temperature 97.4 degrees Fahrenheit 03/14/2025 Blood pressure diastolic 76 mm Hg 03/14/2025 Oximetry 99 % 03/14/2025 Height 64 in 03/14/2025 Blood pressure systolic 110 mm Hg 03/14/2025 Weight 185.8 lbs 03/14/2025 BMI 31.89 kg/m2 03/14/2025 Encounters Encounter Location Date Provider Diagnosis [address] [place] [address] 07/12/2024 Eladio Garrett Other cholelithiasis without obstruction K80.80 ; Anemia, unspecified type D64.9 and Diabetes mellitus due to underlying condition with diabetic neuropathy, unspecified E08.[address] [place] [address] 08/15/2024 Eladio Garrett Pre-operative cleara nce Z01.818 ; Anemia, unspecified type D64.9 ; Menstrual periods irregular N92.6 and Other cholelithiasis without obstruction K80.[address] [place] [address] 08/16/2024 ALBERT MARIONL [address] [place] [address] 09/12/2024 Aroosa Alam Anemia, unspecified type D64.9 ; Annual physical exam Z00.00 ; Menstrual periods irregular N92.6 and Other cholelithiasis without obstruction K80.[address] [place] [address] 10/13/2024 Eladio Garrett Diabetes mellitus du e to underlying condition with diabetic neuropathy, unspecified E08.40 ; Anemia, unspecified type D64.9 and Helicobacter pylori [H. pylori] as the cause of diseases classified elsewhere B96.[address] [place] [address] 11/03/2024 Eladio Garrett Type 2 diabetes mellitus without complications E11.9 ; Anemia, unspecified type D64.9 ; Gastro-esophageal reflux disease without esophagitis K21.9 and Post-traumatic stress disorder, unspecified F43.[address] [place] [address] 12/25/2024 ALBERT MOJICA Cough, unspecified R05.9 and Pain in right knee M25.[address] [place] [address] 01/11/2025 Eladio Thaloum Type 2 diabetes mellitus without complications E11.9 ; Anemia, unspecified type D64.9 ; Gastro-esophageal reflux disease without esophagitis K21.9 ; Post-traumatic stress disorder, unspecified F43.10 and Migraine, unspecified, not intractable, without status migrainosus G43.909 [facility] [address] [place] [address] 02/09/2025 Ghadeer Thaloum Type 2 diabetes mellitus without complications E11.9 ; Anemia, unspecified type D64.9 ; Gastro-esophageal reflux disease without esophagitis K21.9 ; Migraine, unspecified, not intractable, without status migrainosus G43.909 ; Palpitation R00.2 and Shortness of breath R06.[address] [place] [address] 03/14/2025 Ghadeer Thaloum Type 2 diabetes mellitus without complications E11.9 ; Anemia, unspecified type D64.9 ; Gastro-esophageal reflux disease without esophagitis K21.9 and Migraine, unspecified, not intractable, without status migrainosus G43.[address] [place] [address] 07/12/[address] [place] [address] 07/17/[address] [place] [address] 07/18/2024 Ghadeer Thaloum Other cholelithiasis without obstruction K80.[address] [place] [address] 08/04/[address] [place] [address] 08/08/2024 PRICE SANAM Other cholelithiasis without obstruction K80.[address] [place] [address] 08/18/[address] [place] [address] 08/18/2024 [facility] [address] [place] [address] 09/12/2024 PRICE GUL Other cholelithiasis without obstruction K80.80 [facility] [address] [place] [address] 09/14/2024 PRICE GUL Anemia, unspecified type D64.9 [facility] [address] [place] [address] 09/18/2024 [facility] [address] [place] [address] 10/11/2024 [facility] [address] [place] [address] 10/16/2024 [facility] [address] [place] [address] 10/19/2024 [facility] [address] [place] [address] 11/03/2024 [facility] [address] [place] [address] 11/03/2024 [facility] [address] [place] [address] 01/02/2025 [facility] [address] [place] [address] 01/15/2025 [facility] Migraine, unspecifie d, not intractable, without status migrainosus G43.909 [facility] [address] [place] [address] 02/09/2025 [facility] [address] [place] [address] 03/14/2025 [facility] [address] [place] [address] 08/25/2024 Eladio Garrett Assessments Encounter Date Diagnosis (ICD Code) Assessment Notes Treatment Notes Treatment Clinical Notes Section Notes 11/03/2024 Type 2 diabetes mellitus without complications (ICD-10 - E11.9) Mrs. Marlow is a 49-year-old female Syriac-speaking patient with type 2 diabetes mellitus anxiety, depression, history of H pylori is here for follow-up. Plan as follows: T2DM: - She is currently following with crowd controller at [facility]. Glipizide has been recently added to the [...] 6-12 months. - She follows with GI [facility]. She has an elective cholecystectomy surgery coming up at [facility]. PTSD: - referred patient to psychiatry I have rendered the services for this patient under direct supervision of Dr. Mojica, who did not see the patient but was available upon request 08/15/2024 Pre-operative clearance (ICD-10 - Z01.818) Mrs. Marlow is a 49-year-old female Syriac-speaking patient with type 2 diabetes mellitus and [...] Other cholelithiasis without obstruction (ICD-10 - K80.80) 07/18/2024 Other cholelithiasis without obstruction (ICD-10 - K80.80) 03/14/2025 Type 2 diabetes mellitus without complications (ICD-10 - E11.9) Mrs. Marlow is a 49-year-old female Syriac-speaking patient with type 2 diabetes mellitus anxiety, depression, history of H pylori is here for follow-up. Plan as follows: T2DM: - She is currently following with crowd controller at [facility]. Recent A1c of 6.9. She does not follow with seo engineer annually. Foot care discussed. Anemia: Irregular menstrual period: - She currently has IUD. She had two iron infusion, she could not tolerate the second round, thus treatment has been aborted. Patient is to resume back on iron supplements. CBC is within normal limit, will check CBC in 6 months. GERD/abdominal pain: - EGD was remarkable for inactive gastritis, negative for hpylori or dysplasia. She has a repeat EGD this month. She is to continue on Lansoprazole and famotidine. C-scope showed internal hemorrhoids but due to poor prep, patient to repeat c-scope in 6-12 months. - She has an upcoming breath test. - She follows with GI [facility]. Migraine: - Continue on ubrelvy during acute attack. Reglan prescription is given to be taken as needed during attack. I have also discussed taking Benadryl and to sit in a quiet dark room during attack. Continue on magnesium supplement on a daily basis General concerns have been discussed I have rendered the services for this patient under direct supervision of Dr. Mojica, who did not see the patient but was available upon request 10/13/2024 Diabetes mellitus due to underlying condition with diabetic neuropathy, unspecified (ICD-10 - E08.40) Mrs. Marlow is a 49-year-old female Syriac-speaking patient with type 2 diabetes mellitus anxiety, [...] She would like to establish care with crowd controller. Referred pt. Anemia: - Iron is currently [...] D64.9) Mrs. Marlow is a 49-year-old female Syriac-speaking patient with type 2 diabetes mellitus anxiety, [...] She would like to establish care with crowd controller. Referred pt. Anemia: - Iron is currently on hold. She has a follow-up with Dr. Barrow next week for further workup. Hypylori; - She is currently on triple therapy. She has a follow-up with GI. I have rendered the services for this patient under direct supervision of Dr. Mojica, who did not see the patient but was available upon request 09/14/2024 Anemia, unspecified type (ICD-10 - D64.9) 12/25/2024 Pain in right knee (ICD-10 - M25.561) Mrs. Marlow is a 49-year-old female Syriac-speaking patient with type 2 diabetes mellitus anxiety, depression, history of H pylori is here for follow-up. She states that recently was seen by Dr. Jones for iron transfusion. She complains of right knee joint pain and cough. Plan is as follows Cough. Most likely viral. She has upcoming cholecystectomy at [facility]. We will do chest x-ray to rule [...] R05.9) Mrs. Marlow is a 49-year-old female Syriac-speaking patient with type 2 diabetes mellitus anxiety, depression, history of H pylori is here for follow-up. She states that recently was seen by Dr. Jones for iron transfusion. She complains of right knee joint pain and cough. Plan is as follows Cough. Most likely viral. She has upcoming cholecystectomy at [facility]. We will do chest x-ray to rule out any underlying pathology.meanwhile she can continue Tessalon Perles and appropriate hydration. Pain right knee joint. Osteoarthritis, tendinitis. Will do x-ray and continue ibuprofen along with Tylenol and recommended weight loss. once we have the results of the x-ray we will decide on further disposition 09/12/2024 Other cholelithiasis without obstruction (ICD-10 - K80.80) 09/12/2024 Annual physical exam (ICD-10 - Z00.00) Mrs. Marlow is a 49-year-old female Syriac-speaking patient with type 2 diabetes mellitus anxiety [...] H pylori completed therapy with Dr. Bebo Boucherorrhagia Anemia, iron deficiency anemia patient is on [...] D64.9) Mrs. Marlow is a 49-year-old female Syriac-speaking patient with type 2 diabetes mellitus anxiety [...] she does not want tdap either 07/12/2024 Other cholelithiasis without obstruction (ICD-10 - K80.80) Mrs. Marlow is a 48-year-old female Syriac-speaking patient with type 2 diabetes mellitus and multiple psych issues here for abdominal pain. Two days ago, she went to [facility] for recurrent abdominal pain. Ultrasound of [...] transfusion. Otherwise, she will be referred to transit department clerk. I have rendered the services for this patient under direct supervision of Dr. Mojica, who did not see the patient but was available upon request 07/12/2024 Anemia, unspecified type (ICD-10 - D64.9) Mrs. Marlow is a 48-year-old female Syriac-speaking patient with type 2 diabetes mellitus and multiple psych issues here for abdominal pain. Two days ago, she went to [facility] for recurrent abdominal pain. Ultrasound of [...] transfusion. Otherwise, she will be referred to transit department clerk. I have rendered the services for this patient under direct supervision of Dr. Mojica, who did not see the patient but was available upon request 02/09/2025 Type 2 diabetes mellitus without complications (ICD-10 - E11.9) Mrs. Marlow is a 49-year-old female Syriac-speaking patient with type 2 diabetes mellitus anxiety, depression, history of H pylori is here for follow-up. Plan as follows: T2DM: - She is currently following with crowd controller at [facility]. Recent A1c of 6.9. She does not follow with seo engineer annually. Foot care discussed. Anemia: Irregular menstrual period: - She currently has IUD. She had two iron infusion, she could not tolerate the second round, thus treatment has been aborted. Patient is to resume back on iron supplements. Previous Hgb was 11.9. Check CBC GERD/abdominal pain: - EGD was remarkable for inactive gastritis, negative for hpylori or dysplasia. She is to continue on Lansoprazole and famotidine. C-scope showed internal hemorrhoids but due to poor prep, patient to repeat c-scope in 6-12 months. - She has an upcoming breath test. - She follows with GI [facility]. Migraine: - Continue on ubrelvy during acute attack. Reglan prescription is given to be taken as needed during attack. I have also discussed taking Benadryl and to sit in a quiet dark room during attack. She can also start taking magnesium supplement on a daily basis Palpitation/shortne ss of breath. Physical examination is unremarkable, heart rate is within normal limits. Heart is in a regular rate and rhythm. TSH was reviewed with the patient is within normal limits. We will check magnesium level, will also get a loop recorder. Given ongoing Shortness of breath will also obtain stress test. However that could also be related to anemia. General concerns have been discussed I have rendered the services for this patient under direct supervision of Dr. Mojica, who did not see the patient but was available upon request 01/15/2025 Migraine, unspecified, not intractable, without status migrainosus (ICD-10 - G43.909) 01/11/2025 Type 2 diabetes mellitus without complications (ICD-10 - E11.9) Mrs. Marlow is a 49-year-old female Syriac-speaking patient with type 2 diabetes mellitus anxiety, depression, history of H pylori is here for follow-up. Plan as follows: T2DM: - She is currently following with crowd controller at [facility]. Glipizide has been recently added to the [...] 6-12 months. - She follows with [facility]. She has an elective cholecystectomy surgery coming up at [facility]. PTSD: - referred patient to psychiatry Migraine: [...] the patient but was available upon request 02/09/2025 Anemia, unspecified type (ICD-10 - D64.9) Mrs. Marlow is a 49-year-old female Syriac-speaking patient with type 2 diabetes mellitus anxiety, depression, history of H pylori is here for follow-up. Plan as follows: T2DM: - She is currently following with crowd controller at [facility]. Recent A1c of 6.9. She does not follow with seo engineer annually. Foot care discussed. Anemia: Irregular menstrual period: - She currently has IUD. She had two iron infusion, she could not tolerate the second round, thus treatment has been aborted. Patient is to resume back on iron supplements. Previous Hgb was 11.9. Check CBC GERD/abdominal pain: - EGD was remarkable for inactive gastritis, negative for hpylori or dysplasia. She is to continue on Lansoprazole and famotidine. C-scope showed internal hemorrhoids but due to poor prep, patient to repeat c-scope in 6-12 months. - She has an upcoming breath test. - She follows with GI [facility]. Migraine: - Continue on ubrelvy during acute attack. Reglan prescription is given to be taken as needed during attack. I have also discussed taking Benadryl and to sit in a quiet dark room during attack. She can also start taking magnesium supplement on a daily basis Palpitation/shortne ss of breath. Physical examination is unremarkable, heart rate is within normal limits. Heart is in a regular rate and rhythm. TSH was reviewed with the patient is within normal limits. We will check magnesium level, will also get a loop recorder. Given ongoing Shortness of breath will also obtain stress test. However that could also be related to anemia. General concerns have been discussed I have rendered the services for this patient under direct supervision of Dr. Mojica, who did not see the patient but was available upon request 01/11/2025 Anemia, unspecified type (ICD-10 - D64.9) Mrs. Marlow is a 49-year-old female Syriac-speaking patient with type 2 diabetes mellitus anxiety, depression, history of H pylori is here for follow-up. Plan as follows: T2DM: - She is currently following with crowd controller at [facility]. Glipizide has been recently added to the [...] in 6-12 months. - She follows with [facility]. She has an elective cholecystectomy surgery coming up at [facility]. PTSD: - referred patient to psychiatry Migraine: [...] the patient but was available upon request 03/14/2025 Anemia, unspecified type (ICD-10 - D64.9) Mrs. Marlow is a 49-year-old female Syriac-speaking patient with type 2 diabetes mellitus anxiety, depression, history of H pylori is here for follow-up. Plan as follows: T2DM: - She is currently following with crowd controller at [facility]. Recent A1c of 6.9. She does not follow with seo engineer annually. Foot care discussed. Anemia: Irregular menstrual period: - She currently has IUD. She had two iron infusion, she could not tolerate the second round, thus treatment has been aborted. Patient is to resume back on iron supplements. CBC is within normal limit, will check CBC in 6 months. GERD/abdominal pain: - EGD was remarkable for inactive gastritis, negative for hpylori or dysplasia. She has a repeat EGD this month. She is to continue on Lansoprazole and famotidine. C-scope showed internal hemorrhoids but due to poor prep, patient to repeat c-scope in 6-12 months. - She has an upcoming breath test. - She follows with [facility]. Migraine: - Continue on ubrelvy during acute attack. Reglan prescription is given to be taken as needed during attack. I have also discussed taking Benadryl and to sit in a quiet dark room during attack. Continue on magnesium supplement on a daily basis General concerns have been discussed I have rendered the services for this patient under direct supervision of Dr. Mojica, who did not see the patient but was available upon request 10/13/2024 Helicobacter pylori [H. pylori] as the cause of diseases classified elsewhere (ICD-10 - B96.81) Mrs. Marlow is a 49-year-old female Syriac-speaking patient with type 2 diabetes mellitus anxiety, [...] She would like to establish care with crowd controller. Referred pt. Anemia: - Iron is currently [...] N92.6) Mrs. Marlow is a 49-year-old female Syriac-speaking patient with type 2 diabetes mellitus anxiety [...] E08.40) Mrs. Marlow is a 48-year-old female Syriac-speaking patient with type 2 diabetes mellitus and multiple psych issues here for abdominal pain. Two days ago, she went to [facility] for recurrent abdominal pain. Ultrasound of [...] transfusion. Otherwise, she will be referred to transit department clerk. I have rendered the services for this patient under direct supervision of Dr. Mojica, who did not see the patient but was available upon request 08/15/2024 Anemia, unspecified type (ICD-10 - D64.9) Mrs. Marlow is a 49-year-old female Syriac-speaking patient with type 2 diabetes mellitus and [...] D64.9) Mrs. Marlow is a 49-year-old female Syriac-speaking patient with type 2 diabetes mellitus anxiety, depression, history of H pylori is here for follow-up. Plan as follows: T2DM: - She is currently following with crowd controller at [facility]. Glipizide has been recently added to the [...] in 6-12 months. - She follows with [facility]. She has an elective cholecystectomy surgery coming up at [facility]. PTSD: - referred patient to psychiatry I have rendered the services for this patient under direct supervision of Dr. Mojica, who did not see the patient but was available upon request 11/03/2024 Gastro-esophageal reflux disease without esophagitis (ICD-10 - K21.9) Mrs. Marlow is a 49-year-old female Syriac-speaking patient with type 2 diabetes mellitus anxiety, depression, history of H pylori is here for follow-up. Plan as follows: T2DM: - She is currently following with crowd controller at [facility]. Glipizide has been recently added to the [...] in 6-12 months. - She follows with [facility]. She has an elective cholecystectomy surgery coming up at [facility]. PTSD: - referred patient to psychiatry I have rendered the services for this patient under direct supervision of Dr. Mojica, who did not see the patient but was available upon request 08/15/2024 Menstrual periods irregular (ICD-10 - N92.6) Mrs. Marlow is a 49-year-old female Syriac-speaking patient with type 2 diabetes mellitus and [...] K80.80) Mrs. Marlow is a 49-year-old female Syriac-speaking patient with type 2 diabetes mellitus anxiety [...] vaccination she does not want tdap either 02/09/2025 Gastro-esophageal reflux disease without esophagitis (ICD-10 - K21.9) Mrs. Marlow is a 49-year-old female Syriac-speaking patient with type 2 diabetes mellitus anxiety, depression, history of H pylori is here for follow-up. Plan as follows: T2DM: - She is currently following with crowd controller at [facility]. Recent A1c of 6.9. She does not follow with seo engineer annually. Foot care discussed. Anemia: Irregular menstrual period: - She currently has IUD. She had two iron infusion, she could not tolerate the second round, thus treatment has been aborted. Patient is to resume back on iron supplements. Previous Hgb was 11.9. Check CBC GERD/abdominal pain: - EGD was remarkable for inactive gastritis, negative for hpylori or dysplasia. She is to continue on Lansoprazole and famotidine. C-scope showed internal hemorrhoids but due to poor prep, patient to repeat c-scope in 6-12 months. - She has an upcoming breath test. - She follows with [facility]. Migraine: - Continue on ubrelvy during acute attack. Reglan prescription is given to be taken as needed during attack. I have also discussed taking Benadryl and to sit in a quiet dark room during attack. She can also start taking magnesium supplement on a daily basis Palpitation/shortne ss of breath. Physical examination is unremarkable, heart rate is within normal limits. Heart is in a regular rate and rhythm. TSH was reviewed with the patient is within normal limits. We will check magnesium level, will also get a loop recorder. Given ongoing Shortness of breath will also obtain stress test. However that could also be related to anemia. General concerns have been discussed I have rendered the services for this patient under direct supervision of Dr. Mojica, who did not see the patient but was available upon request 03/14/2025 Gastro-esophageal reflux disease without esophagitis (ICD-10 - K21.9) Mrs. Marlow is a 49-year-old female Syriac-speaking patient with type 2 diabetes mellitus anxiety, depression, history of H pylori is here for follow-up. Plan as follows: T2DM: - She is currently following with crowd controller at [facility]. Recent A1c of 6.9. She does not follow with seo engineer annually. Foot care discussed. Anemia: Irregular menstrual period: - She currently has IUD. She had two iron infusion, she could not tolerate the second round, thus treatment has been aborted. Patient is to resume back on iron supplements. CBC is within normal limit, will check CBC in 6 months. GERD/abdominal pain: - EGD was remarkable for inactive gastritis, negative for hpylori or dysplasia. She has a repeat EGD this month. She is to continue on Lansoprazole and famotidine. C-scope showed internal hemorrhoids but due to poor prep, patient to repeat c-scope in 6-12 months. - She has an upcoming breath test. - She follows with [facility]. Migraine: - Continue on ubrelvy during acute attack. Reglan prescription is given to be taken as needed during attack. I have also discussed taking Benadryl and to sit in a quiet dark room during attack. Continue on magnesium supplement on a daily basis General concerns have been discussed I have rendered the services for this patient under direct supervision of Dr. Mojica, who did not see the patient but was available upon request 01/11/2025 Gastro-esophageal reflux disease without esophagitis (ICD-10 - K21.9) Mrs. Marlow is a 49-year-old female Syriac-speaking patient with type 2 diabetes mellitus anxiety, depression, history of H pylori is here for follow-up. Plan as follows: T2DM: - She is currently following with crowd controller at [facility]. Glipizide has been recently added to the [...] in 6-12 months. - She follows with [facility]. She has an elective cholecystectomy surgery coming up at [facility]. PTSD: - referred patient to psychiatry Migraine: [...] F43.10) Mrs. Marlow is a 49-year-old female Syriac-speaking patient with type 2 diabetes mellitus anxiety, depression, history of H pylori is here for follow-up. Plan as follows: T2DM: - She is currently following with crowd controller at [facility]. Glipizide has been recently added to the [...] 6-12 months. - She follows with [facility]. She has an elective cholecystectomy surgery coming up at [facility]. PTSD: - referred patient to psychiatry Migraine: [...] the patient but was available upon request 02/09/2025 Migraine, unspecified, not intractable, without status migrainosus (ICD-10 - G43.909) Mrs. Marlow is a 49-year-old female Syriac-speaking patient with type 2 diabetes mellitus anxiety, depression, history of H pylori is here for follow-up. Plan as follows: T2DM: - She is currently following with crowd controller at [facility]. Recent A1c of 6.9. She does not follow with seo engineer annually. Foot care discussed. Anemia: Irregular menstrual period: - She currently has IUD. She had two iron infusion, she could not tolerate the second round, thus treatment has been aborted. Patient is to resume back on iron supplements. Previous Hgb was 11.9. Check CBC GERD/abdominal pain: - EGD was remarkable for inactive gastritis, negative for hpylori or dysplasia. She is to continue on Lansoprazole and famotidine. C-scope showed internal hemorrhoids but due to poor prep, patient to repeat c-scope in 6-12 months. - She has an upcoming breath test. - She follows with [facility]. Migraine: - Continue on ubrelvy during acute attack. Reglan prescription is given to be taken as needed during attack. I have also discussed taking Benadryl and to sit in a quiet dark room during attack. She can also start taking magnesium supplement on a daily basis Palpitation/shortne ss of breath. Physical examination is unremarkable, heart rate is within normal limits. Heart is in a regular rate and rhythm. TSH was reviewed with the patient is within normal limits. We will check magnesium level, will also get a loop recorder. Given ongoing Shortness of breath will also obtain stress test. However that could also be related to anemia. General concerns have been discussed I have rendered the services for this patient under direct supervision of Dr. Mojica, who did not see the patient but was available upon request 03/14/2025 Migraine, unspecified, not intractable, without status migrainosus (ICD-10 - G43.909) Mrs. Marlow is a 49-year-old female Syriac-speaking patient with type 2 diabetes mellitus anxiety, depression, history of H pylori is here for follow-up. Plan as follows: T2DM: - She is currently following with crowd controller at [facility]. Recent A1c of 6.9. She does not follow with seo engineer annually. Foot care discussed. Anemia: Irregular menstrual period: - She currently has IUD. She had two iron infusion, she could not tolerate the second round, thus treatment has been aborted. Patient is to resume back on iron supplements. CBC is within normal limit, will check CBC in 6 months. GERD/abdominal pain: - EGD was remarkable for inactive gastritis, negative for hpylori or dysplasia. She has a repeat EGD this month. She is to continue on Lansoprazole and famotidine. C-scope showed internal hemorrhoids but due to poor prep, patient to repeat c-scope in 6-12 months. - She has an upcoming breath test. - She follows with [facility]. Migraine: - Continue on ubrelvy during acute attack. Reglan prescription is given to be taken as needed during attack. I have also discussed taking Benadryl and to sit in a quiet dark room during attack. Continue on magnesium supplement on a daily basis General concerns have been discussed I have rendered the services for this patient under direct supervision of Dr. Mojica, who did not see the patient but was available upon request 08/15/2024 Other cholelithiasis without obstruction (ICD-10 - K80.80) Mrs. Marlow is a 49-year-old female Syriac-speaking patient with type 2 diabetes mellitus and [...] F43.10) Mrs. Marlow is a 49-year-old female Syriac-speaking patient with type 2 diabetes mellitus anxiety, depression, history of H pylori is here for follow-up. Plan as follows: T2DM: - She is currently following with crowd controller at [facility]. Glipizide has been recently added to the [...] in 6-12 months. - She follows with [facility]. She has an elective cholecystectomy surgery coming up at [facility]. PTSD: - referred patient to psychiatry I have rendered the services for this patient under direct supervision of Dr. Mojica, who did not see the patient but was available upon request 01/11/2025 Migraine, unspecified, not intractable, without status migrainosus (ICD-10 - G43.909) Mrs. Marlow is a 49-year-old female Syriac-speaking patient with type 2 diabetes mellitus anxiety, depression, history of H pylori is here for follow-up. Plan as follows: T2DM: - She is currently following with crowd controller at [facility]. Glipizide has been recently added to the [...] in 6-12 months. - She follows with [facility]. She has an elective cholecystectomy surgery coming up at [facility]. PTSD: - referred patient to psychiatry Migraine: [...] the patient but was available upon request 02/09/2025 Palpitation (ICD-10 - R00.2) Mrs. Marlow is a 49-year-old female Syriac-speaking patient with type 2 diabetes mellitus anxiety, depression, history of H pylori is here for follow-up. Plan as follows: T2DM: - She is currently following with crowd controller at [facility]. Recent A1c of 6.9. She does not follow with seo engineer annually. Foot care discussed. Anemia: Irregular menstrual period: - She currently has IUD. She had two iron infusion, she could not tolerate the second round, thus treatment has been aborted. Patient is to resume back on iron supplements. Previous Hgb was 11.9. Check CBC GERD/abdominal pain: - EGD was remarkable for inactive gastritis, negative for hpylori or dysplasia. She is to continue on Lansoprazole and famotidine. C-scope showed internal hemorrhoids but due to poor prep, patient to repeat c-scope in 6-12 months. - She has an upcoming breath test. - She follows with GI [facility]. Migraine: - Continue on ubrelvy during acute attack. Reglan prescription is given to be taken as needed during attack. I have also discussed taking Benadryl and to sit in a quiet dark room during attack. She can also start taking magnesium supplement on a daily basis Palpitation/shortne ss of breath. Physical examination is unremarkable, heart rate is within normal limits. Heart is in a regular rate and rhythm. TSH was reviewed with the patient is within normal limits. We will check magnesium level, will also get a loop recorder. Given ongoing Shortness of breath will also obtain stress test. However that could also be related to anemia. General concerns have been discussed I have rendered the services for this patient under direct supervision of Dr. Mojica, who did not see the patient but was available upon request 02/09/2025 Shortness of breath (ICD-10 - R06.02) Mrs. Marlow is a 49-year-old female Syriac-speaking patient with type 2 diabetes mellitus anxiety, depression, history of H pylori is here for follow-up. Plan as follows: T2DM: - She is currently following with crowd controller at [facility]. Recent A1c of 6.9. She does not follow with seo engineer annually. Foot care discussed. Anemia: Irregular menstrual period: - She currently has IUD. She had two iron infusion, she could not tolerate the second round, thus treatment has been aborted. Patient is to resume back on iron supplements. Previous Hgb was 11.9. Check CBC GERD/abdominal pain: - EGD was remarkable for inactive gastritis, negative for hpylori or dysplasia. She is to continue on Lansoprazole and famotidine. C-scope showed internal hemorrhoids but due to poor prep, patient to repeat c-scope in 6-12 months. - She has an upcoming breath test. - She follows with [facility]. Migraine: - Continue on ubrelvy during acute attack. Reglan prescription is given to be taken as needed during attack. I have also discussed taking Benadryl and to sit in a quiet dark room during attack. She can also start taking magnesium supplement on a daily basis Palpitation/shortne ss of breath. Physical examination is unremarkable, heart rate is within normal limits. Heart is in a regular rate and rhythm. TSH was reviewed with the patient is within normal limits. We will check magnesium level, will also get a loop recorder. Given ongoing Shortness of breath will also obtain stress test. However that could also be related to anemia. General concerns have been discussed I have rendered the services for this [...] 23 HEMOGLOBIN A1C WITH EST GLUCOSE 09/30/19 23 TSH WITH REFLEX TO FT4 09/30/2022 Stress Echocardiogram 02/09/2025 Mammo: Diagnostic Mammogram Bilateral Xray: Knee Right (Standard, 4 Views) Magnesium-[id number] 02/09/2025 CBC/Differential (No Platelet)-[id number] CBC/Differential (No Platelet)-[id number] Albumin/Creatinine Ratio,Urine-[id number] Comp. Metabolic Panel [id number] 2024 A1c w/GlycoMark(R) Reflex-[id number] 024 CBC/Differential (No Platelet)-[id number] Next Appt Details Provider Name:Eladio multani, 05/15/2025 01:00:00 PM, [address] [facility] [address], [place], [address], Provider Name:Eladio multani, 09/13/2025 02:00:00 PM, [address] [facility] [address], [place], [address], Insurance Providers Payer Name Payer Address Payer Phone Subscriber Number Group Number Insured Name Patient Relationship to Insured Coverage Start Date Coverage End Date [facility]) [address] [address] [place] [address] [id number] Ele Valencia Self - patient is the insured Medical (General) History Medical History History ICD Code Insulin-dependent DM type II and she see Lisette Bruce PRODUCT SUPPORT SPECIALIST Hypertension Insomnia Generalized anxiety disorder And see Dr Shannon Mcginnis PTSD Diabetic neuropathy Osteoarthritis Acid reflux Asthma Pseudobulbar disorder Surgical History Surgery Date(Month/Year) cholecystectomy 2024 Hospitalization History Reason Date(Month/Year) confused on meds as she lost her [employer] SCALL[employer]
--- OUTSIDE RECORDS SUMMARY | 2025-05-12 14:03 | XMS_ITS | Clinical Summary ---
Author Organization [facility] Address [address] [place] [address] Phone Care Team Providers Care Assayer Helper Name Role Phone Yarely Mojica MD Primary Care Provider [phone] Allergies No known active allergies Medications aspirin [...] 24 hr tablet 1 TABLET BY MOUTH DAILY,INSTR:RI BREAKFAST Active Active Problems Problem Noted Date Diagnosed Date Trigger ring finger of right hand 05/04/2023 Nodule of skin of hand 08/26/2022 Abnormal gait 04/08/2022 Backache 04/08/2022 Class 2 obesity 04/08/2022 Diabetic neuropathy ([facility] V24, [facility] V28) 0 04/08/2022 Essential hypertension 04/08/2022 Gastro-esophageal reflux disease without esophag itis 04/08/2022 Generalized anxiety disorder 04/08/2022 Insomnia 04/08/2022 Iron deficiency anemia 04/08/2022 Moderate recurrent major dep ression ([facility] V24, [facility] V28) 04/08/2022 Osteoarthrosis 04/08/2022 Transient ischemic attack 04/08/2022 Post-traumatic stress disorder 04/08/2022 Severe obesity (BMI >= 40) ([facility] V24, [facility] V28) 04/08/2022 Overview (08/17/2024): Body mass index (BMI) greater than 40 Encounters Date Type Department Care Team Description 03/23/2025 2:30 PM EDT Ancillary Procedure [facility] [address] [facility] [address] [place] [address] Shortness of breath from Last 3 Months Surgical History Surgery Date Site/Laterality Comments SECTION PROCEDURE: HISTORICAL Medical History Medical History Date Comments Diabetes mellitus type 2, co ntrolled, with complications ([facility] V24, [facility] V28) DX:Diabetes mellitus type 2, controlled, with complications ([facility]) Essential hypertension DX:Essent ial hypertension Anxiety state [...] CV ECHO PROCEDURES Final Re sult * [facility] SCREENING DIGITAL (05/07/2022 8:06 AM EDT) Anatomical Region Laterality Modality Mammography 05/04/2022 2:48 PM EDT Narrative 05/07/2022 8:06 AM EDT [facility] Diagnostic Imaging Department [address] [place] [id number] Patient: ELE DEL VALLE /Age/Sex: 1975 - 47 - F Unit#: [id number] Location/Status: SPDIMAM/REG CLI Mnemonic/Ordering Site: [facility] Ordering Physician: YARELY MOJICA MD Dada Screening Digital - 05/04/22 - 1523 EXAM: [facility] Screening Digital EXAM DATE AND TIME: 05/04/2022 3:24 PM HISTORY: Screening. COMPARISON: 05/03/14 outside study TECHNIQUE: CC and MLO views of both breasts were obtained using full field digital mammography. Bilateral digital breast tomosynthesis was performed in the MLO projection. Computer aided detection with the Swagsy 7.2-H was employed. TISSUE DENSITY: c. The [...] recall) RECOMMENDATION(S): 1: Repeat film(s) needed LEFT 85347, 55072 3340F, 7025F Dictating Physician: GAY HERNANDEZ MD Electronically Signed by: GAY HERNANDEZ MD Dic Date/Time: 05/07/22803 Sign date/Time: 05/07/22805 Procedure Note Gay Hernandez MD - 09/16/2022 [facility] Diagnostic Imaging Department [address] [place] [address] Patient: ELE DEL VALLE /Age/Sex: 1975 - 47 - F Unit#: [id number] Location/Status: [facility] CLI Mnemonic/Ordering Site: [facility] Ordering Physician: YARELY MOJICA MD [facility] Screening Digital - 05/04/22 - 1523 EXAM: [facility] Screening Digital EXAM DATE AND TIME: 05/04/2022 3:24 PM HISTORY: Screening. COMPARISON: 05/03/14 outside study TECHNIQUE: CC and MLO views of both breasts were obtained using fullfield digital mammography. Bilateral digital breast tomosynthesis was performedin the MLO projection. Computer aided detection with the Swagsy 7.2-Clinical Innovationsas employed. TISSUE DENSITY: c. The breasts are [...] recall) RECOMMENDATION(S): 1: Repeat film(s) needed LEFT 19554, 14925 3340F, 7025F Dictating Physician: GAY HERNANDEZ MD Electronically Signed by: GAY HERNANDEZ MD Dic Date/Time: 05/07/22803 Sign date/Time: 05/07/22805 Yarely Mojica MD IMG BI PROCEDURES Final Result from Last 3 Months or Most Recently Relevant to Health Maintenance Insurance [facility] Care Teams Assayer Helper Relationship Specialty Start Date End Date Yarely Mojica MD [address] [place] [phone] PCP - General Internal Medicine 03/05/22
--- OUTSIDE RECORDS SUMMARY | 2025-05-12 14:03 | XMS_ITS | Clinical Summary ---
Author Organization [facility] Address [address] [place] [address] Care Team Providers Care Animal Keeper Name Role Phone Unavailable Primary Care Provider [...] complication, with long-term current use of insulin ([facility]) Take 1,000 mg by mouth 2 (two) times daily Per Endo 1 7 Active ADITYA PEN NEEDLE 32 gauge x 5/32 ndleIndications:T ype 2 diabetes mellitus without complication, with long-term current use of insulin ([facility]) Per Endo 0 7 Active ONGLYZA 5 mg tabletIndications :Type 2 diabetes mellitus without complication, with long-term current use of insulin ([facility]) Take by mouth once daily [...] mcg/actuation inhalerIndication s:Mild intermittent asthma without complication ([facility]) Inhale 2 Puffs into the [...] 11/05/2018 Overview (07/02/2019): 09/29/18 - Seen at [place] ED c/o left sided chest pain [...] (01/25/2017): Due to menorrhagia Mild intermittent asthma ([facility]) 01/25/2017 Type 2 diabetes mellitus without complication Overview (06/26/2019): F/U [facility] Endo 03/25/18 - Endo F/U. HgA1c 8.8%. [...] Plan of Treatment Not on file Insurance [facility] [employer] [employer] [facility] [employer]
[2025-05-12 14:08] VITALS: BP 146/87; PULSE 77; RESP 18; TEMP 36.8; O2SAT 100
[2025-05-12 14:10] LABS: Alanine Aminotransferase 23 U/L (0-31); Albumin Level 4.5 g/dL (3.5-5.0); Alkaline Phosphatase 79 U/L (39-117); Anion Gap 13 (12-20); Aspartate Amino Transferase 23 U/L (5-31); Blood Urea Nitrogen 9 mg/dL (9-16); Calcium 9.9 mg/dL (8.4-10.2); Carbon Dioxide 23 mmol/L (22-29); Chloride 106 mmol/L (96-108); Creatinine Clr Calc Pharmacy 106.9; Estimated Glomerular Filt Rate > 60; Potassium 4.0 mmol/L (3.3-5.1); Sodium 138 mmol/L (135-145); Total Protein 8.0 g/dL (6.5-8.0)
[2025-05-12 14:18] LABS: Troponin-I High Sensitivity < 2.7 ng/L (<3.5-17.0)
--- NOTE | 2025-05-12 16:07 | PC.NURSE ---
Pt resting quietly in room; vss; SR per tele; pt denies N/V/dizziness at this time
[2025-05-12 16:16] VITALS: BP 136/71; PULSE 80; RESP 15; TEMP 36.8; O2SAT 100
[2025-05-12 16:58] LABS: Resp Syncy Virus RNA Qual PCR NEGATIVE (Negative); SARS COV2 PCR INHOUSE NEGATIVE (Negative)
[2025-05-12] MEDS: iohexoL 350 MG/ML 100 ML INFUS..BTL 65 ML IV (17:00)
[2025-05-12 17:07] LABS: Glucose, Whole Blood 105 mg/dL (60-115)
[2025-05-12 18:22] VITALS: BP 132/67; PULSE 76; RESP 16; TEMP 36.7; O2SAT 100
[2025-05-12 19:57] VITALS: BP 116/81; PULSE 79; RESP 16; TEMP 36.7; O2SAT 100
== END 2025-05-12 19:58 | disposition home or self-care (01) ==
PROVIDERS: Nurse Practitioner Family; Physician Assistant Medical; Emergency Provider Emergency Medicine; PCP Hospitalist
DX: R07.9 Chest pain, unspecified (principal); R06.02 Shortness of breath; K21.9 Gastro-esophageal reflux disease without esophagitis; I10 Essential (primary) hypertension; F32.A Depression, unspecified; J45.909 Unspecified asthma, uncomplicated; G43.909 Migraine, unspecified, not intractable, without status migrainosus; E11.40 Type 2 diabetes mellitus with diabetic neuropathy, unspecified; E55.9 Vitamin D deficiency, unspecified; M54.9 Dorsalgia, unspecified; R00.2 Palpitations; D72.829 Elevated white blood cell count, unspecified; Z79.82 Long term (current) use of aspirin; Z79.4 Long term (current) use of insulin; Z79.84 Long term (current) use of oral hypoglycemic drugs
CPT/HCPCS: 36415; 71046; 71275; 80048; 80076; 82947; 84484; 85025; 87637; 93005; 99285; Q9967

== ENCOUNTER → 2025-05-12 13:17 | Outpatient (BNV) | payer OTHER, SELFPAY | PROVIDERS: Emergency Provider Emergency Medicine; PCP Hospitalist; Visit Provider Internal Medicine Cardiovascular Disease | DX: I25.2 Old myocardial infarction (principal) | CPT/HCPCS: 93010 ==

== ENCOUNTER → 2025-05-12 13:41 | Outpatient (BNV) | payer OTHER, SELFPAY | PROVIDERS: PCP Hospitalist; Visit Provider Nuclear Medicine | DX: R07.9 Chest pain, unspecified (principal) | CPT/HCPCS: 71046; 71275 ==